=== PATIENT | male | born 1955 | race Caucasian/White ===

== ENCOUNTER 2024-12-11 00:42 | Day surgery (SDC) | payer MEDICARE, MEDICAID, SELFPAY ==
[2024-12-09 09:51] VITALS: BMI 29.1
[2024-12-11] VITALS (7 sets, daily range): BP systolic 118–139; BP diastolic 57–68; PULSE 54–63; RESP 16–20; TEMP 36.1–36.7; O2SAT 96–99
--- OUTSIDE RECORDS SUMMARY | 2024-12-11 00:44 | XMS_ITS | Encounter Summary ---
Author Organization [facility] Address [address] [place] [address] Phone Care Team Providers Care Rough Planer Tender Name Role Phone Marco Woods MD Primary Care Provider Kirsten Niño MD Unavailable Chin Burrows MD Unavailable Kelsea Root RN Unavailable Unavailable Michelle Mendes APRN, CIGAR MAKING MACHINE OPERATOR Unavailable [phone] Chantelle Nix APRN, CIGAR MAKING MACHINE OPERATOR Unavailable Reason for Visit * Reason Comments Medication Refill Encounter Details Date Type Department Care Team (Late st Contact Info) Description 07/21/2023 Refill [facility] - Family Medicine - [place] [address] [place] [id number] Marco Woods MD [id number] [address] Medication Refill Social History Tobacco Use Types Packs/Day Years Used Date Smoking Tobacco: Never Smokeless Tobacco: Never Alcohol Use Standard Drinks/Week Comments Not Currently 0 (1 standard drink = 0.6 oz pur e alcohol) Education Answer Date Recorded What is the highest level of school you have completed or the highest degree you have received? 12th grade 04/03/2023 Sexually Active Control Partners Comments Not Currently Comments No Sex and Gender Information Value Date Recorded Sex Assigned at Female 11/22/2023 11:58 AM SWEET POTATO DISINTEGRATOR Legal Sex Female 11:34 PM CDT Gender Identity Female 11/22/2023 11:58 AM SWEET POTATO DISINTEGRATOR Sexual Orientation Not on file Occupation Industry Job Start Date Job End Date disabled Not on file Not on file Not on file COVID-19 Exposure Response Date Recorded In the last 10 days, have yo u been in contact with someone who was confirmed or suspected to have Coronavirus/COVID-19? No / Unsure 06/28/2023 7:54 AM CDT documented as of this encounter Miscellaneous Notes * Telephone Encounter - Amada Orozco RN - 07/23/2023 9:53 AM CDT Name from pharmacy: CYCLOBENZAPRINE 5MG TABLETS Will file in chart as: cyclobenzaprine (FLEXERIL) 5 MG Tablet The original prescription was discontinued on 06/03/2023 by Nash Page MD for the following reason: Therapy completed. documented in this encounter Plan of Treatment Upcoming Encounters Date Type Department Care Team (Late st Contact Info) Description 12/15/2024 3:30 PM SWEET POTATO DISINTEGRATOR Office Visit [facility] - Pulmonology & Sleep Medicine [facility] [address] [place] [address] Michelle Mendes APRN, DREW [address] [facility] [address] [place] [address] 01/30/2025 9:00 AM CDT Office Visit [facility] Medical [facility] - Endocrinology - [place] [address] [place] [id number] Kirsten Niño MD [address] [facility] [address] [place] [address] documented as of this encounter Visit Diagnoses Not on filedocumented in this encounter Additional Health Concerns Infection Onset Date Last Indicated Resolved Time COVID - 19 11/01/2023 11/01/2023 11/11/2023 12:1 6 AM SWEET POTATO DISINTEGRATOR COVID - 19 06/25/2024 06/25/2024 06/25/2024 6:36 PM CDT Assessment Noted Time PHQ-9 Depression Total Score: 0 11/22/19 10:00 AM SWEET POTATO DISINTEGRATOR documented as of this encounter Care Teams Rough Planer Tender Relationship Specialty Start Date End Date Marco Woods MD [address] [facility] [address] [place] [address] PCP - General Family Medicine 11/22/17 Kirsten Niño MD [address] [facility] [address] [place] [address] Consulting Physician Endocrinology 07/17/22 Chin Burrows MD [address] [facility] [address] [place] [address] Consulting Physician General Surgery 11/22/22 Kelsea Root, JUWAN [place] [employer] Reactor Operator 06/15/23 08/26/23 Michelle Mendes APRN, CIGAR MAKING MACHINE OPERATOR [address] [facility] [address] [place] [address] Nurse Practitioner Advanced Practice Nurse 08/14/22 Chantelle Nix APRN, CIGAR MAKING MACHINE OPERATOR [address] [place] [address] Nurse Practitioner Advanced Practice Nurse 02/19/24 documented as of this encounter
--- OUTSIDE RECORDS SUMMARY | 2024-12-11 00:44 | XMS_ITS | Clinical Summary ---
Author Organization [facility] Address [address] [facility] [place] [address] Phone Care Team Providers Care Detective Homicide Squad Name Role Phone Marco Woods MD Primary Care Provider [phone] Kirsten Niño MD Unavailable Chin Burrows MD Unavailable [phone] Michelle Mendes CIGARETTE PAPER TESTER, PLAYGROUND ATTENDANT Unavailable SchChantelle ugalde APRN, PLAYGROUND ATTENDANT Unavailable Allergies Active Allergy Reactions Criticality Noted Date Comments Codeine Sulfate Diarrhea,Nausea,Vomi ti ng Alendronate Other (see Comments) 12/31/2015 Fever, chills, achy Metoclopramide Hcl Other (see Comments) High 022 Tremor/falls Metronidazole Swelling 07/30/2018 Nsaids Other (see Comments) No reaction but not suppose to have because of ulcers Quetiapine Other (see Comments) 12/27/2023 Leg spasms Ropinirole Other (see Comments) 11/02/2023 sneezing Tolmetin Other (see Comments) Low No reaction but not suppose to have because of ulcers Medications Acetaminophen (TYLENOL PO) Take 500 mg by mouth every 8 hours as needed. Active rOPINIRole (REQUIP) 2 MG Tablet TAKE 1 TABLET BY MOUTH EVERY NIGHT 90 Tablet 2 05/13/20 24 Active Linzess 145 MCG CapsuleIndicati ons:Chronic constipation TAKE 1 CAPSULE BY MOUTH EVERY MORNING BEFORE BREAKFAST 30 Capsule 2 10/06/20 24 Active atorvastatin (LIPITOR) 20 MG Tablet Take 1 Tablet by mouth daily. 90 Tablet 3 11/04/19 25 Active ramelteon (ROZEREM) 8 MG Tablet Take 1 Tablet by mouth nightly. 90 Tablet 1 11/04/19 25 Active Phenylephrine-D M-GG-APAP (SUDAFED PE COLD/COUGH PO) Take by mouth. Active levothyroxine (SYNTHROID) 112 MCG Tablet Take 1 Tablet by mouth daily. 90 Tablet 1 11/17/19 25 Active hydrOXYzine (ATARAX) 25 MG Tablet TAKE 2 TABLETS BY MOUTH TWICE A DAY 90 Tablet 11/25/19 25 Active OLANZapine (ZYPREXA) 10 MG Tablet TAKE 1 TABLET BY MOUTH EVERY NIGHT AT BEDTIME 28 Tablet 2 11/25/19 25 Active sertraline (ZOLOFT) 50 MG Tablet TAKE 1 TABLET BY MOUTH TWICE A DAY 56 Tablet 2 11/25/19 25 Active traMADol (ULTRAM) 50 MG TabletIndicatio ns:Pain of upper abdomen Take 1 Tablet by mouth every 8 hours as needed for Moderate or more severe pain. 60 Tablet 12/02/19 25 Active Fluticasone-Ume clidin-Vilant (Trelegy Ellipta) 100-62.5-25 MCG/ACT AEROSOL POWDER, BREATH ACTIVATED take 1 Puff by inhalation daily. 1 Each 3 12/04/19 25 Active OXYGEN CONCENTRATOR 2 L/min by Does not apply route as needed for Other (shortness of breath). Discontinued(E rror) atorvastatin (LIPITOR) 20 MG Tablet TAKE 1 TABLET BY MOUTH DAILY 28 Tablet 5 07/08/20 24 2024 Discontinued(M ed List Clean Up) levothyroxine (SYNTHROID) 112 MCG Tablet Take 1 Tablet by mouth daily. 90 Tablet 1 07/25/20 24 2024 Discontinued(R eorder) DM-APAP-CPM (CORICIDIN HBP PO) Take by mouth. 2024 Discontinued(M ed List Clean Up) sertraline (ZOLOFT) 50 MG Tablet TAKE 1 TABLET BY MOUTH TWICE A DAY 56 Tablet 11/02/19 25 2024 Discontinued OLANZapine (ZYPREXA) 10 MG Tablet TAKE 1 TABLET BY MOUTH EVERY NIGHT AT BEDTIME 28 Tablet 11/02/19 25 2024 Discontinued hydrOXYzine (ATARAX) 25 MG Tablet TAKE 2 TABLETS BY MOUTH TWICE A DAY 90 Tablet 11/02/19 25 2024 Discontinued atorvastatin (LIPITOR) 40 MG Tablet TAKE 1 TABLET BY MOUTH DAILY 28 Tablet 11/02/19 25 2024 Discontinued(M ed List Clean Up) Benzonatate 200 MG Capsule Take 1 Capsule by mouth 3 times daily as needed for Cough for up to 14 days. 42 Capsule 11/14/19 25 2024 Additional Information Patient not taking.Reported on 11/24/2024 Amoxicillin 500 MG Tablet Take 1 Tablet by mouth 3 times daily for 7 days. 21 Tablet 11/14/19 25 2024 Active Problems Problem Noted Date Diagnosed Date Suicidal ideation 06/26/2024 Pruritus 02/21/2024 Acute metabolic encephalopathy 06/08/2023 COPD (chronic obstructive pulmonary disease) Bilateral lower extremity edema 06/08/2023 Prolonged Q-T interval on ECG 06/08/2023 Hypokalemia 06/08/2023 Thrombocytosis 06/08/2023 Bilateral pneumonia 06/02/2023 Acute respiratory failure with hypoxia Acute encephalopathy 06/01/2023 Sepsis 06/01/2023 COPD exacerbation 06/01/2023 Generalized weakness 06/01/2023 Frequent falls 06/01/2023 Polypharmacy 06/01/2023 Dyspnea 11/24/2022 Depression 11/24/2022 Long-term use of high-risk medication 11/09/2021 Gastroparesis 11/09/2021 SOB (shortness of breath) 08/08/2021 Hypertension 10/24/2019 Acquired hypothyroidism 05/05/2019 Class 3 severe obesity due t o excess calories with serious comorbidity and body mass index (BMI) of 40.0 to 44.9 in adult 05/05/2019 Thyroid nodule 05/05/2019 Goiter, nontoxic, multinodular 01/28/2019 Overview (01/28/2019): - s/p CNBx Left nodule 03/31/13: Dx B9 follicular nodule d/w goiter. new ill-defined nodule likely has been there but not vis well since size of lobe not changed on serial US: 02/11/13, 03/31/13, 09/01/14, 02/05/15 Nasal obstruction without choanal atresia 2018 DNS (deviated nasal septum) 12/04/2018 Hypertrophy of inferior nasal turbinate 12/04/19 19 PNAR (perennial non-allergic rhinitis) 9 Facet arthropathy, lumbar 10/02/2018 UARS (upper airway resistance syndrome) 09/27/20 18 Sleep stage dysfunction 09/27/2018 Sacroiliac joint dysfunction of both sides 04/11 Pain of both hip joints 03/12/2018 Breast mass, right 02/06/2018 Anxiety 11/22/2017 Bipolar 1 disorder 11/22/2017 Vitamin D deficiency 11/22/2017 Skin lesion 11/22/2017 Physical exam, annual (Adult) 11/22/2017 Dementia without behavioral disturbance 08/15/20 17 Iron deficiency 02/10/2016 Asthma Hypothyroidism, secondary Organic periodic limb movement sleep disorder Non-alcoholic fatty liver disease Constipation GERD (gastroesophageal reflux disease) Gastroptosis Osteoporosis Hyperparathyroidism Hypercalcemia Leucocytosis Resolved Problems Problem Noted Date Diagnosed Date Resolved Date Postoperative complication 11/24/2022 0 11/26/2022 Interstitial lung disease 10/11/2022 Encounters Date Type Department Care Team Description 12/04/2024 Refill [facility] - Pulmonology & Sleep Medicine [facility] [address] [place] [phone] Michelle Mendes APRN, PLAYGROUND ATTENDANT 12/04/2024 Telephone [facility] Call Center [address] [place] [phone] Marco oWods MD Advice Only 12/02/2024 3:15 PM TELEVISION HOST Office Visit [facility] - Family Medicine - [place] [address] [place] [phone] Marco Woods MD Mixed hyperlipidemia (Primary Dx); Essential hypertension; Pain of upper abdomen Discharge Disposition: Discharged to home or Selfcare 12/02/2024 Travel 12/02/2024 Telephone [facility] - Endocrinology - [place] [address] [place] [phone] Kirsten Niño MD Results 12/01/2024 [facility] [address] [place] [phone] Marco Woods MD Erroneous Encounter - Disregard 12/01/2024 Nurse Triage [facility] [address] [place] [phone] Marco Woods MD Abdominal Pain; Fever; Follow-up 12/01/2024 Telephone [facility] [address] [place] [phone] Marco Woods MD Advice Only 11/28/2024 2:25 PM TELEVISION HOST - 11/28/2024 11:59 PM TELEVISION HOST [facility] [address] [place] [phone] Dianna Cancino APRN, CNP Discharge Disposition: Discharged to home or Selfcare 11/28/2024 2:01 PM TELEVISION HOST - 11/28/2024 2:24 PM TELEVISION HOST [facility] Mamm[facility] [address] [place] [phone] Kirsten Niño MD Discharge Disposition: Discharged to home or Selfcare 11/28/2024 Travel 11/28/2024 Transcribe Orders [facility] Cardiology Services [address] [place] [phone] Dianna Cancino APRN, CNP Abdominal distention (Primary Dx); Nausea and vomiting, unspecified vomiting type 11/25/2024 Refill [facility] Medical [facility] - Family [facility] [address] [place] [phone] Marco Woods MD Medication Refill 11/24/2024 Nurse [facility]riage [facility] [address] [place] [phone] Marco Woods MD Vomiting 11/24/2024 Results Follow-Up [facility] Endocrinology - [place] [address] [place] [phone] Kirsten Niño MD 11/21/2024 [facility] [address] [place] [phone] Marco Woods MD Advice Only; Medication Problem 11/17/2024 [facility] [place] [address] [place] [phone] Kirsten Niño MD Medication Refill 11/17/2024 [facility] [address] [place] [phone] Marco Woods MD Appointment; Abdominal Pain; Abdominal Pressure 11/14/2024 Telephone [facility] [address] [place] [phone] Marco Woods MD Medication Refill; Medication Management 11/14/2024 Telephone [facility] [address] [place] [phone] Marco Woods MD Erroneous Encounter - Disregard 11/12/2024 Nurse [facility]riage [facility] [address] [place] [phone] Marco Woods MD Follow-up; Dizziness; Cough 11/06/2024 [facility] [place] [address] [place] [phone] Kirsten Niño MD Results 11/06/2024 Telephone [facility] [address] [place] [phone] Marco Woods MD Results 11/05/2024 [facility]phone [facility] - [place] [address] [place] [address] Marco Woods MD Medication Management 11/05/2024 Telephone [facility] [place] [address] [place] [address] Kirsten Niño MD 11/04/2024 Telephone [facility] Call Center [address] [place] [phone] Marco Woods MD Medication Management 11/04/2024 Refill [facility] [address] [place] [address] Marco Woods MD Medication Refill 11/04/2024 Travel 11/04/2024 [facility]phone [facility] [place] [address] Kirsten Niño MD Care Management 11/04/2024 Telephone [facility] Call Center [address] [place] [phone] Marco Woods MD Medication Management; Follow-up 11/03/2024 Nurse Triage [facility] Call [facility] [address] [place] [phone] Marco Woods MD Follow-up; Advice Only 10/31/2024 3:15 PM TELEVISION HOST Office Visit [facility] [address] [place] [address] Marco Woods MD Essential hypertension (Primary Dx); Mixed hyperlipidemia; Elevated LFTs; Dry mouth and eyes; Weight loss Discharge Disposition: Discharged to home or Selfcare 10/31/2024 2:15 PM TELEVISION HOST [facility] [address] [place] [address] Kirsten Niño MD Acquired hypothyroidism (Primary Dx); Osteoporosis, unspecified osteoporosis type, unspecified pathological fracture presence; Hypercalcemia; Elevated liver enzymes Discharge Disposition: Discharged to home or Selfcare 10/31/2024 Refill [facility] [address] [place] [address] Marco Woods MD Medication Refill 10/31/2024 Nurse Triage [facility] [address] [place] [phone] Marco Woods MD Gas 10/30/2024 3:57 PM TELEVISION HOST - 10/30/2024 9:33 PM TELEVISION HOST [facility] [address] [place] [phone] Jesse Aguirre, Tyrone Parker MD LLQ pain Discharge Disposition: Discharged to home or Selfcare 10/30/2024 Travel 10/30/2024 [facility] [address] [phone] Marco Woods MD Sinus Problem; Cough 10/30/2024 [facility]phone [facility] Call [address] [phone] Marco Woods MD Medication Management 10/03/2024 Refill [facility] [address] [place] [phone] Chantelle Nix APRN, PLAYGROUND ATTENDANT Medication Refill from Last 3 Months Immunizations Immunization Administration Dates Next Due Covid-19, Mrna, Lnp-s, Pf, 3 0 Mcg/0.3 Ml Dose (Compring) 04/23/2021,03/26/2021 Hepatitis A And Hepatitis B Vaccine 03/04/2015 Influenza Vaccine 07/10/2019, 8,06/24/2017,2015,06/01/2015 Influenza Vaccine greater than 3 yrs 06/29/2016 Influenza Vaccine, Quadrivalent, PF 07/10/2019,0 06/19/2018 Influenza, High-dose, Quadrivalent 08/05,09/10/2022,06/09/2021,2019 Influenza, Injectable, Quadrivalent 06/22/2019 Influenza, Seasonal, Injecta ble, Undefined 2017,06/29/2016,06/14/2014 Influenza, high-dose, trivalent, PF 06/28/2020 Pneumococcal Vaccine - 13 Valent 06/19/2021 Pneumococcal Vaccine Adult - 23 Valent 09/10/2022,08/30/2017 Pneumococcal Vaccine, Unspec ified Formulation 09/14/2009 TDAP Vaccine 07/16/2021 Tetanus Toxoid, Unspecified Formulation 10/22/2003 Zoster Vaccine Recombinant 04/09/2023 Family History Medical History Relation Name Comments Hypertension Brother 1 Hypertension Brother 2 Hypertension Brother 3 No Known Problems Daughter Congestive Heart Failure Father Hypertension Father Cancer Maternal Aunt Cancer Maternal Grandmother breast Hypertension Mother Congestive Heart Failure Paternal Grandfather Relation Name Status Comments Brother 1 Alive Brother 2 Alive Brother 3 Alive Daughter Alive Father Maternal Aunt Maternal Grandfather Maternal Grandmother Mother Paternal Grandfather Paternal Grandmother Social History Tobacco Use Types Packs/Day Years Used Date Smoking Tobacco: Never Smokeless Tobacco: Never Tobacco Cessation:Counseling Given: No Alcohol Use Standard Drinks/Week Comments Not Currently 0 (1 standard drink = 0.6 oz pur e alcohol) [facility] [employer] Answer Date Recorded In the past 12 months has [employer], gas, oil, or water [employer] threatened to shut off services in your home? Patient unable to answer 06/25/2024 Social Connection and Isolation Panel [NHANES] A nswer Date Recorded In a typical week, how many times do you talk on the phone with family, friends, or neighbors? Patient declined 06/25/2024 How often do you get togethe r with friends or relatives? Patient declined 06/25/2024 How often do you attend orthodoxy or yazidi serv ices? Patient declined 06/25/2024 Do you belong to any clubs o r organizations such as orthodoxy groups, unions, fraternal or athletic groups, or school groups? Patient declined 06/25/2024 How often do you attend meet ings of the clubs or organizations you belong to? Patient declined 06/25/2024 Are you , , di vorced, , never , or living with a partner? Patient declined 06/25/2024 AUDIT-C Answer Date Recorded Q1: How often do you have a drink containing alc ohol? Patient declined 06/25/2024 Q2: How many drinks containi ng alcohol do you have on a typical day when you are drinking? Patient declined 06/25/2024 Q3: How often do you have si x or more drinks on one occasion? Patient declined 06/25/2024 Overall Financial Resource Strain (CARDIA) Answe r Date Recorded How hard is it for you to pa y for the very basics like food, housing, medical care, and heating? Patient declined 06/25/2024 PHQ-2 Answer Date Recorded Total Score - Questions 1-9 18 10/24 [facility] - Occupational Stress Questionnaire Answer Date Recorded Do you feel stress - tense, restless, nervous, or anxious, or unable to sleep at night because your mind is troubled all the time - these days? Patient declined 06/25/2024 Exercise Vital Sign Answer Date Recorde d On average, how many days pe r week do you engage in moderate to strenuous exercise (like a brisk walk)? Patient declined On average, how many minutes do you engage in exercise at this level? Patient declined 06/25/2024 Hunger Vital Sign Answer Date Recorded Within the past 12 months, y ou worried that your food would run out before you got the money to buy more. Patient unable to answer 06/25/2024 Within the past 12 months, t he food you bought just didn't last and you didn't have money to get more. Patient unable to answer 06/25/2024 PRAPARE - Transportation Answer Date Re corded In the past 12 months, has l ack of transportation kept you from medical appointments or from getting medications? Patient unable to answer 06/25/2024 In the past 12 months, has l ack of transportation kept you from meetings, work, or from getting things needed for daily living? Patient unable to answer 06/25/2024 Housing Stability Vital Sign Answer Ricardo e Recorded In the last 12 months, was t here a time when you were not able to pay the mortgage or rent on time? Patient declined 11/28/19 24 Number of Places Lived in the Last Year Not on f ile 11/28/2023 In the last 12 months, was t here a time when you did not have a steady place to sleep or slept in a longterm (including now)? Patient declined 11/28/2023 Housing Stability Vital Sign Answer Ricardo e Recorded In the last 12 months, was t here a time when you were not able to pay the mortgage or rent on time? Patient unable to answer 06/25/2024 In the past 12 months, how m any times have you moved where you were living? 0 06/25/2024 At any time in the past 12 m [facility], were you homeless or living in a longterm (including now)? Patient unable to answer 06/25/2024 Education Answer Date Recorded What is the highest level of school you have completed or the highest degree you have received? 12th grade 04/03/2023 Sexually Active Control Partners Comments Not Currently Comments No Sex and Gender Information Value Date Recorded Sex Assigned at Female 11/22/2023 11:58 AM TELEVISION HOST Legal Sex Female 11:34 PM CDT Gender Identity Female 11/22/2023 11:58 AM TELEVISION HOST Sexual Orientation Not on file Occupation Industry Job Start Date Job End Date disabled Not on file Not on file Not on file Last Filed Vital Signs Vital Sign Reading Time Taken Comments Blood Pressure 132/72 12/02/2024 2:39 PM TELEVISION HOST Pulse 77 12/02/2024 2:39 PM TELEVISION HOST Temperature 36.7 C (98.1 F) 12/02/2024 2:39 PM TELEVISION HOST Respiratory Rate 20 12/02/2024 2:39 PM TELEVISION HOST Oxygen Saturation 97% 12/02/2024 2:39 PM TELEVISION HOST Inhaled Oxygen Concentration - - Weight 63.5 kg (140 lb) 12/02/2024 2:39 PM TELEVISION HOST Height 162.6 cm (5' 4 ) 12/02/2024 2:39 PM TELEVISION HOST Body Mass Index 24.03 12/02/2024 2:39 PM TELEVISION HOST Plan of Treatment Upcoming Encounters Date Type Department Care Team (Late st Contact Info) Description 12/15/2024 3:30 PM TELEVISION HOST Office Visit [facility] - Pul[facility]ology & [facility] Medicine - [place] [address] [place] [phone] Michelle Mendes APRN, PLAYGROUND ATTENDANT [id number] [address] 01/30/2025 9:00 AM CDT Office Visit [facility] - Endocrinology - [place] [address] [place] [address] Kirsten Niño MD [address] [facility] [address] [place] [address] Health Maintenance Due Date Last Done Comments Cologuard 2005 Immunochemical Fecal Occult Blood 2005 Hepatitis B Immunization (2 of 3 - Hep B Twinrix 3-dose series) 04/01/2015 03/04/2015 Respiratory Syncytial Virus (RSV) Immunization (Adult) (1 - Risk 60-74 years 1-dose series) 2015 Colonoscopy 06/20/2022 06/20/2019, 08/12/2018 Colorectal Cancer Screening 06/20/2022 Zoster Immunization (2 of 2) 06/04/2023 04/09/2023 Mammogram 05/08/2024 05/08/2023, 01/21, 01/03/2021, Additional history exists Influenza Immunization (#1) 06/22/202407/22, 09/10/2022, 06/09/2021, Additional history exists SARS-COV-2 Immunization ( season) 2024 08/05/2023, 04/23/2021, 03/26/2021 DEXA Bone Density 11/28/2026 11/28/2024, , 12/04/2017, Additional history exists Td Immunization Every 10 Years (Adults With 1 Tdap) 07/16/2031 07/16/2021 06/20/2019, 08/12/2018 Pneumococcal Immunization (50+ years) Completed 09/10/2022, 06/19/2021, 08/30/2017, Additional history exists Pneumococcal Immunization Combined Discontinued 09/10/2022, 06/19/2021, 08/30/2017, Additional history exists Hepatitis C Virus (HCV) Screening Completed 02/23/2023, 02/23/2023, 01/18/2017 Meningococcal Immunization (ACWY) Aged Out No longer eligible based on patient's age to complete this topic Rotavirus Immunization Aged Out No lo nger eligible based on patient's age to complete this topic Medical Devices Implanted Type Area Administrative Office Specialist Device Identifier Shelf Expiration Date Model / Serial / Lot Clip 360 Resolution 235cm - [id number] Implanted:Qty: 2 on 07/12/2020 by Dani Garrett DO at [facility] IMPLANT [employer] 05/03/2023 [id number] / [id number] / [id number] Procedures Procedure Name Priority Date/Time Associated Diagnosis Comments XR ABDOMINAL SERIES WITH CHEST VIEW Routine 11/28/2024 2:31 PM TELEVISION HOST Abdominal distention Nausea and vomiting, unspecified vomiting type YU BONE DENSITOMETRY AXIAL SKELETON Routine 11/28/2024 2:24 PM TELEVISION HOST Hyperparathyroidis m (HCC) Osteoporosis, unspecified osteoporosis type, unspecified pathological fracture presence LIPID PANEL Today 11/04/2024 11:13 AM TELEVISION HOST Mixed hyperlipidemia SJOGRENS PANEL, SSA & SSB Routine 11/04/2024 11:13 AM TELEVISION HOST Elevated LFTs Dry mouth and eyes C-REACTIVE PROTEIN (CRP) QUANT Today 11/04/2024 11:13 AM TELEVISION HOST Elevated LFTs Dry mouth and eyes ERYTHROCYTE SEDIMENTATION RATE (ESR) Today 11/04/2024 11:13 AM TELEVISION HOST Elevated LFTs Dry mouth and eyes ELECTROPHORESIS W/ TOTAL PROTEIN SERUM Routine 11/04/2024 11:13 AM TELEVISION HOST Elevated LFTs Dry mouth and eyes Weight loss THYROXINE (T4) FREE Routine 11/04/2024 11:13 AM TELEVISION HOST Acquired hypothyroidism THYROID STIMULATING HORMONE (TSH) Routine 11/04/2024 11:13 AM TELEVISION HOST Acquired hypothyroidism CT ABDOMEN PELVIS W/O CONTRAST Stat with Interpretation 10/30/2024 7:51 PM TELEVISION HOST URINALYSIS REFLEX IF INDICATED BY ABNORMAL RESULTS STAT 10/30/2024 6:16 PM TELEVISION HOST CBC WITH AUTO DIFFERENTIAL STAT 10/30/2024 4:12 PM TELEVISION HOST LIPASE STAT 10/30/2024 4:12 PM TELEVISION HOST COMPLETE BLOOD COUNT (CBC) WITH DIFF STAT 10/30/2024 4:12 PM TELEVISION HOST CMP (COMPREHENSIVE METABOLIC PANEL) STAT 10/30/2024 4:12 PM TELEVISION HOST YU SCREENING BILATERAL DIGITAL W CAD W NATALIIA Routine 05/08/2023 12:09 PM CDT Encounter for screening mammogram for malignant neoplasm of breast HEPATITIS PANEL ACUTE (AHP) 02/23/2023 12:00 AM CDT from Last 3 Months or Most Recently Relevant to Health Maintenance Results * XR ABDOMINAL SERIES WITH CHEST VIEW (11/28/2024 2:31 PM TELEVISION HOST) Anatomical Region Laterality Modality Abdomen N/A Digital Radiogra phy 12/02/2024 9:19 AM TELEVISION HOST Impressions 12/02/2024 9:22 AM TELEVISION HOST IMPRESSION: Mild patchy bibasilar airspace opacities, which is likely related to subsegmental atelectasis/scarring and less likely developing airspace disease. No definite evidence of bowel obstruction. Moderate amount of retained fecal debris in the colon, which is concerning for constipation. Narrative 12/02/2024 9:22 AM TELEVISION HOST EXAM DESCRIPTION: XR ABDOMINAL SERIES WITH CHEST VIEW REASON FOR STUDY: mid chest pain, epigastric pain abdominal distention x 1 year. Hx. abdominal cancer TECHNIQUE: Single radiographic view of the chest with upright and supine of the abdomen. COMPARISON: 10/30/2024 FINDINGS: LUNGS: There is no definite evidence of a pneumothorax. There is no definite evidence of a pleural effusion. There is focal scarring and atelectasis in the upper mid right lung. There are mild patchy bibasilar airspace opacities. HEART/MEDIASTINUM: The heart, mediastinum, and pulmonary vasculature are grossly stable. FREE AIR: There is no definite evidence of free air under the diaphragm. BOWEL: There is no definite evidence of a bowel obstruction. There is a moderate amount of retained fecal debris in the colon, which is most significant proximally. SOFT TISSUES: There are scattered faint vascular calcifications noted. LINES/TUBES: None. BONES: There is mild osteopenia with degenerative changes of the bilateral shoulders, spine, bilateral sacroiliac joints, and bilateral hips. THIS IS AN ELECTRONICALLY VERIFIED FINAL REPORT 12/02/2024 9:19 AM - Electronically signed by Lokesh Antoine D.O. PS: PS Report ID: [id number] Reading Location: [id number] Procedure Note Lokesh Antoine DO - 12/02/2024 EXAM DESCRIPTION: XR ABDOMINAL SERIES WITH CHEST VIEW REASON FOR STUDY: mid chest pain, epigastric pain abdominal distention x 1 year. Hx. abdominal cancer TECHNIQUE: Single radiographic view of the chest with upright and supine of the abdomen. COMPARISON: 10/30/2024 FINDINGS: LUNGS: There is no definite evidence of a pneumothorax. There is no definite evidence of a pleural effusion. There is focal scarring and atelectasis in the upper mid right lung. There are mild patchy bibasilar airspace opacities. HEART/MEDIASTINUM: The heart, mediastinum, and pulmonary vasculature are grossly stable. FREE AIR: There is no definite evidence of free air under the diaphragm. BOWEL: There is no definite evidence of a bowel obstruction. There is a moderate amount of retained fecal debris in the colon, which is most significant proximally. SOFT TISSUES: There are scattered faint vascular calcifications noted. LINES/TUBES: None. BONES: There is mild osteopenia with degenerative changes of the bilateral shoulders, spine, bilateral sacroiliac joints, and bilateral hips. THIS IS AN ELECTRONICALLY VERIFIED FINAL REPORT 12/02/2024 9:19 AM - Electronically signed by Lokesh Antoine D.O. PS: PS Report ID: [id number] Reading Location: [id number] IMPRESSION: Mild patchy bibasilar airspace opacities, which is likely related to subsegmental atelectasis/scarring and less likely developing airspace disease. No definite evidence of bowel obstruction. Moderate amount of retained fecal debris in the colon, which is concerning for constipation. us Dianna Cancino CIGARETTE PAPER TESTER, PLAYGROUND ATTENDANT IMG DIAGNOSTIC ORDERABLE S Final Result * [facility] BONE DENSITOMETRY AXIAL SKELETON (11/28/2024 2:24 PM TELEVISION HOST) Anatomical Region Laterality Modality BODY N/A Computed Radiogr aphy 12/01/2024 9:02 AM TELEVISION HOST Impressions 12/01/2024 9:05 AM TELEVISION HOST IMPRESSION: Low bone mass REFERENCE: Bone mineral density: T-Score: Normal (T-score above or = -1.0) Low bone mass (T-score between -1.0 and -2.5) replaces the previously used term osteopenia Osteoporosis (T-score = or below -2.5) Z-Score: Within the expected range for age (Z-score above -2.0) Below the expected range for age (Z-score is -2.0 or below) Please see below follow up recommendations. Medical evaluation for secondary causes of low bone mineral density may be appropriate. FRAX is a World Health Organization validated fracture risk assessment tool that calculates a person's 10 year probability of a major osteoporosis related fracture and hip fracture. According to the National Osteoporosis Foundation guidelines, postmenopausal women and men age 50 or older with low bone mass and a 10 year probability of a major osteoporosis related fracture = or greater than 20% or a 10 year probability of a hip fracture = or greater than 3% should be considered for pharmacological treatment for the prevention of osteoporosis. For further information, including treatment recommendations, please refer to the 2019 ISCD Official Positions (http://www.iscd.org) and the NOF's Clinician's Guide to Prevention and Treatment of Osteoporosis (http://www.nof.org/professionals/clinical-guidelines) Narrative 12/01/2024 9:05 AM TELEVISION HOST EXAM DESCRIPTION: [facility] BONE DENSITOMETRY AXIAL SKELETON REASON FOR STUDY: 69 y/o year old F with given history of: Hyperparathyroidism. Postmenopausal status. History of prior fracture and secondary osteoporosis. Patient previously took vitamin-D. Patient takes Prolia. 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 CLINICAL INFORMATION: Current height: 59 inches Maximum height: 62 inches Weight: 125 pounds Risk factors: Prior fracture and secondary osteoporosis. COMPARISON: 01/12/2021 FINDINGS: AP LUMBAR SPINE L1-L4: Total BMD is 1.162 g/cm2 T-score is -0.3 This is a 5.8% increase in comparison to prior exam which is statistically significant. LEFT HIP: Total BMD is 0.798 g/cm2 T-score is -1.7 This is an 8.7% decrease in comparison to prior exam which is statistically significant. Femoral neck BMD is 0.699 g/cm2 T-score is -2.4 Left forearm BMD in the radius 33% is 0.829 g/cm2 T-score is -0.7 This is a 3.3% decrease in comparison to prior exam which is not statistically significant FRAX: 10 year risk for a major osteoporotic fracture is 22.7 %, 10 year risk for a hip fracture is 5.5 % THIS IS AN ELECTRONICALLY VERIFIED FINAL REPORT 12/01/2024 9:02 AM - Electronically signed by Kaitlin Weems M.D. TW: TW Report ID: [id number] Reading Location: [place] [id number] Procedure Note Kaitlin Weems MD - 12/01/2024 EXAM DESCRIPTION: [facility] BONE DENSITOMETRY AXIAL SKELETON REASON FOR STUDY: 69 y/o year old F with given history of: Hyperparathyroidism. Postmenopausal status. History of prior fracture and secondary osteoporosis. Patient previously took vitamin-D. Patient takes Prolia. 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 CLINICAL INFORMATION: Current height: 59 inches Maximum height: 62 inches Weight: 125 pounds Risk factors: Prior fracture and secondary osteoporosis. COMPARISON: 01/12/2021 FINDINGS: AP LUMBAR SPINE L1-L4: Total BMD is 1.162 g/cm2 T-score is -0.3 This is a 5.8% increase in comparison to prior exam which is statistically significant. LEFT HIP: Total BMD is 0.798 g/cm2 T-score is -1.7 This is an 8.7% decrease in comparison to prior exam which is statistically significant. Femoral neck BMD is 0.699 g/cm2 T-score is -2.4 Left forearm BMD in the radius 33% is 0.829 g/cm2 T-score is -0.7 This is a 3.3% decrease in comparison to prior exam which is not statistically significant FRAX: 10 year risk for a major osteoporotic fracture is 22.7 %, 10 year risk for a hip fracture is 5.5 % THIS IS AN ELECTRONICALLY VERIFIED FINAL REPORT 12/01/2024 9:02 AM - Electronically signed by Kaitlin Weems M.D. TW: FRANC Report ID: [id number] Reading Location: [id number] IMPRESSION: Low bone mass REFERENCE: Bone mineral density: T-Score: Normal (T-score above or = -1.0) Low bone mass (T-score between -1.0 and -2.5) replaces the previously used term osteopenia Osteoporosis (T-score = or below -2.5) Z-Score: Within the expected range for age (Z-score above -2.0) Below the expected range for age (Z-score is -2.0 or below) Please see below follow up recommendations. Medical evaluation for secondary causes of low bone mineral density may be appropriate. FRAX is a World Health Organization validated fracture risk assessment tool that calculates a person's 10 year probability of a major osteoporosis related fracture and hip fracture. According to the National Osteoporosis Foundation guidelines, postmenopausal women and men age 50 or older with low bone mass and a 10 year probability of a major osteoporosis related fracture = or greater than 20% or a 10 year probability of a hip fracture = or greater than 3% should be considered for pharmacological treatment for the prevention of osteoporosis. For further information, including treatment recommendations, please refer to the 2019 ISCD Official Positions (http://www.iscd.org) and the NOF's Clinician's Guide to Prevention and Treatment of Osteoporosis (http://www.nof.org/professionals/clinical-guidelines) Kirsten Niño MD IMG DEXA ORDERABLES Final Result * THYROXINE (T4) FREE (11/04/2024 11:13 AM TELEVISION HOST) T4 FREE 1.0 0.7 - 1.9 ng/dL 11/04/2024 12:19 PM TELEVISION HOST [facility] Blood Venipuncture / Unknown 11/04/2024 11:13 AM TELEVISION HOST 11/04/2024 11:36 AM TELEVISION HOST us Kirsten Niño MD CHEMISTRY ORDERABLES Final Resul t Performing Organization Address City/[facility]/ZIP Co de Phone Number [facility] [place] [address] * THYROID STIMULATING HORMONE (TSH) (11/04/2024 11:13 AM TELEVISION HOST) TSH 2.212 0.300 - 5.000 mIU/L 11/04/2024 12:19 PM TELEVISION HOST [facility] Blood Venipuncture / Unknown 11/04/2024 11:13 AM TELEVISION HOST 11/04/2024 11:36 AM TELEVISION HOST us Kirsten Niño MD CHEMISTRY ORDERABLES Final Resul t Performing Organization Address City/[facility] Co de Phone Number [facility] [place] [address] * SJOGRENS PANEL, SSA & SSB (11/04/2024 11:13 AM TELEVISION HOST) SS-A 0.2 <1.0 AI 11/04/2024 11:08 PM TELEVISION HOST [facility] SS-B <0.2 <1.0 AI 11/04/2024 11:08 PM TELEVISION HOST [facility] Blood Venipuncture / Unknown 11/04/2024 11:13 AM TELEVISION HOST 11/04/2024 11:36 AM TELEVISION HOST Narrative [facility] - 11/04/2024 11:08 PM TELEVISION HOST Antibody testing was performed by multiplex flow immunoassay on the [employer] platform. us Marco Woods MD IMMUNOLOGY ORDERABLES Final R esult [facility] [address] [place] [address], * ERYTHROCYTE SEDIMENTATION RATE (ESR) (11/04/2024 11:13 AM TELEVISION HOST) ESR (SED RATE, ERYTHROCYTE SEDIMENTATION RATE) 22 <30 mm/h 11/04/2024 12:07 PM TELEVISION HOST [facility] Comment: Patients presenting with increased level of fibrinogen, gamma globulins, or abnormally shaped RBCs could affect the results for the erythrocyte sedimentation rate (ESR). Results should be clinically correlated. Blood Venipuncture / Unknown 11/04/2024 11:13 AM TELEVISION HOST 11/04/2024 11:36 AM TELEVISION HOST Marco Woods MD HEMATOLOGY ORDERABLES Final R esult Performing Organization Address City/[facility]/ZIP Co de Phone Number [facility] [place] [address] * LIPID PANEL (11/04/2024 11:13 AM TELEVISION HOST) CHOLESTEROL 170 <200 mg/dL 11/04/2024 12:02 PM TELEVISION HOST [facility] TRIGLYCERIDES 78 <150 mg/dL 11/04/2024 12:02 PM TELEVISION HOST [facility] HDL CHOLESTEROL 72 >40 mg/dL 12:02 PM [facility] LDL 82 <130 mg/dL 11/04/2024 12:02 PM TELEVISION HOST [facility] VLDL 16 10 - 50 mg/dL 11/04/2024 12:02 PM [facility] CHOL/HDL RATIO 2.4 0.0 - 4.4 11/04/2024 12:02 PM [facility] NON-HDL CHOLESTEROL 98 <130 mg/dL 11/04/2024 12:02 PM [facility] IS THE PATIENT REQUIRED TO BE FASTING? No 11/04/2024 12:02 PM [facility] Blood Venipuncture / Unknown 11/04/2024 11:13 AM TELEVISION HOST 11/04/2024 11:36 AM TELEVISION HOST Marco Woods MD CHEMISTRY ORDERABLES Final Re sult [facility] [address] [place] [address] * (ABNORMAL) ELECTROPHORESIS W/ TOTAL PROTEIN SERUM (11/04/2024 11:13 AM TELEVISION HOST) TOTAL PROTEIN 6.8 6.0 - 8.0 g/dL 11/06/2024 9:44 AM [facility] % ALBUMIN 52.8(L) 55.8 - 66.7 % 11/06/2024 9:44 AM [facility] ALBUMIN SERUM 3.6 2.5 - 5.4 g/dL 11/06/2024 9:44 AM [facility] % ALPHA 1 GLOBULIN 4.7 2.9 - 4.9 % 11/06/2024 9:44 AM [facility] ALPHA 1 0.3 0.2 - 0.4 g/dL 11/06/2024 9:44 AM [facility] % ALPHA 2 GLOBULIN 10.2 7.1 - 11.8 % 11/06/2024 9:44 AM [facility] ALPHA 2 0.7 0.5 - 1.0 g/dL 11/06/2024 9:44 AM [facility] % BETA 17.7(H) 8.4 - 13.1 % 11/06/2024 9:44 AM [facility] BETA-GLOBULIN 1.2(H) 0.5 - 1.1 g/dL 11/06/2024 9:44 AM [facility] % GAMMA GLOBULIN 14.6 11.1 - 18.8 % 11/06/2024 9:44 AM [facility] GAMMA 1.0 0.7 - 1.5 g/dL 11/06/2024 9:44 AM [facility] SPE INTERPRETATION No abnormal protein band is detected by serum protein electrophore sis. Reviewed by Radha Buckner, Ph.D. [facility] LEACH TRACK 11/06/2024 9:44 AM TELEVISION HOST [facility] A/G RATIO, SERUM 1.1 11/06/19 9:44 AM TELEVISION HOST [facility] Blood Venipuncture / Unknown 11/04/2024 11:13 AM TELEVISION HOST 11/04/2024 11:36 AM TELEVISION HOST Narrative [facility] - 11/06/2024 9:44 AM TELEVISION HOST Reviewed by Rom Fajardo M.D. us Marco Woods MD CHEMISTRY ORDERABLES Final Re sult Performing Organization Address City/[facility]/ZIP Co de Phone Number [facility] [address] [place] [address], * C-REACTIVE PROTEIN (CRP) QUANT (11/04/2024 11:13 AM TELEVISION HOST) C-REACTIVE PROTEIN 0.22 <0.50 mg/dL 11/04/2024 12:02 PM TELEVISION HOST [facility] Blood Venipuncture / Unknown 11/04/2024 11:13 AM TELEVISION HOST 11/04/2024 11:36 AM TELEVISION HOST us Marco Woods MD CHEMISTRY ORDERABLES Final Re sult Performing Organization Address City/[facility]/ZIP Co de Phone Number [facility] [place] [address] * CT ABDOMEN PELVIS W/O CONTRAST (10/30/2024 7:51 PM TELEVISION HOST) Anatomical Region Laterality Modality Abdomen N/A Computed Tomogra phy 10/30/2024 8:19 PM TELEVISION HOST Impressions 10/30/2024 8:21 PM TELEVISION HOST IMPRESSION: No acute abnormality in the abdomen or pelvis. Changes from gastrojejunostomy. Moderate stool burden in the colon. Narrative 10/30/2024 8:21 PM TELEVISION HOST EXAM DESCRIPTION: CT ABDOMEN PELVIS W/O CONTRAST REASON FOR STUDY: LLQ abdominal pain and swelling that started last year, but has worsened in the last week. Constipation for several days . TECHNIQUE: CT scan of the abdomen and pelvis performed without intravenous and without oral contrast using helical scanning technique. Reconstructed coronal and sagittal MPR images reviewed. All images stored on PACS. Automated exposure control was used as a dose optimization technique for this examination. COMPARISON: 03/07/2024 FINDINGS: The sensitivity for detection of visceral lesions is diminished without the use of intravenous contrast. LOWER CHEST: No significant pulmonary abnormalities. No effusion. LIVER: Normal size. No identified cystic or solid masses. GALLBLADDER: Absent BILE DUCTS: Mild ectasia of the biliary system is likely secondary to post cholecystectomy state. SPLEEN: Absent PANCREAS: No identified cystic or solid masses. No significant calcifications. No adjacent inflammation or peripancreatic fluid collections. Pancreatic duct not dilated. ADRENALS: Normal. KIDNEYS/URINARY TRACT: No identified significant cystic or solid masses. No stones. No hydronephrosis or hydroureter. Urinary bladder is unremarkable. GI: There are changes from a gastrojejunostomy. There is mild colonic diverticulosis. No bowel obstruction. The appendix is not visualized but no secondary signs of appendicitis are seen. No evidence of obstruction. No bowel wall thickening. Moderate stool burden. PERITONEUM: No ascites or free air. RETROPERITONEUM: No mass or adenopathy. REPRODUCTIVE: No significant abnormality. VASCULATURE: No abdominal aortic aneurysm. MUSCULOSKELETAL: Multilevel degenerative changes are present without fracture. No concerning lesions are present. OTHER: No other abnormality. THIS IS AN ELECTRONICALLY VERIFIED FINAL REPORT 10/30/2024 8:19 PM - Electronically signed by Lavelle Jerome M.D. KN: KATHERINE Report ID: [id number] Reading Location: [id number] Procedure Note Lavelle Jerome MD - 10/30/2024 EXAM DESCRIPTION: CT ABDOMEN PELVIS W/O CONTRAST REASON FOR STUDY: LLQ abdominal pain and swelling that started last year, but has worsened in the last week. Constipation for several days . TECHNIQUE: CT scan of the abdomen and pelvis performed without intravenous and without oral contrast using helical scanning technique. Reconstructed coronal and sagittal MPR images reviewed. All images stored on PACS. Automated exposure control was used as a dose optimization technique for this examination. COMPARISON: 03/07/2024 FINDINGS: The sensitivity for detection of visceral lesions is diminished without the use of intravenous contrast. LOWER CHEST: No significant pulmonary abnormalities. No effusion. LIVER: Normal size. No identified cystic or solid masses. GALLBLADDER: Absent BILE DUCTS: Mild ectasia of the biliary system is likely secondary to post cholecystectomy state. SPLEEN: Absent PANCREAS: No identified cystic or solid masses. No significant calcifications. No adjacent inflammation or peripancreatic fluid collections. Pancreatic duct not dilated. ADRENALS: Normal. KIDNEYS/URINARY TRACT: No identified significant cystic or solid masses. No stones. No hydronephrosis or hydroureter. Urinary bladder is unremarkable. GI: There are changes from a gastrojejunostomy. There is mild colonic diverticulosis. No bowel obstruction. The appendix is not visualized but no secondary signs of appendicitis are seen. No evidence of obstruction. No bowel wall thickening. Moderate stool burden. PERITONEUM: No ascites or free air. RETROPERITONEUM: No mass or adenopathy. REPRODUCTIVE: No significant abnormality. VASCULATURE: No abdominal aortic aneurysm. MUSCULOSKELETAL: Multilevel degenerative changes are present without fracture. No concerning lesions are present. OTHER: No other abnormality. THIS IS AN ELECTRONICALLY VERIFIED FINAL REPORT 10/30/2024 8:19 PM - Electronically signed by Lavelle Jerome M.D. KN: KATHERINE Report ID: [id number] Reading Location: [place] [id number] IMPRESSION: No acute abnormality in the abdomen or pelvis. Changes from gastrojejunostomy. Moderate stool burden in the colon. Jesse Aguirre DO [facility] CT ORDERABLES Final Result * (ABNORMAL) URINALYSIS REFLEX IF INDICATED BY ABNORMAL RESULTS (10/30/2024 6:16 PM TELEVISION HOST) SPECIFIC GRAVITY 1.005 1.003 - 1.030 10/30/2024 6:32 PM TELEVISION HOST [facility] URINE PH 6.0 5.0 - 9.0 10/30/2024 6:32 PM TELEVISION HOST [facility] WBC ESTERASE Negative Negative 10/30/2024 6:32 PM TELEVISION HOST [facility] NITRITE Negative Negative 10/30/2024 6:32 PM TELEVISION HOST [facility] PROTEIN, RANDOM URINE 15 mg/dL(A) Negative 10/30/2024 6:32 PM TELEVISION HOST [facility] URINE GLUCOSE, QUAL Negative Negative 10/30/2024 6:32 PM TELEVISION HOST [facility] URINE KETONES Negative Negative 10/30/2024 6:32 PM TELEVISION HOST [facility] UROBILINOGEN Normal Normal mg/dL 10/30/2024 6:32 PM TELEVISION HOST [facility] URINE BLOOD Negative Negative nicolle/ul 10/30/2024 6:32 PM TELEVISION HOST [facility] URINALYSIS COLOR Colorless 10/30/19 6:32 PM TELEVISION HOST [facility] URINALYSIS CLARITY Clear 10/30/2024 6:32 PM [facility] Urine URINE SPECIMEN COLLECTION, CLEAN CATCH / Unknown Non-Phlebotomy Collection / Unknown 10/30/2024 6:16 PM TELEVISION HOST 10/30/2024 6:21 PM TELEVISION HOST Jesse Aguirre DO URINE ORDERABLES Final Result [facility] [place] [address] * (ABNORMAL) CBC with Auto Differential (10/30/2024 4:12 PM TELEVISION HOST) WBC 11.40 4.00 - 12.00 10(3)/mcL 10/30/2024 6:27 PM TELEVISION HOST [facility] RBC 4.03 3.80 - 5.30 10(6)/mcL 10/30/2024 6:27 PM TELEVISION HOST [facility] HEMOGLOBIN (HGB) 12.9 12.0 - 15.8 g/dL 10/30/2024 6:27 PM TELEVISION HOST [facility] HEMATOCRIT (HCT) 38.4 36.0 - 47.0 % 10/30/2024 6:27 PM TELEVISION HOST [facility] MCV 95.3 82.0 - 96.0 fL 10/30/2024 6:27 PM [facility] MCH 32.0 26.0 - 34.0 pg 10/30/2024 6:27 PM [facility] MCHC 33.6 31.0 - 36.0 g/dL 10/30/2024 6:27 PM [facility] PLATELET COUNT 624(H) 140 - 440 10(3)/mcL 10/30/2024 6:27 PM [facility] RDW 16.0(H) 11.8 - 15.5 % 10/30/2024 6:27 PM [facility] MPV 11.2 9.7 - 12.4 fL 10/30/2024 6:27 PM [facility] NEUTROPHILS 47.1 47.0 - 73.0 % 10/30/2024 6:27 PM [facility] LYMPHOCYTES 30.7 18.0 - 42.0 % 10/30/2024 6:27 PM [facility] MONOCYTES 14.3(H) 4.0 - 12.0 % 10/30/2024 6:27 PM [facility] EOSINOPHILS 6.1(H) 0.0 - 5.0 % 10/30/2024 6:27 PM [facility] BASOPHILS 1.8(H) 0.0 - 1.0 % 10/30/2024 6:27 PM [facility] ABSOLUTE NEUTROPHILS 5.36 1.60 - 7.70 10(3)/mcL 10/30/2024 6:27 PM [facility] ABSOLUTE LYMPHOCYTES 3.50(H) 1.30 - 3.20 10(3)/mcL 10/30/2024 6:27 PM [facility] ABSOLUTE MONOCYTES 1.63(H) 0.20 - 1.00 10(3)/mcL 10/30/2024 6:27 PM [facility] ABSOLUTE EOSINOPHIL 0.70(H) 0.00 - 0.40 10(3)/mcL 10/30/2024 6:27 PM TELEVISION HOST [facility] ABSOLUTE BASOPHILS 0.21(H) 0.00 - 0.10 10(3)/mcL 10/30/2024 6:27 PM TELEVISION HOST [facility] NRBC PER 100 WBC 0 10/30/19 6:27 PM TELEVISION HOST [facility] Blood Venipuncture / Unknown 10/30/2024 4:12 PM TELEVISION HOST 10/30/2024 6:21 PM TELEVISION HOST us Jesse Aguirre DO HEMATOLOGY ORDERABLES F inal Result [facility] [place] [address] * Lipase (10/30/2024 4:12 PM TELEVISION HOST) LIPASE 33 8 - 78 U/L 10/30/2024 6:51 PM TELEVISION HOST [facility] Blood Venipuncture / Unknown 10/30/2024 4:12 PM TELEVISION HOST 10/30/2024 6:21 PM TELEVISION HOST us Jesse Aguirre DO CHEMISTRY ORDERABLES Fi nal Result Performing Organization Address City/[facility]/ZIP Co de Phone Number [facility] [place] [address] * (ABNORMAL) CMP (Comprehensive Metabolic Panel) (10/30/2024 4:12 PM TELEVISION HOST) SODIUM 141 136 - 145 mmol/L 10/30/2024 6:51 PM TELEVISION HOST [facility] POTASSIUM 4.3 3.5 - 5.1 mmol/L 10/30/2024 6:51 PM TELEVISION HOST [facility] Comment: Specimen is hemolyzed. In vitro hemolysis could affect results. Clinical correlation advised. CHLORIDE 108(H) 98 - 107 mmol/L 10/30/2024 6:51 PM TELEVISION HOST [facility] CO2, VENOUS 22 22 - 30 mmol/L 10/30/2024 6:51 PM [facility] ANION GAP 15.3 <18.0 mmol/L 10/30/2024 6:51 PM [facility] GLUCOSE 77 70 - 99 mg/dL 10/30/2024 6:51 PM [facility] BUN 17 10 - 20 mg/dL 10/30/2024 6:51 PM [facility] CREATININE, BLOOD 0.71 0.60 - 1.00 mg/dL 10/30/2024 6:51 PM [facility] BUN/CREATININE RATIO 24(H) 12 - 20 ratio 10/30/2024 6:51 PM [facility] TOTAL PROTEIN 8.4(H) 6.3 - 8.2 g/dL 10/30/2024 6:51 PM [facility] Comment: Specimen is hemolyzed. In vitro hemolysis could affect results. Clinical correlation advised. ALBUMIN 4.3 3.5 - 5.0 g/dL 10/30/2024 6:51 PM [facility] A/G RATIO 1.0 1.0 - 2.2 10/30/2024 6:51 PM [facility] CALCIUM 9.9 8.7 - 10.5 mg/dL 10/30/2024 6:51 PM [facility] T BILI 0.4 0.2 - 1.2 mg/dL 10/30/2024 6:51 PM [facility] SGOT (AST) 134(H) 5 - 34 U/L 10/30/2024 6:51 PM [facility] Comment: Specimen is hemolyzed. In vitro hemolysis could affect results. Clinical correlation advised. SGPT (ALT) 116(H) 0 - 55 U/L 10/30/2024 6:51 PM [facility] ALKALINE PHOSPHATASE 228(H) 40 - 150 U/L 10/30/2024 6:51 PM [facility] GFR, ESTIMATED >60 >=60 10/30/2024 6:51 PM TELEVISION HOST [facility] Comment: Creatinine Clearance is the preferred criteria for selecting drug dose adjustments in renally impaired patients. The GFR is provided as additional pertinent clinical information. GFR is reported in mL/min/1.73 sq m. Calculation based on the Chronic Kidney Disease Epidemiology Collaboration (CKD- EPI) equation refit without adjustment for race. GFR, EST. >60 >=60 025 6:51 PM TELEVISION HOST [facility] GFR, EST. NONAFRICAN >60 >=60 10/30/2024 6:51 PM TELEVISION HOST [facility] Blood Venipuncture / Unknown 10/30/2024 4:12 PM TELEVISION HOST 10/30/2024 6:21 PM TELEVISION HOST us Jesse Aguirre DO CHEMISTRY ORDERABLES Fi nal Result [facility] [address] [place] [address] * YU SCREENING BILATERAL DIGITAL W CAD W NATALIIA (05/08/2023 12:09 PM CDT) Anatomical Region Laterality Modality breast Bilateral Mammography 05/08/2023 1:03 PM CDT Narrative 05/09/2023 11:33 AM CDT - YU SCREENING BILATERAL DIGITAL W CAD W NATALIIA BILATERAL DIGITAL SCREENING MAMMOGRAM 3D/2D WITH CAD WITH MEDIOLATERAL OBLIQUE CRANIOCAUDAL: 05/08/2023 The study was acquired using digital technology and interpreted from soft copy. Current study was also evaluated with ICAD version 7.2. 2D digital mammographic views, as well as 3D digital tomosynthesis were performed in the CC and MLO projections. CLINICAL: Routine screening. Patient has no complaints. Patient reports 15-20 pound weight loss since last mammogram. No personal history of cancer. Maternal grandmother had breast cancer. COMPARISONS: Comparison is made to exams dated: 01/03/2021, 02/13/2022, [facility] BREAST TISSUE:The tissue of both breasts is predominantly fatty. FINDINGS: There are benign calcifications in both breasts. No significant masses, calcifications, or other findings are seen in either breast. There has been no significant interval change. IMPRESSION: BI-RAD 2 BENIGN There is no mammographic evidence of malignancy. A 1 year screening mammogram is recommended. A letter will be sent to the patient with these results. The patient will be entered into a reminder system with a target due date of 1 year for her next screening exam. Electronically signed by: Claudia guevara/penrad:05/08/2023 19:31:07 Emissions Inspector(s): RT Tuan(R)(M), [facility] letter sent: Normal Exam Reading location: [facility] BI-RADS: 2 Benign Procedure Note Claudia Acosta MD - 05/09/2023 - YU SCREENING BILATERAL DIGITAL W CAD W NATALIIA BILATERAL DIGITAL SCREENING MAMMOGRAM 3D/2D WITH CAD WITH MEDIOLATERAL OBLIQUE CRANIOCAUDAL: 05/08/2023 The study was acquired using digital technology and interpreted from soft copy. Current study was also evaluated with ICAD version 7.2. 2D digital mammographic views, as well as 3D digital tomosynthesis were performed in the CC and MLO projections. CLINICAL: Routine screening. Patient has no complaints. Patient reports 15-20 pound weight loss since last mammogram. No personal history of cancer. Maternal grandmother had breast cancer. COMPARISONS: Comparison is made to exams dated: 01/03/2021, 02/13/2022, and 02/06/2018 [facility]. BREAST TISSUE:The tissue of both breasts is predominantly fatty. FINDINGS: There are benign calcifications in both breasts. No significant masses, calcifications, or other findings are seen in either breast. There has been no significant interval change. IMPRESSION: BI-RAD 2 BENIGN There is no mammographic evidence of malignancy. A 1 year screening mammogram is recommended. A letter will be sent to the patient with these results. The patient will be entered into a reminder system with a target due date of 1 year for her next screening exam. Electronically signed by: Claudia guevara/declan:05/08/2023 19:31:07 Emissions Inspector(s): Hailee Ryan, RT(R)(M), [facility] letter sent: Normal Exam Reading location: [place] BI-RADS: 2 Benign us Marco Woods MD IMG MAMMO ORDERABLES Final Re sult * HEPATITIS PANEL ACUTE (AHP) (02/23/2023 12:00 AM CDT) 02/23/2023 us Provider Scan HEMATOLOGY ORDERABLES Final Resu lt SCAN from Last 3 Months or Most Recently Relevant to Health Maintenance Insurance MEDICAID [place] MEDICARE C [employer] Advance Directives Documents on File Type Date Recorded Patient Volunteer Services Supervisor Expl anation Power of Independent Trader for Health Care 11/27/2022 5:01 PM POA-HC, 11/26/2022 POLST/POST/NE DNR 11/27/2022 5:01 PM POLST, 11/26/2022 Other Advance Directive 04/12/2022 3:59 PM results * Full Code (Latest Code Status on File) Date Activated Date Inactivated Comments 06/25/2024 9:31 PM 07/13/2024 10:00 PM CPR-Full Keith atment: FULL ARREST: Attempt Resuscitation/CPR wit intubation and mechanical ventilation. PRE-ARREST: Use entire range of life support measures to stabilize the patient. * No CPR-Selective Treatment Date Activated Date Inactivated Comments 06/08/2023 8:50 PM 06/11/2023 11:30 AM No CPR - Se lective Treatment: FULL ARREST: Do Not Attempt Resuscitation. PRE-ARREST: DO NOT USE INTUBATION OR MECHANICAL VENTILATION, but may use basic medical treatment like CPAP or BiPAP, antibiotics, IV fluids, oxygen, etc. Avoid care in ICU setting. Question Answer Comments Physician documentation made in notes? Yes * Full Code Date Activated Date Inactivated Comments 06/08/2023 5:37 PM 06/08/2023 8:49 PM CPR-Full Keith atment: FULL ARREST: Attempt Resuscitation/CPR wit intubation and mechanical ventilation. PRE-ARREST: Use entire range of life support measures to stabilize the patient. * Full Code Date Activated Date Inactivated Comments 06/01/2023 1:24 PM 06/03/2023 4:05 PM CPR-Full Keith atment: FULL ARREST: Attempt Resuscitation/CPR wit intubation and mechanical ventilation. PRE-ARREST: Use entire range of life support measures to stabilize the patient. * Full Code Date Activated Date Inactivated Comments 11/24/2022 2:16 AM 11/26/2022 5:49 PM CPR-Full Treat ment: FULL ARREST: Attempt Resuscitation/CPR wit intubation and mechanical ventilation. PRE-ARREST: Use entire range of life support measures to stabilize the patient. Care Teams Detective Homicide Squad Relationship Specialty Start Date End Date Marco Woods MD #[address] [address] PCP - General Family Medicine 11/22/17 Kirsten Niño MD #2 [facility] [address] [place] [address] Consulting Physician Endocrinology 07/17/22 Chin Burrows MD #2 [facility] [address] [place] [address] Consulting Physician General Surgery 11/22/22 Michelle Mendes APRN, PLAYGROUND ATTENDANT #2 [facility] [address] [place] [address] Nurse Practitioner Advanced Practice Nurse 08/14/22 Chantelle Nix APRN, PLAYGROUND ATTENDANT [address] [place] [address] Nurse Practitioner Advanced Practice Nurse 02/19/24
--- OUTSIDE RECORDS SUMMARY | 2024-12-11 00:44 | XMS_ITS | Encounter Summary ---
Author Organization [facility] Address [address] [place] [address] Phone Care Team Providers Care Sawmilling Operator Name Role Phone Marco Woods MD Primary Care Provider [phone] Kirsten Niño MD Unavailable Chin Burrows MD Unavailable Michelle Mendes APRN, LOGISTICS AND PLANNING MANAGER Unavailable [phone] Chantelle Nix INTRANET SUPPORT, LOGISTICS AND PLANNING MANAGER Unavailable Reason for Visit * Reason Comments Medication Refill Encounter Details Date Type Department Care Team (Late st Contact Info) Description 09/25/2023 [facility] [address] [place] [address] Kirsten Niño MD #[address] [address] Medication Refill Social History Tobacco Use Types [...] Sex Assigned at Female 11/22/2023 11:58 AM BOWLING OR SKATING FRONT DESK CLERK Legal Sex Female 11:34 PM CDT Gender Identity Female 11/22/2023 11:58 AM BOWLING OR SKATING FRONT DESK CLERK Sexual Orientation Not on file Occupation Industry Job Start Date Job End Date disabled Not on file Not on file Not on file documented as of this encounter Miscellaneous Notes * Telephone Encounter - Denise Doe, RN - 09/26/2023 8:46 AM BOWLING OR SKATING FRONT DESK CLERK Requested Prescriptions Pending Prescriptions Disp Refills ??? Prolia 60 MG/ML Solution Prefilled Syringe [Pharmacy Med Name: PROLIA 60MG/ML CHARLEEN FOR INJ, 1ML]1 mL 0 Sig: INJECT 1ML SUBCUTANEOUS EVERY 6 MONTHS Next appt: 09/27/2024 ING OR SKATING FRONT DESK CLERK documented in this encounter Plan of Treatment Upcoming Encounters Date Type Department Care Team (Late st Contact Info) Description 12/15/2024 3:30 PM BOWLING OR SKATING FRONT DESK CLERK Office Visit [facility] - Pulmonology & Sleep Medicine - [place] [address] [place] [address] Michelle Mendes APRN, LOGISTICS AND PLANNING MANAGER #2 [facility] [address] [place] [address] 01/30/2025 9:00 AM CDT Office Visit [facility] - Endocrinology - [place] [address] [place] [address] Kirsten Niño MD #2 [facility] [address] [place] [address] documented as of this encounter Visit Diagnoses Not on filedocumented in this encounter Additional Health Concerns Infection Onset Date Last Indicated Resolved Time COVID - 19 11/01/2023 11/01/2023 11/11/2023 12:1 6 AM BOWLING OR SKATING FRONT DESK CLERK COVID - 19 06/25/2024 06/25/2024 06/25/2024 6:36 PM CDT Assessment Noted Time PHQ-9 Depression Total Score: 0 11/22/19 18 10:00 AM BOWLING OR SKATING FRONT DESK CLERK documented as of this encounter Care Teams Sawmilling Operator Relationship Specialty Start Date End Date Marco Woods MD #2 [facility] [address] [place] [address] PCP - General Family Medicine 11/22/17 Kirsten Niño MD #2 [facility] [address] [place] [address] Consulting Physician Endocrinology 07/17/22 Chin Burrows MD #2 [facility] [address] [place] [address] Consulting Physician General Surgery 11/22/22 Michelle Mendes APRN, LOGISTICS AND PLANNING MANAGER #2 [facility] [address] [place] [address] Nurse Practitioner Advanced Practice Nurse 08/14/22 Chantelle Nix APRN, LOGISTICS AND PLANNING MANAGER [address] [place] [address] Nurse Practitioner Advanced Practice Nurse 02/19/24 documented as of this encounter
--- OUTSIDE RECORDS SUMMARY | 2024-12-11 00:45 | XMS_ITS | Encounter Summary ---
Author Organization [facility] Address [address] [place] [address] Phone Care Team Providers Care Legal Operations Manager Name Role Phone Marco Woods MD Primary Care Provider Kirsten Niño MD Unavailable Chin Burrows MD Unavailable Kelsea Root RN Unavailable Unavailable Michelle Mendes APRN, ELECTRIC METER INSTALLER HELPER Unavailable [phone] Chantelle Nix APRN, ELECTRIC METER INSTALLER HELPER Unavailable Reason for Visit * Reason Comments Medication Refill Encounter Details Date Type Department Care Team (Late st Contact Info) Description [facility] [address] [place] [address] Marco Woods MD #2 [place] [address] Medication Refill Social History Tobacco Use Types Packs/Day Years Used Date Smoking Tobacco: Never Smokeless Tobacco: Former Alcohol Use Standard Drinks/Week Comments Not Currently 0 (1 standard drink = 0.6 oz pur e alcohol) Sexually Active Control Partners Comments Not Currently Comments No Sex and Gender Information Value Date Recorded Sex Assigned at Female 11/22/2023 11:58 AM CORRECTIONAL FOOD SERVICE SUPERVISOR Legal Sex Female 11:34 PM CDT Gender Identity Female 11/22/2023 11:58 AM CORRECTIONAL FOOD SERVICE SUPERVISOR Sexual Orientation Not on file Occupation Industry Job Start Date Job End Date disabled Not on file Not on file Not on file documented as of this encounter Miscellaneous Notes * Telephone Encounter - Marco Woods MD - 06/15/2021 11:20 AM CDT Prescription approved. Please call in * Telephone Encounter - Amada Orozco RN - 06/15/2021 11:19 AM CDT Medication failed the protocol, provider to review and approve the medication order if appropriate. Requested Prescriptions Pending Prescriptions Disp Refills cyclobenzaprine (FLEXERIL) 5 MG Tablet [Pharmacy Med Name: CYCLOBENZAPRINE 5MG TABLETS] 90 Tablet 1 Sig: TAKE 1 TABLET BY MOUTH THREE TIMES DAILY NEEDED FOR MUSCLE SPASMS Not Delegated - Muscle Relaxants Protocol Failed - 06/15/2021 7:03 AM Failed - This refill cannot be delegated Passed - Visit with relevant provider in past 12 months or upcoming 90 days Recent Visits Date Type Provider Dept 03/25/21 Office Visit Marco Woods MD [facility] 02/22/21 Office Visit Marco Woods MD [facility] 02/07/21 Office Visit Marco Woods MD [facility] 12/21/20 Telemedicine Mirtha Steiner APN, [facility] 11/09/20 Office Visit Marco Woods MD [facility] 09/06/20 [facility] Showing recent visits within past 365 days and meeting all other requirements Future Appointments Date Type Provider Dept 06/28/21 Appointment [facility] MD [facility] Showing future appointments within next 90 days and meeting all other requirements documented in this encounter Plan of Treatment Upcoming Encounters Date Type Department Care Team (Late st Contact Info) Description 12/15/2024 3:30 PM CORRECTIONAL FOOD SERVICE SUPERVISOR Office Visit [facility] - Pulmonology & Sleep Medicine - [place] [address] [place] [address] Michelle Mendes APRN, ELECTRIC METER INSTALLER HELPER #2 [facility] [address] [place] [address] 01/30/2025 9:00 AM CDT Office [facility] - Endocrinology - [place] [address] [place] [address] Kirsten Niño MD #2 [facility] [address] [place] [address] documented as of this encounter Visit Diagnoses Not on filedocumented in this encounter Additional Health Concerns Infection Onset Date Last Indicated Resolved Time COVID - 19 06/29/2022 06/29/2022 07/09/2022 12:1 6 AM CDT COVID - 19 11/20/2022 11/20/2022 11/24/2022 8:51 AM CORRECTIONAL FOOD SERVICE SUPERVISOR COVID - 19 12/31/2022 12/31/2022 01/10/2023 12:1 8 AM CDT COVID - 19 Confirmed 12/31/2022 12/31/2022 023 12:17 AM CDT COVID - 19 06/01/2023 06/01/2023 06/01/2023 8:1 6 AM CDT COVID - 19 11/01/2023 11/01/2023 11/11/2023 12:1 6 AM CORRECTIONAL FOOD SERVICE SUPERVISOR COVID - 19 06/25/2024 06/25/2024 06/25/2024 6:36 PM CDT Assessment Noted Time PHQ-9 Depression Total Score: 0 11/22/19 18 10:00 AM CORRECTIONAL FOOD SERVICE SUPERVISOR documented as of this encounter Care Teams Legal Operations Manager Relationship Specialty Start Date End Date Marco Woods MD #2 [facility] [address] [place] [address] PCP - General Family Medicine 11/22/17 Kirsten Niño MD #[address] [address] Consulting Physician Endocrinology 07/17/22 Chin Burrows MD [facility] [address] Consulting Physician General Surgery 11/22/22 Kelsea Root RN [place] [employer] Computer Consultant 06/15/23 08/26/23 Michelle Mendes APRN, ELECTRIC METER INSTALLER HELPER #2 [facility] [address] [place] [address] Nurse Practitioner Advanced Practice Nurse 08/14/22 Chantelle Nix APRN, ELECTRIC METER INSTALLER HELPER #[address] [place] [address] Nurse Practitioner Advanced Practice Nurse 02/19/24 documented as of this encounter
--- OUTSIDE RECORDS SUMMARY | 2024-12-11 00:45 | XMS_ITS | Clinical Summary ---
Author Organization [facility] Address [address] [place] [address] Care Team Providers Care Scenic Artist Name Role Phone Nikhil Robles MD Primary Care Provider [phone] Allergies Active Allergy Reactions Criticality Noted Date Comments Alendronate Rash Medium 12/31/2015 Fever, chills, achy Alendronic Acid Nausea & Vomiting,Fatigue Medium 09/18/2023 Codeine Codeine Sulfate Diarrhea,Nausea Only,Vomiting Low Ropinirole Anxiety Medium 09/18/2023 Tolmetin Other (See comments) Low No reaction but not suppose to have because of ulcers Medications levothyroxine (SYNTHROID) 200 mcg tablet Take 1 tablet (200 mcg total) by mouth daily 7 Active montelukast (SINGULAIR) 10 mg tablet 8 Active linaclotide (LINZESS) 145 mcg capsule Take 1 capsule (145 mcg total) by mouth daily 7 Active escitalopram (LEXAPRO) 20 mg tablet 8 Active DEXILANT 60 mg capsule Take 1 capsule (60 mg total) by mouth daily Takes in the morning. 6 7 Active traMADol (ULTRAM) 50 mg tablet Take 1 tablet (50 mg total) by mouth every 6 (six) hours as needed for pain. 43 tablet 8 Active acetaminophen (TYLENOL) 500 mg tablet Take 2 tablets (1,000 mg total) by mouth every 4 (four) hours as needed Active amLODIPine (NORVASC) 5 mg tablet Take 1 tablet (5 mg total) by mouth daily 3 Active atorvastatin (LIPITOR) 20 mg tablet Take 1 tablet (20 mg total) by mouth daily Taken in the afternoon at 1400 3 Active Prolia 60 mg/mL syringe INJECT 1ML SUBCUTANEOUS EVERY 6 MONTHS 3 Active fluticasone propionate (FLONASE) 50 mcg/actuation nasal spray Administer 2 sprays into each nostril 2 (two) times a day 3 Active Trelegy Ellipta 100-62.5-25 mcg inhaler 1 puff daily 3 Active cycloSPORINE (RESTASIS) 0.05 % ophthalmic emulsion Administer 1 drop into both eyes 2 (two) times a day Active zolpidem (AMBIEN) 5 mg tabletIndicatio ns:Sleep-Onset Insomnia Take 1 tablet (5 mg total) by mouth nightly as needed for sleep Active aspirin 81 mg chewable tablet Take 1 tablet (81 mg total) by mouth daily 30 tablet 3 Active Active Problems Problem Noted Date Diagnosed Date Chest pain, unspecified type 09/18/2023 Vocal fold paresis, 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 Continue antibiotics Start Nystatin swish and spit after meals Three times daily Continue to work with Dentist regarding teeth Follow up 3 months to recheck left vocal fold paresis Voice rest when possible Oral candidiasis 03/14/2023 Assessment & Plan (03/14/2023 1:46 PM CDT): Prescription medications sent to Pharmacy today: Start Nystatin swish and spit after meals Three times daily Continue to work with Dentist regarding teeth Continue to rinse mouth after using inhaler Surgical History Surgery Date Site/Laterality Comments OTHER SURGICAL HISTORY nervous system disorder OTHER SURGICAL HISTORY stomach surgery 2006 OTHER SURGICAL HISTORY gallbladder surgery 1982 [facility] ARTHROPLASTY 2012 Left Knee replacement [facility] ARTHROPLASTY 2012 Right Knee replacement [facility] ARTHROPLAST[facility] Bilateral knee replacement OTHER SURGICAL HISTORY Stomach surgery for ulcers Medical History Medical History Date Comments Depression Depression Osteoarthritis Osteoarthritis Chronic obstructive pulmonary disease (HCC) COPD Anemia Anemia Hx Other Medical shoulder pain Adiposity Obesity Hx Other Medical thrombocytosis Hx Other Medical Bipolar Arthritis Arthritis Hx Other Medical Hpothyroidism Family History Medical History Relation Name Comments Coronary artery disease Other 1 Fami ly history of Coronary artery disease; Diabetes Other 2 Family history of Diabetes mellitus; Hypertension Other 3 Family history of Hypertension; Relation Name Status Comments Other 1 Other 2 Other 3 Social History Tobacco Use Types Packs/Day Years Used Date Smoking Tobacco: Never Smokeless Tobacco: Never Alcohol Use Standard Drinks/Week Comments No 0 (1 standard drink = 0.6 oz pur e alcohol) AUDIT-C Answer Date Recorded Q1: How often do you have a drink containing alcohol? Never 09/18/2023 Q2: How many drinks containi ng alcohol do you have on a typical day when you are drinking? Patient does not drink Q3: How often do you have si x or more drinks on one occasion? Never 09/18/2023 Personal Safety Answer Date Recorded Have you ever been in or are you currently in a harmful physical or emotional relationship or is someone making you feel afraid or unsafe? Denies 09/18/2023 Comments Unknown Sex and Gender Information Value Date Recorded Sex Assigned at Not on file Legal Sex Female 6:03 PM FINANCIAL PROFESSIONAL Gender Identity Not on file Sexual Orientation Not on file Obstetrics History Last Filed Vital Signs Vital Sign Reading Time Taken Comments Blood Pressure 170/75 09/19/2023 10:51 AM FINANCIAL PROFESSIONAL Pulse 114 09/19/2023 2:00 PM FINANCIAL PROFESSIONAL Temperature 36.6 C (97.8 F) 09/19/2023 10:51 AM FINANCIAL PROFESSIONAL Respiratory Rate 18 09/19/2023 10:51 AM FINANCIAL PROFESSIONAL Oxygen Saturation 98% 09/19/2023 10:51 AM FINANCIAL PROFESSIONAL Inhaled Oxygen Concentration - - Weight 80.3 kg (177 lb) 09/18/2023 3:16 PM FINANCIAL PROFESSIONAL Height 157.5 cm (5' 2 ) 09/18/2023 3:16 PM FINANCIAL PROFESSIONAL Body Mass Index 32.37 09/18/2023 3:16 PM FINANCIAL PROFESSIONAL Plan of Treatment Health Maintenance Due Date Last Done Comments Breast Cancer Screening-Mammogram 1955 Colon Cancer Screening-Colonoscopy 1955 Depression Screening 1955 Hepatitis C Screening 1955 Osteoporosis Screening-Bone Density Scan 1955 Well Visit 65+ 2020 Zoster Vaccine (2 of 2) 06/04/2023 04/09/2023 Covid-19 Vaccine (3 - 2023-2 5 season) 2024 04/23/2021, 03/26/2021 Influenza Vaccine (#1) 2024 , 06/09/2021, 06/28/2020, Additional history exists Fall Risk Assessment 09/19/2024 09/19/2023 DTaP/Tdap/Td Vaccine (2 - Td or Tdap) 07/16/2031 07/16/2021 Hepatitis B Screening Completed 03/04/2015 Pneumococcal vaccine 65+ Completed 022, 06/19/2021, 08/30/2017, Additional history exists Insurance MEDICARE SOLUTIONS [facility] Address: [address] [address] [facility] MDCR HMO REF [facility] MEDICARE Address: [address] [address] [place] [address] MEDICARE SOLUTIONS Advance Directives For more information, please contact: [phone] * Full Code (Latest Code Status on File) Date Activated Date Inactivated Comments 09/18/2023 2:35 PM 09/19/2023 6:39 PM * Full Code Date Activated Date Inactivated Comments 09/18/2023 12:47 PM 09/18/2023 2:35 PM Care Teams Scenic Artist Relationship Specialty Start Date End Date Nikhil Robles MD [address] [place] [address] PCP - General Emergency Medicine 03/12/24
--- OUTSIDE RECORDS SUMMARY | 2024-12-11 00:45 | XMS_ITS | Encounter Summary ---
Author Organization [facility] Address [address] [place] [address] Phone Care Team Providers Care Customer Training Specialist Name Role Phone Marco Woods MD Primary Care Provider Kirsten Niño MD Unavailable Chin Burrows MD Unavailable Kelsea Root RN Unavailable Unavailable Michelle Mendes APRN, ABORIGINAL EDUCATION TEACHER Unavailable Chantelle Nix APRN, ABORIGINAL EDUCATION TEACHER Unavailable Reason for Visit * Reason Comments Medication Refill Encounter Details Date Type Department Care Team (Late st Contact Info) Description 10/17/2022 Refill [facility] - Family Medicine [facility] [address] [place] [phone] Marco Woods MD [id number] [address] Medication Refill Social History Tobacco Use Types Packs/Day Years Used Date Smoking Tobacco: Never Smokeless Tobacco: Never Alcohol Use Standard Drinks/Week Comments Not Currently 0 (1 standard drink = 0.6 oz pur e alcohol) Sexually Active Control Partners Comments Not Currently Comments No Sex and Gender Information Value Date Recorded Sex Assigned at Female 11/22/2023 11:58 AM GEOMORPHOLOGY TEACHER Legal Sex Female 11:34 PM CDT Gender Identity Female 11/22/2023 11:58 AM GEOMORPHOLOGY TEACHER Sexual Orientation Not on file Occupation Industry Job Start Date Job End Date disabled Not on file Not on file Not on file COVID-19 Exposure Response Date Recorded In the last 10 days, have yo u been in contact with someone who was confirmed or suspected to have Coronavirus/COVID-19? No / Unsure 10/11/2022 9:23 AM GEOMORPHOLOGY TEACHER documented as of this encounter Miscellaneous Notes * Telephone Encounter - Maria Luz Sierra RN - 10/18/2022 8:37 AM CST duplicate ORPHOLOGY TEACHER documented in this encounter Plan of Treatment Upcoming Encounters Date Type Department Care Team (Late st Contact Info) Description 12/15/2024 3:30 PM GEOMORPHOLOGY TEACHER [facility] - Pulmonology & Sleep Medicine [facility] [address] [place] [address] Michelle Mendes APRN, DREW #2 [facility] [address] [place] [address] 01/30/2025 9:00 AM CDT Office Visit [facility] - Endocrinology - [place] [address] [place] [address] Kirsten Niño MD #2 [facility] [address] [place] [address] documented as of this encounter Visit Diagnoses Not on filedocumented in this encounter Additional Health Concerns Infection Onset Date Last Indicated Resolved Time COVID - 19 11/20/2022 11/20/2022 11/24/2022 8:51 AM GEOMORPHOLOGY TEACHER COVID - 19 12/31/2022 12/31/2022 01/10/2023 12:1 8 AM CDT COVID - 19 Confirmed 12/31/2022 12/31/2022 023 12:17 AM CDT COVID - 19 06/01/2023 06/01/2023 06/01/2023 8:16 AM CDT COVID - 11/01/2023 11/01/2023 11/11/2023 12:1 6 AM GEOMORPHOLOGY TEACHER COVID - 06/25/2024 06/25/2024 06/25/2024 6:36 PM CDT Assessment Noted Time PHQ-9 Depression Total Score: 0 11/22/19 10:00 AM GEOMORPHOLOGY TEACHER documented as of this encounter Care Teams Customer Training Specialist Relationship Specialty Start Date End Date Marco Woods MD #2 [facility] [address] [place] [address] PCP - General Family Medicine 11/22/17 Kirsten Niño MD #2 [facility] [address] [place] [address] Consulting Physician Endocrinology 07/17/22 Chin Burrows MD #2 [facility] [address] [place] [address] Consulting Physician General Surgery 11/22/22 Kelsea Root, JUWAN [place] Chemical Engraver 06/15/23 08/26/23 Michelle Mendes APRN, ABORIGINAL EDUCATION TEACHER #2 [facility] [address] [place] [address] Nurse Practitioner Advanced Practice Nurse 08/14/22 Chantelle Nix APRN, ABORIGINAL EDUCATION TEACHER #2 [place] [address] Nurse Practitioner Advanced Practice Nurse 02/19/24 documented as of this encounter
--- OUTSIDE RECORDS SUMMARY | 2024-12-11 00:45 | XMS_ITS | Referral Summary ---
Author Organization [facility] Office [address] Address [address] [place] [address] Care Team Providers Care Tubing Oiler Name Role Phone Nikhil Robles MD Primary Care Provider [phone] Allergies Active Allergy Reactions Criticality Noted Date [...] Nasal saline spray (Simply saline, Little Remedies, [place], [place]) 2 second sprays or 2 squeezes into [...] Continue to rinse mouth after using inhaler Social History Tobacco Use Types Packs/Day Years [...] on file Legal Sex Female 6:03 PM VAULT MECHANIC Gender Identity Not on file Sexual Orientation Not on file Last Filed Vital Signs Vital Sign Reading Time Taken Comments Blood Pressure 170/75 09/19/2023 10:51 AM VAULT MECHANIC Pulse 114 09/19/2023 2:00 PM VAULT MECHANIC Temperature 36.6 C (97.8 F) 09/19/2023 10:51 AM VAULT MECHANIC Respiratory Rate 18 09/19/2023 10:51 AM VAULT MECHANIC Oxygen Saturation 98% 09/19/2023 10:51 AM VAULT MECHANIC Inhaled Oxygen Concentration - - Weight 80.3 kg (177 lb) 09/18/2023 3:16 PM VAULT MECHANIC Height 157.5 cm (5' 2 ) 09/18/2023 3:16 PM VAULT MECHANIC Body Mass Index 32.37 09/18/2023 3:16 PM VAULT MECHANIC Plan of Treatment Not on file Insurance [facility] Address: [facility] [address] [place] [address] [facility] MDCR HMO [facility]IC[facility] Address: [address] [address] [place] [address] [facility] Address: [address] [address] [place] [address] Advance Directives For more information, please contact: [phone] * Full Code (Latest Code Status on File) Date Activated Date Inactivated Comments 09/18/2023 2:35 PM 09/19/2023 6:39 PM * Full Code Date Activated Date Inactivated Comments 09/18/2023 12:47 PM 09/18/2023 2:35 PM Care Teams Tubing Oiler Relationship Specialty Start Date End Date Nikhil Robles MD [address] [place] [address] PCP - General Emergency Medicine 03/12/24
--- OUTSIDE RECORDS SUMMARY | 2024-12-11 00:45 | XMS_ITS | Encounter Summary ---
Author Organization [facility] Address [address] [place] [address] Phone Care Team Providers Care Certified Orthotist Name Role Phone Marco Woods MD Primary Care Provider [phone] Kirsten Niño MD Unavailable Chin Burrows MD Unavailable Michelle Mendes APRN, SPARK TESTER Unavailable Chantelle Nix FEED MANAGEMENT ADVISOR, SPARK TESTER Unavailable Reason for Visit * Reason Comments Medication Refill Encounter Details Date Type Department Care Team (Late st Contact Info) Description 03/18/2024 Refill [facility] - Family Medicine - [place] [address] [place] [phone] Marco Woods MD [address] [address] Medication Refill Social History Tobacco Use Types Packs/Day Years Used Date Smoking Tobacco: Never Smokeless Tobacco: Never Alcohol Use Standard Drinks/Week Comments Not Currently 0 (1 standard drink = 0.6 oz pur e alcohol) [facility] Utilities Answer Date Recorded In the past 12 months has e electric, gas, oil, or water company threatened to shut off services in your home? Patient declined 11/28/2023 Social Connection and Isolation Panel [NHANES] A nswer Date Recorded In a typical week, how many times do you talk on the phone with family, friends, or neighbors? Patient declined 11/28/2023 How often do you get togethe r with friends or relatives? Patient declined 11/28/2023 How often do you attend zoroastrianism or quaker serv ices? Patient declined 11/28/2023 Do you belong to any clubs o r organizations such as zoroastrianism groups, unions, fraternal or athletic groups, or school groups? Patient declined 11/28/2023 How often do you attend meet ings of the clubs or organizations you belong to? Patient declined 11/28/2023 Are you , , di vorced, , never , or living with a partner? Patient declined 11/28/2023 AUDIT-C Answer Date Recorded Q1: How often do you have a drink containing alc ohol? Patient declined 11/28/2023 Q2: How many drinks containi ng alcohol do you have on a typical day when you are drinking? Patient declined 11/28/2023 Q3: How often do you have si x or more drinks on one occasion? Patient declined 11/28/2023 Overall Financial Resource Strain (CARDIA) Answe r Date Recorded How hard is it for you to pa y for the very basics like food, housing, medical care, and heating? Patient declined 11/28/2023 PHQ-2 Answer Date Recorded Total Score - Questions 1-9 18 10/24 [facility] - Occupational Stress Questionnaire Answer Date Recorded Do you feel stress - tense, restless, nervous, or anxious, or unable to sleep at night because your mind is troubled all the time - these days? Patient declined 11/28/2023 Exercise Vital Sign Answer Date Recorde d On average, how many days pe r week do you engage in moderate to strenuous exercise (like a brisk walk)? Patient declined On average, how many minutes do you engage in exercise at this level? Patient declined 11/28/2023 Hunger Vital Sign Answer Date Recorded Within the past 12 months, y ou worried that your food would run out before you got the money to buy more. Patient declined Within the past 12 months, t he food you bought just didn't last and you didn't have money to get more. Patient declined 04/2024 PRAPARE - Transportation Answer Date Re corded In the past 12 months, has l ack of transportation kept you from medical appointments or from getting medications? Patient declined 11/28/2023 In the past 12 months, has l ack of transportation kept you from meetings, work, or from getting things needed for daily living? Patient declined 11/28/2023 Housing Stability Vital Sign [...] place to sleep or slept in a penitentiary (including now)? Patient declined 11/28/2023 Education Answer Date Recorded What is the highest level of school you have completed or the highest degree you have received? 12th grade 04/03/2023 Sexually Active Control Partners Comments Not Currently Comments No Sex and Gender Information Value Date Recorded Sex Assigned at Female 11/22/2023 11:58 AM SKI TOW OPERATOR Legal Sex Female 11:34 PM CDT Gender Identity Female 11/22/2023 11:58 AM SKI TOW OPERATOR Sexual Orientation Not on file Occupation Industry Job Start Date Job End Date disabled Not on file Not on file Not on file documented as of this encounter Miscellaneous Notes * Telephone Encounter - Amada Orozco RN - 03/19/2024 9:41 AM CDT Last fill 02/21/24 - Maria Antonia Galeana MD Medication failed the protocol, provider to review and approve the medication order if appropriate. Requested Prescriptions Pending Prescriptions Disp Refills Dexlansoprazole 60 MG CAPSULE DELAYED RELEASE [Pharmacy Med Name: Dexlansoprazole 60MG CPDR] 28 Capsule 2 Sig: TAKE 1 CAPSULE BY MOUTH DAILY Proton Pump Inhibitors Protocol Failed - 03/18/2024 1:12 PM Failed - Active on medication list Passed - Visit with relevant provider in past 12 months or upcoming 90 days Recent Visits Date Type Provider Dept 03/12/24 Office Visit Marco Woods MD [facility] [place] 02/21/24 Office Visit Amor Pitt MD [facility] [place] 02/12/24 Office Visit Rebecca Liu APRN, DREW [facility] [place] 12/05/23 Office Visit Marco Woods MD [facility] [place] 11/20/23 Office Visit Ronald Shaffer APRN, DREW [facility] [place] 10/10/23 Office Visit Rebecca Liu APRN, DREW [facility] [place] 08/24/23 Office Visit Ranjit Linder MD [facility] [place] 08/02/23 Office Visit Marco Woods MD [facility] [place] 05/01/23 Office Visit Marco Woods MD [facility] [place] 04/18/23 Office Visit Marco [facility] MD [facility] Showing recent visits within past 365 days and meeting all other requirements Future Appointments Date Type Provider Dept 04/09/24 Appointment Marco Woods MD [facility] [place] Showing future appointments within next 90 days and meeting all other requirements * Telephone Encounter - Amada Orozco RN - 03/19/2024 9:39 AM CDT Images from the original note were not included. Dexlansoprazole Dispensed Days Supply Quantity Provider Pharmacy DEXLANSOPRAZOLE 60 MG CPDR 02/21/2024 28 28 Capsule Maria Antonia Galeana MD [facility] - [facility]... DEXLANSOPRAZOLE 60 MG CPDR 01/29/2024 28 28 Capsule Maria Antonia Galeana MD [facility] - [facility] documented in this encounter Plan of Treatment Upcoming Encounters Date Type Department Care Team (Late st Contact Info) Description 12/15/2024 3:30 PM SKI TOW OPERATOR [facility] - [place] [address] [place] [address] Michelle Mendes APRN, SPARK TESTER [address] [address] 01/30/2025 9:00 AM CDT [facility] - Endocrinology - [place] [address] [place] [address] Kirsten Niño MD #[address] [address] documented as of this encounter Visit Diagnoses Not on filedocumented in this encounter Additional Health Concerns Infection Onset Date Last Indicated Resolved Time COVID - 19 06/25/2024 06/25/2024 06/25/2024 6:36 PM CDT Assessment Noted Time PHQ-9 Depression Total Score: 18 024 10:00 AM SKI TOW OPERATOR documented as of this encounter Care Teams Certified Orthotist Relationship Specialty Start Date End Date Marco Woods MD #[address] [address] PCP - General Family Medicine 11/22/17 Kirsten Niño MD #[address] [address] Consulting Physician Endocrinology 07/17/22 Chin Burrows MD #[address] [address] Consulting Physician General Surgery 11/22/22 Michelle Mendes APRN, SPARK TESTER #2 [facility] [address] [place] [address] Nurse Practitioner Advanced Practice Nurse 08/14/22 Chantelle Nix APRN, SPARK TESTER #2 [place] [address] Nurse Practitioner Advanced Practice Nurse 02/19/24 documented as of this encounter
--- OUTSIDE RECORDS SUMMARY | 2024-12-11 00:45 | XMS_ITS | Encounter Summary ---
Author Organization [facility] Address [address] [place] [address] Phone Care Team Providers Care Washing Machine Loader And Puller Name Role Phone Marco Woods MD Primary Care Provider [phone] Kirsten Niño MD Unavailable Chin Burrows MD Unavailable Michelle Mendes APRN, COMMERCIAL CREDIT LEAD Unavailable [phone] Chantelle Nix ITALIAN LECTURER, COMMERCIAL CREDIT LEAD Unavailable Reason for Visit * Reason Comments Medication Refill Encounter Details Date Type Department Care Team (Late st Contact Info) Description 01/03/2024 Refill [facility] - Family Medicine - [place] [address] [place] [phone] Marco Woods MD [id number] [address] Medication Refill Social History Tobacco Use Types [...] declined 11/28/2023 How often do you attend buddhist or congregation serv ices? Patient declined 11/28/2023 Do you belong to any clubs o r organizations such as buddhist groups, unions, fraternal or athletic groups, or [...] Total Score - Questions 1-9 18 10/24 [facility] Occupat ional Health - Occupational Stress [...] place to sleep or slept in a fci (including now)? Patient declined 11/28/2023 Education Answer Date Recorded What is the highest level of school you have completed or the highest degree you have received? 12th grade 04/03/2023 Sexually Active Control Partners Comments Not Currently Comments No Sex and Gender Information Value Date Recorded Sex Assigned at Female 11/22/2023 11:58 AM CURED MEAT PACKING SUPERVISOR Legal Sex Female 11:34 PM CDT Gender Identity Female 11/22/2023 11:58 AM CURED MEAT PACKING SUPERVISOR Sexual Orientation Not on file Occupation Industry Job Start Date Job End Date disabled Not on file Not on file Not on file documented as of this encounter Miscellaneous Notes * Telephone Encounter - Lila Chaparro RN - 01/03/2024 11:13 AM CDT Medication(s) refilled and signed per [facility] Chronic Medication Refill Standing Order for Pediatricand Adult Patients. Requested Prescriptions Pending Prescriptions Disp Refills atorvastatin (LIPITOR) 20 MG Tablet [Pharmacy Med Name: ATORVASTATIN 20MG TABLETS] 90 Tablet 2 Sig: Take 1 Tablet by mouth daily. Hmg CoA Reductase Inhibitors Protocol Passed - 01/03/2024 10:24 AM Passed - Visit with relevant provider in past 12 months or upcoming 90 days Recent Visits Date Type Provider Dept 12/05/23 Office Visit Marco Woods MD [facility] [place] 11/20/23 Office Visit Ronald Shaffer APRN, COMMERCIAL CREDIT LEAD [facility] 10/10/23 Office Visit Rebecca Liu APRN, COMMERCIAL CREDIT LEAD [facility] [place] 08/24/23 Office Visit Ranjit Linder MD [facility] 08/02/23 Office Visit Marco Woods MD [facility] 05/01/23 Office Visit Marco Woods MD [facility] 04/18/23 Office Visit Marco Woods MD [facility] 04/03/23 Office Visit Marco Woods MD [facility] 03/12/23 Office Visit Marco Woods MD [facility] 03/05/23 Office Visit Mirtha Steiner APRN, COMMERCIAL CREDIT LEAD [facility] [place] Showing recent visits within past 365 days and meeting all other requirements Future Appointments Date Type Provider Dept 03/12/24 Appointment Marco Woods MD [facility] Showing future appointments within next 90 days and meeting all other requirements Passed - Lipid panel in past 12 months LDL Date Value Ref Range Status 07/26/2023 84 <130 mg/dL Final 02/23/2023 147 (A) 0 - 130 mg/dL Final 02/23/2023 147 (A) 0 - 130 mg/dL Final HDL CHOLESTEROL Date Value Ref Range Status 07/26/2023 85 >40 mg/dL Final CHOLESTEROL Date Value Ref Range Status 07/26/2023 202 (H) <200 mg/dL Final TRIGLYCERIDES Date Value Ref Range Status 07/26/2023 164 (H) <150 mg/dL Final VLDL Date Value Ref Range Status 07/26/2023 33 10 - 50 mg/dL Final CHOL/HDL RATIO Date Value Ref Range Status 07/26/2023 2.4 0.0 - 4.4 Final NON-HDL CHOLESTEROL Date Value Ref Range Status 07/26/2023 117 <130 mg/dL Final Passed - CMP in past 12 months SODIUM Date Value Ref Range Status 11/22/2023 140 136 - 145 mmol/L Final POTASSIUM Date Value Ref Range Status 11/22/2023 3.7 3.5 - 5.1 mmol/L Final CHLORIDE Date Value Ref Range Status 11/22/2023 105 98 - 107 mmol/L Final CO2, VENOUS Date Value Ref Range Status 11/22/2023 25 22 - 30 mmol/L Final ANION GAP Date Value Ref Range Status 11/22/2023 13.7 <18.0 mmol/L Final GLUCOSE Date Value Ref Range Status 11/22/2023 84 70 - 99 mg/dL Final BUN Date Value Ref Range Status 11/22/2023 15 10 - 20 mg/dL Final CREATININE, BLOOD Date Value Ref Range Status 11/22/2023 0.80 0.60 - 1.00 mg/dL Final BUN/CREATININE RATIO Date Value Ref Range Status 11/22/2023 19 12 - 20 ratio Final TOTAL PROTEIN Date Value Ref Range Status 11/22/2023 8.2 6.3 - 8.2 g/dL Final ALBUMIN Date Value Ref Range Status 11/22/2023 4.3 3.5 - 5.0 g/dL Final A/G RATIO Date Value Ref Range Status 11/22/2023 1.1 1.0 - 2.2 Final CALCIUM Date Value Ref Range Status 11/22/2023 10.2 8.7 - 10.5 mg/dL Final T BILI Date Value Ref Range Status 11/22/2023 0.4 0.2 - 1.2 mg/dL Final SGOT (AST) Date Value Ref Range Status 11/22/2023 44 (H) 5 - 34 U/L Final SGPT (ALT) Date Value Ref Range Status 11/22/2023 38 0 - 55 U/L Final ALKALINE PHOSPHATASE Date Value Ref Range Status 11/22/2023 183 (H) 40 - 150 U/L Final GFR, EST. NONAFRICAN Date Value Ref Range Status 11/22/2023 >60 >=60 Final GFR, EST. Date Value Ref Range Status 11/22/2023 >60 >=60 Final GFR, ESTIMATED Date Value Ref Range Status 11/22/2023 >60 >=60 Final Comment: Creatinine Clearance is the preferred criteria for selecting drug dose adjustments in renally impaired patients. The GFR is provided as additional pertinent clinical information. GFR is reported in mL/min/1.73 sq m. Calculation based on the Chronic Kidney Disease Epidemiology Collaboration (CKD- EPI) equation refitwithout adjustment for race. IS THE PATIENT REQUIRED TO BE FASTING? Date Value Ref Range Status 11/22/2023 No Final documented in this encounter Plan of Treatment Upcoming Encounters Date Type Department Care Team (Late st Contact Info) Description 12/15/2024 3:30 PM CURED MEAT PACKING SUPERVISOR Office Visit [facility] - Pulmonology & Sleep Medicine [facility] #2 [place] [address] Michelle Mendes APRN, COMMERCIAL CREDIT LEAD #2 [facility] [address] [place] [address] 01/30/2025 9:00 AM CDT Office Visit [facility] - Endocrinology - [place] [address] [place] [phone] Kirsten Niño MD #[address] [phone] documented as of this encounter Visit Diagnoses Not on filedocumented in this encounter Additional Health Concerns Infection Onset Date Last Indicated Resolved Time COVID - 19 06/25/2024 06/25/2024 06/25/2024 6:36 PM CDT Assessment Noted Time PHQ-9 Depression Total Score: 18 024 10:00 AM CURED MEAT PACKING SUPERVISOR documented as of this encounter Care Teams Washing Machine Loader And Puller Relationship Specialty Start Date End Date Marco Woods MD #2 [facility] [address] [place] [address] PCP - General Family Medicine 11/22/17 Kirsten Niño MD #[address] [address] Consulting Physician Endocrinology 07/17/22 Chin Burrows MD #[address] [address] Consulting Physician General Surgery 11/22/22 Michelle Mendes APRN, COMMERCIAL CREDIT LEAD #[address] [facility] [address] [address] Nurse Practitioner Advanced Practice Nurse 08/14/22 Chantelle Nix APRN, DREW [address] [place] [address] Nurse Practitioner Advanced Practice Nurse 02/19/24 documented as of this encounter
--- OUTSIDE RECORDS SUMMARY | 2024-12-11 00:45 | XMS_ITS | Encounter Summary ---
Author Organization [facility] Address [address] [place] [address] Phone Care Team Providers Care Vendor Manager Name Role Phone Marco Woods MD Primary Care Provider Kirsten Niño MD Unavailable Chin Burrows MD Unavailable Kelsea Root RN Unavailable Unavailable Michelle Mendes APRN, SPORTS PHYSIOTHERAPIST Unavailable [phone] Chantelle Nix APRN, SPORTS PHYSIOTHERAPIST Unavailable Reason for Visit * Reason Comments Medication Refill Encounter Details Date Type Department Care Team (Late st Contact Info) Description 12/12/2019 Refill [facility] [address] [place] [address] Priscilla Cid, ON CALL PHARMACY TECHNICIAN, SPORTS PHYSIOTHERAPIST #2 [place] [address] Medication Refill Social History Tobacco Use Types Packs/Day Years Used Date Smoking Tobacco: Never Smokeless Tobacco: Former Alcohol Use Standard Drinks/Week Comments Not Currently 0 (1 standard drink = 0.6 oz pur e alcohol) Sexually Active Control Partners Comments Not Currently Comments No Sex and Gender Information Value Date Recorded Sex Assigned at Female 11/22/2023 11:58 AM BEARING MACHINE OPERATOR Legal Sex Female 11:34 PM CDT Gender Identity Female 11/22/2023 11:58 AM BEARING MACHINE OPERATOR Sexual Orientation Not on file Occupation Industry Job Start Date Job End Date disabled Not on file Not on file Not on file documented as of this encounter Plan of Treatment Upcoming Encounters Date Type Department Care Team (Late st Contact Info) Description 12/15/2024 3:30 PM BEARING MACHINE OPERATOR [facility] - [facility]monology & [facility] Medicine - [place] [address] [place] [address] Michelle Mendes, MADDY, SPORTS PHYSIOTHERAPIST #2 [facility] [address] [place] [address] 01/30/2025 9:00 AM CDT Office Visit [facility] - Endocrinology - [place] #[address] [place] [address] Kirsten Niño MD #2 [facility] [address] [place] [address] documented as of this encounter Visit Diagnoses Not on filedocumented in this encounter Additional Health Concerns Infection Onset Date Last Indicated Resolved Time COVID - 19 06/29/2022 06/29/2022 07/09/2022 12:1 6 AM CDT COVID - 19 11/20/2022 11/20/2022 11/24/2022 8:51 AM BEARING MACHINE OPERATOR COVID - 19 12/31/2022 12/31/2022 01/10/2023 12:1 8 AM CDT COVID - 19 Confirmed 12/31/2022 12/31/2022 023 12:17 AM CDT COVID - 19 06/01/2023 06/01/2023 06/01/2023 8:16 AM CDT COVID - 19 11/01/2023 11/01/2023 11/11/2023 12:1 6 AM BEARING MACHINE OPERATOR COVID - 19 06/25/2024 06/25/2024 06/25/2024 6:36 PM CDT Assessment Noted Time PHQ-9 Depression Total Score: 0 11/22/19 10:00 AM BEARING MACHINE OPERATOR documented as of this encounter Care Teams Vendor Manager Relationship Specialty Start Date End Date Marco Woods MD #2 [facility] [address] [place] [address] PCP - General Family Medicine 11/22/17 Kirsten Niño MD #2 [facility] [address] [place] [address] Consulting Physician Endocrinology 07/17/22 Chin Burrows MD #2 [facility] [address] [place] [address] Consulting Physician General Surgery 11/22/22 Kelsea Root RN [place] Siding Applicator 06/15/23 08/26/23 Michelle Mendes APRN, SPORTS PHYSIOTHERAPIST #2 [facility] [address] [place] [address] Nurse Practitioner Advanced Practice Nurse 08/14/22 Chantelle Nix APRN, SPORTS PHYSIOTHERAPIST #2 [place] [address] Nurse Practitioner Advanced Practice Nurse 02/19/24 documented as of this encounter
--- OUTSIDE RECORDS SUMMARY | 2024-12-11 00:45 | XMS_ITS | Encounter Summary ---
Author Organization [facility] Address [address] [place] [address] Phone Care Team Providers Care Manufacturing Chief Engineer Name Role Phone Marco Woods MD Primary Care Provider Kirsten Niño MD Unavailable Chin Burrows MD Unavailable Michelle Mendes WATER AEROBICS INSTRUCTOR, STEAM CLOTHES PRESS OPERATOR Unavailable Chantelle Nix WATER AEROBICS INSTRUCTOR, STEAM CLOTHES PRESS OPERATOR Unavailable Reason for Visit * Reason Onset Date Comments Advice Only 12/01/2024 Encounter Details Date Type Department Care Team (Late st Contact Info) Description 12/01/2024 Telephone [facility] [address] [place] [address] Marco Woods MD #2 [facility] [place] [address] Advice Only Social History Tobacco Use Types Packs/Day Years Used Date Smoking Tobacco: Never Smokeless Tobacco: Never Alcohol Use Standard Drinks/Week Comments Not Currently 0 (1 standard drink = 0.6 oz pur e alcohol) [facility] Utilities Answer Date Recorded In the past [...] declined 06/25/2024 How often do you attend amish or jain serv ices? Patient declined 06/25/2024 Do you belong to any clubs o r organizations such as amish groups, unions, fraternal or athletic groups, or [...] Total Score - Questions 1-9 18 10/24 [facility] of Occupat ional Health - Occupational [...] place to sleep or slept in a senior living (including now)? Patient declined 11/28/2023 Housing Stability [...] any time in the past 12 m [facility], were you homeless or living in a senior living (including now)? Patient unable to answer 06/25/2024 Education Answer Date Recorded What is the highest level of school you have completed or the highest degree you have received? 12th grade 04/03/2023 Sexually Active Control Partners Comments Not Currently Comments No Sex and Gender Information Value Date Recorded Sex Assigned at Female 11/22/2023 11:58 AM TEMPLATE WORKER Legal Sex Female 11:34 PM CDT Gender Identity Female 11/22/2023 11:58 AM TEMPLATE WORKER Sexual Orientation Not on file Occupation Industry Job Start Date Job End Date disabled Not on file Not on file Not on file documented as of this encounter Miscellaneous Notes * Telephone Encounter - Shaunjensen Aly - 12/01/2024 11:05 AM TEMPLATE WORKER Symptoms: Abdominal Pain - Female - Not , Diarrhea, swollen in legs, difficulty walking Outcome: Warm transfer to an emergent RN NOW! Reason: Severe pain now The caller accepted this outcome. LATE WORKER documented in this encounter Plan of Treatment Upcoming Encounters Date Type Department Care Team (Late st Contact Info) Description 12/15/2024 3:30 PM TEMPLATE WORKER [facility] - [facility] #[address] [facility] [place] [address] Michelle Mendes APRN, STEAM CLOTHES PRESS OPERATOR #2 [facility] [address] [place] [address] 01/30/2025 9:00 AM CDT Office Visit [facility] Medical [facility] Endocrinology - [place] #[address] [facility] [place] [address] Kirsten Niño MD #2 [facility] [address] [place] [address] documented as of this encounter Visit Diagnoses Not on filedocumented in this encounter Additional Health Concerns Assessment Noted Time PHQ-9 Depression Total Score: 18 024 10:00 AM TEMPLATE WORKER documented as of this encounter Care Teams Manufacturing Chief Engineer Relationship Specialty Start Date End Date Marco Woods MD #2 [facility] [address] [place] [address] PCP - General Family Medicine 11/22/17 Kirsten Niño MD #2 [facility] [address] [place] [address] Consulting Physician Endocrinology 07/17/22 Chin Burrows MD #2 [facility] [address] [place] [address] Consulting Physician General Surgery 11/22/22 Michelle Mendes APRN, STEAM CLOTHES PRESS OPERATOR #[address] [facility] [address] [address] Nurse Practitioner Advanced Practice Nurse 08/14/22 Chantelle Nix APRN, STEAM CLOTHES PRESS OPERATOR #[address] [place] [address] Nurse Practitioner Advanced Practice Nurse 02/19/24 documented as of this encounter
--- OUTSIDE RECORDS SUMMARY | 2024-12-11 00:45 | XMS_ITS | Encounter Summary ---
Author Organization [facility] Address [address] [place] [address] Phone Care Team Providers Care Microstrategy Bi Developer Name Role Phone Marco Woods MD Primary Care Provider Kirsten Niño MD Unavailable Chin Burrows MD Unavailable Michelle Mendes APRN, RUG BACKING STENCILER Unavailable Chantelle Nix APRN, RUG BACKING STENCILER Unavailable Encounter Details Date Type Department Care Team (Late st Contact Info) Description 03/04/2024 Telephone [facility] [address] [place] [address] Marco Woods MD #2 [place] [address] Social History Tobacco Use Types Packs/Day Years Used Date Smoking Tobacco: Never Smokeless Tobacco: Never Alcohol Use Standard Drinks/Week Comments Not Currently 0 (1 standard drink = 0.6 oz pur e alcohol) [facility] Utilities Answer Date Recorded In the past [...] declined 11/28/2023 How often do you attend rastafari or episcopal serv ices? Patient declined 11/28/2023 Do you belong to any clubs o r organizations such as rastafari groups, unions, fraternal or athletic groups, or [...] Total Score - Questions 1-9 18 10/24 [facility] of Occupat ional Health - Occupational [...] place to sleep or slept in a custodial (including now)? Patient declined 11/28/2023 Education Answer Date Recorded What is the highest level of school you have completed or the highest degree you have received? 12th grade 04/03/2023 Sexually Active Control Partners Comments Not Currently Comments No Sex and Gender Information Value Date Recorded Sex Assigned at Female 11/22/2023 11:58 AM BLOCKER AND CUTTER CONTACT LENS Legal Sex Female 11:34 PM CDT Gender Identity Female 11/22/2023 11:58 AM BLOCKER AND CUTTER CONTACT LENS Sexual Orientation Not on file Occupation Industry Job Start Date Job End Date disabled Not on file Not on file Not on file documented as of this encounter Plan of Treatment Upcoming Encounters Date Type Department Care Team (Late st Contact Info) Description 12/15/2024 3:30 PM BLOCKER AND CUTTER CONTACT LENS [facility] - [place] #[address] [place] [address] Michelle Mendes, BAR ASSISTANT, RUG BACKING STENCILER #2 [facility] [address] [place] [address] 01/30/2025 9:00 AM CDT Office [facility] - Endocrinology - [place] #[address] [place] [address] Kirsten Niño MD #2 [facility] [address] [place] [address] documented as of this encounter Visit Diagnoses Not on filedocumented in this encounter Additional Health Concerns Infection Onset Date Last Indicated Resolved Time COVID - 19 06/25/2024 06/25/2024 06/25/2024 6:36 PM CDT Assessment Noted Time PHQ-9 Depression Total Score: 18 024 10:00 AM BLOCKER AND CUTTER CONTACT LENS documented as of this encounter Care Teams Microstrategy Bi Developer Relationship Specialty Start Date End Date Marco Woods MD #2 [facility] [address] [place] [address] PCP - General Family Medicine 11/22/17 Kirsten Niño MD #2 [facility] [address] [place] [address] Consulting Physician Endocrinology 07/17/22 Chin Burrows MD #2 [facility] [address] [place] [address] Consulting Physician General Surgery 11/22/22 Michelle Mendes APRN, RUG BACKING STENCILER #2 [facility] [address] [place] [address] Nurse Practitioner Advanced Practice Nurse 08/14/22 Chantelle Nix APRN, RUG BACKING STENCILER #2 [place] [address] Nurse Practitioner Advanced Practice Nurse 02/19/24 documented as of this encounter
--- OUTSIDE RECORDS SUMMARY | 2024-12-11 00:45 | XMS_ITS | Encounter Summary ---
Author Organization [facility] Address [address] [place] [address] Phone Care Team Providers Care Electric Refrigerator Servicer Name Role Phone Marco Woods MD Primary Care Provider [phone] Kirsten Niño MD Unavailable Chin Burrows MD Unavailable Michelle Mendes APRN, WAIST PLEATER Unavailable Chantelle Nix HYDRO EXCAVATION OPERATOR, WAIST PLEATER Unavailable Reason for Visit * Reason Comments Medication Refill Encounter Details Date Type Department Care Team (Late st Contact Info) Description 01/23/2024 Refill [facility] - Family Medicine - [place] [address] [place] [phone] Marco Woods MD [id number] [address] Medication Refill Social History Tobacco Use Types Packs/Day Years Used Date Smoking Tobacco: Never Smokeless Tobacco: Never Alcohol Use Standard Drinks/Week Comments Not Currently 0 (1 standard drink = 0.6 oz pur e alcohol) [facility] Utilities Answer Date Recorded In [...] declined 11/28/2023 How often do you attend confucianism or mosque serv ices? Patient declined 11/28/2023 Do you belong to any clubs o r organizations such as confucianism groups, unions, fraternal or athletic groups, or [...] Total Score - Questions 1-9 18 10/24 [facility] of Occupat ional Health - Occupational [...] place to sleep or slept in a chcf (including now)? Patient declined 11/28/2023 Education Answer Date Recorded What is the highest level of school you have completed or the highest degree you have received? 12th grade 04/03/2023 Sexually Active Control Partners Comments Not Currently Comments No Sex and Gender Information Value Date Recorded Sex Assigned at Female 11/22/2023 11:58 AM FLEXIBLE SHAFT WINDER Legal Sex Female 11:34 PM CDT Gender Identity Female 11/22/2023 11:58 AM FLEXIBLE SHAFT WINDER Sexual Orientation Not on file Occupation Industry Job Start Date Job End Date disabled Not on file Not on file Not on file documented as of this encounter Miscellaneous Notes * Telephone Encounter - Amada Orozco RN - 01/24/2024 8:57 AM CDT Images from the original note were not included. Atorvastatin Calcium Dispensed Days Supply Quantity Provider Pharmacy ATORVASTATIN CALCIUM 20 MG TABS 01/01/2024 28 28 Tablet Maria Antonia Galeana MD [facility] - Alt... ATORVASTATIN CALCIUM 20 MG TABS 12/13/2023 21 21 Tablet Maria Antonia Galeana MD [facility] - [place]... ATORVASTATIN 20MG TABLETS 10/06/2023 90 90 Each Marco Woods MD [facility] #... documented in this encounter Plan of Treatment Upcoming Encounters Date Type Department Care Team (Late st Contact Info) Description 12/15/2024 3:30 PM FLEXIBLE SHAFT WINDER [facility] - Pulmonology & Sleep Medicine [facility] #2 [facility] [place] [address] Michelle Mendes APRN, WAIST PLEATER #2 [facility] [address] [place] [address] 01/30/2025 9:00 AM CDT Office Visit [facility] - Endocrinology - [place] #2 [facility] [place] [address] Kirsten Niño MD #2 [facility] [address] [place] [address] documented as of this encounter Visit Diagnoses Not on filedocumented in this encounter Additional Health Concerns Infection Onset Date Last Indicated Resolved Time COVID - 19 06/25/2024 06/25/2024 06/25/2024 6:36 PM CDT Assessment Noted Time PHQ-9 Depression Total Score: 18 024 10:00 AM FLEXIBLE SHAFT WINDER documented as of this encounter Care Teams Electric Refrigerator Servicer Relationship Specialty Start Date End Date Marco Woods MD #2 [facility] [address] [place] [address] PCP - General Family Medicine 11/22/17 Kirsten Niño MD #2 [facility] [address] [place] [address] Consulting Physician Endocrinology 07/17/22 Chin Burrows MD #[address] [place] [address] Consulting Physician General Surgery 11/22/22 Michelle Mendes APRN, DREW [facility] [address] Nurse Practitioner Advanced Practice Nurse 08/14/22 Chantelle Nix APRN, DREW #2 [place] [address] Nurse Practitioner Advanced Practice Nurse 02/19/24 documented as of this encounter
--- OUTSIDE RECORDS SUMMARY | 2024-12-11 00:45 | XMS_ITS | Encounter Summary ---
Author Organization [facility] Address [address] [place] [address] Phone Care Team Providers Care Plumbing Instructor Name Role Phone Marco Woods MD Primary Care Provider [phone] Kirsten Niño MD Unavailable Chin Burrows MD Unavailable Michelle Mendes APRN, COUNTY TREASURER Unavailable Chantelle Nix SENIOR ASIC ENGINEER, COUNTY TREASURER Unavailable Reason for Visit * Reason Comments Medication Refill Encounter Details Date Type Department Care Team (Late st Contact Info) Description 01/22/2024 Refill [facility] - Family Medicine - [place] [address] [place] [phone] Marco Woods MD #[address] [address] Medication Refill Social History Tobacco Use Types Packs/Day Years Used Date Smoking Tobacco: Never Smokeless Tobacco: Never Alcohol Use Standard Drinks/Week Comments Not Currently 0 (1 standard drink = 0.6 oz pur e alcohol) [facility] Utilities Answer Date Recorded In the past [...] declined 11/28/2023 How often do you attend mormon or zoroastrian serv ices? Patient declined 11/28/2023 Do you belong to any clubs o r organizations such as mormon groups, unions, fraternal or athletic groups, or [...] Total Score - Questions 1-9 18 10/24 [facility] of Occupat ional Health - [...] place to sleep or slept in a m[facility] (including now)? Patient declined 11/28/2023 Education Answer Date Recorded What is the highest level of school you have completed or the highest degree you have received? 12th grade 04/03/2023 Sexually Active Control Partners Comments Not Currently Comments No Sex and Gender Information Value Date Recorded Sex Assigned at Female 11/22/2023 11:58 AM FRONT DESK SUPERVISOR Legal Sex Female 11:34 PM CDT Gender Identity Female 11/22/2023 11:58 AM FRONT DESK SUPERVISOR Sexual Orientation Not on file Occupation Industry Job Start Date Job End Date disabled Not on file Not on file Not on file documented as of this encounter Miscellaneous Notes * Telephone Encounter - Amada Orozco RN - 01/23/2024 9:12 AM CDT Medication failed the protocol, provider to review and approve the medication order if appropriate. Requested Prescriptions Pending Prescriptions Disp Refills lithium (LITHOBID) 300 MG Tablet Controlled Release [Pharmacy Med Name: Dasher Carbonate ER 300MG TBCR] 56 Tablet 5 Sig: TAKE 1 TABLET BY MOUTH TWICE A DAY Not Delegated - Antimanic Agents Protocol Failed - 01/22/2024 9:25 AM Failed - This refill cannot be delegated Passed - Visit with relevant provider in past 12 months or upcoming 90 days Recent Visits Date Type Provider Dept 12/05/23 Office Visit Marco Woods MD [facility] 11/20/23 Office Visit Ronald Shaffer APRN, COUNTY TREASURER [facility]/10/23 Office Visit Rebecca Liu APRN, DREW [facility] [place] 08/24/23 [facility] Office Visit Marco Woods MD [facility] 05/01/23 Office Visit Marco oWods MD [facility] 04/18/23 Office Visit Marco Woods MD [facility] 04/03/23 Office Visit Marco Woods MD [facility] 03/12/23 Office Visit Marco Woods MD [facility] 03/05/23 Office Visit Mirtha Steiner APRN, [facility] Showing recent visits within past 365 days and meeting all other requirements Future Appointments Date Type Provider Dept 03/12/24 Appointment [facility] MD [facility] Show[facility] future appointments within next 90 days and meeting all other requirements documented in this encounter Plan of Treatment Upcoming Encounters Date Type Department Care Team (Late st Contact Info) Description 12/15/2024 3:30 PM FRONT DESK SUPERVISOR Office Visit [facility] - Pulmonology & Sleep Medicine - [place] #2 [place] [address] Michelle Mendes APRN, COUNTY TREASURER #2 [facility] [address] [place] [address] 01/30/2025 9:00 AM CDT Office Visit [facility] - Endocrinology - [place] #2 [place] [address] Kirsten Niño MD #2 [facility] [address] [place] [address] documented as of this encounter Visit Diagnoses Not on filedocumented in this encounter Additional Health Concerns Infection Onset Date Last Indicated Resolved Time COVID - 19 06/25/2024 06/25/2024 06/25/2024 6:36 PM CDT Assessment Noted Time PHQ-9 Depression Total Score: 18 024 10:00 AM FRONT DESK SUPERVISOR documented as of this encounter Care Teams Plumbing Instructor Relationship Specialty Start Date End Date Marco Woods MD #2 [facility] [address] [place] [address] PCP - General Family Medicine 11/22/17 Kirsten Niño MD #2 [facility] [address] [place] [address] Consulting Physician Endocrinology 07/17/22 Chin Burrows MD #2 [facility] [address] [place] [address] Consulting Physician General Surgery 11/22/22 Michelle Mendes APRN, COUNTY TREASURER #2 [facility] [address] [place] [address] Nurse Practitioner Advanced Practice Nurse 08/14/22 Chantelle Nix APRN, COUNTY TREASURER #2 [place] [address] Nurse Practitioner Advanced Practice Nurse 02/19/24 documented as of this encounter
--- OUTSIDE RECORDS SUMMARY | 2024-12-11 00:45 | XMS_ITS | Encounter Summary ---
Author Organization [facility] Address [address] [place] [address] Phone Care Team Providers Care Treating And Pumping Supervisor Name Role Phone Marco Woods MD Primary Care Provider Kirsten Niño MD Unavailable Chin Burrows MD Unavailable Kelsea Root RN Unavailable Unavailable Michelle Mendes APRN, DIRECTOR AND PROFESSOR Unavailable Chantelle Nix APRN, DIRECTOR AND PROFESSOR Unavailable Encounter Details Date Type Department Care Team (Late st Contact Info) Description 11/07/2022 Transcribe Orders [facility] [address] [place] [address] Chin Burrows MD #[address] [address] Pre-op testing (Primary Dx) Social History Tobacco Use Types Packs/Day Years Used Date Smoking Tobacco: Never Smokeless Tobacco: Never Alcohol Use Standard Drinks/Week Comments Not Currently 0 (1 standard drink = 0.6 oz pur e alcohol) Sexually Active Control Partners Comments Not Currently Comments No Sex and Gender Information Value Date Recorded Sex Assigned at Female 11/22/2023 11:58 AM WARM IN WORKER Legal Sex Female 11:34 PM CDT Gender Identity Female 11/22/2023 11:58 AM WARM IN WORKER Sexual Orientation Not on file Occupation Industry Job Start Date Job End Date disabled Not on file Not on file Not on file COVID-19 Exposure Response Date Recorded In the last 10 days, have yo u been in contact with someone who was confirmed or suspected to have Coronavirus/COVID-19? No / Unsure 11/07/2022 1:33 PM WARM IN WORKER documented as of this encounter Plan of Treatment Upcoming Encounters Date Type Department Care Team (Late st Contact Info) Description 12/15/2024 3:30 PM WARM IN WORKER Office Visit [facility] - Pulmonology & Sleep Medicine [facility] #2 [place] [address] Michelle Mendes APRN, DREW #2 [facility] [address] [place] [address] 01/30/2025 9:00 AM CDT Office Visit [facility] - Endocrinology - [place] #2 [place] [address] Kirsten Niño MD #2 [facility] [address] [place] [address] documented as of this encounter Results * SARS-COV-2 BY MOLECULAR (11/13/2022 6:21 AM WARM IN WORKER) SARSCOV2 NOT DETECTED (Referenc e Range for this test is Not Detected) [facility] LEACH ID NOW 11/13/2022 7:17 AM WARM IN WORKER [facility] Comment:This test was perfor med by a MOLECULAR, NON-PCR method Other NASOPHARYNGEAL STRUCTURE / Unknown Non-Phlebotomy Collection / Unknown 11/13/2022 6:21 AM WARM IN WORKER 11/13/2022 7:02 AM WARM IN WORKER Narrative [facility] - 11/13/2022 7:17 AM WARM IN WORKER This test has been authorized by the FDA under an Emergency Use Authorization (EUA) only. Negative results should be treated as presumptive and, if inconsistent with clinical signs and symptoms or necessary for patient management, the patient should be tested with an alternative molecular assay. Negative results do not preclude SARS-CoV-2 infection or any other respiratory pathogen. Additional information for Clinicians can be found at: https://www.fda.gov/media/254706/download Additional information for Patients can be found at: https://www.fda.gov/media/855321/download Chin Burrows MD MICROBIOLOGY - GENERA L ORDERABLES Final Result [facility] #1 [place] [address] documented in this encounter Visit Diagnoses Diagnosis Pre-op testing- Primary Preoperative examination, unspecified documented in this encounter Additional Health Concerns Infection Onset Date Last Indicated Resolved Time COVID - 19 11/20/2022 11/20/2022 11/24/2022 8:51 AM WARM IN WORKER COVID - 19 12/31/2022 12/31/2022 01/10/2023 12:1 8 AM CDT COVID - 19 Confirmed 12/31/2022 12/31/2022 023 12:17 AM CDT COVID - 19 06/01/2023 06/01/2023 06/01/2023 8:16 AM CDT COVID - 19 11/01/2023 11/01/2023 11/11/2023 12:1 6 AM WARM IN WORKER COVID - 19 06/25/2024 06/25/2024 06/25/2024 6:36 PM CDT Assessment Noted Time PHQ-9 Depression Total Score: 0 11/22/19 18 10:00 AM WARM IN WORKER documented as of this encounter Care Teams Treating And Pumping Supervisor Relationship Specialty Start Date End Date Marco Woods MD #2 [facility] [address] [place] [address] PCP - General Family Medicine 11/22/17 Kirsten Niño MD #2 [facility] [address] [place] [address] Consulting Physician Endocrinology 07/17/22 Chin Burrows MD #2 [facility] [address] [place] [address] Consulting Physician General Surgery 11/22/22 Kelsea Root RN [place] Technical Support Manager 06/15/23 08/26/23 Michelle Mendes APRN, DIRECTOR AND PROFESSOR #2 [facility] [address] [place] [address] Nurse Practitioner Advanced Practice Nurse 08/14/22 Chantelle Nix APRN, DIRECTOR AND PROFESSOR #2 [place] [address] Nurse Practitioner Advanced Practice Nurse 02/19/24 documented as of this encounter
--- OUTSIDE RECORDS SUMMARY | 2024-12-11 00:45 | XMS_ITS | Encounter Summary ---
Author Organization [facility] Address [address] [place] [address] Phone Care Team Providers Care Towel Hemmer Name Role Phone Marco Woods MD Primary Care Provider [phone] Kirsten Niño MD Unavailable Chin Burrows MD Unavailable Kelsea Root RN Unavailable Unavailable Michelle Mendes APRN, HEALTHCARE RECEPTIONIST Unavailable Chantelle Nix APRN, HEALTHCARE RECEPTIONIST Unavailable Reason for Visit * Reason Comments Medication Refill Encounter Details Date Type Department Care Team (Late st Contact Info) Description 10/16/2022 Refill [facility] - Family Medicine [facility] #2 [place] [phone] Marco Woods MD #[id number] [address] Medication Refill Social History Tobacco Use Types Packs/Day Years Used Date Smoking Tobacco: Never Smokeless Tobacco: Never Alcohol Use Standard Drinks/Week Comments Not Currently 0 (1 standard drink = 0.6 oz pur e alcohol) Sexually Active Control Partners Comments Not Currently Comments No Sex and Gender Information Value Date Recorded Sex Assigned at Female 11/22/2023 11:58 AM UROGYNAECOLOGIST Legal Sex Female 11:34 PM CDT Gender Identity Female 11/22/2023 11:58 AM UROGYNAECOLOGIST Sexual Orientation Not on file Occupation Industry Job Start Date Job End Date disabled Not on file Not on file Not on file COVID-19 Exposure Response Date Recorded In the last 10 days, have yo u been in contact with someone who was confirmed or suspected to have Coronavirus/COVID-19? No / Unsure 10/11/2022 9:23 AM UROGYNAECOLOGIST documented as of this encounter Miscellaneous Notes * Telephone Encounter - Amada Orozco RN - 10/17/2022 1:36 PM CST Medication failed the protocol, provider to review and approve the medication order if appropriate. Requested Prescriptions Pending Prescriptions Disp Refills cyclobenzaprine (FLEXERIL) 5 MG Tablet [Pharmacy Med Name: CYCLOBENZAPRINE 5MG TABLETS] 90 Tablet 1 Sig: TAKE 1 TABLET BY MOUTH THREE TIMES DAILY NEEDED FOR MUSCLE SPASMS Not Delegated - Muscle Relaxants Protocol Failed - 10/16/2022 10:39 AM Failed - This refill cannot be delegated Failed - Not delegated, patient not between 1 and 65 years of age Passed - Visit with relevant provider in past 12 months or upcoming 90 days Recent Visits Date Type Provider Dept 08/29/22 Office Visit Ronald Shaffer APRN, HEALTHCARE RECEPTIONIST [facility] 07/12/22 Office Visit Jany Hernandez, SUSI [facility] 06/23/22 Office Visit [facility] 05/19/22 Office Visit Marco Woods MD [facility] 01/10/22 Office Visit Marco Woods MD [facility] Showing recent visits within past 365 days and meeting all other requirements Future Appointments Date Type Provider Dept 10/25/22 Appointment Marco Woods MD [facility] Showing future appointments within next 90 days and meeting all other requirements YNAECOLOGIST documented in this encounter Plan of Treatment Upcoming Encounters Date Type Department Care Team (Late st Contact Info) Description 12/15/2024 3:30 PM UROGYNAECOLOGIST Office Visit [facility] - Pulmonology & Sleep Medicine - [place] #[address] [place] [address] Michelle Mendes APRN, HEALTHCARE RECEPTIONIST #2 [facility] [address] [place] [address] 01/30/2025 9:00 AM CDT Office Visit [facility] - Endocrinology [facility] #2 [place] [phone] Kirsten Niño MD #2 [facility] [address] [place] [address] documented as of this encounter Visit Diagnoses Not on filedocumented in this encounter Additional Health Concerns Infection Onset Date Last Indicated Resolved Time COVID - 19 11/20/2022 11/20/2022 11/24/2022 8:51 AM UROGYNAECOLOGIST COVID - 19 12/31/2022 12/31/2022 01/10/2023 12:1 8 AM CDT COVID - 19 Confirmed 12/31/2022 12/31/2022 023 12:17 AM CDT COVID - 19 06/01/2023 06/01/2023 06/01/2023 8:16 AM CDT COVID - 19 11/01/2023 11/01/2023 11/11/2023 12:1 6 AM UROGYNAECOLOGIST COVID - 19 06/25/2024 06/25/2024 06/25/2024 6:36 PM CDT Assessment Noted Time PHQ-9 Depression Total Score: 0 11/22/19 10:00 AM UROGYNAECOLOGIST documented as of this encounter Care Teams Towel Hemmer Relationship Specialty Start Date End Date Marco Woods MD #2 [facility] [address] [place] [address] PCP - General Family Medicine 11/22/17 Kirsten Niño MD #2 [facility] [address] [place] [address] Consulting Physician Endocrinology 07/17/22 Chin Burrows MD #2 [facility] [address] [place] [address] Consulting Physician General Surgery 11/22/22 Kelsea Root RN [place] Marketing Engineer 06/15/23 08/26/23 Michelle Mendes APRN, HEALTHCARE RECEPTIONIST #2 [facility] [address] [place] [address] Nurse Practitioner Advanced Practice Nurse 08/14/22 Chantelle Nix APRN, HEALTHCARE RECEPTIONIST #2 [place] [address] Nurse Practitioner Advanced Practice Nurse 02/19/24 documented as of this encounter
--- OUTSIDE RECORDS SUMMARY | 2024-12-11 00:45 | XMS_ITS | Encounter Summary ---
Author Organization [facility] Address [address] [place] [address] Phone Care Team Providers Care Transaction Processor Name Role Phone Marco Woods MD Primary Care Provider Kirsten Niño MD Unavailable Chin Burrows MD Unavailable [phone] Kelsea Root RN Unavailable Unavailable Michelle Mendes APRN, WASTEWATER PLANT OPERATOR Unavailable Chantelle Nix APRN, WASTEWATER PLANT OPERATOR Unavailable Reason for Visit * Reason Comments Medication Refill Encounter Details Date Type Department Care Team (Late st Contact Info) Description 04/25/2021 Refill [facility] [address] [place] [address] Mirtha Steiner APRN, WASTEWATER PLANT OPERATOR #2 [facility] [place] [address] Medication Refill Social History Tobacco Use Types Packs/Day Years Used Date Smoking Tobacco: Never Smokeless Tobacco: Former Alcohol Use Standard Drinks/Week Comments Not Currently 0 (1 standard drink = 0.6 oz pur e alcohol) Sexually Active Control Partners Comments Not Currently Comments No Sex and Gender Information Value Date Recorded Sex Assigned at Female 11/22/2023 11:58 AM FIELD HUMAN RESOURCES MANAGER Legal Sex Female 11:34 PM CDT Gender Identity Female 11/22/2023 11:58 AM FIELD HUMAN RESOURCES MANAGER Sexual Orientation Not on file Occupation Industry Job Start Date Job End Date disabled Not on file Not on file Not on file COVID-19 Exposure Response Date Recorded In the last month, have you been in contact with someone who was confirmed or suspected to have Coronavirus / COVID-19? No / Unsure 04/20/2021 1:06 PM CDT documented as of this encounter Miscellaneous Notes * Telephone Encounter - Marco Woods MD - 04/27/2021 8:57 AM CDT Prescription approved. Please call in * Telephone Encounter - Amada Orozco RN - 04/27/2021 8:57 AM CDT Medication failed the protocol, provider to review and approve the medication order if appropriate. Requested Prescriptions Pending Prescriptions Disp Refills cyclobenzaprine (FLEXERIL) 5 MG Tablet [Pharmacy Med Name: CYCLOBENZAPRINE 5MG TABLETS] 90 Tablet 1 Sig: TAKE 1 TABLET BY MOUTH THREE TIMES DAILY NEEDED FOR MUSCLE SPASMS [facility] Not Delegated - Analgesics: Muscle Relaxants Failed - 04/27/2021 8:56 AM Failed - This refill cannot be delegated Passed - Valid encounter within last 6 months Past Office Visits Recent Outpatient Visits 1 month ago Asthma, unspecified asthma severity, unspecified whether complicated, unspecified whether persistent [facility] - Marco Menchaca MD 2 months ago Asthma, unspecified asthma severity, unspecified whether complicated, unspecified whether persistent [facility] - Marco Mench[place] MD 2 months ago Asthma, unspecified asthma severity, unspecified whether complicated, unspecified whether persistent [facility] - Marco Menchaca MD 4 months ago Sacroiliac joint dysfunction of both sides [facility] - Family Medicine - Mirtha Haq APN, WASTEWATER PLANT OPERATOR 5 months ago Asthma, unspecified asthma severity, unspecified whether complicated, unspecified whether persistent [facility] - Family Medicine - Marco Menchaca MD Upcoming Appointments Future Appointments In 2 months Marco Woods MD [facility] Family Medicine [facility], [facility] In 2 months Kirsten Niño MD [facility] Endocrinology [facility] In 3 months Michelle Mendes APN, DREW [facility] [place] [place] Pulmonology & Sleep Medicine [facility] FINISHING DEPARTMENT SUPERVISOR - Recent and Past Visits Recent Visits Date Type Provider Dept 03/25/21 Office Visit Marco Woods MD [facility] 02/22/21 Office Visit Marco Woods MD [facility] 02/07/21 Office Visit Marco Woods MD [facility] 12/21/20 Telemedicine Mirtha Steiner APN, CNP [facility] 11/09/20 Office Visit Marco Woods MD [facility] 09/06/20 Office Visit Marco Woods MD [facility] 06/09/20 Office Visit Marco Woods MD [facility] 04/27/20 Office Visit Marco Woods MD [facility] Showing recent visits within past 460 days with a meds authorizing provider and meeting all other requirements Future Appointments Date Type Provider Dept 06/28/21 Appointment [facility] MD [facility] Showing future appointments within next 90 days with a meds authorizing provider and meeting all other requirements documented in this encounter Plan of Treatment Upcoming Encounters Date Type Department Care Team (Late st Contact Info) Description 12/15/2024 3:30 PM FIELD HUMAN RESOURCES MANAGER Office Visit [facility] [place] Pulmonology & Sleep Medicine [facility] #[address] [place] [address] Michelle Mendes APRN, WASTEWATER PLANT OPERATOR [address] [address] 01/30/2025 9:00 AM CDT Office Visit [facility] Endocrinology [facility] #2 [facility] [place] [address] Kirsten Niño MD #2 [facility] [address] [place] [address] documented as of this encounter Visit Diagnoses Not on filedocumented in this encounter Additional Health Concerns Infection Onset Date Last Indicated Resolved Time COVID - 19 06/29/2022 06/29/2022 07/09/2022 12:1 6 AM CDT COVID - 19 11/20/2022 11/20/2022 11/24/2022 8:51 AM FIELD HUMAN RESOURCES MANAGER COVID - 19 12/31/2022 12/31/2022 01/10/2023 12:1 8 AM CDT COVID - 19 Confirmed 12/31/2022 12/31/2022 023 12:17 AM CDT COVID - 19 06/01/2023 06/01/2023 06/01/2023 8:16 AM CDT COVID - 19 11/01/2023 11/01/2023 11/11/2023 12:1 6 AM FIELD HUMAN RESOURCES MANAGER COVID - 19 06/25/2024 06/25/2024 06/25/2024 6:36 PM CDT Assessment Noted Time PHQ-9 Depression Total Score: 0 11/22/19 10:00 AM FIELD HUMAN RESOURCES MANAGER documented as of this encounter Care Teams Transaction Processor Relationship Specialty Start Date End Date Marco Woods MD #2 [facility] [address] [place] [address] PCP - General Family Medicine 11/22/17 Kirsten Niño MD #2 [facility] [address] [place] [address] Consulting Physician Endocrinology 07/17/22 Chin Burrows MD #2 [facility] [address] [place] [address] Consulting Physician General Surgery 11/22/22 Kelsea Root RN [place] Water Project Engineer 06/15/23 08/26/23 Michelle Mendes APRN, WASTEWATER PLANT OPERATOR #2 [facility] [address] [address] Nurse Practitioner Advanced Practice Nurse 08/14/22 Chantelle Nix APRN, WASTEWATER PLANT OPERATOR #2 [place] [address] Nurse Practitioner Advanced Practice Nurse 02/19/24 documented as of this encounter
--- OUTSIDE RECORDS SUMMARY | 2024-12-11 00:45 | XMS_ITS | Encounter Summary ---
Author Organization [facility] Address [address] [place] [address] Phone Care Team Providers Care Music Box Mechanic Name Role Phone Marco Woods MD Primary Care Provider [phone] Kirsten Niño MD Unavailable Chin Burrows MD Unavailable Kelsea Root RN Unavailable Unavailable Michelle Mendes APRN, CATHODE RAY TUBE SALVAGE PROCESSOR Unavailable Chantelle Nix APRN, CATHODE RAY TUBE SALVAGE PROCESSOR Unavailable Reason for Visit * Reason Comments Medication Refill Encounter Details Date Type Department Care Team (Late st Contact Info) Description 08/06/2021 [facility] [address] [place] [address] Marco Woods MD #2 [facility] [place] [address] Medication Refill Social History Tobacco Use Types Packs/Day Years Used Date Smoking Tobacco: Never Smokeless Tobacco: Former Alcohol Use Standard Drinks/Week Comments Not Currently 0 (1 standard drink = 0.6 oz pur e alcohol) Sexually Active Control Partners Comments Not Currently Comments No Sex and Gender Information Value Date Recorded Sex Assigned at Female 11/22/2023 11:58 AM GANTRY CRANE OPERATOR Legal Sex Female 11:34 PM CDT Gender Identity Female 11/22/2023 11:58 AM GANTRY CRANE OPERATOR Sexual Orientation Not on file Occupation Industry Job Start Date Job End Date disabled Not on file Not on file Not on file COVID-19 Exposure Response Date Recorded In the last month, have you been in contact with someone who was confirmed or suspected to have Coronavirus / COVID-19? No / Unsure 08/08/2021 8:42 AM CDT documented as of this encounter Miscellaneous Notes * Telephone Encounter - Marco Woods MD - 08/08/2021 11:13 AM CDT Prescription approved. Please call in * Telephone Encounter - Lesly Renteria RN - 08/08/2021 10:41 AM CDT Medication failed the protocol, provider to review and approve the medication order if appropriate. Requested Prescriptions Pending Prescriptions Disp Refills cyclobenzaprine (FLEXERIL) 5 MG Tablet [Pharmacy Med Name: CYCLOBENZAPRINE 5MG TABLETS] 90 Tablet 1 Sig: TAKE 1 TABLET BY MOUTH THREE TIMES DAILY NEEDED FOR MUSCLE SPASMS Not Delegated - Muscle Relaxants Protocol Failed - 08/06/2021 10:14 AM Failed - This refill cannot be delegated Failed - Not delegated, patient not between 1 and 65 years of age Passed - Visit with relevant provider in past 12 months or upcoming 90 days Recent Visits Date Type Provider Dept 06/29/21 Office Visit Marco Woods MD [facility] 03/25/21 Office Visit Marco Woods MD [facility] 02/22/21 Office Visit Marco Woods MD [facility] 02/07/21 Office Visit Marco Woods MD [facility] 12/21/20 Telemedicine Mirtha Steiner APN, DREW [facility] [place] 11/09/20 Office Visit Marco Woods MD [facility] 09/06/20 Office Visit Marco Woods MD [facility] Showing recent visits within past 365 days and meeting all other requirements Future Appointments Date Type Provider Dept 09/28/21 Appointment Marco Woods MD [facility] Showing future appointments within next 90 days and meeting all other requirements documented in this encounter Plan of Treatment Upcoming Encounters Date Type Department Care Team (Late st Contact Info) Description 12/15/2024 3:30 PM GANTRY CRANE OPERATOR [facility] - Pulmonology & Sleep Medicine - [place] #2 [place] [address] Michelle Mendes APRN, CATHODE RAY TUBE SALVAGE PROCESSOR #2 [facility] [address] [place] [address] 01/30/2025 9:00 AM CDT Office Visit [facility] Medical [facility] - Endocrinology - [place] #2 [facility] [address] Kirsten Niño MD #2 [facility] [address] [place] [address] documented as of this encounter Visit Diagnoses Not on filedocumented in this encounter Additional Health Concerns Infection Onset Date Last Indicated Resolved Time COVID - 19 06/29/2022 06/29/2022 07/09/2022 12:1 6 AM CDT COVID - 19 11/20/2022 11/20/2022 11/24/2022 8:51 AM GANTRY CRANE OPERATOR COVID - 19 12/31/2022 12/31/2022 01/10/2023 12:1 8 AM CDT COVID - 19 Confirmed 12/31/2022 12/31/2022 023 12:17 AM CDT COVID - 19 06/01/2023 06/01/2023 06/01/2023 8:16 AM CDT COVID - 19 11/01/2023 11/01/2023 11/11/2023 12:1 6 AM GANTRY CRANE OPERATOR COVID - 19 06/25/2024 06/25/2024 06/25/2024 6:36 PM CDT Assessment Noted Time PHQ-9 Depression Total Score: 0 02/01/20 18 10:00 AM GANTRY CRANE OPERATOR documented as of this encounter Care Teams Music Box Mechanic Relationship Specialty Start Date End Date Marco Woods MD [facility] [address] [place] [address] PCP - General Family Medicine 11/22/17 Kirsten Niño MD #2 [facility] [address] [place] [address] Consulting Physician Endocrinology 07/17/22 Chin Burrows MD #2 [facility] [address] [place] [address] Consulting Physician General Surgery 11/22/22 Kelsea Root RN [place] Sod Cutter 06/15/23 08/26/23 Michelle Mendes APRN, CATHODE RAY TUBE SALVAGE PROCESSOR #2 [facility] [address] [place] [address] Nurse Practitioner Advanced Practice Nurse 08/14/22 Chantelle Nix APRN, CATHODE RAY TUBE SALVAGE PROCESSOR #2 [place] [address] Nurse Practitioner Advanced Practice Nurse 02/19/24 documented as of this encounter
--- OUTSIDE RECORDS SUMMARY | 2024-12-11 00:45 | XMS_ITS | Encounter Summary ---
Author Organization [facility] Address [address] [place] [address] Phone Care Team Providers Care Oil Gauger Name Role Phone Marco Woods MD Primary Care Provider Kirsten Niño MD Unavailable Chin Burrows MD Unavailable Michelle Mendes APRN, FOLDER MACHINE OPERATOR Unavailable [phone] Chantelle Nix APRN, FOLDER MACHINE OPERATOR Unavailable Encounter Details Date Type Department Care Team (Late st Contact Info) Description 02/12/2024 Telephone [facility] [address] [place] [phone] Marco Woods MD #2 [facility] [place] [place] [address] Social History Tobacco Use Types Packs/Day Years Used Date Smoking Tobacco: Never Smokeless Tobacco: Never Alcohol Use Standard Drinks/Week Comments Not Currently 0 (1 standard drink = 0.6 oz pur e alcohol) [facility] Utilities Answer Date Recorded In the [...] declined 11/28/2023 How often do you attend sabianist or cheondoism serv ices? Patient declined 11/28/2023 Do you belong to any clubs o r organizations such as sabianist groups, unions, fraternal or athletic groups, or [...] Total Score - Questions 1-9 18 10/24 [facility] - [...] place to sleep or slept in a skilled nursing (including now)? Patient declined 11/28/2023 Education Answer Date Recorded What is the highest level of school you have completed or the highest degree you have received? 12th grade 04/03/2023 Sexually Active Control Partners Comments Not Currently Comments No Sex and Gender Information Value Date Recorded Sex Assigned at Female 11/22/2023 11:58 AM BARREL INSPECTOR Legal Sex Female 11:34 PM CDT Gender Identity Female 11/22/2023 11:58 AM BARREL INSPECTOR Sexual Orientation Not on file Occupation Industry Job Start Date Job End Date disabled Not on file Not on file Not on file documented as of this encounter Plan of Treatment Upcoming Encounters Date Type Department Care Team (Late st Contact Info) Description 12/15/2024 3:30 PM BARREL INSPECTOR [facility] - [place] [address] [place] [address] Michelle Mendes, BILLIARD TABLE MECHANIC, FOLDER MACHINE OPERATOR #[facility] [address] [place] [address] 01/30/2025 9:00 AM CDT [facility] - Endocrinology - [place] [address] [place] [phone] Kirsten Niño MD #[facility] [address] [place] [address] documented as of this encounter Visit Diagnoses Not on filedocumented in this encounter Additional Health Concerns Infection Onset Date Last Indicated Resolved Time COVID - 19 06/25/2024 06/25/2024 06/25/2024 6:36 PM CDT Assessment Noted Time PHQ-9 Depression Total Score: 18 024 10:00 AM BARREL INSPECTOR documented as of this encounter Care Teams Oil Gauger Relationship Specialty Start Date End Date Marco Woods MD #[facility] [address] [place] [address] PCP - General Family Medicine 11/22/17 Kirsten Niño MD #[facility] [address] [place] [address] Consulting Physician Endocrinology 07/17/22 Chin Burrows MD #[facility] [address] [place] [address] Consulting Physician General Surgery 11/22/22 Michelle Mendes APRN, FOLDER MACHINE OPERATOR #[facility] [address] [place] [address] Nurse Practitioner Advanced Practice Nurse 08/14/22 Chantelle Nix APRN, FOLDER MACHINE OPERATOR #2 [place] [address] Nurse Practitioner Advanced Practice Nurse 02/19/24 documented as of this encounter
--- OUTSIDE RECORDS SUMMARY | 2024-12-11 00:45 | XMS_ITS | Encounter Summary ---
Author Organization [facility] Address [address] [place] [address] Phone Care Team Providers Care Senior Lead Software Engineer Name Role Phone Marco Woods MD Primary Care Provider [phone] Kirsten Niño MD Unavailable Chin Burrows MD Unavailable [phone] Kelsea Root RN Unavailable Unavailable Michelle Mendes APRN, COUNSELOR MANAGER Unavailable Chantelle Nix APRN, COUNSELOR MANAGER Unavailable Reason for Visit * Reason Comments Medication Refill Encounter Details Date Type Department Care Team (Late st Contact Info) Description 04/23/2021 [facility]ill [facility] - Gastroenterology - [place] [address] [place] [phone] Dani Garrett, DO [address] [address] Medication Refill Social History Tobacco Use Types Packs/Day Years Used Date Smoking Tobacco: Never Smokeless Tobacco: Former Alcohol Use Standard Drinks/Week Comments Not Currently 0 (1 standard drink = 0.6 oz pur e alcohol) Sexually Active Control Partners Comments Not Currently Comments No Sex and Gender Information Value Date Recorded Sex Assigned at Female 11/22/2023 11:58 AM CHILD LIFE SPECIALIST Legal Sex Female 11:34 PM CDT Gender Identity Female 11/22/2023 11:58 AM CHILD LIFE SPECIALIST Sexual Orientation Not on file Occupation Industry [...] encounter Miscellaneous Notes * Telephone Encounter - Narciso De La Rosa CMA - 04/26/2021 9:45 AM CDT Duplicate request documented in this encounter Plan of Treatment Upcoming Encounters Date Type Department Care Team (Late st Contact Info) Description 12/15/2024 3:30 PM CHILD LIFE SPECIALIST [facility] - Pulmonology & Sleep Medicine - [place] [address] [place] [address] Michelle Mendes APRN, DREW #2 [facility] [address] [place] [address] 01/30/2025 9:00 AM CDT Office Visit [facility] Medical [facility] - Endocrinology - [place] [address] [place] [address] Kirsten Niño MD #[address] [address] documented as of this encounter Visit Diagnoses Not on filedocumented in this encounter Additional Health Concerns Infection Onset Date Last Indicated Resolved Time COVID - 19 06/29/2022 06/29/2022 07/09/2022 12:1 6 AM CDT COVID - 19 11/20/2022 11/20/2022 11/24/2022 8:51 AM CHILD LIFE SPECIALIST COVID - 19 12/31/2022 12/31/2022 01/10/2023 12:1 8 AM CDT COVID - 19 Confirmed 12/31/2022 12/31/2022 023 12:17 AM CDT COVID - 19 06/01/2023 06/01/2023 06/01/2023 8:16 AM CDT COVID - 19 11/01/2023 11/01/2023 11/11/2023 12:1 6 AM CHILD LIFE SPECIALIST COVID - 19 06/25/2024 06/25/2024 06/25/2024 6:36 PM CDT Assessment Noted Time PHQ-9 Depression Total Score: 0 11/22/19 10:00 AM CHILD LIFE SPECIALIST documented as of this encounter Care Teams Senior Lead Software Engineer Relationship Specialty Start Date End Date Marco Woods MD #2 [facility] [address] [place] [address] PCP - General Family Medicine 11/22/17 Kirsten Niño MD #2 [facility] [address] [place] [address] Consulting Physician Endocrinology 07/17/22 Chin Burrows MD #2 [facility] [address] [place] [address] Consulting Physician General Surgery 11/22/22 Kelsea Root, JUWAN [place] Rn Neonatal Icu 06/15/23 08/26/23 Michelle Mendes APRN, COUNSELOR MANAGER #2 [facility] [address] [place] [address] Nurse Practitioner Advanced Practice Nurse 08/14/22 Chantelle Nix APRN, COUNSELOR MANAGER #2 [place] [address] Nurse Practitioner Advanced Practice Nurse 02/19/24 documented as of this encounter
--- OUTSIDE RECORDS SUMMARY | 2024-12-11 00:45 | XMS_ITS | Encounter Summary ---
Author Organization [facility] Address [address] [place] [address] Phone Care Team Providers Care Sack Keeper Name Role Phone Marco Woods MD Primary Care Provider [phone] Kirsten Niño MD Unavailable Chin Burrows MD Unavailable Kelsea Root RN Unavailable Unavailable Michelle Mendes APRN, IRON POURER Unavailable [phone] Chantelle Nix APRN, IRON POURER Unavailable Reason for Visit * Reason Onset Date Comments Medication Management 11/26/2022 Would like pain medication Encounter Details Date Type Department Care Team (Late st Contact Info) Description 11/26[facility]20[facility] [address] [place] [address] Marco Woods MD #2 [facility] [place] [address] Medication Management (Would like pain medication) Social History Tobacco Use Types Packs/Day Years Used Date Smoking Tobacco: Never Smokeless Tobacco: Never Alcohol Use Standard Drinks/Week Comments Not Currently 0 (1 standard drink = 0.6 oz pur e alcohol) Sexually Active Control Partners Comments Not Currently Comments No Sex and Gender Information Value Date Recorded Sex Assigned at Female 11/22/2023 11:58 AM ASPHALT MIXING MACHINE OPERATOR Legal Sex Female 11:34 PM CDT Gender Identity Female 11/22/2023 11:58 AM ASPHALT MIXING MACHINE OPERATOR Sexual Orientation Not on file Occupation Industry Job Start Date Job End Date disabled Not on file Not on file Not on file COVID-19 Exposure Response Date Recorded In the last 10 days, have yo u been in contact with someone who was confirmed or suspected to have Coronavirus/COVID-19? No / Unsure 11/29/2022 3:20 PM ASPHALT MIXING MACHINE OPERATOR documented as of this encounter Miscellaneous Notes * Telephone Encounter - Izzy Ozuna RN - 11/26/2022 10:37 AM CST S: Medication request B: Patient called while still being admitted in the hospital. States she will be discharged today and would like for Dr Woods to order her pain medication. States the hospital will not give her pain medication for home usage. R: information Patient was advised pain medication could not be ordered today. Patient disconnected from the phonecall before nurse could obtain any further information. ALT MIXING MACHINE OPERATOR documented in this encounter Plan of Treatment Upcoming Encounters Date Type Department Care Team (Late st Contact Info) Description 12/15/2024 3:30 PM ASPHALT MIXING MACHINE OPERATOR Office Visit [facility] - Pulmonology & Sleep Medicine - [place] [address] [place] [address] Michelle Mendes APRN, DREW #2 [facility] [address] [place] [address] 01/30/2025 9:00 AM CDT Office Visit [facility] Medical Group - Endocrinology - [place] [address] [place] [address] Kirsten Niño MD #2 [facility] [address] [place] [address] documented as of this encounter Visit Diagnoses Not on filedocumented in this encounter Additional Health Concerns Infection Onset Date Last Indicated Resolved Time COVID - 19 12/31/2022 12/31/2022 01/10/2023 12:1 8 AM CDT COVID - 19 Confirmed 12/31/2022 12/31/2022 023 12:17 AM CDT COVID - 19 06/01/2023 06/01/2023 06/01/2023 8:16 AM CDT COVID - 19 11/01/2023 11/01/2023 11/11/2023 12:1 6 AM ASPHALT MIXING MACHINE OPERATOR COVID - 19 06/25/2024 06/25/2024 06/25/2024 6:36 PM CDT Assessment Noted Time PHQ-9 Depression Total Score: 0 11/22/19 10:00 AM ASPHALT MIXING MACHINE OPERATOR documented as of this encounter Care Teams Sack Keeper Relationship Specialty Start Date End Date Marco Woods MD #2 [facility] [address] [place] [address] PCP - General Family Medicine 11/22/17 Kirsten Niño MD #2 [facility] [address] [place] [address] Consulting Physician Endocrinology 07/17/22 Chin Burrows MD #2 [facility] [address] [place] [address] Consulting Physician General Surgery 11/22/22 Kelsea Root RN [place] Senior Accounting Analyst 06/15/23 08/26/23 Michelle Mendes APRN, IRON POURER #2 [facility] [address] [place] [address] Nurse Practitioner Advanced Practice Nurse 08/14/22 Chantelle Nix APRN, IRON POURER #2 [place] [address] Nurse Practitioner Advanced Practice Nurse 02/19/24 documented as of this encounter
--- OUTSIDE RECORDS SUMMARY | 2024-12-11 00:45 | XMS_ITS | Encounter Summary ---
Author Organization [facility] Address [address] [place] [address] Phone Care Team Providers Care Inpatient Care Manager Rn Name Role Phone Marco Woods MD Primary Care Provider [phone] Kirsten Niño MD Unavailable Chin Burrows MD Unavailable Michelle Mendes APRN, SINGLE END SEWER Unavailable [phone] Chantelle Nix SYSTEMS CONSULTANT, SINGLE END SEWER Unavailable Reason for Visit * Reason Comments Medication Refill Encounter Details Date Type Department Care Team (Late st Contact Info) Description 12/26/2023 Refill [facility] - Family Medicine - [place] [address] [place] [address] Marco Woods MD [id number] [address] Medication Refill Social History Tobacco Use Types Packs/Day Years Used Date Smoking Tobacco: Never Smokeless Tobacco: Never Alcohol Use Standard Drinks/Week Comments Not Currently 0 (1 standard drink = 0.6 oz pur e alcohol) [facility] Utilities Answer Date Recorded In the [...] declined 11/28/2023 How often do you attend jewish or baptist serv ices? Patient declined 11/28/2023 Do you belong to any clubs o r organizations such as jewish groups, unions, fraternal or athletic groups, or [...] Total Score - Questions 1-9 18 10/24 [facility] Occupat ional Health - [...] place to sleep or slept in a halfway (including now)? Patient declined 11/28/2023 Education Answer Date Recorded What is the highest level of school you have completed or the highest degree you have received? 12th grade 04/03/2023 Sexually Active Control Partners Comments Not Currently Comments No Sex and Gender Information Value Date Recorded Sex Assigned at Female 11/22/2023 11:58 AM FOUNDRY ENGINEER Legal Sex Female 11:34 PM CDT Gender Identity Female 11/22/2023 11:58 AM FOUNDRY ENGINEER Sexual Orientation Not on file Occupation Industry Job Start Date Job End Date disabled Not on file Not on file Not on file documented as of this encounter Miscellaneous Notes * Telephone Encounter - Amada Orozco RN - 12/27/2023 11:05 AM CST Pt should be getting this from psych. Dr Galeana is a psychiatrist. DRY ENGINEER * Telephone Encounter - Amada Orozco RN - 12/27/2023 11:02 AM CST Images from the original note were not included. [place] Carbonate Dispensed Days Supply Quantity Provider Pharmacy LITHIUM CARBONATE ER 300 MG TBCR 11/29/2023 28 56 Tablet Maria Antonia Galeana MD [facility] -Alt... LITHIUM CARBONATE ER 300 MG TBCR 11/06/2023 28 56 Tablet Maria Antonia Galeana MD [facility] -Alt... DRY ENGINEER documented in this encounter Plan of Treatment Upcoming Encounters Date Type Department Care Team (Late st Contact Info) Description 12/15/2024 3:30 PM FOUNDRY ENGINEER [facility] - Pulmonology & Sleep Medicine [facility] #2 [place] [address] Michelle Mendes APRN, SINGLE END SEWER #2 [facility] [address] [place] [address] 01/30/2025 9:00 AM CDT Office Visit [facility] - Endocrinology - [place] [address] [place] [address] Kirsten Niño MD #[address] [address] documented as of this encounter Visit Diagnoses Not on filedocumented in this encounter Additional Health Concerns Infection Onset Date Last Indicated Resolved Time COVID - 19 06/25/2024 06/25/2024 06/25/2024 6:36 PM CDT Assessment Noted Time PHQ-9 Depression Total Score: 18 024 10:00 AM FOUNDRY ENGINEER documented as of this encounter Care Teams Inpatient Care Manager Rn Relationship Specialty Start Date End Date Marco Woods MD #2 [facility] [address] [place] [address] PCP - General Family Medicine 11/22/17 Kirsten Niño MD #[address] [phone] Consulting Physician Endocrinology 07/17/22 Chin Burrows MD #[address] [place] [address] Consulting Physician General Surgery 11/22/22 Michelle Mendes APRN, SINGLE END SEWER #2 [facility] [address] [place] [address] Nurse Practitioner Advanced Practice Nurse 08/14/22 Chantelle Nix APRN, SINGLE END SEWER #2 [place] [address] Nurse Practitioner Advanced Practice Nurse 02/19/24 documented as of this encounter
--- OUTSIDE RECORDS SUMMARY | 2024-12-11 00:45 | XMS_ITS | Encounter Summary ---
Author Organization [facility] Address [address] [place] [address] Phone Care Team Providers Care Contracts Manager Name Role Phone Marco Woods MD Primary Care Provider Kirsten Niño MD Unavailable Chin Burrows MD Unavailable [phone] Kelsea Root RN Unavailable Unavailable Michelle Mendes APRN, HEAVY EQUIPMENT SERVICE MANAGER Unavailable Chantelle Nix APRN, HEAVY EQUIPMENT SERVICE MANAGER Unavailable Reason for Visit * Reason Comments Medication Refill Encounter Details Date Type Department Care Team (Late st Contact Info) Description 12/16/2022 Refill [facility] [address] [place] [address] Marco Woods MD #2 [facility] [address] [place] [address] Medication Refill Social History Tobacco Use Types Packs/Day Years Used Date Smoking Tobacco: Never Smokeless Tobacco: Never Alcohol Use Standard Drinks/Week Comments Not Currently 0 (1 standard drink = 0.6 oz pur e alcohol) Sexually Active Control Partners Comments Not Currently Comments No Sex and Gender Information Value Date Recorded Sex Assigned at Female 11/22/2023 11:58 AM LASTER HAND Legal Sex Female 11:34 PM CDT Gender Identity Female 11/22/2023 11:58 AM LASTER HAND Sexual Orientation Not on file Occupation Industry Job Start Date Job End Date disabled Not on file Not on file Not on file COVID-19 Exposure Response Date Recorded In the last 10 days, have yo u been in contact with someone who was confirmed or suspected to have Coronavirus/COVID-19? No / Unsure 12/18/2022 9:05 AM LASTER HAND documented as of this encounter Miscellaneous Notes * Telephone Encounter - [place] Preciado RN - 12/19/2022 9:23 AM CST Duplicate request. ER HAND * Telephone Encounter - Celia Valles RN - 12/18/2022 2:00 PM LASTER HAND duplicate ER HAND documented in this encounter Plan of Treatment Upcoming Encounters Date Type Department Care Team (Late st Contact Info) Description 12/15/2024 3:30 PM LASTER HAND Office Visit [facility] - Pulmonology & Sleep Medicine - [place] [address] [place] [address] Michelle Mendes APRN, DREW #2 [facility] [address] [place] [address] 01/30/2025 9:00 AM CDT Office Visit [facility] Group - Endocrinology - [place] [address] [place] [address] Kirsten Niño MD #2 [facility] [address] [place] [address] documented as of this encounter Visit Diagnoses Diagnosis Dyspnea, unspecified type documented in this encounter Additional Health Concerns Infection Onset Date Last Indicated Resolved Time COVID - 19 12/31/2022 12/31/2022 01/10/2023 12:1 8 AM CDT COVID - 19 Confirmed 12/31/2022 12/31/2022 023 12:17 AM CDT COVID - 19 06/01/2023 06/01/2023 06/01/2023 8:16 AM CDT COVID - 19 11/01/2023 11/01/2023 11/11/2023 12:1 6 AM LASTER HAND COVID - 19 06/25/2024 06/25/2024 06/25/2024 6:36 PM CDT Assessment Noted Time PHQ-9 Depression Total Score: 0 11/22/19 10:00 AM LASTER HAND documented as of this encounter Care Teams Contracts Manager Relationship Specialty Start Date End Date Marco Woods MD #2 [facility] [address] [place] [address] PCP - General Family Medicine 11/22/17 Kirsten Niño MD #2 [facility] [address] [place] [address] Consulting Physician Endocrinology 07/17/22 Chin Burrows MD #2 [facility] [address] [place] [address] Consulting Physician General Surgery 11/22/22 Kelsea Root RN [place] Service Desk Team Lead 06/15/23 08/26/23 Michelle Mendes APRN, HEAVY EQUIPMENT SERVICE MANAGER #2 [facility] [address] [place] [address] Nurse Practitioner Advanced Practice Nurse 08/14/22 Chantelle Nix APRN, HEAVY EQUIPMENT SERVICE MANAGER #2 [place] [address] Nurse Practitioner Advanced Practice Nurse 02/19/24 documented as of this encounter
--- OUTSIDE RECORDS SUMMARY | 2024-12-11 00:45 | XMS_ITS | Encounter Summary ---
Author Organization [facility] Address [address] [place] [address] Phone Care Team Providers Care Engineering Department Chair Name Role Phone Marco Woods MD Primary Care Provider [phone] Kirsten Niño MD Unavailable Chin Burrows MD Unavailable Michelle Mendes APRN, NANNY BABYSITTER Unavailable Chantelle Nix RESTORER LACE AND TEXTILES, NANNY BABYSITTER Unavailable Reason for Visit * Reason Comments Medication Refill Encounter Details Date Type Department Care Team (Late st Contact Info) Description 01/01/2024 Refill [facility] Group - Family Medicine - [place] [address] [place] [phone] Marco Woods MD [id number] [address] Medication Refill Social History Tobacco Use Types Packs/Day Years Used Date Smoking Tobacco: Never Smokeless Tobacco: Never Alcohol Use Standard Drinks/Week Comments Not Currently 0 (1 standard drink = 0.6 oz pur e alcohol) [facility] Utilities Answer Date Recorded In the [...] How often do you attend confucianism or jehovah's witness serv ices? Patient declined 11/28/2023 Do you [...] Total Score - Questions 1-9 18 10/24 [facility] Occupat ional Health - [...] place to sleep or slept in a intermediate (including now)? Patient declined 11/28/2023 Education Answer Date Recorded What is the highest level of school you have completed or the highest degree you have received? 12th grade 04/03/2023 Sexually Active Control Partners Comments Not Currently Comments No Sex and Gender Information Value Date Recorded Sex Assigned at Female 11/22/2023 11:58 AM EVENT DECORATOR Legal Sex Female 11:34 PM CDT Gender Identity Female 11/22/2023 11:58 AM EVENT DECORATOR Sexual Orientation Not on file Occupation Industry Job Start Date Job End Date disabled Not on file Not on file Not on file documented as of this encounter Miscellaneous Notes * Telephone Encounter - Amada Orozco RN - 01/01/2024 2:40 PM CDT gned Yesterday (12/31/2023): Bfeuejpstyb-Jdokzcqct-Klvibq (Trelegy Ellipta) 100-62.5-25 MCG/ACT AEROSOL POWDER, BREATH ACTIVATED Sig: take 1 Puff by inhalation daily. Disp: 60 Each Refills: 3 Signed by: Michelle Mendes APRN, CNP documented in this encounter Plan of Treatment Upcoming Encounters Date Type Department Care Team (Late st Contact Info) Description 12/15/2024 3:30 PM EVENT DECORATOR Office Visit [facility] - Pulmonology & Sleep Medicine [facility] #[address] [place] [address] Michelle Mendes APRN, NANNY BABYSITTER #2 [facility] [address] [place] [address] 01/30/2025 9:00 AM CDT [facility] - Endocr[facility]ology - [place] [address] [place] [address] Kirsten Niño MD #[address] [address] documented as of this encounter Visit Diagnoses Not on filedocumented in this encounter Additional Health Concerns Infection Onset Date Last Indicated Resolved Time COVID - 19 06/25/2024 06/25/2024 06/25/2024 6:36 PM CDT Assessment Noted Time PHQ-9 Depression Total Score: 18 024 10:00 AM EVENT DECORATOR documented as of this encounter Care Teams Engineering Department Chair Relationship Specialty Start Date End Date Marco Woods MD #[address] [address] PCP - General Family Medicine 11/22/17 Kirsten Niño MD #[address] [address] Consulting Physician Endocrinology 07/17/22 Chin Burrows MD #[address] [address] Consulting Physician General Surgery 11/22/22 Michelle Mendes APRN, NANNY BABYSITTER #2 [facility] [address] [place] [address] Nurse Practitioner Advanced Practice Nurse 08/14/22 Chantelle Nix APRN, NANNY BABYSITTER #2 [place] [address] Nurse Practitioner Advanced Practice Nurse 02/19/24 documented as of this encounter
--- OUTSIDE RECORDS SUMMARY | 2024-12-11 00:46 | XMS_ITS | Encounter Summary ---
Author Organization [facility] Address [address] [place] [address] Phone Care Team Providers Care Car Painter Name Role Phone Marco Woods MD Primary Care Provider Kirsten Niño MD Unavailable Chin Burrows MD Unavailable [phone] Kelsea Root RN Unavailable Unavailable Michelle Mendes APRN, EXPERIMENTAL WORKER Unavailable Chantelle Nix APRN, EXPERIMENTAL WORKER Unavailable Encounter Details Date Type Department Care Team (Late st Contact Info) Description 01/03/2021 [facility] [address] [place] [address] Denise Arenas, DIGITAL IMAGER, EXPERIMENTAL WORKER [address] [facility] [place] [address] FPC use of drug (Primary Dx); Moderate depressed bipolar I disorder (HCC); Generalized anxiety disorder; Vitamin D deficiency; Hypertension, unspecified type; Hypothyroidism, unspecified type; Asthmatic bronchitis without complication, unspecified asthma severity, unspecified whether persistent; Obesity, unspecified classification, unspecified obesity type, unspecified whether serious comorbidity present; Dementia with behavioral disturbance, unspecified dementia type (HCC) Social History Tobacco Use Types Packs/Day Years Used Date Smoking Tobacco: Never Smokeless Tobacco: Former Alcohol Use Standard Drinks/Week Comments Not Currently 0 (1 standard drink = 0.6 oz pur e alcohol) Sexually Active Control Partners Comments Not Currently Comments No Sex and Gender Information Value Date Recorded Sex Assigned at Female 11/22/2023 11:58 AM PALM AND BACK FORGER Legal Sex Female 11:34 PM CDT Gender Identity Female 11/22/2023 11:58 AM PALM AND BACK FORGER Sexual Orientation Not on file Occupation Industry Job Start Date Job End Date disabled Not on file Not on file Not on file COVID-19 Exposure Response Date Recorded In the last month, have you been in contact with someone who was confirmed or suspected to have Coronavirus / COVID-19? No / Unsure 01/05/2021 6:21 AM CDT documented as of this encounter Plan of Treatment Upcoming Encounters Date Type Department Care Team (Late st Contact Info) Description 12/15/2024 3:30 PM PALM AND BACK FORGER [facility] [place] [address] [place] [address] Michelle Mendes APRN, EXPERIMENTAL WORKER #2 [facility] [address] [place] [address] 01/30/2025 9:00 AM CDT [facility] - End[facility]ology - [place] #2 [place] [address] Kirsten Niño MD #2 [facility] [address] [place] [address] documented as of this encounter Results * LITHIUM (01/05/2021 6:36 AM CDT) LITHIUM 0.7 0.6 - 1.2 mmol/L 01/05/2021 10:29 AM CDT [facility] Comment:Resulted from [facility]. Blood Venipuncture / Unknown 01/05/2021 6:36 AM CDT 01/05/2021 7:09 AM CDT us Denise Arenas APRN, DREW CHEMISTRY ORDERABLES Final Result [facility] #1 [place] [address] * (ABNORMAL) FOLIC ACID (FOLATE) (01/05/2021 6:36 AM CDT) [facility] FOLATE 19.6(H) 3.1 - 17.5 ng/mL 01/05/2021 8:08 AM CDT [facility] IS THE PATIENT REQUIRED TO BE FASTING? No 01/05/2021 8:08 AM CDT [facility] Blood Venipuncture / Unknown 01/05/2021 6:36 AM CDT 01/05/2021 7:09 AM CDT us Denise Arenas APRN, EXPERIMENTAL WORKER CHEMISTRY ORDERABLES Final Result Performing Organization Address City/[facility]/ZIP Co de Phone Number [facility] [address] [place] [address] * THYROXINE (T4) FREE (01/05/2021 6:36 AM CDT) [facility] T4 FREE 1.0 0.9 - 1.7 ng/dL 01/05/2021 7:56 AM CDT [facility] Blood Venipuncture / Unknown 01/05/2021 6:36 AM CDT 01/05/2021 7:09 AM CDT Denise Arenas APRN, EXPERIMENTAL WORKER CHEMISTRY ORDERABLES Final Result [facility] [address] [place] [address] * (ABNORMAL) LIPID PANEL (01/05/2021 6:36 AM CDT) CHOLESTEROL 214(H) <=200 mg/dL 01/05/2021 7:56 AM CDT [facility] TRIGLYCERIDES 144 <150 mg/dL 01/05/2021 7:56 AM CDT [facility] HDL CHOLESTEROL 73.5 >40 mg/dL 7:56 AM CDT [facility] LDL 112 5 - 130 mg/dL 01/05/2021 7:56 AM CDT [facility] VLDL 29 5 - 55 mg/dL 01/05/2021 7:56 AM CDT [facility] CHOL/HDL RATIO 2.9 0.0 - 4.4 01/05/2021 7:56 AM CDT [facility] NON-HDL CHOLESTEROL 140.5(H) <130 mg/dL 01/05/2021 7:56 AM CDT [facility] IS THE PATIENT REQUIRED TO BE FASTING? No 01/05/2021 7:56 AM CDT [facility] Blood Venipuncture / Unknown 01/05/2021 6:36 AM CDT 01/05/2021 7:09 AM CDT Denise Arenas DIGITAL IMAGER, EXPERIMENTAL WORKER CHEMISTRY ORDERABLES Final Result [facility] [address] [place] [address] * HEMOGLOBIN A1C W/ ESTIMATED GLUCOSE (01/05/2021 6:36 AM CDT) HGB-A1C 5.1 4.0 - 6.0 % 01/05/2021 7:24 AM CDT [facility] Est Average Glucose 99.7 mg/dL 01/05/2021 7:24 AM CDT [facility] Blood Venipuncture / Unknown 01/05/2021 6:36 AM CDT 01/05/2021 7:09 AM CDT Narrative [facility] - 01/05/2021 7:24 AM CDT HEMOGLOBIN A1C: DIABETIC PATIENTS: WELL-CONTROLLED: 6.2 - 7.0 INTERMEDIATE WELL-CONTROLLED: 7.0 - 9.0 POORLY-CONTROLLED: >9.0 us Denise Gisell Arenas DIGITAL IMAGER, EXPERIMENTAL WORKER CHEMISTRY ORDERABLES Final Result [facility] [address] [place] [address] documented in this encounter Visit Diagnoses Diagnosis FPC use of drug- Primary Encounter for long-term (current) use of other medications Moderate depressed bipolar I disorder (HCC) Bipolar I disorder, most recent episode (or current) depressed, moderate Generalized anxiety disorder Vitamin D deficiency Unspecified vitamin D deficiency Hypertension, unspecified type Hypothyroidism, unspecified type Asthmatic bronchitis without complication, unspecified asthma severity, unspecified whether persistent Obesity, unspecified classification, unspecified obesity type, unspecified whether serious comorbidity present Dementia with behavioral disturbance, unspecified dementia type documented in this encounter Additional Health Concerns Infection Onset Date Last Indicated Resolved Time COVID - 19 06/29/2022 06/29/2022 07/09/2022 12:1 6 AM CDT COVID - 19 11/20/2022 11/20/2022 11/24/2022 8:51 AM PALM AND BACK FORGER COVID - 19 12/31/2022 12/31/2022 01/10/2023 12:1 8 AM CDT COVID - 19 Confirmed 12/31/2022 12/31/2022 023 12:17 AM CDT COVID - 19 06/01/2023 06/01/2023 06/01/2023 8:16 AM CDT COVID - 19 11/01/2023 11/01/2023 11/11/2023 12:1 6 AM PALM AND BACK FORGER COVID - 19 06/25/2024 06/25/2024 06/25/2024 6:36 PM CDT Assessment Noted Time PHQ-9 Depression Total Score: 0 11/22/19 18 10:00 AM PALM AND BACK FORGER documented as of this encounter Care Teams Car Painter Relationship Specialty Start Date End Date Marco Woods MD #2 [facility] [place] [address] PCP - General Family Medicine 11/22/17 iKrsten Niño MD #2 [facility] [address] [place] [address] Consulting Physician Endocrinology 07/17/22 Chin Burrows MD #[address] [address] Consulting Physician General Surgery 11/22/22 Kelsea Root RN [place] Furnace Roaster 06/15/23 08/26/23 Michelle Mendes APRN, EXPERIMENTAL WORKER #2 [facility] [address] [place] [address] Nurse Practitioner Advanced Practice Nurse 08/14/22 Chantelle Nix APRN, EXPERIMENTAL WORKER #2 [place] [address] Nurse Practitioner Advanced Practice Nurse 02/19/24 documented as of this encounter
--- OUTSIDE RECORDS SUMMARY | 2024-12-11 00:46 | XMS_ITS | Encounter Summary ---
Author Organization [facility] Address [address] [place] [address] Phone Care Team Providers Care Tick Eradicator Name Role Phone Marco Woods MD Primary Care Provider [phone] Kirsten Niño MD Unavailable Chin Burrows MD Unavailable Kelsea Root RN Unavailable Unavailable Michelle Mendes APRN, CATERPILLAR DRIVER Unavailable Chantelle Nix APRN, CATERPILLAR DRIVER Unavailable Reason for Visit * Reason Comments Medication Refill Encounter Details Date Type Department Care Team (Late st Contact Info) Description 02/11/2023 Refill [facility] - Family Medicine [facility] [address] [place] [phone] Marco Woods MD [id number] [address] Medication Refill Social History Tobacco Use Types Packs/Day Years Used Date Smoking Tobacco: Never Smokeless Tobacco: Never Alcohol Use Standard Drinks/Week Comments Not Currently 0 (1 standard drink = 0.6 oz pur e alcohol) Sexually Active Control Partners Comments Not Currently Comments No Sex and Gender Information Value Date Recorded Sex Assigned at Female 11/22/2023 11:58 AM COMMUNITY DEVELOPMENT MANAGER Legal Sex Female 11:34 PM CDT Gender Identity Female 11/22/2023 11:58 AM COMMUNITY DEVELOPMENT MANAGER Sexual Orientation Not on file Occupation Industry Job Start Date Job End Date disabled Not on file Not on file Not on file COVID-19 Exposure Response Date Recorded In the last 10 days, have yo u been in contact with someone who was confirmed or suspected to have Coronavirus/COVID-19? No / Unsure 02/07/2023 1:19 PM CDT documented as of this encounter Miscellaneous Notes * Telephone Encounter - Lila Chaparro RN - 02/12/2023 8:30 AM CDT Medication failed the protocol, provider to review and approve the medication order if appropriate. Requested Prescriptions Pending Prescriptions Disp Refills cyclobenzaprine (FLEXERIL) 5 MG Tablet [Pharmacy Med Name: CYCLOBENZAPRINE 5MG TABLETS] 90 Tablet 1 Sig: TAKE 1 TABLET BY MOUTH THREE TIMES DAILY NEEDED FOR MUSCLE SPASMS Not Delegated - Muscle Relaxants Protocol Failed - 02/11/2023 6:02 AM Failed - This refill cannot be delegated Failed - Not delegated, patient not between 1 and 65 years of age Passed - Visit with relevant provider in past 12 months or upcoming 90 days Recent Visits Date Type Provider Dept 02/07/23 Office Visit Marco Woods MD [facility] 01/23/23 Office Visit Rebecca Liu APRN, CATERPILLAR DRIVER [facility] 12/05/22 Office Visit Marco Woods MD [facility] 10/25/22 Office Visit Marco Woods MD [facility] 08/29/22 Office Visit Ronald Shaffer APRN, [facility] 07/12/22 Office Visit Jany Hernandez PAC [facility] 06/23/22 Office Visit Marco Woods MD [facility] 05/19/22 Office Visit Marco Woods MD [facility] Showing recent visits within past 365 days and meeting all other requirements Future Appointments Date Type Provider Dept 04/26/23 Appointment Marco Woods MD [facility] Showing future appointments within next 90 days and meeting all other requirements documented in this encounter Plan of Treatment Upcoming Encounters Date Type Department Care Team (Late st Contact Info) Description 12/15/2024 3:30 PM COMMUNITY DEVELOPMENT MANAGER [facility] - Pulmonology & Sleep Medicine [facility] #2 [place] [address] Michelle Mendes APRN, DREW #2 [facility] [address] [place] [address] 01/30/2025 9:00 AM CDT Office Visit [facility] - Endocrinology - [place] #[address] [place] [address] Kirsten Niño MD #2 [facility] [address] [place] [address] documented as of this encounter Visit Diagnoses Not on filedocumented in this encounter Additional Health Concerns Infection Onset Date Last Indicated Resolved Time COVID - 19 06/01/2023 06/01/2023 06/01/2023 8:16 AM CDT COVID - 19 11/01/2023 11/01/2023 11/11/2023 12:1 6 AM COMMUNITY DEVELOPMENT MANAGER COVID - 19 06/25/2024 06/25/2024 06/25/2024 6:36 PM CDT Assessment Noted Time PHQ-9 Depression Total Score: 0 11/22/19 18 10:00 AM COMMUNITY DEVELOPMENT MANAGER documented as of this encounter Care Teams Tick Eradicator Relationship Specialty Start Date End Date Marco Woods MD #2 [facility] [address] [place] [address] PCP - General Family Medicine 11/22/17 Kirsten Niño MD #2 [facility] [address] [place] [address] Consulting Physician Endocrinology 07/17/22 Chin Burrows MD #2 [facility] [address] [place] [address] Consulting Physician General Surgery 11/22/22 Kelsea Root RN [place] Parent Educator 06/15/23 08/26/23 Michelle Mendes APRN, CATERPILLAR DRIVER #2 [facility] [address] [place] [address] Nurse Practitioner Advanced Practice Nurse 08/14/22 Chantelle Nix APRN, CATERPILLAR DRIVER #[address] [place] [address] Nurse Practitioner Advanced Practice Nurse 02/19/24 documented as of this encounter
--- OUTSIDE RECORDS SUMMARY | 2024-12-11 00:46 | XMS_ITS | Encounter Summary ---
Author Organization [facility] Address [address] [place] [address] Phone Care Team Providers Care Cigar Head Pegger Name Role Phone Marco Woods MD Primary Care Provider Kirsten Niño MD Unavailable Chin Burrows MD Unavailable [phone] Kelsea Root RN Unavailable Unavailable Michelle Mendes APRN, LOAN SERVICING REPRESENTATIVE Unavailable Chantelle Nix APRN, LOAN SERVICING REPRESENTATIVE Unavailable Reason for Visit * Reason Comments Medication Refill Encounter Details Date Type Department Care Team (Late st Contact Info) Description 12/26/2020 [facility] [address] [place] [address] Mirtha Steiner APRN, LOAN SERVICING REPRESENTATIVE #2 [facility] [place] [address] Medication Refill Social History Tobacco Use Types Packs/Day Years Used Date Smoking Tobacco: Never Smokeless Tobacco: Former Alcohol Use Standard Drinks/Week Comments Not Currently 0 (1 standard drink = 0.6 oz pur e alcohol) Sexually Active Control Partners Comments Not Currently Comments No Sex and Gender Information Value Date Recorded Sex Assigned at Female 11/22/2023 11:58 AM UNDERWATER WELDER Legal Sex Female 11:34 PM CDT Gender Identity Female 11/22/2023 11:58 AM UNDERWATER WELDER Sexual Orientation Not on file Occupation Industry Job Start Date Job End Date disabled Not on file Not on file Not on file COVID-19 Exposure Response Date Recorded In the last month, have you been in contact with someone who was confirmed or suspected to have Coronavirus / COVID-19? No / Unsure 12/27/2020 8:52 AM UNDERWATER WELDER documented as of this encounter Miscellaneous Notes * Telephone Encounter - Amada Orozco RN - 12/27/2020 12:09 PM CST Disp Refills Start End amLODIPine (NORVASC) 5 MG Tablet 90 Tab 3 11/16/2020 Sig - Route: Take 1 Tab by mouth daily. - Oral Sent to pharmacy as: amLODIPine Besylate 5 MG Oral Tablet (NORVASC) Class: E Prescribe E-Prescribing Status: Receipt confirmed by pharmacy (11/16/2020 10:27 AM UNDERWATER WELDER) amLODIPine (NORVASC) 5 MG Tablet [[id number]] 1027 Status: Active Ordering user: Marco Woods MD 11/16/20 1027 Authorized by: Marco Woods MD Frequency: Daily 11/16/20 - Until Discontinued Released by: Marco Woods MD 11/16/20 1027 Pharmacy [facility] #[id number] [place] documented in this encounter Plan of Treatment Upcoming Encounters Date Type Department Care Team (Late st Contact Info) Description 12/15/2024 3:30 PM UNDERWATER WELDER [facility] - Pulmonology & Sleep Medicine - [place] #[address] [place] [address] Michelle Mendes APRN, LOAN SERVICING REPRESENTATIVE #[address] [address] 01/30/2025 9:00 AM CDT [facility] - [place] #2 [place] [address] Kirsten Niño MD #2 [facility] [address] [place] [address] documented as of this encounter Visit Diagnoses Not on filedocumented in this encounter Additional Health Concerns Infection Onset Date Last Indicated Resolved Time COVID - 19 06/29/2022 06/29/2022 07/09/2022 12:1 6 AM CDT COVID - 19 11/20/2022 11/20/2022 11/24/2022 8:51 AM UNDERWATER WELDER COVID - 19 12/31/2022 12/31/2022 01/10/2023 12:1 8 AM CDT COVID - 19 Confirmed 12/31/2022 12/31/2022 023 12:17 AM CDT COVID - 19 06/01/2023 06/01/2023 06/01/2023 8:16 AM CDT COVID - 19 11/01/2023 11/01/2023 11/11/2023 12:1 6 AM UNDERWATER WELDER COVID - 19 06/25/2024 06/25/2024 06/25/2024 6:36 PM CDT Assessment Noted Time PHQ-9 Depression Total Score: 0 11/22/19 10:00 AM UNDERWATER WELDER documented as of this encounter Care Teams Cigar Head Pegger Relationship Specialty Start Date End Date Marco Woods MD #2 [facility] [address] [place] [address] PCP - General Family Medicine 11/22/17 Kirsten Niño MD #[address] [address] Consulting Physician Endocrinology 07/17/22 Chin Burrows MD #[address] [address] Consulting Physician General Surgery 11/22/22 Klesea Root, RN [place] Spa Supervisor 06/15/23 08/26/23 Michelel Mendes APRN, LOAN SERVICING REPRESENTATIVE #[address] [address] Nurse Practitioner Advanced Practice Nurse 08/14/22 Chantelle Nix APRN, LOAN SERVICING REPRESENTATIVE #2 [place] [address] Nurse Practitioner Advanced Practice Nurse 02/19/24 documented as of this encounter
--- OUTSIDE RECORDS SUMMARY | 2024-12-11 00:46 | XMS_ITS | Encounter Summary ---
Author Organization [facility] Address [address] [place] [address] Phone Care Team Providers Care Strategic Consultant Name Role Phone Marco Woods MD Primary Care Provider Kirsten Niño MD Unavailable Chin Burrows MD Unavailable [phone] Kelsea Root RN Unavailable Unavailable Michelle Mendes APRN, POULTRY FARMWORKER Unavailable [phone] Chantelle Nix APRN, POULTRY FARMWORKER Unavailable Reason for Visit * Reason Comments Medication Refill Encounter Details Date Type Department Care Team (Late st Contact Info) Description 05/27/2023 Refill [facility] - [place] #[address] [place] [phone] Marco Woods MD #[address] [address] Medication Refill Social History Tobacco Use Types [...] Sex Assigned at Female 11/22/2023 11:58 AM FULL TIME PARAMEDIC Legal Sex Female 11:34 PM CDT Gender Identity Female 11/22/2023 11:58 AM FULL TIME PARAMEDIC Sexual Orientation Not on file Occupation Industry Job Start Date Job End Date disabled Not on file Not on file Not on file COVID-19 Exposure Response Date Recorded In the last 10 days, have yo u been in contact with someone who was confirmed or suspected to have Coronavirus/COVID-19? No / Unsure 05/08/2023 11:36 AM CDT documented as of this encounter Miscellaneous Notes * Telephone Encounter - Lesly Danielle RN - 05/28/2023 9:56 AM CDT PDMP 05/01/23 30 day supply. Medication failed the protocol, provider to review and approve the medication order if appropriate. Requested Prescriptions Pending Prescriptions Disp Refills zolpidem (AMBIEN) 5 MG Tablet [Pharmacy Med Name: ZOLPIDEM 5MG TABLETS] 30 Tablet Sig: TAKE 1 TABLET BY MOUTH EVERY DAY AT BEDTIME NEEDED FOR SLEEP Not Delegated - Off Protocol Failed - 05/27/2023 3:25 AM Failed - This refill cannot be delegated Passed - Visit with relevant provider in past 12 months or upcoming 90 days Recent Visits Date Type Provider Dept 05/01/23 Office Visit Marco Woods MD [facility] 04/18/23 Office Visit Marco Woods MD [facility] 04/03/23 Office Visit Marco Woods MD [facility] 03/12/23 Office Visit Marco Woods MD [facility] 03/05/23 Office Visit Mirtha Steiner APRN, DREW [facility] 02/07/23 Office Visit Marco Woods MD [facility] 01/23/23 Office Visit Rebecca Liu APRN, DREW [facility] 12/05/22 Office Visit Marco Woods MD [facility] 10/25/22 Office Visit Marco Woods MD [facility] 08/29/22 Office Visit Ronald Shaffer APRN, POULTRY FARMWORKER [facility] Showing recent visits within past 365 days and meeting all other requirements Future Appointments Date Type Provider Dept 08/02/23 Appointment Marco Woods MD [facility] 08/07/23 Appointment Marco Woods MD [facility] Showing future appointments within next 90 days and meeting all other requirements documented in this encounter Plan of Treatment Upcoming Encounters Date Type Department Care Team (Late st Contact Info) Description 12/15/2024 3:30 PM FULL TIME PARAMEDIC Office Visit [facility] - Pulmonology & Sleep Medicine - [place] #2 [place] [address] Michelle Mendes APRN, DREW #2 [facility] [address] [place] [address] 01/30/2025 9:00 AM CDT Office Visit [facility] Medical [facility] - Endocrinology - [place] #2 [place] [address] Kirsten Niño MD #2 [facility] [address] [place] [address] documented as of this encounter Visit Diagnoses Diagnosis Primary insomnia Persistent disorder of initiating or maintaining sleep documented in this encounter Additional Health Concerns Infection Onset Date Last Indicated Resolved Time COVID - 19 06/01/2023 06/01/2023 06/01/2023 8:16 AM CDT COVID - 19 11/01/2023 11/01/2023 11/11/2023 12:1 6 AM FULL TIME PARAMEDIC COVID - 19 06/25/2024 06/25/2024 06/25/2024 6:36 PM CDT Assessment Noted Time PHQ-9 Depression Total Score: 0 11/22/19 18 10:00 AM FULL TIME PARAMEDIC documented as of this encounter Care Teams Strategic Consultant Relationship Specialty Start Date End Date Marco Woods MD #2 [facility] [address] [place] [address] PCP - General Family Medicine 11/22/17 Kirsten Niño MD #2 [facility] [address] [place] [address] Consulting Physician Endocrinology 07/17/22 Chin Burrows MD #2 [facility] [address] [place] [address] Consulting Physician General Surgery 11/22/22 Kelsea Root RN [place] Director Reactor Projects 06/15/23 08/26/23 Michelle Mendes APRN, POULTRY FARMWORKER #2 [facility] [address] [place] [address] Nurse Practitioner Advanced Practice Nurse 08/14/22 Chantelle Nix APRN, POULTRY FARMWORKER #2 [place] [address] Nurse Practitioner Advanced Practice Nurse 02/19/24 documented as of this encounter
--- OUTSIDE RECORDS SUMMARY | 2024-12-11 00:46 | XMS_ITS | Encounter Summary ---
Author Organization [facility] Address [address] [place] [address] Phone Care Team Providers Care Educational Resource Center Teacher Name Role Phone Marco Woods MD Primary Care Provider [phone] Kirsten Niño MD Unavailable Chin Burrows MD Unavailable Kelsea Root RN Unavailable Unavailable Michelle Mendes APRN, AMMONIA BOX TENDER Unavailable Chantelle Nix APRN, AMMONIA BOX TENDER Unavailable Reason for Visit * Reason Comments Medication Refill Encounter Details Date Type Department Care Team (Late st Contact Info) Description 03/30/2023 Refill [facility] Medical Group - Family Medicine - [place] #2 [place] [address] Mirtha Steiner APRN, AMMONIA BOX TENDER #2 [facility] [place] [address] Medication Refill Social History Tobacco Use Types Packs/Day Years Used Date Smoking Tobacco: Never Smokeless Tobacco: Never Alcohol Use Standard Drinks/Week Comments Not Currently 0 (1 standard drink = 0.6 oz pur e alcohol) Sexually Active Control Partners Comments Not Currently Comments No Sex and Gender Information Value Date Recorded Sex Assigned at Female 11/22/2023 11:58 AM REFRIGERATOR REPAIRMAN Legal Sex Female 11:34 PM CDT Gender Identity Female 11/22/2023 11:58 AM REFRIGERATOR REPAIRMAN Sexual Orientation Not on file Occupation Industry Job Start Date Job End Date disabled Not on file Not on file Not on file COVID-19 Exposure Response Date Recorded In the last 10 days, have yo u been in contact with someone who was confirmed or suspected to have Coronavirus/COVID-19? No / Unsure 03/27/2023 7:39 AM CDT documented as of this encounter Miscellaneous Notes * Telephone Encounter - Amada Orozco RN - 03/30/2023 5:15 PM CDT Medication warning Per nursing clinical judgement, provider to review and approve the medication(s) order(s) if appropriate. Requested Prescriptions Pending Prescriptions Disp Refills traZODone (DESYREL) 150 MG Tablet [Pharmacy Med Name: TRAZODONE 150MG (HUNDRED- FIFTY) TAB] 30 Tablet 0 Sig: TAKE 1 TABLET BY MOUTH EVERY NIGHT FOR SLEEP Serotonin Modulators (6 Month Refill Only) Protocol Passed - 03/30/2023 5:06 PM Passed - Visit with relevant provider in past 6 months or upcoming 90 days Recent Visits Date Type Provider Dept 03/12/23 Office Visit Marco Woods MD [facility] 03/05/23 Office Visit Mirtha Steiner APRN, [facility] 02/07/23 Office Visit Marco Woods MD [facility] 01/23/23 Office Visit Rebecca Liu APRN, [facility] [place] 12/05/22 Office Visit Marco Woods MD [facility] 10/25/22 Office Visit Marco Woods MD [facility] [place] Showing recent visits within past 182 days and meeting all other requirements Future Appointments Date Type Provider Dept 04/03/23 Appointment Marco Woods MD [facility] 04/26/23 Appointment Marco Woods MD [facility] [place] Showing future appointments within next 90 days and meeting all other requirements Passed - Has an encounter in the past 6 months with a depression or anxiety visit diagnosis Passed - No PRN Use for Trazodone Passed - Patient has established therapy with Serotonin Modulators for at least 6 months documented in this encounter Plan of Treatment Upcoming Encounters Date Type Department Care Team (Late st Contact Info) Description 12/15/2024 3:30 PM REFRIGERATOR REPAIRMAN Office Visit [facility] - Pulmonology & Sleep Medicine [facility] #2 [place] [address] Michelle Mendes APRN, AMMONIA BOX TENDER #2 [facility] [address] [place] [address] 01/30/2025 9:00 AM CDT Office Visit [facility] - Endocrinology - [place] [address] [place] [phone] Kirsten Niño MD #2 [facility] [address] [place] [address] documented as of this encounter Visit Diagnoses Diagnosis Bipolar 1 disorder (HCC) Bipolar I disorder, most recent episode (or current) unspecified Anxiety Anxiety state, unspecified documented in this encounter Additional Health Concerns Infection Onset Date Last Indicated Resolved Time COVID - 19 06/01/2023 06/01/2023 06/01/2023 8:16 AM CDT COVID - 19 11/01/2023 11/01/2023 11/11/2023 12:1 6 AM REFRIGERATOR REPAIRMAN COVID - 19 06/25/2024 06/25/2024 06/25/2024 6:36 PM CDT Assessment Noted Time PHQ-9 Depression Total Score: 0 11/22/19 10:00 AM REFRIGERATOR REPAIRMAN documented as of this encounter Care Teams Educational Resource Center Teacher Relationship Specialty Start Date End Date Marco Woods MD #2 [facility] [address] [place] [address] PCP - General Family Medicine 11/22/17 Kirsten Niño MD #2 [facility] [address] [place] [address] Consulting Physician Endocrinology 07/17/22 Chin Burrows MD #2 [facility] [address] [place] [address] Consulting Physician General Surgery 11/22/22 Kelsea Root RN [place] Shipping Point Inspector 06/15/23 08/26/23 Michelle Mendes APRN, AMMONIA BOX TENDER #[address] [facility] [facility] [address] [place] [address] Nurse Practitioner Advanced Practice Nurse 08/14/22 Chantelle Nix APRN, AMMONIA BOX TENDER [address]2 [place] [address] Nurse Practitioner Advanced Practice Nurse 02/19/24 documented as of this encounter
--- OUTSIDE RECORDS SUMMARY | 2024-12-11 00:46 | XMS_ITS | Encounter Summary ---
Author Organization [facility] Address [address] [place] [address] Phone Care Team Providers Care Solution Spec Name Role Phone Marco Woods MD Primary Care Provider [phone] iKrsten Niño MD Unavailable Chin Burrows MD Unavailable Michelle Mendes APRN, REVIEW APPRAISER Unavailable Chantelle Nix DIRECTOR REPORT, REVIEW APPRAISER Unavailable Reason for Visit * Reason Comments Medication Refill Encounter Details Date Type Department Care Team (Late st Contact Info) Description 03/11/2024 Refill [facility] Medical Group - Family Medicine - [place] [address] [place] [phone] Marco Woods MD [id number] [address] Medication Refill Social History Tobacco Use Types Packs/Day Years Used Date Smoking Tobacco: Never Smokeless Tobacco: Never Alcohol Use Standard Drinks/Week Comments Not Currently 0 (1 standard drink = 0.6 oz pur e alcohol) [facility] Utilities Answer Date Recorded In the past [...] declined 11/28/2023 How often do you attend tenriism or jehovah's witness serv ices? Patient declined 11/28/2023 Do you belong to any clubs o r organizations such as tenriism groups, unions, fraternal or athletic groups, or [...] Total Score - Questions 1-9 18 10/24 [facility] - Occupational [...] Sex Assigned at Female 11/22/2023 11:58 AM OIL BURNER Legal Sex Female 11:34 PM CDT Gender Identity Female 11/22/2023 11:58 AM OIL BURNER Sexual Orientation Not on file Occupation Industry Job Start Date Job End Date disabled Not on file Not on file Not on file documented as of this encounter Miscellaneous Notes * Telephone Encounter - Amada Orozco RN - 03/11/2024 9:01 AM CDT Medication(s) refilled and signed per [facility] Chronic Medication Refill Standing Order for Pediatricand Adult Patients. Requested Prescriptions Pending Prescriptions Disp Refills amLODIPine (NORVASC) 5 MG Tablet [Pharmacy Med Name: AMLODIPINE BESYLATE 5MG TABLETS] 90 Tablet 2 Sig: TAKE 1 TABLET BY MOUTH DAILY Calcium-Channel Blockers Protocol Passed - 03/11/2024 5:42 AM Passed - BP on record in the past year Clinician-entered: BP Readings from Last 3 Encounters: 03/07/24 129/54 02/21/24 130/66 02/19/24 132/60 Patient-entered: No data recorded Passed - Visit with relevant provider in past 12 months or upcoming 90 days Recent Visits Date Type Provider Dept 02/21/24 Office Visit Amor Pitt MD [facility] [place] 02/12/24 Office Visit Rebecca Liu APRN, REVIEW APPRAISER [facility] [place] 12/05/23 Office Visit Marco Woods MD [facility] 11/20/23 Office Visit Ronald Shaffer APRN, REVIEW APPRAISER [facility] [place] 10/10/23 Office Visit Rebecca Liu APRN, REVIEW APPRAISER [facility] [place] 08/24/23 Office Visit Ranjit Linder MD [facility] 08/02/23 Office Visit Marco Woods MD [facility] [place] 05/01/23 Office Visit Marco Woods MD [facility] 04/18/23 Office Visit Marco Woods MD [facility] 04/03/23 [facility] Showing recent visits within past 365 days and meeting all other requirements Future Appointments Date Type Provider Dept 03/12/24 Appointment Marco Woods MD [facility] Showing future appointments within next 90 days and meeting all other requirements documented in this encounter Plan of Treatment Upcoming Encounters Date Type Department Care Team (Late st Contact Info) Description 12/15/2024 3:30 PM OIL BURNER Office Visit [facility] Medical [facility] - Pulmonology & Sleep Medicine - [place] [address] [place] [address] Michelle Mendes APRN, REVIEW APPRAISER #2 [facility] [address] [place] [address] 01/30/2025 9:00 AM CDT Office Visit [facility] Medical [facility] - Endocrinology - [place] #2 [place] [address] Kirsten Niño MD #[address] [address] documented as of this encounter Visit Diagnoses Not on filedocumented in this encounter Additional Health Concerns Infection Onset Date Last Indicated Resolved Time COVID - 19 06/25/2024 06/25/2024 06/25/2024 6:36 PM CDT Assessment Noted Time PHQ-9 Depression Total Score: 18 024 10:00 AM OIL BURNER documented as of this encounter Care Teams Solution Spec Relationship Specialty Start Date End Date Marco Woods MD #2 [facility] [address] [place] [address] PCP - General Family Medicine 11/22/17 Kirsten Niño MD #2 [facility] [address] [place] [address] Consulting Physician Endocrinology 07/17/22 Chin Burrows MD #[address] [address] Consulting Physician General Surgery 11/22/22 Michelle Mendes APRN, REVIEW APPRAISER #2 [facility] [address] [place] [address] Nurse Practitioner Advanced Practice Nurse 08/14/22 Chantelle Nix APRN, REVIEW APPRAISER [address]2 [place] [address] Nurse Practitioner Advanced Practice Nurse 02/19/24 documented as of this encounter
--- OUTSIDE RECORDS SUMMARY | 2024-12-11 00:46 | XMS_ITS | Encounter Summary ---
Author Organization [facility] Address [address] [place] [address] Phone Care Team Providers Care Submersible Pilot Name Role Phone Marco Woods MD Primary Care Provider iKrsten Niño MD Unavailable Chin Burrows MD Unavailable Michelle Mendes APRN, NONFARM ANIMAL CARETAKER Unavailable Chantelle Nix APRN, NONFARM ANIMAL CARETAKER Unavailable Reason for Visit * Reason Comments Medication Refill Encounter Details Date Type Department Care Team (Late st Contact Info) Description 07/07/2024 Refill [facility] Medical Group - Gastroenterology - [place] [address] [place] [address] Chantelle Nix APRN, NONFARM ANIMAL CARETAKER #2 [place] [address] Medication Refill Social History Tobacco Use Types Packs/Day Years Used Date Smoking Tobacco: Never Smokeless Tobacco: Never Alcohol Use Standard Drinks/Week Comments Not Currently 0 (1 standard drink = 0.6 oz pur e alcohol) [facility] Utilities Answer Date Recorded In [...] declined 06/25/2024 How often do you attend jewish or latter-day serv ices? Patient declined 06/25/2024 Do you [...] Score - Questions 1-9 18 10/24 [facility] Occupat ional [facility] - Occupational Stress Questionnaire Answer [...] place to sleep or slept in a fpc (including now)? Patient declined 11/28/2023 Housing Stability [...] any time in the past 12 m [facility], were you homeless or living in a fpc (including now)? Patient unable to answer 06/25/2024 Education Answer Date Recorded What is the highest level of school you have completed or the highest degree you have received? 12th grade 04/03/2023 Sexually Active Control Partners Comments Not Currently Comments No Sex and Gender Information Value Date Recorded Sex Assigned at Female 11/22/2023 11:58 AM ASPHALT PAVING SUPERVISOR Legal Sex Female 11:34 PM CDT Gender Identity Female 11/22/2023 11:58 AM ASPHALT PAVING SUPERVISOR Sexual Orientation Not on file Occupation Industry Job Start Date Job End Date disabled Not on file Not on file Not on file documented as of this encounter Miscellaneous Notes * Telephone Encounter - Denise Honeycutt RN - 07/08/2024 8:32 AM CDT Medication refilled and signed per [facility] chronic medication standing order for pediatric and adult patients. documented in this encounter Plan of Treatment Upcoming Encounters Date Type Department Care Team (Late st Contact Info) Description 12/15/2024 3:30 PM ASPHALT PAVING SUPERVISOR [facility] - Pulmonology & Sleep Medicine [facility] #2 [place] [address] Michelle Mendes APRN, NONFARM ANIMAL CARETAKER #2 [facility] [address] [place] [address] 01/30/2025 9:00 AM CDT Office Visit [facility] - Endocrinology - [place] #2 [place] [address] Kirsten Niño MD #[address] [address] documented as of this encounter Visit Diagnoses Diagnosis Chronic constipation Unspecified constipation documented in this encounter Additional Health Concerns Assessment Noted Time PHQ-9 Depression Total Score: 18 024 10:00 AM ASPHALT PAVING SUPERVISOR documented as of this encounter Care Teams Submersible Pilot Relationship Specialty Start Date End Date Marco Woods MD #2 [facility] [address] [place] [address] PCP - General Family Medicine 11/22/17 Kirsten Niño MD #[address] [address] Consulting Physician Endocrinology 07/17/22 Chin Burrows MD #[address] [address] Consulting Physician General Surgery 11/22/22 Michelle Mendes APRN, NONFARM ANIMAL CARETAKER [address] [facility] [address] [address] Nurse Practitioner Advanced Practice Nurse 08/14/22 Chantelle Nix APRN, CNP #2 [facility] [address] Nurse Practitioner Advanced Practice Nurse 02/19/24 documented as of this encounter
--- OUTSIDE RECORDS SUMMARY | 2024-12-11 00:46 | XMS_ITS | Encounter Summary ---
Author Organization [facility] Address [address] [place] [address] Phone Care Team Providers Care Concrete Conveyor Operator Name Role Phone Marco Woods MD Primary Care Provider Kirsten Niño MD Unavailable Chin Burrows MD Unavailable [phone] Kelsea Root RN Unavailable Unavailable Michelle Mendes APRN, STRAIGHT LINE PRESS SETTER Unavailable Chantelle Nix APRN, STRAIGHT LINE PRESS SETTER Unavailable Encounter Details Date Type Department Care Team (Late st Contact Info) Description 06/05/2023 Telephone [facility] Med Surg [address] [address] Sister Elisabeth Gonzalez, RN [place] Social History Tobacco Use Types Packs/Day Years [...] Sex Assigned at Female 11/22/2023 11:58 AM FLUTE TEACHER Legal Sex Female 11:34 PM CDT Gender Identity Female 11/22/2023 11:58 AM FLUTE TEACHER Sexual Orientation Not on file Occupation Industry Job Start Date Job End Date disabled Not on file Not on file Not on file COVID-19 Exposure Response Date Recorded In the last 10 days, have yo u been in contact with someone who was confirmed or suspected to have Coronavirus/COVID-19? No / Unsure 06/08/2023 8:20 PM CDT documented as of this encounter Functional Status * Question Answer Date of Assessment Author Little interest or pleasure in doing things Not at all 06/08/2023 10:00 PM CDT Zee Parker RN Feeling down, depressed, or hopeless Not at all 06/08/2023 10:00 PM CDT Zee Parker RN * Over the past 2 weeks, how often have you been bothered by any of the following problems? Question Answer Date of Assessment Author Patient Health Questionnaire -2 Score 0 06/08/2023 10:00 PM CDT Zee Parker RN documented as of this encounter Plan of Treatment Upcoming Encounters Date Type Department Care Team (Late st Contact Info) Description 12/15/2024 3:30 PM FLUTE TEACHER Office Visit [facility] Medical Group - Pulmonology & Sleep Medicine - [place] #[address] [place] [address] Michelle Mendes APRN, DREW #2 [facility] [address] [place] [address] 01/30/2025 9:00 AM CDT Office Visit [facility] Medical Group - Endocrinology - [place] #[address] [place] [address] Kirsten Niño MD #2 [facility] [address] [place] [address] documented as of this encounter Visit Diagnoses Not on filedocumented in this encounter Additional Health Concerns Infection Onset Date Last Indicated Resolved Time COVID - 19 11/01/2023 11/01/2023 11/11/2023 12:1 6 AM FLUTE TEACHER COVID - 19 06/25/2024 06/25/2024 06/25/2024 6:36 PM CDT Assessment Noted Time PHQ-9 Depression Total Score: 0 11/22/19 18 10:00 AM FLUTE TEACHER documented as of this encounter Care Teams Concrete Conveyor Operator Relationship Specialty Start Date End Date Marco Woods MD #2 [facility] [address] [place] [address] PCP - General Family Medicine 11/22/17 Kirsten Niño MD #2 [facility] [address] [place] [address] Consulting Physician Endocrinology 07/17/22 Chin Burrows MD #[address] [address] Consulting Physician General Surgery 11/22/22 Kelsea Root, RN [place] Supervisor Mails 06/15/23 08/26/23 Michelle Mendes APRN, STRAIGHT LINE PRESS SETTER #2 [facility] [address] [place] [address] Nurse Practitioner Advanced Practice Nurse 08/14/22 Chantelle Nix APRN, STRAIGHT LINE PRESS SETTER #2 [place] [address] Nurse Practitioner Advanced Practice Nurse 02/19/24 documented as of this encounter
--- OUTSIDE RECORDS SUMMARY | 2024-12-11 00:46 | XMS_ITS | Encounter Summary ---
Author Organization [facility] Address [address] [place] [address] Phone Care Team Providers Care Director Global Development Name Role Phone Marco Woods MD Primary Care Provider [phone] Kirsten Niño MD Unavailable Chin Burrows MD Unavailable Kelsea Root RN Unavailable Unavailable Michelle Mendes APRN, JACQUARD LOOM CARPET WEAVER Unavailable [phone] Chantelle Nix APRN, JACQUARD LOOM CARPET WEAVER Unavailable Reason for Visit * Reason Comments Medication Refill Encounter Details Date Type Department Care Team (Late st Contact Info) Description 02/11/2022 Refill [facility] Medical Group - Pulmonology & Sleep Medicine - [place] [address] [place] [phone] Michelle Mendes APRN, JACQUARD LOOM CARPET WEAVER [address] [address] Medication Refill Social History Tobacco Use Types Packs/Day Years Used Date Smoking Tobacco: Never Smokeless Tobacco: Former Alcohol Use Standard Drinks/Week Comments Not Currently 0 (1 standard drink = 0.6 oz pur e alcohol) Sexually Active Control Partners Comments Not Currently Comments No Sex and Gender Information Value Date Recorded Sex Assigned at Female 11/22/2023 11:58 AM CAMERA TUNING ENGINEER Legal Sex Female 11:34 PM CDT Gender Identity Female 11/22/2023 11:58 AM CAMERA TUNING ENGINEER Sexual Orientation Not on file Occupation Industry Job Start Date Job End Date disabled Not on file Not on file Not on file COVID-19 Exposure Response Date Recorded In the last 10 days, have yo u been in contact with someone who was confirmed or suspected to have Coronavirus/COVID-19? No / Unsure 02/13/2022 7:56 AM CDT documented as of this encounter Miscellaneous Notes * Telephone Encounter - Gladys Lord RN - 02/13/2022 8:46 AM CDT Medication failed the protocol, provider to review and approve the medication order if appropriate. Requested Prescriptions Pending Prescriptions Disp Refills cetirizine (ZyrTEC) 10 MG Tablet [Pharmacy Med Name: CETIRIZINE 10MG TABLETS] 90 Tablet 3 Sig: Take 1 Tablet by mouth daily. Non-sedating Antihistamines Protocol Failed - 02/11/2022 5:01 PM Failed - Patient less than 65 years of age for Cetirizine or Levocetirizine Passed - Visit with relevant provider in past 12 months or upcoming 90 days Recent Visits Date Type Provider Dept 02/10/22 Office Visit Michelle Mendes APRN, DREW [facility] [place] [address] 01/10/22 Office Visit Marco Woods MD [facility] 11/11/21 Office Visit Michelle Mendes APRN, DREW [facility] [place] [address] 10/04/21 Office Visit Marco Woods MD [facility] 08/08/21 Office Visit Michelle Mendes APRN, CNP [facility] [place] [address] 06/29/21 Office Visit Marco Woods MD [facility] 04/04/21 Office Visit Michelle Mendes APRN, DREW [facility] [place] [address] 03/25/21 Office Visit Marco Woods MD [facility] 02/22/21 Office Visit Mraco Woods MD [facility] Showing recent visits within past 365 days and meeting all other requirements Future Appointments Date Type Provider Dept 04/19/22 Appointment Marco Woods MD [facility] Showing future appointments within next 90 days and meeting all other requirements documented in this encounter Plan of Treatment Upcoming Encounters Date Type Department Care Team (Late st Contact Info) Description 12/15/2024 3:30 PM CAMERA TUNING ENGINEER Office Visit [facility] - Pulmonology & Sleep Medicine - [place] #2 [place] [address] Michelle Mendes APRN, JACQUARD LOOM CARPET WEAVER #2 [facility] [address] [place] [address] 01/30/2025 9:00 AM CDT Office Visit [facility] Medical [facility] - Endocrinology - [place] #2 [place] [address] Kirsten Niño MD #2 [facility] [address] [place] [address] documented as of this encounter Visit Diagnoses Diagnosis PNAR (perennial non-allergic rhinitis) Chronic rhinitis documented in this encounter Additional Health Concerns Infection Onset Date Last Indicated Resolved Time COVID - 19 06/29/2022 06/29/2022 07/09/2022 12:1 6 AM CDT COVID - 19 11/20/2022 11/20/2022 11/24/2022 8:51 AM CAMERA TUNING ENGINEER COVID - 19 12/31/2022 12/31/2022 01/10/2023 12:1 8 AM CDT COVID - 19 Confirmed 12/31/2022 12/31/2022 023 12:17 AM CDT COVID - 19 06/01/2023 06/01/2023 06/01/2023 8:16 AM CDT COVID - 19 11/01/2023 11/01/2023 11/11/2023 12:1 6 AM CAMERA TUNING ENGINEER COVID - 19 06/25/2024 06/25/2024 06/25/2024 6:36 PM CDT Assessment Noted Time PHQ-9 Depression Total Score: 0 11/22/19 10:00 AM CAMERA TUNING ENGINEER documented as of this encounter Care Teams Director Global Development Relationship Specialty Start Date End Date Marco Woods MD #2 [facility] [address] [place] [address] PCP - General Family Medicine 11/22/17 Kirsten Niño MD #2 [facility] [address] [place] [address] Consulting Physician Endocrinology 07/17/22 Chin Burrows MD #2 [facility] [address] [place] [address] Consulting Physician General Surgery 11/22/22 Kelsea Root, JUWAN [place] Regional Sales Associate 06/15/23 08/26/23 Michelle Mendes APRN, JACQUARD LOOM CARPET WEAVER #2 [facility] [address] [place] [address] Nurse Practitioner Advanced Practice Nurse 08/14/22 Chantelle Nix APRN, JACQUARD LOOM CARPET WEAVER #2 [place] [address] Nurse Practitioner Advanced Practice Nurse 02/19/24 documented as of this encounter
--- OUTSIDE RECORDS SUMMARY | 2024-12-11 00:46 | XMS_ITS | Encounter Summary ---
Author Organization [facility] Address [address] [place] [address] Phone Care Team Providers Care Certified Medical Transcriptionist Name Role Phone Marco Woods MD Primary Care Provider Kirsten Niño MD Unavailable Chin Burrows MD Unavailable Michelle Mendes APRN, MOTOR HOME ELECTRICAL FOREMAN Unavailable Chantelle Nix APRN, MOTOR HOME ELECTRICAL FOREMAN Unavailable Reason for Visit * Reason Comments Medication Refill Encounter Details Date Type Department Care Team (Late st Contact Info) Description 05/10/2024 Refill [facility] - Pulmonology & Sleep Medicine - [place] [address] [place] [phone] Michelle Mendes APRN, MOTOR HOME ELECTRICAL FOREMAN #[address] [address] Medication Refill Social History Tobacco Use Types Packs/Day Years Used Date Smoking Tobacco: Never Smokeless Tobacco: Never Alcohol Use Standard Drinks/Week Comments Not Currently 0 (1 standard drink = 0.6 oz pur e alcohol) [facility] Utilities Answer Date Recorded In the past 12 months has [employer] electric, gas, oil, or water company threatened [...] declined 11/28/2023 How often do you attend religious or bahai serv ices? Patient declined 11/28/2023 Do you belong to any clubs o r organizations such as religious groups, unions, fraternal or athletic groups, or [...] Total Score - Questions 1-9 18 10/24 [facility] - Occupational Stress Questionnaire Answer [...] Assigned at Female 11/22/2023 11:58 AM COMMUNITY AFFAIRS MANAGER Legal Sex Female 11:34 PM CDT Gender Identity Female 11/22/2023 11:58 AM COMMUNITY AFFAIRS MANAGER Sexual Orientation Not on file Occupation Industry Job Start Date Job End Date disabled Not on file Not on file Not on file documented as of this encounter Miscellaneous Notes * Telephone Encounter - Geeta Lackey RN - 05/12/2024 8:11 AM CDT Patient needs appointment. Last appointment was 03/27/23 documented in this encounter Plan of Treatment Upcoming Encounters Date Type Department Care Team (Late st Contact Info) Description 12/15/2024 3:30 PM COMMUNITY AFFAIRS MANAGER Office Visit [facility] - Pulmonology & Sleep Medicine - [place] [address] [place] [address] Michelle Mendes, RECORDS CUSTODIAN, MOTOR HOME ELECTRICAL FOREMAN #[address] [address] 01/30/2025 9:00 AM CDT Office Visit [facility] - Endocrinology - [place] [address] [place] [address] Kirsten Niño MD #2 [facility] [address] [place] [address] documented as of this encounter Visit Diagnoses Not on filedocumented in this encounter Additional Health Concerns Infection Onset Date Last Indicated Resolved Time COVID - 19 06/25/2024 06/25/2024 06/25/2024 6:36 PM CDT Assessment Noted Time PHQ-9 Depression Total Score: 18 024 10:00 AM COMMUNITY AFFAIRS MANAGER documented as of this encounter Care Teams Certified Medical Transcriptionist Relationship Specialty Start Date End Date Marco Woods MD #2 [facility] [address] [place] [address] PCP - General Family Medicine 11/22/17 Kirsten Niño MD #[address] [address] Consulting Physician Endocrinology 07/17/22 Chin Burrows MD #[address] [address] Consulting Physician General Surgery 11/22/22 Michelle Mendes APRN, MOTOR HOME ELECTRICAL FOREMAN #2 [facility] [address] [place] [address] Nurse Practitioner Advanced Practice Nurse 08/14/22 Chantelle Nix APRN, MOTOR HOME ELECTRICAL FOREMAN #2 [place] [address] Nurse Practitioner Advanced Practice Nurse 02/19/24 documented as of this encounter
--- OUTSIDE RECORDS SUMMARY | 2024-12-11 00:46 | XMS_ITS | Encounter Summary ---
Author Organization [facility] Address [address] [place] [address] Phone Care Team Providers Care Reading Aide Name Role Phone Marco Woods MD Primary Care Provider Kirsten Niño MD Unavailable Chin Burrows MD Unavailable Kelsea Root RN Unavailable Unavailable Michelle Mendes APRN, ASSISTANT CENTER MANAGER Unavailable Chantelle Nix APRN, ASSISTANT CENTER MANAGER Unavailable Reason for Visit * Reason Comments Medication Refill Encounter Details Date Type Department Care Team (Late st Contact Info) Description 09/03/2022 [facility]ill [facility] [address] [place] [address] Kirsten Niño MD #[address] [address] Medication Refill Social History Tobacco Use Types Packs/Day Years Used Date Smoking Tobacco: Never Smokeless Tobacco: Former Alcohol Use Standard Drinks/Week Comments Not Currently 0 (1 standard drink = 0.6 oz pur e alcohol) Sexually Active Control Partners Comments Not Currently Comments No Sex and Gender Information Value Date Recorded Sex Assigned at Female 11/22/2023 11:58 AM EVENT COORDINATOR MARKETING AND SALES Legal Sex Female 11:34 PM CDT Gender Identity Female 11/22/2023 11:58 AM EVENT COORDINATOR MARKETING AND SALES Sexual Orientation Not on file Occupation Industry Job Start Date Job End Date disabled Not on file Not on file Not on file COVID-19 Exposure Response Date Recorded In the last 10 days, have yo u been in contact with someone who was confirmed or suspected to have Coronavirus/COVID-19? No / Unsure 08/31/2022 8:58 AM EVENT COORDINATOR MARKETING AND SALES documented as of this encounter Plan of Treatment Upcoming Encounters Date Type Department Care Team (Late st Contact Info) Description 12/15/2024 3:30 PM EVENT COORDINATOR MARKETING AND SALES Office Visit [facility] - Pulmonology & Sleep Medicine - [place] [address] [place] [address] Michelle Mendes APRN, DREW #2 [facility] [address] [place] [address] 01/30/2025 9:00 AM CDT Office Visit [facility] Medical [facility] - Endocrinology - [place] [address] [place] [address] Kirsten Niño MD #2 [facility] [address] [place] [address] documented as of this encounter Visit Diagnoses Not on filedocumented in this encounter Additional Health Concerns Infection Onset Date Last Indicated Resolved Time COVID - 19 11/20/2022 11/20/2022 11/24/2022 8:51 AM EVENT COORDINATOR MARKETING AND SALES COVID - 19 12/31/2022 12/31/2022 01/10/2023 12:1 8 AM CDT COVID - 19 Confirmed 12/31/2022 12/31/2022 023 12:17 AM CDT COVID - 19 06/01/2023 06/01/2023 06/01/2023 8:16 AM CDT COVID - 19 11/01/2023 11/01/2023 11/11/2023 12:1 6 AM EVENT COORDINATOR MARKETING AND SALES COVID - 19 06/25/2024 06/25/2024 06/25/2024 6:36 PM CDT Assessment Noted Time PHQ-9 Depression Total Score: 0 11/22/19 10:00 AM EVENT COORDINATOR MARKETING AND SALES documented as of this encounter Care Teams Reading Aide Relationship Specialty Start Date End Date Marco Woods MD #2 [facility] [address] [place] [address] PCP - General Family Medicine 11/22/17 Kirsten Niño MD #2 [facility] [address] [place] [address] Consulting Physician Endocrinology 07/17/22 Chin Burrows MD #2 [facility] [address] [place] [address] Consulting Physician General Surgery 11/22/22 Kelsea Root, JUWAN [place] Cane Furniture Maker 06/15/23 08/26/23 Michelle Mendes APRN, ASSISTANT CENTER MANAGER #2 [facility] [address] [place] [address] Nurse Practitioner Advanced Practice Nurse 08/14/22 Chantelle Nix APRN, ASSISTANT CENTER MANAGER #[address] [place] [address] Nurse Practitioner Advanced Practice Nurse 02/19/24 documented as of this encounter
--- OUTSIDE RECORDS SUMMARY | 2024-12-11 00:46 | XMS_ITS | Encounter Summary ---
Author Organization [facility] Address [address] [place] [address] Phone Care Team Providers Care Pump Assembler Name Role Phone Marco Woods MD Primary Care Provider [phone] Kirsten Niño MD Unavailable Chin Burrows MD Unavailable [phone] Michelle Mendes APRN, SOAP GRINDER Unavailable Chantelle Nix FOOTBALL PAD REPAIRER, SOAP GRINDER Unavailable Reason for Visit * Reason Comments Medication Refill Encounter Details Date Type Department Care Team (Late st Contact Info) Description 04/04/2024 Refill [facility] Group - Family Medicine - [place] [address] [place] [phone] Marco Woods MD [address] [address] Medication Refill Social History Tobacco Use Types Packs/Day Years Used Date Smoking Tobacco: Never Smokeless Tobacco: Never Alcohol Use Standard Drinks/Week Comments Not Currently 0 (1 standard drink = 0.6 oz pur e alcohol) [facility] Utilities Answer Date Recorded In [...] How often do you attend tenriism or baptist serv ices? Patient declined 11/28/2023 [...] Total Score - Questions 1-9 18 10/24 [facility] - Occupational [...] Sex Assigned at Female 11/22/2023 11:58 AM SAFETY RELIEF VALVE TECHNICIAN Legal Sex Female 11:34 PM CDT Gender Identity Female 11/22/2023 11:58 AM SAFETY RELIEF VALVE TECHNICIAN Sexual Orientation Not on file Occupation Industry Job Start Date Job End Date disabled Not on file Not on file Not on file documented as of this encounter Miscellaneous Notes * Telephone Encounter - Amada Orozco RN - 04/04/2024 10:31 AM CDT Medication failed the protocol, provider to review and approve the medication order if appropriate. Requested Prescriptions Pending Prescriptions Disp Refills hydrOXYzine (ATARAX) 25 MG Tablet [Pharmacy Med Name: HYDROXYZINE HCL 25MG TABS (WHITE)] 90 Tablet 0 Sig: Take 1 Tablet by mouth every 6 hours as needed for Itching. Not Delegated - Off Protocol Failed - 04/04/2024 1:23 AM Failed - This refill cannot be delegated Passed - Visit with relevant provider in past 12 months or upcoming 90 days Recent Visits Date Type Provider Dept 03/27/24 Office Visit Mirtha Steiner APRN, SOAP GRINDER [facility] [place] 03/12/24 Office Visit Marco Woods MD [facility] [place] 02/21/24 Office Visit Amor Pitt MD [facility] 02/12/24 Office Visit Rebecca Liu APRN, [facility] 12/05/23 Office Visit Marco Woods MD [facility] [place] 11/20/23 Office Visit Ronald Shaffer APRN, [facility] 10/10/23 Office Visit Rebecca Liu APRN, [facility] 08/24/23 Office Visit Ranjit Linder MD [facility] 08/02/23 Office Visit Marco Woods MD [facility] [place] 05/01/23 Office Visit Marco Woods MD [facility] Showing recent visits within past 365 days and meeting all other requirements Future Appointments Date Type Provider Dept 04/09/24 Appointment Marco Woods MD [facility] Showing future appointments within next 90 days and meeting all other requirements documented in this encounter Plan of Treatment Upcoming Encounters Date Type Department Care Team (Late st Contact Info) Description 12/15/2024 3:30 PM SAFETY RELIEF VALVE TECHNICIAN Office Visit [facility] - Pulmonology & Sleep Medicine - [place] [address] [place] [address] Mihcelle Mendes APRN, SOAP GRINDER #2 [facility] [address] [place] [address] 01/30/2025 9:00 AM CDT Office Visit [facility] Medical [facility] - Endocrinology - [place] [address] [place] [phone] Kirsten Niño MD #2 [facility] [address] [place] [address] documented as of this encounter Visit Diagnoses Not on filedocumented in this encounter Additional Health Concerns Infection Onset Date Last Indicated Resolved Time COVID - 19 06/25/2024 06/25/2024 06/25/2024 6:36 PM CDT Assessment Noted Time PHQ-9 Depression Total Score: 18 024 10:00 AM SAFETY RELIEF VALVE TECHNICIAN documented as of this encounter Care Teams Pump Assembler Relationship Specialty Start Date End Date Marco Woods MD #2 [facility] [address] [place] [address] PCP - General Family Medicine 11/22/17 Kirsten Niño MD #2 [facility] [address] [place] [address] Consulting Physician Endocrinology 07/17/22 Chin Burrows MD #2 [facility] [address] [place] [address] Consulting Physician General Surgery 11/22/22 Michelle Mendes APRN, SOAP GRINDER #2 [facility] [address] [place] [address] Nurse Practitioner Advanced Practice Nurse 08/14/22 Chantelle Nix APRN, SOAP GRINDER #[address] [place] [address] Nurse Practitioner Advanced Practice Nurse 02/19/24 documented as of this encounter
--- OUTSIDE RECORDS SUMMARY | 2024-12-11 00:46 | XMS_ITS | Encounter Summary ---
Author Organization [facility] Address [address] [place] [address] Phone Care Team Providers Care Physical Anthropologist Name Role Phone Marco Woods MD Primary Care Provider Kirsten Niño MD Unavailable Chin Burrows MD Unavailable [phone] Kelsea Root RN Unavailable Unavailable Michelle Mendes APRN, GENERATION MANAGER Unavailable [phone] Chantelle Nix APRN, GENERATION MANAGER Unavailable Reason for Visit * Reason Onset Date Comments Medication Management 07/24/2022 Encounter Details Date Type Department Care Team (Late st Contact Info) Description 07/24/2022 Nurse Triage [facility] [address] [place] [address] Marco Woods MD #2 [facility] [place] [address] Medication Management Social History Tobacco Use Types Packs/Day Years Used Date Smoking Tobacco: Never Smokeless Tobacco: Former Alcohol Use Standard Drinks/Week Comments Not Currently 0 (1 standard drink = 0.6 oz pur e alcohol) Sexually Active Control Partners Comments Not Currently Comments No Sex and Gender Information Value Date Recorded Sex Assigned at Female 11/22/2023 11:58 AM UPHOLSTERED GOODS CRAFTER Legal Sex Female 11:34 PM CDT Gender Identity Female 11/22/2023 11:58 AM UPHOLSTERED GOODS CRAFTER Sexual Orientation Not on file Occupation Industry Job Start Date Job End Date disabled Not on file Not on file Not on file COVID-19 Exposure Response Date Recorded In the last 10 days, have yo u been in contact with someone who was confirmed or suspected to have Coronavirus/COVID-19? No / Unsure 07/26/2022 6:04 AM CDT documented as of this encounter Plan of Treatment Upcoming Encounters Date Type Department Care Team (Late st Contact Info) Description 12/15/2024 3:30 PM UPHOLSTERED GOODS CRAFTER Office Visit [facility] - Pulmonology & Sleep Medicine [facility] #[address] [place] [address] Michelle Mendes APRN, DREW #2 [facility] [address] [place] [address] 01/30/2025 9:00 AM CDT Office Visit [facility] Medical [facility] - Endocrinology - [place] #[address] [place] [address] Kirsten Niño MD #2 [facility] [address] [place] [address] documented as of this encounter Visit Diagnoses Not on filedocumented in this encounter Additional Health Concerns Infection Onset Date Last Indicated Resolved Time COVID - 19 11/20/2022 11/20/2022 11/24/2022 8:51 AM UPHOLSTERED GOODS CRAFTER COVID - 19 12/31/2022 12/31/2022 01/10/2023 12:1 8 AM CDT COVID - 19 Confirmed 12/31/2022 12/31/2022 023 12:17 AM CDT COVID - 19 06/01/2023 06/01/2023 06/01/2023 8:16 AM CDT COVID - 19 11/01/2023 11/01/2023 11/11/2023 12:1 6 AM UPHOLSTERED GOODS CRAFTER COVID - 19 06/25/2024 06/25/2024 06/25/2024 6:36 PM CDT Assessment Noted Time PHQ-9 Depression Total Score: 0 11/22/19 10:00 AM UPHOLSTERED GOODS CRAFTER documented as of this encounter Care Teams Physical Anthropologist Relationship Specialty Start Date End Date Marco Woods MD #2 [facility] [address] [place] [address] PCP - General Family Medicine 11/22/17 Kirsten Niño MD #2 [facility] [address] [place] [address] Consulting Physician Endocrinology 07/17/22 Chin Burrows MD #2 [facility] [address] [place] [address] Consulting Physician General Surgery 11/22/22 Kelsea Root, RN [place] Outside Deliverer 06/15/23 08/26/23 Michelle Mendes APRN, GENERATION MANAGER #2 [facility] [address] [place] [address] Nurse Practitioner Advanced Practice Nurse 08/14/22 Chantelle Nix APRN, GENERATION MANAGER #[address] [place] [address] Nurse Practitioner Advanced Practice Nurse 02/19/24 documented as of this encounter
--- OUTSIDE RECORDS SUMMARY | 2024-12-11 00:46 | XMS_ITS | Encounter Summary ---
Author Organization [facility] Address [address] [place] [address] Phone Care Team Providers Care Veneer Layer Name Role Phone Marco Woods MD Primary Care Provider [phone] Kirsten Niño MD Unavailable Chin Burrows MD Unavailable [phone] Kelsea Root RN Unavailable Unavailable Michelle Mendes APRN, POLICE JUDGE Unavailable [phone] Chantelle Nix APRN, POLICE JUDGE Unavailable Reason for Visit * Reason Comments Medication Refill Encounter Details Date Type Department Care Team (Late st Contact Info) Description 05/08/2023 [facility]ill [facility] Medicine - [place] [address] [place] [phone] Marco Woods MD [address] [address] Medication Refill Social History Tobacco Use Types [...] Sex Assigned at Female 11/22/2023 11:58 AM REGIONAL EDUCATION COORDINATOR Legal Sex Female 11:34 PM CDT Gender Identity Female 11/22/2023 11:58 AM REGIONAL EDUCATION COORDINATOR Sexual Orientation Not on file Occupation Industry [...] encounter Miscellaneous Notes * Telephone Encounter - Mirtha Steiner APRN, CNP - 05/10/2023 10:28 PM CDT [place]ICY DIRECT[place] reviewed, UDS reviewed. Approved * Telephone Encounter - Lesly Danielle RN - 05/09/2023 3:10 PM CDT PDMP 04/19/23 20 day supply Medication failed the protocol, provider to review and approve the medication order if appropriate. Requested Prescriptions Pending Prescriptions Disp Refills ALPRAZolam (XANAX) 1 MG Tablet [Pharmacy Med Name: ALPRAZOLAM 1MG TABLETS] 60 Tablet 0 Sig: TAKE 1 TABLET BY MOUTH THREE TIMES DAILY NEEDED FOR ANXIETY Not Delegated - Benzodiazepines Protocol Failed - 05/08/2023 3:23 PM Failed - This refill cannot be delegated [...] [place] 03/05/23 Office Visit Mirtha Steiner APRN, CNP [facility] 02/07/23 Office Visit Marco Woods MD [facility] [place] 01/23/23 Office Visit Rebecca Liu APRN, POLICE JUDGE [facility] 12/05/22 Office Visit [facility] MD [facility] 10/25/22 Office Visit Marco Woods MD [facility] 08/29/22 Office Visit Ronald Shaffer, MADDY, [facility] Showing recent visits within past 365 days and meeting all other requirements Future Appointments Date Type Provider Dept 08/02/23 Appointment Marco Woods MD [facility] 08/07/23 Appointment Marco Woods MD [facility] Showing future appointments within next 90 days and meeting all other requirements documented in this encounter Plan of Treatment Upcoming Encounters Date Type Department Care Team (Late st Contact Info) Description 12/15/2024 3:30 PM REGIONAL EDUCATION COORDINATOR Office Visit [facility] - Pulmonology & Sleep Medicine - [place] [address] [place] [address] Michelle Mednes APRN, POLICE JUDGE #2 [facility] [address] [place] [address] 01/30/2025 9:00 AM CDT Office Visit [facility] - Endocrinology - [place] #2 [facility] [place] [address] Kirsten Niño MD #2 [facility] [address] [place] [address] documented as of this encounter Visit Diagnoses Diagnosis Anxiety Anxiety state, unspecified documented in this encounter Additional Health Concerns Infection Onset Date Last Indicated Resolved Time COVID - 19 06/01/2023 06/01/2023 06/01/2023 8:16 AM CDT COVID - 19 11/01/2023 11/01/2023 11/11/2023 12:1 6 AM REGIONAL EDUCATION COORDINATOR COVID - 19 06/25/2024 06/25/2024 06/25/2024 6:36 PM CDT Assessment Noted Time PHQ-9 Depression Total Score: 0 11/22/19 10:00 AM REGIONAL EDUCATION COORDINATOR documented as of this encounter Care Teams Veneer Layer Relationship Specialty Start Date End Date Marco Woods MD #2 [facility] [address] [place] [address] PCP - General Family Medicine 11/22/17 Kirsten Niño MD #2 [facility] [address] [place] [address] Consulting Physician Endocrinology 07/17/22 Chin Burrows MD #2 [facility] [address] [place] [address] Consulting Physician General Surgery 11/22/22 Kelsea Root RN [place] Education Administrator 06/15/23 08/26/23 Michelle Mendes APRN, POLICE JUDGE #2 [facility] [address] [place] [address] Nurse Practitioner Advanced Practice Nurse 08/14/22 Chantelle Nix APRN, POLICE JUDGE #[address] [place] [address] Nurse Practitioner Advanced Practice Nurse 02/19/24 documented as of this encounter
--- OUTSIDE RECORDS SUMMARY | 2024-12-11 00:46 | XMS_ITS | Encounter Summary ---
Author Organization [facility] Address [address] [place] [address] Phone Care Team Providers Care Airconditioning Engineer Name Role Phone Marco Woods MD Primary Care Provider [phone] Kirsten Niño MD Unavailable Chin Burrows MD Unavailable [phone] Kelsea Root RN Unavailable Unavailable Michelle Mendes APRN, SUPERVISOR FACEPIECE LINE Unavailable [phone] Chantelle Nix APRN, SUPERVISOR FACEPIECE LINE Unavailable Reason for Visit * Reason Comments Medication Refill Encounter Details Date Type Department Care Team (Late st Contact Info) Description 02/01/2023 [facility]ill [facility] - [place] #2 [place] [phone] Deanna Leavitt, [facility] #2 [place] [address] Medication Refill Social History Tobacco Use Types Packs/Day Years Used Date Smoking Tobacco: Never Smokeless Tobacco: Never Alcohol Use Standard Drinks/Week Comments Not Currently 0 (1 standard drink = 0.6 oz pur e alcohol) Sexually Active Control Partners Comments Not Currently Comments No Sex and Gender Information Value Date Recorded Sex Assigned at Female 11/22/2023 11:58 AM SUPERINTENDENT TRACK Legal Sex Female 11:34 PM CDT Gender Identity Female 11/22/2023 11:58 AM SUPERINTENDENT TRACK Sexual Orientation Not on file Occupation Industry Job Start Date Job End Date disabled Not on file Not on file Not on file COVID-19 Exposure Response Date Recorded In the last 10 days, have yo u been in contact with someone who was confirmed or suspected to have Coronavirus/COVID-19? No / Unsure 01/23/2023 8:23 AM CDT documented as of this encounter Miscellaneous Notes * Telephone Encounter - Denise Honeycutt RN - 02/01/2023 2:05 PM CDT Patient calling and checking on dexilant refill below. Please see med refill below. * Telephone Encounter - Denise Honeycutt RN - 02/01/2023 9:40 AM CDT Pharmacy requesting refill of: Requested Prescriptions Pending Prescriptions Disp Refills ??? Dexlansoprazole 60 MG CAPSULE DELAYED RELEASE [Pharmacy Med Name: DEXLANSOPRAZOLE 60MG DR CAPSULES] 90 Capsule 3 Sig: TAKE 1 CAPSULE BY MOUTH EVERY MORNING 30 MINUTES BEFORE A MEAL WITH PROTEIN Last fill: 11/09/2021 Patients last OV with GI: 08/28/2022 Next Office Visit with GI: 03/01/2023. Medication passed protocol. Routing to provider for review due to previous provider no longer with office. documented in this encounter Plan of Treatment Upcoming Encounters Date Type Department Care Team (Late st Contact Info) Description 12/15/2024 3:30 PM SUPERINTENDENT TRACK [facility] - [place] [address] [place] [address] Michelle Mendes APRN, SUPERVISOR FACEPIECE LINE #[address] [address] 01/30/2025 9:00 AM CDT Office Visit [facility] End[facility] - [place] [address]2 [place] [address] Kirsten Niño MD #[address] [address] documented as of this encounter Visit Diagnoses Diagnosis Gastroesophageal reflux disease without esophagitis Esophageal reflux documented in this encounter Additional Health Concerns Infection Onset Date Last Indicated Resolved Time COVID - 19 06/01/2023 06/01/2023 06/01/2023 8:16 AM CDT COVID - 11/01/2023 11/01/2023 11/11/2023 12:1 6 AM SUPERINTENDENT TRACK COVID - 06/25/2024 06/25/2024 06/25/2024 6:36 PM CDT Assessment Noted Time PHQ-9 Depression Total Score: 0 11/22/19 10:00 AM SUPERINTENDENT TRACK documented as of this encounter Care Teams Airconditioning Engineer Relationship Specialty Start Date End Date Marco Woods MD #[address] [address] PCP - General Family Medicine 11/22/17 Kirsten Niño MD #[address] [address] Consulting Physician Endocrinology 07/17/22 Chin Burrows MD #[address] [address] Consulting Physician General Surgery 11/22/22 Kelsea Root RN [place] Sports Equipment Supervisor 06/15/23 08/26/23 Michelle Mendes APRN, SUPERVISOR FACEPIECE LINE #2 [facility] [address] [place] [address] Nurse Practitioner Advanced Practice Nurse 08/14/22 Chantelle Nix APRN, SUPERVISOR FACEPIECE LINE #2 [place] [address] Nurse Practitioner Advanced Practice Nurse 02/19/24 documented as of this encounter
--- OUTSIDE RECORDS SUMMARY | 2024-12-11 00:46 | XMS_ITS | Encounter Summary ---
Author Organization [facility] Address [address] [place] [address] Phone Care Team Providers Care Customer Experience Leader Name Role Phone Marco Woods MD Primary Care Provider [phone] Kirsten Niño MD Unavailable Chin Burrows MD Unavailable Kelsea Root RN Unavailable Unavailable Michelle Mendes APRN, SIDE PANEL HANGER Unavailable [phone] Chantelle Nix APRN, SIDE PANEL HANGER Unavailable Reason for Visit * Reason Comments Medication Refill Encounter Details Date Type Department Care Team (Late st Contact Info) Description 05/09/2023 Refill [facility] - Family Medicine - [place] #2 [place] [phone] Marco Woods MD [id number] [address] Medication Refill Social History Tobacco Use Types [...] Sex Assigned at Female 11/22/2023 11:58 AM DONOR SERVICES MANAGER Legal Sex Female 11:34 PM CDT Gender Identity Female 11/22/2023 11:58 AM DONOR SERVICES MANAGER Sexual Orientation Not on file Occupation [...] Telephone Encounter - Amada Orozco RN - 05/11/2023 7:12 AM CDT Name from pharmacy: ALPRAZOLAM 1MG TABLETS Will file in chart as: ALPRAZolam (XANAX) 1 MG Tablet The original prescription was reordered on 05/10/2023 by Mirtha Steiner APRN, SIDE PANEL HANGER. * Telephone Encounter - Amada Orozco RN - 05/10/2023 1:50 PM CDT duplicate * Telephone Encounter - Lesly Danielle RN - 05/09/2023 3:08 PM CDT Duplicate request documented in this encounter Plan of Treatment Upcoming Encounters Date Type Department Care Team (Late st Contact Info) Description 12/15/2024 3:30 PM DONOR SERVICES MANAGER Office Visit [facility] - Pulmonology & Sleep Medicine - [place] [address] [place] [address] Michelle Mendes APRN, SIDE PANEL HANGER [facility] [address] 01/30/2025 9:00 AM CDT Office Visit [facility] - Endocr[facility]ology [facility] #2 [place] [address] Kirsten Niño MD #[address] [address] documented as of this encounter Visit Diagnoses Diagnosis Anxiety Anxiety state, unspecified documented in this encounter Additional Health Concerns Infection Onset Date Last Indicated Resolved Time COVID - 19 06/01/2023 06/01/2023 06/01/2023 8:16 AM CDT COVID - 11/01/2023 11/01/2023 11/11/2023 12:1 6 AM DONOR SERVICES MANAGER COVID - 06/25/2024 06/25/2024 06/25/2024 6:36 PM CDT Assessment Noted Time PHQ-9 Depression Total Score: 0 11/22/19 10:00 AM DONOR SERVICES MANAGER documented as of this encounter Care Teams Customer Experience Leader Relationship Specialty Start Date End Date Marco Woods MD #[address] [address] PCP - General Family Medicine 11/22/17 Kirsten Niño MD #[address] [address] Consulting Physician Endocrinology 07/17/22 Chin Burrows MD #[address] [address] Consulting Physician General Surgery 11/22/22 Kelsea Root, RN [place] Estimator Binding 06/15/23 08/26/23 Michelle Mendes APRN, SIDE PANEL HANGER #2 [facility] [address] [place] [address] Nurse Practitioner Advanced Practice Nurse 08/14/22 Chantelle Nix APRN, SIDE PANEL HANGER #2 [place] [address] Nurse Practitioner Advanced Practice Nurse 02/19/24 documented as of this encounter
--- OUTSIDE RECORDS SUMMARY | 2024-12-11 00:46 | XMS_ITS | Encounter Summary ---
Author Organization [facility] Address [address] [place] [address] Phone Care Team Providers Care Organizational Psychologist Name Role Phone Marco Woods MD Primary Care Provider [phone] Kirsten Niño MD Unavailable Cihn Burrows MD Unavailable Kelsea Root RN Unavailable Unavailable Michelle Mendes APRN, RESOURCING CONSULTANT Unavailable Chantelle Nix APRN, RESOURCING CONSULTANT Unavailable Reason for Visit * Reason Comments Medication Refill Encounter Details Date Type Department Care Team (Late st Contact Info) Description 11/27/2020 Refill [facility] - Family Medicine [facility] #[address] [place] [phone] Marco Woods MD [id number] [address] Medication Refill Social History Tobacco Use Types Packs/Day Years Used Date Smoking Tobacco: Never Smokeless Tobacco: Former Alcohol Use Standard Drinks/Week Comments Not Currently 0 (1 standard drink = 0.6 oz pur e alcohol) Sexually Active Control Partners Comments Not Currently Comments No Sex and Gender Information Value Date Recorded Sex Assigned at Female 11/22/2023 11:58 AM MORNING SHOW NEWSCAST PRODUCER Legal Sex Female 11:34 PM CDT Gender Identity Female 11/22/2023 11:58 AM MORNING SHOW NEWSCAST PRODUCER Sexual Orientation Not on file Occupation Industry Job Start Date Job End Date disabled Not on file Not on file Not on file COVID-19 Exposure Response Date Recorded In the last month, have you been in contact with someone who was confirmed or suspected to have Coronavirus / COVID-19? No / Unsure 11/09/2020 1:41 PM MORNING SHOW NEWSCAST PRODUCER documented as of this encounter Miscellaneous Notes * Telephone Encounter - Marco Woods MD - 11/29/2020 6:52 AM CST Prescription approved. Please call in ING SHOW NEWSCAST PRODUCER * Telephone Encounter - Reina Paulson RN - 11/28/2020 1:56 PM CST Medication failed the protocol, provider to review and approve the medication order if appropriate. Requested Prescriptions Pending Prescriptions Disp Refills Trelegy Ellipta 100-62.5-25 MCG/INH AEROSOL POWDER, BREATH ACTIVATED [Pharmacy Med Name: TRELEGY ELLIPTA 100-62.5MCG INH 30P] 60 Each Sig: INHALE 1 PUFF BY MOUTH DAILY Off-Protocol Failed - 11/27/2020 10:14 AM Failed - Medication not assigned to a protocol, review manually. Passed - Valid encounter within last 12 months Past Office Visits Recent Outpatient Visits 2 weeks ago Asthma, unspecified asthma severity, unspecified whether complicated, unspecified whether persistent [facility] Medical [facility] Family Medicine - Marco Menchaca MD 2 months ago Asthma, unspecified asthma severity, unspecified whether complicated, unspecified whether persistent [facility] Medical [facility] Family Medicine Marco Santacruz MD 5 months ago Preop examination [facility] Medical [facility] Family Medicine Marco Santacruz MD 7 months ago Essential hypertension [facility] Marco Santacruz MD 11 months ago Essential hypertension [facility] Family Medicine Marco Santacruz MD Upcoming Appointments Future Appointments In [address] Mammography, [facility] In 3 weeks Kirsten Niño MD [facility] Group - Endocrinology [facility] In 1 month Adrien [facility]oya MD [facility] PULMON[facility], [facility] In 2 months Marco Woods MD [facility] Medical [facility] - Family Medicine [facility] HOLIDAY DETECTOR OPERATOR - Recent and Past Visits Recent Visits Date Type Provider Dept 11/09/20 Office Visit [facility] [place] [facility]20 Office Visit Marco Woods MD [facility] [place] 04/27/20 Office Visit [facility] [place] 12/24/19 Office Visit [facility] [place] 11/12/19 Office Visit Mirtha Steiner APN, RESOURCING CONSULTANT [facility] 10/24/19 Office Visit Ronald Shaffer APN, RESOURCING CONSULTANT [facility] Showing recent visits within past 460 days with a meds authorizing provider and meeting all other requirements Future Appointments Date Type Provider Dept 02/07/21 Appointment Marco Woods MD [facility] Showing future appointments within next 90 days with a meds authorizing provider and meeting all other requirements ING SHOW NEWSCAST PRODUCER documented in this encounter Plan of Treatment Upcoming Encounters Date Type Department Care Team (Late st Contact Info) Description 12/15/2024 3:30 PM MORNING SHOW NEWSCAST PRODUCER Office Visit [facility] Medical [facility] - Pulmonology & Sleep Medicine - [place] [address]2 [place] [address] Michelle Mendes APRN, RESOURCING CONSULTANT #2 [facility] [address] [place] [address] 01/30/2025 9:00 AM CDT Office Visit [facility] Medical [facility] - Endocrinology - [place] #2 [place] [phone] Kirsten Niño MD #2 [facility] [address] [place] [address] documented as of this encounter Visit Diagnoses Not on filedocumented in this encounter Additional Health Concerns Infection Onset Date Last Indicated Resolved Time COVID - 19 06/29/2022 06/29/2022 07/09/2022 12:1 6 AM CDT COVID - 19 11/20/2022 11/20/2022 11/24/2022 8:51 AM MORNING SHOW NEWSCAST PRODUCER COVID - 19 12/31/2022 12/31/2022 01/10/2023 12:1 8 AM CDT COVID - 19 Confirmed 12/31/2022 12/31/2022 023 12:17 AM CDT COVID - 19 06/01/2023 06/01/2023 06/01/2023 8:16 AM CDT COVID - 19 11/01/2023 11/01/2023 11/11/2023 12:1 6 AM MORNING SHOW NEWSCAST PRODUCER COVID - 19 06/25/2024 06/25/2024 06/25/2024 6:36 PM CDT Assessment Noted Time PHQ-9 Depression Total Score: 0 11/22/19 10:00 AM MORNING SHOW NEWSCAST PRODUCER documented as of this encounter Care Teams Organizational Psychologist Relationship Specialty Start Date End Date Marco Woods MD #2 [facility] [address] [place] [address] PCP - General Family Medicine 11/22/17 Kirsten Niño MD #2 [facility] [address] [place] [address] Consulting Physician Endocrinology 07/17/22 Chin Burrows MD #2 [facility] [address] [place] [address] Consulting Physician General Surgery 11/22/22 Kelsea Root RN [place] Record Keeper 06/15/23 08/26/23 Michelle Mendes APRN, RESOURCING CONSULTANT #2 [facility] [address] [place] [address] Nurse Practitioner Advanced Practice Nurse 08/14/22 Chantelle Nix APRN, RESOURCING CONSULTANT #[address] [place] [address] Nurse Practitioner Advanced Practice Nurse 02/19/24 documented as of this encounter
--- OUTSIDE RECORDS SUMMARY | 2024-12-11 00:46 | XMS_ITS | Encounter Summary ---
Author Organization [facility] Address [address] [place] [address] Phone Care Team Providers Care Environmental Project Manager Name Role Phone Marco Woods MD Primary Care Provider [phone] Kirsten Niño MD Unavailable Chin Burrows MD Unavailable [phone] Kelsea Root RN Unavailable Unavailable Michelle Mendes APRN, FOOD SAFETY DIRECTOR Unavailable Chantelle Nix APRN, FOOD SAFETY DIRECTOR Unavailable Reason for Visit * Reason Comments Medication Refill Encounter Details Date Type Department Care Team (Late st Contact Info) Description 09/22/2022 Refill [facility] - Family Medicine [facility] #2 [place] [address] Marco Woods MD [id number] [address] Medication Refill Social History Tobacco Use Types Packs/Day Years Used Date Smoking Tobacco: Never Smokeless Tobacco: Former Alcohol Use Standard Drinks/Week Comments Not Currently 0 (1 standard drink = 0.6 oz pur e alcohol) Sexually Active Control Partners Comments Not Currently Comments No Sex and Gender Information Value Date Recorded Sex Assigned at Female 11/22/2023 11:58 AM SUPERCALENDER OPERATOR Legal Sex Female 11:34 PM CDT Gender Identity Female 11/22/2023 11:58 AM SUPERCALENDER OPERATOR Sexual Orientation Not on file Occupation Industry Job Start Date Job End Date disabled Not on file Not on file Not on file COVID-19 Exposure Response Date Recorded In the last 10 days, have ambar u been in contact with someone who was confirmed or suspected to have Coronavirus/COVID-19? No / Unsure 09/16/2022 6:11 AM SUPERCALENDER OPERATOR documented as of this encounter Miscellaneous Notes * Telephone Encounter - Amada Orozco RN - 09/22/2022 9:54 AM CST Medication warning Per nursing clinical judgement, provider to review and approve the medication(s) order(s) if appropriate. Requested Prescriptions Pending Prescriptions Disp Refills montelukast (SINGULAIR) 10 MG Tablet [Pharmacy Med Name: MONTELUKAST 10MG TABLETS] 90 Tablet 3 Sig: TAKE 1 TABLET BY MOUTH EVERY EVENING Leukotriene Inhibitors Protocol Passed - 09/22/2022 4:26 AM Passed - Visit with relevant provider in past 12 months or upcoming 90 days Recent Visits Date Type Provider Dept 08/29/22 Office Visit oRnald Shaffer APRN, FOOD SAFETY DIRECTOR [facility] [place] 07/12/22 Office Visit Jany Hernandez, [facility] Office Visit Marco Woods MD [facility] [place] 05/19/22 Office Visit Marco Woods MD [facility] [place] 01/10/22 Office Visit Marco Woods MD [facility] [place] 10/04/21 Office Visit [facility] MD [facility] [place] Showing recent visits within past 365 days and meeting all other requirements Future Appointments Date Type Provider Dept 10/25/22 Appointment Marco Woods MD [facility] [place] Showing future appointments within next 90 days and meeting all other requirements ROPINIROLE HYDROCHLORIDE 4 MG Tablet [Pharmacy Med Name: ROPINIROLE 4MG TABLETS] 90 Tablet 1 Sig: TAKE 1 TABLET BY MOUTH EVERY NIGHT Antiparkinson Dopaminergics and COMT Protocol Passed - 09/22/2022 4:26 AM Passed - Visit with relevant provider in the past 9 months or upcoming 90 days Recent Visits Date Type Provider Dept 08/29/22 Office Visit Ronald Shaffer APRN, FOOD SAFETY DIRECTOR [facility] 07/12/22 Office Visit [facility] 06/23/22 [facility] [place] 01/10/22 Office Visit [facility] Show[facility] recent visits within past 270 days and meeting all other requirements Future Appointments Date Type Provider Dept 10/25/22 Appointment Marco Woods MD [facility] [place] Showing future appointments within next 90 days and meeting all other requirements Passed - Blood pressure on record in past 12 months Clinician-entered: BP Readings from Last 3 Encounters: 09/12/22 140/84 08/29/22 134/70 08/28/22 118/78 Patient-entered: No data recorded RCALENDER OPERATOR documented in this encounter Plan of Treatment Upcoming Encounters Date Type Department Care Team (Late st Contact Info) Description 12/15/2024 3:30 PM SUPERCALENDER OPERATOR Office Visit [facility] - Pulmonology & Sleep Medicine - [place] #2 [place] [address] Michelle Mendes APRN, FOOD SAFETY DIRECTOR #2 [facility] [address] [place] [address] 01/30/2025 9:00 AM CDT Office Visit [facility] Medical [facility] - Endocrinology - [place] #2 [place] [address] Kirsten Niño MD #2 [facility] [address] [place] [address] documented as of this encounter Visit Diagnoses Diagnosis Organic periodic limb movement sleep disorder documented in this encounter Additional Health Concerns Infection Onset Date Last Indicated Resolved Time COVID - 19 11/20/2022 11/20/2022 11/24/2022 8:51 AM SUPERCALENDER OPERATOR COVID - 19 12/31/2022 12/31/2022 01/10/2023 12:1 8 AM CDT COVID - 19 Confirmed 12/31/2022 12/31/2022 023 12:17 AM CDT COVID - 19 06/01/2023 06/01/2023 06/01/2023 8:16 AM CDT COVID - 19 11/01/2023 11/01/2023 11/11/2023 12:1 6 AM SUPERCALENDER OPERATOR COVID - 19 06/25/2024 06/25/2024 06/25/2024 6:36 PM CDT Assessment Noted Time PHQ-9 Depression Total Score: 0 11/22/19 10:00 AM SUPERCALENDER OPERATOR documented as of this encounter Care Teams Environmental Project Manager Relationship Specialty Start Date End Date Marco Woods MD #2 [facility] [address] [place] [address] PCP - General Family Medicine 11/22/17 Kirsten Niño MD #2 [facility] [address] [place] [address] Consulting Physician Endocrinology 07/17/22 Chin Burrows MD #2 [facility] [address] [place] [address] Consulting Physician General Surgery 11/22/22 Kelsea Root RN [place] Sandwich Peddler 06/15/23 08/26/23 Michelle Mendes APRN, FOOD SAFETY DIRECTOR #2 [facility] [address] [place] [address] Nurse Practitioner Advanced Practice Nurse 08/14/22 Chantelle Nix APRN, FOOD SAFETY DIRECTOR #2 [place] [address] Nurse Practitioner Advanced Practice Nurse 02/19/24 documented as of this encounter
--- OUTSIDE RECORDS SUMMARY | 2024-12-11 00:46 | XMS_ITS | Encounter Summary ---
Author Organization [facility] Address [address] [place] [address] Phone Care Team Providers Care Photographic Equipment Mechanic Name Role Phone Marco Woods MD Primary Care Provider Kirsten Niño MD Unavailable Chin Burrows MD Unavailable [phone] Kelsea Root RN Unavailable Unavailable Michelle Mendes APRN, LIVESTOCK DEALER Unavailable Chantelle Nix APRN, LIVESTOCK DEALER Unavailable Reason for Visit * Reason Comments Medication Refill Encounter Details Date Type Department Care Team (Late st Contact Info) Description 01/22/2023 Refill [facility] - Endocrinology - [place] [address] [place] [address] Kirsten Niño MD [address] [address] Medication Refill Social History Tobacco Use Types Packs/Day Years Used Date Smoking Tobacco: Never Smokeless Tobacco: Never Alcohol Use Standard Drinks/Week Comments Not Currently 0 (1 standard drink = 0.6 oz pur e alcohol) Sexually Active Control Partners Comments Not Currently Comments No Sex and Gender Information Value Date Recorded Sex Assigned at Female 11/22/2023 11:58 AM WELDING EQUIPMENT REPAIRER SUPERVISOR Legal Sex Female 11:34 PM CDT Gender Identity Female 11/22/2023 11:58 AM WELDING EQUIPMENT REPAIRER SUPERVISOR Sexual Orientation Not on file Occupation [...] st Contact Info) Description 12/15/2024 3:30 PM WELDING EQUIPMENT REPAIRER SUPERVISOR Office Visit [facility] - Pulmonology & Sleep Medicine [facility] [address] [place] [address] Michelle Mendes APRN, DREW [address] [facility] [address] [place] [address] 01/30/2025 9:00 AM CDT Office Visit [facility] Medical [facility] - Endocrinology - [place] [address] [place] [address] Kirsten Niño MD [address]2 [facility] [address] [place] [address] documented as of this encounter Visit Diagnoses Not on filedocumented in this encounter Additional Health Concerns Infection Onset Date Last Indicated Resolved Time COVID - 19 06/01/2023 06/01/2023 06/01/2023 8:16 AM CDT COVID - 19 11/01/2023 11/01/2023 11/11/2023 12:1 6 AM WELDING EQUIPMENT REPAIRER SUPERVISOR COVID - 19 06/25/2024 06/25/2024 06/25/2024 6:36 PM CDT Assessment Noted Time PHQ-9 Depression Total Score: 0 11/22/19 18 10:00 AM WELDING EQUIPMENT REPAIRER SUPERVISOR documented as of this encounter Care Teams Photographic Equipment Mechanic Relationship Specialty Start Date End Date Marco Woods MD [address]2 [facility] [address] [place] [address] PCP - General Family Medicine 11/22/17 Kirsten Niño MD #2 [facility] [address] [place] [address] Consulting Physician Endocrinology 07/17/22 Chin Burrows MD #2 [facility] [address] [place] [id number] Consulting Physician General Surgery 11/22/22 Kelsea Root RN [place] Rn Anesthesiology 06/15/23 08/26/23 Michelle Mendes APRN, LIVESTOCK DEALER #2 [facility] [address] [place] [address] Nurse Practitioner Advanced Practice Nurse 08/14/22 Chantelle Nix LICENSED PESTICIDE APPLICATOR, LIVESTOCK DEALER [address] [place] [address] Nurse Practitioner Advanced Practice Nurse 02/19/24 documented as of this encounter
--- OUTSIDE RECORDS SUMMARY | 2024-12-11 00:46 | XMS_ITS | Data Portability ---
Author Organization [facility] Address [address] [place] [address] Assessment Encounter Date Assessment Date Assessment LastModified by Organization Details LastModified Time 04/01/2015 04/01/2015 URI sxs appear to be viral--pt is to let us know if sxs worsen. [email or web address] Not available 04/01/2015 12:45:52 02/26/2017 02/26/2017 Stop symbicort. Pt sees an ENT and a women's studies professor. [email or web address] Not available 02/26/2017 12:21:36 Plan of Treatment Reminders Order Date Submit Date Provider Last Modified By Organization Details Last Modified Time Details Appointments None recorded. Lab None recorded. Referral None recorded. Procedures None recorded. Surgeries None recorded. Imaging None recorded. Medication Orders ProAir HFA 90 mcg/actuat ion aerosol inhaler 2016 017 INTERFACE [facility] #50951, [address], [place], [id number], 7 12:20:23 cyclobenza ilia 10 mg tablet 2015 016 [email or web address] m7 [facility] [address], [place], [id number], 7 12:01:57 Voltaren 1 % topical gel 2015 016 [facility]FACE [facility], [address], [place], [id number], 6 15:58:06 Qvar 40 mcg/actuat ion Metered Aerosol oral inhaler 2014 015 [email or web address] m7 [facility], [address], [place], [id number], 7 12:02:24 montelukas t 10 mg tablet 2014 015 [email or web address] [facility], [address], [place], [id number], 5 17:54:35 Flovent HFA 220 mcg/actuat ion aerosol inhaler 2014 015 [email or web address] [facility], [address], [place], [id number], 7 10:05:57 Patient TargetsNo targets recorded. Patient Instructions Encounter Date Encounter Id Patient Instructions Last Modified By Organization Details Last Modified Time 04/01/2015 [id number] When You Want to Lose Weight: Care Instructions [email or web address] Not available 04/07/2015 16:40:13 hypothyroidism: care instructions [email or web address] Not available 04/07/2015 16:40:13 10/01/2015 [id number] controlling your asthma: care instructions [email or web address] Not available 10/04/2015 09:15:49 learning about asthma [email or web address] Not available 10/04/2015 09:15:49 allergies: care instructions [email or web address] Not available 10/01/2015 17:54:35 managing your allergies: care instructions [email or web address] Not available 10/01/2015 17:54:35 When You Want to Lose Weight: Care Instructions [email or web address] Not available 10/01/2015 17:54:35 hypothyroidism: care instructions Not available 10/01/2015 17:54:35 shortness of breath: care instructions Not available 10/01/2015 17:54:35 03/31/2016 [id number] When You Want to Lose Weight: Care Instructions Not available 03/31/2016 16:03:45 hypothyroidism: care instructions Not available 03/31/2016 16:03:45 02/26/2017 [id number] controlling your asthma: care instructions Not available 02/26/2017 12:25:06 learning about asthma Not available 02/26/2017 12:25:06 When You Want to Lose Weight: Care Instructions Not available 02/26/2017 12:25:06 hypothyroidism: care instructions Not available 02/26/2017 12:25:06 Reason for Referral None Reported. Results Created Date Observation Date Name Description Value Unit Range Abnormal Flag Note LastModifiedBy Organization Detail LastModifiedTime 02/06/20 15 02/05/2015 imagi ng/di agnos tic resul t No observ ation record ed. [facility] ([facility] [address] [place], [address], 02/05/2015 13:56:27 03/12/20 15 imagi ng/di agnos tic resul t No observ ation record ed. [email or web address] Not Available 2014 15:37:15 01/10/20 16 01/10/2016 imagi ng/di agnos tic resul t No observ ation record ed. [email or web address] [facility] [address] [place], [address], 01/11/2016 00:46:44 02/01/20 17 01/31/2017 CT, abdom en + pelvi s, w/ contr ast No observ ation record ed. Not Available 2016 09:39:13 02/14/20 17 02/13/2017 MAMMO , diagn ostic , bilat eral, w/ CAD No observ ation record ed. [facility] [address] [place], [address], 02/14/2017 15:32:05 Result Notes None recorded. Problems Name Problem SNOMED Code Status Onset Date Resolution Date Notes Provider Name and Address Organization Details Recorded Time Arthritis 2495931 Active Anmol Staffrod MD Attn: Accountin g,[address] [facility], [place], [address], [facility] 5 16:29:02 Anemia 240168212 Active Anmol Stafford MD Attn: Accountin g,[address] [facility], [place], [address], [place] [facility] 5 23:14:44 Morbid obesity 835434299 Active Anmol Stafford MD Attn: Accountin g,[address] [facility], [place], [address], [place] [facility] 6 15:57:59 Hypothyroidism 74427396 Active Anmol Stafford MD Attn: Accountin g,[address] [facility], [place], [address], [place] [facility] 6 15:57:59 Allergic rhinitis 74831932 Active Anmol Stafford MD Attn: Accountin g,[address] [facility], [place], [address], [place] [facility] 5 17:54:34 Asthma 764514856 Active Anmol Stafford MD Attn: Accountin g,[address] [facility], [place], [address], [place] - [facility] 5 17:54:34 Dyspnea 917996313 Active Anmol Stafford MD Attn: Accountin g,[address] [facility], [place], [address], [place] - [facility] 5 13:11:38 Problem Notes None recorded. Procedures Surgical History None recorded. Imaging Results Imaging Date Name Status LastModified by [facility] Details LastModified Time 02/05/2015 imaging/diagn ostic result completed [email or web address] [facility] ([facility]) Scheduling [address] [place], [address], 02/05/2015 13:56:27 03/12/2015 imaging/diagn ostic result completed [email or web address] Information not available 03/12/2015 15:37:15 01/10/2016 imaging/diagn ostic result completed [email or web address] [facility] [address] [place], [address], 01/11/2016 00:46:44 01/31/2017 CT, abdomen + pelvis, w/ contrast completed Information not available 02/01/2017 09:39:13 02/13/2017 MAMMO, diagnostic, bilateral, w/ CAD completed [facility] [address] [place], [address], 02/14/2017 15:32:05 Procedure Notes None recorded. Medical Equipment None Reported. Allergies Allergen ID Allergen Name Allergen Category Reaction Reaction Severity Criticality Documentation Date Start Date Code Code System Note Provider Name and Address Organization Details Recorded Time 9364 codeine medicatio n Not available Not available Not available 10/06/2014 2670 RxNorm Not Available Not Available Not Available 9365 Non-stero idal anti-infl ammatory agent (product) medicatio n Not available Not available Not available 10/06/2014 59292 005 SNOMED Not Available Not Available Not Available Medications Name Sig Start Date Stop Date Status Note LastModified by Organization Details LastModified Time cyclobenza ilia 10 mg tablet TAKE 1 TABLET BY MOUTH TWICE DAILY 02/26 completed Not Available Not Available Not Available amoxicilli n 500 mg capsule active Not Available Not Available Not Available fluconazol e 100 mg tablet active Not Available Not Available Not Available nystatin 100,000 unit/mL oral suspension SHAKE LIQUID AND TAKE 5 ML BY MOUTH THREE TIMES DAILY FOR 14 DAYS active Not Available Not Available No t Available atorvastat in 20 mg tablet TAKE 1 TABLET BY MOUTH DAILY active Not Available Not Available No t Available donepezil 5 mg tablet TAKE 1 TABLET BY MOUTH NIGHTLY active Not Available Not Available No t Available Carafate 100 mg/mL oral suspension active Not Available Not Available N ot Available azithromyc in 250 mg tablet TAKE 2 TABLETS BY MOUTH FOR 1 DAY THEN TAKE 1 TABLET BY MOUTH DAILY FOR 4 DAYS active Not Available Not Available No t Available alprazolam 1 mg tablet TAKE 1 TABLET BY MOUTH THREE TIMES DAILY NEEDED FOR ANXIETY active Not Available Not Available No t Available tizanidine 4 mg tablet active Not Available Not Available Not Available Synthroid 200 mcg tablet TAKE ONE TABLET BY MOUTH DAILY ALONG WITH 25MCG FOR A TOTAL DAILY DOSE OF 225MCG active Not Available Not Available No t Available hydrocodon e 5 mg-acetami nophen 325 mg tablet TAKE 1 TABLET BY MOUTH EVERY 6 HOURS NEEDED FOR MODERATE TO SEVERE PAIN active Not Available Not Available No t Available donepezil 10 mg tablet active Not Available Not Available Not Available ondansetro n HCl 4 mg tablet active Not Available Not Available Not Available prednisone 20 mg tablet active Not Available Not Available Not Available alendronat e 70 mg tablet 02/26 completed Not Available Not Available Not Available clonazepam 0.5 mg tablet 02/26 completed Not Available Not Available Not Available Nexium 40 mg capsule,de layed release active Not Available Not Available Not Available acetaminop hen 300 mg-codeine 30 mg tablet TAKE 1 TABLET BY MOUTH EVERY 4 TO 6 HOURS NEEDED active Not Available Not Available No t Available amlodipine 5 mg tablet TAKE 1 TABLET BY MOUTH DAILY active Not Available Not Available No t Available ciprofloxa luis 500 mg tablet TAKE 1 TABLET BY MOUTH TWICE DAILY FOR 7 DAYS active Not Available Not Available No t Available tramadol 50 mg tablet TAKE 1-2 TABLETS BY MOUTH EVERY 4-6 HOURS NEEDED FOR PAIN - MAX 8 TABLETS PER DAY active Not Available Not Available No t Available triamcinol one acetonide 0.1 % topical cream APPLY TOPICALLY TO ARMS DAILY active Not Available Not Available No t Available amoxicilli n 500 mg tablet Take 1 tablet 3 times a day by oral route. active Not Available Not Available No t Available Synthroid 175 mcg tablet active Not Available Not Available Not Available ofloxacin 0.3 % ear drops active Not Available Not Available Not Available alprazolam 0.25 mg tablet TAKE 1 TABLET BY MOUTH ONCE FOR 1 DOSE active Not Available Not Available No t Available metoclopra mide 5 mg tablet active Not Available Not Available Not Available trazodone 100 mg tablet active Not Available Not Available Not Available Synthroid 25 mcg tablet active Not Available Not Available Not Available lithium carbonate 300 mg capsule TAKE 1 CAPSULE BY MOUTH TWICE DAILY DIRECTED active Not Available Not Available No t Available ropinirole 2 mg tablet active Not Available Not Available Not Available cephalexin 500 mg capsule TAKE ONE CAPSULE BY MOUTH TWICE DAILY active Not Available Not Available No t Available trazodone 150 mg tablet TAKE 1 TABLET BY MOUTH EVERY NIGHT FOR SLEEP active Not Available Not Available No t Available ropinirole 0.5 mg tablet active Not Available Not Available Not Available Qvar 40 mcg/actuat ion Metered Aerosol oral inhaler Inhale 2 puffs twice daily 02/26 completed Not Available Not Available Not Available Synthroid 75 mcg tablet active Not Available Not Available Not Available Synthroid 50 mcg tablet active Not Available Not Available Not Available buspirone 7.5 mg tablet active Not Available Not Available Not Available montelukas t 10 mg tablet TAKE 1 TABLET BY MOUTH EVERY EVENING active Not Available Not Available No t Available zolpidem 5 mg tablet TAKE 1 TABLET BY MOUTH EVERY DAY AT BEDTIME NEEDED FOR SLEEP active Not Available Not Available No t Available methylpred nisolone 4 mg tablets in a dose pack FOLLOW PACKAGE DIRECTION S active Not Available Not Available No t Available albuterol sulfate HFA 90 mcg/actuat ion aerosol inhaler INHALE 2 PUFFS BY INHALATIO N EVERY 6 HOURS NEEDED FOR WHEEZING OR COUGH active Not Available Not Available No t Available fluticason e propionate 50 mcg/actuat ion nasal spray,susp ension SHAKE LIQUID AND USE 2 SPRAYS IN EACH NOSTRIL DAILY DIRECTED active Not Available Not Available No t Available metoclopra mide 10 mg tablet active Not Available Not Available Not Available amoxicilli n 875 mg-potassi um clavulanat e 125 mg tablet TAKE 1 TABLET BY MOUTH TWICE DAILY FOR 6 DAYS active Not Available Not Available No t Available ropinirole 4 mg tablet TAKE 1 TABLET BY MOUTH EVERY NIGHT active Not Available Not Available No t Available buspirone 15 mg tablet TAKE 1 TABLET BY MOUTH THREE TIMES DAILY WITH MEALS active Not Available Not Available No t Available escitalopr am 20 mg tablet TAKE 1 TABLET BY MOUTH EVERY DAY IN THE MORNING active Not Available Not Available No t Available cyclobenza ilia 5 mg tablet TAKE 1 TABLET BY MOUTH THREE TIMES DAILY NEEDED FOR MUSCLE SPASMS active Not Available Not Available No t Available Restasis 0.05 % eye drops in a dropperett e INSTILL 1 DROP INTO BOTH EYES TWICE DAILY active Not Available Not Available No t Available memantine 5 mg tablet TAKE 1 TABLET BY MOUTH TWICE DAILY DIRECTED active Not Available Not Available No t Available Spiriva with HandiHaler 18 mcg and inhalation capsules INHALE THE CONTENTS OF 1 CAPSULE VIA INHALATIO N DEVICE DAILY active Not Available Not Available No t Available Flovent HFA 220 mcg/actuat ion aerosol inhaler Inhale 1 puff twice a day by inhalatio n route. 04/16 completed Not Available Not Available Not Available Asmanex Twisthaler 220 mcg/actuat ion(14 doses) breath activated inhalr Inhale 1 puff every day by inhalatio n route. 2016 active Not Available Not Available Not Avai lable Aricept 1 mg po p.m. active Not Available Not Available No t Available Amitiza 24 mcg capsule 02/26 completed Not Available Not Available Not Available quetiapine 400 mg tablet TAKE 1 TABLET BY MOUTH EVERY DAY AT BEDTIME active Not Available Not Available No t Available Symbicort 160 mcg-4.5 mcg/actuat ion HFA aerosol inhaler INHALE 2 PUFFS BY MOUTH TWICE DAILY active Not Available Not Available No t Available Seroquel XR 400 mg tablet,ext ended release active Not Available Not Available Not Available diclofenac 1 % topical gel active [facility] Not Available Not Available Not Available dexlansopr azole 60 mg capsule,bi phase delayed release TAKE 1 CAPSULE BY MOUTH EVERY MORNING 30 MINUTES BEFORE A MEAL WITH PROTEIN. active Not Available Not Available No t Available Prolia 60 mg/mL subcutaneo us syringe INJECT 1ML SUBCUTANE OUS EVERY 6 MONTHS active Not Available Not Available No t Available Linzess 145 mcg capsule active Not Available Not Available Not Available Belsomra 10 mg tablet active Not Available Not Available Not Available Asmanex HFA 200 mcg/actuat ion aerosol inhaler INHALE 1 PUFF BY MOUTH EVERY DAY active Not Available Not Available No t Available Arnuity Ellipta 200 mcg/actuat ion powder for inhalation Inhale 1 puff every day by inhalatio n route. 2016 active Not Available Not Available Not Avai lable Fluvirin 45 mcg (15 mcg x 3)/0.5 mL intramuscu lar suspension active Not Available Not Available N ot Available Linzess 72 mcg capsule TAKE ONE CAPSULE BY MOUTH EVERY OTHER DAY active Not Available Not Available No t Available Fluvirin 45 mcg (15 mcg x 3)/0.5 mL intramuscu lar suspension active Not Available Not Available N ot Available Trelegy Ellipta 100 mcg-62.5 mcg-25 mcg powder for inhalation INHALE 1 PUFF BY MOUTH DAILY active Not Available Not Available No t Available Trelegy Ellipta 200 mcg-62.5 mcg-25 mcg powder for inhalation INHALE 1 PUFF BY MOUTH DAILY active Not Available Not Available No t Available Vitals Date Recorded Respiratory rate Oxygen saturation Oxygen saturation in Arterial blood by Pulse oximetry Body weight Body temperature Heart rate Body mass index (BMI) Body height Systolic blood pressure Diastolic blood pressure Provider Name and Address Organization Details Last Updated DateTime 5 24 /min 97 % 97 % 953232. 272353 g 98.9 [degF] 84 /min 42.7 kg/m2 154.94 cm 102 mm[Hg] 60 mm[Hg] Lesa Rojo RN [facility] 5 10:21:25 Date Recorded Respiratory rate Body weight Oxygen saturation Oxygen saturation in Arterial blood by Pulse oximetry Body height Heart rate Body mass index (BMI) Systolic blood pressure Diastolic blood pressure Provider Name and Address Organization Details Last Updated DateTime 5 24 /min 191776. 342128 g 95 % 95 % 154.94 cm 103 /min 43.7 kg/m2 144 mm[Hg] 82 mm[Hg] Azalea Mcconnell MA [facility] 5 10:46:58 Date Recorded Respiratory rate Body weight Oxygen saturation Oxygen saturation in Arterial blood by Pulse oximetry Body height Heart rate Body mass index (BMI) Systolic blood pressure Diastolic blood pressure Provider Name and Address Organization Details Last Updated DateTime 5 24 /min 627437. 936024 g 95 % 95 % 154.94 cm 87 /min 43.6 kg/m2 114 mm[Hg] 76 mm[Hg] Azalea Mcconnell MA [facility] 5 15:29:26 Date Recorded Respiratory rate Body height Body mass index (BMI) Heart rate Body weight Systolic blood pressure Diastolic blood pressure Provider Name and Address Organization Details Last Updated DateTime 6 16 /min 154.94 cm 43.6 kg/m2 82 /min 969750. 648801 g 152 mm[Hg] 82 mm[Hg] Ana M gayle [facility] 6 15:30:51 Date Recorded Body height Body weight Body mass index (BMI) Oxygen saturation Oxygen saturation in Arterial blood by Pulse oximetry Heart rate Respiratory rate Body temperature Systolic blood pressure Diastolic blood pressure Provider Name and Address Organization Details Last Updated DateTime 05/08/201 7 154.94 cm 116860. 61 g 44.2 kg/m2 95 % 95 % 72 /min 18 /min 98.2 [degF] 128 mm[Hg] 84 mm[Hg] Ana M gayle [facility] 7 12:00:46 Social History None recorded. Functional Status None recorded. Mental Status None recorded. Family History Nothing Reported. Medical History Condition Response Asthma Y Thyroid Problems Y Gynecological HistoryNo gynecological history recorded. Obstetrics History GPAL:G 0 P 0 0 0 0 Immunizations Vaccine Type Date Status Note Provider Nam e and Address Organization Details Recorded Time Hep A-Hep B 5 completed Not [facility] 02:32:57 tetanus toxoid, unspecified formulation 4 completed BEKAH Nicole, [facility] 10/16/2017 17:59:15 pneumococcal, unspecified formulation 9 completed BEKAH Nicole, [facility] 10/16/2017 17:59:31 Past Encounters Encounter ID Performer Location Encounter Start Date Encounter Closed Date Diagnosis/Indication Diagnosis SNOMED-CT Code Diagnosis ICD10 Code Diagnosis Note [id number] Anmol Stafford MD [place] [address] [place] [address] 10/06/2014 11:37:33 10/06/2014 13:05:59 Dyspnea [id number] MD Julian Choudhury [place] [address] [place] [address] 11/04/2014 10:00:37 11/04/2014 13:09:05 Dyspnea 368947580 [id number] Lissy Litzy [facility] [address] [place] [address] 03/04/2015 09:42:41 03/04/2015 15:14:58 Active or passive immunization 024238954 [id number] Azalea Mcconnell MA [facility] [address] [place] [address] 04/01/2015 10:26:56 04/01/2015 13:40:36 Arthritis 3447525 Hypothyroidism 45994297 Morbid obesity 650071485 [id number] MD Julian Choudhury [place] [address] [place] [address] 10/01/2015 15:07:02 10/01/2015 17:58:34 Dyspnea 793419912 R06.00 Allergic rhinitis 354963 04 J30.9 Hypothyroidism 30926551 E03.9 Morbid obesity 604124561 E66.01 Asthma 278446820 J45.90 [id number] MD Julian Choudhury [facility] [address] [place] [address] 03/31/2016 15:18:57 03/31/2016 16:41:34 Hypothyroidism 46323415 E03.9 Morbid obesity 626777206 E66.01 History of fall 56765002 9 Z91.81 [id number] MD Julian Choudhury [facility] [address] [place] [address] 02/26/2017 11:53:16 02/28/2017 09:40:12 Asthma 767404641 J45.909 Morbid obesity 583387782 E66.01 Hypothyroidism 67012915 E03.9 Health Concerns Section Related Observation LastModified by Organization Detai ls LastModified Time None Recorded Concern Status LastModified by Organization Details LastModified Time None Recorded Advance Directives Directive None Recorded Payers Encounter Date Sequence Insurance Name Policy Number Policy Elizabeth Covered Member ID Elizabeth Member ID Guarantor Name 03/04/2015 1 [place] Yudi [place] [id number] Yudi [place] 04/01/2015 [place] [id number] Yudi [place] 10/01/2015 [place] [id number] Yudi [place] 03/31/2016 1 [facility] (MEDICARE REPLACEMENT/AD VANTAGE - HMO) [id number] Yudi [place] [id number] Yudi [place] 03/31/2016 2 [place] WHEN [place]IC[place] REPLACEMENT [place]IMARY) Yudi [place] [id number] Yudi [place] 02/26/2017 1 [facility] (MEDICARE REPLACEMENT/AD VANTAGE - HMO) [id number] Yudi [place] [id number] Yudi [place] 02/26/2017 2 [place]) Yudi [place] [id number] Yudi [place] Notes Date Note Type Note Provider Name and Address Organization Details Recorded Time 04/01/2015 text/html Patient presents for a regular checkup--she describes sxs of an URI since this morning but no production of sputum. Anmol Stafford MD Attn: Accounting,[address] [facility], [place], [address], [facility] 04/07/2015 16:29:25 10/01/2015 text/html Pt is dyspneic--no longer seen by a sales contracts analyst. She states that she does much better on Qvar than the Flonase. Anmol Stafford MD Attn: Accounting,[address] [facility], [place], [address], [facility] 10/01/2015 17:55:03 03/31/2016 text/html Pt fell on March 27, 2016 at home. She is somewhat better now four days later. Anmol Stafford MD Attn: Accounting,[address] [facility], [place], [address], [facility] 03/31/2016 16:44:28 02/26/2017 text/html Pt is now better but states that she suffered from an asthma attack for one week. Anmol Stafford MD Attn: Accounting,[address] [facility], [place], [address], [facility] 02/28/2017 00:32:09 OBGyn Episode No OBEpisode recorded.
--- OUTSIDE RECORDS SUMMARY | 2024-12-11 00:46 | XMS_ITS | Encounter Summary ---
Author Organization [facility] Address [address] [place] [address] Phone Care Team Providers Care Motors Assembler Name Role Phone Marco Woods MD Primary Care Provider Kirsten Niño MD Unavailable Chin Burrows MD Unavailable Michelle Mendes APRN, WARPING MILL OPERATOR Unavailable Chantelle Nix APRN, WARPING MILL OPERATOR Unavailable Reason for Visit * Reason Comments Medication Refill Encounter Details Date Type Department Care Team (Late st Contact Info) Description 10/03/2024 Refill [facility] - Gastroenterology - [place] [address] [place] [address] Chantelle Nix APRN, WARPING MILL OPERATOR [address] [place] [address] Medication Refill Social History Tobacco Use Types Packs/Day Years Used Date Smoking Tobacco: Never Smokeless Tobacco: Never Alcohol Use Standard Drinks/Week Comments Not Currently 0 (1 standard drink = 0.6 oz pur e alcohol) [facility] Utilities Answer Date Recorded In [...] declined 06/25/2024 How often do you attend orthodox or mormonism serv ices? Patient declined 06/25/2024 Do you belong to any clubs o r organizations such as orthodox groups, unions, fraternal or athletic groups, or [...] Total Score - Questions 1-9 18 10/24 [facility] Occupat ional [facility] [place] - Occupational Stress Questionnaire Answer Date Recorded [...] a custodial (including now)? Patient declined 11/28/2023 Housing Stability [...] any time in the past 12 m [facility], were you homeless or living in a custodial (including now)? Patient unable to answer 06/25/2024 Education Answer Date Recorded What is the highest level of school you have completed or the highest degree you have received? 12th grade 04/03/2023 Sexually Active Control Partners Comments Not Currently Comments No Sex and Gender Information Value Date Recorded Sex Assigned at Female 11/22/2023 11:58 AM SURFACE SHIP USW SUPERVISOR Legal Sex Female 11:34 PM CDT Gender Identity Female 11/22/2023 11:58 AM SURFACE SHIP USW SUPERVISOR Sexual Orientation Not on file Occupation Industry Job Start Date Job End Date disabled Not on file Not on file Not on file documented as of this encounter Miscellaneous Notes * Telephone Encounter - Cass Frias RN - 10/31/2024 4:13 AM CST Situation: Patient-med refill Background: Patient contacting PCP office. Assessment: Patient calling to see if her scripts have been refilled. This nurse struggles to understand what scripts patient needs.Patient is very stressed on the phone. She is looking for her atorvastatin, linzess and sertraline. Patient also wants an ED follow up visit. She reports her symptoms from the ED are worsening. Abdomen is rigid and hard across her stomach. See new Triage note 10/31/24. She is also worried because she can't keep her appointment with Dr Niño today. Recommendation: Informed patient that those scripts were sent and explained to her how to switch pharmacies. She verbalizes understanding. This nurse offers to send Dr Niño's office a message for patient as she is very stressed on the phone today. Patient states that would help her a lot. Routing note to Dr Niño's office. Patient is unable to keep this appointment and needs to cancel andreschedule. Phone call to patient requested. . All Patient Appointments Date & Time Provider Department Dept Phone 10/31/2024 11:15 AM Kirsten Niño [facility] Endocrinology - [place] [phone] ACE SHIP USW SUPERVISOR * Telephone Encounter - Denise Honeycutt RN - 10/06/2024 9:16 AM SURFACE SHIP USW SUPERVISOR Medication refilled and signed per [facility] chronic medication standing order for pediatric and adult patients. ACE SHIP USW SUPERVISOR documented in this encounter Plan of Treatment Upcoming Encounters Date Type Department Care Team (Late st Contact Info) Description 12/15/2024 3:30 PM SURFACE SHIP USW SUPERVISOR Office Visit [facility] - Pulmonology & Sleep Medicine - [place] [address] [place] [address] Michelle Mendes APRN, WARPING MILL OPERATOR [address] [address] 01/30/2025 9:00 AM CDT Office Visit [facility] - Endocrinology - [place] [address] [place] [address] Kirsten Niño MD #2 [facility] [address] [place] [address] documented as of this encounter Visit Diagnoses Diagnosis Chronic constipation Unspecified constipation documented in this encounter Additional Health Concerns Assessment Noted Time PHQ-9 Depression Total Score: 18 024 10:00 AM SURFACE SHIP USW SUPERVISOR documented as of this encounter Care Teams Motors Assembler Relationship Specialty Start Date End Date Marco Woods MD #2 [facility] [address] [place] [address] PCP - General Family Medicine 11/22/17 Kirsten Niño MD #[address] [address] Consulting Physician Endocrinology 07/17/22 Chin Burrows MD #[address] [address] Consulting Physician General Surgery 11/22/22 Michelle Mendes APRN, WARPING MILL OPERATOR #2 [facility] [address] [place] [address] Nurse Practitioner Advanced Practice Nurse 08/14/22 Chantelle Nix APRN, WARPING MILL OPERATOR [address] [place] [address] Nurse Practitioner Advanced Practice Nurse 02/19/24 documented as of this encounter
--- OUTSIDE RECORDS SUMMARY | 2024-12-11 00:46 | XMS_ITS | Encounter Summary ---
Author Organization [facility] Address [address] [place] [address] Phone Care Team Providers Care Drop Count Associate Name Role Phone Marco Woods MD Primary Care Provider Kirsten Niño MD Unavailable Chin Burrows MD Unavailable Kelsea Root RN Unavailable Unavailable Michelle Mendes APRN, EMERGENCY COMMUNICATIONS OFFICER Unavailable [phone] Chantelle Nix APRN, EMERGENCY COMMUNICATIONS OFFICER Unavailable Reason for Visit * Reason Comments Medication Refill Encounter Details Date Type Department Care Team (Late st Contact Info) Description 05/27/2023 Refill [facility] Medical Group - Family Medicine - [place] [address] [place] [address] Mirtha Steiner APRN, EMERGENCY COMMUNICATIONS OFFICER #2 [facility] [place] [address] Medication Refill Social History Tobacco [...] Sex Assigned at Female 11/22/2023 11:58 AM PEDIATRIC CARDIOLOGIST Legal Sex Female 11:34 PM CDT Gender Identity Female 11/22/2023 11:58 AM PEDIATRIC CARDIOLOGIST Sexual Orientation Not on file Occupation Industry [...] Encounter - Lesly Danielle RN - 05/28/2023 9:59 AM CDT PDMP 05/10/23 20 day supply Medication failed the protocol, provider to review and approve the medication order if appropriate. Requested Prescriptions Pending Prescriptions Disp Refills ALPRAZolam (XANAX) 1 MG Tablet [Pharmacy Med Name: ALPRAZOLAM 1MG TABLETS] 60 Tablet 0 Sig: TAKE 1 TABLET BY MOUTH THREE TIMES DAILY NEEDED FOR ANXIETY Not Delegated - Benzodiazepines Protocol Failed - 05/27/2023 3:26 AM Failed - This refill cannot be delegated Passed - Visit with relevant provider in past 12 months or upcoming 90 days Recent Visits Date Type Provider Dept 05/01/23 Office Visit Marco Woods MD [facility] 04/18/23 Office Visit Marco Woods MD [facility] 04/03/23 Office Visit Marco Woods MD [facility] 03/12/23 Office Visit Marco Woods MD [facility] 03/05/23 Office Visit Mir[facility] Steiner [facility], [facility] [place] 02/07/23 Office Visit Marco Woods MD [facility] 01/23/23 Office Visit Rebecca Liu APRN, [facility] 12/05/22 Office Visit Marco Woods MD [facility] 10/25/22 Office Visit Marco Woods MD [facility] 08/29/22 Office Visit [facility] Showing recent visits within past 365 days and meeting all other requirements Future Appointments Date Type Provider Dept 08/02/23 Appointment [facility] 08/07/23 Appointment [facility] MD [facility] Showing future appointments within next 90 days and meeting all other requirements documented in this encounter Plan of Treatment Upcoming Encounters Date Type Department Care Team (Late st Contact Info) Description 12/15/2024 3:30 PM PEDIATRIC CARDIOLOGIST Office Visit [facility] Medical [facility] - Pulmonology & Sleep Medicine - [place] #[address] [place] [address] Michelle Mendes APRN, CNP #2 [facility] [address] [place] [address] 01/30/2025 9:00 AM CDT Office Visit [facility] Medical [facility] - Endocrinology - [place] #[address] [place] [address] Kirsten Niño MD #2 [facility] [address] [place] [address] documented as of this encounter Visit Diagnoses Diagnosis Anxiety Anxiety state, unspecified documented in this encounter Additional Health Concerns Infection Onset Date Last Indicated Resolved Time COVID - 19 06/01/2023 06/01/2023 06/01/2023 8:16 AM CDT COVID - 19 11/01/2023 11/01/2023 11/11/2023 12:1 6 AM PEDIATRIC CARDIOLOGIST COVID - 19 06/25/2024 06/25/2024 06/25/2024 6:36 PM CDT Assessment Noted Time PHQ-9 Depression Total Score: 0 11/22/19 18 10:00 AM PEDIATRIC CARDIOLOGIST documented as of this encounter Care Teams Drop Count Associate Relationship Specialty Start Date End Date Marco Woods MD #2 [facility] [address] [place] [address] PCP - General Family Medicine 11/22/17 Kirsten Niño MD #2 [facility] [address] [place] [address] Consulting Physician Endocrinology 07/17/22 Chin Burrows MD #2 [facility] [address] [place] [address] Consulting Physician General Surgery 11/22/22 Kelsea Root RN [place] Can Stacker 06/15/23 08/26/23 Michelle Mendes APRN, EMERGENCY COMMUNICATIONS OFFICER #2 [facility] [address] [place] [address] Nurse Practitioner Advanced Practice Nurse 08/14/22 Chantelle Nix APRN, EMERGENCY COMMUNICATIONS OFFICER #[address] [place] [address] Nurse Practitioner Advanced Practice Nurse 02/19/24 documented as of this encounter
--- OUTSIDE RECORDS SUMMARY | 2024-12-11 00:46 | XMS_ITS | Encounter Summary ---
Author Organization [facility] Address [address] [place] [address] Phone Care Team Providers Care Noodle Press Operator Name Role Phone Marco Woods MD Primary Care Provider Kirsten Niño MD Unavailable Chin Burrows MD Unavailable Kelsea Root RN Unavailable Unavailable Michelle Mendes APRN, INTERFACE CONTROL OFFICER Unavailable [phone] Chantelle Nix APRN, INTERFACE CONTROL OFFICER Unavailable Reason for Visit * Reason Comments Medication Refill Encounter Details Date Type Department Care Team (Late st Contact Info) Description 07/16/2023 Refill [facility] Medical Group - Family Medicine - [place] #[address] [place] [id number] Marco Woods MD [id number] [address] Medication Refill Social History Tobacco Use Types [...] Sex Assigned at Female 11/22/2023 11:58 AM UNIVERSITY DEMONSTRATOR Legal Sex Female 11:34 PM CDT Gender Identity Female 11/22/2023 11:58 AM UNIVERSITY DEMONSTRATOR Sexual Orientation Not on file Occupation Industry [...] Telephone Encounter - Amada Orozco RN - 07/16/2023 5:22 PM CDT Name from pharmacy: AMLODIPINE BESYLATE 5MG TABLETS Will file in chart as: amLODIPine (NORVASC) 5 MG Tablet The original prescription was reordered on 07/16/2023 documented in this encounter Plan of Treatment Upcoming Encounters Date Type Department Care Team (Late st Contact Info) Description 12/15/2024 3:30 PM UNIVERSITY DEMONSTRATOR Office Visit [facility] - Pulmonology & Sleep Medicine - [place] #2 [place] [address] Michelle Mendes APRN, CNP #2 [facility] [address] [place] [address] 01/30/2025 9:00 AM CDT [facility] - Endocrinology - [place] #[address] [place] [address] Kirsten Niño MD #2 [facility] [address] [place] [address] documented as of this encounter Visit Diagnoses Not on filedocumented in this encounter Additional Health Concerns Infection Onset Date Last Indicated Resolved Time COVID - 19 11/01/2023 11/01/2023 11/11/2023 12:1 6 AM UNIVERSITY DEMONSTRATOR COVID - 19 06/25/2024 06/25/2024 06/25/2024 6:36 PM CDT Assessment Noted Time PHQ-9 Depression Total Score: 0 11/22/19 10:00 AM UNIVERSITY DEMONSTRATOR documented as of this encounter Care Teams Noodle Press Operator Relationship Specialty Start Date End Date Marco Woods MD #2 [facility] [address] [place] [address] PCP - General Family Medicine 11/22/17 Kirsten Niño MD #2 [facility] [address] [place] [address] Consulting Physician Endocrinology 07/17/22 Chin Burrows MD #2 [facility] [address] [place] [address] Consulting Physician General Surgery 11/22/22 Kelsea Root RN [place] Director Of Investigations 06/15/23 08/26/23 Michelle Mendes APRN, INTERFACE CONTROL OFFICER #2 [facility] [address] [place] [address] Nurse Practitioner Advanced Practice Nurse 08/14/22 Chantelle Nix APRN, INTERFACE CONTROL OFFICER #2 [place] [address] Nurse Practitioner Advanced Practice Nurse 02/19/24 documented as of this encounter
[2024-12-11] MEDS: LACTATED RINGERS 1,000 ML 150 ML IV CONT (13:40)
--- NOTE | 2024-12-11 13:51 | WPDANESEPPF ---
Anes - Initial Pre Proc Eval Procedure: Operation Date: 12/11/24 13:30 Proposed Procedures p Esophagogastroduodenoscopy & Colonoscopy - Fer Jewell MD Date/Time: 12/11/24 13:51 Surgeon: Fer Jewell MD Pre Op Diagnosis: Abdominal distension, Hx of colon polyps Patient Data Age: 69 Gender: M Height: 1.5 m Weight: 64 kg Last Vital Signs Temp 96.9 F L 12/11/24 13:01 Pulse 54 L 12/11/24 13:01 Resp 16 12/11/24 13:01 BP 118/60 12/11/24 13:01 Pulse Ox 97 12/11/24 13:01 O2 Del Method Room Air 12/11/24 13:01 Allergies Allergy/AdvReac Type Severity Reaction Status Date / Time alendronate sodium (From AdvReac Mild Unknown Verified 12/11/24 12:58 Fosamax) codeine AdvReac Mild Nausea and Verified 12/11/24 12:58 Vomiting metronidazole AdvReac Mild Unknown Verified 12/11/24 12:58 NSAIDS (Non-Steroidal AdvReac Unknown Unknown Verified 12/11/24 12:58 Anti-Inflamma quetiapine AdvReac Unknown Unknown Verified 12/11/24 12:58 tolmetin AdvReac Unknown Unknown Verified 12/11/24 12:58 Home Medications ?Medication ?Instructions ?Recorded ?Confirmed ?Type atorvastatin 20 mg tablet (Lipitor) 20 mg PO DAILY 11/27/24 12/11/24 History erythromycin 250 mg tablet,delayed 250 mg PO TID 4 weeks #84 tabs 11/27/24 12/11/24 Rx release hydroxyzine HCl 25 mg tablet 25 mg PO BID 11/27/24 12/11/24 History levothyroxine 112 mcg tablet 112 mcg PO DAILY 11/27/24 12/11/24 History (Synthroid) linaclotide 145 mcg capsule 145 mcg PO DAILY 11/27/24 12/11/24 History (Linzess) omeprazole magnesium 20 mg 20 mg PO DAILY 11/27/24 12/11/24 History tablet,delayed release (Prilosec OTC) pseudoephedrine HCl 30 mg tablet 30 mg PO Q4-6H PRN nasal congestion 11/27/24 12/09/24 History (Sudafed) ramelteon 8 mg tablet 8 mg PO QHS 11/27/24 12/11/24 History ropinirole 2 mg tablet 2 mg PO DAILY 11/27/24 12/11/24 History amlodipine 5 mg tablet 5 mg PO DAILY 12/09/24 12/11/24 History azithromycin 250 mg tablet 250 mg PO TID 12/09/24 12/09/24 History olanzapine 10 mg tablet 10 mg PO HS 12/09/24 12/09/24 History sertraline 50 mg tablet 50 mg PO BID 12/09/24 12/11/24 History tramadol 50 mg tablet 50 mg PO TID PRN pain 12/09/24 12/11/24 History Patient hx anesthesia problems: other (Pt reports w prev GI anesthesic at [facility], pt aspirated and spent 10 days in ICU. ) Family hx anesthesia problems: none Results Review: All pre-operative results and documents have been reviewed as part of the pre-operative evaluation. [facility] Past Medical History Medical History Early satiety Colon polyps Fatty liver History of stomach ulcers Gastric polyp Constipation Gastroparesis Abdominal distension Nausea and vomiting Abdominal bloating Social History Social History Smoking status: Never smoker Second hand tobacco smoke exposure: No Alcohol intake: never Substance use type: does not use Living arrangements: alone Spiritual care concerns: No Anes - Eval Final PreProcedure Day of Procedure 12/11/24 13:51 Patient weight: normal Lungs: normal air movement Airway: Mallampati scale class II Neurological: alert and oriented Last oral intake: >/= 8 hours ASA classification: III Emergent: no Anesthetic plan: proceed Anesthesia type and monitoring: general ETT and standard monitoring Results Review: All pre-operative results and documents have been reviewed as part of the pre-operative evaluation. HTN, hyperliidemia. hypothyroidism, hx of jejunostomy in the past and reported gastroparesis. Informed Consent: The patient's anesthetic plan and its attendant risks and benefits were discussed with the patient/family/POA. Questions were solicited and answers provided to the satisfaction of the patient/family/POA.
--- NOTE | 2024-12-11 13:58 | PM.IMHP ---
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 She has been experiencing heartburn and diffuse epigastric discomfort associated with distention. In addition, she has a history of colon polyps. She is here referred for EGD and colonoscopy. Review of Systems Review of Systems: All systems reviewed & are unremarkable except as noted in HPI and below PMFSH Past Medical History Medical History Early satiety Colon polyps Fatty liver History of stomach ulcers Gastric polyp Constipation Gastroparesis Abdominal distension Nausea and vomiting Abdominal bloating Social History Social History Smoking status: Never smoker Second hand tobacco smoke exposure: No Alcohol intake: never Substance use type: does not use Living arrangements: alone Spiritual care concerns: No Meds Home Medications and Allergies Home Medications ?Medication ?Instructions ?Recorded ?Confirmed ?Type atorvastatin 20 mg tablet (Lipitor) 20 mg PO DAILY 11/27/24 12/11/24 History erythromycin 250 mg tablet,delayed 250 mg PO TID 4 weeks #84 tabs 11/27/24 12/11/24 Rx release hydroxyzine HCl 25 mg tablet 25 mg PO BID 11/27/24 12/11/24 History levothyroxine 112 mcg tablet 112 mcg PO DAILY 11/27/24 12/11/24 History (Synthroid) linaclotide 145 mcg capsule 145 mcg PO DAILY 11/27/24 12/11/24 History (Linzess) omeprazole magnesium 20 mg 20 mg PO DAILY 11/27/24 12/11/24 History tablet,delayed release (Prilosec OTC) pseudoephedrine HCl 30 mg tablet 30 mg PO Q4-6H PRN nasal congestion 11/27/24 12/09/24 History (Sudafed) ramelteon 8 mg tablet 8 mg PO QHS 11/27/24 12/11/24 History ropinirole 2 mg tablet 2 mg PO DAILY 11/27/24 12/11/24 History amlodipine 5 mg tablet 5 mg PO DAILY 12/09/24 12/11/24 History azithromycin 250 mg tablet 250 mg PO TID 12/09/24 12/09/24 History olanzapine 10 mg tablet 10 mg PO HS 12/09/24 12/09/24 History sertraline 50 mg tablet 50 mg PO BID 12/09/24 12/11/24 History tramadol 50 mg tablet 50 mg PO TID PRN pain 12/09/24 12/11/24 History Allergies Allergy/AdvReac Type Severity Reaction Status Date / Time alendronate sodium (From AdvReac Mild Unknown Verified 12/11/24 12:58 Fosamax) codeine AdvReac Mild Nausea and Verified 12/11/24 12:58 Vomiting metronidazole AdvReac Mild Unknown Verified 12/11/24 12:58 NSAIDS (Non-Steroidal AdvReac Unknown Unknown Verified 12/11/24 12:58 Anti-Inflamma quetiapine AdvReac Unknown Unknown Verified 12/11/24 12:58 tolmetin AdvReac Unknown Unknown Verified 12/11/24 12:58 Vital Signs Vital Signs - 24 hr 12/11/24 13:01 Temperature 96.9 F L Pulse Rate 54 L Respiratory Rate 16 Blood Pressure 118/60 Pulse Oximetry 97 Oxygen Delivery Room Air Exam Const: General: cooperative and healthy appearing Resp: Effort & Inspection: normal respiratory effort and able to speak in complete sentences Auscultation: clear to auscultation bilaterally Cardio: Rate: regular rate Rhythm: regular rhythm GI: Inspection: normal to inspection GI Palp: No No hepatosplenomegaly present Auscultation: normal bowel sounds Rectal Exam: deferred Skin: General skin exam: normal color Psych: Appearance: grossly normal Mental Status: mental status grossly normal Assessment and Plan Assessment and plan (1) GERD (gastroesophageal reflux disease): Code(s): K21.9 - Gastro-esophageal reflux disease without esophagitis Status: Acute Assessment and Plan: The patient is deemed a good candidate for the procedures. Consent signed. Will proceed. (2) Colon polyps: Code(s): K63.5 - Polyp of colon Status: Acute
--- NOTE | 2024-12-11 14:44 | SUR.OPER ---
egd ended at 1434 and colonoscopy started at 1443
== END 2024-12-11 16:07 | disposition home or self-care (01) ==
PROVIDERS: PCP Internal Medicine; Referring Provider Nurse Practitioner Family; Visit Provider Internal Medicine Gastroenterology
PROC: 0DJ08ZZ Inspection of Upper Intestinal Tract, Via Natural or Artificial Opening Endoscopic (ICD-10-PCS; CPT 45378; principal; 2024-12-11 13:30)
DX: K29.50 Unspecified chronic gastritis without bleeding (principal); B96.81 Helicobacter pylori [H. pylori] as the cause of diseases classified elsewhere; K31.7 Polyp of stomach and duodenum; K57.30 Diverticulosis of large intestine without perforation or abscess without bleeding; K21.9 Gastro-esophageal reflux disease without esophagitis; K31.89 Other diseases of stomach and duodenum; K31.84 Gastroparesis; Z79.891 Long term (current) use of opiate analgesic; Z98.890 Other specified postprocedural states; Z98.0 Intestinal bypass and anastomosis status; Z90.49 Acquired absence of other specified parts of digestive tract; Z87.11 Personal history of peptic ulcer disease; Z86.0100 Personal history of colon polyps, unspecified
CPT/HCPCS: 43239; 43251; 45378; 88305; 88342; J2003; J2704; J7120

== ENCOUNTER 2024-12-22 08:26 | Outpatient (CLI) | payer MEDICARE, MEDICAID, SELFPAY ==
[2024-12-22 10:52] LABS: Toxigenic C. Diff NEGATIVE (NEGATIVE)
[2024-12-24 16:39] LABS: Norovirus RNA PCR, Stool NOT DETECTED
== END 2024-12-22 08:27 | disposition home or self-care (01) ==
LOC: ANHLAB 08:30
PROVIDERS: PCP Internal Medicine; Visit Provider Nurse Practitioner Family
DX: R19.7 Diarrhea, unspecified (principal)
CPT/HCPCS: 83993; 87045; 87425; 87427; 87449; 87493; 87798

== ENCOUNTER 2025-02-06 09:58 | Outpatient (CLI) | payer MEDICARE, MEDICAID, SELFPAY ==
--- NOTE | ~2025-02-06 | XR_ITS ---
XR abdomen/kub 1V 02/06/2025 10:33 INDICATION: Abdominal distention. Bilateral swelling. TECHNIQUE: KUB COMPARISON: None FINDINGS: Bowel gas pattern is normal. Moderate colonic fecal loading. There are surgical changes of the abdomen. There is no evidence of free air, mass, organomegaly, ascites or obstruction. No abnorm al calculi are seen. The bones appear intact. IMPRESSION: 1: No acute abdominal abnormality identified. Reviewed, dictated and finalized at location B.
--- OUTSIDE RECORDS SUMMARY | 2025-02-06 10:07 | XMS_ITS | Encounter Summary ---
Author Organization [facility] Address [address] [place] [address] Phone Care Team Providers Care Automobile Locator Name Role Phone Marco Woods MD Primary Care Provider [phone] Kirsten Niño MD Unavailable Chin Burrows MD Unavailable Michelle Mendes APRN, GOLF MANAGER Unavailable [phone] Chantelle Nix DUNGEON MASTER, GOLF MANAGER Unavailable Reason for Visit * Reason Comments Medication Refill Encounter Details Date Type Department Care Team (Late st Contact Info) Description 09/25/2023 [facility] [address] [place] [address] Kirsten Niño MD #[address] [address] Medication Refill Social History Tobacco [...] Sex Assigned at Female 11/22/2023 11:58 AM GRAIN MIXER Legal Sex Female 11:34 PM CDT Gender Identity Female 11/22/2023 11:58 AM GRAIN MIXER Sexual Orientation Not on file Occupation Industry Job Start Date Job End Date disabled Not on file Not on file Not on file documented as of this encounter Miscellaneous Notes * Telephone Encounter - Denise Doe, RN - 09/26/2023 8:46 AM GRAIN MIXER Requested Prescriptions Pending Prescriptions Disp Refills ??? Prolia 60 MG/ML Solution Prefilled Syringe [Pharmacy Med Name: PROLIA 60MG/ML CHARLEEN FOR INJ, 1ML]1 mL 0 Sig: INJECT 1ML SUBCUTANEOUS EVERY 6 MONTHS Next appt: 09/27/2024 N MIXER documented in this encounter Plan of Treatment Upcoming Encounters Date Type Department Care Team (Late st Contact Info) Description 03/12/2025 8:00 AM CDT [facility] - [place] #[address] [place] [address] Marco Woods MD #2 [facility] [address] [place] [address] 05/11/2025 9:45 AM CDT Office Visit [facility] - Endocrinology - [place] #2 [place] [address] Kirsten Niño MD #2 [facility] [address] [place] [address] 06/19/2025 10:00 AM CDT Office Visit [facility] - Pulmonology & Sleep Medicine - [place] #[address] [place] [address] Michelle Mendes APRN, GOLF MANAGER #2 [facility] [address] [place] [address] documented as of this encounter Visit Diagnoses Not on filedocumented in this encounter Additional Health Concerns Infection Onset Date Last Indicated Resolved Time COVID - 19 11/01/2023 11/01/2023 11/11/2023 12:1 6 AM GRAIN MIXER COVID - 19 06/25/2024 06/25/2024 06/25/2024 6:36 PM CDT Assessment Noted Time PHQ-9 Depression Total Score: 0 11/22/19 10:00 AM GRAIN MIXER documented as of this encounter Care Teams Automobile Locator Relationship Specialty Start Date End Date Marco Woods MD #2 [facility] [address] [place] [address] PCP - General Family Medicine 11/22/17 Kirsten Niño MD #2 [facility] [address] [place] [address] Consulting Physician Endocrinology 07/17/22 Chin Burrows MD #2 [facility] [address] [place] [address] Consulting Physician General Surgery 11/22/22 Michelle Mendes APRN, GOLF MANAGER #2 [facility] [address] [place] [address] Nurse Practitioner Advanced Practice Nurse 08/14/22 Chantelle Nix APRN, GOLF MANAGER #[address] [place] [address] Nurse Practitioner Advanced Practice Nurse 02/19/24 documented as of this encounter
--- OUTSIDE RECORDS SUMMARY | 2025-02-06 10:07 | XMS_ITS | Clinical Summary ---
Author Organization [facility] Address [address] [facility] [place] [address] Phone Care Team Providers Care Customer Care Team Coach Name Role Phone Marco Woods MD Primary Care Provider [phone] Kirsten Niño MD Unavailable Chin Burrows MD Unavailable Michelle Mendes SLURRY CONTROL OPERATOR HELPER, FILAMENT MAKER Unavailable SchChantelle ugalde APRN, FILAMENT MAKER Unavailable Allergies Active Allergy Reactions Criticality Noted [...] mouth every 8 hours as needed. Active atorvastatin (LIPITOR) 20 MG Tablet Take 1 Tablet by mouth daily. 90 Tablet 3 11/04/19 25 Active ramelteon (ROZEREM) 8 MG Tablet Take 1 Tablet by mouth nightly. 90 Tablet 1 11/04/19 25 Active OLANZapine (ZYPREXA) 10 MG Tablet TAKE 1 TABLET BY MOUTH EVERY NIGHT AT BEDTIME 28 Tablet 2 11/25/19 25 Active sertraline (ZOLOFT) 50 MG Tablet TAKE 1 TABLET BY MOUTH TWICE A DAY 56 Tablet 2 11/25/19 25 Active Fluticasone-Ume clidin-Vilant (Trelegy Ellipta) 100-62.5-25 MCG/ACT AEROSOL POWDER, BREATH ACTIVATED take 1 Puff by inhalation daily. 1 Each 3 12/04/19 25 Active azelastine (ASTELIN) 0.1 % SolutionIndicat ions:PND (post-nasal drip) 2 Sprays by Nasal route 2 times daily. Use in each nostril as directed 30 mL 3 12/15/19 25 Active Linzess 145 MCG CapsuleIndicati ons:Chronic constipation TAKE 1 CAPSULE BY MOUTH EVERY MORNING BEFORE BREAKFAST 30 Capsule 2 12/25/19 25 Active amLODIPine (NORVASC) 5 MG Tablet Take 1 Tablet by mouth daily. 90 Tablet 01/09/20 25 Active hydrOXYzine (ATARAX) 25 MG Tablet TAKE 2 TABLETS BY MOUTH TWICE A DAY 90 Tablet 01/27/20 25 Active traMADol (ULTRAM) 50 MG TabletIndicatio ns:Pain of upper abdomen Take 1 Tablet by mouth every 8 hours as needed for Moderate or more severe pain. 60 Tablet 01/28/20 25 Active pramipexole (MIRAPEX) 0.5 MG TabletIndicatio ns:Restless legs syndrome (RLS) Take 2 Tablets by mouth 2 times daily. 360 Tablet 01/28/20 25 Active levothyroxine (SYNTHROID) 137 MCG Tablet Take 1 Tablet by mouth daily. 90 Tablet 1 02/03/20 25 Active OXYGEN CONCENTRATOR 2 L/min by Does not apply route as needed for Other (shortness of breath). Discontinued(E rror) Phenylephrine-D M-GG-APAP (SUDAFED PE COLD/COUGH PO) Take by mouth. 025 Discontinued(E rror) levothyroxine (SYNTHROID) 112 MCG Tablet Take 1 Tablet by mouth daily. 90 Tablet 1 11/17/19 25 025 Discontinued(R eorder) hydrOXYzine (ATARAX) 25 MG Tablet TAKE 2 TABLETS BY MOUTH TWICE A DAY 90 Tablet 12/24/19 25 025 Discontinued traMADol (ULTRAM) 50 MG TabletIndicatio ns:Pain of upper abdomen Take 1 Tablet by mouth every 8 hours as needed for Moderate or more severe pain. 60 Tablet 12/27/19 25 025 Discontinued(R eorder) pramipexole (MIRAPEX) 0.5 MG TabletIndicatio ns:Restless legs syndrome (RLS) Take 1 Tablet by mouth 2 times daily. 60 Tablet 1 01/01/20 25 025 Discontinued(A lternate therapy) Active Problems Problem Noted Date Diagnosed Date Nocturnal hypoxia 12/15/2024 PND (post-nasal drip) 12/15/2024 Restless legs syndrome (RLS) 12/15/2024 Suicidal ideation 06/26/2024 Pruritus 02/21/2024 Acute metabolic [...] Encounters Date Type Department Care Team Description 02/06/2025 [facility] [place] [facility] [address] [place] [phone] Marco Woods MD Itching 02/03/2025 Results [facility] [address] [place] [phone] Kirsten Niño MD 02/02/2025 Telephone [facility] Endocrinology [facility] [address] [place] [phone] Kirsten Niño MD Results; Medication Management 02/02/2025 Telephone [facility] Endocr[facility]ology - [facility] [address] [place] [phone] Kirsten Niño MD Care Management 01/30/2025 9:00 AM CDT [facility] [address] [place] [phone] Kirsten Niño MD Acquired hypothyroidism (Primary Dx); Osteoporosis, unspecified osteoporosis type, unspecified pathological fracture presence; Hypercalcemia; Hyperparathyroidism (HCC) Discharge Disposition: Discharged to home or Selfcare 01/30/2025 Travel 01/27/2025 [facility]phone [facility] [address] [place] [address] Michelle Mendes APRN, DREW 01/26/2025 [facility] [place] [address] Marco Woods MD Medication Refill 01/26/2025 [facility]ill [facility] [place] [address] Marco Woods MD Medication Refill 01/23/2025 1:58 PM CDT - 01/23/2025 11:59 PM CDT [facility] [address] [place] [address] Michelle Mendes APRN, FILAMENT MAKER Discharge Disposition: Discharged to home or Selfcare 01/23/2025 Travel 01/14/2025 Telephone [facility] [address] [place] [address] Michelle Mendes APRN, DREW 01/08/2025 [facility]phone [facility] [address] [place] [phone] Marco Woods MD Medication Management 01/06/2025 Telephone [facility] [address] [place] [phone] Chantelle Nix APRN, FILAMENT MAKER Constipation; Diarrhea 01/06/2025 [facility]phone [facility] [address] [place] [phone] Marco Woods MD Advice Only 01/05/2025 Refill [facility] [place] [phone] Marco Woods MD Medication Refill 12/30/2024 Telephone [facility] [address] [place] [phone] Michelle Mendes APRN, DREW 12/26/2024 [facility]ill [facility] [address] [place] [phone] Marco Woods MD Medication Refill 12/25/2024 Telephone [facility] Endocrinology [facility] [address] [place] [phone] Kirsten Niño MD Symptom Management 12/25/2024 Nurse Triage [facility] [address] [place] [phone] Marco Woods MD Yeast Infection 12/23/2024 Refill [facility] [place] [phone] Marco Woods MD Medication Refill 12/23/2024 Refill [facility] [address] [place] [phone] Chantelle Nix APRN, DREW Medication Refill 12/15/2024 3:30 PM MANAGER CATH LAB Office [facility] Pulmonology & Sleep Medicine [facility] [address] [place] [phone] Michelle Mendes APRN, DREW Mixed simple and mucopurulent chronic bronchitis (HCC) (Primary Dx); Nocturnal hypoxia; Class 3 severe obesity due to excess calories with serious comorbidity and body mass index (BMI) of 40.0 to 44.9 in adult (HCC); PND (post-nasal drip); Restless legs syndrome (RLS) Discharge Disposition: Discharged to home or Selfcare 12/15/2024 Travel 12/15/2024 [facility]ill [facility] [address] [place] [phone] Marco Woods MD Medication Management 12/04/2024 [facility] [address] [place] [phone] Michelle Mendes APRN, DREW 12/04/2024 Telephone [facility] [address] [place] [phone] Marco Woods MD Advice Only 12/02/2024 3:15 PM MANAGER CATH LAB Office Visit [facility] Family Medicine - [facility] [address] [place] [phone] Marco Woods MD Mixed hyperlipidemia (Primary Dx); Essential hypertension; Pain of upper abdomen Discharge Disposition: Discharged to home or Selfcare 12/02/2024 Travel 12/02/2024 Telephone [facility] Endocrinology [facility] [address] [place] [phone] Kirsten Niño MD Results 12/01/2024 Telephone [facility] [address] [place] [phone] Marco Woods MD Erroneous Encounter - Disregard 12/01/2024 Nurse Triage [facility] [address] [place] [address] [phone] Marco Woods MD Abdominal Pain; Fever; Follow-up 12/01/2024 Telephone [facility] [address] [place] [address] [phone] Marco Woods MD Advice Only 11/28/2024 2:25 PM MANAGER CATH LAB - 11/28/2024 11:59 PM MANAGER CATH LAB [facility] [address] [place] [phone] Dianna Cancino APRN, CNP Discharge Disposition: Discharged to home or Selfcare 11/28/2024 2:01 PM MANAGER CATH LAB - 11/28/2024 2:24 PM MANAGER CATH LAB Hospital [facility] M[facility] [address] [place] [phone] Kirsten Niño MD Discharge Disposition: Discharged to home or Selfcare 11/28/2024 Travel 11/28/[address] [facility] Cardiology Services [address] [place] [phone] Dianna Cancino APRN, CNP Abdominal distention (Primary Dx); Nausea and vomiting, unspecified vomiting type 11/25/2024 Refill [facility] Family Medicine [facility] [address] [place] [phone] Marco Woods MD Medication Refill 11/24/2024 Nurse Triage [facility] [address] [place] [address] [phone] Marco Woods MD Vomiting 11/24/2024 Results Follow-Up [facility] Endocrinology [facility] [address] [place] [phone] Kirsten Niño MD 11/21/2024 Telephone [facility] [address] [place] [phone] Marco Woods MD Advice Only; Medication Problem 11/17/2024 Refill [facility] Endocrinology [facility] [address] [place] [phone] Kirsten Niño MD Medication Refill 11/17/2024 Nurse Triage [facility] [address] [place] [phone] Marco Woods MD Appointment; Abdominal Pain; Abdominal Pressure 11/14/2024 [facility]phone [facility] [address] [place] [phone] Marco Woods MD Medication Refill; Medication Management 11/14/2024 [facility]phone [facility] [address] [place] [phone] Marco Woods MD Erroneous Encounter - Disregard 11/12/2024 Nurse [facility]riage [facility] [address] [place] [phone] Marco Woods MD Follow-up; Dizziness; Cough from Last 3 Months Immunizations Immunization Administration Dates Next Due Covid-19, Mrna, Lnp-s, Pf, 3 0 Mcg/0.3 Ml Dose (AngioSlide) 04/23/2021,03/26/2021 Hepatitis A And Hepatitis B Vaccine [...] e alcohol) [facility] Utilities Answer Date Recorded In the past [...] declined 06/25/2024 How often do you attend presybeterian or cheondoism serv ices? Patient declined 06/25/2024 Do you belong to any clubs o r organizations such as presybeterian groups, unions, fraternal or athletic groups, or [...] Total Score - Questions 1-9 18 10/24 [facility] of Occupat ional Health - Occupational Stress [...] a penitentiary (including now)? Patient declined 11/28/2023 Housing Stability [...] any time in the past 12 m [facility], were you homeless or living in a penitentiary (including now)? Patient unable to answer 06/25/2024 Education Answer Date Recorded What is the highest level of school you have completed or the highest degree you have received? 12th grade 04/03/2023 Sexually Active Control Partners Comments Not Currently Comments No Sex and Gender Information Value Date Recorded Sex Assigned at Female 11/22/2023 11:58 AM MANAGER CATH LAB Legal Sex Female 11:34 PM CDT Gender Identity Female 11/22/2023 11:58 AM MANAGER CATH LAB Sexual Orientation Not on file Occupation Industry Job Start Date Job End Date disabled Not on file Not on file Not on file Last Filed Vital Signs Vital Sign Reading Time Taken Comments Blood Pressure 132/78 01/30/2025 8:50 AM CDT Pulse 78 01/30/2025 8:50 AM CDT Temperature 36.3 C (97.4 F) 01/30/2025 8:50 AM CDT Respiratory Rate 18 01/30/2025 8:50 AM CDT Oxygen Saturation 96% 01/30/2025 8:50 AM CDT Inhaled Oxygen Concentration - - Weight 71.7 kg (158 lb) 01/30/2025 8:50 AM CDT Height 149.9 cm (4' 11 ) 12/15/2024 3:16 PM MANAGER CATH LAB Body Mass Index 31.91 12/15/2024 3:16 PM MANAGER CATH LAB Plan of Treatment Upcoming Encounters Date Type Department Care Team (Late st Contact Info) Description 03/12/2025 8:00 AM CDT [facility] - [facility] [address] [place] [address] Marco Woods MD #2 [facility] [address] [place] [address] 05/11/2025 9:45 AM CDT [facility] Visit [facility] - [facility] [address] [place] [phone] Kirsten Niño MD #2 [facility] [address] [place] [address] 06/19/2025 10:00 AM CDT Office Visit [facility] - Pulmonology & Sleep Medicine - [address] [place] [phone] Michelle Mendes, SLURRY CONTROL OPERATOR HELPER, FILAMENT MAKER [address]2 [facility] [address] [place] [address] Health Maintenance Due Date Last Done Comments Cologuard 2005 Immunochemical Fecal Occult Blood 2005 Hepatitis B Immunization (2 of 3 - Hep B Twinrix 3-dose series) 04/01/2015 03/04/2015 Respiratory Syncytial Virus (RSV) Immunization (Adult) (1 - Risk 60-74 years 1-dose series) 2015 Zoster Immunization (2 of 2) 06/04/2023 04/09/2023 Mammogram 05/08/2024 05/08/2023, 04/2 02/2022, 01/03/2021, Additional history exists SARS-COV-2 Immunization ( season) 2024 08/05/2023, 04/23/2021, 03/26/2021 Influenza Immunization (Season Ended) 2025 08/05/2023, 09/10/2022, 06/09/2021, Additional history exists DEXA Bone Density 11/28/2026 11/28/2024, , 12/04/2017, Additional history exists Colonoscopy 12/11/2027 12/11/2024, 05/24, 08/12/2018 Colorectal Cancer Screening 12/11/2027 Td Immunization Every 10 Years (Adults With 1 Tdap) 07/16/2031 07/16/2021 12/11/2024, 05/24, 08/12/2018 Pneumococcal Immunization (50+ years) Completed 09/10/2022, [...] this topic Medical Devices Implanted Type Area Analog Ic Design Engineer Device Identifier Shelf Expiration Date Model / Serial / Lot Clip 360 Resolution 235cm - [id number] Implanted:Qty: 2 on 07/12/2020 by Dani Garrett DO at [facility] IMPLANT [employer] 05/03/2023 [id number] / [id number] / [id number] Procedures Procedure Name Priority Date/Time Associated Diagnosis Comments THYROXINE (T4) FREE Routine 02/02/2025 6 :09 AM CDT Acquired hypothyroidism THYROID STIMULATING HORMONE (TSH) Routine 02/02/2025 6:09 AM CDT Acquired hypothyroidism COMPLETE PFT W + W/O BRONCHODILATOR Routine 01/23/2025 Mixed simple and mucopurulent chronic bronchitis (HCC) EGD 12/11/2024 12:00 AM MANAGER CATH LAB HM COLONOSCOPY 12/11/2024 12:00 AM MANAGER CATH LAB GASTROENTEROLOGY CONSULT 12/11/2024 12:00 AM MANAGER CATH LAB XR ABDOMINAL SERIES WITH CHEST VIEW Routine 11/28/2024 2:31 PM MANAGER CATH LAB Abdominal distention Nausea and vomiting, unspecified vomiting type [facility] BONE DENSITOMETRY AXIAL SKELETON Routine 11/28/2024 2:24 PM MANAGER CATH LAB Hyperparathyroidism (HCC) Osteoporosis, unspecified osteoporosis type, unspecified pathological fracture presence [facility] SCREENING BILATERAL DIGITAL W CAD W NATALIIA Routine 05/08/2023 12:09 PM CDT Encounter for screening mammogram for malignant neoplasm of breast HEPATITIS PANEL ACUTE (AHP) 02/23/2023 12:00 AM CDT from Last 3 Months or Most Recently Relevant to Health Maintenance Results * THYROXINE (T4) FREE (02/02/2025 6:09 AM CDT) T4 FREE 0.9 0.7 - 1.9 ng/dL 02/02/2025 9:49 AM CDT [facility] Blood Venipuncture / Unknown 02/02/2025 6:09 AM CDT 02/02/2025 7:55 AM CDT us Kirsten Niño MD CHEMISTRY ORDERABLES Final Resul t [facility] [place] [address] * (ABNORMAL) THYROID STIMULATING HORMONE (TSH) (02/02/2025 6:09 AM CDT) TSH 26.413(H) 0.300 - 5.000 mIU/L 02/02/2025 9:49 AM CDT [facility] Blood Venipuncture / Unknown 02/02/2025 6:09 AM CDT 02/02/2025 7:55 AM CDT us Kirsten Niño MD CHEMISTRY ORDERABLES Final Resul t Performing Organization Address [facility] de Phone Number [facility] [address] [place] [address] * GASTROENTEROLOGY CONSULT (12/11/2024 12:00 AM MANAGER CATH LAB) 12/11/2024 us Provider Scan GENERIC SCAN ORDERS CONSULT Lakeisha l Result Performing Organization Address [facility] de Phone Number SCAN * HM COLONOSCOPY (12/11/2024 12:00 AM MANAGER CATH LAB) 12/11/2024 us Provider Scan PROCEDURE/MINOR SURGICAL ORDERAB LES Final Result Performing Organization Address [facility] de Phone Number SCAN * EGD (12/11/2024 12:00 AM MANAGER CATH LAB) Anatomical Region Laterality Modality Endoscopy 12/11/2024 us Provider Scan GI PROCEDURE ORDERABLES Final Re sult * XR ABDOMINAL SERIES WITH CHEST VIEW (11/28/2024 2:31 PM MANAGER CATH LAB) Anatomical Region Laterality Modality Abdomen N/A Digital Radiogra phy 12/02/2024 9:19 AM MANAGER CATH LAB Impressions 12/02/2024 9:22 AM MANAGER CATH LAB IMPRESSION: Mild patchy bibasilar airspace opacities, which is likely related to subsegmental atelectasis/scarring and less likely developing airspace disease. No definite evidence of bowel obstruction. Moderate amount of retained fecal debris in the colon, which is concerning for constipation. Narrative 12/02/2024 9:22 AM MANAGER CATH LAB EXAM DESCRIPTION: XR ABDOMINAL SERIES WITH CHEST [...] Lokesh Antoine D.O. PS: PS Report ID: [id number] Reading Location: [id number] Procedure Note Lokesh Antoine DO - 12/02/2024 [...] Lokesh Antoine D.O. PS: PS Report ID: [id number] Reading Location: [id number] IMPRESSION: Mild patchy bibasilar airspace opacities, which is likely related to subsegmental atelectasis/scarring and less likely developing airspace disease. No definite evidence of bowel obstruction. Moderate amount of retained fecal debris in the colon, which is concerning for constipation. us Dianna Cancino APRN, CNP IMG DIAGNOSTIC ORDERABLE S Final Result * YU BONE DENSITOMETRY AXIAL SKELETON (11/28/2024 2:24 PM MANAGER CATH LAB) Anatomical Region Laterality Modality BODY N/A Computed Radiogr aphy 12/01/2024 9:02 AM MANAGER CATH LAB Impressions 12/01/2024 9:05 AM MANAGER CATH LAB IMPRESSION: Low bone mass REFERENCE: Bone mineral [...] of Osteoporosis (http://www.nof.org/professionals/clinical-guidelines) Narrative 12/01/2024 9:05 AM MANAGER CATH LAB EXAM DESCRIPTION: YU BONE DENSITOMETRY AXIAL SKELETON REASON FOR STUDY: 69 y/o year old F with given history of: Hyperparathyroidism. Postmenopausal status. History of prior fracture and secondary osteoporosis. Patient previously took vitamin-D. Patient takes Prolia. Analog Ic Design Engineer/Model: [id number] (S/N [id number]) Facility LSC value of 0.028 for the [...] Kaitlin Weems M.D. TW: FRANC Report ID: [id number] Reading Location: [id number] Procedure Note Kaitlin Weems MD - 12/01/2024 EXAM DESCRIPTION: YU BONE DENSITOMETRY AXIAL SKELETON REASON FOR STUDY: 69 y/o year old F with given history of: Hyperparathyroidism. Postmenopausal status. History of prior fracture and secondary osteoporosis. Patient previously took vitamin-D. Patient takes Prolia. Analog Ic Design Engineer/Model: FIMBex (S/N [id number]) Facility LSC value of 0.028 for the [...] Kaitlin Weems M.D. TW: TW Report ID: [id number] Reading Location: [id number] IMPRESSION: Low bone mass REFERENCE: Bone mineral [...] MD IMG DEXA ORDERABLES Final Result * [facility] SCREENING BILATERAL DIGITAL W CAD W NATALIIA [...] to exams dated: 01/03/2021, 02/13/2022, and 02/06/2018 [facility]. BREAST TISSUE:The tissue of both breasts is [...] exam. Electronically signed by: Claudia guevara/penrad:05/08/2023 19:31:07 Electromechanisms Design Drafter(s): RT Tuan(R)(M), [facility] letter sent: Normal Exam Reading location: [facility] BI-RADS: 2 Benign Procedure Note [...] to exams dated: 01/03/2021, 02/13/2022, and 02/06/2018 [facility]. BREAST TISSUE:The tissue of both breasts is [...] next screening exam. Electronically signed by: Claudia guevara/pencecilia:05/08/2023 19:31:07 Electromechanisms Design Drafter(s): Hailee Davis, RT(R)(M), [facility] letter sent: Normal Exam Reading location: [...] Documents on File Type Date Recorded Patient Derrick Car Operator Expl anation Power of Marketing Communications Specialist for Health Care 11/27/2022 5:01 PM POA-HC, 11/26/2022 POLST/POST/CO DNR 11/27/2022 5:01 PM POLST, 11/26/2022 Other [...] measures to stabilize the patient. Care Teams Customer Care Team Coach Relationship Specialty Start Date End Date Marco Woods MD #[address] [address] PCP - General Family Medicine 11/22/17 Kirsten Niño MD #2 [facility] [address] [place] [phone] Consulting Physician Endocrinology 07/17/22 Chin Burrows MD #2 [facility] [address] [place] [phone] Consulting Physician General Surgery 11/22/22 Michelle Mendes APRN, FILAMENT MAKER #2 [facility] [address] [place] [address] Nurse Practitioner Advanced Practice Nurse 08/14/22 Chantelle Nix APRN, FILAMENT MAKER [address] [place] [address] Nurse Practitioner Advanced Practice Nurse 02/19/24
--- OUTSIDE RECORDS SUMMARY | 2025-02-06 10:07 | XMS_ITS | Encounter Summary ---
Author Organization [facility] Address [address] [place] [address] Phone Care Team Providers Care Disciplinary Hearing Officer Name Role Phone Marco Woods MD Primary Care Provider [phone] Kirsten Niño MD Unavailable Chin Burrows MD Unavailable Michelle Mendes APRN, SENIOR PROCESS ENGINEER Unavailable [phone] Chantelle Nix ALTERATION WORKER, SENIOR PROCESS ENGINEER Unavailable Reason for Visit * Reason Comments Medication Refill Encounter Details Date Type Department Care Team (Late st Contact Info) Description 12/26/2023 Refill [facility] - Family Medicine - [place] [address] [place] [phone] Marco Woods MD [id number] [address] Medication Refill Social History Tobacco Use Types Packs/Day Years Used Date Smoking Tobacco: Never Smokeless Tobacco: Never Alcohol Use Standard Drinks/Week Comments Not Currently 0 (1 standard drink = 0.6 oz pur e alcohol) [facility] Utilities Answer Date Recorded [...] declined 11/28/2023 How often do you attend orthodox or buddhist serv ices? Patient declined 11/28/2023 Do you [...] Total Score - Questions 1-9 18 10/24 [facility] - [...] place to sleep or slept in a assisted (including now)? Patient declined 11/28/2023 Education Answer Date Recorded What is the highest level of school you have completed or the highest degree you have received? 12th grade 04/03/2023 Sexually Active Control Partners Comments Not Currently Comments No Sex and Gender Information Value Date Recorded Sex Assigned at Female 11/22/2023 11:58 AM HEALTH NURSE Legal Sex Female 11:34 PM CDT Gender Identity Female 11/22/2023 11:58 AM HEALTH NURSE Sexual Orientation Not on file Occupation Industry Job Start Date Job End Date disabled Not on file Not on file Not on file documented as of this encounter Miscellaneous Notes * Telephone Encounter - Amada Orozco RN - 12/27/2023 11:05 AM CST Pt should be getting this from psych. Dr Galeana is a psychiatrist. TH NURSE * Telephone Encounter - Amada Orozco RN - 12/27/2023 11:02 AM CST Images from the original note were not included. [place] [facility] Dispensed Days Supply Quantity Provider Pharmacy LITHIUM CARBONATE ER 300 MG TBCR 11/29/2023 28 56 Tablet Maria Antonia Galeana MD [facility] [place] -Alt... LITHIUM CARBONATE ER 300 MG TBCR 11/06/2023 28 56 Tablet Maria Antonia Galeana MD [facility] [place] -Alt... TH NURSE documented in this encounter Plan of Treatment Upcoming Encounters Date Type Department Care Team (Late st Contact Info) Description 03/12/2025 8:00 AM CDT Office Visit [facility] - Family Medicine - [place] #2 [place] [address] Marco Woods MD #2 [facility] [address] [place] [address] 05/11/2025 9:45 AM CDT Office Visit [facility] Endocrinology - [place] #2 [facility] [address] Kirsten Niño MD #2 [facility] [address] [place] [address] 06/19/2025 10:00 AM CDT Office Visit [facility] - Pulmonology & Sleep Medicine - [place] #2 [place] [address] Michelle Mendes APRN, SENIOR PROCESS ENGINEER #2 [facility] [address] [place] [address] documented as of this encounter Visit Diagnoses Not on filedocumented in this encounter Additional Health Concerns Infection Onset Date Last Indicated Resolved Time COVID - 19 06/25/2024 06/25/2024 06/25/2024 6:36 PM CDT Assessment Noted Time PHQ-9 Depression Total Score: 18 024 10:00 AM HEALTH NURSE documented as of this encounter Care Teams Disciplinary Hearing Officer Relationship Specialty Start Date End Date Marco Woods MD #2 [facility] [address] [place] [address] PCP - General Family Medicine 11/22/17 Kirsten Niño MD #2 [facility] [address] [place] [address] Consulting Physician Endocrinology 07/17/22 Chin Burrows MD #2 [facility] [address] [place] [address] Consulting Physician General Surgery 11/22/22 Michelle Mendes APRN, SENIOR PROCESS ENGINEER #2 [facility] [address] [place] [address] Nurse Practitioner Advanced Practice Nurse 08/14/22 Chantelle Nix APRN, SENIOR PROCESS ENGINEER #2 [place] [address] Nurse Practitioner Advanced Practice Nurse 02/19/24 documented as of this encounter
--- OUTSIDE RECORDS SUMMARY | 2025-02-06 10:07 | XMS_ITS | Encounter Summary ---
Author Organization [facility] Address [address] [place] [address] Phone Care Team Providers Care Medical Cash Poster Name Role Phone Marco Woods MD Primary Care Provider Kirsten Niño MD Unavailable Chin Burrows MD Unavailable Kelsea Root RN Unavailable Unavailable Michelle Mendes APRN, CHILD CARE ATTENDANT Unavailable [phone] Chantelle Nix APRN, CHILD CARE ATTENDANT Unavailable Reason for Visit * Reason Comments Medication Refill Encounter Details Date Type Department Care Team (Late st Contact Info) Description 07/21/2023 [facility]ill [facility] - Family Medicine - [place] #2 [place] [phone] Marco Woods MD [address] [address] Medication Refill Social History Tobacco Use Types [...] Sex Assigned at Female 11/22/2023 11:58 AM TANK MAKER WOOD Legal Sex Female 11:34 PM CDT Gender Identity Female 11/22/2023 11:58 AM TANK MAKER WOOD Sexual Orientation Not on file Occupation Industry [...] Description 03/12/2025 8:00 AM CDT Office Visit [facility] - Family Medicine - [place] #2 [place] [address] Marco Woods MD #2 [facility] [address] [place] [address] 05/11/2025 9:45 AM CDT Office Visit [facility] Group - Endocrinology - [place] #2 [place] [address] Kirsten Niño MD #2 [facility] [address] [place] [address] 06/19/2025 10:00 AM CDT [facility] - Pulmonology & Sleep Medicine - [place] #2 [place] [address] Michelle Mendes APRN, CHILD CARE ATTENDANT #2 [facility] [address] [place] [address] documented as of this encounter Visit Diagnoses Not on filedocumented in this encounter Additional Health Concerns Infection Onset Date Last Indicated Resolved Time COVID - 19 11/01/2023 11/01/2023 11/11/2023 12:1 6 AM TANK MAKER WOOD COVID - 19 06/25/2024 06/25/2024 06/25/2024 6:36 PM CDT Assessment Noted Time PHQ-9 Depression Total Score: 0 11/22/19 10:00 AM TANK MAKER WOOD documented as of this encounter Care Teams Medical Cash Poster Relationship Specialty Start Date End Date Marco Woods MD #[address] [facility] [facility] [address] [place] [address] PCP - General Family Medicine 11/22/17 Kirsten Niño MD #2 [facility] [address] [place] [address] Consulting Physician Endocrinology 07/17/22 Chin Burrows MD #[address] [address] Consulting Physician General Surgery 11/22/22 Kelsea Root RN [place] Supervisor Rework 06/15/23 08/26/23 Michelle Mendes APRN, CHILD CARE ATTENDANT #2 [facility] [address] [place] [address] Nurse Practitioner Advanced Practice Nurse 08/14/22 Chantelle Nix APRN, CHILD CARE ATTENDANT #2 [place] [address] Nurse Practitioner Advanced Practice Nurse 02/19/24 documented as of this encounter
--- OUTSIDE RECORDS SUMMARY | 2025-02-06 10:08 | XMS_ITS | Encounter Summary ---
Author Organization [facility] Address [address] [place] [address] Phone Care Team Providers Care Auto Glass Technician Name Role Phone Marco Woods MD Primary Care Provider [phone] Kirsten Niño MD Unavailable Chin Burrows MD Unavailable Kelsea Root RN Unavailable Unavailable Michelle Mendes APRN, MASCARA MOLDER Unavailable Chantelle Nix APRN, MASCARA MOLDER Unavailable Encounter Details Date Type Department Care Team (Late st Contact Info) Description 11/07/2022 [facility] 1 [place] [address] Chin Burrows MD #[address] [address] Pre-op testing (Primary Dx) Social History Tobacco Use Types Packs/Day Years Used Date Smoking Tobacco: Never Smokeless Tobacco: Never Alcohol Use Standard Drinks/Week Comments Not Currently 0 (1 standard drink = 0.6 oz pur e alcohol) Sexually Active Control Partners Comments Not Currently Comments No Sex and Gender Information Value Date Recorded Sex Assigned at Female 11/22/2023 11:58 AM HEAVY EQUIPMENT OPERATING ENGINEER Legal Sex Female 11:34 PM CDT Gender Identity Female 11/22/2023 11:58 AM HEAVY EQUIPMENT OPERATING ENGINEER Sexual Orientation Not on file Occupation Industry Job Start Date Job End Date disabled Not on file Not on file Not on file COVID-19 Exposure Response Date Recorded In the last 10 days, have yo u been in contact with someone who was confirmed or suspected to have Coronavirus/COVID-19? No / Unsure 11/07/2022 1:33 PM HEAVY EQUIPMENT OPERATING ENGINEER documented as of this encounter Plan of Treatment Upcoming Encounters Date Type Department Care Team (Late st Contact Info) Description 03/12/2025 8:00 AM CDT Office Visit [facility] - Family Medicine - [place] #2 [place] [address] Marco Woods MD #2 [facility] [address] [place] [address] 05/11/2025 9:45 AM CDT Office Visit [facility] - Endocrinology - [place] #2 [place] [address] Kirsten Niño MD #2 [facility] [address] [place] [address] 06/19/2025 10:00 AM CDT [facility] - Pulmonology & Sleep Medicine - [place] #2 [place] [address] Michelle Mendes APRN, MASCARA MOLDER #2 [facility] [address] [place] [address] documented as of this encounter Results * SARS-COV-2 BY MOLECULAR (11/13/2022 6:21 AM HEAVY EQUIPMENT OPERATING ENGINEER) SARSCOV2 NOT DETECTED (Referenc e Range for this test is Not Detected) [facility] LEACH ID NOW 11/13/2022 7:17 AM HEAVY EQUIPMENT OPERATING ENGINEER [email or web address] LAB Comment:This test was perfor med by a MOLECULAR, NON-PCR method Other NASOPHARYNGEAL STRUCTURE / Unknown Non-Phlebotomy Collection / Unknown 11/13/2022 6:21 AM HEAVY EQUIPMENT OPERATING ENGINEER 11/13/2022 7:02 AM HEAVY EQUIPMENT OPERATING ENGINEER Narrative [facility] [[email or web address] - 11/13/2022 7:17 AM HEAVY EQUIPMENT OPERATING ENGINEER This test has been authorized by the [...] information for Clinicians can be found at: https://www.fda.gov/media/338863/download Additional information for Patients can be found at: https://www.fda.gov/media/663133/download Chin Burrows MD MICROBIOLOGY - GENERA L ORDERABLES Final Result [facility] #1 [place] [address] documented in this encounter Visit Diagnoses Diagnosis Pre-op testing- Primary Preoperative examination, unspecified documented in this encounter Additional Health Concerns Infection Onset Date Last Indicated Resolved Time COVID - 19 11/20/2022 11/20/2022 11/24/2022 8:51 AM HEAVY EQUIPMENT OPERATING ENGINEER COVID - 19 12/31/2022 12/31/2022 01/10/2023 12:1 8 AM CDT COVID - 19 Confirmed 12/31/2022 12/31/2022 023 12:17 AM CDT COVID - 19 06/01/2023 06/01/2023 06/01/2023 8:16 AM CDT COVID - 19 11/01/2023 11/01/2023 11/11/2023 12:1 6 AM HEAVY EQUIPMENT OPERATING ENGINEER COVID - 19 06/25/2024 06/25/2024 06/25/2024 6:36 PM CDT Assessment Noted Time PHQ-9 Depression Total Score: 0 11/22/19 18 10:00 AM HEAVY EQUIPMENT OPERATING ENGINEER documented as of this encounter Care Teams Auto Glass Technician Relationship Specialty Start Date End Date Marco Woods MD #2 [facility] [address] [place] [address] PCP - General Family Medicine 11/22/17 Kirsten Nñio MD #2 [facility] [address] [place] [address] Consulting Physician Endocrinology 07/17/22 Chin Burrows MD #2 [facility] [address] [place] [address] Consulting Physician General Surgery 11/22/22 Kelsea Root RN [place] Brazing Machine Operator Automatic 06/15/23 08/26/23 Michelle Mendes APRN, MASCARA MOLDER #2 [facility] [address] [place] [address] Nurse Practitioner Advanced Practice Nurse 08/14/22 Chantelle Nix APRN, MASCARA MOLDER #2 [place] [address] Nurse Practitioner Advanced Practice Nurse 02/19/24 documented as of this encounter
--- OUTSIDE RECORDS SUMMARY | 2025-02-06 10:08 | XMS_ITS | Encounter Summary ---
Author Organization [facility] Address [address] [place] [address] Phone Care Team Providers Care Microwave Engineer Name Role Phone Marco Woods MD Primary Care Provider [phone] Kirsten Niño MD Unavailable Chin Burrows MD Unavailable Kelsea Root RN Unavailable Unavailable Michelle Mendes APRN, FINANCIAL REP Unavailable [phone] Chantelle Nix APRN, FINANCIAL REP Unavailable Reason for Visit * Reason Comments Medication Refill Encounter Details Date Type Department Care Team (Late st Contact Info) Description 05/09/2023 Refill [facility] - Family Medicine - [place] #2 [place] [phone] Marco Woods MD #[address] [address] Medication Refill Social History Tobacco Use Types [...] Sex Assigned at Female 11/22/2023 11:58 AM SHOE CASER Legal Sex Female 11:34 PM CDT Gender Identity Female 11/22/2023 11:58 AM SHOE CASER Sexual Orientation Not on file Occupation Industry [...] reordered on 05/10/2023 by Mirtha Steiner APRN, FINANCIAL REP. * Telephone Encounter - Amada Orozco RN - 05/10/2023 1:50 PM CDT duplicate * Telephone Encounter - Lesly Danielle RN - 05/09/2023 3:08 PM CDT Duplicate request documented in this encounter Plan of Treatment Upcoming Encounters Date Type Department Care Team (Late st Contact Info) Description 03/12/2025 8:00 AM CDT [facility] - Family Medicine [facility] #[address] [place] [address] Marco Woods MD #[address] [address] 05/11/2025 9:45 AM CDT Office Visit [facility] - Endocrinology - [place] #2 [place] [address] Kirsten Niño MD #2 [facility] [address] [place] [address] 06/19/2025 10:00 AM CDT Office Visit [facility] - Pulmonology & Sleep Medicine - [place] #2 [facility] [place] [address] Michelle Mendes APRN, FINANCIAL REP #2 [facility] [address] [place] [address] documented as of this encounter Visit Diagnoses Diagnosis Anxiety Anxiety state, unspecified documented in this encounter Additional Health Concerns Infection Onset Date Last Indicated Resolved Time COVID - 19 06/01/2023 06/01/2023 06/01/2023 8:16 AM CDT COVID - 19 11/01/2023 11/01/2023 11/11/2023 12:1 6 AM SHOE CASER COVID - 19 06/25/2024 06/25/2024 06/25/2024 6:36 PM CDT Assessment Noted Time PHQ-9 Depression Total Score: 0 11/22/19 10:00 AM SHOE CASER documented as of this encounter Care Teams Microwave Engineer Relationship Specialty Start Date End Date Marco Woods MD #2 [facility] [address] [place] [address] PCP - General Family Medicine 11/22/17 Kirsten Niño MD #2 [facility] [address] [place] [address] Consulting Physician Endocrinology 07/17/22 Chin Burrows MD #2 [facility] [address] [place] [address] Consulting Physician General Surgery 11/22/22 Kelsea Root, RN [place] Finisher Merchant Products 06/15/23 08/26/23 Michelle Mendes APRN, FINANCIAL REP #[address] [address] Nurse Practitioner Advanced Practice Nurse 08/14/22 Chantelle Nix APRN, FINANCIAL REP #[address] [place] [address] Nurse Practitioner Advanced Practice Nurse 02/19/24 documented as of this encounter
--- OUTSIDE RECORDS SUMMARY | 2025-02-06 10:08 | XMS_ITS | Encounter Summary ---
Author Organization [facility] Address [address] [place] [address] Phone Care Team Providers Care Director Clinical Data Name Role Phone Marco Woods MD Primary Care Provider [phone] Kirsten Niño MD Unavailable Chin Burrows MD Unavailable [phone] Michelle Mendes APRN, MOTOR VEHICLES INSPECTOR Unavailable Chantelle Nix NANOTECHNOLOGY ENGINEERING TECHNOLOGIST, MOTOR VEHICLES INSPECTOR Unavailable Reason for Visit * Reason Comments Medication Refill Encounter Details Date Type Department Care Team (Late st Contact Info) Description 01/01/2024 Refill [facility] - Family Medicine - [place] #[address] [place] [address] Marco Woods MD #[address] [address] Medication Refill Social History Tobacco Use Types Packs/Day Years Used Date Smoking Tobacco: Never Smokeless Tobacco: Never Alcohol Use Standard Drinks/Week Comments Not Currently 0 (1 standard drink = 0.6 oz pur e alcohol) [facility] Utilities Answer Date Recorded In the [...] declined 11/28/2023 How often do you attend denominational or tenriism serv ices? Patient declined 11/28/2023 Do you belong to any clubs o r organizations such as denominational groups, unions, fraternal or athletic groups, or [...] Total Score - Questions 1-9 18 10/24 [facility] of Occupat ional Health - Occupational [...] place to sleep or slept in a correction (including now)? Patient declined 11/28/2023 Education Answer Date Recorded What is the highest level of school you have completed or the highest degree you have received? 12th grade 04/03/2023 Sexually Active Control Partners Comments Not Currently Comments No Sex and Gender Information Value Date Recorded Sex Assigned at Female 11/22/2023 11:58 AM MORTUARY OPERATIONS MANAGER Legal Sex Female 11:34 PM CDT Gender Identity Female 11/22/2023 11:58 AM MORTUARY OPERATIONS MANAGER Sexual Orientation Not on file Occupation Industry Job Start Date Job End Date disabled Not on file Not on file Not on file documented as of this encounter Miscellaneous Notes * Telephone Encounter - Amada Orozco RN - 01/01/2024 2:40 PM CDT gned Yesterday (12/31/2023): Kmovbkfvhdw-Adcgotvgc-Lndrbr (Trelegy Ellipta) 100-62.5-25 MCG/ACT AEROSOL POWDER, BREATH ACTIVATED Sig: take 1 Puff by inhalation daily. Disp: 60 Each Refills: 3 Signed by: Mcihelle Mendes APRN, CNP documented in this encounter Plan of Treatment Upcoming Encounters Date Type Department Care Team (Late st Contact Info) Description 03/12/2025 8:00 AM CDT Office Visit [facility] - Family Medicine [place] #2 [place] [address] Marco Woods MD #2 [facility] [address] [place] [address] 05/11/2025 9:45 AM CDT Office Visit [facility] - Endocrinology - [place] #2 [place] [address] Kirsten Niño MD #[address] [place] [address] 06/19/2025 10:00 AM CDT Office Visit [facility] - Pulmonology & Sleep Medicine [facility] #2 [place] [address] Michelle Mendes APRN, MOTOR VEHICLES INSPECTOR #2 [facility] [address] [place] [address] documented as of this encounter Visit Diagnoses Not on filedocumented in this encounter Additional Health Concerns Infection Onset Date Last Indicated Resolved Time COVID - 19 06/25/2024 06/25/2024 06/25/2024 6:36 PM CDT Assessment Noted Time PHQ-9 Depression Total Score: 18 024 10:00 AM MORTUARY OPERATIONS MANAGER documented as of this encounter Care Teams Director Clinical Data Relationship Specialty Start Date End Date Marco Woods MD #[address] [address] PCP - General Family Medicine 11/22/17 Kirsten Niño MD #[address] [address] Consulting Physician Endocrinology 07/17/22 Chin Burrows MD #2 [facility] [address] [place] [address] Consulting Physician General Surgery 11/22/22 Michelle Mendes APRN, MOTOR VEHICLES INSPECTOR #2 [facility] [address] [place] [address] Nurse Practitioner Advanced Practice Nurse 08/14/22 Chantelle Nix APRN, MOTOR VEHICLES INSPECTOR #2 [place] [address] Nurse Practitioner Advanced Practice Nurse 02/19/24 documented as of this encounter
--- OUTSIDE RECORDS SUMMARY | 2025-02-06 10:08 | XMS_ITS | Encounter Summary ---
Author Organization [facility] Address [address] [place] [address] Phone Care Team Providers Care Integration Software Engineer Name Role Phone Marco Woods MD Primary Care Provider [phone] Kirsten Niño MD Unavailable Chin Burrows MD Unavailable [phone] Kelsea Root RN Unavailable Unavailable Michelle Mendes APRN, CAMPUS REP Unavailable Chantelle Nix APRN, CAMPUS REP Unavailable Encounter Details Date Type Department Care Team (Late st Contact Info) Description 06/05/2023 Telephone [facility] Med Surg [address] [address] Sister Elisabeth Gonzalez, RN [place] [...] Sex Assigned at Female 11/22/2023 11:58 AM ESTIMATOR AND DRAFTER SUPERVISOR Legal Sex Female 11:34 PM CDT Gender Identity Female 11/22/2023 11:58 AM ESTIMATOR AND DRAFTER SUPERVISOR Sexual Orientation Not on file Occupation [...] Description 03/12/2025 8:00 AM CDT [facility] - Family Medicine - [place] #2 [place] [address] Marco Woods MD #2 [facility] [address] [place] [address] 05/11/2025 9:45 AM CDT [facility] - Endocrinology - [place] #2 [place] [address] Kirsten Niño MD #2 [facility] [address] [place] [address] 06/19/2025 10:00 AM CDT Office Visit [facility] - Pulmonology & Sleep Medicine [facility] #2 [place] [address] Michelle Mendes APRN, CAMPUS REP #2 [facility] [address] [place] [address] documented as of this encounter Visit Diagnoses Not on filedocumented in this encounter Additional Health Concerns Infection Onset Date Last Indicated Resolved Time COVID - 19 11/01/2023 11/01/2023 11/11/2023 12:1 6 AM ESTIMATOR AND DRAFTER SUPERVISOR COVID - 19 06/25/2024 06/25/2024 06/25/2024 6:36 PM CDT Assessment Noted Time PHQ-9 Depression Total Score: 0 11/22/19 10:00 AM ESTIMATOR AND DRAFTER SUPERVISOR documented as of this encounter Care Teams Integration Software Engineer Relationship Specialty Start Date End Date Marco Woods MD #2 [facility] [address] [place] [address] PCP - General Family Medicine 11/22/17 Kirsten Niño MD #2 [facility] [address] [place] [address] Consulting Physician Endocrinology 07/17/22 Chin Burrows MD #2 [facility] [address] [place] [address] Consulting Physician General Surgery 11/22/22 Kelsea Root RN [place] Floor Helper 06/15/23 08/26/23 Michelle Mendes APRN, CAMPUS REP #2 [facility] [address] [place] [address] Nurse Practitioner Advanced Practice Nurse 08/14/22 Chantelle Nix APRN, CAMPUS REP #2 [place] [address] Nurse Practitioner Advanced Practice Nurse 02/19/24 documented as of this encounter
--- OUTSIDE RECORDS SUMMARY | 2025-02-06 10:08 | XMS_ITS | Encounter Summary ---
Author Organization [facility] Address [address] [place] [address] Phone Care Team Providers Care Media Production Manager Name Role Phone Marco Woods MD Primary Care Provider Kirsten Nioñ MD Unavailable Chin Burrows MD Unavailable Kelsea Root RN Unavailable Unavailable Michelle Mendes APRN, PRIVACY OFFICER Unavailable [phone] Chantelle Nix APRN, PRIVACY OFFICER Unavailable Reason for Visit * Reason Comments Medication Refill Encounter Details Date Type Department Care Team (Late st Contact Info) Description 05/27/2023 [facility]ill [facility] - [facility] Medicine - [place] #[address] [place] [id number] Marco Woods MD [address] [address] Medication Refill Social History Tobacco Use Types [...] Sex Assigned at Female 11/22/2023 11:58 AM AUTOMATION CONSULTANT Legal Sex Female 11:34 PM CDT Gender Identity Female 11/22/2023 11:58 AM AUTOMATION CONSULTANT Sexual Orientation Not on file Occupation Industry [...] [place] 08/29/22 Office Visit Ronald Shaffer APRN, PRIVACY OFFICER [facility] Showing recent visits within past 365 days and meeting all other requirements Future Appointments Date Type Provider Dept 08/02/23 Appointment Marco Woods MD [facility] 08/07/23 Appointment Marco Woods MD [facility] Showing future appointments within next 90 days and meeting all other requirements documented in this encounter Plan of Treatment Upcoming Encounters Date Type Department Care Team (Late st Contact Info) Description 03/12/2025 8:00 AM CDT Office Visit [facility] Medical [facility] - Family Medicine - [place] #[address] [place] [address] Marco Woods MD #2 [facility] [address] [place] [address] 05/11/2025 9:45 AM CDT Office Visit [facility] - Endocrinology - [place] #[address] [place] [address] Kirsten Niño MD #2 [facility] [address] [place] [address] 06/19/2025 10:00 AM CDT Office Visit [facility] Medical [facility] - Pulmonology & Sleep Medicine [facility] [place] [address] Michelle Mendes APRN, DREW #2 [facility] [address] [place] [address] documented as of this encounter Visit Diagnoses Diagnosis Primary insomnia Persistent disorder of initiating or maintaining sleep documented in this encounter Additional Health Concerns Infection Onset Date Last Indicated Resolved Time COVID - 19 06/01/2023 06/01/2023 06/01/2023 8:16 AM CDT COVID - 19 11/01/2023 11/01/2023 11/11/2023 12:1 6 AM AUTOMATION CONSULTANT COVID - 19 06/25/2024 06/25/2024 06/25/2024 6:36 PM CDT Assessment Noted Time PHQ-9 Depression Total Score: 0 11/22/19 10:00 AM AUTOMATION CONSULTANT documented as of this encounter Care Teams Media Production Manager Relationship Specialty Start Date End Date Marco Woods MD #2 [facility] [address] [place] [address] PCP - General Family Medicine 11/22/17 Kirsten Niño MD #2 [facility] [address] [place] [address] Consulting Physician Endocrinology 07/17/22 Chin Burrows MD #2 [facility] [address] [place] [address] Consulting Physician General Surgery 11/22/22 Kelsea Root, RN [place] Powerhouse Helper 06/15/23 08/26/23 Michelle Mendes APRN, PRIVACY OFFICER #2 [facility] [address] [place] [address] Nurse Practitioner Advanced Practice Nurse 08/14/22 Chantelle Nix APRN, PRIVACY OFFICER #2 [place] [address] Nurse Practitioner Advanced Practice Nurse 02/19/24 documented as of this encounter
--- OUTSIDE RECORDS SUMMARY | 2025-02-06 10:08 | XMS_ITS | Encounter Summary ---
Author Organization [facility] Address [address] [place] [address] Phone Care Team Providers Care Dental Hygiene Administrative Assistant Name Role Phone Marco Woods MD Primary Care Provider Kirsten Niño MD Unavailable Chin Burrows MD Unavailable [phone] Kelsea Root RN Unavailable Unavailable Michelle Mendes APRN, MANAGER OF ORGANIZATIONAL DEVELOPMENT Unavailable [phone] Chantelle Nix APRN, MANAGER OF ORGANIZATIONAL DEVELOPMENT Unavailable Reason for Visit * Reason Comments Medication Refill Encounter Details Date Type Department Care Team (Late st Contact Info) Description 08/06/2021 [facility] [address] [place] [address] Marco Woods MD #2 [facility] [place] [address] Medication Refill Social History Tobacco Use Types Packs/Day Years Used Date Smoking Tobacco: Never Smokeless Tobacco: Former Alcohol Use Standard Drinks/Week Comments Not Currently 0 (1 standard drink = 0.6 oz pur e alcohol) Sexually Active Control Partners Comments Not Currently Comments No Sex and Gender Information Value Date Recorded Sex Assigned at Female 11/22/2023 11:58 AM ERGONOMIC SPECIALIST Legal Sex Female 11:34 PM CDT Gender Identity Female 11/22/2023 11:58 AM ERGONOMIC SPECIALIST Sexual Orientation Not on file Occupation [...] [place] 12/21/20 Telemedicine Mirtha Steiner APN, DREW [facility] [place] 11/09/20 Office Visit Marco Woods MD [...] 8:00 AM CDT Office Visit [facility] - Family Medicine - [place] #2 [place] [address] Marco Woods MD #2 [facility] [address] [place] [address] 05/11/2025 9:45 AM CDT Office Visit [facility] - Endocrinology - [place] #2 [facility] [place] [address] Kirsten Nñio MD #2 [facility] [address] [place] [address] 06/19/2025 10:00 AM CDT Office Visit [facility] Medical [facility] - Pulmonology & Sleep Medicine - [place] #2 [facility] [place] [address] Michelle Mendes APRN, MANAGER OF ORGANIZATIONAL DEVELOPMENT #2 [facility] [address] [place] [address] documented as of this encounter Visit Diagnoses Not on filedocumented in this encounter Additional Health Concerns Infection Onset Date Last Indicated Resolved Time COVID - 19 06/29/2022 06/29/2022 07/09/2022 12:1 6 AM CDT COVID - 19 11/20/2022 11/20/2022 11/24/2022 8:51 AM ERGONOMIC SPECIALIST COVID - 19 12/31/2022 12/31/2022 01/10/2023 12:1 8 AM CDT COVID - 19 Confirmed 12/31/2022 12/31/2022 023 12:17 AM CDT COVID - 19 06/01/2023 06/01/2023 06/01/2023 8:16 AM CDT COVID - 11/01/2023 11/01/2023 11/11/2023 12:1 6 AM ERGONOMIC SPECIALIST COVID - 06/25/2024 06/25/2024 06/25/2024 6:36 PM CDT Assessment Noted Time PHQ-9 Depression Total Score: 0 11/22/19 10:00 AM ERGONOMIC SPECIALIST documented as of this encounter Care Teams Dental Hygiene Administrative Assistant Relationship Specialty Start Date End Date Marco Woods MD #2 [facility] [address] [place] [address] PCP - General Family Medicine 11/22/17 Kirsten Niño MD #2 [facility] [address] [place] [address] Consulting Physician Endocrinology 07/17/22 Chin Burrows MD #2 [facility] [address] [place] [address] Consulting Physician General Surgery 11/22/22 Kelsea Root, RN [place] Dubbing Machine Operator 06/15/23 08/26/23 Michelle Mendes APRN, MANAGER OF ORGANIZATIONAL DEVELOPMENT #2 [facility] [address] [place] [address] Nurse Practitioner Advanced Practice Nurse 08/14/22 Chantelle Nix APRN, MANAGER OF ORGANIZATIONAL DEVELOPMENT #2 [place] [address] Nurse Practitioner Advanced Practice Nurse 02/19/24 documented as of this encounter
--- OUTSIDE RECORDS SUMMARY | 2025-02-06 10:08 | XMS_ITS | Clinical Summary ---
[facility] Address [address] [place] [address] Care Team Providers Care Minibus Driver Name Role Phone Nikhil Robles MD Primary Care Provider [phone] Allergies Active Allergy Reactions Criticality Noted Date [...] Nasal saline spray (Simply saline, Little Remedies, [place], [place]) 2 second sprays or 2 squeezes into [...] on file Legal Sex Female 6:03 PM RESEARCH WORKER ENCYCLOPEDIA Gender Identity Not on file Sexual Orientation Not on file Obstetrics History Last Filed Vital Signs Vital Sign Reading Time Taken Comments Blood Pressure 170/75 09/19/2023 10:51 AM RESEARCH WORKER ENCYCLOPEDIA Pulse 114 09/19/2023 2:00 PM RESEARCH WORKER ENCYCLOPEDIA Temperature 36.6 C (97.8 F) 09/19/2023 10:51 AM RESEARCH WORKER ENCYCLOPEDIA Respiratory Rate 18 09/19/2023 10:51 AM RESEARCH WORKER ENCYCLOPEDIA Oxygen Saturation 98% 09/19/2023 10:51 AM RESEARCH WORKER ENCYCLOPEDIA Inhaled Oxygen Concentration - - Weight 80.3 kg (177 lb) 09/18/2023 3:16 PM RESEARCH WORKER ENCYCLOPEDIA Height 157.5 cm (5' 2 ) 09/18/2023 3:16 PM RESEARCH WORKER ENCYCLOPEDIA Body Mass Index 32.37 09/18/2023 3:16 PM RESEARCH WORKER ENCYCLOPEDIA Plan of Treatment Health Maintenance Due Date Last Done Comments Breast Cancer Screening-Mammogram 1955 Colon Cancer Screening-Colonoscopy 1955 Depression Screening 1955 Hepatitis C Screening 1955 Osteoporosis Screening-Bone Density Scan 1955 Well Visit 65+ 2020 Zoster Vaccine (2 of 2) 06/04/2023 04/09/2023 Covid-19 Vaccine (3 - 2023-2 5 season) 2024 04/23/2021, 03/26/2021 Fall Risk Assessment 09/19/2024 09/19/2023 Influenza Vaccine (Season Ended) 2025 09/10/2022, 06/09/2021, 06/28/2020, Additional history exists DTaP/Tdap/Td Vaccine (2 - Td or Tdap) 07/16/2031 07/16/2021 Hepatitis B Screening Completed 03/04/2015 Pneumococcal vaccine 65+ Completed 022, 06/19/2021, 08/30/2017, Additional history exists Insurance [facility] MEDICARE ADVANTAGE [facility] Address: [address] [address] [facility] MDCR HMO REF [facility] MEDIC[facility] Address: [address] [address] [place] [address] [employer]HC MEDICARE ADVANTAGE Advance Directives For more information, please contact: [phone] * Full Code (Latest Code Status on File) Date Activated Date Inactivated Comments 09/18/2023 2:35 PM 09/19/2023 6:39 PM * Full Code Date Activated Date Inactivated Comments 09/18/2023 12:47 PM 09/18/2023 2:35 PM Care Teams Minibus Driver Relationship Specialty Start Date End Date Nikhil Robles MD [address] [place] [address] PCP - General Emergency Medicine 03/12/24
--- OUTSIDE RECORDS SUMMARY | 2025-02-06 10:08 | XMS_ITS | Encounter Summary ---
Author Organization [facility] Address [address] [place] [address] Phone Care Team Providers Care Presser And Shaper Knitted Goods Name Role Phone Marco Woods MD Primary Care Provider Kirsten Niño MD Unavailable Chin Burrows MD Unavailable [phone] Kelsea Root RN Unavailable Unavailable Michelle Mendes APRN, VP CUSTOMER DEVELOPMENT Unavailable [phone] Chantelle Nix APRN, VP CUSTOMER DEVELOPMENT Unavailable Reason for Visit * Reason Comments Medication Refill Encounter Details Date Type Department Care Team (Late st Contact Info) Description 05/08/2023 Refill [facility] - [facility] Medicine - [place] #2 [place] [id number] Marco Woods MD [address] [address] Medication Refill Social History Tobacco Use Types [...] Sex Assigned at Female 11/22/2023 11:58 AM PRODUCTION RECORDER Legal Sex Female 11:34 PM CDT Gender Identity Female 11/22/2023 11:58 AM PRODUCTION RECORDER Sexual Orientation Not on file Occupation Industry [...] CNP - 05/10/2023 10:28 PM CDT [place] MAGAZINE FEEDER reviewed, UDS reviewed. Approved * Telephone Encounter [...] 01/23/23 Office Visit Rebecca Liu APRN, DREW [facility] 12/05/22 Office Visit [facility] 10/25/22 Office Visit Marco Woods MD [facility] [place] 08/29/22 Office Visit Ronald Shaffer APRN, DREW [facility] Showing recent visits within past 365 days and meeting all other requirements Future Appointments Date Type Provider Dept 08/02/23 Appointment Marco Woods MD [facility] [place] 08/07/23 Appointment Marco Woods MD [facility] Showing future appointments within next 90 days and meeting all other requirements documented in this encounter Plan of Treatment Upcoming Encounters Date Type Department Care Team (Late st Contact Info) Description 03/12/2025 8:00 AM CDT Office Visit [facility] Medical [facility] - Family Medicine - [place] #2 [place] [address] Marco Woods MD #2 [facility] [address] [place] [address] 05/11/2025 9:45 AM CDT Office Visit [facility] Medical [facility] - Endocrinology - [place] #2 [place] [address] Kirsten Niño MD #2 [facility] [address] [place] [address] 06/19/2025 10:00 AM CDT Office Visit [facility] Medical [facility] - Pulmonology & Sleep Medicine - [place] #2 [place] [address] Michelle Mendes APRN, RDEW #2 [facility] [address] [place] [address] documented as of this encounter Visit Diagnoses Diagnosis Anxiety Anxiety state, unspecified documented in this encounter Additional Health Concerns Infection Onset Date Last Indicated Resolved Time COVID - 06/01/2023 06/01/2023 06/01/2023 8:16 AM CDT COVID - 11/01/2023 11/01/2023 11/11/2023 12:1 6 AM PRODUCTION RECORDER COVID - 06/25/2024 06/25/2024 06/25/2024 6:36 PM CDT Assessment Noted Time PHQ-9 Depression Total Score: 0 11/22/19 10:00 AM PRODUCTION RECORDER documented as of this encounter Care Teams Presser And Shaper Knitted Goods Relationship Specialty Start Date End Date Marco Woods MD #2 [facility] [address] [place] [address] PCP - General Family Medicine 11/22/17 Kirsten Niño MD #2 [facility] [address] [place] [address] Consulting Physician Endocrinology 07/17/22 Chin Burrows MD #2 [facility] [address] [place] [address] Consulting Physician General Surgery 11/22/22 Kelsea Root RN [place] Pivot End Polisher 06/15/23 08/26/23 Michelle Mendes APRN, VP CUSTOMER DEVELOPMENT #2 [facility] [address] [place] [address] Nurse Practitioner Advanced Practice Nurse 08/14/22 Chantelle Nix APRN, VP CUSTOMER DEVELOPMENT #2 [place] [address] Nurse Practitioner Advanced Practice Nurse 02/19/24 documented as of this encounter
--- OUTSIDE RECORDS SUMMARY | 2025-02-06 10:08 | XMS_ITS | Encounter Summary ---
Author Organization [facility] Address [address] [place] [address] Phone Care Team Providers Care Mail Caller Name Role Phone Marco Woods MD Primary Care Provider [phone] Kirsten Niño MD Unavailable Chin Burrows MD Unavailable Michelle Mendes RENEWALS REPRESENTATIVE, LEAD WEB APPLICATION DEVELOPER Unavailable Chantelle Nix RENEWALS REPRESENTATIVE, LEAD WEB APPLICATION DEVELOPER Unavailable Reason for Visit * Reason Onset Date Comments Itching 02/06/2025 Encounter Details Date Type Department Care Team (Late st Contact Info) Description 02/06/2025 Nurse Triage [facility] Call [facility] [address] [place] [address] Marco Woods MD #2 [facility] [place] [address] Itching Social History Tobacco Use Types Packs/Day Years Used Date Smoking Tobacco: Never Smokeless Tobacco: Never Alcohol Use Standard Drinks/Week Comments Not Currently 0 (1 standard drink = 0.6 oz pur e alcohol) [facility] Utilities Answer Date Recorded In the [...] declined 06/25/2024 How often do you attend hindu or mosque serv ices? Patient declined 06/25/2024 Do you belong to any clubs o r organizations such as hindu groups, unions, fraternal or athletic groups, or [...] Total Score - Questions 1-9 18 10/24 [facility] - Occupational [...] place to sleep or slept in a long-term (including now)? Patient declined 11/28/2023 Housing Stability [...] any time in the past [address] [facility], were you homeless or living in a long-term (including now)? Patient unable to answer 06/25/2024 Education Answer Date Recorded What is the highest level of school you have completed or the highest degree you have received? 12th grade 04/03/2023 Sexually Active Control Partners Comments Not Currently Comments No Sex and Gender Information Value Date Recorded Sex Assigned at Female 11/22/2023 11:58 AM GREENSKEEPER HEAD Legal Sex Female 11:34 PM CDT Gender Identity Female 11/22/2023 11:58 AM GREENSKEEPER HEAD Sexual Orientation Not on file Occupation Industry Job Start Date Job End Date disabled Not on file Not on file Not on file documented as of this encounter Miscellaneous Notes * Telephone Encounter - Magui Preciado RN - 02/06/2025 8:54 AM CDT Called and spoke with patient and she stated that she understood, she will wait and see if it starts to work If not she will make an appointment * Telephone Encounter - Marco Woods MD - 02/06/2025 6:55 AM CDT Please call. You already take the highest dose I can give. Make ov * Telephone Encounter - Sherrie Roblero RN - 02/06/2025 5:04 AM CDT SITUATION: Itching BACKGROUND: Yudi Henderson contacting PCP office. Per chart review, Yudi has 1 recent medication change, which was an increase in levothyroxine. She has no other new medications but reports history of itching that started about [address] Woodstreated with hydroxyzine and it was well-controlled. ASSESSMENT: Symptom Description / Location: There is no redness to the skin, but there is an increase in itching head to toe Was well controlled with hydroxyzine 25 mg 2 tabs twice daily until about 7-10 days ago when it stopped being as effective It is still unknown what is causing the itching No open areas to the skin No medication changes or changes to detergents Also has intermittent runny nose. Does not have itchy eyes. Took Claritin for 2 weeks about 1 monthago and it did not help. Pulmonology recommended Claritin. Pain: Caller denies pain. Fever: Denies fever. Treatment / Response: bath oil, lotion, hydroxyzine with some relief. RECOMMENDATION: Caller understands recommendation, but refuses disposition and is requesting provider increase the hydroxyzine and see if this works. If it does not, Yudi will come for a visit. Please advise and call back. . Care advice provided per triage guideline. Caller verbalized understanding. - See care advice and disposition for Guideline. First positive answer recorded, all responses to prior questions were negative. If symptoms increase, change or if new symptoms develop, call your health care provider or call back. Recommendations were based on caller information and is not a diagnosis. Verified and reviewed all triage information with caller. Reason for Disposition [1] Widespread itching AND [2] cause unknown AND [3] present > 48 hours (Exception: Caller knowsthe cause and can eliminate it.) Protocols used: Itching - [id number] documented in this encounter Plan of Treatment Upcoming Encounters Date Type Department Care Team (Late st Contact Info) Description 03/12/2025 8:00 AM CDT Office Visit [facility] Medical [facility] - Family Medicine - [place] #2 [place] [address] Marco Woods MD #2 [facility] [address] [place] [address] 05/11/2025 9:45 AM CDT Office Visit [facility] - Endocrinology - [place] #2 [place] [address] Kirsten Niño MD #2 [facility] [address] [place] [address] 06/19/2025 10:00 AM CDT Office Visit [facility] Medical [facility] - Pulmonology & Sleep Medicine - [place] #[address] [place] [address] Michelle Mendes APRN, DREW #2 [facility] [address] [place] [address] documented as of this encounter Visit Diagnoses Not on filedocumented in this encounter Additional Health Concerns Assessment Noted Time PHQ-9 Depression Total Score: 18 024 10:00 AM GREENSKEEPER HEAD documented as of this encounter Care Teams Mail Caller Relationship Specialty Start Date End Date Marco Woods MD #2 [facility] [address] [place] [address] PCP - General Family Medicine 11/22/17 Kirsten Niño MD #2 [facility] [address] [place] [address] Consulting Physician Endocrinology 07/17/22 Chin Burrows MD #2 [facility] [address] [place] [address] Consulting Physician General Surgery 11/22/22 Michelle Mendes APRN, LEAD WEB APPLICATION DEVELOPER #2 [facility] [address] [place] [address] Nurse Practitioner Advanced Practice Nurse 08/14/22 Chantelle Nix APRN, LEAD WEB APPLICATION DEVELOPER #2 [place] [address] Nurse Practitioner Advanced Practice Nurse 02/19/24 documented as of this encounter
--- OUTSIDE RECORDS SUMMARY | 2025-02-06 10:08 | XMS_ITS | Encounter Summary ---
Author Organization [facility] Address [address] [place] [address] Phone Care Team Providers Care Higher Education Administrator Name Role Phone Marco Woods MD Primary Care Provider Kirsten Niño MD Unavailable Chin Burrows MD Unavailable Kelsea Root RN Unavailable Unavailable Michelle Mendes APRN, HVAC/R SERVICE TECHNICIAN Unavailable Chantelle Nix APRN, HVAC/R SERVICE TECHNICIAN Unavailable Reason for Visit * Reason Onset Date Comments Medication Management 11/26/2022 Would like pain medication Encounter Details Date Type Department Care Team (Late st Contact Info) Description 11/26/2022 [facility] [address] [place] [address] Marco Woods MD #2 [facility] [place] [address] Medication Management (Would like pain medication) Social History Tobacco Use Types Packs/Day Years Used Date Smoking Tobacco: Never Smokeless Tobacco: Never Alcohol Use Standard Drinks/Week Comments Not Currently 0 (1 standard drink = 0.6 oz pur e alcohol) Sexually Active Control Partners Comments Not Currently Comments No Sex and Gender Information Value Date Recorded Sex Assigned at Female 11/22/2023 11:58 AM LIVESTOCK AUCTIONEER Legal Sex Female 11:34 PM CDT Gender Identity Female 11/22/2023 11:58 AM LIVESTOCK AUCTIONEER Sexual Orientation Not on file Occupation Industry Job Start Date Job End Date disabled Not on file Not on file Not on file COVID-19 Exposure Response Date Recorded In the last 10 days, have ambar u been in contact with someone who was confirmed or suspected to have Coronavirus/COVID-19? No / Unsure 11/29/2022 3:20 PM LIVESTOCK AUCTIONEER documented as of this encounter Miscellaneous Notes [...] before nurse could obtain any further information. STOCK AUCTIONEER documented in this encounter Plan of Treatment Upcoming Encounters Date Type Department Care Team (Late st Contact Info) Description 03/12/2025 8:00 AM CDT Office Visit [facility] - Family Medicine [facility] #2 [place] [address] Marco Woods MD #2 [facility] [address] [place] [address] 05/11/2025 9:45 AM CDT Office Visit [facility] Medical [facility] - Endocrinology - [place] #2 [place] [address] Kirsten Niño MD #2 [facility] [address] [place] [address] 06/19/2025 10:00 AM CDT Office Visit [facility] Medical [facility] - Pulmonology & Sleep Medicine - [place] #2 [place] [address] Michelle Mendes APRN, HVAC/R SERVICE TECHNICIAN #2 [facility] [address] [place] [address] documented as of this encounter Visit Diagnoses Not on filedocumented in this encounter Additional Health Concerns Infection Onset Date Last Indicated Resolved Time COVID - 19 12/31/2022 12/31/2022 01/10/2023 12:1 8 AM CDT COVID - 19 Confirmed 12/31/2022 12/31/2022 023 12:17 AM CDT COVID - 19 06/01/2023 06/01/2023 06/01/2023 8:16 AM CDT COVID - 19 11/01/2023 11/01/2023 11/11/2023 12:1 6 AM LIVESTOCK AUCTIONEER COVID - 19 06/25/2024 06/25/2024 06/25/2024 6:36 PM CDT Assessment Noted Time PHQ-9 Depression Total Score: 0 11/22/19 18 10:00 AM LIVESTOCK AUCTIONEER documented as of this encounter Care Teams Higher Education Administrator Relationship Specialty Start Date End Date Marco Woods MD #2 [facility] [address] [place] [address] PCP - General Family Medicine 11/22/17 Kirsten Niño MD #[address] [phone] Consulting Physician Endocrinology 07/17/22 Chin Burrows MD #[address] [phone] Consulting Physician General Surgery 11/22/22 Kelsea Root RN [place] Master Merchandiser 06/15/23 08/26/23 Michelle Mendes APRN, HVAC/R SERVICE TECHNICIAN #[address] [facility] [address] [address] Nurse Practitioner Advanced Practice Nurse 08/14/22 Chantelle Nix APRN, HVAC/R SERVICE TECHNICIAN [address] [place] [address] Nurse Practitioner Advanced Practice Nurse 02/19/24 documented as of this encounter
--- OUTSIDE RECORDS SUMMARY | 2025-02-06 10:08 | XMS_ITS | Encounter Summary ---
Author Organization [facility] Address [address] [place] [address] Phone Care Team Providers Care Senior Portfolio Manager Name Role Phone Marco Woods MD Primary Care Provider [phone] Kirsten Niño MD Unavailable Chin Burrows MD Unavailable Kelsea Root RN Unavailable Unavailable Michelle Mendes APRN, TICKET DISPATCHER Unavailable Chantelle Nix APRN, TICKET DISPATCHER Unavailable Reason for Visit * Reason Comments Medication Refill Encounter Details Date Type Department Care Team (Late st Contact Info) Description 04/25/2021 Refill [facility] Call [facility] [address] [place] [address] Mirtha Steiner APRN, TICKET DISPATCHER #2 [facility] [place] [address] Medication Refill Social History Tobacco Use Types Packs/Day Years Used Date Smoking Tobacco: Never Smokeless Tobacco: Former Alcohol Use Standard Drinks/Week Comments Not Currently 0 (1 standard drink = 0.6 oz pur e alcohol) Sexually Active Control Partners Comments Not Currently Comments No Sex and Gender Information Value Date Recorded Sex Assigned at Female 11/22/2023 11:58 AM DIESEL MOTOR MECHANIC Legal Sex Female 11:34 PM CDT Gender Identity Female 11/22/2023 11:58 AM DIESEL MOTOR MECHANIC Sexual Orientation Not on file Occupation Industry [...] - Family Medicine - Mirtha Haq APN, TICKET DISPATCHER 5 months ago Asthma, unspecified asthma severity, unspecified whether complicated, unspecified whether persistent [facility] - Family Medicine - Marco Menchaca MD Upcoming Appointments Future Appointments In 2 months Marco Woods MD [facility] Family Medicine [facility], [facility] In 2 months Kirsten Niño MD [facility] Endocrinology [facility] In 3 months Michelle Mendes APN, TICKET DISPATCHER [facility] - Pulmonology & Sleep Medicine [facility] FACULTY MEMBER - Recent and Past Visits Recent Visits Date Type Provider Dept 03/25/21 [facility] 02/22[facility]21 Office Visit [facility] 02/07/21 Office Visit Marco Woods MD [facility] 12/21/20 Telemedicine Mirtha Steiner APN, TICKET DISPATCHER [facility] 11/09/20 Office Visit Marco Woods MD [facility] 09/06/20 Office Visit Marco Woods MD [facility] 06/09/20 Office Visit Marco Woods MD [facility] 04/27/20 Office Visit Marco Woods MD [facility] Showing recent visits within past 460 days with a meds authorizing provider and meeting all other requirements Future Appointments Date Type Provider Dept 06/28/21 Appointment Marco [facility] MD [facility] Showing future appointments within next 90 days with a meds authorizing provider and meeting all other requirements documented in this encounter Plan of Treatment Upcoming Encounters Date Type Department Care Team (Late st Contact Info) Description 03/12/2025 8:00 AM CDT Office Visit [facility] Family Medicine [facility] #2 [place] [address] Marco Woods MD #[address] [address] 05/11/2025 9:45 AM CDT Office Visit [facility] Endocrinology - [place] #2 [place] [address] Kirsten Niño MD [address] [place] [address] 06/19/2025 10:00 AM CDT Office Visit [facility] - Pulmonology & Sleep Medicine [facility] #2 [place] [address] Michelle Mendes APRN, TICKET DISPATCHER #2 [facility] [address] [place] [address] documented as of this encounter Visit Diagnoses Not on filedocumented in this encounter Additional Health Concerns Infection Onset Date Last Indicated Resolved Time COVID - 19 06/29/2022 06/29/2022 07/09/2022 12:1 6 AM CDT COVID - 19 11/20/2022 11/20/2022 11/24/2022 8:51 AM DIESEL MOTOR MECHANIC COVID - 19 12/31/2022 12/31/2022 01/10/2023 12:1 8 AM CDT COVID - 19 Confirmed 12/31/2022 12/31/2022 023 12:17 AM CDT COVID - 19 06/01/2023 06/01/2023 06/01/2023 8:16 AM CDT COVID - 19 11/01/2023 11/01/2023 11/11/2023 12:1 6 AM DIESEL MOTOR MECHANIC COVID - 19 06/25/2024 06/25/2024 06/25/2024 6:36 PM CDT Assessment Noted Time PHQ-9 Depression Total Score: 0 11/22/19 10:00 AM DIESEL MOTOR MECHANIC documented as of this encounter Care Teams Senior Portfolio Manager Relationship Specialty Start Date End Date Marco Woods MD #2 [facility] [address] [place] [address] PCP - General Family Medicine 11/22/17 Kirsten Niño MD #2 [facility] [address] [place] [address] Consulting Physician Endocrinology 07/17/22 Chin Burrows MD #2 [facility] [address] [place] [address] Consulting Physician General Surgery 11/22/22 Kelsea Root RN [place] Fingerprint Classifier 06/15/23 08/26/23 Michelle Mendes APRN, TICKET DISPATCHER #[address] [address] Nurse Practitioner Advanced Practice Nurse 08/14/22 Chantelle Nix APRN, TICKET DISPATCHER #2 [place] [address] Nurse Practitioner Advanced Practice Nurse 02/19/24 documented as of this encounter
--- OUTSIDE RECORDS SUMMARY | 2025-02-06 10:08 | XMS_ITS | Encounter Summary ---
Author Organization [facility] Address [address] [place] [address] Phone Care Team Providers Care Cigarette Inspector Name Role Phone Marco Woods MD Primary Care Provider [phone] Kirsten Niño MD Unavailable Chin Burrows MD Unavailable Kelsea Root RN Unavailable Unavailable Michelle Mendes APRN, RODDING MACHINE TENDER Unavailable Chantelle Nix APRN, RODDING MACHINE TENDER Unavailable Reason for Visit * Reason Comments Medication Refill Encounter Details Date Type Department Care Team (Late st Contact Info) Description 09/22/2022 Refill [facility] - Family Medicine [facility] #[address] [place] [phone] Marco Woods MD [address] [address] Medication Refill Social History Tobacco Use Types Packs/Day Years Used Date Smoking Tobacco: Never Smokeless Tobacco: Former Alcohol Use Standard Drinks/Week Comments Not Currently 0 (1 standard drink = 0.6 oz pur e alcohol) Sexually Active Control Partners Comments Not Currently Comments No Sex and Gender Information Value Date Recorded Sex Assigned at Female 11/22/2023 11:58 AM CUPOLA TAPPER HELPER Legal Sex Female 11:34 PM CDT Gender Identity Female 11/22/2023 11:58 AM CUPOLA TAPPER HELPER Sexual Orientation Not on file Occupation Industry Job Start Date Job End Date disabled Not on file Not on file Not on file COVID-19 Exposure Response Date Recorded In the last 10 days, have ambar u been in contact with someone who was confirmed or suspected to have Coronavirus/COVID-19? No / Unsure 09/16/2022 6:11 AM CUPOLA TAPPER HELPER documented as of this encounter Miscellaneous Notes [...] Dept 08/29/22 Office Visit Ronald Shaffer APRN, RODDING MACHINE TENDER [facility] 07/12/22 Office Visit Jany Hernandez, [facility] 06/23/22 Office Visit Marco Woods MD [facility] 05/19/22 Office Visit Marco Woods MD [facility] 01/10/22 Office Visit Marco Woods MD [facility] 10/04/21 Office Visit Marco [facility] MD [facility] Showing recent visits within past 365 [...] Dept 08/29/22 Office Visit Ronald Shaffer APRN, RODDING MACHINE TENDER [facility] 07/12/22 Office Visit Jany Hernandez PAC [facility] 06/23/22 Office Visit Marco [facility] MD [facility] 05/19/22 Office Visit Marco Woods MD [facility] 01/10/22 Office Visit Marco Woods MD [facility] Showing recent visits within past 270 days and meeting all other requirements Future Appointments Date Type Provider Dept 10/25/22 Appointment Marco [facility] MD [facility] Showing future appointments within next 90 days and meeting all other requirements Passed - Blood pressure on record in past 12 months Clinician-entered: BP Readings from Last 3 Encounters: 09/12/22 140/84 08/29/22 134/70 08/28/22 118/78 Patient-entered: No data recorded [place] TAPPER HELPER documented in this encounter Plan of Treatment Upcoming Encounters Date Type Department Care Team (Late st Contact Info) Description 03/12/2025 8:00 AM CDT Office Visit [facility] Medical [facility] - Family Medicine - [place] #2 [place] [address] Marco Woods MD #2 [facility] [address] [place] [address] 05/11/2025 9:45 AM CDT Office Visit [facility] Medical [facility] - Endocrinology - [place] #2 [facility] [place] [address] Kirsten Niño MD #2 [facility] [address] [place] [address] 06/19/2025 10:00 AM CDT Office Visit [facility] Medical [facility] - Pulmonology & Sleep Medicine - [place] #2 [facility] [place] [address] Michelle Mendes APRN, DREW #2 [facility] [address] [place] [address] documented as of this encounter Visit Diagnoses Diagnosis Organic periodic limb movement sleep disorder documented in this encounter Additional Health Concerns Infection Onset Date Last Indicated Resolved Time COVID - 19 11/20/2022 11/20/2022 11/24/2022 8:51 AM CUPOLA TAPPER HELPER COVID - 19 12/31/2022 12/31/2022 01/10/2023 12:1 8 AM CDT COVID - 19 Confirmed 12/31/2022 12/31/2022 023 12:17 AM CDT COVID - 19 06/01/2023 06/01/2023 06/01/2023 8:16 AM CDT COVID - 19 11/01/2023 11/01/2023 11/11/2023 12:1 6 AM CUPOLA TAPPER HELPER COVID - 19 06/25/2024 06/25/2024 06/25/2024 6:36 PM CDT Assessment Noted Time PHQ-9 Depression Total Score: 0 11/22/19 10:00 AM CUPOLA TAPPER HELPER documented as of this encounter Care Teams Cigarette Inspector Relationship Specialty Start Date End Date Marco Woods MD #2 [facility] [address] [place] [address] PCP - General Family Medicine 11/22/17 Kirsten Niño MD #2 [facility] [address] [place] [address] Consulting Physician Endocrinology 07/17/22 Chin Burrows MD #2 [facility] [address] [place] [address] Consulting Physician General Surgery 11/22/22 Kelsea Root RN [place] Alarm Installation Technician 06/15/23 08/26/23 Michelle Mendes APRN, RODDING MACHINE TENDER #2 [facility] [address] [place] [address] Nurse Practitioner Advanced Practice Nurse 08/14/22 Chantelle Nix APRN, RODDING MACHINE TENDER #2 [place] [address] Nurse Practitioner Advanced Practice Nurse 02/19/24 documented as of this encounter
--- OUTSIDE RECORDS SUMMARY | 2025-02-06 10:08 | XMS_ITS | Encounter Summary ---
Author Organization [facility] Address [address] [place] [address] Phone Care Team Providers Care Creative Lead Name Role Phone Marco Woods MD Primary Care Provider Kirsten Niño MD Unavailable Chin Burrows MD Unavailable Kelsea Root RN Unavailable Unavailable Michelle Mendes APRN, WIRE STRAIGHTENER Unavailable Chantelle Nix APRN, WIRE STRAIGHTENER Unavailable Reason for Visit * Reason Comments Medication Refill Encounter Details Date Type Department Care Team (Late st Contact Info) Description 12/16/2022 Refill [facility] [address] [place] [address] Marco Woods MD #2 [facility] [address] [place] [address] Medication Refill Social History Tobacco Use Types Packs/Day Years Used Date Smoking Tobacco: Never Smokeless Tobacco: Never Alcohol Use Standard Drinks/Week Comments Not Currently 0 (1 standard drink = 0.6 oz pur e alcohol) Sexually Active Control Partners Comments Not Currently Comments No Sex and Gender Information Value Date Recorded Sex Assigned at Female 11/22/2023 11:58 AM ELECTRICAL TECH Legal Sex Female 11:34 PM CDT Gender Identity Female 11/22/2023 11:58 AM ELECTRICAL TECH Sexual Orientation Not on file Occupation Industry Job Start Date Job End Date disabled Not on file Not on file Not on file COVID-19 Exposure Response Date Recorded In the last 10 days, have yo u been in contact with someone who was confirmed or suspected to have Coronavirus/COVID-19? No / Unsure 12/18/2022 9:05 AM ELECTRICAL TECH documented as of this encounter Miscellaneous Notes * Telephone Encounter - Brooklyn Preciado, RN - 12/19/2022 9:23 AM CST Duplicate request. TRICAL TECH * Telephone Encounter - Celia Valles RN - 12/18/2022 2:00 PM ELECTRICAL TECH duplicate TRICAL TECH documented in this encounter Plan of Treatment Upcoming Encounters Date Type Department Care Team (Late st Contact Info) Description 03/12/2025 8:00 AM CDT [facility] - Family Medicine - [place] #2 [place] [address] Marco Woods MD #2 [facility] [address] [place] [address] 05/11/2025 9:45 AM CDT [facility] Visit [facility] - Endocrinology - [place] #2 [place] [address] Kirsten Niño MD #2 [facility] [address] [place] [address] 06/19/2025 10:00 AM CDT Office Visit [facility] - Pulmonology & Sleep Medicine - [place] #2 [place] [address] Michelle Mendes APRN, WIRE STRAIGHTENER #2 [facility] [address] [place] [address] documented as of this encounter Visit Diagnoses Diagnosis Dyspnea, unspecified type documented in this encounter Additional Health Concerns Infection Onset Date Last Indicated Resolved Time COVID - 19 12/31/2022 12/31/2022 01/10/2023 12:1 8 AM CDT COVID - 19 Confirmed 12/31/2022 12/31/2022 023 12:17 AM CDT COVID - 19 06/01/2023 06/01/2023 06/01/2023 8:16 AM CDT COVID - 19 11/01/2023 11/01/2023 11/11/2023 12:1 6 AM ELECTRICAL TECH COVID - 19 06/25/2024 06/25/2024 06/25/2024 6:36 PM CDT Assessment Noted Time PHQ-9 Depression Total Score: 0 11/22/19 10:00 AM ELECTRICAL TECH documented as of this encounter Care Teams Creative Lead Relationship Specialty Start Date End Date Marco Woods MD #2 [facility] [address] [place] [address] PCP - General Family Medicine 11/22/17 Kirsten Niño MD #2 [facility] [address] [place] [address] Consulting Physician Endocrinology 07/17/22 Chin Burrows MD #2 [facility] [address] [place] [address] Consulting Physician General Surgery 11/22/22 Kelsea Root, JUWAN [place] Form Builder 06/15/23 08/26/23 Michelle Mendes APRN, WIRE STRAIGHTENER #2 [facility] [address] [place] [address] Nurse Practitioner Advanced Practice Nurse 08/14/22 Chantelle Nix APRN, WIRE STRAIGHTENER #2 [place] [address] Nurse Practitioner Advanced Practice Nurse 02/19/24 documented as of this encounter
--- OUTSIDE RECORDS SUMMARY | 2025-02-06 10:08 | XMS_ITS | Encounter Summary ---
Author Organization [facility] Address [address] [place] [address] Phone Care Team Providers Care Grazing Aide Name Role Phone Marco Woods MD Primary Care Provider Kirsten Niño MD Unavailable Chin Burrows MD Unavailable Kelsea Root RN Unavailable Unavailable Michelle Mendes APRN, CHILD AND ADOLESCENT PSYCHOLOGIST Unavailable [phone] Chantelle Nix APRN, CHILD AND ADOLESCENT PSYCHOLOGIST Unavailable Reason for Visit * Reason Comments Medication Refill Encounter Details Date Type Department Care Team (Late st Contact Info) Description 03/30/2023 Refill [facility] Medical Group - Family Medicine - [place] #2 [place] [address] Mirtha Steiner APRN, CHILD AND ADOLESCENT PSYCHOLOGIST #[address] [address] Medication Refill Social History Tobacco Use Types Packs/Day Years Used Date Smoking Tobacco: Never Smokeless Tobacco: Never Alcohol Use Standard Drinks/Week Comments Not Currently 0 (1 standard drink = 0.6 oz pur e alcohol) Sexually Active Control Partners Comments Not Currently Comments No Sex and Gender Information Value Date Recorded Sex Assigned at Female 11/22/2023 11:58 AM PHP ARCHITECT Legal Sex Female 11:34 PM CDT Gender Identity Female 11/22/2023 11:58 AM PHP ARCHITECT Sexual Orientation Not on file Occupation Industry [...] MD [facility] 03/05/23 Office [facility]/07/23 Office Visit Marco Woods MD [facility] 01/23/23 Office Visit Rebecca Liu APRN, [facility] 12/05/22 Office Visit Marco Woods MD [facility] 10/25/22 Office Visit Marco Woods MD [facility] Showing recent visits within past 182 days and meeting all other requirements Future Appointments Date Type Provider Dept 04/03/23 Appointment Marco Woods MD [facility] 04/26/23 Appointment Marco Woods MD [facility] Showing future appointments within next 90 [...] 8:00 AM CDT Office Visit [facility] - Family Medicine - [place] #2 [place] [address] Marco Woods MD #2 [facility] [address] [place] [address] 05/11/2025 9:45 AM CDT Office Visit [facility] Endocrinology - [place] #2 [place] [address] Kirsten Niño MD #2 [facility] [address] [place] [address] 06/19/2025 10:00 AM CDT Office Visit [facility] Medical [facility] - Pulmonology & Sleep Medicine - [place] #2 [place] [address] Michelle Mendes APRN, CHILD AND ADOLESCENT PSYCHOLOGIST #2 [facility] [address] [place] [address] documented as of this encounter Visit Diagnoses Diagnosis Bipolar 1 disorder (HCC) Bipolar I disorder, most recent episode (or current) unspecified Anxiety Anxiety state, unspecified documented in this encounter Additional Health Concerns Infection Onset Date Last Indicated Resolved Time COVID - 19 06/01/2023 06/01/2023 06/01/2023 8:16 AM CDT COVID - 19 11/01/2023 11/01/2023 11/11/2023 12:1 6 AM PHP ARCHITECT COVID - 19 06/25/2024 06/25/2024 06/25/2024 6:36 PM CDT Assessment Noted Time PHQ-9 Depression Total Score: 0 11/22/19 10:00 AM PHP ARCHITECT documented as of this encounter Care Teams Grazing Aide Relationship Specialty Start Date End Date Marco Woods MD #2 [facility] [address] [place] [address] PCP - General Family Medicine 11/22/17 Kirsten Niño MD #2 [facility] [address] [place] [phone] Consulting Physician Endocrinology 07/17/22 Chin Burrows MD #2 [facility] [address] [place] [phone] Consulting Physician General Surgery 11/22/22 Kelsea Root RN [place] Turn Laster 06/15/23 08/26/23 Michelle Mendes APRN, CHILD AND ADOLESCENT PSYCHOLOGIST #2 [facility] [address] [place] [address] Nurse Practitioner Advanced Practice Nurse 08/14/22 Chantelle Nix APRN, CHILD AND ADOLESCENT PSYCHOLOGIST #2 [place] [address] Nurse Practitioner Advanced Practice Nurse 02/19/24 documented as of this encounter
--- OUTSIDE RECORDS SUMMARY | 2025-02-06 10:08 | XMS_ITS | Encounter Summary ---
Author Organization [facility] Address [address] [place] [address] Phone Care Team Providers Care Orthopedic Mechanic Name Role Phone Marco Woods MD Primary Care Provider [phone] Kirsten Niño MD Unavailable Chin Burrows MD Unavailable Michelle Mendes APRN, PROGRESSIVE ASSEMBLER AND FITTER Unavailable Chantelle Nix INSTRUMENT MAN, PROGRESSIVE ASSEMBLER AND FITTER Unavailable Reason for Visit * Reason Comments Medication Refill Encounter Details Date Type Department Care Team (Late st Contact Info) Description 01/03/2024 Refill [facility] Medical Group - Family Medicine - [place] [address] [place] [phone] Marco Woods MD [id number] [address] Medication Refill Social History Tobacco Use Types Packs/Day Years Used Date Smoking Tobacco: Never Smokeless Tobacco: Never Alcohol Use Standard Drinks/Week Comments Not Currently 0 (1 standard drink = 0.6 oz pur e alcohol) [facility] Utilities Answer Date Recorded In the past [...] declined 11/28/2023 How often do you attend caodaism or congregational serv ices? Patient declined 11/28/2023 Do you belong to any clubs o r organizations such as caodaism groups, unions, fraternal or athletic groups, or [...] Total Score - Questions 1-9 18 10/24 [facility] - [...] Sex Assigned at Female 11/22/2023 11:58 AM LUMBER SORTER MACHINE Legal Sex Female 11:34 PM CDT Gender Identity Female 11/22/2023 11:58 AM LUMBER SORTER MACHINE Sexual Orientation Not on file Occupation Industry [...] Dept 12/05/23 Office Visit Marco Woods MD [facility] [place] 11/20/23 Office Visit Ronald Shaffer APRN, PROGRESSIVE ASSEMBLER AND FITTER [facility] 10/10/23 Office Visit Rebecca Liu APRN, PROGRESSIVE ASSEMBLER AND FITTER [facility] [place] 08/24/23 Office Visit Ranjit Linder MD [facility] 08/02/23 Office Visit Marco Woods MD [facility] 05/01/23 Office Visit Marco Woods MD [facility] 04/18/23 Office Visit Marco Woods MD [facility] 04/03/23 Office Visit Marco Woods MD [facility] 03/12/23 Office Visit Marco Woods MD [facility] 03/05/23 Office Visit Mirtha Steiner APRN, PROGRESSIVE ASSEMBLER AND FITTER [facility] [place] Showing recent visits within past 365 [...] Description 03/12/2025 8:00 AM CDT Office Visit [facility] - Family Medicine - [place] [address] [facility] [place] [address] Marco Woods MD #2 [facility] [address] [place] [address] 05/11/2025 9:45 AM CDT Office Visit [facility] - Endocrinology - [place] #2 [place] [address] Kirsten Niño MD #2 [facility] [address] [place] [address] 06/19/2025 10:00 AM CDT Office Visit [facility] - Pulmonology & Sleep Medicine [facility] #2 [place] [address] Michelle Mendes APRN, PROGRESSIVE ASSEMBLER AND FITTER #2 [facility] [address] [place] [address] documented as of this encounter Visit Diagnoses Not on filedocumented in this encounter Additional Health Concerns Infection Onset Date Last Indicated Resolved Time COVID - 19 06/25/2024 06/25/2024 06/25/2024 6:36 PM CDT Assessment Noted Time PHQ-9 Depression Total Score: 18 024 10:00 AM LUMBER SORTER MACHINE documented as of this encounter Care Teams Orthopedic Mechanic Relationship Specialty Start Date End Date Marco Woods MD #2 [facility] [address] [place] [address] PCP - General Family Medicine 11/22/17 Kirsten Niño MD #2 [facility] [address] [place] [address] Consulting Physician Endocrinology 07/17/22 Chin Burrows MD #2 [facility] [address] [place] [phone] Consulting Physician General Surgery 11/22/22 Michelle Mendes APRN, PROGRESSIVE ASSEMBLER AND FITTER [facility] [facility] [address] Nurse Practitioner Advanced Practice Nurse 08/14/22 Chantelle Nix APRN, PROGRESSIVE ASSEMBLER AND FITTER #2 [place] [address] Nurse Practitioner Advanced Practice Nurse 02/19/24 documented as of this encounter
--- OUTSIDE RECORDS SUMMARY | 2025-02-06 10:08 | XMS_ITS | Encounter Summary ---
Author Organization [facility] Address [address] [place] [address] Phone Care Team Providers Care Surgeon Assistant Name Role Phone Marco Woods MD Primary Care Provider [phone] Kirsten Niño MD Unavailable Chin Burrwos MD Unavailable Michelle Mendes APRN, FINANCIAL ACCOUNTING MANAGER Unavailable Chantelle Nix LEGAL OFFICER, FINANCIAL ACCOUNTING MANAGER Unavailable Reason for Visit * Reason Comments Medication Refill Encounter Details Date Type Department Care Team (Late st Contact Info) Description 01/22/2024 Refill [facility] - Family Medicine - [place] [address] [place] [phone] Marco Woods MD [id number] [address] Medication Refill Social History Tobacco Use Types Packs/Day Years Used Date Smoking Tobacco: Never Smokeless Tobacco: Never Alcohol Use Standard Drinks/Week Comments Not Currently 0 (1 standard drink = 0.6 oz pur e alcohol) [facility] Utilities Answer Date Recorded In [...] declined 11/28/2023 How often do you attend muslim or restorationist serv ices? Patient declined 11/28/2023 Do you belong to any clubs o r organizations such as muslim groups, unions, fraternal or athletic groups, or [...] Total Score - Questions 1-9 18 10/24 [facility] - Occupational Stress [...] place to sleep or slept in a fdc (including now)? Patient declined 11/28/2023 Education Answer Date Recorded What is the highest level of school you have completed or the highest degree you have received? 12th grade 04/03/2023 Sexually Active Control Partners Comments Not Currently Comments No Sex and Gender Information Value Date Recorded Sex Assigned at Female 11/22/2023 11:58 AM HOST/HOSTESS HEAD Legal Sex Female 11:34 PM CDT Gender Identity Female 11/22/2023 11:58 AM HOST/HOSTESS HEAD Sexual Orientation Not on file Occupation [...] MG Tablet Controlled Release [Pharmacy Med Name: [facility] 300MG TBCR] 56 Tablet 5 Sig: TAKE 1 TABLET BY MOUTH TWICE A DAY Not Delegated - Antimanic Agents Protocol Failed - 01/22/2024 9:25 AM Failed - This refill cannot be delegated Passed - Visit with relevant provider in past 12 months or upcoming 90 days Recent Visits Date Type Provider Dept 12/05/23 Office Visit Marco Woods MD [facility] [place] 11/20/23 Office Visit Ronald Shaffer APRN, FINANCIAL ACCOUNTING MANAGER [facility] 10/10/23 Office Visit Rebecca Liu APRN, FINANCIAL ACCOUNTING MANAGER [facility] [place] 08/24/23 [facility]/23 Office Visit Marco Woods MD [facility] 05/01/23 Office [facility] 04/18/23 Office Visit Marco Woods MD [facility] 04/03/23 Office Visit Marco Woods MD [facility] 03/12/23 Office Visit Marco Woods MD [facility] 03/05/23 Office Visit Mirtha Steiner APRN, [facility] Showing recent visits within past 365 days and meeting all other requirements Future Appointments Date Type Provider Dept 03/12/24 Appointment [facility] MD [facility] Showing future appointments within next 90 days and meeting all other requirements documented in this encounter Plan of Treatment Upcoming Encounters Date Type Department Care Team (Late st Contact Info) Description 03/12/2025 8:00 AM CDT Office Visit [facility] - Family Medicine - [place] #2 [place] [address] Marco Woods MD #[address] [address] 05/11/2025 9:45 AM CDT Office Visit [facility] - Endocrinology - [place] #2 [place] [address] Kirsten Niño MD #[address] [address] 06/19/2025 10:00 AM CDT Office Visit [facility] - Pulmonology & Sleep Medicine - [place] #2 [place] [address] Michelle Mendes APRN, FINANCIAL ACCOUNTING MANAGER [facility] [address] [place] [address] documented as of this encounter Visit Diagnoses Not on filedocumented in this encounter Additional Health Concerns Infection Onset Date Last Indicated Resolved Time COVID - 19 06/25/2024 06/25/2024 06/25/2024 6:36 PM CDT Assessment Noted Time PHQ-9 Depression Total Score: 18 024 10:00 AM HOST/HOSTESS HEAD documented as of this encounter Care Teams Surgeon Assistant Relationship Specialty Start Date End Date Marco Woods MD #[address] [facility] [address] [place] [address] PCP - General Family Medicine 11/22/17 Kirsten Niño MD #[address] [facility] [address] [place] [address] Consulting Physician Endocrinology 07/17/22 Chin Burrows MD #[address] [facility] [address] [place] [address] Consulting Physician General Surgery 11/22/22 Michelle Mendes APRN, FINANCIAL ACCOUNTING MANAGER #[address] [facility] [address] [place] [address] Nurse Practitioner Advanced Practice Nurse 08/14/22 Chantelle Nix APRN, FINANCIAL ACCOUNTING MANAGER #2 [place] [address] Nurse Practitioner Advanced Practice Nurse 02/19/24 documented as of this encounter
--- OUTSIDE RECORDS SUMMARY | 2025-02-06 10:08 | XMS_ITS | Encounter Summary ---
Author Organization [facility] Address [address] [place] [address] Phone Care Team Providers Care Regional Marketing Manager Name Role Phone Marco Woods MD Primary Care Provider [phone] Kirsten Niño MD Unavailable Chin Burrows MD Unavailable [phone] Michelle Mendes APRN, SKIVER MACHINE Unavailable [phone] Chantelle Nix OPERATIONS PROCESSOR, SKIVER MACHINE Unavailable Reason for Visit * Reason Comments Medication Refill Encounter Details Date Type Department Care Team (Late st Contact Info) Description 03/11/[address] [facility] Medical Group - Family Medicine - [place] [address] [place] [phone] Marco Woods MD [id number] [address] Medication Refill Social History Tobacco Use Types Packs/Day Years Used Date Smoking Tobacco: Never Smokeless Tobacco: Never Alcohol Use Standard Drinks/Week Comments Not Currently 0 (1 standard drink = 0.6 oz pur e alcohol) [facility] Utilities Answer Date Recorded In the [...] declined 11/28/2023 How often do you attend jew or anabaptism serv ices? Patient declined 11/28/2023 Do you belong to any clubs o r organizations such as jew groups, unions, fraternal or athletic groups, or [...] Score - Questions 1-9 18 10/24 [facility] of Occupat ional Health - Occupational [...] to sleep or slept in a senior care (including now)? Patient declined 11/28/2023 Education Answer Date Recorded What is the highest level of school you have completed or the highest degree you have received? 12th grade 04/03/2023 Sexually Active Control Partners Comments Not Currently Comments No Sex and Gender Information Value Date Recorded Sex Assigned at Female 11/22/2023 11:58 AM DENTAL SCHEDULER Legal Sex Female 11:34 PM CDT Gender Identity Female 11/22/2023 11:58 AM DENTAL SCHEDULER Sexual Orientation Not on file Occupation Industry [...] Dept 02/21/24 Office Visit Amor Pitt MD [facility] [place] 02/12/24 Office Visit Rebecca Liu, OPERATIONS PROCESSOR, SKIVER MACHINE [facility] [place] 12/05/23 Office Visit Marco Woods MD [facility] 11/20/23 Office Visit Ronald Shaffer, OPERATIONS PROCESSOR, SKIVER MACHINE [facility] 10/10/23 Office Visit Rebecca Liu, OPERATIONS PROCESSOR, SKIVER MACHINE [facility] [place] 08/24/23 Office Visit Ranjit Linder MD [facility] [place] 08/02/23 Office Visit Marco Woods MD [facility] [place] 05/01/23 Office Visit Marco Woods MD [facility] 04/18/23 Office Visit Marco Woods MD [facility] 04/03/23 Office [facility] Show[facility] recent visits within past 365 days and meeting all other requirements Future Appointments Date Type Provider Dept 03/12/24 Appointment [facility] MD [facility] Showing future appointments within next 90 days and meeting all other requirements documented in this encounter Plan of Treatment Upcoming Encounters Date Type Department Care Team (Late st Contact Info) Description 03/12/2025 8:00 AM CDT Office Visit [facility] - Family Medicine - [place] #2 [place] [address] Marco Woods MD #[address] [address] 05/11/2025 9:45 AM CDT Office Visit [facility] - Endocrinology - [place] #2 [place] [address] Kirsten Niño MD #[address] [address] 06/19/2025 10:00 AM CDT Office Visit [facility] - Pulmonology & Sleep Medicine [facility] #2 [place] [address] Michelle Mendes APRN, DREW #2 [facility] [address] [place] [address] documented as of this encounter Visit Diagnoses Not on filedocumented in this encounter Additional Health Concerns Infection Onset Date Last Indicated Resolved Time COVID - 19 06/25/2024 06/25/2024 06/25/2024 6:36 PM CDT Assessment Noted Time PHQ-9 Depression Total Score: 18 024 10:00 AM DENTAL SCHEDULER documented as of this encounter Care Teams Regional Marketing Manager Relationship Specialty Start Date End Date Marco Woods MD #2 [facility] [address] [place] [address] PCP - General Family Medicine 11/22/17 Kirsten Niño MD #[address] [address] Consulting Physician Endocrinology 07/17/22 Chin Burrows MD #[address] [address] Consulting Physician General Surgery 11/22/22 Michelle Mendes APRN, DREW #2 [facility] [address] [place] [address] Nurse Practitioner Advanced Practice Nurse 08/14/22 Chantelle Nix APRN, DREW #2 [place] [address] Nurse Practitioner Advanced Practice Nurse 02/19/24 documented as of this encounter
--- OUTSIDE RECORDS SUMMARY | 2025-02-06 10:08 | XMS_ITS | Encounter Summary ---
Author Organization [facility] Address [address] [place] [address] Phone Care Team Providers Care Medical Advisor Name Role Phone Marco Woods MD Primary Care Provider [phone] Kirsten Niño MD Unavailable Chin Burrows MD Unavailable Kelsea Root RN Unavailable Unavailable Michelle Mendes APRN, HEATING WORKER Unavailable Chantelle Nix APRN, HEATING WORKER Unavailable Reason for Visit * Reason Comments Medication Refill Encounter Details Date Type Department Care Team (Late st Contact Info) Description 01/22/2023 Refill [facility] - [facility]ology - [place] [address] [place] [address] Kirsten Niño MD #[address] [address] Medication Refill Social History Tobacco Use Types Packs/Day Years Used Date Smoking Tobacco: Never Smokeless Tobacco: Never Alcohol Use Standard Drinks/Week Comments Not Currently 0 (1 standard drink = 0.6 oz pur e alcohol) Sexually Active Control Partners Comments Not Currently Comments No Sex and Gender Information Value Date Recorded Sex Assigned at Female 11/22/2023 11:58 AM DIRECTOR IT Legal Sex Female 11:34 PM CDT Gender Identity Female 11/22/2023 11:58 AM DIRECTOR IT Sexual Orientation Not on file Occupation Industry [...] Description 03/12/2025 8:00 AM CDT Office Visit [facility] - Family Medicine - [place] #2 [place] [address] Marco Woods MD #2 [facility] [address] [place] [address] 05/11/2025 9:45 AM CDT Office Visit [facility] Medical [facility] - Endocrinology - [place] #2 [place] [address] Kirsten Niño MD #2 [facility] [address] [place] [address] 06/19/2025 10:00 AM CDT Office Visit [facility] - Pulmonology & Sleep Medicine [facility] #2 [place] [address] Michelle Mendes APRN, HEATING WORKER #2 [facility] [address] [place] [address] documented as of this encounter Visit Diagnoses Not on filedocumented in this encounter Additional Health Concerns Infection Onset Date Last Indicated Resolved Time COVID - 19 06/01/2023 06/01/2023 06/01/2023 8:16 AM CDT COVID - 19 11/01/2023 11/01/2023 11/11/2023 12:1 6 AM DIRECTOR IT COVID - 19 06/25/2024 06/25/2024 06/25/2024 6:36 PM CDT Assessment Noted Time PHQ-9 Depression Total Score: 0 11/22/19 10:00 AM DIRECTOR IT documented as of this encounter Care Teams Medical Advisor Relationship Specialty Start Date End Date Marco Woods MD #[facility] [address] [place] [address] PCP - General Family Medicine 11/22/17 Kirsten Niño MD #2 [facility] [address] [place] [address] Consulting Physician Endocrinology 07/17/22 Chin Burrows MD #2 [facility] [address] [place] [address] Consulting Physician General Surgery 11/22/22 Kelsea Root RN [place] Floor Clerk 06/15/23 08/26/23 Michelle Mendes APRN, HEATING WORKER #2 [facility] [address] [place] [address] Nurse Practitioner Advanced Practice Nurse 08/14/22 Chantelle Nix APRN, HEATING WORKER #2 [place] [address] Nurse Practitioner Advanced Practice Nurse 02/19/24 documented as of this encounter
--- OUTSIDE RECORDS SUMMARY | 2025-02-06 10:08 | XMS_ITS | Encounter Summary ---
Author Organization [facility] Address [address] [place] [address] Phone Care Team Providers Care Carrier Associate Name Role Phone Marco Woods MD Primary Care Provider [phone] Kirsten Niño MD Unavailable Chin Burrows MD Unavailable [phone] Michelle Mendes APRN, FOURDRINIER WIRE WEAVER Unavailable Chantelle Nix STRONG NITRIC OPERATOR, FOURDRINIER WIRE WEAVER Unavailable Reason for Visit * Reason Comments Medication Refill Encounter Details Date Type Department Care Team (Late st Contact Info) Description 04/04/2024 Refill [facility] Medical Group - Family Medicine - [place] [address] [place] [phone] Marco Woods MD [id number] [address] Medication Refill Social History Tobacco Use Types Packs/Day Years Used Date Smoking Tobacco: Never Smokeless Tobacco: Never Alcohol Use Standard Drinks/Week Comments Not Currently 0 (1 standard drink = 0.6 oz pur e alcohol) [facility] Utilities Answer Date Recorded In the [...] declined 11/28/2023 How often do you attend alevism or samaritan serv ices? Patient declined 11/28/2023 Do you belong to any clubs o r organizations such as alevism groups, unions, fraternal or athletic groups, or [...] 18 10/24 [facility] of Occupat ional Health - Occupational Stress [...] place to sleep or slept in a mcfp (including now)? Patient declined 11/28/2023 Education Answer Date Recorded What is the highest level of school you have completed or the highest degree you have received? 12th grade 04/03/2023 Sexually Active Control Partners Comments Not Currently Comments No Sex and Gender Information Value Date Recorded Sex Assigned at Female 11/22/2023 11:58 AM RAT EXTERMINATOR Legal Sex Female 11:34 PM CDT Gender Identity Female 11/22/2023 11:58 AM RAT EXTERMINATOR Sexual Orientation Not on file Occupation Industry [...] Dept 03/27/24 Office Visit Mirtha Steiner APRN, FOURDRINIER WIRE WEAVER [facility] [place] 03/12/24 Office Visit Marco Woods MD [facility] [place] 02/21/24 Office Visit [facility] 02/12/24 Office Visit Rebecca Liu STRONG NITRIC OPERATOR, [facility] 12/05/23 Office Visit Marco Woods MD [facility] [place] 11/20/23 Office Visit Ronald Shaffer APRN, [facility] 10/10/23 Office Visit Rebecca Liu APRN, [facility] 08/24/23 Office Visit Ranjit Linder MD [facility] 08/02/23 Office Visit Marco Woosd MD [facility] [place] 05/01/23 Office Visit Marco Woods MD [facility] Showing recent visits within past 365 days and meeting all other requirements Future Appointments Date Type Provider Dept 04/09/24 Appointment [facility] MD [facility] Showing future appointments within next 90 days and meeting all other requirements documented in this encounter Plan of Treatment Upcoming Encounters Date Type Department Care Team (Late st Contact Info) Description 03/12/2025 8:00 AM CDT Office Visit [facility] Medical [facility] - Family Medicine - [place] #2 [place] [address] Marco Woods MD #[address] [address] 05/11/2025 9:45 AM CDT Office Visit [facility] Medical [facility] - Endocrinology - [place] #2 [place] [address] Kirsten Niño MD #[address] [address] 06/19/2025 10:00 AM CDT Office Visit [facility] - Pulmonology & Sleep Medicine - [place] #2 [place] [address] Michelle Mendes APRN, FOURDRINIER WIRE WEAVER #2 [facility] [address] [place] [address] documented as of this encounter Visit Diagnoses Not on filedocumented in this encounter Additional Health Concerns Infection Onset Date Last Indicated Resolved Time COVID - 19 06/25/2024 06/25/2024 06/25/2024 6:36 PM CDT Assessment Noted Time PHQ-9 Depression Total Score: 18 024 10:00 AM RAT EXTERMINATOR documented as of this encounter Care Teams Carrier Associate Relationship Specialty Start Date End Date Marco Woods MD #[address] [address] PCP - General Family Medicine 11/22/17 Kirsten Niño MD #[address] [address] Consulting Physician Endocrinology 07/17/22 Chin Burrows MD #[address] [address] Consulting Physician General Surgery 11/22/22 Michelle Mendes APRN, FOURDRINIER WIRE WEAVER #2 [facility] [address] [place] [address] Nurse Practitioner Advanced Practice Nurse 08/14/22 Chantelle Nix APRN, FOURDRINIER WIRE WEAVER #2 [place] [address] Nurse Practitioner Advanced Practice Nurse 02/19/24 documented as of this encounter
--- OUTSIDE RECORDS SUMMARY | 2025-02-06 10:08 | XMS_ITS | Encounter Summary ---
Author Organization [facility] Address [address] [place] [address] Phone Care Team Providers Care Layup Worker Name Role Phone Marco Woods MD Primary Care Provider Kirsten Niño MD Unavailable Chin Burrows MD Unavailable [phone] Kelsea Root RN Unavailable Unavailable Michelle Mendes APRN, CLEANER HOUSEKEEPING Unavailable Chantelle Nix APRN, CLEANER HOUSEKEEPING Unavailable Reason for Visit * Reason Comments Medication Refill Encounter Details Date Type Department Care Team (Late st Contact Info) Description 10/17/2022 Refill [facility] - Family Medicine [facility] #[address] [place] [id number] Marco Woods MD [address] [address] Medication Refill Social History Tobacco Use Types Packs/Day Years Used Date Smoking Tobacco: Never Smokeless Tobacco: Never Alcohol Use Standard Drinks/Week Comments Not Currently 0 (1 standard drink = 0.6 oz pur e alcohol) Sexually Active Control Partners Comments Not Currently Comments No Sex and Gender Information Value Date Recorded Sex Assigned at Female 11/22/2023 11:58 AM WAREHOUSE ADMINISTRATOR Legal Sex Female 11:34 PM CDT Gender Identity Female 11/22/2023 11:58 AM WAREHOUSE ADMINISTRATOR Sexual Orientation Not on file Occupation Industry Job Start Date Job End Date disabled Not on file Not on file Not on file COVID-19 Exposure Response Date Recorded In the last 10 days, have yo u been in contact with someone who was confirmed or suspected to have Coronavirus/COVID-19? No / Unsure 10/11/2022 9:23 AM WAREHOUSE ADMINISTRATOR documented as of this encounter Miscellaneous Notes * Telephone Encounter - Maria Luz Sierra RN - 10/18/2022 8:37 AM CST duplicate HOUSE ADMINISTRATOR documented in this encounter Plan of Treatment Upcoming Encounters Date Type Department Care Team (Late st Contact Info) Description 03/12/2025 8:00 AM CDT [facility] Medicine - [place] #2 [place] [address] Marco Woods MD #2 [facility] [address] [place] [address] 05/11/2025 9:45 AM CDT [facility] - Endocrinology - [place] #2 [place] [address] Kirsten Niño MD #2 [facility] [address] [place] [address] 06/19/2025 10:00 AM CDT [facility] - [place] #2 [place] [phone] Michelle Mendes APRN, CLEANER HOUSEKEEPING #2 [facility] [address] [place] [address] documented as of this encounter Visit Diagnoses Not on filedocumented in this encounter Additional Health Concerns Infection Onset Date Last Indicated Resolved Time COVID - 19 11/20/2022 11/20/2022 11/24/2022 8:51 AM WAREHOUSE ADMINISTRATOR COVID - 19 12/31/2022 12/31/2022 01/10/2023 12:1 8 AM CDT COVID - 19 Confirmed 12/31/2022 12/31/2022 023 12:17 AM CDT COVID - 19 06/01/2023 06/01/2023 06/01/2023 8:16 AM CDT COVID - 19 11/01/2023 11/01/2023 11/11/2023 12:1 6 AM WAREHOUSE ADMINISTRATOR COVID - 19 06/25/2024 06/25/2024 06/25/2024 6:36 PM CDT Assessment Noted Time PHQ-9 Depression Total Score: 0 11/22/19 10:00 AM WAREHOUSE ADMINISTRATOR documented as of this encounter Care Teams Layup Worker Relationship Specialty Start Date End Date Marco Woods MD #2 [facility] [address] [place] [address] PCP - General Family Medicine 11/22/17 Kirsten Niño MD #2 [facility] [address] [place] [address] Consulting Physician Endocrinology 07/17/22 Chin Burrows MD #2 [facility] [address] [place] [address] Consulting Physician General Surgery 11/22/22 Kelsea Root RN [place] Plush Cutter 06/15/23 08/26/23 Michelle Mendes APRN, CLEANER HOUSEKEEPING #2 [facility] [address] [place] [address] Nurse Practitioner Advanced Practice Nurse 08/14/22 Chantelle Nix APRN, CLEANER HOUSEKEEPING #2 [place] [address] Nurse Practitioner Advanced Practice Nurse 02/19/24 documented as of this encounter
--- OUTSIDE RECORDS SUMMARY | 2025-02-06 10:08 | XMS_ITS | Encounter Summary ---
Author Organization [facility] Address [address] [place] [address] Phone Care Team Providers Care Model Maker Scale Name Role Phone Marco Woods MD Primary Care Provider Kirsten Niño MD Unavailable Chin Burrows MD Unavailable Michelle Mendes APRN, JAVA INTEGRATION DEVELOPER Unavailable [phone] Chantelle Nix APRN, JAVA INTEGRATION DEVELOPER Unavailable Reason for Visit * Reason Comments Medication Refill Encounter Details Date Type Department Care Team (Late st Contact Info) Description 10/03/2024 Refill [facility] - Gastroenterology - [place] #2 [place] [address] Chantelle Nix APRN, JAVA INTEGRATION DEVELOPER #2 [place] [address] Medication Refill Social History Tobacco Use Types Packs/Day Years Used Date Smoking Tobacco: Never Smokeless Tobacco: Never Alcohol Use Standard Drinks/Week Comments Not Currently 0 (1 standard drink = 0.6 oz pur e alcohol) [facility] Utilities Answer Date Recorded In the [...] declined 06/25/2024 How often do you attend methodist or yazdanism serv ices? Patient declined 06/25/2024 Do you belong to any clubs o r organizations such as methodist groups, unions, fraternal or athletic groups, or [...] Score - Questions 1-9 18 10/24 [facility] of Occupat ional [facility] - Occupational Stress Questionnaire Answer Date Recorded [...] a mcc (including now)? Patient declined 11/28/2023 Housing Stability [...] time in the past 12 m [facility], were you homeless or living in a mcc (including now)? Patient unable to answer 06/25/2024 Education Answer Date Recorded What is the highest level of school you have completed or the highest degree you have received? 12th grade 04/03/2023 Sexually Active Control Partners Comments Not Currently Comments No Sex and Gender Information Value Date Recorded Sex Assigned at Female 11/22/2023 11:58 AM OFFICE COORDINATOR Legal Sex Female 11:34 PM CDT Gender Identity Female 11/22/2023 11:58 AM OFFICE COORDINATOR Sexual Orientation Not on file Occupation [...] Dept Phone 10/31/2024 11:15 AM Kirsten Niño [facility] Endocrinology [facility] [phone] CE COORDINATOR * Telephone Encounter - Denise Honeycutt RN - 10/06/2024 9:16 AM OFFICE COORDINATOR Medication refilled and signed per [facility] chronic medication standing order for pediatric and adult patients. CE COORDINATOR documented in this encounter Plan of Treatment Upcoming Encounters Date Type Department Care Team (Late st Contact Info) Description 03/12/2025 8:00 AM CDT Office Visit [facility] Family Medicine [facility] #[address] [place] [address] Marco Woods MD #[address] [address] 05/11/2025 9:45 AM CDT Office Visit [facility] Endocrinology [facility] #[address] [place] [address] Kirsten Niño MD #2 [facility] [address] [place] [address] 06/19/2025 10:00 AM CDT Office Visit [facility] - Pulmonology & Sleep Medicine [facility] #2 [place] [address] Michelle Mendes APRN, JAVA INTEGRATION DEVELOPER #[address] [address] documented as of this encounter Visit Diagnoses Diagnosis Chronic constipation Unspecified constipation documented in this encounter Additional Health Concerns Assessment Noted Time PHQ-9 Depression Total Score: 18 024 10:00 AM OFFICE COORDINATOR documented as of this encounter Care Teams Model Maker Scale Relationship Specialty Start Date End Date Marco Woods MD #[address] [address] PCP - General Family Medicine 11/22/17 Kirsten Niño MD #[address] [address] Consulting Physician Endocrinology 07/17/22 Chin Burrows MD #[address] [address] Consulting Physician General Surgery 11/22/22 Michelle Mendes APRN, JAVA INTEGRATION DEVELOPER #[address] [address] Nurse Practitioner Advanced Practice Nurse 08/14/22 Chantelle Nix APRN, JAVA INTEGRATION DEVELOPER #2 [place] [address] Nurse Practitioner Advanced Practice Nurse 02/19/24 documented as of this encounter
--- OUTSIDE RECORDS SUMMARY | 2025-02-06 10:08 | XMS_ITS | Encounter Summary ---
Author Organization [facility] Address [address] [place] [address] Phone Care Team Providers Care Brokerage Branch Manager Name Role Phone Marco Woods MD Primary Care Provider Kirsten Niño MD Unavailable Chin Burrows MD Unavailable Kelsea Root RN Unavailable Unavailable Michelle Mendes APRN, UNIVERSITY INTERNSHIP Unavailable Chantelle Nix APRN, UNIVERSITY INTERNSHIP Unavailable Reason for Visit * Reason Comments Medication Refill Encounter Details Date Type Department Care Team (Late st Contact Info) Description [facility] [address] [place] [address] Kirsten Niño MD #[address] [address] Medication Refill Social History Tobacco Use Types Packs/Day Years Used Date Smoking Tobacco: Never Smokeless Tobacco: Former Alcohol Use Standard Drinks/Week Comments Not Currently 0 (1 standard drink = 0.6 oz pur e alcohol) Sexually Active Control Partners Comments Not Currently Comments No Sex and Gender Information Value Date Recorded Sex Assigned at Female 11/22/2023 11:58 AM SILK SCREEN PRINTER Legal Sex Female 11:34 PM CDT Gender Identity Female 11/22/2023 11:58 AM SILK SCREEN PRINTER Sexual Orientation Not on file Occupation Industry Job Start Date Job End Date disabled Not on file Not on file Not on file COVID-19 Exposure Response Date Recorded In the last 10 days, have ambar u been in contact with someone who was confirmed or suspected to have Coronavirus/COVID-19? No / Unsure 08/31/2022 8:58 AM SILK SCREEN PRINTER documented as of this encounter Plan of Treatment Upcoming Encounters Date Type Department Care Team (Late st Contact Info) Description 03/12/2025 8:00 AM CDT Office Visit [facility] Medical [facility] - Family Medicine - [place] #2 [place] [address] Marco Woods MD #2 [facility] [address] [place] [address] 05/11/2025 9:45 AM CDT Office Visit [facility] Medical [facility] - Endocrinology - [place] #2 [place] [address] Kirsten Niño MD #2 [facility] [address] [place] [address] 06/19/2025 10:00 AM CDT Office Visit [facility] - Pulmonology & Sleep Medicine [facility] #2 [place] [address] Michelle Mendes APRN, UNIVERSITY INTERNSHIP #2 [facility] [address] [place] [address] documented as of this encounter Visit Diagnoses Not on filedocumented in this encounter Additional Health Concerns Infection Onset Date Last Indicated Resolved Time COVID - 19 11/20/2022 11/20/2022 11/24/2022 8:51 AM SILK SCREEN PRINTER COVID - 19 12/31/2022 12/31/2022 01/10/2023 12:1 8 AM CDT COVID - 19 Confirmed 12/31/2022 12/31/2022 023 12:17 AM CDT COVID - 19 06/01/2023 06/01/2023 06/01/2023 8:16 AM CDT COVID - 19 11/01/2023 11/01/2023 11/11/2023 12:1 6 AM SILK SCREEN PRINTER COVID - 19 06/25/2024 06/25/2024 06/25/2024 6:36 PM CDT Assessment Noted Time PHQ-9 Depression Total Score: 0 11/22/19 10:00 AM SILK SCREEN PRINTER documented as of this encounter Care Teams Brokerage Branch Manager Relationship Specialty Start Date End Date Marco Woods MD #2 [facility] [address] [place] [address] PCP - General Family Medicine 11/22/17 Kirsten Niño MD #2 [facility] [address] [place] [address] Consulting Physician Endocrinology 07/17/22 Chin Burrows MD #2 [facility] [address] [place] [address] Consulting Physician General Surgery 11/22/22 Kelsea Root RN [place] Sample Hand 06/15/23 08/26/23 Michelle Mendes APRN, UNIVERSITY INTERNSHIP #2 [facility] [address] [place] [address] Nurse Practitioner Advanced Practice Nurse 08/14/22 Chantelle Nix APRN, UNIVERSITY INTERNSHIP #2 [place] [address] Nurse Practitioner Advanced Practice Nurse 02/19/24 documented as of this encounter
--- OUTSIDE RECORDS SUMMARY | 2025-02-06 10:08 | XMS_ITS | Encounter Summary ---
Author Organization [facility] Address [address] [place] [address] Phone Care Team Providers Care Roustabout Crew Leader Name Role Phone Marco Woods MD Primary Care Provider Kirsten Niño MD Unavailable Chin Burrows MD Unavailable Michelle Mendes APRN, CRUSHER SETTER Unavailable Chantelle Nix APRN, CRUSHER SETTER Unavailable Encounter Details Date Type Department Care Team (Late st Contact Info) Description 02/03/2025 Results Follow-Up [facility] - Endocrinology - [place] #2 [place] [address] Kirsten Niño MD #[address] [address] Social History Tobacco Use Types Packs/Day Years Used Date Smoking Tobacco: Never Smokeless Tobacco: Never Alcohol Use Standard Drinks/Week Comments Not Currently 0 (1 standard drink = 0.6 oz pur e alcohol) [facility] Utilities Answer Date Recorded In the [...] declined 06/25/2024 How often do you attend islam or mormon serv ices? Patient declined 06/25/2024 Do you belong to any clubs o r organizations such as islam groups, unions, fraternal or athletic groups, or [...] Total Score - Questions 1-9 18 10/24 [facility] - Occupational Stress Questionnaire Answer Date [...] place to sleep or slept in a snf (including now)? Patient declined 11/28/2023 Housing Stability [...] time in the past 12 m [facility], were you homeless or living in a snf (including now)? Patient unable to answer 06/25/2024 Education Answer Date Recorded What is the highest level of school you have completed or the highest degree you have received? 12th grade 04/03/2023 Sexually Active Control Partners Comments Not Currently Comments No Sex and Gender Information Value Date Recorded Sex Assigned at Female 11/22/2023 11:58 AM SMALL KICK PRESS OPERATOR Legal Sex Female 11:34 PM CDT Gender Identity Female 11/22/2023 11:58 AM SMALL KICK PRESS OPERATOR Sexual Orientation Not on file Occupation Industry Job Start Date Job End Date disabled Not on file Not on file Not on file documented as of this encounter Plan of Treatment Upcoming Encounters Date Type Department Care Team (Late st Contact Info) Description 03/12/2025 8:00 AM CDT Office Visit [facility] - Family Medicine [facility] #[address] [place] [address] Marco Woods MD #[address] [address] 05/11/2025 9:45 AM CDT Office Visit [facility] Medical [facility] - Endocrinology - [place] #2 [facility] [place] [address] Kirsten Niño MD #[address] [address] 06/19/2025 10:00 AM CDT [facility] - [place] #2 [place] [address] Michelle Mendes APRN, CRUSHER SETTER #[address] [address] documented as of this encounter Visit Diagnoses Not on filedocumented in this encounter Additional Health Concerns Assessment Noted Time PHQ-9 Depression Total Score: 18 024 10:00 AM SMALL KICK PRESS OPERATOR documented as of this encounter Care Teams Roustabout Crew Leader Relationship Specialty Start Date End Date Marco Woods MD #[address] [address] PCP - General Family Medicine 11/22/17 Kirsten Niño MD #[address] [place] [address] Consulting Physician Endocrinology 07/17/22 Chin Burrows MD #[address] [place] [address] Consulting Physician General Surgery 11/22/22 Michelle Mendes APRN, CRUSHER SETTER #[address] [address] Nurse Practitioner Advanced Practice Nurse 08/14/22 Chantelle Nix APRN, CRUSHER SETTER #[address] [place] [address] Nurse Practitioner Advanced Practice Nurse 02/19/24 documented as of this encounter
--- OUTSIDE RECORDS SUMMARY | 2025-02-06 10:08 | XMS_ITS | Encounter Summary ---
Author Organization [facility] Address [address] [place] [address] Phone Care Team Providers Care Rooming House Operator Name Role Phone Marco Woods MD Primary Care Provider [phone] Kirsten Niño MD Unavailable Chin Burrows MD Unavailable [phone] Kelsea Root RN Unavailable Unavailable Michelle Mendes APRN, STAFF DEVELOPMENT COORDINATOR RN Unavailable [phone] Chantelle Nix APRN, STAFF DEVELOPMENT COORDINATOR RN Unavailable Reason for Visit * Reason Comments Medication Refill Encounter Details Date Type Department Care Team (Late st Contact Info) Description 07/16/2023 Refill [facility] - [place] #2 [place] [address] Marco Woods MD [address] [address] Medication Refill Social History Tobacco Use Types [...] Sex Assigned at Female 11/22/2023 11:58 AM PHARMACEUTICAL DEVELOPMENT TECHNICIAN Legal Sex Female 11:34 PM CDT Gender Identity Female 11/22/2023 11:58 AM PHARMACEUTICAL DEVELOPMENT TECHNICIAN Sexual Orientation Not on file Occupation [...] [facility] - [place] #2 [place] [address] Marco Woods MD #2 [facility] [address] [place] [address] 05/11/2025 9:45 AM CDT Office [facility] - Endocr[facility] - [place] #2 [place] [address] Kirsten Niño MD #2 [facility] [address] [place] [address] 06/19/2025 10:00 AM CDT [facility] - [place] #2 [place] [address] Michelle Mendes APRN, STAFF DEVELOPMENT COORDINATOR RN #2 [facility] [address] [place] [address] documented as of this encounter Visit Diagnoses Not on filedocumented in this encounter Additional Health Concerns Infection Onset Date Last Indicated Resolved Time COVID - 19 11/01/2023 11/01/2023 11/11/2023 12:1 6 AM PHARMACEUTICAL DEVELOPMENT TECHNICIAN COVID - 06/25/2024 06/25/2024 06/25/2024 6:36 PM CDT Assessment Noted Time PHQ-9 Depression Total Score: 0 11/22/19 10:00 AM PHARMACEUTICAL DEVELOPMENT TECHNICIAN documented as of this encounter Care Teams Rooming House Operator Relationship Specialty Start Date End Date Marco Woods MD #2 [facility] [address] [place] [address] PCP - General Family Medicine 11/22/17 Kirsten Niño MD #2 [facility] [address] [place] [address] Consulting Physician Endocrinology 07/17/22 Chin Burrows MD #2 [facility] [address] [place] [address] Consulting Physician General Surgery 11/22/22 Kelsea Root RN [place] Hearing Aid Repairer 06/15/23 08/26/23 Michelle Mendes APRN, STAFF DEVELOPMENT COORDINATOR RN #2 [facility] [address] [place] [address] Nurse Practitioner Advanced Practice Nurse 08/14/22 Chantelle Nix APRN, STAFF DEVELOPMENT COORDINATOR RN #2 [place] [address] Nurse Practitioner Advanced Practice Nurse 02/19/24 documented as of this encounter
--- OUTSIDE RECORDS SUMMARY | 2025-02-06 10:08 | XMS_ITS | Encounter Summary ---
Author Organization [facility] Address [address] [place] [address] Phone Care Team Providers Care Junior Media Buyer Name Role Phone Marco Woods MD Primary Care Provider Kirsten Niño MD Unavailable Chin Burrosw MD Unavailable [phone] Michelle Mendes APRN, ENROLLMENT SERVICES DEAN Unavailable [phone] Chantelle Nix APRN, ENROLLMENT SERVICES DEAN Unavailable Reason for Visit * Reason Comments Medication Refill Encounter Details Date Type Department Care Team (Late st Contact Info) Description 12/23/2024 Refill [facility] Group - Gastroenterology - [place] #2 [place] [address] Chantelle Nix APRN, ENROLLMENT SERVICES [place] #2 [place] [address] Medication Refill Social History Tobacco Use Types Packs/Day Years Used Date Smoking Tobacco: Never Smokeless Tobacco: Never Alcohol Use Standard Drinks/Week Comments Not Currently 0 (1 standard drink = 0.6 oz pur e alcohol) [facility] Utilities Answer Date Recorded In [...] How often do you attend hindu or jewish serv ices? Patient declined 06/25/2024 Do you [...] Total Score - Questions 1-9 18 10/24 [facility] of Occupat ional [facility] - Occupational Stress Questionnaire Answer Date Recorded [...] place to sleep or slept in a half-way (including now)? Patient declined 11/28/2023 Housing Stability [...] any time in the past 12 m [facility], were you homeless or living in a half-way (including now)? Patient unable to answer 06/25/2024 Education Answer Date Recorded What is the highest level of school you have completed or the highest degree you have received? 12th grade 04/03/2023 Sexually Active Control Partners Comments Not Currently Comments No Sex and Gender Information Value Date Recorded Sex Assigned at Female 11/22/2023 11:58 AM ELECTRONIC PUBLISHING SPECIALIST Legal Sex Female 11:34 PM CDT Gender Identity Female 11/22/2023 11:58 AM ELECTRONIC PUBLISHING SPECIALIST Sexual Orientation Not on file Occupation Industry Job Start Date Job End Date disabled Not on file Not on file Not on file documented as of this encounter Miscellaneous Notes * Telephone Encounter - Denise Honeycutt RN - 12/24/2024 8:23 AM ELECTRONIC PUBLISHING SPECIALIST Medication refilled and signed per [facility] chronic medication standing order for pediatric and adult patients. TRONIC PUBLISHING SPECIALIST documented in this encounter Plan of Treatment Upcoming Encounters Date Type Department Care Team (Late st Contact Info) Description 03/12/2025 8:00 AM CDT Office Visit [facility] - Family Medicine - [place] [address] [place] [address] Marco Woods MD #2 [facility] [address] [place] [address] 05/11/2025 9:45 AM CDT Office Visit [facility] Endocrinology - [place] #2 [place] [address] Kirsten Niño MD #2 [facility] [address] [place] [address] 06/19/2025 10:00 AM CDT Office Visit [facility] - Pulmonology & Sleep Medicine [facility] #[address] [place] [address] Michelle Mendes APRN, ENROLLMENT SERVICES DEAN #2 [facility] [address] [place] [address] documented as of this encounter Visit Diagnoses Diagnosis Chronic constipation Unspecified constipation documented in this encounter Additional Health Concerns Assessment Noted Time PHQ-9 Depression Total Score: 18 024 10:00 AM ELECTRONIC PUBLISHING SPECIALIST documented as of this encounter Care Teams Junior Media Buyer Relationship Specialty Start Date End Date Marco Woods MD #2 [facility] [address] [place] [address] PCP - General Family Medicine 11/22/17 Kirsten Niño MD #2 [facility] [address] [place] [address] Consulting Physician Endocrinology 07/17/22 Chin Burrows MD #[address] [address] Consulting Physician General Surgery 11/22/22 Michelle Mendes APRN, ENROLLMENT SERVICES [place] #[address] [address] Nurse Practitioner Advanced Practice Nurse 08/14/22 Chantelle Nix APRN, ENROLLMENT SERVICES [place] #2 [place] [address] Nurse Practitioner Advanced Practice Nurse 02/19/24 documented as of this encounter
--- OUTSIDE RECORDS SUMMARY | 2025-02-06 10:08 | XMS_ITS | Encounter Summary ---
Author Organization [facility] Address [address] [place] [address] Phone Care Team Providers Care Wick Tender Name Role Phone Marco Woods MD Primary Care Provider [phone] Kirsten Niño MD Unavailable Chin Burrows MD Unavailable Michelle Mendes APRN, SPRINKLING SYSTEM INSTALLER Unavailable [phone] Chantelle Nix LANCE CREWMEMBER/MLRS SERGEANT, SPRINKLING SYSTEM INSTALLER Unavailable Reason for Visit * Reason Comments Medication Refill Encounter Details Date Type Department Care Team (Late st Contact Info) Description 01/23/2024 Refill [facility] Medical Group - Family Medicine - [place] [address] [place] [phone] Marco Woods MD [id number] [address] Medication Refill Social History Tobacco Use Types Packs/Day Years Used Date Smoking Tobacco: Never Smokeless Tobacco: Never Alcohol Use Standard Drinks/Week Comments Not Currently 0 (1 standard drink = 0.6 oz pur e alcohol) [facility] Utilities Answer Date Recorded In the [...] How often do you attend confucianism or confucianist serv ices? Patient declined 11/28/2023 Do you [...] Total Score - Questions 1-9 18 10/24 [facility] ional [facility] - [...] a snf (including now)? Patient declined 11/28/2023 Education Answer Date Recorded What is the highest level of school you have completed or the highest degree you have received? 12th grade 04/03/2023 Sexually Active Control Partners Comments Not Currently Comments No Sex and Gender Information Value Date Recorded Sex Assigned at Female 11/22/2023 11:58 AM TURRET PUNCH OPERATOR Legal Sex Female 11:34 PM CDT Gender Identity Female 11/22/2023 11:58 AM TURRET PUNCH OPERATOR Sexual Orientation Not on file Occupation [...] 28 28 Tablet Maria Antonia Galeana MD [facility] - Alt... ATORVASTATIN CALCIUM 20 MG TABS 12/13/2023 21 21 Tablet Maria Antonia Galeana MD [facility] - Alt... ATORVASTATIN 20MG TABLETS 10/06/2023 90 90 Each Marco Woods MD [facility] #... documented in this encounter Plan of Treatment Upcoming Encounters Date Type Department Care Team (Late st Contact Info) Description 03/12/2025 8:00 AM CDT [facility] [place] [facility] [place] [place] [address] Marco Woods MD #2 [facility] [address] [place] [address] 05/11/2025 9:45 AM CDT [facility] [place] #2 [place] [address] Kirsten Niño MD #2 [facility] [address] [place] [address] 06/19/2025 10:00 AM CDT [facility] - Pulmonology & Sleep Medicine - [place] #2 [place] [address] Michelle Mendes, LANCE CREWMEMBER/MLRS SERGEANT, SPRINKLING SYSTEM INSTALLER #2 [facility] [address] [place] [address] documented as of this encounter Visit Diagnoses Not on filedocumented in this encounter Additional Health Concerns Infection Onset Date Last Indicated Resolved Time COVID - 19 06/25/2024 06/25/2024 06/25/2024 6:36 PM CDT Assessment Noted Time PHQ-9 Depression Total Score: 18 024 10:00 AM TURRET PUNCH OPERATOR documented as of this encounter Care Teams Wick Tender Relationship Specialty Start Date End Date Marco Woods MD #2 [facility] [address] [place] [address] PCP - General Family Medicine 11/22/17 Kirsten Niño MD #2 [facility] [address] [place] [address] Consulting Physician Endocrinology 07/17/22 Chin Burrows MD #[address] [address] Consulting Physician General Surgery 11/22/22 Michelle Mendes APRN, SPRINKLING SYSTEM INSTALLER #[address] [address] Nurse Practitioner Advanced Practice Nurse 08/14/22 Chantelle Nix APRN, SPRINKLING SYSTEM INSTALLER #2 [place] [address] Nurse Practitioner Advanced Practice Nurse 02/19/24 documented as of this encounter
--- OUTSIDE RECORDS SUMMARY | 2025-02-06 10:08 | XMS_ITS | Encounter Summary ---
Author Organization [facility] Address [address] [place] [address] Phone Care Team Providers Care Advertising Assistant Name Role Phone Marco Woods MD Primary Care Provider Kirsten Niño MD Unavailable Chin Burrows MD Unavailable Kelsea Root RN Unavailable Unavailable Michelle Mendes APRN, REVENUE INVESTIGATOR Unavailable Chantelle Nix APRN, REVENUE INVESTIGATOR Unavailable Reason for Visit * Reason Comments Medication Refill Encounter Details Date Type Department Care Team (Late st Contact Info) Description 02/11/2022 Refill [facility] - Pulmonology & Sleep Medicine - [place] [address] [place] [phone] Michelle Mendes APRN, REVENUE INVESTIGATOR #[id number] [address] Medication Refill Social History Tobacco Use Types Packs/Day Years Used Date Smoking Tobacco: Never Smokeless Tobacco: Former Alcohol Use Standard Drinks/Week Comments Not Currently 0 (1 standard drink = 0.6 oz pur e alcohol) Sexually Active Control Partners Comments Not Currently Comments No Sex and Gender Information Value Date Recorded Sex Assigned at Female 11/22/2023 11:58 AM POUCH MAKER Legal Sex Female 11:34 PM CDT Gender Identity Female 11/22/2023 11:58 AM POUCH MAKER Sexual Orientation Not on file Occupation Industry [...] Mendes APRN, DREW [facility] [address] 01/10/22 Office Visit Marco Woods MD [facility] 11/11/21 Office Visit Michelle Mendes APRN, DREW [facility] [place] [address] 10/04/21 Office Visit Marco Woods MD [facility] 08/08/21 Office Visit Michelle Mendes APRN, CNP [facility] [place] [address] 06/29/21 Office Visit Marco [...] Provider Dept 04/19/22 Appointment Marco Woods MD [facility] Showing future appointments within next 90 days and meeting all other requirements documented in this encounter Plan of Treatment Upcoming Encounters Date Type Department Care Team (Late st Contact Info) Description 03/12/2025 8:00 AM CDT Office Visit [facility] Medical [facility] - Family Medicine - [place] #2 [place] [address] Marco Woods MD #2 [facility] [address] [place] [address] 05/11/2025 9:45 AM CDT Office Visit [facility] Medical [facility] - Endocrinology - [place] #2 [facility] [address] Kirsten Niño MD #2 [facility] [address] [place] [address] 06/19/2025 10:00 AM CDT Office Visit [facility] Medical [facility] - Pulmonology & Sleep Medicine - [place] #2 [facility] [address] Michelle Mendes APRN, REVENUE INVESTIGATOR #2 [facility] [address] [place] [address] documented as of this encounter Visit Diagnoses Diagnosis PNAR (perennial non-allergic rhinitis) Chronic rhinitis documented in this encounter Additional Health Concerns Infection Onset Date Last Indicated Resolved Time COVID - 19 06/29/2022 06/29/2022 07/09/2022 12:1 6 AM CDT COVID - 19 11/20/2022 11/20/2022 11/24/2022 8:51 AM POUCH MAKER COVID - 19 12/31/2022 12/31/2022 01/10/2023 12:1 8 AM CDT COVID - 19 Confirmed 12/31/2022 12/31/2022 023 12:17 AM CDT COVID - 19 06/01/2023 06/01/2023 06/01/2023 8:16 AM CDT COVID - 19 11/01/2023 11/01/2023 11/11/2023 12:1 6 AM POUCH MAKER COVID - 19 06/25/2024 06/25/2024 06/25/2024 6:36 PM CDT Assessment Noted Time PHQ-9 Depression Total Score: 0 11/22/19 10:00 AM POUCH MAKER documented as of this encounter Care Teams Advertising Assistant Relationship Specialty Start Date End Date Marco Woods MD #2 [facility] [address] [place] [address] PCP - General Family Medicine 11/22/17 Kirsten Niño MD #2 [facility] [address] [place] [address] Consulting Physician Endocrinology 07/17/22 Chin Burrows MD #2 [facility] [address] [place] [address] Consulting Physician General Surgery 11/22/22 Kelsea Root RN [place] Area Forester 06/15/23 08/26/23 Michelle Mendes APRN, REVENUE INVESTIGATOR #2 [facility] [address] [place] [address] Nurse Practitioner Advanced Practice Nurse 08/14/22 Chantelle Nix APRN, REVENUE INVESTIGATOR #2 [place] [address] Nurse Practitioner Advanced Practice Nurse 02/19/24 documented as of this encounter
--- OUTSIDE RECORDS SUMMARY | 2025-02-06 10:08 | XMS_ITS | Encounter Summary ---
Author Organization [facility] Address [address] [place] [address] Phone Care Team Providers Care Wood Heel Back Liner Name Role Phone Marco Woods MD Primary Care Provider Kirsten Niño MD Unavailable Chin Burrows MD Unavailable [phone] Kelsea Root RN Unavailable Unavailable Michelle Mendes APRN, ENTERPRISE CLOUD ARCHITECT Unavailable Chantelle Nix APRN, ENTERPRISE CLOUD ARCHITECT Unavailable Reason for Visit * Reason Comments Medication Refill Encounter Details Date Type Department Care Team (Late st Contact Info) Description 02/01/2023 Refill [facility] - Gastroenterology - [place] #[address] [place] [phone] Deanna Leavitt Humera, PAC [address] [place] [address] Medication Refill Social History Tobacco Use Types Packs/Day Years Used Date Smoking Tobacco: Never Smokeless Tobacco: Never Alcohol Use Standard Drinks/Week Comments Not Currently 0 (1 standard drink = 0.6 oz pur e alcohol) Sexually Active Control Partners Comments Not Currently Comments No Sex and Gender Information Value Date Recorded Sex Assigned at Female 11/22/2023 11:58 AM BANQUET LEAD Legal Sex Female 11:34 PM CDT Gender Identity Female 11/22/2023 11:58 AM BANQUET LEAD Sexual Orientation Not on file Occupation Industry [...] 03/12/2025 8:00 AM CDT Office Visit [facility] Medical Group - Family Medicine - [place] #[address] [place] [address] Marco Woods MD [address] [address] 05/11/2025 9:45 AM CDT Office Visit [facility] Medical Group - Endocrinology - [place] #2 [place] [address] Kirsten Niño MD #2 [facility] [address] [place] [address] 06/19/2025 10:00 AM CDT Office Visit [facility] - Pulmonology & Sleep Medicine [facility] #2 [place] [address] Michelle Mendes APRN, ENTERPRISE CLOUD ARCHITECT #2 [facility] [address] [place] [address] documented as of this encounter Visit Diagnoses Diagnosis Gastroesophageal reflux disease without esophagitis Esophageal reflux documented in this encounter Additional Health Concerns Infection Onset Date Last Indicated Resolved Time COVID - 19 06/01/2023 06/01/2023 06/01/2023 8:16 AM CDT COVID - 19 11/01/2023 11/01/2023 11/11/2023 12:1 6 AM BANQUET LEAD COVID - 19 06/25/2024 06/25/2024 06/25/2024 6:36 PM CDT Assessment Noted Time PHQ-9 Depression Total Score: 0 11/22/19 10:00 AM BANQUET LEAD documented as of this encounter Care Teams Wood Heel Back Liner Relationship Specialty Start Date End Date Marco Woods MD #2 [facility] [address] [place] [address] PCP - General Family Medicine 11/22/17 Kirsten Niño MD #2 [facility] [address] [place] [address] Consulting Physician Endocrinology 07/17/22 Chin Burrows MD #2 [facility] [address] [place] [address] Consulting Physician General Surgery 11/22/22 Kelsea Root RN [place] Pmo Lead 06/15/23 08/26/23 Michelle Mendes APRN, ENTERPRISE CLOUD ARCHITECT #[address] [address] Nurse Practitioner Advanced Practice Nurse 08/14/22 Chantelle Nix APRN, ENTERPRISE CLOUD ARCHITECT #2 [place] [address] Nurse Practitioner Advanced Practice Nurse 02/19/24 documented as of this encounter
--- OUTSIDE RECORDS SUMMARY | 2025-02-06 10:08 | XMS_ITS | Encounter Summary ---
Author Organization [facility] Address [address] [place] [address] Phone Care Team Providers Care Freelance Recruiter Name Role Phone Marco Woods MD Primary Care Provider [phone] Kirsten Niño MD Unavailable Chin Burrows MD Unavailable [phone] Michelle Mendes APRN, BASE CLOTH INSPECTOR Unavailable Chantelle Nix APRN, BASE CLOTH INSPECTOR Unavailable Reason for Visit * Reason Comments Medication Refill Encounter Details Date Type Department Care Team (Late st Contact Info) Description 05/10/[address] [facility] - Pulmonology & Sleep Medicine - [place] #2 [place] [phone] Michelle Mendes APRN, BASE CLOTH INSPECTOR #[address] [address] Medication Refill Social History Tobacco Use Types Packs/Day Years Used Date Smoking Tobacco: Never Smokeless Tobacco: Never Alcohol Use Standard Drinks/Week Comments Not Currently 0 (1 standard drink = 0.6 oz pur e alcohol) [facility] Utilities Answer Date Recorded In the past 12 months has [employer] electric, gas, oil, or water company threatened [...] declined 11/28/2023 How often do you attend restoration or temple serv ices? Patient declined 11/28/2023 Do you belong to any clubs o r organizations such as restoration groups, unions, fraternal or athletic groups, or [...] Total Score - Questions 1-9 18 10/24 [facility] - Occupational Stress Questionnaire Answer [...] Sex Assigned at Female 11/22/2023 11:58 AM ACCESS LEAD Legal Sex Female 11:34 PM CDT Gender Identity Female 11/22/2023 11:58 AM ACCESS LEAD Sexual Orientation Not on file Occupation [...] Visit [facility] - Family Medicine - [place] [address] [place] [address] Marco Woods MD [address] [address] 05/11/2025 9:45 AM CDT Office Visit [facility] - Endocrinology - [place] #2 [place] [address] Kristen Niño MD #2 [facility] [address] [place] [address] 06/19/2025 10:00 AM CDT [facility] - Pulmonology & Sleep Medicine - [place] #2 [place] [address] Michelle Mendes APRN, BASE CLOTH INSPECTOR #2 [facility] [address] [place] [address] documented as of this encounter Visit Diagnoses Not on filedocumented in this encounter Additional Health Concerns Infection Onset Date Last Indicated Resolved Time COVID - 19 06/25/2024 06/25/2024 06/25/2024 6:36 PM CDT Assessment Noted Time PHQ-9 Depression Total Score: 18 024 10:00 AM ACCESS LEAD documented as of this encounter Care Teams Freelance Recruiter Relationship Specialty Start Date End Date Marco Woods MD #2 [facility] [address] [place] [address] PCP - General Family Medicine 11/22/17 Kirsten Niño MD #2 [facility] [address] [place] [address] Consulting Physician Endocrinology 07/17/22 Chin Burrows MD #[address] [address] Consulting Physician General Surgery 11/22/22 Michelle Mendes APRN, DREW #[address] [address] Nurse Practitioner Advanced Practice Nurse 08/14/22 Chantelle Nix APRN, DREW #2 [place] [address] Nurse Practitioner Advanced Practice Nurse 02/19/24 documented as of this encounter
--- OUTSIDE RECORDS SUMMARY | 2025-02-06 10:08 | XMS_ITS | Encounter Summary ---
Author Organization [facility] Address [address] [place] [address] Phone Care Team Providers Care Wrinkle Chaser Name Role Phone Marco Woods MD Primary Care Provider [phone] Kirsten Niño MD Unavailable Chin Burrows MD Unavailable Michelle Mendes APRN, ICU TECH Unavailable Chantelle Nix SPANISH INSTRUCTOR, ICU TECH Unavailable Reason for Visit * Reason Comments Medication Refill Encounter Details Date Type Department Care Team (Late st Contact Info) Description 03/18/2024 Refill [facility] Group - Family Medicine - [place] #[address] [place] [address] Marco Woods MD [address] [address] Medication Refill Social History Tobacco Use Types Packs/Day Years Used Date Smoking Tobacco: Never Smokeless Tobacco: Never Alcohol Use Standard Drinks/Week Comments Not Currently 0 (1 standard drink = 0.6 oz pur e alcohol) [facility] Utilities Answer Date Recorded In the [...] declined 11/28/2023 How often do you attend pentecostalism or restoration serv ices? Patient declined 11/28/2023 Do you belong to any clubs o r organizations such as pentecostalism groups, unions, fraternal or athletic groups, or [...] Sex Assigned at Female 11/22/2023 11:58 AM REGISTERED PUBLIC SURVEYOR Legal Sex Female 11:34 PM CDT Gender Identity Female 11/22/2023 11:58 AM REGISTERED PUBLIC SURVEYOR Sexual Orientation Not on file Occupation Industry [...] Dept 03/12/24 Office Visit Marco Woods MD [facility] [place] 02/21/24 Office Visit Am[facility] 02/12/24 Office Visit Rebecca Liu, SPANISH INSTRUCTOR, ICU TECH [facility] [place] 12/05/23 [facility] 11/20/23 Office Visit Ronald Shaffer, SPANISH INSTRUCTOR, ICU TECH [facility] [place] 10/10/23 Office Visit Rebecca Liu APRN, ICU TECH [facility] [place] 08/24/23 [facility] Office Visit Marco Woods MD [facility] [place] 05/01/23 Office Visit Marco Woods MD [facility] [place] 04/18/23 Office Visit Marco Woods MD [facility] Showing recent visits within past 365 days and meeting all other requirements Future Appointments Date Type Provider Dept 04/09/24 Appointment Marco Woods MD [facility] [place] Showing future appointments within next 90 days and meeting all other requirements * Telephone Encounter - Amada Orozco RN - 03/19/2024 9:39 AM CDT Images from the original note were not included. Dexlansoprazole Dispensed Days Supply Quantity Provider Pharmacy DEXLANSOPRAZOLE 60 MG CPDR 02/21/2024 28 28 Capsule Maria Antonia Galeana MD [facility] - Alt... DEXLANSOPRAZOLE 60 MG CPDR 01/29/2024 28 28 Capsule Maria Antonia Galeana MD [facility] - Alt. documented in this encounter Plan of Treatment Upcoming Encounters Date Type Department Care Team (Late st Contact Info) Description 03/12/2025 8:00 AM CDT Office Visit [facility] - Family Medicine - [place] #[address] [place] [address] Marco Woods MD #[address] [address] 05/11/2025 9:45 AM CDT [facility] - Endocrinology - [place] #2 [place] [address] Kirsten Niño MD #2 [facility] [address] [place] [address] 06/19/2025 10:00 AM CDT [facility] - Pulmonology & Sleep Medicine - [place] #2 [place] [address] Michelle Mendes APRN, ICU TECH #2 [facility] [address] [place] [address] documented as of this encounter Visit Diagnoses Not on filedocumented in this encounter Additional Health Concerns Infection Onset Date Last Indicated Resolved Time COVID - 19 06/25/2024 06/25/2024 06/25/2024 6:36 PM CDT Assessment Noted Time PHQ-9 Depression Total Score: 18 024 10:00 AM REGISTERED PUBLIC SURVEYOR documented as of this encounter Care Teams Wrinkle Chaser Relationship Specialty Start Date End Date Marco Woods MD #2 [facility] [address] [place] [address] PCP - General Family Medicine 11/22/17 Kirsten Niño MD #2 [facility] [address] [place] [address] Consulting Physician Endocrinology 07/17/22 Chin Burrows MD #[address] [address] Consulting Physician General Surgery 11/22/22 Michelle Mendes APRN, DREW [address] [address] Nurse Practitioner Advanced Practice Nurse 08/14/22 Chantelle Nix APRN, DREW #2 [place] [address] Nurse Practitioner Advanced Practice Nurse 02/19/24 documented as of this encounter
--- OUTSIDE RECORDS SUMMARY | 2025-02-06 10:08 | XMS_ITS | Encounter Summary ---
Author Organization [facility] Address [address] [place] [address] Phone Care Team Providers Care Pier Hand Helper Name Role Phone Marco Woods MD Primary Care Provider Kirsten Niño MD Unavailable Chin Burrows MD Unavailable Michelle Mendes APRN, FLYER MAKER Unavailable [phone] Chantelle Nix APRN, FLYER MAKER Unavailable Encounter Details Date Type Department Care Team (Late st Contact Info) Description 03/04/2024 Telephone [facility] [address] [place] [address] Marco Woods MD #2 [facility] [place] [address] Social History Tobacco Use Types Packs/Day Years Used Date Smoking Tobacco: Never Smokeless Tobacco: Never Alcohol Use Standard Drinks/Week Comments Not Currently 0 (1 standard drink = 0.6 oz pur e alcohol) [facility] Utilities Answer Date Recorded In [...] How often do you attend orthodox or taoist serv ices? Patient declined 11/28/2023 Do you [...] Total Score - Questions 1-9 18 10/24 [facility] of Occupat ional Health - [...] declined 11/28/2023 Housing Stability Vital Sign Answer Ricadro e Recorded In the last 12 months, [...] place to sleep or slept in a prison (including now)? Patient declined 11/28/2023 Education Answer Date Recorded What is the highest level of school you have completed or the highest degree you have received? 12th grade 04/03/2023 Sexually Active Control Partners Comments Not Currently Comments No Sex and Gender Information Value Date Recorded Sex Assigned at Female 11/22/2023 11:58 AM STONE GLUER Legal Sex Female 11:34 PM CDT Gender Identity Female 11/22/2023 11:58 AM STONE GLUER Sexual Orientation Not on file Occupation Industry Job Start Date Job End Date disabled Not on file Not on file Not on file documented as of this encounter Plan of Treatment Upcoming Encounters Date Type Department Care Team (Late st Contact Info) Description 03/12/2025 8:00 AM CDT Office Visit [facility] Medical [facility] - Family Medicine [facility] #2 [place] [address] Marco Woods MD #2 [facility] [address] [place] [address] 05/11/2025 9:45 AM CDT Office Visit [facility] - Endocrinology [facility] #[address] [place] [address] Kirsten Niño MD #2 [facility] [address] [place] [address] 06/19/2025 10:00 AM CDT Office Visit [facility] - Pulmonology & Sleep Medicine [facility] #2 [place] [address] Michelle Mendes APRN, FLYER MAKER #2 [facility] [address] [place] [address] documented as of this encounter Visit Diagnoses Not on filedocumented in this encounter Additional Health Concerns Infection Onset Date Last Indicated Resolved Time COVID - 19 06/25/2024 06/25/2024 06/25/2024 6:36 PM CDT Assessment Noted Time PHQ-9 Depression Total Score: 18 024 10:00 AM STONE GLUER documented as of this encounter Care Teams Pier Hand Helper Relationship Specialty Start Date End Date Marco Woods MD #2 [facility] [address] [place] [address] PCP - General Family Medicine 11/22/17 Kirsten Niño MD #2 [facility] [address] [place] [address] Consulting Physician Endocrinology 07/17/22 Chin Burrows MD #2 [facility] [address] [place] [address] Consulting Physician General Surgery 11/22/22 Michelle Mendes APRN, DREW #2 [facility] [address] [place] [address] Nurse Practitioner Advanced Practice Nurse 08/14/22 Chantelle Nix APRN, FLYER MAKER #2 [place] [address] Nurse Practitioner Advanced Practice Nurse 02/19/24 documented as of this encounter
--- OUTSIDE RECORDS SUMMARY | 2025-02-06 10:08 | XMS_ITS | Encounter Summary ---
Author Organization [facility] Address [address] [place] [address] Phone Care Team Providers Care Local Delivery Truck Driver Name Role Phone Marco Woods MD Primary Care Provider Kirsten Niño MD Unavailable Chin Burrows MD Unavailable [phone] Kelsea Root RN Unavailable Unavailable Michelle Mendes APRN, TESTING LEAD Unavailable Chantelle Nix APRN, TESTING LEAD Unavailable Reason for Visit * Reason Onset Date Comments Medication Management 07/24/2022 Encounter Details Date Type Department Care Team (Late st Contact Info) Description 07/24/2022 Nurse Triage [facility] [address] [place] [address] Marco Woods MD #2 [facility] [place] [address] Medication Management Social History Tobacco Use Types Packs/Day Years Used Date Smoking Tobacco: Never Smokeless Tobacco: Former Alcohol Use Standard Drinks/Week Comments Not Currently 0 (1 standard drink = 0.6 oz pur e alcohol) Sexually Active Control Partners Comments Not Currently Comments No Sex and Gender Information Value Date Recorded Sex Assigned at Female 11/22/2023 11:[address] TEAM MEMBER Legal Sex Female 11:34 PM CDT Gender Identity Female 11/22/2023 11:[address] TEAM MEMBER Sexual Orientation Not on file Occupation Industry [...] Description 03/12/2025 8:00 AM CDT Office Visit [facility] - Family Medicine - [place] #[address] [place] [address] Marco Woods MD #2 [facility] [address] [place] [address] 05/11/2025 9:45 AM CDT Office Visit [facility] Medical [facility] - Endocrinology - [place] #[address] [place] [address] Kirsten Niño MD #2 [facility] [address] [place] [address] 06/19/2025 10:00 AM CDT Office Visit [facility] - Pulmonology & Sleep Medicine - [place] #[address] [place] [address] Michelle Mendes APRN, TESTING LEAD #2 [facility] [address] [place] [address] documented as of this encounter Visit Diagnoses Not on filedocumented in this encounter Additional Health Concerns Infection Onset Date Last Indicated Resolved Time COVID - 19 11/20/2022 11/20/2022 11/24/2022 8:[address] TEAM MEMBER COVID - 19 12/31/2022 12/31/2022 01/10/2023 12:1 8 AM CDT COVID - 19 Confirmed 12/31/2022 12/31/202201/2 023 12:17 AM CDT COVID - 19 06/01/2023 06/01/2023 06/01/2023 8:16 AM CDT COVID - 19 11/01/2023 11/01/2023 11/11/2023 12:[address] TEAM MEMBER COVID - 19 06/25/2024 06/25/2024 06/25/2024 6:36 PM CDT Assessment Noted Time PHQ-9 Depression Total Score: 0 11/22/19 10:[address] TEAM MEMBER documented as of this encounter Care Teams Local Delivery Truck Driver Relationship Specialty Start Date End Date Marco Woods MD #2 [facility] [address] [place] [address] PCP - General Family Medicine 11/22/17 Kirsten Niño MD #2 [facility] [address] [place] [address] Consulting Physician Endocrinology 07/17/22 Chin Burrows MD #2 [facility] [address] [place] [address] Consulting Physician General Surgery 11/22/22 Kelsea Root RN [place] Assembler Rubber Footwear 06/15/23 08/26/23 Michelle Mendes APRN, TESTING LEAD #2 [facility] [address] [place] [address] Nurse Practitioner Advanced Practice Nurse 08/14/22 Chantelle Nix APRN, TESTING LEAD #2 [place] [address] Nurse Practitioner Advanced Practice Nurse 02/19/24 documented as of this encounter
--- OUTSIDE RECORDS SUMMARY | 2025-02-06 10:08 | XMS_ITS | Referral Summary ---
[facility] Address [address] [place] [address] Care Team Providers Care Paper Inserter Name Role Phone Nikhil Robles MD Primary Care Provider [phone] Allergies Active Allergy Reactions Criticality Noted Date [...] Nasal saline spray (Simply saline, Little Remedies, [place], [place]) 2 second sprays or 2 squeezes into [...] on file Legal Sex Female 6:03 PM YARDING ENGINEER Gender Identity Not on file Sexual Orientation Not on file Last Filed Vital Signs Vital Sign Reading Time Taken Comments Blood Pressure 170/75 09/19/2023 10:51 AM YARDING ENGINEER Pulse 114 09/19/2023 2:00 PM YARDING ENGINEER Temperature 36.6 C (97.8 F) 09/19/2023 10:51 AM YARDING ENGINEER Respiratory Rate 18 09/19/2023 10:51 AM YARDING ENGINEER Oxygen Saturation 98% 09/19/2023 10:51 AM YARDING ENGINEER Inhaled Oxygen Concentration - - Weight 80.3 kg (177 lb) 09/18/2023 3:16 PM YARDING ENGINEER Height 157.5 cm (5' 2 ) 09/18/2023 3:16 PM YARDING ENGINEER Body Mass Index 32.37 09/18/2023 3:16 PM YARDING ENGINEER Plan of Treatment Not on file Insurance [facility] MEDICARE ADVANTAGE [facility] MDCR HMO REF Member Subscriber Plan / Payer (Ef fective 2021-Present) Name:BeatrizKim goldendavid Pandya Relation to Subscriber:Self Name:BeatrizKim goldendavid Pandya Payer ID:[id number] (NAIC) Type:[facility] MEDICARE Address: [place] [id number] [facility] MEDICARE ADVANTAGE Advance Directives For more information, please contact: [phone] * Full Code (Latest Code Status on File) Date Activated Date Inactivated Comments 09/18/2023 2:35 PM 09/19/2023 6:39 PM * Full Code Date Activated Date Inactivated Comments 09/18/2023 12:47 PM 09/18/2023 2:35 PM Care Teams Paper Inserter Relationship Specialty Start Date End Date Nikhil Robles MD [address] [place] [address] PCP - General Emergency Medicine 03/12/24
--- OUTSIDE RECORDS SUMMARY | 2025-02-06 10:08 | XMS_ITS | Encounter Summary ---
Author Organization [facility] Address [address] [place] [address] Phone Care Team Providers Care Conference Service Coordinator Name Role Phone Marco Woods MD Primary Care Provider [phone] Kirsten Niño MD Unavailable Chin Burrows MD Unavailable Michelle Mendes PALEOLOGY PROFESSOR, INCLUSION INTERNSHIP Unavailable [phone] Chantelle Nix PALEOLOGY PROFESSOR, INCLUSION INTERNSHIP Unavailable Reason for Visit * Reason Onset Date Comments Advice Only 12/01/2024 Encounter Details Date Type Department Care Team (Late st Contact Info) Description 12/01/2024 Telephone [facility] [address] [place] [address] Marco Woods MD #2 [place] [address] Advice Only Social History Tobacco Use Types Packs/Day Years Used Date Smoking Tobacco: Never Smokeless Tobacco: Never Alcohol Use Standard Drinks/Week Comments Not Currently 0 (1 standard drink = 0.6 oz pur e alcohol) [facility] Utilities Answer Date Recorded In the [...] declined 06/25/2024 How often do you attend religion or mosque serv ices? Patient declined 06/25/2024 Do you belong to any clubs o r organizations such as religion groups, unions, fraternal or athletic groups, or [...] Total Score - Questions 1-9 18 10/24 [employer] of Occupat ional Health - Occupational Stress [...] place to sleep or slept in a care home (including now)? Patient declined 11/28/2023 Housing Stability [...] any time in the past 12 m [facility], were you homeless or living in a care home (including now)? Patient unable to answer 06/25/2024 Education Answer Date Recorded What is the highest level of school you have completed or the highest degree you have received? 12th grade 04/03/2023 Sexually Active Control Partners Comments Not Currently Comments No Sex and Gender Information Value Date Recorded Sex Assigned at Female 11/22/2023 11:58 AM PRESCHOOL AIDE Legal Sex Female 11:34 PM CDT Gender Identity Female 11/22/2023 11:58 AM PRESCHOOL AIDE Sexual Orientation Not on file Occupation Industry Job Start Date Job End Date disabled Not on file Not on file Not on file documented as of this encounter Miscellaneous Notes * Telephone Encounter - Shaunjensen Aly - 12/01/2024 11:05 AM PRESCHOOL AIDE Symptoms: Abdominal Pain - Female - Not , Diarrhea, swollen in legs, difficulty walking Outcome: Warm transfer to an emergent RN NOW! Reason: Severe pain now The caller accepted this outcome. CHOOL AIDE documented in this encounter Plan of Treatment Upcoming Encounters Date Type Department Care Team (Late st Contact Info) Description 03/12/2025 8:00 AM CDT Office Visit [facility] - [place] #[facility] [place] [address] Marco Woods MD #2 [facility] [address] [place] [address] 05/11/2025 9:45 AM CDT [facility] [place] #2 [place] [address] Kirsten Niño MD #[address] [place] [address] 06/19/2025 10:00 AM CDT Office Visit [facility] - Pulmonology & Sleep Medicine - [place] #2 [place] [address] Michelle Mendes APRN, INCLUSION INTERNSHIP #2 [facility] [address] [place] [address] documented as of this encounter Visit Diagnoses Not on filedocumented in this encounter Additional Health Concerns Assessment Noted Time PHQ-9 Depression Total Score: 18 024 10:00 AM PRESCHOOL AIDE documented as of this encounter Care Teams Conference Service Coordinator Relationship Specialty Start Date End Date Marco Woods MD #2 [facility] [address] [place] [address] PCP - General Family Medicine 11/22/17 Kirsten Niño MD #2 [facility] [address] [place] [address] Consulting Physician Endocrinology 07/17/22 Chin Burrows MD #[address] [address] Consulting Physician General Surgery 11/22/22 Michelle Mendes APRN, INCLUSION INTERNSHIP #[address] [address] Nurse Practitioner Advanced Practice Nurse 08/14/22 Chantelle Nix APRN, INCLUSION INTERNSHIP #2 [place] [address] Nurse Practitioner Advanced Practice Nurse 02/19/24 documented as of this encounter
--- OUTSIDE RECORDS SUMMARY | 2025-02-06 10:08 | XMS_ITS | Encounter Summary ---
Author Organization [facility] Address [address] [place] [address] Phone Care Team Providers Care Choir Leader Name Role Phone Marco Woods MD Primary Care Provider [phone] Kirsten Niño MD Unavailable Chin Burrows MD Unavailable [phone] Kelsea Root RN Unavailable Unavailable Michelle Mendes APRN, ENVIRONMENTAL RESTORATION PLANNER Unavailable [phone] Chantelle Nix APRN, ENVIRONMENTAL RESTORATION PLANNER Unavailable Reason for Visit * Reason Comments Medication Refill Encounter Details Date Type Department Care Team (Late st Contact Info) Description 05/27/2023 Refill [facility] - Family Medicine - [place] [address] [place] [address] Mirtha Steiner APRN, ENVIRONMENTAL RESTORATION PLANNER #2 [facility] [place] [address] Medication Refill Social History Tobacco [...] Sex Assigned at Female 11/22/2023 11:58 AM CERTIFIED INDUSTRIAL HYGIENIST Legal Sex Female 11:34 PM CDT Gender Identity Female 11/22/2023 11:58 AM CERTIFIED INDUSTRIAL HYGIENIST Sexual Orientation Not on file Occupation Industry [...] 03/05/23 Office Visit Mir[facility] Steiner [facility] 02/07/23 Office Visit Marco Woods MD [facility] 01/23/23 Office Visit Rebecca Liu APRN, [facility] [place] 12/05/22 Office Visit Marco Woods MD [facility] 10/25/22 Office Visit Marco Woods MD [facility] 08/29/22 [facility] recent visits within past 365 days and meeting all other requirements Future Appointments Date Type Provider Dept 08/02/23 Appointment Marco Woods MD [facility] [place] 08/07/23 Appointment [facility] Show[facility] future appointments within next 90 days and meeting all other requirements documented in this encounter Plan of Treatment Upcoming Encounters Date Type Department Care Team (Late st Contact Info) Description 03/12/2025 8:00 AM CDT Office Visit [facility] Medical [facility] - Family Medicine - [place] #[address] [place] [address] Marco Woods MD #2 [facility] [address] [place] [address] 05/11/2025 9:45 AM CDT Office Visit [facility] - Endocrinology - [place] #2 [place] [address] Kirsten Niño MD #2 [facility] [address] [place] [address] 06/19/2025 10:00 AM CDT Office Visit [facility] - Pulmonology & Sleep Medicine - [place] #[address] [place] [address] Michelle Mendes APRN, ENVIRONMENTAL RESTORATION PLANNER #2 [facility] [address] [place] [address] documented as of this encounter Visit Diagnoses Diagnosis Anxiety Anxiety state, unspecified documented in this encounter Additional Health Concerns Infection Onset Date Last Indicated Resolved Time COVID - 19 06/01/2023 06/01/2023 06/01/2023 8:16 AM CDT COVID - 19 11/01/2023 11/01/2023 11/11/2023 12:1 6 AM CERTIFIED INDUSTRIAL HYGIENIST COVID - 19 06/25/2024 06/25/202406/2506/25/2024 6:36 PM CDT Assessment Noted Time PHQ-9 Depression Total Score: 0 11/22/19 10:00 AM CERTIFIED INDUSTRIAL HYGIENIST documented as of this encounter Care Teams Choir Leader Relationship Specialty Start Date End Date Marco Woods MD #2 [facility] [address] [place] [address] PCP - General Family Medicine 11/22/17 Kirsten Niño MD #2 [facility] [address] [place] [address] Consulting Physician Endocrinology 07/17/22 Chin Burrows MD #2 [facility] [address] [place] [address] Consulting Physician General Surgery 11/22/22 Kelsea Root, JUWAN [place] Instructional Developer 06/15/23 08/26/23 Michelle Mendes APRN, ENVIRONMENTAL RESTORATION PLANNER #2 [facility] [address] [place] [address] Nurse Practitioner Advanced Practice Nurse 08/14/22 Chantelle Nix APRN, ENVIRONMENTAL RESTORATION PLANNER #[address] [place] [address] Nurse Practitioner Advanced Practice Nurse 02/19/24 documented as of this encounter
--- OUTSIDE RECORDS SUMMARY | 2025-02-06 10:08 | XMS_ITS | Encounter Summary ---
Author Organization [facility] Address [address] [place] [address] Phone Care Team Providers Care Help Desk Associate Name Role Phone Marco Woods MD Primary Care Provider Kirsetn Niño MD Unavailable Chin Burrows MD Unavailable Kelsea Root RN Unavailable Unavailable Michelle Mendes APRN, ELEMENTARY INSTRUCTIONAL COACH Unavailable Chantelle Nix APRN, ELEMENTARY INSTRUCTIONAL COACH Unavailable Reason for Visit * Reason Comments Medication Refill Encounter Details Date Type Department Care Team (Late st Contact Info) Description [facility] [address] [place] [address] Mirtha Steiner APRN, ELEMENTARY INSTRUCTIONAL COACH #2 [facility] [place] [place] [address] Medication Refill Social History Tobacco Use Types Packs/Day Years Used Date Smoking Tobacco: Never Smokeless Tobacco: Former Alcohol Use Standard Drinks/Week Comments Not Currently 0 (1 standard drink = 0.6 oz pur e alcohol) Sexually Active Control Partners Comments Not Currently Comments No Sex and Gender Information Value Date Recorded Sex Assigned at Female 11/22/2023 11:58 AM CABLE TOWER OPERATOR Legal Sex Female 11:34 PM CDT Gender Identity Female 11/22/2023 11:58 AM CABLE TOWER OPERATOR Sexual Orientation Not on file Occupation Industry Job Start Date Job End Date disabled Not on file Not on file Not on file COVID-19 Exposure Response Date Recorded In the last month, have you been in contact with someone who was confirmed or suspected to have Coronavirus / COVID-19? No / Unsure 12/27/2020 8:52 AM CABLE TOWER OPERATOR documented as of this encounter Miscellaneous [...] Receipt confirmed by pharmacy (11/16/2020 10:27 AM CABLE TOWER OPERATOR) amLODIPine (NORVASC) 5 MG Tablet [[id number]] 1027 Status: Active Ordering user: Marco Woods MD 11/16/20 1027 Authorized by: Marco Woods MD Frequency: Daily 11/16/20 - Until Discontinued Released by: Marco Woods MD 11/16/20 1027 Pharmacy [facility] #[id number] E TOWER OPERATOR documented in this encounter Plan of Treatment Upcoming Encounters Date Type Department Care Team (Late st Contact Info) Description 03/12/2025 8:00 AM CDT Office Visit [facility] - Family Medicine - [place] #[address] [place] [address] Marco Woods MD #[address] [facility] [address] [address] 05/11/2025 9:45 AM CDT [facility] - [facility] - [place] #[address] [place] [address] Kirsten Niño MD #2 [facility] [address] [place] [address] 06/19/2025 10:00 AM CDT [facility] #2 [place] [address] Michelle Mendes APRN, ELEMENTARY INSTRUCTIONAL COACH #2 [facility] [address] [place] [address] documented as of this encounter Visit Diagnoses Not on filedocumented in this encounter Additional Health Concerns Infection Onset Date Last Indicated Resolved Time COVID - 19 06/29/2022 06/29/2022 07/09/2022 12:1 6 AM CDT COVID - 19 11/20/2022 11/20/2022 11/24/2022 8:51 AM CABLE TOWER OPERATOR COVID - 19 12/31/2022 12/31/2022 01/10/2023 12:1 8 AM CDT COVID - 19 Confirmed 12/31/2022 12/31/2022 023 12:17 AM CDT COVID - 19 06/01/2023 06/01/2023 06/01/2023 8:16 AM CDT COVID - 19 11/01/2023 11/01/2023 11/11/2023 12:1 6 AM CABLE TOWER OPERATOR COVID - 19 06/25/2024 06/25/2024 06/25/2024 6:36 PM CDT Assessment Noted Time PHQ-9 Depression Total Score: 0 11/22/19 10:00 AM CABLE TOWER OPERATOR documented as of this encounter Care Teams Help Desk Associate Relationship Specialty Start Date End Date Marco Woods MD #2 [facility] [address] [place] [address] PCP - General Family Medicine 11/22/17 Kirsten Niño MD #2 [facility] [address] [place] [address] Consulting Physician Endocrinology 07/17/22 Chin Burrows MD #2 [facility] [address] [place] [address] Consulting Physician General Surgery 11/22/22 Kelsea Root, JUWAN [place] Manager Sap 06/15/23 08/26/23 Michelle Mendes APRN, ELEMENTARY INSTRUCTIONAL COACH #[facility] [address] [place] [address] Nurse Practitioner Advanced Practice Nurse 08/14/22 Chantelle Nix APRN, ELEMENTARY INSTRUCTIONAL COACH #2 [place] [address] Nurse Practitioner Advanced Practice Nurse 02/19/24 documented as of this encounter
--- OUTSIDE RECORDS SUMMARY | 2025-02-06 10:08 | XMS_ITS | Data Portability ---
Author Organization [facility] Address [address] [place] [address] Assessment Encounter Date Assessment Date Assessment LastModified by Organization Details LastModified Time 04/01/2015 04/01/2015 URI sxs appear to be viral--pt is to let us know if sxs worsen. [email or web address] Not available 04/01/2015 12:45:52 02/26/2017 02/26/2017 Stop symbicort. Pt sees an ENT and a quality improvement coordinator. [email or web address] Not available 02/26/2017 12:21:36 Plan of Treatment Reminders Order Date Submit Date Provider Last Modified By Organization Details Last Modified Time Details Appointments None recorded. Lab None recorded. Referral None recorded. Procedures None recorded. Surgeries None recorded. Imaging None recorded. Medication Orders ProAir HFA 90 mcg/actuat ion aerosol inhaler 2016 017 INTERFACE [facility] #[id number], [address] [place], [place], [id number], 7 12:20:23 cyclobenza ilia 10 mg tablet 2015 016 [email or web address] [email or web address] [id number], [address] [place], [place], [id number], 7 12:01:57 Voltaren 1 % topical gel 2015 016 INTERFACE [facility], [address] [place], [place], [id number], 6 15:58:06 Qvar 40 mcg/actuat ion Metered Aerosol oral inhaler 2014 015 pcunningha m7 [facility], [address] [place], [place], [id number], 7 12:02:24 montelukas t 10 mg tablet 2014 015 [email or web address] [facility], [address] [place], [place], [id number], 5 17:54:35 Flovent HFA 220 mcg/actuat ion aerosol inhaler 2014 015 [email or web address] [facility], [address] [place], [place], [id number], 7 10:05:57 Patient TargetsNo targets recorded. Patient Instructions Encounter Date Encounter Id Patient Instructions Last Modified By Organization Details Last Modified Time 04/01/2015 [id number] When You Want to Lose Weight: Care Instructions [email or web address] Not available 04/07/2015 16:40:13 hypothyroidism: care instructions [email or web address] Not available 04/07/2015 16:40:13 10/01/2015 [id number] controlling your asthma: care instructions [email or web address] Not available 10/04/2015 09:15:49 learning about asthma [email or web address] Not available 10/04/2015 09:15:49 allergies: care instructions [email or web address] Not available 10/01/2015 17:54:35 managing your allergies: care instructions [email or web address] Not available 10/01/2015 17:54:35 When You Want to Lose Weight: Care Instructions Not available 10/01/2015 17:54:35 hypothyroidism: care instructions [email or web address] Not available 10/01/2015 17:54:35 shortness of breath: care instructions [email or web address] Not available 10/01/2015 17:54:35 03/31/2016 [id number] When You Want to Lose Weight: Care Instructions Not available 03/31/2016 16:03:45 hypothyroidism: care instructions Not available 03/31/2016 16:03:45 02/26/2017 [id number] controlling your asthma: care instructions Not available [...] t No observ ation record ed. [facility] ([facility] [address] [place], [address], 02/05/2015 13:56:27 03/12/20 15 imagi ng/di agnos tic resul t No observ ation record ed. [email or web address] Not Available 2014 15:37:15 01/10/20 16 01/10/2016 imagi ng/di agnos tic resul t No observ ation record ed. [email or web address] [facility] [address] [place], [address], 01/11/2016 00:46:44 02/01/20 17 01/31/2017 CT, abdom en + pelvi s, w/ contr ast No observ ation record ed. Not Available 2016 09:39:13 02/14/20 17 02/13/2017 MAMMO , diagn ostic , bilat eral, w/ CAD No observ ation record ed. [facility] [address] [place], [address], 02/14/2017 15:32:05 Result Notes None recorded. Problems Name Problem SNOMED Code Status Onset Date Resolution Date Notes Provider Name and Address Organization Details Recorded Time Arthritis 5119029 Active Anmol Stafford MD Attn: Accountin g,[address] [facility], [place], [address], [facility] 5 16:29:02 Anemia 856001519 Active Anmol Stafford MD Attn: Accountin g,[address] [facility], [place], [address], [place] [facility] 5 23:14:44 Morbid obesity 365942981 Active Anmol Stafford MD Attn: Accountin g,[address] [facility], [place], [address], [place] [facility] 6 15:57:59 Hypothyroidism 01128644 Active Anmol Stafford MD Attn: Accountin g,[address] [facility], [place], [address], [place] [facility] 6 15:57:59 Allergic rhinitis 97886485 Active Anmol Stafford MD Attn: Accountin g,[address] [facility], [place], [address], [place] [facility] 5 17:54:34 Asthma 666326590 Active Anmol Stafford MD Attn: Accountin g,[address] [facility], [place], [address], [place] [facility] 5 17:54:34 Dyspnea 879722550 Active Anmol Stafford MD Attn: Accountin g,[address] [facility], [place], [address], [place] [facility] 5 13:11:38 Problem Notes None recorded. Procedures Surgical History None recorded. Imaging Results Imaging Date Name Status LastModified by [facility] Details LastModified Time 02/05/2015 imaging/diagn ostic result completed [email or web address] [facility] ([facility]) Scheduling [address] [place], [address], 02/05/2015 13:56:27 03/12/2015 imaging/diagn ostic result completed [email or web address] Information not available 03/12/2015 15:37:15 01/10/2016 imaging/diagn ostic result completed [email or web address] [facility] [address] [place], [address], 01/11/2016 00:46:44 01/31/2017 CT, abdomen + pelvis, w/ contrast completed Information not available 02/01/2017 09:39:13 02/13/2017 MAMMO, diagnostic, bilateral, w/ CAD completed [facility] [address] [place], [address], 02/14/2017 15:32:05 Procedure Notes None recorded. Medical [...] Not available Not available Not available 10/06/2014 [id number] SNOMED Not Available Not Available Not [...] 5 24 /min 97 % 97 % 015135. 032046 g 98.9 [degF] 84 /min 42.7 kg/m2 154.94 cm 102 mm[Hg] 60 mm[Hg] Lesa Rojo RN [facility] 5 10:21:25 Date Recorded Respiratory rate Body weight Oxygen saturation Oxygen saturation in Arterial blood by Pulse oximetry Body height Heart rate Body mass index (BMI) Systolic blood pressure Diastolic blood pressure Provider Name and Address Organization Details Last Updated DateTime 5 24 /min 396226. 711043 g 95 % 95 % 154.94 cm 103 /min 43.7 kg/m2 144 mm[Hg] 82 mm[Hg] Azalea Mcconnell MA [facility] 5 10:46:58 Date Recorded Respiratory rate Body weight Oxygen saturation Oxygen saturation in Arterial blood by Pulse oximetry Body height Heart rate Body mass index (BMI) Systolic blood pressure Diastolic blood pressure Provider Name and Address Organization Details Last Updated DateTime 5 24 /min 671088. 080829 g 95 % 95 % 154.94 cm 87 /min 43.6 kg/m2 114 mm[Hg] 76 mm[Hg] Azalea Mcconnell MA [facility] 5 15:29:26 Date Recorded Respiratory rate Body height Body mass index (BMI) Heart rate Body weight Systolic blood pressure Diastolic blood pressure Provider Name and Address Organization Details Last Updated DateTime 6 16 /min 154.94 cm 43.6 kg/m2 82 /min 344231. 869425 g 152 mm[Hg] 82 mm[Hg] Ana M gayle [facility] 6 15:30:51 Date Recorded Body height Body weight Body mass index (BMI) Oxygen saturation Oxygen saturation in Arterial blood by Pulse oximetry Heart rate Respiratory rate Body temperature Systolic blood pressure Diastolic blood pressure Provider Name and Address Organization Details Last Updated DateTime 05/08/201 7 154.94 cm 563937. 61 g 44.2 kg/m2 95 % 95 % 72 /min 18 /min 98.2 [degF] 128 mm[Hg] 84 mm[Hg] Ana M agyle [facility] 7 12:00:46 Social History None recorded. Functional Status None recorded. Mental Status None recorded. Family History Nothing Reported. Medical History Condition Response Thyroid Problems Y Asthma Y Gynecological HistoryNo gynecological history recorded. Obstetrics History GPAL:G 0 P 0 0 0 0 Immunizations Vaccine Type Date Status Note Provider Nam e and Address Organization Details Recorded Time Hep A-Hep B 5 completed Not Available [facility] 11/08/2019 02:32:57 tetanus toxoid, unspecified formulation 4 completed BEKAH Nicole, [facility] 10/16/2017 17:59:15 pneumococcal, unspecified formulation 9 completed BEKAH Nicole, [facility] 10/16/2017 17:59:31 Past Encounters Encounter ID Performer Location Encounter Start Date Encounter Closed Date Diagnosis/Indication Diagnosis SNOMED-CT Code Diagnosis ICD10 Code Diagnosis Note [id number] Anmol Stafford MD [place] [address] [place] [address] 10/06/2014 11:37:33 10/06/2014 13:05:59 Dyspnea 315780090 [id number] MD Julian Choudhury [place] [address] [place] [address] 11/04/2014 10:00:37 11/04/2014 13:09:05 Dyspnea 122036730 [id number] Lissy Litzy [facility] [address] [place] [address] 03/04/2015 09:42:41 03/04/2015 15:14:58 Active or passive immunization 898116941 [id number] Azalea Mcconnell MA [facility] [address] [place] [address] 04/01/2015 10:26:56 04/01/2015 13:40:36 Arthritis 0640496 Hypothyroidism 91135862 Morbid obesity 105018577 [id number] MD Julian Choudhury [place] [address] [place] [address] 10/01/2015 15:07:02 10/01/2015 17:58:34 Dyspnea 140615991 R06.00 Allergic rhinitis 752086 04 J30.9 Hypothyroidism 68926390 E03.9 Morbid obesity 448170552 E66.01 Asthma 767237965 J45.90 [id number] MD Julian Choudhury [facility] [address] [place] [address] 03/31/2016 15:18:57 03/31/2016 16:41:34 Hypothyroidism 57914188 E03.9 Morbid obesity 978771559 E66.01 History of fall 59855345 9 Z91.81 [id number] MD Julian Choudhury [facility] [address] [place] [address] 02/26/2017 11:53:16 02/28/2017 09:40:12 Asthma 763877152 J45.909 Morbid obesity 779818716 E66.01 Hypothyroidism 72505374 E03.9 Health Concerns Section Related Observation LastModified by Organization Detai ls LastModified Time None Recorded Concern Status LastModified by Organization Details LastModified Time None Recorded Advance Directives Directive None Recorded Payers Encounter Date Sequence Insurance Name Policy Number Policy Elizabeth Covered Member ID Elizabeth Member ID Guarantor Name 03/04/2015 1 [place] Yudi Henderson [id number] Yudi Henderson 04/01/2015 1 [place] [id number] Yudi Henderson 10/01/2015 1 [place] [id number] Yudi Henderson 03/31/[address] [facility] (MEDICARE REPLACEMENT/AD VANTAGE - HMO) [id number] Yudi Henderson [id number] Yudi Henderson 03/31/2016 2 [place] WHEN [place]ARE OR [place]ICARE REPLACEMENT PRIMARY) Yudi Henderson [id number] Yudi Henderson 02/26/[address] [facility] (MEDICARE REPLACEMENT/AD VANTAGE - HMO) [id number] Yudi Henderson [id number] Yudi Henderson 02/26/2017 2 [place] OR [place]PLACEMENT [place]IMARY) Yudi Henderson [id number] Yudi Henderson Notes Date Note Type Note Provider Name and Address Organization Details Recorded Time 04/01/2015 text/html Patient presents for a regular checkup--she describes sxs of an URI since this morning but no production of sputum. Anmol Stafford MD Attn: Accounting,[address] [facility], [place], [address], [facility] 04/07/2015 16:29:25 10/01/2015 text/html Pt is dyspneic--no longer seen by a it software engineer. She states that she does much better on Qvar than the Flonase. Anmol Stafford MD Attn: Accounting,[address] [facility], [place], [address], [facility] 10/01/2015 17:55:03 03/31/2016 text/html Pt fell on March 27, 2016 at home. She is somewhat better now four days later. Anmol Stafford MD Attn: Accounting,[address] [facility], [place], [address], [facility] 03/31/2016 16:44:28 02/26/2017 text/html Pt is now better but states that she suffered from an asthma attack for one week. Anmol Stafford MD Attn: Accounting,[address] [facility], [place], [address], [facility] 02/28/2017 00:32:09 OBGyn Episode No OBEpisode recorded.
--- OUTSIDE RECORDS SUMMARY | 2025-02-06 10:08 | XMS_ITS | Encounter Summary ---
Author Organization [facility] Address [address] [place] [address] Phone Care Team Providers Care Real Estate Professional Name Role Phone Marco Woods MD Primary Care Provider Kirsten Niño MD Unavailable Chin Burrows MD Unavailable [phone] Kelsea Root RN Unavailable Unavailable Michelle Mendes APRN, CLOTHING SALES ASSISTANT Unavailable Chantelle Nix APRN, CLOTHING SALES ASSISTANT Unavailable Reason for Visit * Reason Comments Medication Refill Encounter Details Date Type Department Care Team (Late st Contact Info) Description 10/16/[address] [facility] Medical Group - Family Medicine [facility] [address] [place] [id number] Marco Woods MD [address] [address] Medication Refill Social History Tobacco Use Types Packs/Day Years Used Date Smoking Tobacco: Never Smokeless Tobacco: Never Alcohol Use Standard Drinks/Week Comments Not Currently 0 (1 standard drink = 0.6 oz pur e alcohol) Sexually Active Control Partners Comments Not Currently Comments No Sex and Gender Information Value Date Recorded Sex Assigned at Female 11/22/2023 11:58 AM TANYARD WORKER Legal Sex Female 11:34 PM CDT Gender Identity Female 11/22/2023 11:58 AM TANYARD WORKER Sexual Orientation Not on file Occupation Industry Job Start Date Job End Date disabled Not on file Not on file Not on file COVID-19 Exposure Response Date Recorded In the last 10 days, have yo u been in contact with someone who was confirmed or suspected to have Coronavirus/COVID-19? No / Unsure 10/11/2022 9:23 AM TANYARD WORKER documented as of this encounter Miscellaneous Notes [...] Dept 08/29/22 Office Visit Ronald Shaffer APRN, CLOTHING SALES ASSISTANT [facility] 07/12/22 Office Visit Jany Hernandez PAC [facility] 06/23/22 Office Visit Marco Woods MD [facility] 05/19/22 Office Visit Marco Woods MD [facility] 01/10/22 Office Visit Marco Woods MD [facility] Showing recent visits within past 365 days and meeting all other requirements Future Appointments Date Type Provider Dept 10/25/22 Appointment Marco Woods MD [facility] Showing future appointments within next 90 days and meeting all other requirements ARD WORKER documented in this encounter Plan of Treatment Upcoming Encounters Date Type Department Care Team (Late st Contact Info) Description 03/12/2025 8:00 AM CDT Office Visit [facility] Medical Group - Family Medicine - [place] [address] [place] [address] Marco Woods MD [address]2 [facility] [address] [place] [address] 05/11/2025 9:45 AM CDT Office Visit [facility] Medical [facility] - Endocrinology - [place] [address] [place] [address] Kirsten Niño MD #2 [facility] [address] [place] [address] 06/19/2025 10:00 AM CDT Office Visit [facility] - Pulmonology & Sleep Medicine - [place] [address] [place] [address] Michelle Mendes APRN, [facility] #[address] [facility] [address] [place] [address] documented as of this encounter Visit Diagnoses Not on filedocumented in this encounter Additional Health Concerns Infection Onset Date Last Indicated Resolved Time COVID - 19 11/20/2022 11/20/2022 11/24/2022 8:51 AM TANYARD WORKER COVID - 19 12/31/2022 12/31/2022 01/10/2023 12:1 8 AM CDT COVID - 19 Confirmed 12/31/2022 12/31/2022 023 12:17 AM CDT COVID - 19 06/01/2023 06/01/2023 06/01/2023 8:16 AM CDT COVID - 19 11/01/2023 11/01/2023 11/11/2023 12:1 6 AM TANYARD WORKER COVID - 19 06/25/2024 06/25/2024 06/25/2024 6:36 PM CDT Assessment Noted Time PHQ-9 Depression Total Score: 0 11/22/19 18 10:00 AM TANYARD WORKER documented as of this encounter Care Teams Real Estate Professional Relationship Specialty Start Date End Date Marco Woods MD [address] [facility] [address] [place] [address] PCP - General Family Medicine 11/22/17 Kirsten Niño MD [address] [facility] [address] [place] [address] Consulting Physician Endocrinology 07/17/22 Chin Burrows MD #[address] [facility] [address] [place] [address] Consulting Physician General Surgery 11/22/22 Kelsea Root RN [place] [employer] 06/15/23 08/26/23 Michelle Mendes APRN, CLOTHING SALES ASSISTANT #[address] [facility] [address] [place] [address] Nurse Practitioner Advanced Practice Nurse 08/14/22 Chantelle Nix APRN, CLOTHING SALES ASSISTANT [address] [place] [address] Nurse Practitioner Advanced Practice Nurse 02/19/24 documented as of this encounter
--- OUTSIDE RECORDS SUMMARY | 2025-02-06 10:08 | XMS_ITS | Encounter Summary ---
Author Organization [facility] Address [address] [place] [address] Phone Care Team Providers Care Traffic Assistant Name Role Phone Marco Woods MD Primary Care Provider Kirsten Niño MD Unavailable Chin Burrows MD Unavailable Michelle Mendes APRN, ACID REMOVER Unavailable [phone] Chantelle Nix APRN, ACID REMOVER Unavailable Reason for Visit * Reason Comments Medication Refill Encounter Details Date Type Department Care Team (Late st Contact Info) Description 07/07/2024 Refill [facility] Medical Group - Gastroenterology - [place] [address] [place] [address] Chantelle Nix APRN, ACID REMOVER [address] [place] [address] Medication Refill Social History Tobacco Use Types Packs/Day Years Used Date Smoking Tobacco: Never Smokeless Tobacco: Never Alcohol Use Standard Drinks/Week Comments Not Currently 0 (1 standard drink = 0.6 oz pur e alcohol) [facility] Utilities Answer Date Recorded In the [...] How often do you attend jewish or zoroastrian serv ices? Patient declined 06/25/2024 Do you [...] Total Score - Questions 1-9 18 10/24 [facility] Occupat [facility] - Occupational Stress Questionnaire Answer Date Recorded [...] any time in the past 12 m [facility], were you homeless or living [...] Sex Assigned at Female 11/22/2023 11:58 AM ELECTRICIAN MASTER Legal Sex Female 11:34 PM CDT Gender Identity Female 11/22/2023 11:58 AM ELECTRICIAN MASTER Sexual Orientation Not on file Occupation Industry [...] 8:00 AM CDT Office Visit [facility] - Family Medicine - [place] #[address] [place] [address] Marco Woods MD #2 [facility] [address] [place] [address] 05/11/2025 9:45 AM CDT [facility] [place] [facility]2 [facility] [place] [address] Kirsten Niño MD #[address] [place] [address] 06/19/2025 10:00 AM CDT Office Visit [facility] - Pulmonology & Sleep Medicine [facility] #[address] [facility] [place] [address] Michelle Mendes APRN, ACID REMOVER [address]2 [facility] [address] [place] [address] documented as of this encounter Visit Diagnoses Diagnosis Chronic constipation Unspecified constipation documented in this encounter Additional Health Concerns Assessment Noted Time PHQ-9 Depression Total Score: 18 024 10:00 AM ELECTRICIAN MASTER documented as of this encounter Care Teams Traffic Assistant Relationship Specialty Start Date End Date Marco Woods MD [address]2 [facility] [address] [place] [address] PCP - General Family Medicine 11/22/17 Kirsten Niño MD #2 [facility] [address] [place] [address] Consulting Physician Endocrinology 07/17/22 Chin Burrows MD [address] [place] [address] [address] Consulting Physician General Surgery 11/22/22 Michelle Mendes APRN, ACID REMOVER #[address] [address] Nurse Practitioner Advanced Practice Nurse 08/14/22 Chantelle Nix APRN, ACID REMOVER [address] [place] [address] Nurse Practitioner Advanced Practice Nurse 02/19/24 documented as of this encounter
--- OUTSIDE RECORDS SUMMARY | 2025-02-06 10:08 | XMS_ITS | Encounter Summary ---
Author Organization [facility] Address [address] [place] [address] Phone Care Team Providers Care Lead Bi Developer Name Role Phone Marco Woods MD Primary Care Provider Kirsten Niño MD Unavailable Chin Burrows MD Unavailable Kelsea Root RN Unavailable Unavailable Michelle Mendes APRN, PLANER OPERATOR / GRADER Unavailable Chantelle Nix APRN, PLANER OPERATOR / GRADER Unavailable Reason for Visit * Reason Comments Medication Refill Encounter Details Date Type Department Care Team (Late st Contact Info) Description 02/11/2023 Refill [facility] Medical Group - Family Medicine [facility] #2 [place] [phone] Marco Woods MD [address] [address] Medication Refill Social History Tobacco Use Types Packs/Day Years Used Date Smoking Tobacco: Never Smokeless Tobacco: Never Alcohol Use Standard Drinks/Week Comments Not Currently 0 (1 standard drink = 0.6 oz pur e alcohol) Sexually Active Control Partners Comments Not Currently Comments No Sex and Gender Information Value Date Recorded Sex Assigned at Female 11/22/2023 11:58 AM BALLAST REGULATOR OPERATOR Legal Sex Female 11:34 PM CDT Gender Identity Female 11/22/2023 11:58 AM BALLAST REGULATOR OPERATOR Sexual Orientation Not on file Occupation [...] [place] 01/23/23 Office Visit Rebecca Liu APRN, PLANER OPERATOR / GRADER [facility] [place] 12/05/22 Office Visit Marco Woods MD [facility] [place] 10/25/22 Office Visit Marco Woods MD [facility] [place] 08/29/22 Office Visit Ronald Shaffer APRN, [facility] [place] 07/12/22 Office Visit Jany Hernandez PAC [facility] [place] 06/23/22 Office Visit Marco Woods MD [facility] [place] 05/19/22 Office Visit Marco Woods MD [facility] [place] Showing recent visits within past [...] Description 03/12/2025 8:00 AM CDT Office Visit [facility] Family Medicine - [place] #2 [facility] [address] Marco Woods MD #2 [facility] [address] [place] [address] 05/11/2025 9:45 AM CDT Office Visit [facility] Endocrinology - [place] #2 [facility] [place] [phone] Kirsten Niño MD #2 [facility] [address] [place] [address] 06/19/2025 10:00 AM CDT Office Visit [facility] - Pulmonology & Sleep Medicine - [place] #2 [facility] [place] [address] Michelle Mendes APRN, PLANER OPERATOR / GRADER #2 [facility] [address] [place] [address] documented as of this encounter Visit Diagnoses Not on filedocumented in this encounter Additional Health Concerns Infection Onset Date Last Indicated Resolved Time COVID - 19 06/01/2023 06/01/2023 06/01/2023 8:16 AM CDT COVID - 19 11/01/2023 11/01/2023 11/11/2023 12:1 6 AM BALLAST REGULATOR OPERATOR COVID - 19 06/25/2024 06/25/2024 06/25/2024 6:36 PM CDT Assessment Noted Time PHQ-9 Depression Total Score: 0 11/22/19 18 10:00 AM BALLAST REGULATOR OPERATOR documented as of this encounter Care Teams Lead Bi Developer Relationship Specialty Start Date End Date Marco Woods MD #2 [facility] [address] [place] [address] PCP - General Family Medicine 11/22/17 Kirsten Niño MD #2 [facility] [address] [place] [phone] Consulting Physician Endocrinology 07/17/22 Chin Burrows MD #[address] [phone] Consulting Physician General Surgery 11/22/22 Kelsea Root RN [place] Bone Char Operator 06/15/23 08/26/23 Michelle Mendes APRN, PLANER OPERATOR / GRADER #[facility] [address] [place] [address] Nurse Practitioner Advanced Practice Nurse 08/14/22 Chantelle Nix APRN, PLANER OPERATOR / GRADER #2 [place] [address] Nurse Practitioner Advanced Practice Nurse 02/19/24 documented as of this encounter
--- OUTSIDE RECORDS SUMMARY | 2025-02-06 10:08 | XMS_ITS | Encounter Summary ---
Author Organization [facility] Address [address] [place] [address] Phone Care Team Providers Care Trombone Slide Assembler Name Role Phone Marco Woods MD Primary Care Provider [phone] Kirsten Niño MD Unavailable Chin Burrows MD Unavailable [phone] Michelle Mendes APRN, RN ANESTHETIST Unavailable Chantelle Nix APRN, RN ANESTHETIST Unavailable Encounter Details Date Type Department Care Team (Late st Contact Info) Description 02/12/2024 Telephone [facility] [address] [place] [phone] Marco Woods MD #2 [facility] [place] [address] Social History Tobacco Use Types Packs/Day Years Used Date Smoking Tobacco: Never Smokeless Tobacco: Never Alcohol Use Standard Drinks/Week Comments Not Currently 0 (1 standard drink = 0.6 oz pur e alcohol) [facility] Utilities Answer Date Recorded In the [...] declined 11/28/2023 How often do you attend episcopalian or sabianism serv ices? Patient declined 11/28/2023 Do you belong to any clubs o r organizations such as episcopalian groups, unions, fraternal or athletic groups, or [...] Total Score - Questions 1-9 18 10/24 [facility] - Occupational [...] care home (including now)? Patient declined 11/28/2023 Education Answer Date Recorded What is the highest level of school you have completed or the highest degree you have received? 12th grade 04/03/2023 Sexually Active Control Partners Comments Not Currently Comments No Sex and Gender Information Value Date Recorded Sex Assigned at Female 11/22/2023 11:58 AM ASSISTANT CORPORATE CONTROLLER Legal Sex Female 11:34 PM CDT Gender Identity Female 11/22/2023 11:58 AM ASSISTANT CORPORATE CONTROLLER Sexual Orientation Not on file Occupation Industry Job Start Date Job End Date disabled Not on file Not on file Not on file documented as of this encounter Plan of Treatment Upcoming Encounters Date Type Department Care Team (Late st Contact Info) Description 03/12/2025 8:00 AM CDT Office Visit [facility] Medical [facility] - Family Medicine [facility] #2 [place] [address] Marco Woods MD #2 [facility] [address] [place] [address] 05/11/2025 9:45 AM CDT Office Visit [facility] - Endocrinology [facility] #2 [place] [address] Kirsten Niño MD #2 [facility] [address] [place] [address] 06/19/2025 10:00 AM CDT Office Visit [facility] - Pulmonology & Sleep Medicine [facility] #2 [place] [address] Michelle Mendes APRN, RN ANESTHETIST #2 [facility] [address] [place] [address] documented as of this encounter Visit Diagnoses Not on filedocumented in this encounter Additional Health Concerns Infection Onset Date Last Indicated Resolved Time COVID - 19 06/25/2024 06/25/2024 06/25/2024 6:36 PM CDT Assessment Noted Time PHQ-9 Depression Total Score: 18 024 10:00 AM ASSISTANT CORPORATE CONTROLLER documented as of this encounter Care Teams Trombone Slide Assembler Relationship Specialty Start Date End Date Marco Woods MD #2 [facility] [address] [place] [address] PCP - General Family Medicine 11/22/17 Kirsten Niño MD #2 [facility] [address] [place] [phone] Consulting Physician Endocrinology 07/17/22 Chin Burrows MD #2 [facility] [address] [place] [address] Consulting Physician General Surgery 11/22/22 Michelle Mendes APRN, DREW #2 [facility] [address] [place] [address] Nurse Practitioner Advanced Practice Nurse 08/14/22 Chantelle Nix APRN, RN ANESTHETIST #2 [place] [address] Nurse Practitioner Advanced Practice Nurse 02/19/24 documented as of this encounter
--- OUTSIDE RECORDS SUMMARY | 2025-02-06 10:08 | XMS_ITS | Encounter Summary ---
Author Organization [facility] Address [address] [place] [address] Phone Care Team Providers Care Transformer Mechanic Name Role Phone Marco Woods MD Primary Care Provider Kirsten Niño MD Unavailable Chin Burrows MD Unavailable Kelsea Root RN Unavailable Unavailable Michelle Mendes APRN, POWER SWITCHBOARD OPERATOR Unavailable Chantelle Nix APRN, POWER SWITCHBOARD OPERATOR Unavailable Reason for Visit * Reason Comments Medication Refill Encounter Details Date Type Department Care Team (Late st Contact Info) Description [facility] [address] [place] [address] Marco Woods MD #2 [facility] [place] [address] Medication Refill Social History Tobacco Use Types Packs/Day Years Used Date Smoking Tobacco: Never Smokeless Tobacco: Former Alcohol Use Standard Drinks/Week Comments Not Currently 0 (1 standard drink = 0.6 oz pur e alcohol) Sexually Active Control Partners Comments Not Currently Comments No Sex and Gender Information Value Date Recorded Sex Assigned at Female 11/22/2023 11:58 AM ARTIST MODEL Legal Sex Female 11:34 PM CDT Gender Identity Female 11/22/2023 11:58 AM ARTIST MODEL Sexual Orientation Not on file Occupation Industry [...] [place] 12/21/20 Telemedicine Mirtha Steiner APN, DREW [facility] [place] 11/09/20 Office Visit Marco Woods MD [facility] [place] 09/06/20 Office Visit [facility] [place] Showing recent visits within past 365 days and meeting all other requirements Future Appointments Date Type Provider Dept 06/28/21 Appointment Marco Woods MD [facility] [place] Showing future appointments within next 90 days and meeting all other requirements documented in this encounter Plan of Treatment Upcoming Encounters Date Type Department Care Team (Late st Contact Info) Description 03/12/2025 8:00 AM CDT Office Visit [facility] Medical Group - Family Medicine - [place] #2 [place] [address] Marco Woods MD #2 [facility] [address] [place] [address] 05/11/2025 9:45 AM CDT Office Visit [facility] Medical [facility] - Endocrinology - [place] #2 [place] [address] Kirsten Niño MD #2 [facility] [address] [place] [address] 06/19/2025 10:00 AM CDT Office Visit [facility] - Pulmonology & Sleep Medicine - [place] #2 [place] [address] Michelle Mendes APRN, POWER SWITCHBOARD OPERATOR #2 [facility] [address] [place] [address] documented as of this encounter Visit Diagnoses Not on filedocumented in this encounter Additional Health Concerns Infection Onset Date Last Indicated Resolved Time COVID - 19 06/29/2022 06/29/2022 07/09/2022 12:1 6 AM CDT COVID - 19 11/20/2022 11/20/2022 11/24/2022 8:51 AM ARTIST MODEL COVID - 19 12/31/2022 12/31/2022 01/10/2023 12:1 8 AM CDT COVID - 19 Confirmed 12/31/2022 12/31/2022 023 12:17 AM CDT COVID - 19 06/01/2023 06/01/2023 06/01/2023 8:16 AM CDT COVID - 19 11/01/2023 11/01/2023 11/11/2023 12:1 6 AM ARTIST MODEL COVID - 19 06/25/2024 06/25/2024 06/25/2024 6:36 PM CDT Assessment Noted Time PHQ-9 Depression Total Score: 0 11/22/19 10:00 AM ARTIST MODEL documented as of this encounter Care Teams Transformer Mechanic Relationship Specialty Start Date End Date Marco Woods MD #2 [facility] [address] [place] [address] PCP - General Family Medicine 11/22/17 Kirsten Niño MD #2 [facility] [address] [place] [address] Consulting Physician Endocrinology 07/17/22 Chin Burrows MD #2 [facility] [address] [place] [address] Consulting Physician General Surgery 11/22/22 Kelsea Root RN [place] Watch Parts Grinder 06/15/23 08/26/23 Michelle Mendes APRN, POWER SWITCHBOARD OPERATOR #2 [facility] [address] [place] [address] Nurse Practitioner Advanced Practice Nurse 08/14/22 Chantelle Nix APRN, POWER SWITCHBOARD OPERATOR #2 [place] [address] Nurse Practitioner Advanced Practice Nurse 02/19/24 documented as of this encounter
--- OUTSIDE RECORDS SUMMARY | 2025-02-06 10:08 | XMS_ITS | Encounter Summary ---
Author Organization [facility] Address [address] [place] [address] Phone Care Team Providers Care Traveling Secretary Name Role Phone Marco Woods MD Primary Care Provider [phone] Kirsten Niño MD Unavailable Chin Burrows MD Unavailable [phone] Kelsea Root RN Unavailable Unavailable Michelle Mendes APRN, RECEIVER Unavailable Chantelle Nix APRN, RECEIVER Unavailable Reason for Visit * Reason Comments Medication Refill Encounter Details Date Type Department Care Team (Late st Contact Info) Description 04/23/2021 Refill [facility] - Gastroenterology - [place] #[address] [place] [phone] Dani Garrett, DO [address] [address] Medication Refill Social History Tobacco Use Types Packs/Day Years Used Date Smoking Tobacco: Never Smokeless Tobacco: Former Alcohol Use Standard Drinks/Week Comments Not Currently 0 (1 standard drink = 0.6 oz pur e alcohol) Sexually Active Control Partners Comments Not Currently Comments No Sex and Gender Information Value Date Recorded Sex Assigned at Female 11/22/2023 11:58 AM AWS SOFTWARE DEVELOPMENT ENGINEER Legal Sex Female 11:34 PM CDT Gender Identity Female 11/22/2023 11:58 AM AWS SOFTWARE DEVELOPMENT ENGINEER Sexual Orientation Not on file Occupation [...] [facility] - Family Medicine - [place] #2 [place] [address] Marco Woods MD #2 [facility] [address] [place] [address] 05/11/2025 9:45 AM CDT Office Visit [facility] Medical [facility] - Endocrinology - [place] #2 [place] [address] Kirsten Niño MD #2 [facility] [address] [place] [address] 06/19/2025 10:00 AM CDT Office Visit [facility] Medical Group - Pulmonology & Sleep Medicine - [place] #2 [place] [address] Michelle Mendes APRN, DREW #2 [facility] [address] [place] [address] documented as of this encounter Visit Diagnoses Not on filedocumented in this encounter Additional Health Concerns Infection Onset Date Last Indicated Resolved Time COVID - 19 06/29/2022 06/29/2022 07/09/2022 12:1 6 AM CDT COVID - 19 11/20/2022 11/20/2022 11/24/2022 8:51 AM AWS SOFTWARE DEVELOPMENT ENGINEER COVID - 19 12/31/2022 12/31/2022 01/10/2023 12:1 8 AM CDT COVID - 19 Confirmed 12/31/2022 12/31/2022 023 12:17 AM CDT COVID - 19 06/01/2023 06/01/2023 06/01/2023 8:16 AM CDT COVID - 19 11/01/2023 11/01/2023 11/11/2023 12:1 6 AM AWS SOFTWARE DEVELOPMENT ENGINEER COVID - 19 06/25/2024 06/25/2024 06/25/2024 6:36 PM CDT Assessment Noted Time PHQ-9 Depression Total Score: 0 11/22/19 10:00 AM AWS SOFTWARE DEVELOPMENT ENGINEER documented as of this encounter Care Teams Traveling Secretary Relationship Specialty Start Date End Date Marco Woods MD #2 [facility] [address] [place] [address] PCP - General Family Medicine 11/22/17 Kirsten Niño MD #2 [facility] [address] [place] [address] Consulting Physician Endocrinology 07/17/22 Chin Burrows MD #2 [facility] [address] [place] [address] Consulting Physician General Surgery 11/22/22 Kelsea Root, RN [place] Buyer Broker 06/15/23 08/26/23 Michelle Mendes APRN, RECEIVER #2 [facility] [address] [place] [address] Nurse Practitioner Advanced Practice Nurse 08/14/22 Chantelle Nix APRN, RECEIVER #2 [place] [address] Nurse Practitioner Advanced Practice Nurse 02/19/24 documented as of this encounter
--- OUTSIDE RECORDS SUMMARY | 2025-02-06 10:09 | XMS_ITS | Encounter Summary ---
Author Organization [facility] Address [address] [place] [address] Phone Care Team Providers Care [employer] Executive Director Name Role Phone Marco Woods MD Primary Care Provider Kirsten Niño MD Unavailable Chin Burrows MD Unavailable Kelsea Root RN Unavailable Unavailable Michelle Mendes APRN, EXPLOSIVE TECHNICIAN Unavailable Chantelle Nix APRN, EXPLOSIVE TECHNICIAN Unavailable Reason for Visit * Reason Comments Medication Refill Encounter Details Date Type Department Care Team (Late st Contact Info) Description 11/27/2020 Refill [facility] Medical Group - Family Medicine [facility] #2 [place] [phone] Marco Woods MD [id number] [address] Medication Refill Social History Tobacco Use Types Packs/Day Years Used Date Smoking Tobacco: Never Smokeless Tobacco: Former Alcohol Use Standard Drinks/Week Comments Not Currently 0 (1 standard drink = 0.6 oz pur e alcohol) Sexually Active Control Partners Comments Not Currently Comments No Sex and Gender Information Value Date Recorded Sex Assigned at Female 11/22/2023 11:58 AM DOORMAKER Legal Sex Female 11:34 PM CDT Gender Identity Female 11/22/2023 11:58 AM DOORMAKER Sexual Orientation Not on file Occupation Industry Job Start Date Job End Date disabled Not on file Not on file Not on file COVID-19 Exposure Response Date Recorded In the last month, have you been in contact with someone who was confirmed or suspected to have Coronavirus / COVID-19? No / Unsure 11/09/2020 1:41 PM DOORMAKER documented as of this encounter Miscellaneous Notes * Telephone Encounter - Marco Woods MD - 11/29/2020 6:52 AM CST Prescription approved. Please call in MAKER * Telephone Encounter - Reina Paulson RN [...] severity, unspecified whether complicated, unspecified whether persistent [facility] Medical [facility] Family Medicine - Marco Menchaca MD 2 months ago Asthma, unspecified asthma severity, unspecified whether complicated, unspecified whether persistent [facility] Medical [facility] Family Medicine Marco Santacruz MD 5 months ago Preop examination [facility] Medical [facility] Family Medicine Marco Santacruz MD 7 months ago Essential hypertension [facility] Family [facility] Marco Santacruz MD 11 months ago Essential hypertension [facility] Family Medicine Marco Santacruz MD Upcoming Appointments Future Appointments In [address] Mammography, [facility] In 3 weeks Kirsten Niño MD [facility] Medical Group - Endocrinology [facility] In 1 month Adrien [facility]oya MD [facility] PULMONOLOGY, [facility] In 2 months Marco Woods MD [facility] [place] [facility]K REPRESENTATIVE - Recent and Past Visits Recent Visits Date Type Provider Dept 11/09/20 Office Visit Marco Woods MD [facility] [place] 09/06/20 Office Visit Marco Woods MD [facility] [place] 06/09/20 Office Visit Marco Woods MD [facility] [place] 04/27/20 Office Visit Marco Woods MD [facility] [place] 12/24/19 Office Visit Marco Woods MD [facility] [place] 11/12/19 Office Visit Mirtha Steiner APN, EXPLOSIVE TECHNICIAN [facility] Office Visit Ronald Shaffer APN, EXPLOSIVE TECHNICIAN [facility] Showing recent visits within past 460 days with a meds authorizing provider and meeting all other requirements Future Appointments Date Type Provider Dept 02/07/21 Appointment Marco Woods MD [facility] Showing future appointments within next 90 days with a meds authorizing provider and meeting all other requirements MAKER documented in this encounter Plan of Treatment Upcoming Encounters Date Type Department Care Team (Late st Contact Info) Description 03/12/2025 8:00 AM CDT Office Visit [facility] Family [facility] #2 [place] [address] Marco Woods MD #2 [facility] [address] [place] [address] 05/11/2025 9:45 AM CDT Office Visit [facility] Endocrinology [facility] #2 [facility] [place] [address] Kirsten Niño MD #[address] [place] [address] 06/19/2025 10:00 AM CDT Office Visit [facility] Medical Group - Pulmonology & Sleep Medicine [facility] #2 [facility] [place] [address] Michelle Mendes APRN, EXPLOSIVE TECHNICIAN [facility] [address] [place] [address] documented as of this encounter Visit Diagnoses Not on filedocumented in this encounter Additional Health Concerns Infection Onset Date Last Indicated Resolved Time COVID - 19 06/29/2022 06/29/2022 07/09/2022 12:1 6 AM CDT COVID - 19 11/20/2022 11/20/2022 11/24/2022 8:51 AM DOORMAKER COVID - 19 12/31/2022 12/31/2022 01/10/2023 12:1 8 AM CDT COVID - 19 Confirmed 12/31/2022 12/31/2022 023 12:17 AM CDT COVID - 19 06/01/2023 06/01/2023 06/01/2023 8:16 AM CDT COVID - 19 11/01/2023 11/01/2023 11/11/2023 12:1 6 AM DOORMAKER COVID - 19 06/25/2024 06/25/2024 06/25/2024 6:36 PM CDT Assessment Noted Time PHQ-9 Depression Total Score: 0 11/22/19 18 10:00 AM DOORMAKER documented as of this encounter Care Teams [employer] Executive Director Relationship Specialty Start Date End Date Marco Woods MD #2 [facility] [address] [place] [address] PCP - General Family Medicine 11/22/17 Kirsten Niño MD #2 [facility] [address] [place] [address] Consulting Physician Endocrinology 07/17/22 Chin Burrows MD #2 [facility] [address] [place] [address] Consulting Physician General Surgery 11/22/22 Kelsea Root, RN [place] Heel Pricker 06/15/23 08/26/23 Michelle Mendes APRN, EXPLOSIVE TECHNICIAN #2 [facility] [address] [place] [address] Nurse Practitioner Advanced Practice Nurse 08/14/22 Chantelle Nix APRN, EXPLOSIVE TECHNICIAN #2 [place] [address] Nurse Practitioner Advanced Practice Nurse 02/19/24 documented as of this encounter
--- OUTSIDE RECORDS SUMMARY | 2025-02-06 10:09 | XMS_ITS | Encounter Summary ---
Author Organization [facility] Address [address] [place] [address] Phone Care Team Providers Care Consulting Software Engineer Name Role Phone Marco Woods MD Primary Care Provider Kirsten Niño MD Unavailable Chin Burrows MD Unavailable Kelsea Root RN Unavailable Unavailable Michelle Mendes APRN, MUNICIPAL SERVICES MANAGER Unavailable Chantelle Nix APRN, MUNICIPAL SERVICES MANAGER Unavailable Encounter Details Date Type Department Care Team (Late st Contact Info) Description 01/03/2021 Transcribe Orders [facility] Admitting [address] [place] [address] Denise Arenas, ROLLOFF DRIVER, MUNICIPAL SERVICES MANAGER [address] [facility] [address] [place] [address] exterminator helper use of drug (Primary Dx); Moderate depressed [...] Sex Assigned at Female 11/22/2023 11:58 AM FURNACE ERECTOR Legal Sex Female 11:34 PM CDT Gender Identity Female 11/22/2023 11:58 AM FURNACE ERECTOR Sexual Orientation Not on file Occupation Industry [...] Description 03/12/2025 8:00 AM CDT Office Visit [facility] Medical [facility] - Family Medicine [facility] [address] [place] [address] Marco Woods MD #2 [facility] [address] [place] [address] 05/11/2025 9:45 AM CDT Office Visit [facility] Medical [facility] - Endocrinology - [place] #[address] [place] [address] Kirsten Niño MD #2 [facility] [address] [place] [address] 06/19/2025 10:00 AM CDT Office Visit [facility] Medical [facility] - Pulmonology & Sleep Medicine [facility] [address] [place] [address] Michelle Mendes APRN, MUNICIPAL SERVICES MANAGER #2 [facility] [address] [place] [address] documented as of this encounter Results * LITHIUM (01/05/2021 6:36 AM CDT) LITHIUM 0.7 0.6 - 1.2 mmol/L 01/05/2021 10:29 AM CDT [facility] Comment:Resulted from [facility]. Blood Venipuncture / Unknown 01/05/2021 6:36 AM CDT 01/05/2021 7:09 AM CDT Denise Arenas APRN, MUNICIPAL SERVICES MANAGER CHEMISTRY ORDERABLES Final Result Performing Organization Address City/[facility]/ZIP Co de Phone Number [facility] [address] [place] [address] * (ABNORMAL) FOLIC ACID (FOLATE) (01/05/2021 6:36 AM CDT) Pathologist [facility] FOLATE 19.6(H) 3.1 - 17.5 ng/mL 01/05/2021 8:08 AM CDT [facility] IS THE PATIENT REQUIRED TO BE FASTING? No 01/05/2021 8:08 AM CDT [facility] Blood Venipuncture / Unknown 01/05/2021 6:36 AM CDT 01/05/2021 7:09 AM CDT Denise Arenas APRN, MUNICIPAL SERVICES MANAGER CHEMISTRY ORDERABLES Final Result [facility] [address] [place] [address] * THYROXINE (T4) FREE (01/05/2021 6:36 AM CDT) Pathologist [facility] T4 FREE 1.0 0.9 - 1.7 ng/dL 01/05/2021 7:56 AM CDT [facility] Blood Venipuncture / Unknown 01/05/2021 6:36 AM CDT 01/05/2021 7:09 AM CDT us Denise S Deepa ROLLOFF DRIVER, MUNICIPAL SERVICES MANAGER CHEMISTRY ORDERABLES Final Result [facility] [address] [place] [address] * (ABNORMAL) LIPID PANEL (01/05/2021 6:36 AM CDT) CHOLESTEROL 214(H) <=200 mg/dL 01/05/2021 7:56 AM CDT [facility] TRIGLYCERIDES 144 <150 mg/dL 01/05/2021 7:56 AM CDT [facility] HDL CHOLESTEROL 73.5 >40 mg/dL 7:56 AM CDT [facility] LDL 112 5 - 130 mg/dL 01/05/2021 7:56 AM CDT [facility] VLDL 29 5 - 55 mg/dL 01/05/2021 7:56 AM CDT [facility] CHOL/HDL RATIO 2.9 0.0 - 4.4 01/05/2021 7:56 AM CDT [facility] NON-HDL CHOLESTEROL 140.5(H) <130 mg/dL 01/05/2021 7:56 AM CDT [facility] IS THE PATIENT REQUIRED TO BE FASTING? No 01/05/2021 7:56 AM CDT [facility] Blood Venipuncture / Unknown 01/05/2021 6:36 AM CDT 01/05/2021 7:09 AM CDT Denise S Marilynny ROLLOFF DRIVER, MUNICIPAL SERVICES MANAGER CHEMISTRY ORDERABLES Final Result [facility] [address] [place] [address] * HEMOGLOBIN A1C W/ ESTIMATED GLUCOSE (01/05/2021 6:36 AM CDT) HGB-A1C 5.1 4.0 - 6.0 % 01/05/2021 7:24 AM CDT [facility] Est Average Glucose 99.7 mg/dL 01/05/2021 7:24 AM CDT [facility] Blood Venipuncture / Unknown 01/05/2021 6:36 AM CDT 01/05/2021 7:09 AM CDT Narrative [facility] - 01/05/2021 7:24 AM CDT HEMOGLOBIN A1C: DIABETIC PATIENTS: WELL-CONTROLLED: 6.2 - 7.0 INTERMEDIATE WELL-CONTROLLED: 7.0 - 9.0 POORLY-CONTROLLED: >9.0 Denise Arenas ROLLOFF DRIVER, DREW CHEMISTRY ORDERABLES Final Result [facility] [address] [place] [address] documented in this encounter Visit Diagnoses Diagnosis nursing home use of drug- Primary Encounter for long-term [...] - 19 11/20/2022 11/20/2022 11/24/2022 8:51 AM FURNACE ERECTOR COVID - 19 12/31/2022 12/31/2022 01/10/2023 12:1 8 AM CDT COVID - 19 Confirmed 12/31/2022 12/31/2022 023 12:17 AM CDT COVID - 19 06/01/2023 06/01/2023 06/01/2023 8:16 AM CDT COVID - 19 11/01/2023 11/01/2023 11/11/2023 12:1 6 AM FURNACE ERECTOR COVID - 19 06/25/2024 06/25/2024 06/25/2024 6:36 PM CDT Assessment Noted Time PHQ-9 Depression Total Score: 0 11/22/19 10:00 AM FURNACE ERECTOR documented as of this encounter Care Teams Consulting Software Engineer Relationship Specialty Start Date End Date Marco Woods MD #2 [facility] [address] [place] [address] PCP - General Family Medicine 11/22/17 Kirsten Niño MD #2 [facility] [address] [place] [address] Consulting Physician Endocrinology 07/17/22 Chin Burrows MD #2 [facility] [address] [place] [address] Consulting Physician General Surgery 11/22/22 Kelsea Root, JUWAN [place] Camera Maker 06/15/23 08/26/23 Michelle Mendes APRN, MUNICIPAL SERVICES MANAGER #2 [facility] [address] [place] [address] Nurse Practitioner Advanced Practice Nurse 08/14/22 Chantelle Nix APRN, MUNICIPAL SERVICES MANAGER #[address] [place] [address] Nurse Practitioner Advanced Practice Nurse 02/19/24 documented as of this encounter
== END 2025-02-06 09:59 | disposition home or self-care (01) ==
PROVIDERS: Visit Provider Nurse Practitioner Family
DX: R14.0 Abdominal distension (gaseous) (principal); K59.00 Constipation, unspecified
CPT/HCPCS: 74018

== ENCOUNTER 2025-03-02 09:38 | Outpatient (CLI) | payer MEDICARE, MEDICAID, SELFPAY ==
--- OUTSIDE RECORDS SUMMARY | 2025-03-02 09:42 | XMS_ITS | Referral Summary ---
Author Organization [facility] Address [address] [place] [address] Care Team Providers Care Green Tire Inspector Name Role Phone Nikhil Robles MD Primary Care Provider [phone] Allergies Active Allergy Reactions Criticality Noted Date [...] Nasal saline spray (Simply saline, Little Remedies, [place], [place]) 2 second sprays or 2 squeezes into [...] on file Legal Sex Female 6:03 PM QUANTITATIVE MANAGER Gender Identity Not on file Sexual Orientation Not on file Last Filed Vital Signs Vital Sign Reading Time Taken Comments Blood Pressure 170/75 09/19/2023 10:51 AM QUANTITATIVE MANAGER Pulse 114 09/19/2023 2:00 PM QUANTITATIVE MANAGER Temperature 36.6 C (97.8 F) 09/19/2023 10:51 AM QUANTITATIVE MANAGER Respiratory Rate 18 09/19/2023 10:51 AM QUANTITATIVE MANAGER Oxygen Saturation 98% 09/19/2023 10:51 AM QUANTITATIVE MANAGER Inhaled Oxygen Concentration - - Weight 80.3 kg (177 lb) 09/18/2023 3:16 PM QUANTITATIVE MANAGER Height 157.5 cm (5' 2 ) 09/18/2023 3:16 PM QUANTITATIVE MANAGER Body Mass Index 32.37 09/18/2023 3:16 PM QUANTITATIVE MANAGER Plan of Treatment Not on file Insurance [facility] MEDICARE ADVANTAGE [facility] MDCR HMO REF Member Subscriber Plan / Payer (Ef fective 2021-Present) Name:BeatrizKim goldendavid Pandya Relation to Subscriber:Self Name:BeatrizKim goldendavid Pandya Payer ID:[id number] (NAIC) Type:[facility] MEDICARE Address: [place] [id number] [facility] MEDICARE ADVANTAGE Advance Directives For more information, please contact: [phone] * Full Code (Latest Code Status on File) Date Activated Date Inactivated Comments 09/18/2023 2:35 PM 09/19/2023 6:39 PM * Full Code Date Activated Date Inactivated Comments 09/18/2023 12:47 PM 09/18/2023 2:35 PM Care Teams Green Tire Inspector Relationship Specialty Start Date End Date Nikhil Robles MD [address] [place] [address] PCP - General Emergency Medicine 03/12/24
--- OUTSIDE RECORDS SUMMARY | 2025-03-02 09:42 | XMS_ITS | Clinical Summary ---
Author Organization [facility] Address [address] [place] [address] Care Team Providers Care Laborer Demolition Name Role Phone Nikhil Robles MD Primary Care Provider [phone] Allergies Active Allergy Reactions Criticality Noted Date [...] Nasal saline spray (Simply saline, Little Remedies, [place], [place]) 2 second sprays or 2 squeezes into [...] on file Legal Sex Female 6:03 PM BONE WORKER Gender Identity Not on file Sexual Orientation Not on file Obstetrics History Last Filed Vital Signs Vital Sign Reading Time Taken Comments Blood Pressure 170/75 09/19/2023 10:51 AM BONE WORKER Pulse 114 09/19/2023 2:00 PM BONE WORKER Temperature 36.6 C (97.8 F) 09/19/2023 10:51 AM BONE WORKER Respiratory Rate 18 09/19/2023 10:51 AM BONE WORKER Oxygen Saturation 98% 09/19/2023 10:51 AM BONE WORKER Inhaled Oxygen Concentration - - Weight 80.3 kg (177 lb) 09/18/2023 3:16 PM BONE WORKER Height 157.5 cm (5' 2 ) 09/18/2023 3:16 PM BONE WORKER Body Mass Index 32.37 09/18/2023 3:16 PM BONE WORKER Plan of Treatment Health Maintenance Due Date [...] 022, 06/19/2021, 08/30/2017, Additional history exists Insurance [facility] MEDICARE ADVANTAGE [facility] MDCR HMO REF [employer] MEDICARE ADVANTAGE Advance Directives For more information, please contact: [phone] * Full Code (Latest Code Status on File) Date Activated Date Inactivated Comments 09/18/2023 2:35 PM 09/19/2023 6:39 PM * Full Code Date Activated Date Inactivated Comments 09/18/2023 12:47 PM 09/18/2023 2:35 PM Care Teams Laborer Demolition Relationship Specialty Start Date End Date Nikhil Robles MD [address] [place] [address] PCP - General Emergency Medicine 03/12/24
--- OUTSIDE RECORDS SUMMARY | 2025-03-02 09:42 | XMS_ITS | Data Portability ---
Author Organization [facility] Address [address] [place] [address] Assessment Encounter Date Assessment Date Assessment LastModified by Organization Details LastModified Time 04/01/2015 04/01/2015 URI sxs appear to be viral--pt is to let us know if sxs worsen. [email or web address] Not available 04/01/2015 12:45:52 02/26/2017 02/26/2017 Stop symbicort. Pt sees an ENT and a heel seat flap stapler. Not available 02/26/2017 12:21:36 Plan of Treatment Reminders Order Date Submit Date Provider Last Modified By Organization Details Last Modified Time Details Appointments None recorded. Lab None recorded. Referral None recorded. Procedures None recorded. Surgeries None recorded. Imaging None recorded. Medication Orders ProAir HFA 90 mcg/actuat ion aerosol inhaler 2016 017 INTERFACE [employer] #36155, [address] [place], [place], [id number], 7 12:20:23 cyclobenza ilia 10 mg tablet 2015 016 [email or web address] [email or web address] [facility] [address] [place], [place], [id number], 7 12:01:57 Voltaren 1 % topical gel 2015 016 INTERFACE [facility], [address] [place], [place], [id number], 6 15:58:06 Qvar 40 mcg/actuat ion Metered Aerosol oral inhaler 2014 015 pcunningha m7 [facility], [address] [place], [place], [id number], 7 12:02:24 montelukas t 10 mg tablet 2014 015 [email or web address] [facility], [address] [place], [id number], 5 17:54:35 Flovent HFA 220 mcg/actuat ion aerosol inhaler 2014 015 [email or web address] [facility], [address] [place], [place], [id number], 7 10:05:57 Patient TargetsNo targets recorded. Patient Instructions Encounter Date Encounter Id Patient Instructions Last Modified By Organization Details Last Modified Time 04/01/2015 [id number] When You Want to Lose Weight: Care Instructions [email or web address] Not available 04/07/2015 16:40:13 hypothyroidism: care instructions [email or web address] Not available 04/07/2015 16:40:13 10/01/2015 [id number] controlling your asthma: care instructions [email or web address] Not available 10/04/2015 09:15:49 learning about asthma [email or web address] Not available 10/04/2015 09:15:49 allergies: care instructions [email or web address] Not available 10/01/2015 17:54:35 managing your allergies: care instructions Not available 10/01/2015 17:54:35 When You Want to Lose Weight: Care Instructions [email or web address] Not available 10/01/2015 17:54:35 hypothyroidism: care instructions Not available 10/01/2015 17:54:35 shortness of breath: care instructions Not available 10/01/2015 17:54:35 03/31/2016 [id number] When You Want to Lose Weight: Care Instructions Not available 03/31/2016 16:03:45 hypothyroidism: care instructions Not available 03/31/2016 16:03:45 02/26/2017 [id number] controlling your asthma: care instructions Not available [...] t No observ ation record ed. [facility] ([facility] [address] [place], [address], 02/05/2015 13:56:27 03/12/20 15 imagi ng/di agnos tic resul t No observ ation record ed. [email or web address] Not Available 2014 15:37:15 01/10/20 16 01/10/2016 imagi ng/di agnos tic resul t No observ ation record ed. [email or web address] [facility] [address] [place], [address], 01/11/2016 00:46:44 02/01/20 17 01/31/2017 CT, abdom en + pelvi s, w/ contr ast No observ ation record ed. Not Available 2016 09:39:13 02/14/20 17 02/13/2017 MAMMO , diagn ostic , bilat eral, w/ CAD No observ ation record ed. [facility] [address] [place], [address], 02/14/2017 15:32:05 Result Notes None recorded. Problems Name Problem SNOMED Code Status Onset Date Resolution Date Notes Provider Name and Address Organization Details Recorded Time Arthritis 1482489 Active Anmol Stafford MD Attn: Accountin g,[address] [facility], [place], [address], [facility] 5 16:29:02 Anemia 377001793 Active Anmol Stafford MD Attn: Accountin g,[address] [facility], [place], [address], [place] [facility] 5 23:14:44 Morbid obesity 038678707 Active Anmol Stafford MD Attn: Accountin g,[address] [facility], [place], [address], [place] [facility] 6 15:57:59 Hypothyroidism 92642435 Active Anmol Stafford MD Attn: Accountin g,[address] [facility], [place], [address], [place] [facility] 6 15:57:59 Allergic rhinitis 15279554 Active Anmol Stafford MD Attn: Accountin g,[address] [facility], [place], [address], [place] [facility] 5 17:54:34 Asthma 485265678 Active Anmol Stafford MD Attn: Accountin g,[address] [facility], [place], [address], [place] [facility] 5 17:54:34 Dyspnea 724090148 Active Anmol Stafford MD Attn: Accountin g,[address] [facility], [place], [address], [place] [facility] 5 13:11:38 Problem Notes None recorded. Procedures Surgical History None recorded. Imaging Results Imaging Date Name Status LastModified by Organ atformerly [facility] Details LastModified Time 02/05/2015 imaging/diagn ostic result completed [email or web address] [facility]) Scheduling [address] [place], [address], 02/05/2015 13:56:27 03/12/2015 imaging/diagn ostic result completed [email or web address] Information not available 03/12/2015 15:37:15 01/10/2016 imaging/diagn ostic result completed [email or web address] [facility] [address] [place], [address], 01/11/2016 00:46:44 01/31/2017 CT, abdomen + pelvis, w/ contrast completed Information not available 02/01/2017 09:39:13 02/13/2017 MAMMO, diagnostic, bilateral, w/ CAD completed [facility] [address] [place], [address], 02/14/2017 15:32:05 Procedure Notes None recorded. Medical Equipment None Reported. Allergies Allergen ID Allergen Name Allergen Category Reaction Reaction Severity Criticality Documentation Date Start Date Code Code System Note Provider Name and Address Organization Details Recorded Time 9364 codeine medicatio n Not available Not available Not available 10/06/2014 2670 RxNorm BEKAH Kendrick [facility] 4 12:03:29 9365 Non-stero idal anti-infl ammatory agent (product) medicatio n Not available Not available Not available 10/06/2014 22755 005 SNOMED BEKAH Kendrick [facility] 4 12:03:29 Medications Name Sig Start Date Stop Date [...] Available Not Available No t Available Fluvirin 1061-1213 45 mcg (15 mcg x 3)/0.5 mL intramuscu lar suspension active Not Available Not Available N ot Available Trelegy Ellipta 100 mcg-62.5 mcg-25 mcg powder for inhalation INHALE 1 PUFF BY MOUTH DAILY active Not Available Not Available No t Available Bora Ellipta 200 mcg-62.5 mcg-25 mcg powder for [...] 5 24 /min 97 % 97 % 298161. 016253 g 98.9 [degF] 84 /min 42.7 kg/m2 154.94 cm 102 mm[Hg] 60 mm[Hg] Lesa Rojo RN [facility] 5 10:21:25 Date Recorded Respiratory rate Body weight Oxygen saturation Oxygen saturation in Arterial blood by Pulse oximetry Body height Heart rate Body mass index (BMI) Systolic blood pressure Diastolic blood pressure Provider Name and Address Organization Details Last Updated DateTime 5 24 /min 782027. 090177 g 95 % 95 % 154.94 cm 103 /min 43.7 kg/m2 144 mm[Hg] 82 mm[Hg] Azalea Mcconnell MA [facility] 5 10:46:58 Date Recorded Respiratory rate Body weight Oxygen saturation Oxygen saturation in Arterial blood by Pulse oximetry Body height Heart rate Body mass index (BMI) Systolic blood pressure Diastolic blood pressure Provider Name and Address Organization Details Last Updated DateTime 5 24 /min 568514. 280831 g 95 % 95 % 154.94 cm 87 /min 43.6 kg/m2 114 mm[Hg] 76 mm[Hg] Azalea Mcconnell MA [facility] 5 15:29:26 Date Recorded Respiratory rate Body height Body mass index (BMI) Heart rate Body weight Systolic blood pressure Diastolic blood pressure Provider Name and Address Organization Details Last Updated DateTime 6 16 /min 154.94 cm 43.6 kg/m2 82 /min 621185. 203373 g 152 mm[Hg] 82 mm[Hg] Ana M gayle [facility] 6 15:30:51 Date Recorded Body height Body weight Body mass index (BMI) Oxygen saturation Oxygen saturation in Arterial blood by Pulse oximetry Heart rate Respiratory rate Body temperature Systolic blood pressure Diastolic blood pressure Provider Name and Address Organization Details Last Updated DateTime 7 154.94 cm 489043. 61 g 44.2 kg/m2 95 % 95 % 72 /min 18 /min 98.2 [degF] 128 mm[Hg] 84 mm[Hg] Ana M gayle [facility] 7 12:00:46 Social History None recorded. Functional [...] B 5 completed Not Available [facility] 11/08/2019 02:32:57 tetanus toxoid, unspecified formulation 4 completed BEKAH Nicole, [facility] 10/16/2017 17:59:15 pneumococcal, unspecified formulation 9 completed BEKAH Nicole, [facility] 10/16/2017 17:59:31 Past Encounters Encounter ID Performer Location Encounter Start Date Encounter Closed Date Diagnosis/Indication Diagnosis SNOMED-CT Code Diagnosis ICD10 Code Diagnosis Note [id number] Anmol Stafford MD [place] [address] [place] [address] 10/06/2014 11:37:33 10/06/2014 13:05:59 Dyspnea 697514645 [id number] Anmol Stafford MD [place] [address] [place] [address] 11/04/2014 10:00:37 11/04/2014 13:09:05 Dyspnea 618213507 [id number] MD Julian Choudhury [place] [address] [place] [address] 03/04/2015 09:42:41 03/04/2015 15:14:58 Active or passive immunization 738539304 [id number] MD Julian Choudhury [place] [address] [place] [address] 04/01/2015 10:26:56 04/01/2015 13:40:36 Arthritis 6867582 Hypothyroidism 68335000 Morbid obesity 773662145 [id number] Anmol Stafford MD [facility] [address] [place] [address] 10/01/2015 15:07:02 10/01/2015 17:58:34 Dyspnea 732945203 R06.00 Allergic rhinitis 257788 04 J30.9 Hypothyroidism 50192065 E03.9 Morbid obesity 132314022 E66.01 Asthma 334344107 J45.90 9 [id number] Anmol Stafford MD [facility] [address] [place] [address] 03/31/2016 15:18:57 03/31/2016 16:41:34 Hypothyroidism 28353684 E03.9 Morbid obesity 601838632 E66.01 History of fall 32114765 9 Z91.81 [id number] Anmol Stafford MD [facility] [address] [place] [address] 02/26/2017 11:53:16 02/28/2017 09:40:12 Asthma 812602290 J45.909 Morbid obesity 433555951 E66.01 Hypothyroidism 65707081 E03.9 Health Concerns Section Related Observation LastModified by Organization Detai ls LastModified Time None Recorded Concern Status LastModified by Organization Details LastModified Time None Recorded Advance Directives Directive None Recorded Payers Encounter Date Sequence Insurance Name Policy Number Policy Elizabeth Covered Member ID Elizabeth Member ID Guarantor Name 03/04/2015 1 [place] Yudi Henderson [id number] Yudi Henderson 04/01/2015 1 [place] Yudi [place] [id number] Yudi Henderson 10/01/2015 1 [place] Yudi [place] [id number] Yudi Henderson 03/31/2016 1 [facility] (MEDICARE REPLACEMENT/AD VANTAGE - HMO) [id number] Yudi Henderson [id number] Yudi Henderson 03/31/2016 2 [place] WHEN [place] OR [place]IC[place] REPLACEMENT PRIMARY) Yudi Henderson [id number] Yudi Beatriz 02/26/2017 1 [facility] (MEDICARE REPLACEMENT/AD VANTAGE - HMO) [id number] Yudi Henderson [id number] Yudi Henderson 02/26/2017 2 [place] OR [place]IC[place] REPLACEMENT PRIMARY) Yudi Henderson [id number] Yudi Henderson Notes Date Note Type Note Provider Name and Address Organization Details Recorded Time 04/01/2015 text/html Patient presents for a regular checkup--she describes sxs of an URI since this morning but no production of sputum. Anmol Stafford MD Attn: Accounting,[address] [facility], [place], [address], [facility] 04/07/2015 16:29:25 10/01/2015 text/html Pt is dyspneic--no longer seen by a deputy chief magistrate. She states that she does much better on Qvar than the Flonase. Anmol Stafford MD Attn: Accounting,[address] [place], [address], [facility] 10/01/2015 17:55:03 03/31/2016 text/html Pt fell on March 27, 2016 at home. She is somewhat better now four days later. Anmol Stafford MD Attn: Accounting,[address] [facility], [place], [address], [facility] 03/31/2016 16:44:28 02/26/2017 text/html Pt is now better but states that she suffered from an asthma attack for one week. Anmol Stafford MD Attn: Accounting,[address] [place], [address], [facility] 02/28/2017 00:32:09 OBGyn Episode No OBEpisode recorded.
== END 2025-03-02 09:39 | disposition home or self-care (01) ==
LOC: ANHLAB 09:39
PROVIDERS: PCP Internal Medicine; Visit Provider Nurse Practitioner Family
DX: R19.5 Other fecal abnormalities (principal); K29.50 Unspecified chronic gastritis without bleeding; B96.81 Helicobacter pylori [H. pylori] as the cause of diseases classified elsewhere
CPT/HCPCS: 83993

== ENCOUNTER 2025-03-30 08:12 | Outpatient (CLI) | payer MEDICARE, MEDICAID, SELFPAY ==
--- NOTE | ~2025-03-30 | NM_ITS ---
EXAM: NM gastric emptying study DATE: 03/30/2025 13:55 INDICATION: Abdominal distention TECHNIQUE: A gastric emptying study was performed using the methodology of Melissa LARSEN, et al. J Nucl Med 2007; 48:568-572. The patient was given a meal consisting of 2 scrambled eggs labeled with 0.953 mCi Tc-99m sulfur colloid, 2 slices of toast, two packages of jam, and approximately 120 mL of water . Simultaneous anterior and posterior 1-min images of the abdomen were obtained with the patient supi ne at multiple time points over a total period of 4 hours. The geometric mean of anterior and posteri or views was determined, and the percentage retention was calculated for each time point. COMPARISON: None. FINDINGS: Gastric retention of the radiotracer-labeled meal was 52%, 42%, and 15% at the 1-hour, 2-hour, and 4- hour time points, respectively. With this technique, apparent rapid gastric emptying is suggested by <30% gastric retention at 1 hour. Delayed gastric emptying is defined by gastric retention of >90% at 1 hour, >60% retention at 2 hours, or >10% retention at 4 hours. IMPRESSION: 1. Delayed gastric emptying. Reviewed, dictated and finalized at location A.
--- OUTSIDE RECORDS SUMMARY | 2025-03-30 08:24 | XMS_ITS | Encounter Summary ---
Author Organization [facility] Address [address] [place] [address] Phone Care Team Providers Care Appeals Manager Name Role Phone Marco Woods MD Primary Care Provider Kirsten Niño MD Unavailable Chin Burrows MD Unavailable [phone] Michelle Mendes APRN, AMERICANIZATION TEACHER Unavailable Chantelle Nix RESEARCH DEVELOPMENT DIRECTOR, AMERICANIZATION TEACHER Unavailable Reason for Visit * Reason Comments Medication Refill Encounter Details Date Type Department Care Team (Late st Contact Info) Description 09/25/2023 [facility] [address] [place] [address] Kirsten Niño MD #[address] [address] Medication Refill Social History Tobacco [...] Sex Assigned at Female 11/22/2023 11:58 AM WASTE WATER PLANT OPERATOR Legal Sex Female 11:34 PM CDT Gender Identity Female 11/22/2023 11:58 AM WASTE WATER PLANT OPERATOR Sexual Orientation Not on file Occupation Industry Job Start Date Job End Date disabled Not on file Not on file Not on file documented as of this encounter Miscellaneous Notes * Telephone Encounter - Denise Doe, RN - 09/26/2023 8:46 AM WASTE WATER PLANT OPERATOR Requested Prescriptions Pending Prescriptions Disp Refills ??? Prolia 60 MG/ML Solution Prefilled Syringe [Pharmacy Med Name: PROLIA 60MG/ML CHARLEEN FOR INJ, 1ML]1 mL 0 Sig: INJECT 1ML SUBCUTANEOUS EVERY 6 MONTHS Next appt: 09/27/2024 E WATER PLANT OPERATOR documented in this encounter Plan of Treatment Upcoming Encounters Date Type Department Care Team (Late st Contact Info) Description 04/02/2025 2:30 PM CDT [facility] [address] [place] [address] Marco Woods MD #[address] [address] Discharge Disposition: Discharged to home or Selfcare 04/14/2025 6:30 PM CDT Office Visit [facility] - Family Medicine [facility] [address] [place] [address] Marco Woods MD #[address] [address] 05/11/2025 9:45 AM CDT Office Visit [facility] - Endocrinology - [place] #[address] [place] [address] Kirsten Niño MD #2 [facility] [address] [place] [address] 06/19/2025 10:00 AM CDT Office Visit [facility] - Pulmonology & Sleep Medicine - [place] [address] [place] [address] Michelle Mendes APRN, DREW #2 [facility] [address] [place] [address] documented as of this encounter Visit Diagnoses Not on filedocumented in this encounter Additional Health Concerns Infection Onset Date Last Indicated Resolved Time COVID - 19 11/01/2023 11/01/2023 11/11/2023 12:1 6 AM WASTE WATER PLANT OPERATOR COVID - 06/25/2024 06/25/2024 06/25/2024 6:36 PM CDT Assessment Noted Time PHQ-9 Depression Total Score: 0 11/22/19 10:00 AM WASTE WATER PLANT OPERATOR documented as of this encounter Care Teams Appeals Manager Relationship Specialty Start Date End Date Marco Woods MD #[address] [address] PCP - General Family Medicine 11/22/17 Kirsten Niño MD #2 [facility] [address] [place] [address] Consulting Physician Endocrinology 07/17/22 Chin Burrows MD #[address] [address] Consulting Physician General Surgery 11/22/22 Michelle Mendes APRN, DREW #2 [facility] [address] [place] [address] Nurse Practitioner Advanced Practice Nurse 08/14/22 Chantelle Nix APRN, AMERICANIZATION TEACHER #[address] [place] [address] Nurse Practitioner Advanced Practice Nurse 02/19/24 documented as of this encounter
--- OUTSIDE RECORDS SUMMARY | 2025-03-30 08:24 | XMS_ITS | Encounter Summary ---
Author Organization [facility] Address [address] [place] [address] Phone Care Team Providers Care Bond Writer Name Role Phone Marco Woods MD Primary Care Provider Kirsten Niño MD Unavailable Chin Burrows MD Unavailable [phone] Michelle Mendes BELL STAFF, CHILD AND FAMILY SERVICES SPECIALIST Unavailable Chantelle Nix BELL STAFF, CHILD AND FAMILY SERVICES SPECIALIST Unavailable Reason for Visit * Reason Onset Date Comments Results 03/09/2025 Encounter Details Date Type Department Care Team (Late st Contact Info) Description 03/09/2025 Telephone [facility] [address] [place] [address] Marco Woods MD #2 [facility] [address] Results Social History Tobacco Use Types Packs/Day Years Used Date Smoking Tobacco: Never Smokeless Tobacco: Never Alcohol Use Standard Drinks/Week Comments Not Currently 0 (1 standard drink = 0.6 oz pur e alcohol) [facility] Utilities Answer Date Recorded In the past 12 months has e electric, gas, oil, or water company threatened to shut off services in your home? Patient unable to answer 06/25/2024 Social Connection and Isolation Panel Answer Date Recorded In a typical week, how many times do you talk on the phone with family, friends, or neighbors? Patient declined 06/25/2024 How often do you get togethe r with friends or relatives? Patient declined 06/25/2024 How often do you attend catholic or faith serv ices? Patient declined 06/25/2024 Do you belong to any clubs o r organizations such as catholic groups, unions, fraternal or athletic groups, or [...] Total Score - Questions 1-9 18 10/24 [facility] - Occupational Stress Questionnaire Answer [...] a assisted (including now)? Patient declined 11/28/2023 Housing Stability [...] any time in the past 12 m [facility], were you homeless or living in a assisted (including now)? Patient unable to answer 06/25/2024 Education Answer Date Recorded What is the highest level of school you have completed or the highest degree you have received? 12th grade 04/03/2023 Sexually Active Control Partners Comments Not Currently Comments No Sex and Gender Information Value Date Recorded Sex Assigned at Female 11/22/2023 11:58 AM SENIOR GRANTS OFFICER Legal Sex Female 11:34 PM CDT Gender Identity Female 11/22/2023 11:58 AM SENIOR GRANTS OFFICER Sexual Orientation Not on file Occupation Industry Job Start Date Job End Date disabled Not on file Not on file Not on file documented as of this encounter Miscellaneous Notes * Telephone Encounter - Vanessa Randolph RN - 03/09/2025 2:11 PM CDT Situation: Results Background: Patient is contacting PCP Office to receive laboratory and chest x- ray results that were ordered by PCP. Testing completed on 03/06/2025. Assessment: Upon review, provider interpretation of lab results needed. Chest x- ray is still in process at this time. Patient advised and verbalized understanding. While on the phone, patient reportsthe Lasix was started this morning at 11:00am. She reports leg swelling with shortness of breath. See Nurse Triage Encounter, 03/09/2025. Patient reports symptoms are the same, not new or worse. She states she is only getting up to use the restroom and get food. Recommendation: Encouraged patient to call back with questions, concerns, or new/worsening symptoms. Patient verbalized understanding. Encounter routed to provider to notify. Provider to review results and contact patient with treatment plan recommendations. documented in this encounter Plan of Treatment Upcoming Encounters Date Type Department Care Team (Late st Contact Info) Description 04/02/2025 2:30 PM CDT EM[facility] Neurosciences Clinic [address] [place] [address] Marco Woods MD #[address] [address] Discharge Disposition: Discharged to home or Selfcare 04/14/2025 6:30 PM CDT Office Visit [facility] Medical [facility] - Family Medicine - [place] #[address] [place] [address] Marco Woods MD #[address] [address] 05/11/2025 9:45 AM CDT Office Visit [facility] - Endocrinology - [place] [address] [place] [address] Kirsten Niño MD #[address] [address] 06/19/2025 10:00 AM CDT Office Visit [facility] - Pulmonology & Sleep Medicine - [place] [address] [place] [address] Michelle Mendes APRN, CHILD AND FAMILY SERVICES SPECIALIST #2 [facility] [address] [place] [address] documented as of this encounter Visit Diagnoses Not on filedocumented in this encounter Additional Health Concerns Assessment Noted Time PHQ-9 Depression Total Score: 18 024 10:00 AM SENIOR GRANTS OFFICER documented as of this encounter Care Teams Bond Writer Relationship Specialty Start Date End Date Marco Woods MD #2 [facility] [address] [place] [address] PCP - General Family Medicine 11/22/17 Kirsten Niño MD #2 [facility] [address] [place] [address] Consulting Physician Endocrinology 07/17/22 Chin Burrows MD #2 [facility] [address] [place] [address] Consulting Physician General Surgery 11/22/22 Michelle Mendes APRN, DREW #2 [facility] [address] [place] [address] Nurse Practitioner Advanced Practice Nurse 08/14/22 Chantelle Nix APRN, CHILD AND FAMILY SERVICES SPECIALIST #[address] [place] [address] Nurse Practitioner Advanced Practice Nurse 02/19/24 documented as of this encounter
--- OUTSIDE RECORDS SUMMARY | 2025-03-30 08:24 | XMS_ITS | Encounter Summary ---
Author Organization [facility] Address [address] [place] [address] Phone Care Team Providers Care Tree Tapping Laborer Name Role Phone Marco Woods MD Primary Care Provider Kirsten Niño MD Unavailable Chin Burrows MD Unavailable Kelsea Root RN Unavailable Unavailable Michelle Mendes APRN, DAIRY STORE MANAGER Unavailable Chantelle Nix APRN, DAIRY STORE MANAGER Unavailable Reason for Visit * Reason Comments Medication Refill Encounter Details Date Type Department Care Team (Late st Contact Info) Description 07/21/2023 Refill [facility] - Family Medicine - [place] #[address] [place] [address] Marco Woods MD [address] [address] Medication Refill Social History Tobacco Use Types [...] Sex Assigned at Female 11/22/2023 11:58 AM COURIER Legal Sex Female 11:34 PM CDT Gender Identity Female 11/22/2023 11:58 AM COURIER Sexual Orientation Not on file Occupation Industry [...] Info) Description 04/02/2025 2:30 PM CDT EMG [facility] Neurosciences Clinic [address] [place] [address] Marco Woods MD #[address] [address] Discharge Disposition: Discharged to home or Selfcare 04/14/2025 6:30 PM CDT Office Visit [facility] - Family Medicine - [place] [address] [place] [address] Marco Woods MD #[address] [address] 05/11/2025 9:45 AM CDT Office Visit [facility] - Endocrinology - [place] #[address] [place] [address] Kirsten Niño MD #2 [facility] [address] [place] [address] 06/19/2025 10:00 AM CDT Office Visit [facility] - Pulmonology & Sleep Medicine [facility] #[address] [place] [address] Michelle Mendes, DROP CREW LABORER, DAIRY STORE MANAGER #2 [facility] [address] [place] [address] documented as of this encounter Visit Diagnoses Not on filedocumented in this encounter Additional Health Concerns Infection Onset Date Last Indicated Resolved Time COVID - 19 11/01/2023 11/01/2023 11/11/2023 12:1 6 AM COURIER COVID - 06/25/2024 06/25/2024 06/25/2024 6:36 PM CDT Assessment Noted Time PHQ-9 Depression Total Score: 0 11/22/19 10:00 AM COURIER documented as of this encounter Care Teams Tree Tapping Laborer Relationship Specialty Start Date End Date Marco Woods MD #[address] [address] PCP - General Family Medicine 11/22/17 Kirsten Niño MD #[address] [address] Consulting Physician Endocrinology 07/17/22 Chin Burrows MD #[address] [address] Consulting Physician General Surgery 11/22/22 Kelsea Root RN [place] Fur Trimming Machine Operator 06/15/23 08/26/23 Michelle Mendes APRN, DREW #[address] [address] Nurse Practitioner Advanced Practice Nurse 08/14/22 Chantelle Nix APRN, DREW #[address] [place] [address] Nurse Practitioner Advanced Practice Nurse 02/19/24 documented as of this encounter
--- OUTSIDE RECORDS SUMMARY | 2025-03-30 08:24 | XMS_ITS | Clinical Summary ---
Author Organization [facility] Address [address] [facility] [place] [address] Phone Care Team Providers Care Dude Wrangler Name Role Phone Marco Woods MD Primary Care Provider [phone] Kirsten Niño MD Unavailable Chin Burrows MD Unavailable [phone] Michelle Mendes BOATS RENTER, PLATING ENGINEER Unavailable SchChantelle ugalde APRN, PLATING ENGINEER Unavailable Allergies Active Allergy Reactions Criticality Noted [...] Tablet by mouth daily. 90 Tablet 3 025 Active ramelteon (ROZEREM) 8 MG Tablet Take 1 Tablet by mouth nightly. 90 Tablet 1 025 Active Fluticasone-Ume clidin-Vilant (Trelegy Ellipta) 100-62.5-25 MCG/ACT AEROSOL POWDER, BREATH ACTIVATED take 1 Puff by inhalation daily. 1 Each 3 025 Active azelastine (ASTELIN) 0.1 % SolutionIndicat ions:PND (post-nasal drip) 2 Sprays by Nasal route 2 times daily. Use in each nostril as directed 30 mL 3 025 Active Linzess 145 MCG CapsuleIndicati ons:Chronic constipation TAKE 1 CAPSULE BY MOUTH EVERY MORNING BEFORE BREAKFAST 30 Capsule 2 Active amLODIPine (NORVASC) 5 MG Tablet Take 1 Tablet by mouth daily. 90 Tablet 025 Active Denosumab (Prolia) 60 MG/ML Solution Prefilled SyringeIndicati ons:Osteoporosi s, unspecified osteoporosis type, unspecified pathological fracture presence 1 mL by Subcutaneous route once for 1 dose. 1 mL 025 2024 Active furosemide (LASIX) 20 MG Tablet Take 1 Tablet by mouth every morning. 7 Tablet Active furosemide (LASIX) 20 MG Tablet Take 1 Tablet by mouth Every Morning and Afternoon. 180 Tablet Active potassium chloride SA (KLORCON M) 20 MEQ Tablet Controlled Release Take 1 Tablet by mouth daily. 90 Tablet 025 Active rOPINIRole (REQUIP) 2 MG Tablet Take 1 Tablet by mouth 3 times daily for 120 days. 90 Tablet 3 025 2024 Active hydrOXYzine (ATARAX) 25 MG Tablet TAKE 2 TABLETS BY MOUTH TWICE A DAY 90 Tablet 025 Active levothyroxine (SYNTHROID) 137 MCG Tablet Take 1 Tablet by mouth daily. 90 Tablet 1 025 Active traMADol (ULTRAM) 50 MG TabletIndicatio ns:Pain of upper abdomen Take 1 Tablet by mouth every 8 hours as needed for Moderate or more severe pain. 60 Tablet 025 Active OXYGEN CONCENTRATOR 2 L/min by Does not apply route as needed for Other (shortness of breath). Discontinued(E rror) OLANZapine (ZYPREXA) 10 MG Tablet TAKE 1 TABLET BY MOUTH EVERY NIGHT AT BEDTIME 28 Tablet 2 025 2024 Discontinued(E rror) sertraline (ZOLOFT) 50 MG Tablet TAKE 1 TABLET BY MOUTH TWICE A DAY 56 Tablet 2 025 2024 Discontinued(E rror) traMADol (ULTRAM) 50 MG TabletIndicatio ns:Pain of upper abdomen Take 1 Tablet by mouth every 8 hours as needed for Moderate or more severe pain. 60 Tablet 025 2024 Discontinued(R eorder) levothyroxine (SYNTHROID) 137 MCG Tablet Take 1 Tablet by mouth daily. 90 Tablet 1 025 2024 Discontinued(D ose adjustment) hydrOXYzine (ATARAX) 25 MG Tablet TAKE 2 TABLETS BY MOUTH TWICE A DAY 90 Tablet 025 2024 Discontinued rOPINIRole (REQUIP) 2 MG Tablet Take 1 Tablet by mouth 2 times daily for 30 days. 60 Tablet 3 025 2024 Discontinued(R eorder) traMADol (ULTRAM) 50 MG TabletIndicatio ns:Pain of upper abdomen Take 1 Tablet by mouth every 8 hours as needed for Moderate or more severe pain. 60 Tablet 025 2024 Discontinued(R eorder) levothyroxine (SYNTHROID) 150 MCG Tablet Take 1 Tablet by mouth daily. 90 Tablet 1 025 2024 Discontinued(R eorder) levothyroxine (SYNTHROID) 150 MCG Tablet Take 1 Tablet by mouth daily. 90 Tablet 1 025 2024 Discontinued levothyroxine (SYNTHROID) 150 MCG Tablet Take 1 Tablet by mouth daily. 90 Tablet 1 025 2024 Discontinued(R eorder) fluconazole (DIFLUCAN) 150 MG Tablet Take 1 Tablet by mouth once for 1 dose. 1 Tablet 025 2024 fluconazole (DIFLUCAN) 150 MG Tablet Take 1 Tablet by mouth once for 1 dose. 1 Tablet 025 2024 Active Problems Problem Noted Date Diagnosed [...] 12/04/2018 Hypertrophy of inferior nasal turbinate 12/04/19 PNAR (perennial non-allergic rhinitis) 9 Facet arthropathy, [...] Encounters Date Type Department Care Team Description 03/30[facility] [place] [address] Marco Woods MD Medication Refill 03/29/2025 Telephone [facility] [place] [place] [address] [place] [address] Marco Woods MD 03/25/2025 [facility] [address] [place] [address] Marco Woods MD Medication Management 03/24/2025 Telephone [facility] [place] [place] [address] [place] [address] Marco Woods MD 03/24/2025 [facility]phone [facility] [address] [place] [address] Marco Woods MD Message to PCP from patient 03/17/2025 [facility]phone [facility] [address] [place] [address] Marco Woods MD Advice Only 03/13/2025 [facility] [place] [address] Marco Woods MD Medication Refill 03/12/2025 8:00 AM CDT [facility] [place] [address] Marco Woods MD Peripheral edema (Primary Dx); Acquired hypothyroidism Discharge Disposition: Discharged to home or Selfcare 03/12/2025 [facility]phone [facility] [address] [place] [phone] Marco Woods MD Need Order 03/12/2025 [facility] [address] [place] [address] Michelle Mendes BOATS RENTER, PLATING ENGINEER Medication Management 03/10/2025 [facility]phone [facility] [address] [place] [phone] Marco Woods MD Follow up/Information 03/09/2025 6:09 PM CDT - 03/09/2025 8:45 PM CDT [facility] [address] [place] [phone] Nikhil Robles PAC DOE (dyspnea on exertion) Discharge Disposition: Discharged to home or Selfcare 03/09/2025 Travel 03/09/2025 [facility]phone [facility] [address] [place] [phone] Marco Woods MD Results 03/09/2025 Telephone [facility] [address] [place] [phone] Marco Woods MD Medication Management; Shortness of Breath 03/09/2025 Telephone [facility] [address] [place] [phone] Marco Woods MD Medication Management 03/09/2025 Nurse Triage [facility] [address] [place] [phone] Marco Woods MD Shortness of Breath 03/08/2025 Results Follow-Up [facility] Medical [facility] - Endocrinology - [place] [address] [place] [address] Kirsten Niño MD THYROID STIMULATING HORMONE (TSH), THYROXINE (T4) FREE 03/06/2025 9:46 AM CDT - 03/06/2025 11:59 PM CDT Hospital [facility] [address] [place] [address] Marco Woods MD Discharge Disposition: Discharged to home or Selfcare 03/06/2025 Nurse Triage [facility] [address] [place] [phone] Marco Woods MD Advice Only; Leg Swelling 03/06/2025 Telephone [facility] [address] [place] [phone] Marco Woods MD Follow-up 03/05/2025 1:15 PM CDT Office Visit [facility] [address] [place] [phone] Marco Woods MD Peripheral edema (Primary Dx); SANDOVAL (dyspnea on exertion); Bilateral hand numbness Discharge Disposition: Discharged to home or Selfcare 03/05/2025 Travel 03/05/2025 Nurse Triage [facility] [address] [place] [phone] Marco Woods MD Edema 03/04/2025 Telephone [facility] Endocrinology [facility] [address] [place] [address] Kirsten Niño MD Advice Only 03/02/2025 Refill [facility] [address] [place] [phone] Marco Woods MD Medication Management 02/23/2025 Telephone [facility] - Pulmonology & Sleep Medicine [facility] [address] [place] [address] Michelle Mendes APRN, PLATING ENGINEER 02/16/2025 Telephone [facility] Pulmonology & Sleep Medicine [facility] [address] [place] [address] Michelle Mendes APRN, PLATING ENGINEER 02/11/2025 Refill [facility] [place] [place] [address] [place] [address] Marco Woods MD Medication Refill 02/06/2025 Nurse Triage [facility] [address] [place] [phone] Marco Woods MD Itching 02/03/2025 Results Follow-Up [facility] Endocrinology [facility] [address] [place] [address] Kirsten Niño MD THYROID STIMULATING HORMONE (TSH), THYROXINE (T4) FREE 02/02/2025 Telephone [facility] Endocrinology [facility] [address] [place] [address] Kirsten Niño MD Results; Medication Management 02/02/2025 Telephone [facility] [address] [place] [address] Kirsten Niño MD Care Management 01/30/2025 9:00 AM CDT Office Visit [facility] [address] [place] [address] Kirsten Niño MD Acquired hypothyroidism (Primary Dx); Osteoporosis, unspecified osteoporosis type, unspecified pathological fracture presence; Hypercalcemia; Hyperparathyroidism (HCC) Discharge Disposition: Discharged to home or Selfcare 01/30/2025 Travel 01/27/2025 Telephone [facility] Pulmonology & Sleep Medicine [facility] [address] [place] [address] Michelle Mendes APRN, PLATING ENGINEER 01/26/2025 Refill [facility] [place] [place] [address] [place] [address] Marco Woods MD Medication Refill 01/26/2025 [facility] [place] [address] Marco Woods MD Medication Refill 01/23/2025 1:58 PM CDT - 01/23/2025 11:59 PM CDT [facility] [address] [place] [address] Michelle Mendes APRN, PLATING ENGINEER Discharge Disposition: Discharged to home or Selfcare 01/23/2025 Travel 01/14/2025 [facility] [address] [place] [phone] Michelle Mendes APRN, DREW 01/08/2025 [facility]phone [facility] [address] [place] [phone] Marco Woods MD Medication Management 01/06/2025 Telephone [facility] Gastroenterology [facility] [address] [place] [phone] Chantelle Nix APRN, PLATING ENGINEER Constipation; Diarrhea 01/06/2025 Telephone [facility] [address] [place] [phone] Marco Woods MD Advice Only 01/05/2025 [facility] [place] [address] Marco Woods MD Medication Refill 12/30/2024 Telephone [facility] Pulmonology & Sleep Medicine [facility] [address] [place] [phone] Michelle Mendes APRN, PLATING ENGINEER from Last 3 Months Immunizations Immunization Administration Dates Next Due Covid-19, Mrna, Lnp-s, Pf, 3 0 Mcg/0.3 Ml Dose (Pfizer) 04/23/2021,03/26/2021 Hepatitis A And Hepatitis B Vaccine [...] Never Smokeless Tobacco: Never Tobacco Cessation:Counseling Given: Not Answered Alcohol Use Standard Drinks/Week Comments Not Currently 0 (1 standard drink = 0.6 oz pur e alcohol) [facility] Utilities Answer Date Recorded In the past 12 months has [employer], gas, oil, or water [employer] threatened to shut off services in your home? Patient unable to answer 06/25/2024 Social Connection and Isolation Panel Answer Date Recorded In a typical week, how many times do you talk on the phone with family, friends, or neighbors? Patient declined 06/25/2024 How often do you get togethe r with friends or relatives? Patient declined 06/25/2024 How often do you attend mosque or latter day serv ices? Patient declined 06/25/2024 Do you belong to any clubs o r organizations such as mosque groups, unions, fraternal or athletic groups, or [...] 10/24 [facility] of Occupat ional [facility] - Occupational Stress Questionnaire Answer Date [...] senior care (including now)? Patient declined 11/28/2023 Housing Stability [...] any time in the past [address] [facility], were you homeless or living in a senior care (including now)? Patient unable to answer 06/25/2024 Education Answer Date Recorded What is the highest level of school you have completed or the highest degree you have received? 12th grade 04/03/2023 Sexually Active [employer] Comments Not Currently Comments No Sex and Gender Information Value Date Recorded Sex Assigned at Female 11/22/2023 11:58 AM SECURITY DELIVERY SPECIALIST Legal Sex Female 11:34 PM CDT Gender Identity Female 11/22/2023 11:58 AM SECURITY DELIVERY SPECIALIST Sexual Orientation Not on file Occupation Industry Job Start Date Job End Date disabled Not on file Not on file Not on file Last Filed Vital Signs Vital Sign Reading Time Taken Comments Blood Pressure 128/72 03/12/2025 7:28 AM CDT Pulse 66 03/12/2025 7:28 AM CDT Temperature 36.7 C (98 F) 03/12/2025 7:28 AM CDT Respiratory Rate 18 03/12/2025 7:28 AM CDT Oxygen Saturation 99% 03/12/2025 7:28 AM CDT Inhaled Oxygen Concentration - - Weight 76.7 kg (169 lb 1.6 oz) 03/12/2025 7:28 A M CDT Height 149.9 cm (4' 11) 03/12/2025 7:28 AM CDT Body Mass Index 34.15 03/12/2025 7:28 AM CDT Plan of Treatment Upcoming Encounters Date Type Department Care Team (Late st Contact Info) Description 04/02/2025 2:30 PM CDT [facility] [address] [place] [address] Marco Woods MD #2 [facility] [address] [place] [address] Discharge Disposition: Discharged to home or Selfcare 04/14/2025 6:30 PM CDT Office Visit [facility] - Family Medicine - [place] [address] [place] [address] Marco Woods MD #2 [facility] [address] [place] [address] 05/11/2025 9:45 AM CDT Office Visit [facility] Medical [facility] - Endocrinology - [place] [address] [place] [address] Kirsten Niño MD #2 [facility] [address] [place] [address] 06/19/2025 10:00 AM CDT Office Visit [facility] Medical [facility] - Pulmonology & Sleep Medicine - [place] [address] [place] [address] Michelle Mendes APRN, PLATING ENGINEER #2 [facility] [address] [place] [address] Health Maintenance Due Date Last Done Comments Cologuard 2000 Immunochemical Fecal Occult Blood 2000 Hepatitis B Immunization (2 of 3 - [...] Years (Adults With 1 Tdap) 07/16/2031 07/16/2021 Pneumococcal Immunization (50+ years) Completed 09/10/2022, 06/19/2021, 08/30/2017, Additional history exists Pneumococcal Immunization Combined Discontinued 09/10/2022, 06/19/2021, 08/30/2017, Additional history exists Hepatitis C Virus (HCV) Screening Completed 02/23/2023, 02/23/2023, 01/18/2017 Human Papillomavirus (HPV) Immunization Aged Out No longer eligible based on patient's age to complete this topic Meningococcal Immunization (ACWY) Aged Out No longer eligible based on patient's age to complete this topic Rotavirus Immunization Aged Out No lo nger eligible based on patient's age to complete this topic Medical Devices Implanted Type Area Ticketer Device Identifier Shelf Expiration Date Model / Serial / Lot Clip 360 Resolution 235cm - [id number] Implanted:Qty: 2 on 07/12/2020 by Dani Garrett DO at [facility] IMPLANT [employer] 05/03/2023 [id number] / [id number] / [id number] Procedures Procedure Name Priority Date/Time Associated Diagnosis Comments XR CHEST SINGLE VIEW PORTABLE STAT 03/09/2025 6:45 PM CDT CBC WITH AUTO DIFFERENTIAL STAT 03/09/2025 6:37 PM CDT B-TYPE NATRIURETIC PEPTIDE (BNP) STAT 03/09/2025 6:37 PM CDT TROPONIN I, HIGH SENSITIVITY (HSTRP) STAT 03/09/2025 6:37 PM CDT MAGNESIUM (MG) STAT 03/09/2025 6:37 PM CDT CMP (COMPREHENSIVE METABOLIC PANEL) STAT 03/09/2025 6:37 PM CDT COMPLETE BLOOD COUNT (CBC) WITH DIFF STAT 03/09/2025 6:37 PM CDT EKG 12 LEAD STAT 03/09/2025 6:16 PM CDT EKG SCAN 03/09/2025 12:00 AM CDT XR CHEST 2 VIEWS Routine 03/06/2025 10:2 0 AM CDT Peripheral edema SANDOVAL (dyspnea on exertion) CBC WITH AUTO DIFFERENTIAL Today 03/06/2025 9:36 AM CDT Peripheral edema SANDOVAL (dyspnea on exertion) COMPLETE BLOOD COUNT (CBC) WITH DIFF Today 03/06/2025 9:36 AM CDT Peripheral edema SANDOVAL (dyspnea on exertion) CMP (COMPREHENSIVE METABOLIC PANEL) Today 03/06/2025 9:36 AM CDT Peripheral edema SANDOVAL (dyspnea on exertion) THYROXINE (T4) FREE Routine 03/06/2025 9 :36 AM CDT Acquired hypothyroidism Osteoporosis, unspecified osteoporosis type, unspecified pathological fracture presence Hypercalcemia Hyperparathyroidism (HCC) THYROID STIMULATING HORMONE (TSH) Routine 03/06/2025 9:36 AM CDT Acquired hypothyroidism Osteoporosis, unspecified osteoporosis type, unspecified pathological fracture presence Hypercalcemia Hyperparathyroidism (HCC) B-TYPE NATRIURETIC PEPTIDE (BNP) Routine 03/06/2025 9:36 AM CDT Peripheral edema SANDOVAL (dyspnea on exertion) THYROXINE (T4) FREE Routine 02/02/2025 6 :09 AM CDT Acquired hypothyroidism THYROID STIMULATING HORMONE (TSH) Routine 02/02/2025 6:09 AM CDT Acquired hypothyroidism COMPLETE PFT W + W/O BRONCHODILATOR Routine 01/23/2025 Mixed simple and mucopurulent chronic bronchitis (HCC) HM COLONOSCOPY 12/11/2024 12:00 AM SECURITY DELIVERY SPECIALIST YU BONE DENSITOMETRY AXIAL SKELETON Routine 11/28/2024 2:24 PM SECURITY DELIVERY SPECIALIST Hyperparathyroidism (HCC) Osteoporosis, unspecified osteoporosis type, unspecified pathological fracture presence YU SCREENING BILATERAL DIGITAL W CAD W NATALIIA Routine 05/08/2023 12:09 PM CDT Encounter for screening mammogram for malignant neoplasm of breast HEPATITIS PANEL ACUTE (AHP) 02/23/2023 12:00 AM CDT from Last 3 Months or Most Recently Relevant to Health Maintenance Results * XR CHEST SINGLE VIEW PORTABLE (03/09/2025 6:45 PM CDT) Anatomical Region Laterality Modality Chest N/A Computed Radiogr aphy 03/09/2025 6:49 PM CDT Impressions 03/09/2025 6:51 PM CDT IMPRESSION: No acute cardiopulmonary abnormality. Narrative 03/09/2025 6:51 PM CDT EXAM DESCRIPTION: XR CHEST SINGLE VIEW PORTABLE REASON FOR STUDY: pt c/o worsening SOB with exertion and bilateral leg swelling since 03/05/25. hx of CHF, asthma, COPD, and HTN TECHNIQUE: Single radiographic view(s) of the chest. COMPARISON: 03/06/2020 FINDINGS: LUNGS: Chronic lung changes are noted. No consolidation, effusion or other acute process is seen. HEART/MEDIASTINUM: Cardiac silhouette normal in size. Mediastinal and hilar contours appear normal. LINES/TUBES: None. BONES: Bones are somewhat osteopenic. Mild degenerative changes are noted. THIS IS AN ELECTRONICALLY VERIFIED FINAL REPORT 03/09/2025 6:49 PM - Electronically signed by Lavelle PITT: SWEETIE Report ID: [id number] Reading Location: [id number] Procedure Note Lavelle Gu MD - 03/09/2025 EXAM DESCRIPTION: XR CHEST SINGLE VIEW PORTABLE REASON FOR STUDY: pt c/o worsening SOB with exertion and bilateral leg swelling since 03/05/25. hx of CHF, asthma, COPD, and HTN TECHNIQUE: Single radiographic view(s) of the chest. COMPARISON: 03/06/2020 FINDINGS: LUNGS: Chronic lung changes are noted. No consolidation, effusion or other acute process is seen. HEART/MEDIASTINUM: Cardiac silhouette normal in size. Mediastinal and hilar contours appear normal. LINES/TUBES: None. BONES: Bones are somewhat osteopenic. Mild degenerative changes are noted. THIS IS AN ELECTRONICALLY VERIFIED FINAL REPORT 03/09/2025 6:49 PM - Electronically signed by Lavelle Gu M.D. KH: SWEETIE Report ID: [id number] Reading Location: [id number] IMPRESSION: No acute cardiopulmonary abnormality. Nikhil Robles [facility] IMG DIAGNOSTIC ORDER KRYS Final Result * TROPONIN I, HIGH SENSITIVITY (HSTRP) (03/09/2025 6:37 PM CDT) TROPONIN I, HIGH SENSITIVITY- LEACH 3 <=14 ng/L 03/09/2025 7:41 PM CDT [facility] Comment: High-sensitivity troponin I results are reported in ng/L making the result appear to be 1,000 times higher than the contemporary troponin I value which is reported in ng/ml. Results from [place]. Blood Venipuncture / Unknown 03/09/2025 6:37 PM CDT 03/09/2025 7:14 PM CDT us Nikhilabelardo Lara Travis PAC CHEMISTRY ORDERABLES Final Result [facility] [address] [place] [address] * (ABNORMAL) CBC with Auto Differential (03/09/2025 6:37 PM CDT) Only the most recent of2 resultswithin the time period is included. WBC 13.50(H) 4.00 - 12.00 10(3)/mcL 03/09/2025 7:53 PM CDT [facility] RBC 4.10 3.80 - 5.30 10(6)/[facility] 03/09/2025 7:53 PM CDT [facility] HEMOGLOBIN (HGB) 11.7(L) 12.0 - 15.8 g/dL 03/09/2025 7:53 PM CDT [facility] HEMATOCRIT (HCT) 36.7 36.0 - 47.0 % 03/09/2025 7:53 PM CDT [facility] MCV 89.5 82.0 - 96.0 fL 03/09/2025 7:53 PM CDT [facility] MCH 28.5 26.0 - 34.0 pg 03/09/2025 7:53 PM CDT [facility] MCHC 31.9 31.0 - 36.0 g/dL 03/09/2025 7:53 PM CDT [facility] PLATELET COUNT 698(H) 140 - 440 10(3)/[facility] 03/09/2025 7:53 PM CDT [facility] RDW 16.2(H) 11.8 - 15.5 % 03/09/2025 7:53 PM CDT [facility] MPV 10.1 9.7 - 12.4 fL 03/09/2025 7:53 PM CDT [facility] NRBC PER 100 WBC 0 03/09/2025 7:53 PM CDT [facility] Blood Venipuncture / Unknown 03/09/2025 6:37 PM CDT 03/09/2025 7:14 PM CDT Nikhil Robles PAC HEMATOLOGY ORDERABLE S Final Result Performing Organization Address City/[facility] [address]/ZIP Co de Phone Number [facility] [address] [place] [address] * Magnesium (03/09/2025 6:37 PM CDT) MAGNESIUM 1.6 1.6 - 2.6 mg/dL 03/09/2025 7:37 PM CDT [facility] Blood Venipuncture / Unknown 03/09/2025 6:37 PM CDT 03/09/2025 7:14 PM CDT Nikhil Robles PAC CHEMISTRY ORDERABLES Final Result Performing Organization Address [facility] Co de Phone Number [facility] [address] [place] [address] * (ABNORMAL) CMP (03/09/2025 6:37 PM CDT) Only the most recent of2 resultswithin the time period is included. SODIUM 138 136 - 145 mmol/L 03/09/2025 7:37 PM CDT [facility] POTASSIUM 3.7 3.5 - 5.1 mmol/L 03/09/2025 7:37 PM CDT [facility] CHLORIDE 113(H) 98 - 107 mmol/L 03/09/2025 7:37 PM CDT [facility] CO2, VENOUS 15(L) 22 - 30 mmol/L 03/09/2025 7:37 PM CDT [facility] ANION GAP 13.7 <18.0 mmol/L 03/09/2025 7:37 PM CDT [facility] GLUCOSE 110(H) 70 - 99 mg/dL 03/09/2025 7:37 PM CDT [facility] BUN 14 10 - 20 mg/dL 03/09/2025 7:37 PM CDT [facility] CREATININE, BLOOD 0.64 0.60 - 1.00 mg/dL 03/09/2025 7:37 PM CDT [facility] BUN/CREATININE RATIO 22(H) 12 - 20 ratio 03/09/2025 7:37 PM CDT [facility] TOTAL PROTEIN 7.5 6.0 - 8.0 g/dL 03/09/2025 7:37 PM CDT [facility] ALBUMIN 3.7 3.5 - 5.0 g/dL 03/09/2025 7:37 PM CDT [facility] A/G RATIO 1.0 1.0 - 2.2 03/09/2025 7:37 PM CDT [facility] CALCIUM 9.0 8.7 - 10.5 mg/dL 03/09/2025 7:37 PM CDT [facility] T BILI 0.2 0.2 - 1.2 mg/dL 03/09/2025 7:37 PM CDT [facility] SGOT (AST) 57(H) <43 U/L 03/09/2025 7:37 PM T [facility] SGPT (ALT) 58(H) <56 U/L 03/09/2025 7:37 PM CDT [facility] ALKALINE PHOSPHATASE 212(H) 40 - 150 U/L 03/09/2025 7:37 PM CDT [facility] GFR, ESTIMATED >60 >=60 03/09/2025 7:37 PM CDT [facility] Comment: Creatinine Clearance is the preferred criteria for selecting drug dose adjustments in renally impaired patients. The GFR is provided as additional pertinent clinical information. GFR is reported in mL/min/1.73 sq m. Calculation based on the Chronic Kidney Disease Epidemiology Collaboration (CKD- EPI) equation refit without adjustment for race. GFR, EST. >60 >=60 025 7:37 PM CDT [facility] GFR, EST. NONAFRICAN >60 >=60 03/09/2025 7:37 PM CDT [facility] Blood Venipuncture / Unknown 03/09/2025 6:37 PM CDT 03/09/2025 7:14 PM CDT Nikhil Robles PAC CHEMISTRY ORDERABLES Final Result Performing Organization Address City/[facility] Co de Phone Number [facility] [address] [place] [address] * B-Type Natriuretic Peptide (BNP) (03/09/2025 6:37 PM CDT) Only the most recent of2 resultswithin the time period is included. B TYPE NATRIURETIC PEPTIDE <15 <100 pg/mL 03/09/2025 7:54 PM CDT [facility] Blood Venipuncture / Unknown 03/09/2025 6:37 PM CDT 03/09/2025 7:14 PM CDT Nikhil Robles PAC CHEMISTRY ORDERABLES Final Result Performing Organization Address [facility] [address] [facility] Co de Phone Number [facility] [address] [place] [address] * EKG 12 LEAD (03/09/2025 6:16 PM CDT) Ventricular Rate 62 BPM EXTERNAL EKG Atrial Rate 62 BPM EXTERNAL EKG P-R Interval 160 ms EXTERNAL EKG QRS Duration 114 ms EXTERNAL EKG Q-T Duration 470 ms EXTERNAL EKG QTC CALCULATION 477 ms EXTERNAL EKG P [facility] 36 degrees EXTERNAL EKG R [facility] -42 degrees EXTERNAL EKG T [facility] 24 degrees EXTERNAL EKG 03/09/2025 6:16 PM CDT Impressions EXTERNAL EKG - 03/10/2025 10:14 AM CDT Normal sinus rhythm Left axis deviation Right bundle branch block Abnormal ECG When compared with ECG of 25-JUN-2024 23:32, Sinus rhythm has replaced Atrial fibrillation Vent. rate has decreased BY 77 BPM Confirmed by Karin Strong ([id number]) on 03/10/2025 10:14:45 AM Narrative Procedure Note Karin Strong, - 03/10/2025 IMPRESSION: Normal sinus rhythm Left axis deviation Right bundle branch block Abnormal ECG When compared with ECG of 25-JUN-2024 23:32, Sinus rhythm has replaced Atrial fibrillation Vent. rate has decreased BY 77 BPM Confirmed by Karin Strong ([id number]) on 03/10/2025 10:14:45 AM Tyrone Maurice MD IMG ECG ORDERABLES Final Result Performing Organization Address City/[facility] [address]/[facility] Co de Phone Number EXTERNAL EKG * EKG SCAN (03/09/2025 12:00 AM CDT) 03/09/2025 Provider Scan IMG ECG ORDERABLES Final Result Performing Organization Address City/State/[facility] Co de Phone Number RESULTING AGENCY * XR CHEST 2 VIEWS (03/06/2025 10:20 AM CDT) Anatomical Region Laterality Modality Chest N/A Digital Radiogra phy 03/09/2025 6:45 PM CDT Impressions 03/09/2025 6:47 PM CDT IMPRESSION: No acute cardiopulmonary abnormality. Narrative 03/09/2025 6:47 PM CDT EXAM DESCRIPTION: XR CHEST 2 VIEWS REASON FOR STUDY: leg swelling and sob on exertion onset 03/05/25 TECHNIQUE: Frontal radiographic view(s) of the chest. COMPARISON: Chest radiograph, dated 11/28/2024. FINDINGS: LUNGS: No focal opacity, pleural effusion, or pneumothorax. HEART/MEDIASTINUM: Cardiac silhouette normal in size. Mediastinal and hilar contours appear normal. LINES/TUBES: None. BONES: No acute osseous abnormality. THIS IS AN ELECTRONICALLY VERIFIED FINAL REPORT 03/09/2025 6:45 PM - Electronically signed by Marco Carrillo M.D. MF: FRANNY Report ID: [id number] Reading Location: [id number] Procedure Note Marco Carrillo, DO - 03/09/2025 EXAM DESCRIPTION: XR CHEST 2 VIEWS REASON FOR STUDY: leg swelling and sob on exertion onset 03/05/25 TECHNIQUE: Frontal radiographic view(s) of the chest. COMPARISON: Chest radiograph, dated 11/28/2024. FINDINGS: LUNGS: No focal opacity, pleural effusion, or pneumothorax. HEART/MEDIASTINUM: Cardiac silhouette normal in size. Mediastinal and hilar contours appear normal. LINES/TUBES: None. BONES: No acute osseous abnormality. THIS IS AN ELECTRONICALLY VERIFIED FINAL REPORT 03/09/2025 6:45 PM - Electronically signed by Marco Carrillo M.D. MF: FRANNY Report ID: [id number] Reading Location: [id number] IMPRESSION: No acute cardiopulmonary abnormality. us Marco Woods MD IMG DIAGNOSTIC ORDERABLES Fin al Result * THYROXINE (T4) FREE (03/06/2025 9:36 AM CDT) Only the most recent of2 resultswithin the time period is included. T4 FREE 0.9 0.7 - 1.9 ng/dL 03/06/2025 11:15 AM CDT [facility] Blood Venipuncture / Unknown 03/06/2025 9:36 AM CDT 03/06/2025 10:20 AM CDT us Kirsten Niño MD CHEMISTRY ORDERABLES Final Resul t [facility] [address] [place] [address] * (ABNORMAL) THYROID STIMULATING HORMONE (TSH) (03/06/2025 9:36 AM CDT) Only the most recent of2 resultswithin the time period is included. TSH 12.186(H) 0.300 - 5.000 mIU/L 03/06/2025 11:15 AM CDT [facility] Blood Venipuncture / Unknown 03/06/2025 9:36 AM CDT 03/06/2025 10:20 AM CDT us Kirsten Niño MD CHEMISTRY ORDERABLES Final Resul t Performing Organization Address City/[facility] [address]/[facility] Co de Phone Number [facility] [address] [place] [address] * HM COLONOSCOPY (12/11/2024 12:00 AM SECURITY DELIVERY SPECIALIST) 12/11/2024 us Provider Scan PROCEDURE/MINOR SURGICAL ORDERAB LES Final Result Performing Organization Address City/[facility] Co de Phone Number SCAN * YU BONE DENSITOMETRY AXIAL SKELETON (11/28/2024 2:24 PM SECURITY DELIVERY SPECIALIST) Anatomical Region Laterality Modality BODY N/A Computed Radiogr aphy 12/01/2024 9:02 AM SECURITY DELIVERY SPECIALIST Impressions 12/01/2024 9:05 AM SECURITY DELIVERY SPECIALIST IMPRESSION: Low bone mass REFERENCE: Bone mineral [...] of Osteoporosis (http://www.nof.org/professionals/clinical-guidelines) Narrative 12/01/2024 9:05 AM SECURITY DELIVERY SPECIALIST EXAM DESCRIPTION: YU BONE DENSITOMETRY AXIAL SKELETON REASON FOR STUDY: 69 y/o year old F with given history of: Hyperparathyroidism. Postmenopausal status. History of prior fracture and secondary osteoporosis. Patient previously took vitamin-D. Patient takes Prolia. Ticketer/Model: Avista (S/N [id number]) Facility LSC value of 0.028 for the [...] Kaitlin Weems M.D. TW: FRANC Report ID: [id number] Reading Location: [id number] Procedure Note Kaitlin Weems MD - 12/01/2024 EXAM DESCRIPTION: [facility] BONE DENSITOMETRY AXIAL SKELETON REASON FOR STUDY: 69 y/o year old F with given history of: Hyperparathyroidism. Postmenopausal status. History of prior fracture and secondary osteoporosis. Patient previously took vitamin-D. Patient takes Prolia. Ticketer/Model: Avista (S/N [id number]) Facility LSC value of 0.028 for the [...] Kaitlin Weems M.D. TW: FRANC Report ID: [id number] Reading Location: [id number] IMPRESSION: Low bone mass REFERENCE: Bone mineral [...] to Prevention and Treatment of Osteoporosis (http://www.nof.org/professionals/clinical-guidelines) us Kirsten Niño MD IMG DEXA ORDERABLES Final Result * YU SCREENING BILATERAL DIGITAL W CAD [...] to exams dated: 01/03/2021, 02/13/2022, and 02/06/2018 [facility]. BREAST TISSUE:The tissue of both breasts is [...] exam. Electronically signed by: Claudia guevara/penrad:05/08/2023 19:31:07 Welder Fitter Gas(s): RT Tuan(R)(M), [facility] letter sent: Normal Exam Reading location: [place] BI-RADS: 2 Benign Procedure Note Claudia Acosta MD - 05/09/2023 - YU SCREENING BILATERAL DIGITAL W CAD W NATALIIA BILATERAL DIGITAL SCREENING MAMMOGRAM 3D/2D WITH CAD WITH MEDIOLATERAL OBLIQUE CRANIOCAUDAL: 05/08/2023 The study was acquired using digital technology and interpreted from soft copy. Current study was also evaluated with Visible Path version 7.2. 2D digital mammographic views, as well as 3D digital tomosynthesis were performed in the CC and MLO projections. CLINICAL: Routine screening. Patient has no complaints. Patient reports 15-20 pound weight loss since last mammogram. No personal history of cancer. Maternal grandmother had breast cancer. COMPARISONS: Comparison is made to exams dated: 01/03/2021, 02/13/2022, and 02/06/2018 [facility]. BREAST TISSUE:The tissue of both breasts is [...] exam. Electronically signed by: Claudia guevara/penrad:05/08/2023 19:31:07 Welder Fitter Gas(s): RT Tuan(R)(M), [facility] letter sent: Normal Exam Reading location: [place] [...] Documents on File Type Date Recorded Patient Firearms Model Maker Expl anation Power of Do All Operator for Health Care 11/27/2022 5:01 PM POA-HC, [...] measures to stabilize the patient. Care Teams Dude Wrangler Relationship Specialty Start Date End Date Marco Woods MD #2 [facility] [address] [place] [address] PCP - General Family Medicine 11/22/17 Kirsten Niño MD #2 [facility] [address] [place] [address] Consulting Physician Endocrinology 07/17/22 Chin Burrows MD #[address] [address] Consulting Physician General Surgery 11/22/22 Michelle Mendes APRN, PLATING ENGINEER #[address] [address] Nurse Practitioner Advanced Practice Nurse 08/14/22 Chantelle Nix APRN, PLATING ENGINEER #2 [place] [address] Nurse Practitioner Advanced Practice Nurse 02/19/24
--- OUTSIDE RECORDS SUMMARY | 2025-03-30 08:25 | XMS_ITS | Encounter Summary ---
Author Organization [facility] Address [address] [place] [address] Phone Care Team Providers Care Cattle Dehorner Name Role Phone Marco Woods MD Primary Care Provider [phone] Kirsten Niño MD Unavailable Chin Burrows MD Unavailable Michelle Mendes STRIP MINE SUPERVISOR, TAG MACHINE OPERATOR Unavailable [phone] Chantelle Nix STRIP MINE SUPERVISOR, TAG MACHINE OPERATOR Unavailable Reason for Visit * Reason Onset Date Comments Message to PCP from patient 03/24/2025 Encounter Details Date Type Department Care Team (Late st Contact Info) Description 03/24/2025 Telephone [facility] [address] [place] [address] Marco Woods MD #2 [facility] [place], [place] [id number] Message to PCP from patient Social History Tobacco Use Types Packs/Day Years [...] declined 06/25/2024 How often do you attend jainism or anabaptist serv ices? Patient declined 06/25/2024 Do you belong to any clubs o r organizations such as jainism groups, unions, fraternal or athletic groups, or [...] Total Score - Questions 1-9 18 10/24 [facility] - Occupational [...] place to sleep or slept in a nursing home (including now)? Patient declined 11/28/2023 Housing [...] any time in the past 12 [facility], were you homeless or living in a nursing home (including now)? Patient unable to answer 06/25/2024 Education Answer Date Recorded What is the highest level of school you have completed or the highest degree you have received? 12th grade 04/03/2023 Sexually Active Control Partners Comments Not Currently Comments No Sex and Gender Information Value Date Recorded Sex Assigned at Female 11/22/2023 11:58 AM STAGE HAND Legal Sex Female 11:34 PM CDT Gender Identity Female 11/22/2023 11:58 AM STAGE HAND Sexual Orientation Not on file Occupation Industry Job Start Date Job End Date disabled Not on file Not on file Not on file documented as of this encounter Miscellaneous Notes * Telephone Encounter - Sherrie Roblero RN - 03/29/2025 3:35 AM CDT Situation: Medication refill Background: Yudi Pandya Beatriz contacting PCP office. Assessment: Yudi had diflucan last Porsha. Symptoms resolved until today when they began again. Only 1 tablet ordered in last fill and would like refill. She states in the past she has required a second dose. Medication: Diflucan Dose: 150 mg Frequency: once Route: by mouth Directions: Take 1 tab by mouth once for one dose Pharmacy: [facility] Provider: Dr. Woods Recommendation: Please advise and call back. Advised Yudi to call back with any new or worsening symptoms and she agrees. * Telephone Encounter - Beryl Orellana RN - 03/24/2025 2:33 AM CDT Patient calling after hours to request a prescription for a yeast infection. She reports she has been ignoring the signs for 2 weeks and tonight she can no longer ignore it. She had been on antibiotics for a month back in December 2024 and per chart review, she was prescribedsomething for a yeast infection on 12/25/24. States symptoms are the same as a yeast infection. Patient uses [facility] in [place], [place]. Patient can be reached by phone later today, after 1100. Please advise. documented in this encounter Plan of Treatment Upcoming Encounters Date Type Department Care Team (Late st Contact Info) Description 04/02/2025 2:30 PM CDT [facility] [address] [place] [address] Marco Woods MD #[address] [address] Discharge Disposition: Discharged to home or Selfcare 04/14/2025 6:30 PM CDT Office Visit [facility] Medical [facility] - Family Medicine [facility] #2 [place] [address] Marco Woods MD #2 [facility] [address] [place] [address] 05/11/2025 9:45 AM CDT Office Visit [facility] Endocrinology [facility] #2 [place] [address] Kirsten Niño MD #[address] [address] 06/19/2025 10:00 AM CDT Office Visit [facility] - Pulmonology & Sleep Medicine [facility] #2 [place] [address] Michelle Mendes APRN, TAG MACHINE OPERATOR #2 [facility] [address] [place] [address] documented as of this encounter Visit Diagnoses Not on filedocumented in this encounter Additional Health Concerns Assessment Noted Time PHQ-9 Depression Total Score: 18 024 10:00 AM STAGE HAND documented as of this encounter Care Teams Cattle Dehorner Relationship Specialty Start Date End Date Marco Woods MD #[address] [address] PCP - General Family Medicine 11/22/17 Kirsten Niño MD #[address] [address] Consulting Physician Endocrinology 07/17/22 Chin Burrows MD #[address] [place] [address] Consulting Physician General Surgery 11/22/22 Michelle Mendes APRN, TAG MACHINE OPERATOR #2 [facility] [address] [place] [address] Nurse Practitioner Advanced Practice Nurse 08/14/22 Chantelle Nix APRN, TAG MACHINE OPERATOR #2 [place] [address] Nurse Practitioner Advanced Practice Nurse 02/19/24 documented as of this encounter
--- OUTSIDE RECORDS SUMMARY | 2025-03-30 08:25 | XMS_ITS | Encounter Summary ---
Author Organization [facility] Address [address] [place] [address] Phone Care Team Providers Care Employee Benefits Attorney Name Role Phone Marco Woods MD Primary Care Provider Kirsten Niño MD Unavailable Chin Burrows MD Unavailable Michelle Mednes APRN, BUILDING MAINTENANCE WORKER Unavailable Chantelle Nix RESTAURANT MANAGEMENT INTERNSHIP, BUILDING MAINTENANCE WORKER Unavailable Reason for Visit * Reason Comments Medication Refill Encounter Details Date Type Department Care Team (Late st Contact Info) Description 01/01/2024 Refill [facility] - Family Medicine - [place] [address] [place] [phone] Marco Woods MD [id number] [address] Medication Refill Social History Tobacco Use Types Packs/Day Years Used Date Smoking Tobacco: Never Smokeless Tobacco: Never Alcohol Use Standard Drinks/Week Comments Not Currently 0 (1 standard drink = 0.6 oz pur e alcohol) [facility] Utilities Answer Date Recorded In the past 12 months has e electric, gas, oil, or water company threatened to shut off services in your home? Patient declined 11/28/2023 Social Connection and Isolation Panel Answer Date Recorded In a typical week, how many times do you talk on the phone with family, friends, or neighbors? Patient declined 11/28/2023 How often do you get togethe r with friends or relatives? Patient declined 11/28/2023 How often do you attend caodaism or baptism serv ices? Patient declined 11/28/2023 Do you [...] 18 10/24 [facility] - Occupational Stress Questionnaire Answer Date [...] Sex Assigned at Female 11/22/2023 11:58 AM WARDROBE ASSISTANT Legal Sex Female 11:34 PM CDT Gender Identity Female 11/22/2023 11:58 AM WARDROBE ASSISTANT Sexual Orientation Not on file Occupation Industry Job Start Date Job End Date disabled Not on file Not on file Not on file documented as of this encounter Miscellaneous Notes * Telephone Encounter - Amada Orozco RN - 01/01/2024 2:40 PM CDT gned Yesterday (12/31/2023): Zyvacyukdyy-Tdebgdqig-Uwugwj (Trelegy Ellipta) 100-62.5-25 MCG/ACT AEROSOL POWDER, BREATH ACTIVATED Sig: take 1 Puff by inhalation daily. Disp: 60 Each Refills: 3 Signed by: Michelle Mendes APRN, CNP documented in this encounter Plan of Treatment Upcoming Encounters Date Type Department Care Team (Late st Contact Info) Description 04/02/2025 2:30 PM CD[address] [facility] [place] [address] Marco Woods MD #[address] [facility] [address] [place] [address] Discharge Disposition: Discharged to home or Selfcare 04/14/2025 6:30 PM CDT [facility] - [place] #2 [place] [address] Marco Woods MD #[address] [place] [address] 05/11/2025 9:45 AM CDT Office Visit [facility] Medical [facility] - Endocrinology - [place] #2 [place] [address] Kirsten Niño MD #[address] [place] [address] 06/19/2025 10:00 AM CDT Office Visit [facility] Medical [facility] - Pulmonology & Sleep Medicine [facility] #2 [place] [address] Michelle Mendes APRN, BUILDING MAINTENANCE WORKER #[address] [facility] [address] [place] [address] documented as of this encounter Visit Diagnoses Not on filedocumented in this encounter Additional Health Concerns Infection Onset Date Last Indicated Resolved Time COVID - 19 06/25/2024 06/25/2024 06/25/2024 6:36 PM CDT Assessment Noted Time PHQ-9 Depression Total Score: 18 024 10:00 AM WARDROBE ASSISTANT documented as of this encounter Care Teams Employee Benefits Attorney Relationship Specialty Start Date End Date Marco Woods MD #[address] [address] PCP - General Family Medicine 11/22/17 Kirsten Niño MD #[address] [address] Consulting Physician Endocrinology 07/17/22 Chin Burrows MD #[address] [address] Consulting Physician General Surgery 11/22/22 Michelle Mendes APRN, BUILDING MAINTENANCE WORKER #[address] [facility] [address] [place] [address] Nurse Practitioner Advanced Practice Nurse 08/14/22 Chantelle Nix APRN, BUILDING MAINTENANCE WORKER #2 [place] [address] Nurse Practitioner Advanced Practice Nurse 02/19/24 documented as of this encounter
--- OUTSIDE RECORDS SUMMARY | 2025-03-30 08:25 | XMS_ITS | Encounter Summary ---
Author Organization [facility] Address [address] [place] [address] Phone Care Team Providers Care Church Musician Name Role Phone Marco Woods MD Primary Care Provider [phone] Kirsten Niño MD Unavailable Chin Burrows MD Unavailable Michelle Mendse APRN, DIGITAL MANAGER Unavailable Chantelle Nix LOADER UNLOADER, DIGITAL MANAGER Unavailable Reason for Visit * Reason Comments Medication Refill Encounter Details Date Type Department Care Team (Late st Contact Info) Description 03/30/2025 Refill [facility] Medical Group - Family Medicine - [place] [address] [place] [phone] Marco Woods MD #[address] [address] Medication Refill Social History Tobacco Use Types Packs/Day Years Used Date Smoking Tobacco: Never Smokeless Tobacco: Never Alcohol Use Standard Drinks/Week Comments Not Currently 0 (1 standard drink = 0.6 oz pur e alcohol) [facility] Utilities Answer Date Recorded In the past [...] How often do you attend jewish or samaritan serv ices? Patient declined 06/25/2024 Do you [...] Total Score - Questions 1-9 18 10/24 [facility] - Occupational Stress Questionnaire Answer Date [...] skilled nursing (including now)? Patient declined 11/28/2023 Housing Stability [...] any time in the past 12 m [facility], were you homeless or living in a skilled nursing (including now)? Patient unable to answer 06/25/2024 Education Answer Date Recorded What is the highest level of school you have completed or the highest degree you have received? 12th grade 04/03/2023 Sexually Active Control Partners Comments Not Currently Comments No Sex and Gender Information Value Date Recorded Sex Assigned at Female 11/22/2023 11:58 AM MOBILE SOLUTIONS ARCHITECT Legal Sex Female 11:34 PM CDT Gender Identity Female 11/22/2023 11:58 AM MOBILE SOLUTIONS ARCHITECT Sexual Orientation Not on file Occupation Industry Job Start Date Job End Date disabled Not on file Not on file Not on file documented as of this encounter Plan of Treatment Upcoming Encounters Date Type Department Care Team (Late st Contact Info) Description 04/02/2025 2:30 PM CDT [facility] 2 [place] [address] Marco Woods MD #[address] [place] [address] Discharge Disposition: Discharged to home or Selfcare 04/14/2025 6:30 PM CDT Office Visit [facility] Medical [facility] Family Medicine - [place] #2 [facility] [place] [address] Marco Woods MD #2 [facility] [address] [place] [address] 05/11/2025 9:45 AM CDT Office Visit [facility] Endocrinology [facility] #2 [place] [address] Kirsten Niño MD #[address] [place] [address] 06/19/2025 10:00 AM CDT Office Visit [facility] - Pulmonology & Sleep Medicine [facility] #2 [place] [address] Michelle Mendes APRN, DIGITAL MANAGER #2 [facility] [address] [place] [address] documented as of this encounter Visit Diagnoses Not on filedocumented in this encounter Additional Health Concerns Assessment Noted Time PHQ-9 Depression Total Score: 18 024 10:00 AM MOBILE SOLUTIONS ARCHITECT documented as of this encounter Care Teams Church Musician Relationship Specialty Start Date End Date Marco Woods MD #2 [facility] [address] [place] [address] PCP - General Family Medicine 11/22/17 Kirsten Niño MD #[address] [address] Consulting Physician Endocrinology 07/17/22 Chin Burrows MD #[address] [address] [phone] Consulting Physician General Surgery 11/22/22 Michelle Mendes APRN, DIGITAL MANAGER #[address] [address] [address] Nurse Practitioner Advanced Practice Nurse 08/14/22 Chantelle Nix APRN, DIGITAL MANAGER #2 [place] [address] Nurse Practitioner Advanced Practice Nurse 02/19/24 documented as of this encounter
--- OUTSIDE RECORDS SUMMARY | 2025-03-30 08:25 | XMS_ITS | Encounter Summary ---
Author Organization [facility] Address [address] [place] [address] Phone Care Team Providers Care Grinder Operator Name Role Phone Marco Woods MD Primary Care Provider [phone] Kirsten Niño MD Unavailable Chin Burrows MD Unavailable Michelle Mendes APRN, INSTRUMENT REPAIR SPECIALIST Unavailable Chantelle Nix APRN, INSTRUMENT REPAIR SPECIALIST Unavailable Reason for Visit * Reason Comments Medication Refill Encounter Details Date Type Department Care Team (Late st Contact Info) Description 10/03/2024 Refill [facility] - Gastroenterology - [place] #2 [place] [address] Chantelle Nix APRN, INSTRUMENT REPAIR SPECIALIST #2 [place] [address] Medication Refill Social History Tobacco Use Types Packs/Day Years Used Date Smoking Tobacco: Never Smokeless Tobacco: Never Alcohol Use Standard Drinks/Week Comments Not Currently 0 (1 standard drink = 0.6 oz pur e alcohol) [facility] Utilities Answer Date Recorded In the past [...] declined 06/25/2024 How often do you attend caodaism or jainism serv ices? Patient declined 06/25/2024 Do you [...] Total Score - Questions 1-9 18 10/24 [facility] of Occupat ional Health - Occupational Stress [...] time in the past 12 m [facility], were you homeless or living in a penitentiary (including now)? Patient unable to answer 06/25/2024 Education Answer Date Recorded What is the highest level of school you have completed or the highest degree you have received? 12th grade 04/03/2023 Sexually Active Control Partners Comments Not Currently Comments No Sex and Gender Information Value Date Recorded Sex Assigned at Female 11/22/2023 11:58 AM FOLDING MACHINE FEEDER Legal Sex Female 11:34 PM CDT Gender Identity Female 11/22/2023 11:58 AM FOLDING MACHINE FEEDER Sexual Orientation Not on file Occupation Industry [...] Dept Phone 10/31/2024 11:15 AM Kirsten Niño [facility] Endocrinology [facility] [phone] ING MACHINE FEEDER * Telephone Encounter - Denise Honeycutt RN - 10/06/2024 9:16 AM FOLDING MACHINE FEEDER Medication refilled and signed per [facility] chronic medication standing order for pediatric and adult patients. ING MACHINE FEEDER documented in this encounter Plan of Treatment Upcoming Encounters Date Type Department Care Team (Late st Contact Info) Description 04/02/2025 2:30 PM CDT EMG [facility] Neurosciences Clinic 2 [place] [address] Marco Woods MD #[address] [address] Discharge Disposition: Discharged to home or Selfcare 04/14/2025 6:30 PM CDT Office Visit [facility] Family Medicine - [place] #2 [place] [address] Marco Woods MD #2 [facility] [address] [place] [address] 05/11/2025 9:45 AM CDT Office Visit [facility] - Endocrinology - [place] #2 [place] [address] Kirsten Niño MD #2 [facility] [address] [place] [address] 06/19/2025 10:00 AM CDT Office Visit [facility] - Pulmonology & Sleep Medicine - [place] #2 [place] [address] Michelle Mendes APRN, INSTRUMENT REPAIR SPECIALIST #2 [facility] [address] [place] [address] documented as of this encounter Visit Diagnoses Diagnosis Chronic constipation Unspecified constipation documented in this encounter Additional Health Concerns Assessment Noted Time PHQ-9 Depression Total Score: 18 024 10:00 AM FOLDING MACHINE FEEDER documented as of this encounter Care Teams Grinder Operator Relationship Specialty Start Date End Date Marco Woods MD #[address] [address] PCP - General Family Medicine 11/22/17 Kirsten Niño MD #[address] [place] [address] Consulting Physician Endocrinology 07/17/22 Chin Burrwos MD #[address] [place] [address] Consulting Physician General Surgery 11/22/22 Michelle Mendes APRN, INSTRUMENT REPAIR SPECIALIST #[address] [place] [address] [address] Nurse Practitioner Advanced Practice Nurse 08/14/22 Chantelle Nix APRN, INSTRUMENT REPAIR SPECIALIST #[address] [place] [address] Nurse Practitioner Advanced Practice Nurse 02/19/24 documented as of this encounter
--- OUTSIDE RECORDS SUMMARY | 2025-03-30 08:25 | XMS_ITS | Encounter Summary ---
Author Organization [facility] Address [address] [place] [address] Phone Care Team Providers Care Satellite Instruction Facilitator Name Role Phone Marco Woods MD Primary Care Provider [phone] Kirsten Niño MD Unavailable Chin Burrows MD Unavailable [phone] Kelsea Root RN Unavailable Unavailable Michelle Mendes APRN, DRAG SAWYER Unavailable Chantelle Nix APRN, DRAG SAWYER Unavailable Reason for Visit * Reason Comments Medication Refill Encounter Details Date Type Department Care Team (Late st Contact Info) Description 10/16/2022 Refill [facility] - Family Medicine [facility] #2 [place] [address] Marco Woods MD #[id number] [address] Medication Refill Social History Tobacco Use Types Packs/Day Years Used Date Smoking Tobacco: Never Smokeless Tobacco: Never Alcohol Use Standard Drinks/Week Comments Not Currently 0 (1 standard drink = 0.6 oz pur e alcohol) Sexually Active Control Partners Comments Not Currently Comments No Sex and Gender Information Value Date Recorded Sex Assigned at Female 11/22/2023 11:58 AM BAND TOP MAKER Legal Sex Female 11:34 PM CDT Gender Identity Female 11/22/2023 11:58 AM BAND TOP MAKER Sexual Orientation Not on file Occupation Industry Job Start Date Job End Date disabled Not on file Not on file Not on file COVID-19 Exposure Response Date Recorded In the last 10 days, have yo u been in contact with someone who was confirmed or suspected to have Coronavirus/COVID-19? No / Unsure 10/11/2022 9:23 AM BAND TOP MAKER documented as of this encounter Miscellaneous Notes [...] Dept 08/29/22 Office Visit Ronald Shaffer APRN, DRAG SAWYER [facility] 07/12/22 Office Visit Jany Hernandez, SUSI [facility] 06/23/22 Office Visit Marco Woods MD [facility] 05/19/22 Office Visit Marco Woods MD [facility] 01/10/22 Office Visit Marco Woods MD [facility] Showing recent visits within past 365 days and meeting all other requirements Future Appointments Date Type Provider Dept 10/25/22 Appointment Marco Woods MD [facility] Showing future appointments within next 90 days and meeting all other requirements TOP MAKER documented in this encounter Plan of Treatment Upcoming Encounters Date Type Department Care Team (Late st Contact Info) Description 04/02/2025 2:30 PM CDT [facility] [address] [place], [place] [address] Marco Woods MD #[address] [facility] [address] [place] [address] Discharge Disposition: Discharged to home or Selfcare 04/14/2025 6:30 PM CDT Office Visit [facility] - Family Medicine - [place] #2 [place] [address] Marco Woods MD #[address] [address] 05/11/2025 9:45 AM CDT [facility] [place] #2 [place] [address] Kirsten Niño MD #[address] [address] 06/19/2025 10:00 AM CDT Office [facility] - Pulmonology & Sleep Medicine [facility] #2 [place] [address] Michelle Mendes APRN, DRAG SAWYER #[address] [facility] [address] [place] [address] documented as of this encounter Visit Diagnoses Not on filedocumented in this encounter Additional Health Concerns Infection Onset Date Last Indicated Resolved Time COVID - 19 11/20/2022 11/20/2022 11/24/2022 8:51 AM BAND TOP MAKER COVID - 19 12/31/2022 12/31/2022 01/10/2023 12:1 8 AM CDT COVID - 19 Confirmed 12/31/2022 12/31/2022 023 12:17 AM CDT COVID - 19 06/01/2023 06/01/2023 06/01/2023 8:16 AM CDT COVID - 19 11/01/2023 11/01/2023 11/11/2023 12:1 6 AM BAND TOP MAKER COVID - 19 06/25/2024 06/25/2024 06/25/2024 6:36 PM CDT Assessment Noted Time PHQ-9 Depression Total Score: 0 11/22/19 10:00 AM BAND TOP MAKER documented as of this encounter Care Teams Satellite Instruction Facilitator Relationship Specialty Start Date End Date Marco Woods MD #[address] [facility] [address] [place] [address] PCP - General Family Medicine 11/22/17 Kirsten Niño MD #[address] [facility] [address] [place] [address] Consulting Physician Endocrinology 07/17/22 Chin Burrows MD #[address] [facility] [address] [place] [address] Consulting Physician General Surgery 11/22/22 Kelsae Root RN [place] Tool Machine Set Up Operator 06/15/23 08/26/23 Michelle Mendes APRN, DRAG SAWYER #[address] [facility] [address] [place] [address] Nurse Practitioner Advanced Practice Nurse 08/14/22 Chantelle Nix APRN, DRAG SAWYER #2 [place] [address] Nurse Practitioner Advanced Practice Nurse 02/19/24 documented as of this encounter
--- OUTSIDE RECORDS SUMMARY | 2025-03-30 08:25 | XMS_ITS | Encounter Summary ---
Author Organization [facility] Address [address] [place] [address] Phone Care Team Providers Care Manager Manufacturing Name Role Phone Marco Woods MD Primary Care Provider Kirsten Niño MD Unavailable Chin Burrows MD Unavailable Michelle Mendes APRN, SALES ASSISTANT INSTITUTIONAL SALES Unavailable [phone] Chantelle Nix PHOTOGRAPHY MANAGER, SALES ASSISTANT INSTITUTIONAL SALES Unavailable Reason for Visit * Reason Comments Medication Refill Encounter Details Date Type Department Care Team (Late st Contact Info) Description 12/26/2023 Refill [facility] - Family Medicine - [place] #[address] [place] [address] Marco Woods MD #[address] [address] Medication Refill Social History Tobacco Use Types Packs/Day Years Used Date Smoking Tobacco: Never Smokeless Tobacco: Never Alcohol Use Standard Drinks/Week Comments Not Currently 0 (1 standard drink = 0.6 oz pur e alcohol) [facility] Utilities Answer Date Recorded In [...] declined 11/28/2023 How often do you attend holiness or denominational serv ices? Patient declined 11/28/2023 Do you belong to any clubs o r organizations such as holiness groups, unions, fraternal or athletic groups, or [...] Questions 1-9 18 10/24 [facility] - Occupational Stress Questionnaire Answer [...] place to sleep or slept in a residential (including now)? Patient declined 11/28/2023 Education Answer Date Recorded What is the highest level of school you have completed or the highest degree you have received? 12th grade 04/03/2023 Sexually Active Control Partners Comments Not Currently Comments No Sex and Gender Information Value Date Recorded Sex Assigned at Female 11/22/2023 11:58 AM SOUND EFFECTS TECHNICIAN Legal Sex Female 11:34 PM CDT Gender Identity Female 11/22/2023 11:58 AM SOUND EFFECTS TECHNICIAN Sexual Orientation Not on file Occupation Industry Job Start Date Job End Date disabled Not on file Not on file Not on file documented as of this encounter Miscellaneous Notes * Telephone Encounter - Amada Orozco RN - 12/27/2023 11:05 AM CST Pt should be getting this from psych. Dr Galeana is a psychiatrist. D EFFECTS TECHNICIAN * Telephone Encounter - Amada Orozco RN - 12/27/2023 11:02 AM CST Images from the original note were not included. [employer] Dispensed Days Supply Quantity Provider Pharmacy LITHIUM CARBONATE ER 300 MG TBCR 11/29/2023 28 56 Tablet Maria Antonia Galeana MD [facility] -Alt... LITHIUM CARBONATE ER 300 MG TBCR 11/06/2023 28 56 Tablet Maria Antonia Galeana MD [facility] -Alt... D EFFECTS TECHNICIAN documented in this encounter Plan of Treatment Upcoming Encounters Date Type Department Care Team (Late st Contact Info) Description 04/02/2025 2:30 PM CDT EMG [facility] Neurosciences Clinic 2 [place] [address] Marco Woods MD #2 [facility] [address] [place] [address] Discharge Disposition: Discharged to home or Selfcare 04/14/2025 6:30 PM CDT Office Visit [facility] - Family Medicine - [place] #2 [place] [address] Marco Woods MD #2 [facility] [address] [place] [address] 05/11/2025 9:45 AM CDT Office Visit [facility] - Endocrinology - [place] #2 [place] [address] Kirsten Niño MD #2 [facility] [address] [place] [address] 06/19/2025 10:00 AM CDT Office Visit [facility] - Pulmonology & Sleep Medicine - [place] #2 [place] [address] Michelle Mendes APRN, SALES ASSISTANT INSTITUTIONAL SALES #2 [facility] [address] [place] [address] documented as of this encounter Visit Diagnoses Not on filedocumented in this encounter Additional Health Concerns Infection Onset Date Last Indicated Resolved Time COVID - 19 06/25/2024 06/25/2024 06/25/2024 6:36 PM CDT Assessment Noted Time PHQ-9 Depression Total Score: 18 024 10:00 AM SOUND EFFECTS TECHNICIAN documented as of this encounter Care Teams Manager Manufacturing Relationship Specialty Start Date End Date Marco Woods MD #2 [facility] [address] [place] [address] PCP - General Family Medicine 11/22/17 Kirsten Nñio MD #2 [facility] [address] [place] [address] Consulting Physician Endocrinology 07/17/22 Chin Burrows MD #2 [facility] [address] [place] [address] Consulting Physician General Surgery 11/22/22 Michelle Mendes APRN, SALES ASSISTANT INSTITUTIONAL SALES #2 [facility] [address] [place] [address] Nurse Practitioner Advanced Practice Nurse 08/14/22 Chantelle Nix APRN, SALES ASSISTANT INSTITUTIONAL SALES #2 [place] [address] Nurse Practitioner Advanced Practice Nurse 02/19/24 documented as of this encounter
--- OUTSIDE RECORDS SUMMARY | 2025-03-30 08:25 | XMS_ITS | Encounter Summary ---
Author Organization [facility] Address [address] [place] [address] Phone Care Team Providers Care And Taxi Instructor Bus Trolley Name Role Phone Marco Woods MD Primary Care Provider Kirsten Niño MD Unavailable Chin Burrows MD Unavailable Kelsea Root RN Unavailable Unavailable Michelle Mendes APRN, DEHAIRING MACHINE TENDER Unavailable Chantelle Nix APRN, DEHAIRING MACHINE TENDER Unavailable Reason for Visit * Reason Onset Date Comments Medication Management 11/26/2022 Would like pain medication Encounter Details Date Type Department Care Team (Late st Contact Info) Description 11/26/2022 [facility]phone [facility] [address] [place] [address] Marco Woods MD #2 [facility] [place] [address] Medication Management (Would like pain medication) Social History Tobacco Use Types Packs/Day Years Used Date Smoking Tobacco: Never Smokeless Tobacco: Never Alcohol Use Standard Drinks/Week Comments Not Currently 0 (1 standard drink = 0.6 oz pur e alcohol) Sexually Active Control Partners Comments Not Currently Comments No Sex and Gender Information Value Date Recorded Sex Assigned at Female 11/22/2023 11:58 AM JOURNEYMAN PRESSMAN Legal Sex Female 11:34 PM CDT Gender Identity Female 11/22/2023 11:58 AM JOURNEYMAN PRESSMAN Sexual Orientation Not on file Occupation Industry Job Start Date Job End Date disabled Not on file Not on file Not on file COVID-19 Exposure Response Date Recorded In the last 10 days, have ambar u been in contact with someone who was confirmed or suspected to have Coronavirus/COVID-19? No / Unsure 11/29/2022 3:20 PM JOURNEYMAN PRESSMAN documented as of this encounter Miscellaneous Notes [...] before nurse could obtain any further information. NEYMAN PRESSMAN documented in this encounter Plan of Treatment Upcoming Encounters Date Type Department Care Team (Late st Contact Info) Description 04/02/2025 2:30 PM CDT EMG [facility] MOB Neurosciences Clinic 2 [place] [address] Marco Woods MD #[address] [address] Discharge Disposition: Discharged to home or Selfcare 04/14/2025 6:30 PM CDT Office Visit [facility] - Family [facility] #2 [place] [address] Marco Woods MD #[address] [address] 05/11/2025 9:45 AM CDT [facility] - [facility]ocr[facility]ology - [place] #2 [place] [address] Kirsten Niño MD #2 [facility] [address] [place] [address] 06/19/2025 10:00 AM CDT Office Visit [facility] - Pulmonology & Sleep [facility] #2 [place] [address] Michelle Mendes APRN, DEHAIRING MACHINE TENDER #2 [facility] [address] [place] [address] documented as of this encounter Visit Diagnoses Not on filedocumented in this encounter Additional Health Concerns Infection Onset Date Last Indicated Resolved Time COVID - 19 12/31/2022 12/31/2022 01/10/2023 12:1 8 AM CDT COVID - 19 Confirmed 12/31/2022 12/31/2022 023 12:17 AM CDT COVID - 19 06/01/2023 06/01/2023 06/01/2023 8:16 AM CDT COVID - 19 11/01/2023 11/01/2023 11/11/2023 12:1 6 AM JOURNEYMAN PRESSMAN COVID - 19 06/25/2024 06/25/2024 06/25/2024 6:36 PM CDT Assessment Noted Time PHQ-9 Depression Total Score: 0 11/22/19 18 10:00 AM JOURNEYMAN PRESSMAN documented as of this encounter Care Teams And Taxi Instructor Bus Trolley Relationship Specialty Start Date End Date Marco Woods MD #2 [facility] [address] [place] [address] PCP - General Family Medicine 11/22/17 Kirsten Niño MD #2 [facility] [address] [place] [address] Consulting Physician Endocrinology 07/17/22 Chin Burrows MD #2 [facility] [address] [place] [address] Consulting Physician General Surgery 11/22/22 Kelsea Root, RN [place] Engineering Illustrator 06/15/23 08/26/23 Michelle Mendes APRN, DEHAIRING MACHINE TENDER #2 [facility] [address] [place] [address] Nurse Practitioner Advanced Practice Nurse 08/14/22 Chantelle Nix APRN, DEHAIRING MACHINE TENDER #2 [place] [address] Nurse Practitioner Advanced Practice Nurse 02/19/24 documented as of this encounter
--- OUTSIDE RECORDS SUMMARY | 2025-03-30 08:25 | XMS_ITS | Encounter Summary ---
Author Organization [facility] Address [address] [place] [address] Phone Care Team Providers Care Cognos Bi Developer Name Role Phone Marco Woods MD Primary Care Provider Kirsten Niño MD Unavailable Chin Burrows MD Unavailable Michelle Mendes APRN, JEWEL SORTER Unavailable Chantelle Nix APRN, JEWEL SORTER Unavailable Reason for Visit * Reason Comments Medication Refill Encounter Details Date Type Department Care Team (Late st Contact Info) Description 07/07/2024 Refill [facility] Medical Group - Gastroenterology - [place] #2 [place] [address] Chantelle Nix APRN, JEWEL SORTER #2 [place] [address] Medication Refill Social History Tobacco Use Types Packs/Day Years Used Date Smoking Tobacco: Never Smokeless Tobacco: Never Alcohol Use Standard Drinks/Week Comments Not Currently 0 (1 standard drink = 0.6 oz pur e alcohol) [facility] Utilities Answer Date Recorded In [...] declined 06/25/2024 How often do you attend yarsani or tenriism serv ices? Patient declined 06/25/2024 Do you belong to any clubs o r organizations such as yarsani groups, unions, fraternal or athletic groups, or [...] Total Score - Questions 1-9 18 10/24 [facility] of Occupat ional Health - Occupational Stress [...] a halfway (including now)? Patient declined 11/28/2023 Housing Stability [...] any time in the past 12 m [facility], were you homeless or living in a halfway (including now)? Patient unable to answer 06/25/2024 Education Answer Date Recorded What is the highest level of school you have completed or the highest degree you have received? 12th grade 04/03/2023 Sexually Active Control Partners Comments Not Currently Comments No Sex and Gender Information Value Date Recorded Sex Assigned at Female 11/22/2023 11:58 AM YARN DUMPER Legal Sex Female 11:34 PM CDT Gender Identity Female 11/22/2023 11:58 AM YARN DUMPER Sexual Orientation Not on file Occupation Industry [...] Info) Description 04/02/2025 2:30 PM CDT EMG [facility] Neurosciences Clinic 2 [place] [address] Marco Woods MD #2 [facility] [address] [place] [address] Discharge Disposition: Discharged to home or Selfcare 04/14/2025 6:30 PM CDT Office Visit [facility] - Family Medicine - [place] #2 [place] [address] Marco Woods MD #2 [facility] [address] [place] [address] 05/11/2025 9:45 AM CDT Office Visit [facility] - Endocrinology - [place] #2 [place] [address] Kirsten Niño MD #2 [facility] [address] [place] [address] 06/19/2025 10:00 AM CDT Office Visit [facility] - Pulmonology & Sleep Medicine - [place] #2 [place] [address] Michelle Mendes APRN, DREW #2 [facility] [address] [place] [address] documented as of this encounter Visit Diagnoses Diagnosis Chronic constipation Unspecified constipation documented in this encounter Additional Health Concerns Assessment Noted Time PHQ-9 Depression Total Score: 18 024 10:00 AM YARN DUMPER documented as of this encounter Care Teams Cognos Bi Developer Relationship Specialty Start Date End Date Marco Woods MD #2 [facility] [address] [place] [address] PCP - General Family Medicine 11/22/17 Kirsten Niño MD #2 [facility] [address] [place] [address] Consulting Physician Endocrinology 07/17/22 Chin Burrows MD #2 [facility] [address] [place] [address] Consulting Physician General Surgery 11/22/22 Michelle Mendes APRN, JEWEL SORTER #2 [facility] [address] [place] [address] Nurse Practitioner Advanced Practice Nurse 08/14/22 Chantelle Nix APRN, JEWEL SORTER #2 [place] [address] Nurse Practitioner Advanced Practice Nurse 02/19/24 documented as of this encounter
--- OUTSIDE RECORDS SUMMARY | 2025-03-30 08:25 | XMS_ITS | Encounter Summary ---
Author Organization [facility] Address [address] [place] [address] Phone Care Team Providers Care Hollow Handle Knife Assembler Name Role Phone Marco Woods MD Primary Care Provider Kirsten Niño MD Unavailable Chin Burrows MD Unavailable [phone] Kelsea Root RN Unavailable Unavailable Michelle Mendes APRN, APPELLATE LAW CLERK Unavailable [phone] Chantelle Nix APRN, APPELLATE LAW CLERK Unavailable Reason for Visit * Reason Comments Medication Refill Encounter Details Date Type Department Care Team (Late st Contact Info) Description 10/17/2022 [facility]ill [facility] #2 [place] [id number] Marco Woods MD [address] [address] Medication Refill Social History Tobacco Use Types Packs/Day Years Used Date Smoking Tobacco: Never Smokeless Tobacco: Never Alcohol Use Standard Drinks/Week Comments Not Currently 0 (1 standard drink = 0.6 oz pur e alcohol) Sexually Active Control Partners Comments Not Currently Comments No Sex and Gender Information Value Date Recorded Sex Assigned at Female 11/22/2023 11:58 AM SPEECH THERAPY ASSISTANT Legal Sex Female 11:34 PM CDT Gender Identity Female 11/22/2023 11:58 AM SPEECH THERAPY ASSISTANT Sexual Orientation Not on file Occupation Industry Job Start Date Job End Date disabled Not on file Not on file Not on file COVID-19 Exposure Response Date Recorded In the last 10 days, have yo u been in contact with someone who was confirmed or suspected to have Coronavirus/COVID-19? No / Unsure 10/11/2022 9:23 AM SPEECH THERAPY ASSISTANT documented as of this encounter Miscellaneous Notes * Telephone Encounter - Maria Luz Sierra RN - 10/18/2022 8:37 AM CST duplicate [place] THERAPY ASSISTANT documented in this encounter Plan of Treatment Upcoming Encounters Date Type Department Care Team (Late st Contact Info) Description 04/02/2025 2:30 PM CDT [facility] 2 [place] [address] Marco Woods MD #[address] [address] Discharge Disposition: Discharged to home or Selfcare 04/14/2025 6:30 PM CDT [facility] - Family Medicine [facility] #2 [place] [address] Marco Woods MD #[address] [address] 05/11/2025 9:45 AM CDT Office Visit [facility] - Endocrinology - [place] #2 [place] [address] Kirsten Niño MD #[address] [address] 06/19/2025 10:00 AM CDT Office Visit [facility] - Pulmonology & Sleep Medicine - [place] #2 [place] [address] Michelle Mendes APRN, APPELLATE LAW CLERK #2 [facility] [address] [place] [address] documented as of this encounter Visit Diagnoses Not on filedocumented in this encounter Additional Health Concerns Infection Onset Date Last Indicated Resolved Time COVID - 19 11/20/2022 11/20/2022 11/24/2022 8:51 AM SPEECH THERAPY ASSISTANT COVID - 19 12/31/2022 12/31/2022 01/10/2023 12:1 8 AM CDT COVID - 19 Confirmed 12/31/2022 12/31/2022 023 12:17 AM CDT COVID - 19 06/01/2023 06/01/2023 06/01/2023 8:16 AM CDT COVID - 19 11/01/2023 11/01/2023 11/11/2023 12:1 6 AM SPEECH THERAPY ASSISTANT COVID - 19 06/25/2024 06/25/2024 06/25/2024 6:36 PM CDT Assessment Noted Time PHQ-9 Depression Total Score: 0 11/22/19 10:00 AM SPEECH THERAPY ASSISTANT documented as of this encounter Care Teams Hollow Handle Knife Assembler Relationship Specialty Start Date End Date Marco Woods MD #2 [facility] [address] [place] [address] PCP - General Family Medicine 11/22/17 Kirsten Niño MD #2 [facility] [address] [place] [address] Consulting Physician Endocrinology 07/17/22 Chin Burrows MD #2 [facility] [address] [place] [address] Consulting Physician General Surgery 11/22/22 Kelsea Root RN [place] Drill Setup Operator 06/15/23 08/26/23 Michelle Mendes APRN, APPELLATE LAW CLERK #[address] [address] [address] Nurse Practitioner Advanced Practice Nurse 08/14/22 Chantelle Nix APRN, APPELLATE LAW CLERK #[address] [place] [address] Nurse Practitioner Advanced Practice Nurse 02/19/24 documented as of this encounter
--- OUTSIDE RECORDS SUMMARY | 2025-03-30 08:25 | XMS_ITS | Encounter Summary ---
Author Organization [facility] Address [address] [place] [address] Phone Care Team Providers Care Dairy Inspector Name Role Phone Marco Woods MD Primary Care Provider Kirsten Niño MD Unavailable Chin Burrows MD Unavailable Kelsea Root RN Unavailable Unavailable Michelle Mendes APRN, EDITORIAL DIRECTOR Unavailable Chantelle Nix APRN, EDITORIAL DIRECTOR Unavailable Reason for Visit * Reason Comments Medication Refill Encounter Details Date Type Department Care Team (Late st Contact Info) Description 12/16/2022 Refill [facility] [address] [place] [address] Marco Woods MD #2 [facility] [address] [place] [address] Medication Refill Social History Tobacco Use Types Packs/Day Years Used Date Smoking Tobacco: Never Smokeless Tobacco: Never Alcohol Use Standard Drinks/Week Comments Not Currently 0 (1 standard drink = 0.6 oz pur e alcohol) Sexually Active Control Partners Comments Not Currently Comments No Sex and Gender Information Value Date Recorded Sex Assigned at Female 11/22/2023 11:58 AM EMBRYOLOGY PROFESSOR Legal Sex Female 11:34 PM CDT Gender Identity Female 11/22/2023 11:58 AM EMBRYOLOGY PROFESSOR Sexual Orientation Not on file Occupation Industry Job Start Date Job End Date disabled Not on file Not on file Not on file COVID-19 Exposure Response Date Recorded In the last 10 days, have yo u been in contact with someone who was confirmed or suspected to have Coronavirus/COVID-19? No / Unsure 12/18/2022 9:05 AM EMBRYOLOGY PROFESSOR documented as of this encounter Miscellaneous Notes * Telephone Encounter - Brooklyn Preciado, RN - 12/19/2022 9:23 AM CST Duplicate request. YOLOGY PROFESSOR * Telephone Encounter - Celia Valles RN - 12/18/2022 2:00 PM EMBRYOLOGY PROFESSOR duplicate YOLOGY PROFESSOR documented in this encounter Plan of Treatment Upcoming Encounters Date Type Department Care Team (Late st Contact Info) Description 04/02/2025 2:30 PM CDT EM[facility] 2 [place] [address] Marco Woods MD #[address] [address] Discharge Disposition: Discharged to home or Selfcare 04/14/2025 6:30 PM CDT Office Visit [facility] Medical Group - Family Medicine - [place] #2 [place] [address] Marco Woods MD #2 [facility] [address] [place] [address] 05/11/2025 9:45 AM CDT Office Visit [facility] Medical Group - Endocrinology - [place] #2 [place] [address] Kirsten Niño MD #[address] [place] [address] 06/19/2025 10:00 AM CDT Office Visit [facility] - Pulmonology & Sleep Medicine [facility] #2 [place] [address] Michelle Mendes APRN, EDITORIAL DIRECTOR #2 [facility] [address] [place] [address] documented as of this encounter Visit Diagnoses Diagnosis Dyspnea, unspecified type documented in this encounter Additional Health Concerns Infection Onset Date Last Indicated Resolved Time COVID - 19 12/31/2022 12/31/2022 01/10/2023 12:1 8 AM CDT COVID - 19 Confirmed 12/31/2022 12/31/2022 023 12:17 AM CDT COVID - 19 06/01/2023 06/01/2023 06/01/2023 8:16 AM CDT COVID - 19 11/01/2023 11/01/2023 11/11/2023 12:1 6 AM EMBRYOLOGY PROFESSOR COVID - 19 06/25/2024 06/25/2024 06/25/2024 6:36 PM CDT Assessment Noted Time PHQ-9 Depression Total Score: 0 11/22/19 18 10:00 AM EMBRYOLOGY PROFESSOR documented as of this encounter Care Teams Dairy Inspector Relationship Specialty Start Date End Date Marco Woods MD #2 [facility] [address] [place] [address] PCP - General Family Medicine 11/22/17 Kirsten Niño MD #2 [facility] [address] [place] [address] Consulting Physician Endocrinology 07/17/22 Chin Burrows MD #2 [facility] [address] [place] [address] Consulting Physician General Surgery 11/22/22 Kelsea Root, RN [place] Raw Hide Trimmer 06/15/23 08/26/23 Michelle Mendes APRN, EDITORIAL DIRECTOR #[address] [address] Nurse Practitioner Advanced Practice Nurse 08/14/22 Chantelle Nix APRN, EDITORIAL DIRECTOR #2 [place] [address] Nurse Practitioner Advanced Practice Nurse 02/19/24 documented as of this encounter
--- OUTSIDE RECORDS SUMMARY | 2025-03-30 08:25 | XMS_ITS | Encounter Summary ---
Author Organization [facility] Address [address] [place] [address] Phone Care Team Providers Care Forming Department Supervisor Name Role Phone Marco Woods MD Primary Care Provider [phone] Kirsten Niño MD Unavailable Chin Burrows MD Unavailable Kelsea Root RN Unavailable Unavailable Michelle Mendes APRN, SCAFFOLD SETTER Unavailable Chantelle Nix APRN, SCAFFOLD SETTER Unavailable Encounter Details Date Type Department Care Team (Late st Contact Info) Description 11/07/2022 [facility] 1 [place] [address] Chin Burrows MD #[address] [address] Pre-op testing (Primary Dx) Social History Tobacco Use Types Packs/Day Years Used Date Smoking Tobacco: Never Smokeless Tobacco: Never Alcohol Use Standard Drinks/Week Comments Not Currently 0 (1 standard drink = 0.6 oz pur e alcohol) Sexually Active Control Partners Comments Not Currently Comments No Sex and Gender Information Value Date Recorded Sex Assigned at Female 11/22/2023 11:58 AM KNURLING MACHINE TENDER Legal Sex Female 11:34 PM CDT Gender Identity Female 11/22/2023 11:58 AM KNURLING MACHINE TENDER Sexual Orientation Not on file Occupation Industry Job Start Date Job End Date disabled Not on file Not on file Not on file COVID-19 Exposure Response Date Recorded In the last 10 days, have ambar u been in contact with someone who was confirmed or suspected to have Coronavirus/COVID-19? No / Unsure 11/07/2022 1:33 PM KNURLING MACHINE TENDER documented as of this encounter Plan of Treatment Upcoming Encounters Date Type Department Care Team (Late st Contact Info) Description 04/02/2025 2:30 PM CDT EMG [facility] Neurosciences Clinic 2 [place] [address] Marco Woods MD #2 [facility] [address] [place] [address] Discharge Disposition: Discharged to home or Selfcare 04/14/2025 6:30 PM CDT [facility] - [place] #2 [place] [address] Marco Woods MD #[address] [address] 05/11/2025 9:45 AM CDT Office Visit [facility] - Endocrinology - [place] #2 [place] [address] Kirsten Niño MD #2 [facility] [address] [place] [address] 06/19/2025 10:00 AM CDT Office Visit [facility] Medical [facility] - Pulmonology & Sleep Medicine - [place] #2 [place] [address] Michelle Mendes APRN, SCAFFOLD SETTER #2 [facility] [address] [place] [address] documented as of this encounter Results * SARS-COV-2 BY MOLECULAR (11/13/2022 6:21 AM KNURLING MACHINE TENDER) SARSCOV2 NOT DETECTED (Referenc e Range for this test is Not Detected) [facility] LEACH ID NOW 11/13/2022 7:17 AM KNURLING MACHINE TENDER [facility] Comment:This test was perfor med by a MOLECULAR, NON-PCR method Other NASOPHARYNGEAL STRUCTURE / Unknown Non-Phlebotomy Collection / Unknown 11/13/2022 6:21 AM KNURLING MACHINE TENDER 11/13/2022 7:02 AM KNURLING MACHINE TENDER Narrative [facility] - 11/13/2022 7:17 AM KNURLING MACHINE TENDER This test has been authorized by the [...] information for Clinicians can be found at: https://www.fda.gov/media/244801/download Additional information for Patients can be found at: https://www.fda.gov/media/212047/download Chin Burrows MD MICROBIOLOGY - GENERA L ORDERABLES Final Result [facility] #1 [place] [address] documented in this encounter Visit Diagnoses Diagnosis Pre-op testing- Primary Preoperative examination, unspecified documented in this encounter Additional Health Concerns Infection Onset Date Last Indicated Resolved Time COVID - 19 11/20/2022 11/20/2022 11/24/2022 8:51 AM KNURLING MACHINE TENDER COVID - 19 12/31/2022 12/31/2022 01/10/2023 12:1 8 AM CDT COVID - 19 Confirmed 12/31/2022 12/31/20222 023 12:17 AM CDT COVID - 19 06/01/2023 06/01/2023 06/01/2023 8:16 AM CDT COVID - 19 11/01/2023 11/01/2023 11/11/2023 12:1 6 AM KNURLING MACHINE TENDER COVID - 06/25/2024 06/25/2024 06/25/2024 6:36 PM CDT Assessment Noted Time PHQ-9 Depression Total Score: 0 11/22/19 10:00 AM KNURLING MACHINE TENDER documented as of this encounter Care Teams Forming Department Supervisor Relationship Specialty Start Date End Date Marco Woods MD #2 [facility] [address] [place] [address] PCP - General Family Medicine 11/22/17 Kirsten Niño MD #2 [facility] [address] [place] [address] Consulting Physician Endocrinology 07/17/22 Chin Burrows MD #2 [facility] [address] [place] [address] Consulting Physician General Surgery 11/22/22 Kelsea Root, RN [place] Medical Office Receptionist Assistant 06/15/23 08/26/23 Michelle Mendes APRN, SCAFFOLD SETTER #2 [facility] [address] [place] [address] Nurse Practitioner Advanced Practice Nurse 08/14/22 Chantelle Nix APRN, SCAFFOLD SETTER #2 [place] [address] Nurse Practitioner Advanced Practice Nurse 02/19/24 documented as of this encounter
--- OUTSIDE RECORDS SUMMARY | 2025-03-30 08:25 | XMS_ITS | Encounter Summary ---
Author Organization [facility] Address [address] [place] [address] Phone Care Team Providers Care Tie Bucker Name Role Phone Marco Woods MD Primary Care Provider Kirsten Niño MD Unavailable Chin Burrows MD Unavailable Kelsea Root RN Unavailable Unavailable Michelle Mendes APRN, TUBE MACHINE OPERATOR Unavailable [phone] Chantelle Nix APRN, TUBE MACHINE OPERATOR Unavailable Reason for Visit * Reason Comments Medication Refill Encounter Details Date Type Department Care Team (Late st Contact Info) Description 05/08/2023 Refill [facility] Medical Group - Family Medicine - [place] #[address] [place] [address] Marco Woods MD [address] [address] Medication Refill Social History Tobacco Use Types [...] Sex Assigned at Female 11/22/2023 11:58 AM BULLET SLUG CASTING MACHINE OPERATOR Legal Sex Female 11:34 PM CDT Gender Identity Female 11/22/2023 11:58 AM BULLET SLUG CASTING MACHINE OPERATOR Sexual Orientation Not on file [...] CNP - 05/10/2023 10:28 PM CDT [place] COMPLIANCE MGR reviewed, UDS reviewed. Approved * Telephone Encounter [...] [place] 01/23/23 Office Visit Rebecca Liu APRN, TUBE MACHINE OPERATOR [facility] 12/05/22 Office Visit Marco Woods MD [facility] [place] 10/25/22 Office Visit Marco Woods MD [facility] [place] 08/29/22 Office Visit Ronald Shaffer APRN, TUBE MACHINE OPERATOR [facility] Showing recent visits within past 365 days and meeting all other requirements Future Appointments Date Type Provider Dept 08/02/23 Appointment Marco Woods MD [facility] 08/07/23 Appointment Marco Woods MD [facility] Showing future appointments within next 90 days and meeting all other requirements documented in this encounter Plan of Treatment Upcoming Encounters Date Type Department Care Team (Late st Contact Info) Description 04/02/2025 2:30 PM CDT EMG [facility] Neurosciences Clinic 2 [place] [address] Marco Woods MD #[address] [address] Discharge Disposition: Discharged to home or Selfcare 04/14/2025 6:30 PM CDT Office Visit [facility] - Family Medicine [facility] #2 [place] [address] Marco Woods MD #[address] [address] 05/11/2025 9:45 AM CDT Office Visit [facility] - Endocrinology - [place] #2 [place] [address] Kirsten Niño MD #[address] [address] 06/19/2025 10:00 AM CDT Office Visit [facility] - Pulmonology & Sleep Medicine [facility] #2 [place] [address] Michelle Mendes APRN, TUBE MACHINE OPERATOR #2 [facility] [address] [place] [address] documented as of this encounter Visit Diagnoses Diagnosis Anxiety Anxiety state, unspecified documented in this encounter Additional Health Concerns Infection Onset Date Last Indicated Resolved Time COVID - 19 06/01/2023 06/01/2023 06/01/2023 8:16 AM CDT COVID - 11/01/2023 11/01/2023 11/11/2023 12:1 6 AM BULLET SLUG CASTING MACHINE OPERATOR COVID - 06/25/2024 06/25/2024 06/25/2024 6:36 PM CDT Assessment Noted Time PHQ-9 Depression Total Score: 0 11/22/19 10:00 AM BULLET SLUG CASTING MACHINE OPERATOR documented as of this encounter Care Teams Tie Bucker Relationship Specialty Start Date End Date Marco Woods MD #[address] [address] PCP - General Family Medicine 11/22/17 Kirsten Niño MD #[address] [address] Consulting Physician Endocrinology 07/17/22 Chin Burrows MD #[address] [address] Consulting Physician General Surgery 11/22/22 Kelsea Root RN [place] Recharger 06/15/23 08/26/23 Michelle Mendes APRN, TUBE MACHINE OPERATOR #2 [facility] [address] [place] [address] Nurse Practitioner Advanced Practice Nurse 08/14/22 Chantelle Nix APRN, TUBE MACHINE OPERATOR #2 [place] [address] Nurse Practitioner Advanced Practice Nurse 02/19/24 documented as of this encounter
--- OUTSIDE RECORDS SUMMARY | 2025-03-30 08:25 | XMS_ITS | Clinical Summary ---
Author Organization [facility] Medical Office Building [address] Address [address] [place] [address] Care Team Providers Care Research Rn Spec Name Role Phone Nikhil Robles MD Primary Care Provider [phone] Allergies Active Allergy Reactions Criticality Noted Date [...] Nasal saline spray (Simply saline, Little Remedies, [place], [place]) 2 second sprays or 2 squeezes into [...] on file Legal Sex Female 6:03 PM WET CLEANER MACHINE Gender Identity Not on file Sexual Orientation Not on file Obstetrics History Last Filed Vital Signs Vital Sign Reading Time Taken Comments Blood Pressure 170/75 09/19/2023 10:51 AM WET CLEANER MACHINE Pulse 114 09/19/2023 2:00 PM WET CLEANER MACHINE Temperature 36.6 C (97.8 F) 09/19/2023 10:51 AM WET CLEANER MACHINE Respiratory Rate 18 09/19/2023 10:51 AM WET CLEANER MACHINE Oxygen Saturation 98% 09/19/2023 10:51 AM WET CLEANER MACHINE Inhaled Oxygen Concentration - - Weight 80.3 kg (177 lb) 09/18/2023 3:16 PM WET CLEANER MACHINE Height 157.5 cm (5' 2) 09/18/2023 3:16 PM WET CLEANER MACHINE Body Mass Index 32.37 09/18/2023 3:16 PM WET CLEANER MACHINE Plan of Treatment Health Maintenance Due Date [...] 022, 06/19/2021, 08/30/2017, Additional history exists Insurance [facility] MEDIC[facility] ADVANTAGE [facility] MEDIC[facility] Address: [address] [address] [facility] MDCR HMO REF [facility]IC[facility] Address: [address] [address] [place] [address] [employer] MEDICARE ADVANTAGE Advance Directives For more information, please contact: [phone] * Full Code (Latest Code Status on File) Date Activated Date Inactivated Comments 09/18/2023 2:35 PM 09/19/2023 6:39 PM * Full Code Date Activated Date Inactivated Comments 09/18/2023 12:47 PM 09/18/2023 2:35 PM Care Teams Research Rn Spec Relationship Specialty Start Date End Date Nikhil Robles MD [address] [place] [address] PCP - General Emergency Medicine 03/12/24
--- OUTSIDE RECORDS SUMMARY | 2025-03-30 08:25 | XMS_ITS | Encounter Summary ---
Author Organization [facility] Address [address] [place] [address] Phone Care Team Providers Care Primer Waterproofing Machine Adjuster Name Role Phone Marco Woods MD Primary Care Provider [phone] Kirsten Niño MD Unavailable Chin Burrows MD Unavailable [phone] Michelle Mendes APRN, HOME CARE RN Unavailable Chantelle Nix ROLLOFF DRIVER, HOME CARE RN Unavailable Encounter Details Date Type Department Care Team (Late st Contact Info) Description 03/29/2025 Telephone [facility] #[address] [place] [address] Marco Woods MD #[address] [address] Social History Tobacco Use Types Packs/Day Years Used Date Smoking Tobacco: Never Smokeless Tobacco: Never Alcohol Use Standard Drinks/Week Comments Not Currently 0 (1 standard drink = 0.6 oz pur e alcohol) [facility] Utilities Answer Date Recorded In the [...] declined 06/25/2024 How often do you attend sikhism or religion serv ices? Patient declined 06/25/2024 Do you belong to any clubs o r organizations such as sikhism groups, unions, fraternal or athletic groups, or [...] Total Score - Questions 1-9 18 10/24 [facility] - Occupational [...] a residential (including now)? Patient declined 11/28/2023 Housing Stability [...] were you homeless or living in a residential (including now)? Patient unable to answer 06/25/2024 Education Answer Date Recorded What is the highest level of school you have completed or the highest degree you have received? 12th grade 04/03/2023 Sexually Active Control Partners Comments Not Currently Comments No Sex and Gender Information Value Date Recorded Sex Assigned at Female 11/22/2023 11:58 AM MANAGER PROFESSIONAL DEVELOPMENT Legal Sex Female 11:34 PM CDT Gender Identity Female 11/22/2023 11:58 AM MANAGER PROFESSIONAL DEVELOPMENT Sexual Orientation Not on file Occupation Industry Job Start Date Job End Date disabled Not on file Not on file Not on file documented as of this encounter Miscellaneous Notes * Telephone Encounter - Marco Woods MD - 03/29/2025 1:23 PM CDT Please call. Will call in another dose documented in this encounter Plan of Treatment Upcoming Encounters Date Type Department Care Team (Late st Contact Info) Description 04/02/2025 2:30 PM CDT EMG [facility] Neuro[facility]iences [facility] 2 [place] [address] Marco Woods MD #2 [facility] [address] [place] [address] Discharge Disposition: Discharged to home or Selfcare 04/14/2025 6:30 PM CDT [facility] - [place] #2 [place] [address] Marco Woods MD #2 [facility] [address] [place] [address] 05/11/2025 9:45 AM CDT Office Visit [facility] Medical [facility] - Endocrinology - [place] #2 [place] [address] Kirsten Niño MD #2 [facility] [address] [place] [address] 06/19/2025 10:00 AM CDT Office Visit [facility] - Pulmonology & Sleep Medicine [facility] #2 [place] [address] Michelle Mendes APRN, HOME CARE RN #2 [facility] [address] [place] [address] documented as of this encounter Visit Diagnoses Not on filedocumented in this encounter Additional Health Concerns Assessment Noted Time PHQ-9 Depression Total Score: 18 024 10:00 AM MANAGER PROFESSIONAL DEVELOPMENT documented as of this encounter Care Teams Primer Waterproofing Machine Adjuster Relationship Specialty Start Date End Date Marco Woods MD #2 [facility] [address] [place] [address] PCP - General Family Medicine 11/22/17 Kirsten Niño MD #2 [facility] [address] [place] [address] Consulting Physician Endocrinology 07/17/22 Chin Burrows MD #[address] [address] Consulting Physician General Surgery 11/22/22 Michelle Mendes APRN, HOME CARE RN #2 [facility] [address] [place] [address] Nurse Practitioner Advanced Practice Nurse 08/14/22 Chantelle Nix APRN, HOME CARE RN #2 [place] [address] Nurse Practitioner Advanced Practice Nurse 02/19/24 documented as of this encounter
--- OUTSIDE RECORDS SUMMARY | 2025-03-30 08:25 | XMS_ITS | Encounter Summary ---
Author Organization [facility] Address [address] [place] [address] Phone Care Team Providers Care Postage Machine Operator Name Role Phone Marco Woods MD Primary Care Provider Kirsten Niño MD Unavailable Chin Burrows MD Unavailable Michelle Mendes APRN, ENVIRONMENTAL SERVICES WORKER Unavailable Chantelle Nix RADIOLOGY THERAPIST, ENVIRONMENTAL SERVICES WORKER Unavailable Reason for Visit * Reason Comments Medication Refill Encounter Details Date Type Department Care Team (Late st Contact Info) Description 01/22/2024 Refill [facility] - Family Medicine - [place] [address] [place] [phone] Marco Woods MD [id number] [address] Medication Refill Social History Tobacco Use Types Packs/Day Years Used Date Smoking Tobacco: Never Smokeless Tobacco: Never Alcohol Use Standard Drinks/Week Comments Not Currently 0 (1 standard drink = 0.6 oz pur e alcohol) [facility] Utilities Answer Date Recorded In [...] declined 11/28/2023 How often do you attend taoist or pentecostal serv ices? Patient declined 11/28/2023 Do you belong to any clubs o r organizations such as taoist groups, unions, fraternal or athletic groups, or [...] 1-9 18 10/24 [facility] - Occupational Stress Questionnaire Answer [...] place to sleep or slept in a usp (including now)? Patient declined 11/28/2023 Education Answer Date Recorded What is the highest level of school you have completed or the highest degree you have received? 12th grade 04/03/2023 Sexually Active Control Partners Comments Not Currently Comments No Sex and Gender Information Value Date Recorded Sex Assigned at Female 11/22/2023 11:58 AM PRECAST CONCRETE PRODUCTS INSTALLER Legal Sex Female 11:34 PM CDT Gender Identity Female 11/22/2023 11:58 AM PRECAST CONCRETE PRODUCTS INSTALLER Sexual Orientation Not on file Occupation Industry [...] MG Tablet Controlled Release [Pharmacy Med Name: [facility] ER 300MG TBCR] 56 Tablet 5 Sig: TAKE 1 TABLET BY MOUTH TWICE A DAY Not Delegated - Antimanic Agents Protocol Failed - 01/22/2024 9:25 AM Failed - This refill cannot be delegated Passed - Visit with relevant provider in past 12 months or upcoming 90 days Recent Visits Date Type Provider Dept 12/05/23 Office Visit Marco Woods MD [facility] 11/20/23 Office Visit Ronald Shaffer APRN, ENVIRONMENTAL SERVICES WORKER [facility] [place] 10/10/23 Office Visit Rebecca Liu APRN, DREW [facility] [place] 08/24/23 [facility] Office Visit Marco Woods MD [facility] 05/01/23 Office Visit [facility] MD [facility] 04/18/23 Office Visit Marco Wodos MD [facility] 04/03/23 Office Visit Marco Woods MD [facility] 03/12/23 Office Visit Marco Woods MD [facility] 03/05/23 Office Visit Mirtha Steiner APRN, [facility] Showing recent visits within past 365 days and meeting all other requirements Future Appointments Date Type Provider Dept 03/12/24 Appointment Marco Woods MD [facility] [place] Showing future appointments within next 90 days and meeting all other requirements documented in this encounter Plan of Treatment Upcoming Encounters Date Type Department Care Team (Late st Contact Info) Description 04/02/2025 2:30 PM CDT [facility] [address] [place] [address] Marco Woods MD #[address] [address] Discharge Disposition: Discharged to home or Selfcare 04/14/2025 6:30 PM CDT Office Visit [facility] Medical [facility] - Family Medicine - [place] #[address] [place] [address] Marco Woods MD #[address] [address] 05/11/2025 9:45 AM CDT Office Visit [facility] - Endocrinology - [place] #[address] [place] [address] Kirsten Niño MD #2 [facility] [address] [place] [address] 06/19/2025 10:00 AM CDT Office Visit [facility] - Pulmonology & Sleep Medicine [facility] #2 [place] [address] Michelle Mendes APRN, ENVIRONMENTAL SERVICES WORKER #2 [facility] [address] [place] [address] documented as of this encounter Visit Diagnoses Not on filedocumented in this encounter Additional Health Concerns Infection Onset Date Last Indicated Resolved Time COVID - 19 06/25/2024 06/25/2024 06/25/2024 6:36 PM CDT Assessment Noted Time PHQ-9 Depression Total Score: 18 024 10:00 AM PRECAST CONCRETE PRODUCTS INSTALLER documented as of this encounter Care Teams Postage Machine Operator Relationship Specialty Start Date End Date Marco Woods MD #[address] [address] PCP - General Family Medicine 11/22/17 Kirsten Niño MD #[address] [address] Consulting Physician Endocrinology 07/17/22 Chin Burrows MD #[address] [address] Consulting Physician General Surgery 11/22/22 Michelle Mendes APRN, DREW #2 [facility] [address] [place] [address] Nurse Practitioner Advanced Practice Nurse 08/14/22 Chantelle Nix APRN, ENVIRONMENTAL SERVICES WORKER #2 [place] [address] Nurse Practitioner Advanced Practice Nurse 02/19/24 documented as of this encounter
--- OUTSIDE RECORDS SUMMARY | 2025-03-30 08:25 | XMS_ITS | Encounter Summary ---
Author Organization [facility] Address [address] [place] [address] Phone Care Team Providers Care Plastic Cutter Name Role Phone Marco Woods MD Primary Care Provider [phone] Kirsten Niño MD Unavailable Chin Burrows MD Unavailable Michelle Mendes APRN, AIRCRAFT PILOT Unavailable [phone] Chantelle Nix HAND SHOES SEWER, AIRCRAFT PILOT Unavailable Reason for Visit * Reason Comments Medication Refill Encounter Details Date Type Department Care Team (Late st Contact Info) Description 01/23/2024 Refill [facility] Medical Group - Family Medicine - [place] [address] [place] [phone] Marco Woods MD [id number] [address] Medication Refill Social History Tobacco Use Types Packs/Day Years Used Date Smoking Tobacco: Never Smokeless Tobacco: Never Alcohol Use Standard Drinks/Week Comments Not Currently 0 (1 standard drink = 0.6 oz pur e alcohol) [facility] Utilities Answer Date Recorded In the [...] How often do you attend alevism or denominational serv ices? Patient declined 11/28/2023 [...] Score - Questions 1-9 18 10/24 [facility] - Occupational Stress Questionnaire Answer Date Recorded [...] Sex Assigned at Female 11/22/2023 11:58 AM OPTICAL ENGINEER Legal Sex Female 11:34 PM CDT Gender Identity Female 11/22/2023 11:58 AM OPTICAL ENGINEER Sexual Orientation Not on file Occupation [...] 28 28 Tablet Maria Antonia Galeana MD [facility] - Alt... ATORVASTATIN CALCIUM 20 MG TABS 12/13/2023 21 21 Tablet Maria Antonia Galeana MD [facility] - Alt... ATORVASTATIN 20MG TABLETS 10/06/2023 90 90 Each Marco Woods MD [facility] #... documented in this encounter Plan of Treatment Upcoming Encounters Date Type Department Care Team (Late st Contact Info) Description 04/02/2025 2:30 PM CDT [facility] 2 [place] [phone] Marco Woods MD #2 [facility] [address] [place] [address] Discharge Disposition: Discharged to home or Selfcare 04/14/2025 6:30 PM CDT Office Visit [facility] - Family Medicine [facility] #2 [place] [address] Marco Woods MD #2 [facility] [address] [place] [address] 05/11/2025 9:45 AM CDT Office Visit [facility] - Endocrinology - [place] #[address] [place] [address] Kirsten Niño MD #2 [facility] [address] [place] [address] 06/19/2025 10:00 AM CDT Office Visit [facility] Pulmonology & Sleep Medicine [facility] #[address] [place] [address] Michelle Mendes APRN, AIRCRAFT PILOT #2 [facility] [address] [place] [address] documented as of this encounter Visit Diagnoses Not on filedocumented in this encounter Additional Health Concerns Infection Onset Date Last Indicated Resolved Time COVID - 19 06/25/2024 06/25/2024 06/25/2024 6:36 PM CDT Assessment Noted Time PHQ-9 Depression Total Score: 18 11/20/ 024 10:00 AM OPTICAL ENGINEER documented as of this encounter Care Teams Plastic Cutter Relationship Specialty Start Date End Date Marco Woods MD #2 [facility] [address] [place] [address] PCP - General Family Medicine 11/22/17 Kirsten Niño MD #2 [facility] [address] [place] [phone] Consulting Physician Endocrinology 07/17/22 Chin Burrows MD #2 [facility] [address] [place] [address] Consulting Physician General Surgery 11/22/22 Michelle Mendes APRN, AIRCRAFT PILOT #2 [facility] [address] [place] [address] Nurse Practitioner Advanced Practice Nurse 08/14/22 Chantelle Nix APRN, AIRCRAFT PILOT #2 [place] [address] Nurse Practitioner Advanced Practice Nurse 02/19/24 documented as of this encounter
--- OUTSIDE RECORDS SUMMARY | 2025-03-30 08:25 | XMS_ITS | Encounter Summary ---
Author Organization [facility] Address [address] [place] [address] Phone Care Team Providers Care Utility Specialist Name Role Phone Marco Woods MD Primary Care Provider Kirsten Niño MD Unavailable Chin Burrows MD Unavailable Michelle Mendes APRN, CLAIM TECHNICIAN Unavailable [phone] Chantelle Nxi GENETICS NURSE, CLAIM TECHNICIAN Unavailable Reason for Visit * Reason Comments Medication Refill Encounter Details Date Type Department Care Team (Late st Contact Info) Description 04/04/2024 Refill [facility] - Family Medicine - [place] [address] [place] [phone] Marco Woods MD [id number] [address] Medication Refill Social History Tobacco Use Types Packs/Day Years Used Date Smoking Tobacco: Never Smokeless Tobacco: Never Alcohol Use Standard Drinks/Week Comments Not Currently 0 (1 standard drink = 0.6 oz pur e alcohol) [facility] Utilities Answer Date Recorded In [...] declined 11/28/2023 How often do you attend gnosticist or tenriism serv ices? Patient declined 11/28/2023 Do you belong to any clubs o r organizations such as gnosticist groups, unions, fraternal or athletic groups, or [...] Total Score - Questions 1-9 18 10/24 [facility] [place] - Occupational Stress Questionnaire Answer Date Recorded [...] a longterm (including now)? Patient declined 11/28/2023 Education Answer Date Recorded What is the highest level of school you have completed or the highest degree you have received? 12th grade 04/03/2023 Sexually Active Control Partners Comments Not Currently Comments No Sex and Gender Information Value Date Recorded Sex Assigned at Female 11/22/2023 11:58 AM WIRE GALVANIZER Legal Sex Female 11:34 PM CDT Gender Identity Female 11/22/2023 11:58 AM WIRE GALVANIZER Sexual Orientation Not on file Occupation Industry [...] Dept 03/27/24 Office Visit Mirtha Steiner APRN, CLAIM TECHNICIAN [facility] [place] 03/12/24 Office Visit Marco Woods MD [facility] [place] 02/21/24 Office Visit Amor Pitt MD [facility] [place] 02/12/24 Office Visit Rebecca Liu APRN, CLAIM TECHNICIAN [facility] [place] 12/05/23 Office Visit Marco Woods MD [facility] [place] 11/20/23 Office Visit Ronald Shaffer APRN, CLAIM TECHNICIAN [facility] [place] 10/10/23 Office Visit Rebecca Liu APRN, CLAIM TECHNICIAN [facility] [place] 08/24/23 Office Visit Ranjit Linder MD [facility] [place] 08/02/23 Office Visit Marco Woods MD [facility] [place] 05/01/23 Office Visit Marco Woods MD [facility] Showing recent visits within past 365 days and meeting all other requirements Future Appointments Date Type Provider Dept 04/09/24 Appointment Marco Woods MD [facility] Showing future appointments within next 90 days and meeting all other requirements documented in this encounter Plan of Treatment Upcoming Encounters Date Type Department Care Team (Late st Contact Info) Description 04/02/2025 2:30 PM CDT [facility] 2 [place] [address] Marco Woods MD #[address] [address] Discharge Disposition: Discharged to home or Selfcare 04/14/2025 6:30 PM CDT Office Visit [facility] Medical [facility] - Family Medicine - [place] #2 [place] [address] Marco Woods MD #[address] [address] 05/11/2025 9:45 AM CDT Office Visit [facility] Medical [facility] - Endocrinology - [place] #2 [place] [address] Kirsten Niño MD #2 [facility] [address] [place] [address] 06/19/2025 10:00 AM CDT Office Visit [facility] - Pulmonology & Sleep Medicine - [place] #[address] [place] [address] Michelle Mendes APRN, CLAIM TECHNICIAN #2 [facility] [address] [place] [address] documented as of this encounter Visit Diagnoses Not on filedocumented in this encounter Additional Health Concerns Infection Onset Date Last Indicated Resolved Time COVID - 19 06/25/2024 06/25/2024 06/25/2024 6:36 PM CDT Assessment Noted Time PHQ-9 Depression Total Score: 18 024 10:00 AM WIRE GALVANIZER documented as of this encounter Care Teams Utility Specialist Relationship Specialty Start Date End Date Marco Woods MD #2 [facility] [address] [place] [address] PCP - General Family Medicine 11/22/17 Kirsten Niño MD #2 [facility] [address] [place] [address] Consulting Physician Endocrinology 07/17/22 Chin Burrows MD #2 [facility] [address] [place] [address] Consulting Physician General Surgery 11/22/22 Michelle Mendes APRN, DREW #2 [facility] [address] [place] [address] Nurse Practitioner Advanced Practice Nurse 08/14/22 Chantelle Nix APRN, CLAIM TECHNICIAN #2 [place] [address] Nurse Practitioner Advanced Practice Nurse 02/19/24 documented as of this encounter
--- OUTSIDE RECORDS SUMMARY | 2025-03-30 08:25 | XMS_ITS | Encounter Summary ---
Author Organization [facility] Address [address] [place] [address] Phone Care Team Providers Care Special Procedures Nurse Name Role Phone Marco Woods MD Primary Care Provider Kirsten Niño MD Unavailable Chin Burrows MD Unavailable Michelle Mendes COMPUTERIZED MILL MILL RECORDER, JOINT CLEANING MACHINE OPERATOR Unavailable Chantelle Nix COMPUTERIZED MILL MILL RECORDER, JOINT CLEANING MACHINE OPERATOR Unavailable Reason for Visit * Reason Onset Date Comments Advice Only 12/01/2024 Encounter Details Date Type Department Care Team (Late st Contact Info) Description 12/01/2024 Telephone [facility] [address] [place] [address] Marco Woods MD #2 [facility] [place] [address] Advice Only Social History Tobacco Use Types Packs/Day Years Used Date Smoking Tobacco: Never Smokeless Tobacco: Never Alcohol Use Standard Drinks/Week Comments Not Currently 0 (1 standard drink = 0.6 oz pur e alcohol) [facility] Utilities Answer Date Recorded In the past [...] declined 06/25/2024 How often do you attend religious or faith serv ices? Patient declined 06/25/2024 [...] Total Score - Questions 1-9 18 10/24 [facility] - Occupational Stress Questionnaire Answer Date Recorded [...] a prison (including now)? Patient declined 11/28/2023 Housing Stability [...] any time in the past 12 [address] [facility] [place], were you homeless or living in a prison (including now)? Patient unable to answer 06/25/2024 Education Answer Date Recorded What is the highest level of school you have completed or the highest degree you have received? 12th grade 04/03/2023 Sexually Active Control Partners Comments Not Currently Comments No Sex and Gender Information Value Date Recorded Sex Assigned at Female 11/22/2023 11:58 AM COMMERCIAL LITIGATION ATTORNEY Legal Sex Female 11:34 PM CDT Gender Identity Female 11/22/2023 11:58 AM COMMERCIAL LITIGATION ATTORNEY Sexual Orientation Not on file Occupation Industry Job Start Date Job End Date disabled Not on file Not on file Not on file documented as of this encounter Miscellaneous Notes * Telephone Encounter - Shaun Hall - 12/01/2024 11:05 AM COMMERCIAL LITIGATION ATTORNEY Symptoms: Abdominal Pain - Female - Not , Diarrhea, swollen in legs, difficulty walking Outcome: Warm transfer to an emergent RN NOW! Reason: Severe pain now The caller accepted this outcome. ERCIAL LITIGATION ATTORNEY documented in this encounter Plan of Treatment Upcoming Encounters Date Type Department Care Team (Late st Contact Info) Description 04/02/2025 2:30 PM CDT EMG [facility] 2 [place] [address] Marco Woods MD #2 [facility] [address] [place] [address] Discharge Disposition: Discharged to home or Selfcare 04/14/2025 6:30 PM CDT Office Visit [facility] Family Medicine - [place] #2 [place] [address] Marco Woods MD #2 [facility] [address] [place] [address] 05/11/2025 9:45 AM CDT Office Visit [facility] - Endocrinology - [place] #2 [place] [address] Kirsten Niño MD #2 [facility] [address] [place] [address] 06/19/2025 10:00 AM CDT Office Visit [facility] - Pulmonology & Sleep Medicine - [place] #2 [place] [address] Michelle Mendes APRN, JOINT CLEANING MACHINE OPERATOR #2 [facility] [address] [place] [address] documented as of this encounter Visit Diagnoses Not on filedocumented in this encounter Additional Health Concerns Assessment Noted Time PHQ-9 Depression Total Score: 18 024 10:00 AM COMMERCIAL LITIGATION ATTORNEY documented as of this encounter Care Teams Special Procedures Nurse Relationship Specialty Start Date End Date Marco Woods MD #2 [facility] [address] [place] [address] PCP - General Family Medicine 11/22/17 Kirsten Niño MD #2 [facility] [address] [place] [address] Consulting Physician Endocrinology 07/17/22 Chin Burrows MD #2 [facility] [address] [place] [address] Consulting Physician General Surgery 11/22/22 Michelle Mendes APRN, JOINT CLEANING MACHINE OPERATOR #2 [facility] [address] [place] [address] Nurse Practitioner Advanced Practice Nurse 08/14/22 Chantelle Nix APRN, JOINT CLEANING MACHINE OPERATOR #2 [place] [address] Nurse Practitioner Advanced Practice Nurse 02/19/24 documented as of this encounter
--- OUTSIDE RECORDS SUMMARY | 2025-03-30 08:25 | XMS_ITS | Encounter Summary ---
Author Organization [facility] Address [address] [place] [address] Phone Care Team Providers Care Director Airport Operations Name Role Phone Marco Woods MD Primary Care Provider [phone] Kirsten Niño MD Unavailable Chin Burrows MD Unavailable [phone] Michelle Mendes APRN, POLE PEELING MACHINE OPERATOR Unavailable Chantelle Nix FINAL FINISHER FORGING DIES, POLE PEELING MACHINE OPERATOR Unavailable Reason for Visit * Reason Comments Medication Refill Encounter Details Date Type Department Care Team (Late st Contact Info) Description 01/03/2024 Refill [facility] - Family Medicine - [place] [address] [place] [phone] Marco Woods MD [id number] [address] Medication Refill Social History Tobacco Use Types Packs/Day Years Used Date Smoking Tobacco: Never Smokeless Tobacco: Never Alcohol Use Standard Drinks/Week Comments Not Currently 0 (1 standard drink = 0.6 oz pur e alcohol) [facility] Utilities Answer Date Recorded In the [...] declined 11/28/2023 How often do you attend worship or druze serv ices? Patient declined 11/28/2023 Do you belong to any clubs o r organizations such as worship groups, unions, fraternal or athletic groups, or [...] 10/24 [facility] - Occupational Stress Questionnaire Answer [...] Sex Assigned at Female 11/22/2023 11:58 AM ORCHARD PRUNER Legal Sex Female 11:34 PM CDT Gender Identity Female 11/22/2023 11:58 AM ORCHARD PRUNER Sexual Orientation Not on file Occupation Industry Job Start Date Job End Date disabled Not on file Not on file Not on file documented as of this encounter Miscellaneous Notes * Telephone Encounter - Lila Chaparro RN - 01/03/2024 11:13 AM CDT Medication(s) [facility] Chronic Medication Refill Standing Order for Pediatricand [...] Dept 12/05/23 Office Visit Marco Woods MD [facility] [place] 11/20/23 Office Visit Ronald Shaffer APRN, POLE PEELING MACHINE OPERATOR [facility] 10/10/23 Office Visit Rebecca Liu APRN, POLE PEELING MACHINE OPERATOR [facility] [place] 08/24/23 Office Visit Ranjit Linder MD [facility] 08/02/23 Office Visit Marco Woods MD [facility] 05/01/23 Office Visit Marco Woods MD [facility] 04/18/23 Office Visit Marco Woods MD [facility] 04/03/23 Office Visit Marco Woods MD [facility] 03/12/23 Office Visit Marco Woods MD [facility] 03/05/23 Office Visit AbigailMirtha veloz APRN, POLE PEELING MACHINE OPERATOR [facility] [place] Showing recent visits within past 365 days and meeting all other requirements Future Appointments Date Type Provider Dept 03/12/24 Appointment Marco Woods MD [facility] [place] Showing future appointments within next [...] Description 04/02/2025 2:30 PM CDT EMG [facility] [address] [place] [address] Marco Woods MD #2 [facility] [address] [place] [address] Discharge Disposition: Discharged to home or Selfcare 04/14/2025 6:30 PM CDT Office Visit [facility] - Family Medicine [facility] #2 [facility] [place] [address] Marco Woods MD #2 [facility] [address] [place] [address] 05/11/2025 9:45 AM CDT Office Visit [facility] - Endocrinology [facility] #2 [place] [address] Kirsten Niño MD #2 [facility] [address] [place] [address] 06/19/2025 10:00 AM CDT Office Visit [facility] Pulmonology & Sleep Medicine [facility] #2 [place] [address] Michelle Mendes APRN, DREW #2 [facility] [address] [place] [address] documented as of this encounter Visit Diagnoses Not on filedocumented in this encounter Additional Health Concerns Infection Onset Date Last Indicated Resolved Time COVID - 19 06/25/2024 06/25/2024 06/25/2024 6:36 PM CDT Assessment Noted Time PHQ-9 Depression Total Score: 18 024 10:00 AM ORCHARD PRUNER documented as of this encounter Care Teams Director Airport Operations Relationship Specialty Start Date End Date Marco Woods MD #2 [facility] [address] [place] [address] PCP - General Family Medicine 11/22/17 Kirsten Niño MD #2 [facility] [address] [place] [address] Consulting Physician Endocrinology 07/17/22 Chin Burrows MD #2 [facility] [address] [place] [address] Consulting Physician General Surgery 11/22/22 Michelle Mendes APRN, POLE PEELING MACHINE OPERATOR #2 [facility] [address] [place] [address] Nurse Practitioner Advanced Practice Nurse 08/14/22 Chantelle Nix APRN, POLE PEELING MACHINE OPERATOR #2 [place] [address] Nurse Practitioner Advanced Practice Nurse 02/19/24 documented as of this encounter
--- OUTSIDE RECORDS SUMMARY | 2025-03-30 08:25 | XMS_ITS | Encounter Summary ---
Author Organization [facility] Address [address] [place] [address] Phone Care Team Providers Care Centrex Radio Operator Name Role Phone Marco Woods MD Primary Care Provider [phone] Kirsten Niño MD Unavailable Chin Burrows MD Unavailable [phone] Kelsea Root RN Unavailable Unavailable Michelle Mendes APRN, VOLUNTEER RECRUITMENT COORDINATOR Unavailable Chantelle Nix APRN, VOLUNTEER RECRUITMENT COORDINATOR Unavailable Reason for Visit * Reason Comments Medication Refill Encounter Details Date Type Department Care Team (Late st Contact Info) Description 01/22/2023 Refill [facility] - [place] [address] [place] [address] Kirsten Niño MD #[address] [address] Medication Refill Social History Tobacco Use Types Packs/Day Years Used Date Smoking Tobacco: Never Smokeless Tobacco: Never Alcohol Use Standard Drinks/Week Comments Not Currently 0 (1 standard drink = 0.6 oz pur e alcohol) Sexually Active Control Partners Comments Not Currently Comments No Sex and Gender Information Value Date Recorded Sex Assigned at Female 11/22/2023 11:58 AM CIGAR MAKING MACHINE SUPERVISOR Legal Sex Female 11:34 PM CDT Gender Identity Female 11/22/2023 11:58 AM CIGAR MAKING MACHINE SUPERVISOR Sexual Orientation Not on file Occupation Industry Job Start Date Job End Date disabled Not on file Not on file Not on file COVID-19 Exposure Response Date Recorded In the last 10 days, have ambar duffy been in contact with someone who was confirmed or suspected to have Coronavirus/COVID-19? No / Unsure 01/23/2023 8:23 AM CDT documented as of this encounter Plan of Treatment Upcoming Encounters Date Type Department Care Team (Late st Contact Info) Description 04/02/2025 2:30 PM CDT EMG [facility] Neurosciences Clinic [address] [place] [address] Marco Woods MD #2 [facility] [address] [place] [address] Discharge Disposition: Discharged to home or Selfcare 04/14/2025 6:30 PM CDT Office Visit [facility] Medical [facility] - Family Medicine - [place] #2 [place] [address] Marco Woods MD #2 [facility] [address] [place] [address] 05/11/2025 9:45 AM CDT Office Visit [facility] - Endocrinology - [place] #2 [place] [address] Kirsten Niño MD #2 [facility] [address] [place] [address] 06/19/2025 10:00 AM CDT Office Visit [facility] - Pulmonology & Sleep Medicine - [place] #2 [place] [address] Michelle Mendes APRN, VOLUNTEER RECRUITMENT COORDINATOR #2 [facility] [address] [place] [address] documented as of this encounter Visit Diagnoses Not on filedocumented in this encounter Additional Health Concerns Infection Onset Date Last Indicated Resolved Time COVID - 06/01/2023 06/01/2023 06/01/2023 8:16 AM CDT COVID - 19 11/01/2023 11/01/2023 11/11/2023 12:1 6 AM CIGAR MAKING MACHINE SUPERVISOR COVID - 06/25/2024 06/25/2024 06/25/2024 6:36 PM CDT Assessment Noted Time PHQ-9 Depression Total Score: 0 11/22/19 10:00 AM CIGAR MAKING MACHINE SUPERVISOR documented as of this encounter Care Teams Centrex Radio Operator Relationship Specialty Start Date End Date Marco Woods MD #2 [facility] [address] [place] [address] PCP - General Family Medicine 11/22/17 Kirsten Niño MD #2 [facility] [address] [place] [address] Consulting Physician Endocrinology 07/17/22 Chin Burrows MD #2 [facility] [address] [place] [address] Consulting Physician General Surgery 11/22/22 Kelsea Root RN [place] Programming Development Project Manager 06/15/23 08/26/23 Michelle Mendes APRN, VOLUNTEER RECRUITMENT COORDINATOR #2 [facility] [address] [place] [address] Nurse Practitioner Advanced Practice Nurse 08/14/22 Chantelle Nix APRN, VOLUNTEER RECRUITMENT COORDINATOR #2 [place] [address] Nurse Practitioner Advanced Practice Nurse 02/19/24 documented as of this encounter
--- OUTSIDE RECORDS SUMMARY | 2025-03-30 08:25 | XMS_ITS | Encounter Summary ---
Author Organization [facility] Address [address] [place] [address] Phone Care Team Providers Care Chili Powder Mixer Name Role Phone aMrco Woods MD Primary Care Provider [phone] Kirsten Niño MD Unavailable Chin Burrows MD Unavailable Michelle Mendes APRN, PUBLIC HEALTH PROGRAM MANAGER Unavailable Chantelle Nix IDENTIFICATION PRINTING MACHINE SETTER, PUBLIC HEALTH PROGRAM MANAGER Unavailable Reason for Visit * Reason Comments Medication Refill Encounter Details Date Type Department Care Team (Late st Contact Info) Description 03/11/2024 Refill [facility] - Family Medicine - [place] [address] [place] [phone] Marco Woods MD [id number] [address] Medication Refill Social History Tobacco Use Types Packs/Day Years Used Date Smoking Tobacco: Never Smokeless Tobacco: Never Alcohol Use Standard Drinks/Week Comments Not Currently 0 (1 standard drink = 0.6 oz pur e alcohol) [facility] Utilities Answer Date Recorded In the [...] declined 11/28/2023 How often do you attend spiritism or christian serv ices? Patient declined 11/28/2023 Do you belong to any clubs o r organizations such as spiritism groups, unions, fraternal or athletic groups, or [...] Total Score - Questions 1-9 18 10/24 [facility] - Occupational Stress Questionnaire Answer Date [...] place to sleep or slept in a long term (including now)? Patient declined 11/28/2023 Education Answer Date Recorded What is the highest level of school you have completed or the highest degree you have received? 12th grade 04/03/2023 Sexually Active Control Partners Comments Not Currently Comments No Sex and Gender Information Value Date Recorded Sex Assigned at Female 11/22/2023 11:58 AM CASHIER CHECKER Legal Sex Female 11:34 PM CDT Gender Identity Female 11/22/2023 11:58 AM CASHIER CHECKER Sexual Orientation Not on file Occupation Industry [...] Dept 02/21/24 Office Visit Amor Pitt MD [facility] 02/12/24 Office Visit Rebecca Liu APRN, PUBLIC HEALTH PROGRAM MANAGER [facility] 12/05/23 Office Visit [facility] MD [facility] 11/20/23 Office Visit Ronald Shaffer, IDENTIFICATION PRINTING MACHINE SETTER, PUBLIC HEALTH PROGRAM MANAGER [facility] 10/10/23 Office Visit Rebecca Liu IDENTIFICATION PRINTING MACHINE SETTER, PUBLIC HEALTH PROGRAM MANAGER [facility] 08/24/23 Office Visit Ranjit Linder MD [facility] [place] 08/02/23 Office Visit Marco Woods MD [facility] 05/01/23 Office Visit Marco Woods MD [facility] 04/18/23 Office Visit Marco Woods MD [facility] [place] 04/03/23 Office [facility] Showing recent visits within past 365 days and meeting all other requirements Future Appointments Date Type Provider Dept 03/12/24 Appointment [facility] MD [facility] Showing future appointments within next 90 days and meeting all other requirements documented in this encounter Plan of Treatment Upcoming Encounters Date Type Department Care Team (Late st Contact Info) Description 04/02/2025 2:30 PM CDT EMG [facility] Neuro[facility]iences [facility] 2 [place] [address] Marco Woods MD #[address] [address] Discharge Disposition: Discharged to home or Selfcare 04/14/2025 6:30 PM CDT Office Visit [facility] - Family Medicine [facility] #2 [place] [address] Mraco Woods MD #[address] [address] 05/11/2025 9:45 AM CDT [facility] - [facility] - [place] #2 [place] [address] Kirsten Niño MD #2 [facility] [address] [place] [address] 06/19/2025 10:00 AM CDT [facility] #2 [place] [address] Michelle Mendes APRN, PUBLIC HEALTH PROGRAM MANAGER #2 [facility] [address] [place] [address] documented as of this encounter Visit Diagnoses Not on filedocumented in this encounter Additional Health Concerns Infection Onset Date Last Indicated Resolved Time COVID - 19 06/25/2024 06/25/2024 06/25/2024 6:36 PM CDT Assessment Noted Time PHQ-9 Depression Total Score: 18 024 10:00 AM CASHIER CHECKER documented as of this encounter Care Teams Chili Powder Mixer Relationship Specialty Start Date End Date Marco Woods MD #2 [facility] [address] [place] [address] PCP - General Family Medicine 11/22/17 Kirsten Niño MD #[address] [address] Consulting Physician Endocrinology 07/17/22 Chin Burrows MD #[address] [address] Consulting Physician General Surgery 11/22/22 Michelle Mendes APRN, PUBLIC HEALTH PROGRAM MANAGER #[address] [facility] [address] [address] [address] Nurse Practitioner Advanced Practice Nurse 08/14/22 Chantelle Nix APRN, PUBLIC HEALTH PROGRAM MANAGER #2 [place] [address] Nurse Practitioner Advanced Practice Nurse 02/19/24 documented as of this encounter
--- OUTSIDE RECORDS SUMMARY | 2025-03-30 08:25 | XMS_ITS | Encounter Summary ---
Author Organization [facility] Address [address] [place] [address] Phone Care Team Providers Care Mathematics Department Chair Name Role Phone Marco Woods MD Primary Care Provider Kirsten Niño MD Unavailable Chin Burrows MD Unavailable Kelsea Root RN Unavailable Unavailable Michelle Mendes APRN, PRINTER'S DEVIL Unavailable Chantelle Nix APRN, PRINTER'S DEVIL Unavailable Reason for Visit * Reason Comments Medication Refill Encounter Details Date Type Department Care Team (Late st Contact Info) Description 06/15/2021 [facility] [address] [place] [address] Marco Woods MD #2 [facility] [place] [address] Medication Refill Social History Tobacco Use Types Packs/Day Years Used Date Smoking Tobacco: Never Smokeless Tobacco: Former Alcohol Use Standard Drinks/Week Comments Not Currently 0 (1 standard drink = 0.6 oz pur e alcohol) Sexually Active Control Partners Comments Not Currently Comments No Sex and Gender Information Value Date Recorded Sex Assigned at Female 11/22/2023 11:58 AM METAL WELDER Legal Sex Female 11:34 PM CDT Gender Identity Female 11/22/2023 11:58 AM METAL WELDER Sexual Orientation Not on file Occupation [...] [place] 02/22/21 Office Visit Marco Woods MD [facility] 02/07/21 Office Visit Marco Woods MD [facility] 12/21/20 Telemedicine Mirtha Steiner APN, DREW [facility] [place] 11/09/20 Office Visit Marco Woods MD [facility] 09/06/20 Office Visit Marco Woods MD [facility] Showing recent visits within past 365 days and meeting all other requirements Future Appointments Date Type Provider Dept 06/28/21 Appointment Marco Woods MD [facility] Showing future appointments within next 90 days and meeting all other requirements documented in this encounter Plan of Treatment Upcoming Encounters Date Type Department Care Team (Late st Contact Info) Description 04/02/2025 2:30 PM CDT [facility] 2 [place] [address] Marco Woods MD #2 [facility] [address] [place] [address] Discharge Disposition: Discharged to home or Selfcare 04/14/2025 6:30 PM CDT [facility] - [place] #2 [place] [address] Marco Woods MD #2 [facility] [address] [place] [address] 05/11/2025 9:45 AM CDT [facility] Visit [facility] - Endocrinology - [place] #2 [place] [address] Kirsten Niño MD #2 [facility] [address] [place] [address] 06/19/2025 10:00 AM CDT Office Visit [facility] - Pulmonology & Sleep Medicine [facility] #2 [place] [address] Michelle Mendes APRN, PRINTER'S DEVIL #2 [facility] [address] [place] [address] documented as of this encounter Visit Diagnoses Not on filedocumented in this encounter Additional Health Concerns Infection Onset Date Last Indicated Resolved Time COVID - 19 06/29/2022 06/29/2022 07/09/2022 12:1 6 AM CDT COVID - 19 11/20/2022 11/20/2022 11/24/2022 8:51 AM METAL WELDER COVID - 19 12/31/2022 12/31/2022 01/10/2023 12:1 8 AM CDT COVID - 19 Confirmed 12/31/2022 12/31/2022 023 12:17 AM CDT COVID - 19 06/01/2023 06/01/2023 06/01/2023 8:16 AM CDT COVID - 19 11/01/2023 11/01/2023 11/11/2023 12:1 6 AM METAL WELDER COVID - 19 06/25/2024 06/25/2024 06/25/2024 6:36 PM CDT Assessment Noted Time PHQ-9 Depression Total Score: 0 11/22/19 10:00 AM METAL WELDER documented as of this encounter Care Teams Mathematics Department Chair Relationship Specialty Start Date End Date Marco Woods MD #[address] [facility] [address] [place] [address] PCP - General Family Medicine 11/22/17 Kirsten Niño MD #2 [facility] [address] [place] [address] Consulting Physician Endocrinology 07/17/22 Chin Burrows MD #2 [facility] [address] [place] [address] Consulting Physician General Surgery 11/22/22 Kelsea Root RN [place] Guest Relation Officer 06/15/23 08/26/23 Michelle Mendes APRN, PRINTER'S DEVIL [facility] [address] [place] [address] Nurse Practitioner Advanced Practice Nurse 08/14/22 Chantelle Nix APRN, PRINTER'S DEVIL #2 [place] [address] Nurse Practitioner Advanced Practice Nurse 02/19/24 documented as of this encounter
--- OUTSIDE RECORDS SUMMARY | 2025-03-30 08:25 | XMS_ITS | Referral Summary ---
Author Organization [facility] Building [address] Address [address] [place] [address] Care Team Providers Care Forensic Structural Engineer Name Role Phone Nikhil Robles MD Primary Care Provider Allergies Active Allergy Reactions Criticality Noted Date [...] Nasal saline spray (Simply saline, Little Remedies, [place], [place]) 2 second sprays or 2 squeezes into [...] on file Legal Sex Female 6:03 PM DISTRIBUTION SYSTEMS SERVICEPERSON Gender Identity Not on file Sexual Orientation Not on file Last Filed Vital Signs Vital Sign Reading Time Taken Comments Blood Pressure 170/75 09/19/2023 10:51 AM DISTRIBUTION SYSTEMS SERVICEPERSON Pulse 114 09/19/2023 2:00 PM DISTRIBUTION SYSTEMS SERVICEPERSON Temperature 36.6 C (97.8 F) 09/19/2023 10:51 AM DISTRIBUTION SYSTEMS SERVICEPERSON Respiratory Rate 18 09/19/2023 10:51 AM DISTRIBUTION SYSTEMS SERVICEPERSON Oxygen Saturation 98% 09/19/2023 10:51 AM DISTRIBUTION SYSTEMS SERVICEPERSON Inhaled Oxygen Concentration - - Weight 80.3 kg (177 lb) 09/18/2023 3:16 PM DISTRIBUTION SYSTEMS SERVICEPERSON Height 157.5 cm (5' 2) 09/18/2023 3:16 PM DISTRIBUTION SYSTEMS SERVICEPERSON Body Mass Index 32.37 09/18/2023 3:16 PM DISTRIBUTION SYSTEMS SERVICEPERSON Plan of Treatment Not on file Insurance [facility] MEDICARE ADVANTAGE [facility] Address: [facility] [address] [place] [address] [facility] MDCR HMO REF [facility] MEDICARE Address: [place] [phone] [facility] MEDICARE ADVANTAGE [facility] MEDIC[facility] Address: [place] [address] Advance Directives For more information, please contact: [phone] * Full Code (Latest Code Status on File) Date Activated Date Inactivated Comments 09/18/2023 2:35 PM 09/19/2023 6:39 PM * Full Code Date Activated Date Inactivated Comments 09/18/2023 12:47 PM 09/18/2023 2:35 PM Care Teams Forensic Structural Engineer Relationship Specialty Start Date End Date Nikhil Robles MD [address] [place] [address] PCP - General Emergency Medicine 03/12/24
--- OUTSIDE RECORDS SUMMARY | 2025-03-30 08:25 | XMS_ITS | Encounter Summary ---
Author Organization [facility] Address [address] [place] [address] Phone Care Team Providers Care Director Of Collections Name Role Phone Marco Woods MD Primary Care Provider Kirsten Niño MD Unavailable Chin Burrows MD Unavailable [phone] Kelsea Root RN Unavailable Unavailable Michelle Mendes APRN, CLOSING MACHINE OPERATOR Unavailable Chantelle Nix APRN, CLOSING MACHINE OPERATOR Unavailable Reason for Visit * Reason Comments Medication Refill Encounter Details Date Type Department Care Team (Late st Contact Info) Description 02/01/2023 Refill [facility] [place] #2 [place] [phone] Deanna Leavitt Humera, PAC [address] [place] [address] Medication Refill Social History Tobacco Use Types Packs/Day Years Used Date Smoking Tobacco: Never Smokeless Tobacco: Never Alcohol Use Standard Drinks/Week Comments Not Currently 0 (1 standard drink = 0.6 oz pur e alcohol) Sexually Active Control Partners Comments Not Currently Comments No Sex and Gender Information Value Date Recorded Sex Assigned at Female 11/22/2023 11:58 AM LONGWALL SHEARER OPERATOR Legal Sex Female 11:34 PM CDT Gender Identity Female 11/22/2023 11:58 AM LONGWALL SHEARER OPERATOR Sexual Orientation Not on file Occupation [...] 04/02/2025 2:30 PM CDT [facility] [address] [place] [address] Marco Woods MD #[address] [address] Discharge Disposition: Discharged to home or Selfcare 04/14/2025 6:30 PM CDT Office Visit [facility] - [place] #2 [place] [address] Marco Woods MD #2 [facility] [address] [place] [address] 05/11/2025 9:45 AM CDT Office Visit [facility] - [place] #2 [place] [address] Kirsten Niño MD #[address] [address] 06/19/2025 10:00 AM CDT [facility] - Pulmonology & [facility] Medicine [facility] #2 [place] [address] Michelle Mendes APRN, CLOSING MACHINE OPERATOR #2 [facility] [address] [place] [address] documented as of this encounter Visit Diagnoses Diagnosis Gastroesophageal reflux disease without esophagitis Esophageal reflux documented in this encounter Additional Health Concerns Infection Onset Date Last Indicated Resolved Time COVID - 19 06/01/2023 06/01/2023 06/01/2023 8:16 AM CDT COVID - 19 11/01/2023 11/01/2023 11/11/2023 12:1 6 AM LONGWALL SHEARER OPERATOR COVID - 19 06/25/2024 06/25/2024 06/25/2024 6:36 PM CDT Assessment Noted Time PHQ-9 Depression Total Score: 0 11/22/19 10:00 AM LONGWALL SHEARER OPERATOR documented as of this encounter Care Teams Director Of Collections Relationship Specialty Start Date End Date Marco Woods MD #[address] [address] PCP - General Family Medicine 11/22/17 Kirsten Niño MD #2 [facility] [address] [place] [address] Consulting Physician Endocrinology 07/17/22 Chin Burrows MD #2 [facility] [address] [place] [address] Consulting Physician General Surgery 11/22/22 Kelsea Root, JUWAN [place] Electrician Station Assistant 06/15/23 08/26/23 Michelle Mendes APRN, CLOSING MACHINE OPERATOR #2 [facility] [address] [place] [address] Nurse Practitioner Advanced Practice Nurse 08/14/22 Chantelle Nix APRN, CLOSING MACHINE OPERATOR #2 [place] [address] Nurse Practitioner Advanced Practice Nurse 02/19/24 documented as of this encounter
--- OUTSIDE RECORDS SUMMARY | 2025-03-30 08:25 | XMS_ITS | Encounter Summary ---
Author Organization [facility] Address [address] [place] [address] Phone Care Team Providers Care Inventory Specialist Name Role Phone Marco Woods MD Primary Care Provider Kirsten Niño MD Unavailable Chin Burrows MD Unavailable [phone] Michelle Mendes APRN, WAISTLINE JOINER LOCKSTITCH Unavailable Chantelle Nix MOLDER, WAISTLINE JOINER LOCKSTITCH Unavailable Encounter Details Date Type Department Care Team (Late st Contact Info) Description 03/04/2024 Telephone [facility] [address] [place] [phone] Marco Woods MD #2 [facility] [place] [address] Social History Tobacco Use Types Packs/Day Years Used Date Smoking Tobacco: Never Smokeless Tobacco: Never Alcohol Use Standard Drinks/Week Comments Not Currently 0 (1 standard drink = 0.6 oz pur e alcohol) [facility] Utilities Answer Date Recorded In the [...] declined 11/28/2023 How often do you attend mormonism or scientologist serv ices? Patient declined 11/28/2023 Do you belong to any clubs o r organizations such as mormonism groups, unions, fraternal or athletic groups, or [...] Total Score - Questions 1-9 18 10/24 [facility] - [...] Sex Assigned at Female 11/22/2023 11:58 AM APPLIED ANTHROPOLOGIST Legal Sex Female 11:34 PM CDT Gender Identity Female 11/22/2023 11:58 AM APPLIED ANTHROPOLOGIST Sexual Orientation Not on file Occupation Industry Job Start Date Job End Date disabled Not on file Not on file Not on file documented as of this encounter Plan of Treatment Upcoming Encounters Date Type Department Care Team (Late st Contact Info) Description 04/02/2025 2:30 PM CDT EMG [facility] 2 [place] [address] Marco Woods MD #[address] [address] Discharge Disposition: Discharged to home or Selfcare 04/14/2025 6:30 PM CDT [facility] Visit [facility] #2 [place] [address] Marco Woods MD #[address] [address] 05/11/2025 9:45 AM CDT Office Visit [facility] - Endocr[facility]ology - [place] #2 [place] [phone] Kirsten Niño MD #[address] [address] 06/19/2025 10:00 AM CDT Office Visit [facility] Medical [facility] - Pulmonology & Sleep Medicine - [place] #2 [place] [address] Michelle Mendes APRN, WAISTLINE JOINER LOCKSTITCH #2 [facility] [address] [place] [address] documented as of this encounter Visit Diagnoses Not on filedocumented in this encounter Additional Health Concerns Infection Onset Date Last Indicated Resolved Time COVID - 19 06/25/2024 06/25/2024 06/25/2024 6:36 PM CDT Assessment Noted Time PHQ-9 Depression Total Score: 18 024 10:00 AM APPLIED ANTHROPOLOGIST documented as of this encounter Care Teams Inventory Specialist Relationship Specialty Start Date End Date Marco Woods MD #[address] [address] PCP - General Family Medicine 11/22/17 Kirsten Niño MD #[address] [address] Consulting Physician Endocrinology 07/17/22 Chin Burrows MD #[address] [address] Consulting Physician General Surgery 11/22/22 Michelle Mendes APRN, WAISTLINE JOINER LOCKSTITCH #2 [facility] [address] Nurse Practitioner Advanced Practice Nurse 08/14/22 Chantelle Nix APRN, WAISTLINE JOINER LOCKSTITCH #2 [place] [address] Nurse Practitioner Advanced Practice Nurse 02/19/24 documented as of this encounter
--- OUTSIDE RECORDS SUMMARY | 2025-03-30 08:25 | XMS_ITS | Encounter Summary ---
Author Organization [facility] Address [address] [place] [address] Phone Care Team Providers Care Box Finisher Name Role Phone Marco Woods MD Primary Care Provider [phone] Kirsten Niño MD Unavailable Chin Burrows MD Unavailable Kelsea Root RN Unavailable Unavailable Michelle Mendes APRN, SKIRT PANEL ASSEMBLER Unavailable Chantelle Nix APRN, SKIRT PANEL ASSEMBLER Unavailable Reason for Visit * Reason Comments Medication Refill Encounter Details Date Type Department Care Team (Late st Contact Info) Description 04/23/2021 Refill [facility] - [place] #2 [place] [phone] Dani Garrett, DO [address] [facility] [place] [address] Medication Refill Social History Tobacco Use Types Packs/Day Years Used Date Smoking Tobacco: Never Smokeless Tobacco: Former Alcohol Use Standard Drinks/Week Comments Not Currently 0 (1 standard drink = 0.6 oz pur e alcohol) Sexually Active Control Partners Comments Not Currently Comments No Sex and Gender Information Value Date Recorded Sex Assigned at Female 11/22/2023 11:58 AM MSW Legal Sex Female 11:34 PM CDT Gender Identity Female 11/22/2023 11:58 AM MSW Sexual Orientation Not on file Occupation Industry [...] 04/02/2025 2:30 PM CDT EMG [facility] 2 [place] [address] Marco Woods MD #[address] [address] Discharge Disposition: Discharged to home or Selfcare 04/14/2025 6:30 PM CDT Office [facility] Medical [facility] - Family Medicine [facility] #2 [place] [address] Marco Woods MD #[address] [address] 05/11/2025 9:45 AM CDT Office Visit [facility] - Endocrinology [facility] #2 [place] [address] Kirsten Niño MD #[address] [address] 06/19/2025 10:00 AM CDT Office Visit [facility] - Pulmonology & Sleep Medicine - [place] #[address] [place] [address] Michelle Mendes APRN, SKIRT PANEL ASSEMBLER #2 [facility] [address] [place] [address] documented as of this encounter Visit Diagnoses Not on filedocumented in this encounter Additional Health Concerns Infection Onset Date Last Indicated Resolved Time COVID - 19 06/29/2022 06/29/2022 07/09/2022 12:1 6 AM CDT COVID - 19 11/20/2022 11/20/2022 11/24/2022 8:51 AM MSW COVID - 19 12/31/2022 12/31/2022 01/10/2023 12:1 8 AM CDT COVID - 19 Confirmed 12/31/2022 12/31/2022 023 12:17 AM CDT COVID - 19 06/01/2023 06/01/2023 06/01/2023 8:16 AM CDT COVID - 19 11/01/2023 11/01/2023 11/11/2023 12:1 6 AM MSW COVID - 19 06/25/2024 06/25/2024 06/25/2024 6:36 PM CDT Assessment Noted Time PHQ-9 Depression Total Score: 0 11/22/19 10:00 AM MSW documented as of this encounter Care Teams Box Finisher Relationship Specialty Start Date End Date Marco Woods MD #2 [facility] [address] [place] [address] PCP - General Family Medicine 11/22/17 Kirsten Niño MD #2 [facility] [address] [place] [address] Consulting Physician Endocrinology 07/17/22 Chin Burrows MD #2 [facility] [address] [place] [address] Consulting Physician General Surgery 11/22/22 Kelsea Root, RN [place] Driver Guide 06/15/23 08/26/23 Michelle Mendes APRN, SKIRT PANEL ASSEMBLER #2 [facility] [address] [place] [address] Nurse Practitioner Advanced Practice Nurse 08/14/22 Chantelle Nix APRN, SKIRT PANEL ASSEMBLER #[address] [place] [address] Nurse Practitioner Advanced Practice Nurse 02/19/24 documented as of this encounter
--- OUTSIDE RECORDS SUMMARY | 2025-03-30 08:25 | XMS_ITS | Data Portability ---
Author Organization [facility] Address [address] [place] [address] Assessment Encounter Date Assessment Date Assessment LastModified by Organization Details LastModified Time 04/01/2015 04/01/2015 URI sxs appear to be viral--pt is to let us know if sxs worsen. [email or web address] Not available 04/01/2015 12:45:52 02/26/2017 02/26/2017 Stop symbicort. Pt sees an ENT and a blocker metal base. [email or web address] Not available 02/26/2017 12:21:36 Plan of Treatment Reminders Order Date Submit Date Provider Last Modified By Organization Details Last Modified Time Details Appointments None recorded. Lab None recorded. Referral None recorded. Procedures None recorded. Surgeries None recorded. Imaging None recorded. Medication Orders ProAir HFA 90 mcg/actuat ion aerosol inhaler 2016 017 INTERFACE [employer] #[id number], [address] [place], [place], [id number], 7 12:20:23 cyclobenza ilia 10 mg tablet 2015 016 pcunningha m7 [id number], [address] [place], [place], [id number], 7 12:01:57 Voltaren 1 % topical gel 2015 016 INTERFACE [facility], [address] [place], [place], [id number], 6 15:58:06 Qvar 40 mcg/actuat ion Metered Aerosol oral inhaler 2014 015 pcunningha m7 [facility], [address] [place], [place], [id number], 7 12:02:24 montelukas t 10 mg tablet 2014 015 [facility], [address] [place], [place], [id number], 5 17:54:35 Flovent HFA 220 mcg/actuat ion aerosol inhaler 2014 015 [email or web address] [facility], [address] [place], [place], [id number], 7 10:05:57 Patient TargetsNo targets recorded. Patient Instructions Encounter Date Encounter Id Patient Instructions Last Modified By Organization Details Last Modified Time 04/01/2015 [id number] When You Want to Lose Weight: Care Instructions [email or web address] Not available 04/07/2015 16:40:13 hypothyroidism: care instructions [email or web address] Not available 04/07/2015 16:40:13 10/01/2015 [id number] controlling your asthma: care instructions [email or web address] Not available 10/04/2015 09:15:49 learning about asthma [email or web address] Not available 10/04/2015 09:15:49 allergies: care instructions [email or web address] Not available 10/01/2015 17:54:35 managing your allergies: care instructions [email or web address] Not available 10/01/2015 17:54:35 When You Want to Lose Weight: Care Instructions [email or web address] Not available 10/01/2015 17:54:35 hypothyroidism: care instructions [email or web address] Not available 10/01/2015 17:54:35 shortness of breath: care instructions [email or web address] Not available 10/01/2015 17:54:35 03/31/2016 [id number] When You Want to Lose Weight: Care Instructions Not available 03/31/2016 16:03:45 hypothyroidism: care instructions Not available 03/31/2016 16:03:45 02/26/2017 [id number] controlling your asthma: care instructions Not available [...] t No observ ation record ed. [facility] [address] [place], [address], 02/05/2015 13:56:27 03/12/20 15 imagi ng/di agnos tic resul t No observ ation record ed. [email or web address] Not Available 2014 15:37:15 01/10/20 16 01/10/2016 imagi ng/di agnos tic resul t No observ ation record ed. [email or web address] [facility] [address] [place], [address], 01/11/2016 00:46:44 02/01/20 17 01/31/2017 CT, abdom en + pelvi s, w/ contr ast No observ ation record ed. Not Available 2016 09:39:13 02/14/20 17 02/13/2017 MAMMO , diagn ostic , bilat eral, w/ CAD No observ ation record ed. [facility] [address] [place], [address], 02/14/2017 15:32:05 Result Notes None recorded. Problems Name Problem SNOMED Code Status Onset Date Resolution Date Notes Provider Name and Address Organization Details Recorded Time Arthritis 0917156 Active Anmol Stafford MD Attn: Accountin g,[address] [facility], [place], [address], [facility] 5 16:29:02 Anemia 418759279 Active Anmol Stafford MD Attn: Accountin g,[address] [facility], [place], [address], [place] - [facility] 5 23:14:44 Morbid obesity 705882990 Active Anmol Stafford MD Attn: Accountin g,[address] [facility], [place], [address], [place] [facility] 6 15:57:59 Hypothyroidism 94210926 Active Anmol Stafford MD Attn: Accountin g,[address] [facility], [place], [address], [place] - [facility] 6 15:57:59 Allergic rhinitis 00119817 Active Anmol Stafford MD Attn: Accountin g,[address] [facility], [place], [address], [place] - [facility] 5 17:54:34 Asthma 678653398 Active Anmol Stafford MD Attn: Accountin g,[address] [facility], [place], [address], [place] - [facility] 5 17:54:34 Dyspnea 885465719 Active Anmol Stafford MD Attn: Accountin g,[address] [facility], [place], [address], [place] - [facility] 5 13:11:38 Problem Notes None recorded. Medical Equipment None Reported. Allergies Allergen ID Allergen Name Allergen Category Reaction Reaction Severity Criticality Documentation Date Start Date Code Code System Note Provider Name and Address Organization Details Recorded Time 9364 codeine medicatio n Not available Not available Not available 10/06/2014 2670 RxNorm BEKAH Kendrick [place] - [facility] 4 12:03:29 9365 Non-stero idal anti-infl ammatory agent (product) medicatio n Not available Not available Not available 10/06/2014 37505 005 SNOMED BEKAH Kend[place] - [facility] 4 12:03:29 Medications Name Sig Start Date [...] Available Not Available No t Available Fluvirin 1657-0019 45 mcg (15 mcg x 3)/0.5 mL [...] Available No t Available Vitals Date Recorded Body height Body weight Body mass index (BMI) Oxygen saturation Oxygen saturation in Arterial blood by Pulse oximetry Heart rate Respiratory rate Body temperature Systolic blood pressure Diastolic blood pressure Provider Name and Address Organization Details Last Updated DateTime 7 154.94 cm 827569. 61 g 44.2 kg/m2 95 % 95 % 72 /min 18 /min 98.2 [degF] 128 mm[Hg] 84 mm[Hg] Ana M gayle [facility] 7 12:00:46 Date Recorded Respiratory rate Oxygen saturation Oxygen saturation in Arterial blood by Pulse oximetry Body weight Body temperature Heart rate Body mass index (BMI) Body height Systolic blood pressure Diastolic blood pressure Provider Name and Address Organization Details Last Updated DateTime 5 24 /min 97 % 97 % 957849. 683280 g 98.9 [degF] 84 /min 42.7 kg/m2 154.94 cm 102 mm[Hg] 60 mm[Hg] Lesa Rojo RN [facility] 5 10:21:25 Date Recorded Respiratory rate Body height Body mass index (BMI) Heart rate Body weight Systolic blood pressure Diastolic blood pressure Provider Name and Address Organization Details Last Updated DateTime 6 16 /min 154.94 cm 43.6 kg/m2 82 /min 566194. 345126 g 152 mm[Hg] 82 mm[Hg] Ana M gayle [facility] 6 15:30:51 Date Recorded Respiratory rate Body weight Oxygen saturation Oxygen saturation in Arterial blood by Pulse oximetry Body height Heart rate Body mass index (BMI) Systolic blood pressure Diastolic blood pressure Provider Name and Address Organization Details Last Updated DateTime 5 24 /min 871438. 756464 g 95 % 95 % 154.94 cm 103 /min 43.7 kg/m2 144 mm[Hg] 82 mm[Hg] Azalea Mcconnell MA [facility] 5 10:46:58 Date Recorded Respiratory rate Body weight Oxygen saturation Oxygen saturation in Arterial blood by Pulse oximetry Body height Heart rate Body mass index (BMI) Systolic blood pressure Diastolic blood pressure Provider Name and Address Organization Details Last Updated DateTime 5 24 /min 186506. 665555 g 95 % 95 % 154.94 cm 87 /min 43.6 kg/m2 114 mm[Hg] 76 mm[Hg] Azalea Mcconnell MA [facility] 5 15:29:26 Social History None recorded. Functional Status None recorded. Mental Status None recorded. Family History Nothing Reported. Medical History Condition Response Thyroid Problems Y Asthma Y Gynecological HistoryNo gynecological history recorded. Obstetrics History GPAL:G 0 P 0 0 0 0 Immunizations Vaccine Type Date Status Note Provider Nam e and Address Organization Details Recorded Time Hep A-Hep B 5 completed Not Available [facility] 11/08/2019 02:32:57 tetanus toxoid, unspecified formulation 4 completed BEKAH Nicole [facility] 10/16/2017 17:59:15 pneumococcal, unspecified formulation 9 completed BEKAH Nicole [facility] 10/16/2017 17:59:31 Past Encounters Encounter ID Performer Location Encounter Start Date Encounter Closed Date Diagnosis/Indication Diagnosis SNOMED-CT Code Diagnosis ICD10 Code Diagnosis Note [id number] Anmol Stafford MD [facility] [address] [place] [id number] 10/06/2014 11:37:33 10/06/2014 13:05:59 Dyspnea 272287630 [id number] Anmol Stafford MD [facility] [address] [place] [id number] 11/04/2014 10:00:37 11/04/2014 13:09:05 Dyspnea 608161260 [id number] Anmol Stafford MD [place] [address] [place] [id number] 03/04/2015 09:42:41 03/04/2015 15:14:58 Active or passive immunization 811419876 [id number] Anmol Stafford MD [place] [address] [place] [id number] 04/01/2015 10:26:56 04/01/2015 13:40:36 Arthritis 1315257 Hypothyroidism 88576662 Morbid obesity 270974096 [id number] Anmol Stafford MD [place] [address] [place] [id number] 10/01/2015 15:07:02 10/01/2015 17:58:34 Dyspnea 626328848 R06.00 Allergic rhinitis 425889 04 J30.9 Hypothyroidism 03540091 E03.9 Morbid obesity 046798920 E66.01 Asthma 237805595 J45.90 9 [id number] Anmol Stafford MD [place] [address] [place] [id number] 03/31/2016 15:18:57 03/31/2016 16:41:34 Hypothyroidism 64968843 E03.9 Morbid obesity 482381202 E66.01 History of fall 55306061 9 Z91.81 [id number] Anmol Stafford MD [facility] [address] [place] [id number] 02/26/2017 11:53:16 02/28/2017 09:40:12 Asthma 440667991 J45.909 Morbid obesity 905286054 E66.01 Hypothyroidism 58515837 E03.9 Health Concerns Section Related Observation LastModified by Organization Detai ls LastModified Time None Recorded Concern Status LastModified by Organization Details LastModified Time None Recorded Advance Directives Directive None Recorded Payers Encounter Date Sequence Insurance Name Policy Number Policy Elizabeth Covered Member ID Elizabeth Member ID Guarantor Name 03/04/2015 1 [place] Yudi Henderson [id number] Yudi Henderson 04/01/2015 1 [place] Yudi Fostero [id number] Yudi Fostero 10/01/2015 1 [place] Yudi Fostero [id number] Yudi Fostero 03/31/2016 1 [facility] (MEDICARE REPLACEMENT/AD VANTAGE - HMO) [id number] Yudi Fostero [id number] Yudi Fostero 03/31/2016 2 [place] WHEN [place]ARE OR MEDICARE REPLACEMENT PRIMARY) Yudi Fostero [id number] Yudi Fostero 02/26/2017 1 [facility] (MEDICARE REPLACEMENT/AD VANTAGE - HMO) [id number] Yudi Fostero [id number] Yudi Fostero 02/26/2017 2 [place] OR [place]IC[place] REPLACEMENT PRIMARY) Yudi Fostero [id number] Yudi Henderson Notes Date Note Type Note Provider Name and Address Organization Details Recorded Time 04/01/2015 text/html Patient presents for a regular checkup--she describes sxs of an URI since this morning but no production of sputum. Anmol Stafford MD Attn: Accounting,[address] [place], [address], [facility] 04/07/2015 16:29:25 10/01/2015 text/html Pt is dyspneic--no longer seen by a piano stringer. She states that she does much better on Qvar than the Flonase. Anmol Stafford MD Attn: Accounting,[address] [place], [address], [place] 10/01/2015 17:55:03 03/31/2016 text/html Pt fell on March 27, 2016 at home. She is somewhat better now four days later. Anmol Stafford MD Attn: Accounting,[address] [place], [address], [place] 03/31/2016 16:44:28 02/26/2017 text/html Pt is now better but states that she suffered from an asthma attack for one week. Anmol Stafford MD Attn: Accounting,[address] [place], [address], [facility] 02/28/2017 00:32:09 OBGyn Episode No OBEpisode recorded.
--- OUTSIDE RECORDS SUMMARY | 2025-03-30 08:25 | XMS_ITS | Encounter Summary ---
Author Organization [facility] Address [address] [place] [address] Phone Care Team Providers Care Surgical Instrument Repair Specialist Name Role Phone Marco Woods MD Primary Care Provider Kirsten Niño MD Unavailable Chin Burrows MD Unavailable [phone] Michelle Mendes APRN, HOME COMFORT ADVISOR Unavailable Chantelle Nix TOP CARRIER, HOME COMFORT ADVISOR Unavailable Reason for Visit * Reason Comments Medication Refill Encounter Details Date Type Department Care Team (Late st Contact Info) Description 03/18/2024 Refill [facility] Medical Group - Family Medicine - [place] [address] [place] [phone] Marco Woods MD [address] [address] Medication Refill Social History Tobacco Use Types Packs/Day Years Used Date Smoking Tobacco: Never Smokeless Tobacco: Never Alcohol Use Standard Drinks/Week Comments Not Currently 0 (1 standard drink = 0.6 oz pur e alcohol) [facility] Utilities Answer Date Recorded In the [...] declined 11/28/2023 How often do you attend voodoo or zoroastrian serv ices? Patient declined 11/28/2023 Do you belong to any clubs o r organizations such as voodoo groups, unions, fraternal or athletic groups, or [...] 1-9 18 10/24 [facility] - Occupational Stress Questionnaire Answer Date [...] place to sleep or slept in a detention (including now)? Patient declined 11/28/2023 Education Answer Date Recorded What is the highest level of school you have completed or the highest degree you have received? 12th grade 04/03/2023 Sexually Active Control Partners Comments Not Currently Comments No Sex and Gender Information Value Date Recorded Sex Assigned at Female 11/22/2023 11:58 AM BATCHING OPERATOR Legal Sex Female 11:34 PM CDT Gender Identity Female 11/22/2023 11:58 AM BATCHING OPERATOR Sexual Orientation Not on file Occupation [...] Dept 03/12/24 Office Visit Marco Woods MD [facility] [place] 02/21/24 Office Visit Amor Pitt MD [facility] [place] 02/12/24 Office Visit Rebecca Liu, TOP CARRIER, HOME COMFORT ADVISOR [facility] [place] 12/05/23 Office Visit Marco Woods MD [facility] [place] 11/20/23 Office Visit Ronald Shaffer, TOP CARRIER, HOME COMFORT ADVISOR [facility] [place] 10/10/23 Office Visit Rebecca Liu, TOP CARRIER, HOME COMFORT ADVISOR [facility] [place] 08/24/23 Office Visit Ranjit Linder MD [facility] [place] 08/02/23 Office Visit Marco Woods MD [facility] [place] 05/01/23 Office Visit Marco Woods MD [facility] [place] 04/18/23 Office Visit [facility] Showing recent visits within past 365 days and meeting all other requirements Future Appointments Date Type Provider Dept 04/09/24 Appointment Marco Woods MD [facility] [place] Showing future appointments within next 90 days and meeting all other requirements * Telephone Encounter - Amada Orozco RN - 03/19/2024 9:39 AM CDT Images from the original note were not included. Dexlansoprazole Dispensed Days Supply Quantity Provider Pharmacy DEXLANSOPRAZOLE 60 MG CPDR 02/21/2024 28 28 Capsule Maria Antonia Galeana MD [facility] - [facility]... DEXLANSOPRAZOLE 60 MG CPDR 01/29/2024 28 28 Capsule Maria Antonia Galeana MD [facility] - [place]. documented in this encounter Plan of Treatment Upcoming Encounters Date Type Department Care Team (Late st Contact Info) Description 04/02/2025 2:30 PM CDT [facility]iences [facility] [address] [place] [address] Marco Woods MD #[address] [address] Discharge Disposition: Discharged to home or Selfcare 04/14/2025 6:30 PM CDT Office Visit [facility] Medical [facility] Family Medicine [facility] #2 [place] [address] Marco Woods MD #2 [facility] [address] [place] [address] 05/11/2025 9:45 AM CDT Office Visit [facility] Endocrinology [facility] #2 [place] [address] Kirsten Niño MD #2 [facility] [address] [place] [address] 06/19/2025 10:00 AM CDT Office Visit [facility] - Pulmonology & Sleep Medicine [facility] #2 [place] [address] Michelle Mendes APRN, HOME COMFORT ADVISOR #2 [facility] [address] [place] [address] documented as of this encounter Visit Diagnoses Not on filedocumented in this encounter Additional Health Concerns Infection Onset Date Last Indicated Resolved Time COVID - 19 06/25/2024 06/25/2024 06/25/2024 6:36 PM CDT Assessment Noted Time PHQ-9 Depression Total Score: 18 024 10:00 AM BATCHING OPERATOR documented as of this encounter Care Teams Surgical Instrument Repair Specialist Relationship Specialty Start Date End Date Marco Woods MD #[address] [address] PCP - General Family Medicine 11/22/17 Kirsten Niño MD #[address] [address] Consulting Physician Endocrinology 07/17/22 Chin Burrows MD #[address] [address] Consulting Physician General Surgery 11/22/22 Michelle Mendes APRN, HOME COMFORT ADVISOR #[address] [address] Nurse Practitioner Advanced Practice Nurse 08/14/22 Chantelle Nix APRN, HOME COMFORT ADVISOR #2 [place] [address] Nurse Practitioner Advanced Practice Nurse 02/19/24 documented as of this encounter
--- OUTSIDE RECORDS SUMMARY | 2025-03-30 08:25 | XMS_ITS | Encounter Summary ---
Author Organization [facility] Address [address] [place] [address] Phone Care Team Providers Care Pallet Sorter Name Role Phone Marco Woods MD Primary Care Provider Kirsten Niño MD Unavailable Chin Burrows MD Unavailable Kelsea Root RN Unavailable Unavailable Michelle Mendes APRN, CIRCULATION WORKER Unavailable [phone] Chantelle Nix APRN, CIRCULATION WORKER Unavailable Reason for Visit * Reason Comments Medication Refill Encounter Details Date Type Department Care Team (Late st Contact Info) Description 02/11/2023 Refill [facility] Medical [facility] - Family Medicine [facility] #2 [place] [phone] Marco Woods MD [address] [address] Medication Refill Social History Tobacco Use Types Packs/Day Years Used Date Smoking Tobacco: Never Smokeless Tobacco: Never Alcohol Use Standard Drinks/Week Comments Not Currently 0 (1 standard drink = 0.6 oz pur e alcohol) Sexually Active Control Partners Comments Not Currently Comments No Sex and Gender Information Value Date Recorded Sex Assigned at Female 11/22/2023 11:58 AM CONTINUOUS IMPROVEMENT CONSULTANT Legal Sex Female 11:34 PM CDT Gender Identity Female 11/22/2023 11:58 AM CONTINUOUS IMPROVEMENT CONSULTANT Sexual Orientation Not on file Occupation [...] [place] 01/23/23 Office Visit Rebecca Liu APRN, CIRCULATION WORKER [facility] [place] 12/05/22 Office Visit Marco Woods MD [facility] [place] 10/25/22 Office Visit Marco Woods MD [facility] [place] 08/29/22 Office Visit Ronald Shaffer APRN, [facility] [place] 07/12/22 Office Visit Jany Hernandez PAC [facility] [place] 06/23/22 Office Visit Marco Woods MD [facility] [place] 05/19/22 Office Visit Marco Woods MD [facility] [place] Showing recent visits within [...] 04/02/2025 2:30 PM CDT [facility]iences [facility] 2 [place] [address] Marco Woods MD #2 [facility] [address] [place] [address] Discharge Disposition: Discharged to home or Selfcare 04/14/2025 6:30 PM CDT Office Visit [facility] - Family Medicine - [place] #2 [place] [address] Marco Woods MD #2 [facility] [address] [place] [address] 05/11/2025 9:45 AM CDT Office Visit [facility] - Endocrinology - [place] #2 [place] [address] Kirsten Niño MD #2 [facility] [address] [place] [address] 06/19/2025 10:00 AM CDT Office Visit [facility] - Pulmonology & Sleep Medicine - [place] #2 [place] [address] Michelle Mendes APRN, DRWE #2 [facility] [address] [place] [address] documented as of this encounter Visit Diagnoses Not on filedocumented in this encounter Additional Health Concerns Infection Onset Date Last Indicated Resolved Time COVID - 19 06/01/2023 06/01/2023 06/01/2023 8:16 AM CDT COVID - 19 11/01/2023 11/01/2023 11/11/2023 12:1 6 AM CONTINUOUS IMPROVEMENT CONSULTANT COVID - 19 06/25/2024 06/25/2024 06/25/2024 6:36 PM CDT Assessment Noted Time PHQ-9 Depression Total Score: 0 11/22/19 10:00 AM CONTINUOUS IMPROVEMENT CONSULTANT documented as of this encounter Care Teams Pallet Sorter Relationship Specialty Start Date End Date Marco Woods MD #2 [facility] [address] [place] [address] PCP - General Family Medicine 11/22/17 Kirsten Niño MD #2 [facility] [address] [place] [address] Consulting Physician Endocrinology 07/17/22 Chin Burrows MD #2 [facility] [address] [place] [address] Consulting Physician General Surgery 11/22/22 Kelsea Root RN [place] Poultry Vaccinator 06/15/23 08/26/23 Michelle Mendes APRN, CIRCULATION WORKER #2 [facility] [address] [place] [address] Nurse Practitioner Advanced Practice Nurse 08/14/22 Chantelle Nix APRN, CIRCULATION WORKER #2 [place] [address] Nurse Practitioner Advanced Practice Nurse 02/19/24 documented as of this encounter
--- OUTSIDE RECORDS SUMMARY | 2025-03-30 08:25 | XMS_ITS | Encounter Summary ---
Author Organization [facility] Address [address] [place] [address] Phone Care Team Providers Care Forest Fire Warden Name Role Phone Marco Woods MD Primary Care Provider Kirsten Niño MD Unavailable Chin Burrows MD Unavailable Michelle Mendes APRN, MANAGER INCOME TAX Unavailable Chantelle Nix PRODUCTION GRADER, MANAGER INCOME TAX Unavailable Encounter Details Date Type Department Care Team (Late st Contact Info) Description 02/12/2024 Telephone [facility] [address] [place] [phone] Marco Woods MD #2 [facility] [place] [address] Social History Tobacco Use Types Packs/Day Years Used Date Smoking Tobacco: Never Smokeless Tobacco: Never Alcohol Use Standard Drinks/Week Comments Not Currently 0 (1 standard drink = 0.6 oz pur e alcohol) [facility] Utilities Answer Date Recorded In [...] How often do you attend mormonism or yarsani serv ices? Patient declined 11/28/2023 Do you [...] 1-9 18 10/24 [facility] - Occupational [...] place to sleep or slept in a jail (including now)? Patient declined 11/28/2023 Education Answer Date Recorded What is the highest level of school you have completed or the highest degree you have received? 12th grade 04/03/2023 Sexually Active Control Partners Comments Not Currently Comments No Sex and Gender Information Value Date Recorded Sex Assigned at Female 11/22/2023 11:58 AM WINDOW CUTTER Legal Sex Female 11:34 PM CDT Gender Identity Female 11/22/2023 11:58 AM WINDOW CUTTER Sexual Orientation Not on file Occupation Industry Job Start Date Job End Date disabled Not on file Not on file Not on file documented as of this encounter Plan of Treatment Upcoming Encounters Date Type Department Care Team (Late st Contact Info) Description 04/02/2025 2:30 PM CDT [facility] 2 [place] [address] Marco Woods MD #[address] [address] Discharge Disposition: Discharged to home or Selfcare 04/14/2025 6:30 PM CDT [facility] #2 [place] [address] Marco Woods MD #[address] [address] 05/11/2025 9:45 AM CDT Office Visit [facility] Medical Group - Endocrinology - [place] #2 [place] [address] Kirsten Niño MD #[address] [address] 06/19/2025 10:00 AM CDT Office Visit [facility] Medical [facility] - Pulmonology & Sleep Medicine - [place] #2 [place] [address] Michelle Mendes APRN, MANAGER INCOME TAX #2 [facility] [address] [place] [address] documented as of this encounter Visit Diagnoses Not on filedocumented in this encounter Additional Health Concerns Infection Onset Date Last Indicated Resolved Time COVID - 19 06/25/2024 06/25/2024 06/25/2024 6:36 PM CDT Assessment Noted Time PHQ-9 Depression Total Score: 18 024 10:00 AM WINDOW CUTTER documented as of this encounter Care Teams Forest Fire Warden Relationship Specialty Start Date End Date Marco Woods MD #[address] [address] PCP - General Family Medicine 11/22/17 Kirsten Niño MD #[address] [address] Consulting Physician Endocrinology 07/17/22 Chin Burrows MD #[address] [address] Consulting Physician General Surgery 11/22/22 Michelle Mendes APRN, MANAGER INCOME TAX [facility] [address] Nurse Practitioner Advanced Practice Nurse 08/14/22 Chantelle Nix APRN, MANAGER INCOME TAX #2 [place] [address] Nurse Practitioner Advanced Practice Nurse 02/19/24 documented as of this encounter
--- OUTSIDE RECORDS SUMMARY | 2025-03-30 08:25 | XMS_ITS | Encounter Summary ---
Author Organization [facility] Address [address] [place] [address] Phone Care Team Providers Care Fire Protection Engineering Technician Name Role Phone Marco Woods MD Primary Care Provider Kirsten Niño MD Unavailable Chin Burrows MD Unavailable Kelsea Root RN Unavailable Unavailable Michelle Mendes APRN, DICER MACHINE OPERATOR Unavailable Chantelle Nix APRN, DICER MACHINE OPERATOR Unavailable Reason for Visit * Reason Comments Medication Refill Encounter Details Date Type Department Care Team (Late st Contact Info) Description 08/06/2021 [facility] [address] [place] [address] Marco Woods MD #2 [facility] [address] Medication Refill Social History Tobacco Use Types Packs/Day Years Used Date Smoking Tobacco: Never Smokeless Tobacco: Former Alcohol Use Standard Drinks/Week Comments Not Currently 0 (1 standard drink = 0.6 oz pur e alcohol) Sexually Active Control Partners Comments Not Currently Comments No Sex and Gender Information Value Date Recorded Sex Assigned at Female 11/22/2023 11:58 AM ELECTRONIC GAMING DEVICE SUPERVISOR Legal Sex Female 11:34 PM CDT Gender Identity Female 11/22/2023 11:58 AM ELECTRONIC GAMING DEVICE SUPERVISOR Sexual Orientation Not on file Occupation [...] [place] 12/21/20 Telemedicine Mirtha Steiner APN, [facility] [place] 11/09/20 Office Visit Marco Woods MD [...] Info) Description 04/02/2025 2:30 PM CDT [facility] Neurosciences Clinic 2 [place] [address] Marco Woods MD #2 [facility] [address] [place] [address] Discharge Disposition: Discharged to home or Selfcare 04/14/2025 6:30 PM CDT Office Visit [facility] Medical Group - Family Medicine - [place] #2 [place] [address] Marco Woods MD #2 [facility] [address] [place] [address] 05/11/2025 9:45 AM CDT Office Visit [facility] - Endocrinology - [place] #2 [place] [address] Kirsten Niño MD #2 [facility] [address] [place] [address] 06/19/2025 10:00 AM CDT Office Visit [facility] Medical [facility] - Pulmonology & Sleep Medicine - [place] #2 [facility] [place] [address] Michelle Mendes APRN, DICER MACHINE OPERATOR #2 [facility] [address] [place] [address] documented as of this encounter Visit Diagnoses Not on filedocumented in this encounter Additional Health Concerns Infection Onset Date Last Indicated Resolved Time COVID - 19 06/29/2022 06/29/2022 07/09/2022 12:1 6 AM CDT COVID - 19 11/20/2022 11/20/2022 11/24/2022 8:51 AM ELECTRONIC GAMING DEVICE SUPERVISOR COVID - 19 12/31/2022 12/31/2022 01/10/2023 12:1 8 AM CDT COVID - 19 Confirmed 12/31/2022 12/31/2022 023 12:17 AM CDT COVID - 19 06/01/2023 06/01/2023 06/01/2023 8:16 AM CDT COVID - 19 11/01/2023 11/01/2023 11/11/2023 12:1 6 AM ELECTRONIC GAMING DEVICE SUPERVISOR COVID - 19 06/25/2024 06/25/2024 06/25/2024 6:36 PM CDT Assessment Noted Time PHQ-9 Depression Total Score: 0 11/22/19 10:00 AM ELECTRONIC GAMING DEVICE SUPERVISOR documented as of this encounter Care Teams Fire Protection Engineering Technician Relationship Specialty Start Date End Date Marco Woods MD #2 [facility] [address] [place] [address] PCP - General Family Medicine 11/22/17 Kirsten Niño MD #2 [facility] [address] [place] [address] Consulting Physician Endocrinology 07/17/22 Chin Burrows MD #2 [facility] [address] [place] [address] Consulting Physician General Surgery 11/22/22 Kelsea Root, JUWAN [place] Nitroglycerin Distributor 06/15/23 08/26/23 Michelle Mendes APRN, DICER MACHINE OPERATOR #2 [facility] [address] [place] [address] Nurse Practitioner Advanced Practice Nurse 08/14/22 Chantelle Nix APRN, DICER MACHINE OPERATOR #2 [place] [address] Nurse Practitioner Advanced Practice Nurse 02/19/24 documented as of this encounter
--- OUTSIDE RECORDS SUMMARY | 2025-03-30 08:25 | XMS_ITS | Encounter Summary ---
Author Organization [facility] Address [address] [place] [address] Phone Care Team Providers Care Lens Polisher Hand Name Role Phone Marco Woods MD Primary Care Provider Kristen Niño MD Unavailable Chin Burrows MD Unavailable [phone] Kelsea Root RN Unavailable Unavailable Michelle Mendes APRN, ASIAN ART CURATOR Unavailable Chantelle Nix APRN, ASIAN ART CURATOR Unavailable Reason for Visit * Reason Comments Medication Refill Encounter Details Date Type Department Care Team (Late st Contact Info) Description 05/09/2023 Refill [facility] - Family Medicine - [place] #[address] [place] [phone] Marco Woods MD [address] [address] Medication Refill Social History Tobacco Use Types [...] Sex Assigned at Female 11/22/2023 11:58 AM PREBOARDER Legal Sex Female 11:34 PM CDT Gender Identity Female 11/22/2023 11:58 AM PREBOARDER Sexual Orientation Not on file Occupation Industry [...] reordered on 05/10/2023 by Mirtha Steiner APRN, ASIAN ART CURATOR. * Telephone Encounter - Amada Orozco RN - 05/10/2023 1:50 PM CDT duplicate * Telephone Encounter - Lesly Danielle RN - 05/09/2023 3:08 PM CDT Duplicate request documented in this encounter Plan of Treatment Upcoming Encounters Date Type Department Care Team (Late st Contact Info) Description 04/02/2025 2:30 PM CDT [facility] Neurosciences Clinic 2 [place] [address] Marco Woods MD #[address] [address] Discharge Disposition: Discharged to home or Selfcare 04/14/2025 6:30 PM CDT [facility] Visit [facility] - Family Medicine - [place] #2 [place] [address] Marco Woods MD #2 [facility] [address] [place] [address] 05/11/2025 9:45 AM CDT [facility] [place] #2 [place] [address] Kirsten Niño MD #2 [facility] [address] [place] [address] 06/19/2025 10:00 AM CDT [facility] #2 [place] [address] Michelle Mendes APRN, ASIAN ART CURATOR #2 [facility] [address] [place] [address] documented as of this encounter Visit Diagnoses Diagnosis Anxiety Anxiety state, unspecified documented in this encounter Additional Health Concerns Infection Onset Date Last Indicated Resolved Time COVID - 19 06/01/2023 06/01/2023 06/01/2023 8:16 AM CDT COVID - 19 11/01/2023 11/01/2023 11/11/2023 12:1 6 AM PREBOARDER COVID - 19 06/25/2024 06/25/2024 06/25/2024 6:36 PM CDT Assessment Noted Time PHQ-9 Depression Total Score: 0 11/22/19 10:00 AM PREBOARDER documented as of this encounter Care Teams Lens Polisher Hand Relationship Specialty Start Date End Date Marco Woods MD #2 [facility] [address] [place] [address] PCP - General Family Medicine 11/22/17 Kirsten Niño MD #2 [facility] [address] [place] [address] Consulting Physician Endocrinology 07/17/22 Chin Burrows MD #2 [facility] [address] [place] [address] Consulting Physician General Surgery 11/22/22 Kelsea Root RN [place] Cpas 06/15/23 08/26/23 Michelle Mendes APRN, ASIAN ART CURATOR #2 [facility] [address] [place] [address] Nurse Practitioner Advanced Practice Nurse 08/14/22 Chantelle Nix APRN, ASIAN ART CURATOR #2 [place] [address] Nurse Practitioner Advanced Practice Nurse 02/19/24 documented as of this encounter
--- OUTSIDE RECORDS SUMMARY | 2025-03-30 08:25 | XMS_ITS | Encounter Summary ---
Author Organization [facility] Address [address] [place] [address] Phone Care Team Providers Care Refrigeration Mechanic Name Role Phone Marco Woods MD Primary Care Provider Kirsten Niño MD Unavailable Chin Burrows MD Unavailable [phone] Kelsea Root RN Unavailable Unavailable Michelle Mendes APRN, BOOKBINDER APPRENTICE Unavailable [phone] Chantelle Nix APRN, BOOKBINDER APPRENTICE Unavailable Reason for Visit * Reason Comments Medication Refill Encounter Details Date Type Department Care Team (Late st Contact Info) Description 02/11/2022 Refill [facility] - Pulmonology & Sleep Medicine - [place] [address] [place] [phone] Michelle Mendes APRN, BOOKBINDER APPRENTICE #[address] [address] Medication Refill Social History Tobacco Use Types Packs/Day Years Used Date Smoking Tobacco: Never Smokeless Tobacco: Former Alcohol Use Standard Drinks/Week Comments Not Currently 0 (1 standard drink = 0.6 oz pur e alcohol) Sexually Active Control Partners Comments Not Currently Comments No Sex and Gender Information Value Date Recorded Sex Assigned at Female 11/22/2023 11:58 AM FINANCE ADVISOR Legal Sex Female 11:34 PM CDT Gender Identity Female 11/22/2023 11:58 AM FINANCE ADVISOR Sexual Orientation Not on file Occupation Industry [...] Provider Dept 04/19/22 Appointment Marco Woods MD [facility] Showing future appointments within next 90 days and meeting all other requirements documented in this encounter Plan of Treatment Upcoming Encounters Date Type Department Care Team (Late st Contact Info) Description 04/02/2025 2:30 PM CDT EMG [facility] 2 [place] [address] Marco Woods MD #2 [facility] [address] [place] [address] Discharge Disposition: Discharged to home or Selfcare 04/14/2025 6:30 PM CDT Office Visit [facility] Medical [facility] - Family Medicine - [place] #2 [place] [address] Marco Woods MD #2 [facility] [address] [place] [address] 05/11/2025 9:45 AM CDT Office Visit [facility] - Endocrinology - [place] #2 [facility] [place] [address] Kirsten Niño MD #2 [facility] [address] [place] [address] 06/19/2025 10:00 AM CDT Office Visit [facility] - Pulmonology & Sleep Medicine - [place] #2 [place] [address] Michelle Mendes APRN, DREW #2 [facility] [address] [place] [address] documented as of this encounter Visit Diagnoses Diagnosis PNAR (perennial non-allergic rhinitis) Chronic rhinitis documented in this encounter Additional Health Concerns Infection Onset Date Last Indicated Resolved Time COVID - 19 06/29/2022 06/29/2022 07/09/2022 12:1 6 AM CDT COVID - 19 11/20/2022 11/20/2022 11/24/2022 8:51 AM FINANCE ADVISOR COVID - 19 12/31/2022 12/31/2022 01/10/2023 12:1 8 AM CDT COVID - 19 Confirmed 12/31/2022 12/31/2022 023 12:17 AM CDT COVID - 19 06/01/2023 06/01/2023 06/01/2023 8:16 AM CDT COVID - 19 11/01/2023 11/01/2023 11/11/2023 12:1 6 AM FINANCE ADVISOR COVID - 19 06/25/2024 06/25/2024 06/25/2024 6:36 PM CDT Assessment Noted Time PHQ-9 Depression Total Score: 0 11/22/19 10:00 AM FINANCE ADVISOR documented as of this encounter Care Teams Refrigeration Mechanic Relationship Specialty Start Date End Date Marco Woods MD #2 [facility] [address] [place] [address] PCP - General Family Medicine 11/22/17 Kirsten Niño MD #2 [facility] [address] [place] [address] Consulting Physician Endocrinology 07/17/22 Chin Burrows MD #2 [facility] [address] [place] [address] Consulting Physician General Surgery 11/22/22 Kelsea Root RN [place] Wallpaper Inspector 06/15/23 08/26/23 Michelle Mendes APRN, BOOKBINDER APPRENTICE #2 [facility] [address] [place] [address] Nurse Practitioner Advanced Practice Nurse 08/14/22 Chantelle Nix APRN, BOOKBINDER APPRENTICE #2 [place] [address] Nurse Practitioner Advanced Practice Nurse 02/19/24 documented as of this encounter
--- OUTSIDE RECORDS SUMMARY | 2025-03-30 08:25 | XMS_ITS | Encounter Summary ---
Author Organization [facility] Address [address] [place] [address] Phone Care Team Providers Care Securities Adviser Name Role Phone Marco Woods MD Primary Care Provider Kirsten Niño MD Unavailable Chin Burrows MD Unavailable Kelsea Root RN Unavailable Unavailable Michelle Mendes APRN, MERCHANDISE PLANNER Unavailable Chantelle Nix APRN, MERCHANDISE PLANNER Unavailable Reason for Visit * Reason Comments Medication Refill Encounter Details Date Type Department Care Team (Late st Contact Info) Description 04/25/2021 Refill [facility] [address] [place] [address] Mirtha Steiner APRN, MERCHANDISE PLANNER #2 [facility] [place] [address] Medication Refill Social History Tobacco Use Types Packs/Day Years Used Date Smoking Tobacco: Never Smokeless Tobacco: Former Alcohol Use Standard Drinks/Week Comments Not Currently 0 (1 standard drink = 0.6 oz pur e alcohol) Sexually Active Control Partners Comments Not Currently Comments No Sex and Gender Information Value Date Recorded Sex Assigned at Female 11/22/2023 11:58 AM ASSISTANT CHIEF TRAIN DISPATCHER Legal Sex Female 11:34 PM CDT Gender Identity Female 11/22/2023 11:58 AM ASSISTANT CHIEF TRAIN DISPATCHER Sexual Orientation Not on file Occupation Industry [...] - Family Medicine - Mirtha Haq APN, MERCHANDISE PLANNER 5 months ago Asthma, unspecified asthma severity, unspecified whether complicated, unspecified whether persistent [facility] - Family Medicine - Marco Menchaca MD Upcoming Appointments Future Appointments In 2 months Marco Woods MD [facility] Family Medicine - [place], [facility] In 2 months Kirsten Niño MD [facility] Endocrinology [facility] In 3 months Michelle Mendes APN, MERCHANDISE PLANNER [facility] Pulmonology & Sleep Medicine [facility] PARTNER MARKETING INTERN - Recent and Past Visits Recent Visits Date Type Provider Dept 03/25/21 Office Visit Marco Woods MD [facility] 02/22/21 Office Visit Marco Woods MD [facility] 02/07/21 Office Visit Marco Woods MD [facility] 12/21/20 Telemedicine Mirtha Steiner APN, MERCHANDISE PLANNER [facility] 11/09/20 Office Visit Marco Woods MD [facility] 09/06/20 Office Visit Marco Woods MD [facility] 06/09/20 Office Visit Marco Woods MD [facility] 04/27/20 Office Visit Marco Woods MD [facility] Showing recent visits within past 460 days with a meds authorizing provider and meeting all other requirements Future Appointments Date Type Provider Dept 06/28/21 Appointment Marco [facility] MD [facility] Showing future appointments within next 90 days with a meds authorizing provider and meeting all other requirements documented in this encounter Plan of Treatment Upcoming Encounters Date Type Department Care Team (Late st Contact Info) Description 04/02/2025 2:30 PM CDT EMG [facility] 2 [place] [address] Marco Woods MD #[address] [address] Discharge Disposition: Discharged to home or Selfcare 04/14/2025 6:30 PM CDT Office Visit [facility] #2 [place] [address] Marco Woods MD #2 [facility] [address] [place] [address] 05/11/2025 9:45 AM CDT Office Visit [facility] Medical Group - Endocrinology - [place] #2 [place] [address] Kirsten Niño MD #2 [facility] [address] [place] [address] 06/19/2025 10:00 AM CDT [facility] - Pulmonology & Sleep Medicine - [place] #2 [place] [address] Michelle Mendes APRN, MERCHANDISE PLANNER #2 [facility] [address] [place] [address] documented as of this encounter Visit Diagnoses Not on filedocumented in this encounter Additional Health Concerns Infection Onset Date Last Indicated Resolved Time COVID - 19 06/29/2022 06/29/2022 07/09/2022 12:1 6 AM CDT COVID - 19 11/20/2022 11/20/2022 11/24/2022 8:51 AM ASSISTANT CHIEF TRAIN DISPATCHER COVID - 19 12/31/2022 12/31/2022 01/10/2023 12:1 8 AM CDT COVID - 19 Confirmed 12/31/2022 12/31/2022 023 12:17 AM CDT COVID - 19 06/01/2023 06/01/2023 06/01/2023 8:16 AM CDT COVID - 19 11/01/2023 11/01/2023 11/11/2023 12:1 6 AM ASSISTANT CHIEF TRAIN DISPATCHER COVID - 19 06/25/2024 06/25/2024 06/25/2024 6:36 PM CDT Assessment Noted Time PHQ-9 Depression Total Score: 0 11/22/19 10:00 AM ASSISTANT CHIEF TRAIN DISPATCHER documented as of this encounter Care Teams Securities Adviser Relationship Specialty Start Date End Date [facility] MD [facility] [address] [place] [address] PCP - General Family Medicine 11/22/17 Kirsten Niño MD #2 [facility] [address] [place] [address] Consulting Physician Endocrinology 07/17/22 Chin Burrows MD #2 [facility] [address] [place] [address] Consulting Physician General Surgery 11/22/22 Kelsea Root RN [place] Automation Controls Engineer 06/15/23 08/26/23 Michelle Mendes APRN, MERCHANDISE PLANNER [facility] [address] [place] [address] Nurse Practitioner Advanced Practice Nurse 08/14/22 Chantelle Nix APRN, MERCHANDISE PLANNER #2 [place] [address] Nurse Practitioner Advanced Practice Nurse 02/19/24 documented as of this encounter
--- OUTSIDE RECORDS SUMMARY | 2025-03-30 08:25 | XMS_ITS | Encounter Summary ---
Author Organization [facility] Address [address] [place] [address] Phone Care Team Providers Care Mental Hygiene Consultant Name Role Phone Marco Woods MD Primary Care Provider [phone] Kirsten Niño MD Unavailable Chin Burrows MD Unavailable Michelle Mendes APRN, DANCE CRITIC Unavailable [phone] Chantelle Nix APRN, DANCE CRITIC Unavailable Reason for Visit * Reason Comments Medication Refill Encounter Details Date Type Department Care Team (Late st Contact Info) Description 05/10/2024 Refill [facility] - Pulmonology & Sleep Medicine - [place] #2 [place] [phone] Michelle Mendes APRN, DANCE CRITIC #[address] [address] Medication Refill Social History Tobacco Use Types Packs/Day Years Used Date Smoking Tobacco: Never Smokeless Tobacco: Never Alcohol Use Standard Drinks/Week Comments Not Currently 0 (1 standard drink = 0.6 oz pur e alcohol) [facility] Utilities Answer Date Recorded In the past 12 months has Bom[employer], gas, oil, or water company threatened to [...] declined 11/28/2023 How often do you attend restorationist or orthodoxy serv ices? Patient declined 11/28/2023 Do you belong to any clubs o r organizations such as restorationist groups, unions, fraternal or athletic groups, or [...] Score - Questions 1-9 18 10/24 [facility] - Occupational Stress Questionnaire Answer Date [...] Sex Assigned at Female 11/22/2023 11:58 AM BOAT BUILDER Legal Sex Female 11:34 PM CDT Gender Identity Female 11/22/2023 11:58 AM BOAT BUILDER Sexual Orientation Not on file Occupation Industry [...] 04/02/2025 2:30 PM CDT EMG [facility] 2 [place] [address] Marco Woods MD #[address] [address] Discharge Disposition: Discharged to home or Selfcare 04/14/2025 6:30 PM CDT Office Visit [facility] Medical [facility] Family Medicine [facility] #2 [place] [address] Marco Woods MD #2 [facility] [address] [place] [address] 05/11/2025 9:45 AM CDT Office Visit [facility] Endocrinology [facility] #2 [place] [address] Kirsten Niño MD #[address] [address] 06/19/2025 10:00 AM CDT Office Visit [facility] - Pulmonology & Sleep Medicine [facility] #2 [place] [address] Michelle Mendes APRN, DANCE CRITIC #2 [facility] [address] [place] [address] documented as of this encounter Visit Diagnoses Not on filedocumented in this encounter Additional Health Concerns Infection Onset Date Last Indicated Resolved Time COVID - 19 06/25/2024 06/25/2024 06/25/2024 6:36 PM CDT Assessment Noted Time PHQ-9 Depression Total Score: 18 024 10:00 AM BOAT BUILDER documented as of this encounter Care Teams Mental Hygiene Consultant Relationship Specialty Start Date End Date Marco Woods MD #[address] [address] PCP - General Family Medicine 11/22/17 Kirsten Niño MD #[address] [address] Consulting Physician Endocrinology 07/17/22 Chin Burrows MD #[address] [address] Consulting Physician General Surgery 11/22/22 Michelle Mendes APRN, DANCE CRITIC #[address] [address] Nurse Practitioner Advanced Practice Nurse 08/14/22 Chantelle Nix APRN, DANCE CRITIC #2 [place] [address] Nurse Practitioner Advanced Practice Nurse 02/19/24 documented as of this encounter
--- OUTSIDE RECORDS SUMMARY | 2025-03-30 08:26 | XMS_ITS | Encounter Summary ---
Author Organization [facility] Address [address] [place] [address] Phone Care Team Providers Care Mental Tester Name Role Phone Marco Woods MD Primary Care Provider Kirsten Niño MD Unavailable Chin Burrows MD Unavailable [phone] Kelsea Root RN Unavailable Unavailable Michelle Mendes APRN, AGRICULTURAL ENGINEER Unavailable Chantelle Nix APRN, AGRICULTURAL ENGINEER Unavailable Encounter Details Date Type Department Care Team (Late st Contact Info) Description 01/03/2021 [facility] 1 [place] [address] Denise Arenas, ASSOCIATE PROFESSOR OF LITERATURE, AGRICULTURAL ENGINEER [address] [facility] [address] [place] [address] keno terminal operator use of drug (Primary Dx); Moderate depressed [...] Sex Assigned at Female 11/22/2023 11:58 AM SPINNING FRAME FIXER Legal Sex Female 11:34 PM CDT Gender Identity Female 11/22/2023 11:58 AM SPINNING FRAME FIXER Sexual Orientation Not on file Occupation Industry [...] Info) Description 04/02/2025 2:30 PM CDT EMG [facility] 2 [place] [address] Marco Woods MD #[address] [address] Discharge Disposition: Discharged to home or Selfcare 04/14/2025 6:30 PM CDT Office Visit [facility] Medical [facility] - Family Medicine [facility] #2 [place] [address] Marco Woods MD #[address] [address] 05/11/2025 9:45 AM CDT Office Visit [facility] - Endocrinology [facility] #2 [place] [address] Kirsten Niño MD #[address] [address] 06/19/2025 10:00 AM CDT Office Visit [facility] - Pulmonology & Sleep Medicine [facility] #[address] [place] [address] Michelle Mendes APRN, AGRICULTURAL ENGINEER #[address] [facility] [address] [address] documented as of this encounter Results * LITHIUM (01/05/2021 6:36 AM CDT) LITHIUM 0.7 0.6 - 1.2 mmol/L 01/05/2021 10:29 AM CDT [facility] Comment:Resulted from [facility]. Blood Venipuncture / Unknown 01/05/2021 6:36 AM CDT 01/05/2021 7:09 AM CDT Denise Arenas APRN, DREW CHEMISTRY ORDERABLES Final Result [facility] #1 [place] [address] * (ABNORMAL) FOLIC ACID (FOLATE) (01/05/2021 6:36 AM CDT) FOLATE 19.6(H) 3.1 - 17.5 ng/mL 01/05/2021 8:08 AM CDT [facility] IS THE PATIENT REQUIRED TO BE FASTING? No 01/05/2021 8:08 AM CDT [facility] Blood Venipuncture / Unknown 01/05/2021 6:36 AM CDT 01/05/2021 7:09 AM CDT Denise Arenas APRN, DREW CHEMISTRY ORDERABLES Final Result [facility] #1 [place] [address] * THYROXINE (T4) FREE (01/05/2021 6:36 AM CDT) Pathologist [facility] T4 FREE 1.0 0.9 - 1.7 ng/dL 01/05/2021 7:56 AM CDT [facility] Blood Venipuncture / Unknown 01/05/2021 6:36 AM CDT 01/05/2021 7:09 AM CDT us Denise Arenas ASSOCIATE PROFESSOR OF LITERATURE, AGRICULTURAL ENGINEER CHEMISTRY ORDERABLES Final Result [facility] #1 [place] [address] * (ABNORMAL) LIPID PANEL (01/05/2021 6:36 AM CDT) [facility] CHOLESTEROL 214(H) <=200 mg/dL 01/05/2021 7:56 AM CDT [facility] TRIGLYCERIDES 144 <150 mg/dL 01/05/2021 7:56 AM CDT [facility] HDL CHOLESTEROL 73.5 >40 mg/dL 7:56 AM CDT [facility] LDL 112 5 - 130 mg/dL 01/05/2021 7:56 AM CDT [facility] VLDL 29 5 - 55 mg/dL 01/05/2021 7:[address] [facility] CHOL/HDL RATIO 2.9 0.0 - 4.4 01/05/2021 7:56 AM CDT [facility] NON-HDL CHOLESTEROL 140.5(H) <130 mg/dL 01/05/2021 7:56 AM CDT [facility] IS THE PATIENT REQUIRED TO BE FASTING? No 01/05/2021 7:56 AM CDT [facility] Blood Venipuncture / Unknown 01/05/2021 6:36 AM CDT 01/05/2021 7:09 AM CDT us Denise S Thery ASSOCIATE PROFESSOR OF LITERATURE, AGRICULTURAL ENGINEER CHEMISTRY ORDERABLES Final Result Performing Organization Address [facility] Co de Phone Number [facility] #1 [place] [address] * HEMOGLOBIN A1C W/ ESTIMATED GLUCOSE (01/05/2021 6:36 AM CDT) HGB-A1C 5.1 4.0 - 6.0 % 01/05/2021 7:24 AM CDT [facility] Est Average Glucose 99.7 mg/dL 01/05/2021 7:[address] [facility] Blood Venipuncture / Unknown 01/05/2021 6:36 AM CDT 01/05/2021 7:[address] [facility] - 01/05/2021 7:24 AM CDT HEMOGLOBIN A1C: DIABETIC PATIENTS: WELL-CONTROLLED: 6.2 - 7.0 INTERMEDIATE WELL-CONTROLLED: 7.0 - 9.0 POORLY-CONTROLLED: >9.0 Denise Subramaniany ASSOCIATE PROFESSOR OF LITERATURE, AGRICULTURAL ENGINEER CHEMISTRY ORDERABLES Final Result Performing Organization Address [facility] Co de Phone Number [facility] #1 [place] [address] documented in this encounter Visit Diagnoses Diagnosis skilled nursing use of drug- Primary Encounter for long-term [...] - 19 11/20/2022 11/20/2022 11/24/2022 8:51 AM SPINNING FRAME FIXER COVID - 19 12/31/2022 12/31/2022 01/10/2023 12:1 8 AM CDT COVID - 19 Confirmed 12/31/2022 12/31/2022 023 12:17 AM CDT COVID - 19 06/01/2023 06/01/2023 06/01/2023 8:16 AM CDT COVID - 19 11/01/2023 11/01/2023 11/11/2023 12:1 6 AM SPINNING FRAME FIXER COVID - 19 06/25/2024 06/25/2024 06/25/2024 6:36 PM CDT Assessment Noted Time PHQ-9 Depression Total Score: 0 11/22/19 10:00 AM SPINNING FRAME FIXER documented as of this encounter Care Teams Mental Tester Relationship Specialty Start Date End Date Marco Woods MD #2 [facility] [address] [place] [address] PCP - General Family Medicine 11/22/17 Kirsten Niño MD #2 [facility] [address] [place] [address] Consulting Physician Endocrinology 07/17/22 Chin Burrows MD #2 [facility] [address] [place] [address] Consulting Physician General Surgery 11/22/22 Kelsea Root RN [place] Newsroom Intern 06/15/23 08/26/23 Michelle Mendes APRN, AGRICULTURAL ENGINEER #2 [facility] [address] [place] [address] Nurse Practitioner Advanced Practice Nurse 08/14/22 Chantelle Nix APRN, AGRICULTURAL ENGINEER #2 [place] [address] Nurse Practitioner Advanced Practice Nurse 02/19/24 documented as of this encounter
--- OUTSIDE RECORDS SUMMARY | 2025-03-30 08:26 | XMS_ITS | Encounter Summary ---
Author Organization [facility] Address [address] [place] [address] Phone Care Team Providers Care Milling Machine Tender Name Role Phone Marco Woods MD Primary Care Provider Kirsten Niño MD Unavailable Chin Burrows MD Unavailable Kelsea Root RN Unavailable Unavailable Michelle Mendes APRN, CERTIFIED SHORTHAND REPORTER Unavailable Chantelle Nix APRN, CERTIFIED SHORTHAND REPORTER Unavailable Reason for Visit * Reason Comments Medication Refill Encounter Details Date Type Department Care Team (Late st Contact Info) Description 11/27/2020 Refill [facility] - [facility] #2 [place] [id number] Marco Woods MD [address] [address] Medication Refill Social History Tobacco Use Types Packs/Day Years Used Date Smoking Tobacco: Never Smokeless Tobacco: Former Alcohol Use Standard Drinks/Week Comments Not Currently 0 (1 standard drink = 0.6 oz pur e alcohol) Sexually Active Control Partners Comments Not Currently Comments No Sex and Gender Information Value Date Recorded Sex Assigned at Female 11/22/2023 11:58 AM DEBURRING TECHNICIAN Legal Sex Female 11:34 PM CDT Gender Identity Female 11/22/2023 11:58 AM DEBURRING TECHNICIAN Sexual Orientation Not on file Occupation Industry Job Start Date Job End Date disabled Not on file Not on file Not on file COVID-19 Exposure Response Date Recorded In the last month, have you been in contact with someone who was confirmed or suspected to have Coronavirus / COVID-19? No / Unsure 11/09/2020 1:41 PM DEBURRING TECHNICIAN documented as of this encounter Miscellaneous Notes * Telephone Encounter - Marco Woods MD - 11/29/2020 6:52 AM CST Prescription approved. Please call in RRING TECHNICIAN * Telephone Encounter - Reina Paulson RN [...] severity, unspecified whether complicated, unspecified whether persistent [facility] Family Medicine - Marco Menchaca MD 2 months ago Asthma, unspecified asthma severity, unspecified whether complicated, unspecified whether persistent [facility] Marco Santacruz MD 5 months ago Preop examination [facility] Marco Santacruz MD 7 months ago Essential hypertension [facility] Family [facility] Marco Santacruz MD 11 months ago Essential hypertension [facility] Family Medicine Marco Santacruz MD Upcoming Appointments Future Appointments In [address] Mammography, [facility] In 3 weeks Kirsten Niño MD [facility] - End[facility] In 1 month Adrien Montoya MD [facility] PULMON[facility], [facility] In 2 months Marco Woods MD [facility] - Family [facility] PARALEGAL INSTRUCTOR - Recent and Past Visits Recent Visits Date Type Provider Dept 11/09/20 Office Visit Marco Woods MD [facility] [place] 09/06/20 Office Visit Marco Woods MD [facility] [place] 06/09/20 Office Visit [facility] [place] 04/27/20 Office Visit Marco Wodos MD [facility] [place] 12/24/19 Office Visit Marco Woods MD [facility] [place] 11/12/19 Office Visit Mirtha Steiner APN, CERTIFIED SHORTHAND REPORTER [facility]19 Office Visit Ronald Shaffer APN, CERTIFIED SHORTHAND REPORTER [facility] Showing recent visits within past 460 days with a meds authorizing provider and meeting all other requirements Future Appointments Date Type Provider Dept 02/07/21 Appointment Marco Woosd MD [facility] Showing future appointments within next 90 days with a meds authorizing provider and meeting all other requirements RRING TECHNICIAN documented in this encounter Plan of Treatment Upcoming Encounters Date Type Department Care Team (Late st Contact Info) Description 04/02/2025 2:30 PM CDT [facility] 2 [place] [address] Marco Woods MD #[address] [address] Discharge Disposition: Discharged to home or Selfcare 04/14/2025 6:30 PM CDT Office Visit [facility] #2 [place] [address] Marco Woods MD #[address] [address] 05/11/2025 9:45 AM CDT [facility] - [place] #2 [place] [address] Kirsten Niño MD #2 [facility] [address] [place] [address] 06/19/2025 10:00 AM CDT [facility] - [place] #2 [place] [address] Michelle Mendes APRN, CERTIFIED SHORTHAND REPORTER #2 [facility] [address] [place] [address] documented as of this encounter Visit Diagnoses Not on filedocumented in this encounter Additional Health Concerns Infection Onset Date Last Indicated Resolved Time COVID - 19 06/29/2022 06/29/2022 07/09/2022 12:1 6 AM CDT COVID - 19 11/20/2022 11/20/2022 11/24/2022 8:51 AM DEBURRING TECHNICIAN COVID - 19 12/31/2022 12/31/2022 01/10/2023 12:1 8 AM CDT COVID - 19 Confirmed 12/31/2022 12/31/2022 023 12:17 AM CDT COVID - 19 06/01/2023 06/01/2023 06/01/2023 8:16 AM CDT COVID - 19 11/01/2023 11/01/2023 11/11/2023 12:1 6 AM DEBURRING TECHNICIAN COVID - 19 06/25/2024 06/25/2024 06/25/2024 6:36 PM CDT Assessment Noted Time PHQ-9 Depression Total Score: 0 11/22/19 18 10:00 AM DEBURRING TECHNICIAN documented as of this encounter Care Teams Milling Machine Tender Relationship Specialty Start Date End Date Marco Woods MD #2 [facility] [address] [place] [address] PCP - General Family Medicine 11/22/17 Kirsten Niño MD #2 [facility] [address] [place] [address] Consulting Physician Endocrinology 07/17/22 Chin Burrows MD #2 [facility] [address] [place] [address] Consulting Physician General Surgery 11/22/22 Kelsea Root RN [place] Cook Specialty Foreign Food 06/15/23 08/26/23 Michelle Mendes APRN, CERTIFIED SHORTHAND REPORTER #2 [facility] [address] [place] [address] Nurse Practitioner Advanced Practice Nurse 08/14/22 Chantelle Nix APRN, CERTIFIED SHORTHAND REPORTER #2 [place] [address] Nurse Practitioner Advanced Practice Nurse 02/19/24 documented as of this encounter
--- OUTSIDE RECORDS SUMMARY | 2025-03-30 08:26 | XMS_ITS | Encounter Summary ---
Author Organization [facility] Address [address] [place] [address] Phone Care Team Providers Care Rattling Machine Tender Name Role Phone Marco Woods MD Primary Care Provider Kirsten Niño MD Unavailable Chin Burrows MD Unavailable Kelsea Root RN Unavailable Unavailable Michelle Mendes APRN, HALAL BUTCHER Unavailable Chantelle Nix APRN, HALAL BUTCHER Unavailable Reason for Visit * Reason Comments Medication Refill Encounter Details Date Type Department Care Team (Late st Contact Info) Description 09/03/2022 [facility] [address] [place] [address] Kirsten Niño MD #[address] [address] Medication Refill Social History Tobacco Use Types Packs/Day Years Used Date Smoking Tobacco: Never Smokeless Tobacco: Former Alcohol Use Standard Drinks/Week Comments Not Currently 0 (1 standard drink = 0.6 oz pur e alcohol) Sexually Active Control Partners Comments Not Currently Comments No Sex and Gender Information Value Date Recorded Sex Assigned at Female 11/22/2023 11:58 AM UNHAIRER Legal Sex Female 11:34 PM CDT Gender Identity Female 11/22/2023 11:58 AM UNHAIRER Sexual Orientation Not on file Occupation Industry Job Start Date Job End Date disabled Not on file Not on file Not on file COVID-19 Exposure Response Date Recorded In the last 10 days, have ambar u been in contact with someone who was confirmed or suspected to have Coronavirus/COVID-19? No / Unsure 08/31/2022 8:58 AM UNHAIRER documented as of this encounter Plan of Treatment Upcoming Encounters Date Type Department Care Team (Late st Contact Info) Description 04/02/2025 2:30 PM CDT EMG [facility] 2 [place] [address] Marco Woods MD #2 [facility] [address] [place] [address] Discharge Disposition: Discharged to home or Selfcare 04/14/2025 6:30 PM CDT [facility] - [place] #2 [place] [address] Marco Woods MD #2 [facility] [address] [place] [address] 05/11/2025 9:45 AM CDT Office Visit [facility] - Endocrinology - [place] #2 [place] [address] Kirsten Niño MD #2 [facility] [address] [place] [address] 06/19/2025 10:00 AM CDT Office Visit [facility] - Pulmonology & Sleep Medicine - [place] #2 [place] [address] Michelle Mendes APRN, HALAL BUTCHER #2 [facility] [address] [place] [address] documented as of this encounter Visit Diagnoses Not on filedocumented in this encounter Additional Health Concerns Infection Onset Date Last Indicated Resolved Time COVID - 19 11/20/2022 11/20/2022 11/24/2022 8:51 AM UNHAIRER COVID - 19 12/31/2022 12/31/2022 01/10/2023 12:1 8 AM CDT COVID - 19 Confirmed 12/31/2022 12/31/2022 023 12:17 AM CDT COVID - 19 06/01/2023 06/01/2023 06/01/2023 8:16 AM CDT COVID - 19 11/01/2023 11/01/2023 11/11/2023 12:1 6 AM UNHAIRER COVID - 19 06/25/2024 06/25/2024 06/25/2024 6:36 PM CDT Assessment Noted Time PHQ-9 Depression Total Score: 0 11/22/19 10:00 AM UNHAIRER documented as of this encounter Care Teams Rattling Machine Tender Relationship Specialty Start Date End Date Marco Woods MD #2 [facility] [address] [place] [address] PCP - General Family Medicine 11/22/17 Kirsten Niño MD #2 [facility] [address] [place] [address] Consulting Physician Endocrinology 07/17/22 Chin Burrows MD #2 [facility] [address] [place] [address] Consulting Physician General Surgery 11/22/22 Kelsea Root, RN [place] State Director 06/15/23 08/26/23 Michelle Mendes, CERTIFIED NURSING ASSISTANT, HALAL BUTCHER #2 [facility] [address] [place] [address] Nurse Practitioner Advanced Practice Nurse 08/14/22 Chantelle Nix APRN, HALAL BUTCHER #2 [place] [address] Nurse Practitioner Advanced Practice Nurse 02/19/24 documented as of this encounter
--- OUTSIDE RECORDS SUMMARY | 2025-03-30 08:26 | XMS_ITS | Encounter Summary ---
Author Organization [facility] Address [address] [place] [address] Phone Care Team Providers Care Customer Support Associate Name Role Phone Marco Woods MD Primary Care Provider [phone] Kirsten Niño MD Unavailable Chin Burrows MD Unavailable Kelsea Root RN Unavailable Unavailable Michelle Mendes APRN, STRUCTURES TECHNICIAN Unavailable Chantelle Nix APRN, STRUCTURES TECHNICIAN Unavailable Reason for Visit * Reason Comments Medication Refill Encounter Details Date Type Department Care Team (Late st Contact Info) Description 12/26/2020 [facility] [address] [place] [address] Mirtha Steiner APRN, STRUCTURES TECHNICIAN #2 [facility] [address] Medication Refill Social History Tobacco Use Types Packs/Day Years Used Date Smoking Tobacco: Never Smokeless Tobacco: Former Alcohol Use Standard Drinks/Week Comments Not Currently 0 (1 standard drink = 0.6 oz pur e alcohol) Sexually Active Control Partners Comments Not Currently Comments No Sex and Gender Information Value Date Recorded Sex Assigned at Female 11/22/2023 11:58 AM GUIDEMAN Legal Sex Female 11:34 PM CDT Gender Identity Female 11/22/2023 11:58 AM GUIDEMAN Sexual Orientation Not on file Occupation Industry Job Start Date Job End Date disabled Not on file Not on file Not on file COVID-19 Exposure Response Date Recorded In the last month, have you been in contact with someone who was confirmed or suspected to have Coronavirus / COVID-19? No / Unsure 12/27/2020 8:52 AM GUIDEMAN documented as of this encounter Miscellaneous Notes [...] Receipt confirmed by pharmacy (11/16/2020 10:27 AM GUIDEMAN) amLODIPine (NORVASC) 5 MG Tablet [[id number]] 1027 Status: Active Ordering user: Marco Woods MD 11/16/20 1027 Authorized by: Marco Woods MD Frequency: Daily 11/16/20 - Until Discontinued Released by: Marco Woods MD 11/16/20 1027 Pharmacy [id number] [place] documented in this encounter Plan of Treatment Upcoming Encounters Date Type Department Care Team (Late st Contact Info) Description 04/02/2025 2:30 PM CDT [facility] 2 [place] [address] Marco Woods MD #[address] [address] Discharge Disposition: Discharged to home or Selfcare 04/14/2025 6:30 PM CDT [facility] #2 [place] [address] Marco Woods MD #2 [facility] [address] [place] [address] 05/11/2025 9:45 AM CDT Office Visit [facility] - Endocrinology - [place] #2 [place] [address] Kirsten Niño MD #2 [facility] [address] [place] [address] 06/19/2025 10:00 AM CDT Office Visit [facility] - Pulmonology & Sleep Medicine - [place] #2 [place] [address] Michelle Mendes APRN, STRUCTURES TECHNICIAN #2 [facility] [address] [place] [address] documented as of this encounter Visit Diagnoses Not on filedocumented in this encounter Additional Health Concerns Infection Onset Date Last Indicated Resolved Time COVID - 19 06/29/2022 06/29/2022 07/09/2022 12:1 6 AM CDT COVID - 19 11/20/2022 11/20/2022 11/24/2022 8:51 AM GUIDEMAN COVID - 19 12/31/2022 12/31/2022 01/10/2023 12:1 8 AM CDT COVID - 19 Confirmed 12/31/2022 12/31/2022 023 12:17 AM CDT COVID - 19 06/01/2023 06/01/2023 06/01/2023 8:16 AM CDT COVID - 19 11/01/2023 11/01/2023 11/11/2023 12:1 6 AM GUIDEMAN COVID - 19 06/25/2024 06/25/2024 06/25/2024 6:36 PM CDT Assessment Noted Time PHQ-9 Depression Total Score: 0 11/22/19 18 10:00 AM GUIDEMAN documented as of this encounter Care Teams Customer Support Associate Relationship Specialty Start Date End Date Marco Woods MD #2 [facility] [address] [place] [address] PCP - General Family Medicine 11/22/17 Kirsten Niño MD #2 [facility] [address] [place] [address] Consulting Physician Endocrinology 07/17/22 Chin Burrows MD #2 [facility] [address] [place] [address] Consulting Physician General Surgery 11/22/22 Kelsea Root RN [place] Business Risk Analyst 06/15/23 08/26/23 Michelle Mendes APRN, STRUCTURES TECHNICIAN #2 [facility] [address] [place] [address] Nurse Practitioner Advanced Practice Nurse 08/14/22 Chantelle Nix APRN, STRUCTURES TECHNICIAN #2 [place] [address] Nurse Practitioner Advanced Practice Nurse 02/19/24 documented as of this encounter
--- OUTSIDE RECORDS SUMMARY | 2025-03-30 08:26 | XMS_ITS | Encounter Summary ---
Author Organization [facility] Address [address] [place] [address] Phone Care Team Providers Care Textile Dyer Name Role Phone Marco Woods MD Primary Care Provider [phone] Kirsten Niño MD Unavailable Chin Burrows MD Unavailable Kelsea Root RN Unavailable Unavailable Michelle Mendes APRN, RISK ADVISOR Unavailable Chantelle Nix APRN, RISK ADVISOR Unavailable Encounter Details Date Type Department Care Team (Late st Contact Info) Description 06/05/2023 Telephone [facility] Med Surg [address] [address] Sister Elisabeth Gonzalez, RN [place] [...] Sex Assigned at Female 11/22/2023 11:58 AM BLOOD BANK CALENDAR CONTROL CLERK Legal Sex Female 11:34 PM CDT Gender Identity Female 11/22/2023 11:58 AM BLOOD BANK CALENDAR CONTROL CLERK Sexual Orientation Not on file Occupation [...] 04/02/2025 2:30 PM CDT EMG [facility] Neuro[facility] 2 [place] [address] Marco Woods MD #[address] [address] Discharge Disposition: Discharged to home or Selfcare 04/14/2025 6:30 PM CDT Office Visit [facility] - Family Medicine [facility] #2 [place] [address] Marco Woods MD #2 [facility] [address] [place] [address] 05/11/2025 9:45 AM CDT Office Visit [facility] - Endocrinology [facility] #2 [place] [address] Kirsetn Niño MD #2 [facility] [address] [place] [address] 06/19/2025 10:00 AM CDT Office Visit [facility] - Pulmonology & Sleep Medicine - [place] #2 [place] [address] Michelle Mednes APRN, RISK ADVISOR #2 [facility] [address] [place] [address] documented as of this encounter Visit Diagnoses Not on filedocumented in this encounter Additional Health Concerns Infection Onset Date Last Indicated Resolved Time COVID - 19 11/01/2023 11/01/2023 11/11/2023 12:1 6 AM BLOOD BANK CALENDAR CONTROL CLERK COVID - 06/25/2024 06/25/2024 06/25/2024 6:36 PM CDT Assessment Noted Time PHQ-9 Depression Total Score: 0 11/22/19 18 10:00 AM BLOOD BANK CALENDAR CONTROL CLERK documented as of this encounter Care Teams Textile Dyer Relationship Specialty Start Date End Date Marco Woods MD #2 [facility] [address] [place] [address] PCP - General Family Medicine 11/22/17 Kirsten Niño MD #2 [facility] [address] [place] [address] Consulting Physician Endocrinology 07/17/22 Chin Burrows MD #2 [facility] [address] [place] [address] Consulting Physician General Surgery 11/22/22 Kelsea Root RN [place] Applications Engineering Manager 06/15/23 08/26/23 Michelle Mendes APRN, RISK ADVISOR #2 [facility] [address] [place] [address] Nurse Practitioner Advanced Practice Nurse 08/14/22 Chantelle Nix APRN, RISK ADVISOR #2 [place] [address] Nurse Practitioner Advanced Practice Nurse 02/19/24 documented as of this encounter
--- OUTSIDE RECORDS SUMMARY | 2025-03-30 08:26 | XMS_ITS | Encounter Summary ---
Author Organization [facility] Address [address] [place] [address] Phone Care Team Providers Care Audio Engineer Name Role Phone Marco Woods MD Primary Care Provider [phone] Kirsten Niño MD Unavailable Chin Burrows MD Unavailable [phone] Kelsea Root RN Unavailable Unavailable Michelle Mendes APRN, INSTRUMENT INSPECTOR Unavailable Chantelle Nix APRN, INSTRUMENT INSPECTOR Unavailable Reason for Visit * Reason Comments Medication Refill Encounter Details Date Type Department Care Team (Late st Contact Info) Description 03/30/2023 Refill [facility] - Family Medicine - [place] #2 [place] [address] Mirtha Steiner APRN, INSTRUMENT INSPECTOR #[address] [address] Medication Refill Social History Tobacco Use Types Packs/Day Years Used Date Smoking Tobacco: Never Smokeless Tobacco: Never Alcohol Use Standard Drinks/Week Comments Not Currently 0 (1 standard drink = 0.6 oz pur e alcohol) Sexually Active Control Partners Comments Not Currently Comments No Sex and Gender Information Value Date Recorded Sex Assigned at Female 11/22/2023 11:58 AM RAIL WALKER Legal Sex Female 11:34 PM CDT Gender Identity Female 11/22/2023 11:58 AM RAIL WALKER Sexual Orientation Not on file Occupation Industry [...] [place] 03/05/23 Office Visit [facility]07[facility]23 Office Visit Marco Woods MD [facility] [place] 01/23/23 Office Visit Rebecca Liu APRN, [facility] [place] 12/05/22 Office Visit Marco Woods MD [facility] [place] 10/25/22 Office Visit Marco Woods MD [facility] [place] Showing recent visits within past 182 days and meeting all other requirements Future Appointments Date Type Provider Dept 04/03/23 Appointment Marco Woods MD [facility] [place] 04/26/23 Appointment Marco Woods MD [facility] [place] Showing future appointments within next 90 [...] 04/02/2025 2:30 PM CDT EMG [facility] Neurosciences Clinic 2 [place] [address] Marco Woods MD #2 [facility] [address] [place] [address] Discharge Disposition: Discharged to home or Selfcare 04/14/2025 6:30 PM CDT Office Visit [facility] - Family Medicine - [place] #2 [place] [address] Marco Woods MD #2 [facility] [address] [place] [address] 05/11/2025 9:45 AM CDT Office Visit [facility] - Endocrinology - [place] #2 [place] [address] Kirsten Niño MD #2 [facility] [address] [place] [address] 06/19/2025 10:00 AM CDT Office Visit [facility] - Pulmonology & Sleep Medicine [facility] #2 [place] [place] [address] Michelle Mendes APRN, INSTRUMENT INSPECTOR #2 [facility] [address] [place] [address] documented as of this encounter Visit Diagnoses Diagnosis Bipolar 1 disorder (HCC) Bipolar I disorder, most recent episode (or current) unspecified Anxiety Anxiety state, unspecified documented in this encounter Additional Health Concerns Infection Onset Date Last Indicated Resolved Time COVID - 19 06/01/2023 06/01/2023 06/01/2023 8:16 AM CDT COVID - 19 11/01/2023 11/01/2023 11/11/2023 12:1 6 AM RAIL WALKER COVID - 06/25/2024 06/25/2024 06/25/2024 6:36 PM CDT Assessment Noted Time PHQ-9 Depression Total Score: 0 11/22/19 10:00 AM RAIL WALKER documented as of this encounter Care Teams Audio Engineer Relationship Specialty Start Date End Date Marco Woods MD #2 [facility] [address] [place] [address] PCP - General Family Medicine 11/22/17 Kirsten Niño MD #2 [facility] [address] [place] [address] Consulting Physician Endocrinology 07/17/22 Chin Burrows MD #2 [facility] [address] [place] [address] Consulting Physician General Surgery 11/22/22 Kelsea Root, RN [place] Steam Press Tender 06/15/23 08/26/23 Michelle Mendes APRN, INSTRUMENT INSPECTOR #2 [facility] [address] [place] [address] Nurse Practitioner Advanced Practice Nurse 08/14/22 Chantelle Nix APRN, INSTRUMENT INSPECTOR #2 [place] [address] Nurse Practitioner Advanced Practice Nurse 02/19/24 documented as of this encounter
--- OUTSIDE RECORDS SUMMARY | 2025-03-30 08:26 | XMS_ITS | Encounter Summary ---
Author Organization [facility] Address [address] [place] [address] Phone Care Team Providers Care Opticianry Teacher Name Role Phone Marco Woods MD Primary Care Provider [phone] Kirsten Niño MD Unavailable Chin Burrows MD Unavailable Michelle Mendes APRN, FIG WASHER Unavailable Chantelle Nix APRN, FIG WASHER Unavailable Reason for Visit * Reason Comments Medication Refill Encounter Details Date Type Department Care Team (Late st Contact Info) Description 12/23/2024 Refill [facility] - Gastroenterology - [place] #2 [place] [address] Chantelle Nix APRN, FIG WASHER #2 [place] [address] Medication Refill Social History Tobacco Use Types Packs/Day Years Used Date Smoking Tobacco: Never Smokeless Tobacco: Never Alcohol Use Standard Drinks/Week Comments Not Currently 0 (1 standard drink = 0.6 oz pur e alcohol) [facility] Utilities Answer Date Recorded In [...] declined 06/25/2024 How often do you attend muslim or advent serv ices? Patient declined 06/25/2024 Do you [...] Total Score - Questions 1-9 18 10/24 [facility] of Occupat ional Health - Occupational Stress [...] any time in the past 12 m [facility], were you homeless or living in a assisted (including now)? Patient unable to answer 06/25/2024 Education Answer Date Recorded What is the highest level of school you have completed or the highest degree you have received? 12th grade 04/03/2023 Sexually Active Control Partners Comments Not Currently Comments No Sex and Gender Information Value Date Recorded Sex Assigned at Female 11/22/2023 11:58 AM RAMP BOSS Legal Sex Female 11:34 PM CDT Gender Identity Female 11/22/2023 11:58 AM RAMP BOSS Sexual Orientation Not on file Occupation Industry Job Start Date Job End Date disabled Not on file Not on file Not on file documented as of this encounter Miscellaneous Notes * Telephone Encounter - Denise Honeycutt RN - 12/24/2024 8:23 AM RAMP BOSS Medication refilled and signed per [facility] chronic medication standing order for pediatric and adult patients. BOSS documented in this encounter Plan of Treatment Upcoming Encounters Date Type Department Care Team (Late st Contact Info) Description 04/02/2025 2:30 PM CDT [facility] 2 [place] [address] Marco Woods MD #2 [facility] [address] [place] [address] Discharge Disposition: Discharged to home or Selfcare 04/14/2025 6:30 PM CDT Office Visit [facility] - Family Medicine - [place] #2 [place] [address] Marco Woods MD #2 [facility] [address] [place] [address] 05/11/2025 9:45 AM CDT Office Visit [facility] - Endocrinology - [place] #2 [place] [address] Kirsten Niño MD #2 [facility] [address] [place] [address] 06/19/2025 10:00 AM CDT Office Visit [facility] - Pulmonology & Sleep Medicine - [place] [address] [place] [address] Michelle Mendes APRN, DREW #2 [facility] [address] [place] [address] documented as of this encounter Visit Diagnoses Diagnosis Chronic constipation Unspecified constipation documented in this encounter Additional Health Concerns Assessment Noted Time PHQ-9 Depression Total Score: 18 024 10:00 AM RAMP BOSS documented as of this encounter Care Teams Opticianry Teacher Relationship Specialty Start Date End Date Marco Wodos MD #2 [facility] [address] [place] [address] PCP - General Family Medicine 11/22/17 Kirsten Niño MD #2 [facility] [address] [place] [address] Consulting Physician Endocrinology 07/17/22 Chin Burrows MD #2 [facility] [address] [place] [phone] Consulting Physician General Surgery 11/22/22 Michelle Mendes APRN, FIG WASHER #2 [facility] [address] [place] [address] Nurse Practitioner Advanced Practice Nurse 08/14/22 Chantelle Nix APRN, FIG WASHER #[address] [place] [address] Nurse Practitioner Advanced Practice Nurse 02/19/24 documented as of this encounter
--- OUTSIDE RECORDS SUMMARY | 2025-03-30 08:26 | XMS_ITS | Encounter Summary ---
Author Organization [facility] Address [address] [place] [address] Phone Care Team Providers Care Service Advocate Contact Name Role Phone Marco Woods MD Primary Care Provider Kirsten Niño MD Unavailable Chin Burrows MD Unavailable [phone] Kelsea Root RN Unavailable Unavailable Michelle Mendes APRN, PHARMACY TECHNICIAN INPATIENT Unavailable Chantelle Nix APRN, PHARMACY TECHNICIAN INPATIENT Unavailable Reason for Visit * Reason Comments Medication Refill Encounter Details Date Type Department Care Team (Late st Contact Info) Description 09/22/2022 Refill [facility] - Family Medicine [facility] #2 [place] [phone] Marco Woods MD [id number] [address] Medication Refill Social History Tobacco Use Types Packs/Day Years Used Date Smoking Tobacco: Never Smokeless Tobacco: Former Alcohol Use Standard Drinks/Week Comments Not Currently 0 (1 standard drink = 0.6 oz pur e alcohol) Sexually Active Control Partners Comments Not Currently Comments No Sex and Gender Information Value Date Recorded Sex Assigned at Female 11/22/2023 11:58 AM BUSINESS SUPPORT SPECIALIST Legal Sex Female 11:34 PM CDT Gender Identity Female 11/22/2023 11:58 AM BUSINESS SUPPORT SPECIALIST Sexual Orientation Not on file Occupation Industry Job Start Date Job End Date disabled Not on file Not on file Not on file COVID-19 Exposure Response Date Recorded In the last 10 days, have ambar u been in contact with someone who was confirmed or suspected to have Coronavirus/COVID-19? No / Unsure 09/16/2022 6:11 AM BUSINESS SUPPORT SPECIALIST documented as of this encounter Miscellaneous Notes [...] Dept 08/29/22 Office Visit Ronald Shaffer APRN, PHARMACY TECHNICIAN INPATIENT [facility] [place] 07/12/22 Office Visit [facility] Hernandez, [facility] 06/23/22 Office Visit Marco Woods MD [facility] 05/19/22 Office Visit Marco Woods MD [facility] 01/10/22 Office Visit Marco Woods MD [facility] 10/04/21 Office Visit [facility] MD [facility] [place] Showing recent visits within past 365 [...] Dept 08/29/22 Office Visit Ronald Shaffer APRN, PHARMACY TECHNICIAN INPATIENT [facility] 07/12/22 Office Visit Mary Jany Whittaker, [facility] 06/23/22 Office Visit [facility] 05/19/22 [facility] [place] 01/10/22 Office Visit Marco Woods MD [facility] Showing recent visits within past 270 days and meeting all other requirements Future Appointments Date Type Provider Dept 10/25/22 Appointment [facility] Show[facility] future appointments within next 90 days and meeting all other requirements Passed - Blood pressure on record in past 12 months Clinician-entered: BP Readings from Last 3 Encounters: 09/12/22 140/84 08/29/22 134/70 08/28/22 118/78 Patient-entered: No data recorded NESS SUPPORT SPECIALIST documented in this encounter Plan of Treatment Upcoming Encounters Date Type Department Care Team (Late st Contact Info) Description 04/02/2025 2:30 PM CDT EMG [facility] 2 [place] [address] Marco Woods MD #[address] [address] Discharge Disposition: Discharged to home or Selfcare 04/14/2025 6:30 PM CDT Office Visit [facility] - Family Medicine - [place] #2 [place] [address] Marco Woods MD #[address] [place] [address] 05/11/2025 9:45 AM CDT Office Visit [facility] - Endocrinology - [place] #2 [facility] [place] [address] Kirsten Niño MD #[address] [place] [address] 06/19/2025 10:00 AM CDT Office Visit [facility] - Pulmonology & Sleep Medicine [facility] #2 [facility] [place] [address] Michelle Mendes APRN, PHARMACY TECHNICIAN INPATIENT #2 [facility] [address] [place] [address] documented as of this encounter Visit Diagnoses Diagnosis Organic periodic limb movement sleep disorder documented in this encounter Additional Health Concerns Infection Onset Date Last Indicated Resolved Time COVID - 19 11/20/2022 11/20/2022 11/24/2022 8:51 AM BUSINESS SUPPORT SPECIALIST COVID - 19 12/31/2022 12/31/2022 01/10/2023 12:1 8 AM CDT COVID - 19 Confirmed 12/31/2022 12/31/2022 023 12:17 AM CDT COVID - 19 06/01/2023 06/01/2023 06/01/2023 8:16 AM CDT COVID - 19 11/01/2023 11/01/2023 11/11/2023 12:1 6 AM BUSINESS SUPPORT SPECIALIST COVID - 19 06/25/2024 06/25/2024 06/25/2024 6:36 PM CDT Assessment Noted Time PHQ-9 Depression Total Score: 0 11/22/19 18 10:00 AM BUSINESS SUPPORT SPECIALIST documented as of this encounter Care Teams Service Advocate Contact Relationship Specialty Start Date End Date Marco Woods MD #2 [facility] [address] [place] [address] PCP - General Family Medicine 11/22/17 Kirsten Niño MD #2 [facility] [address] [place] [address] Consulting Physician Endocrinology 07/17/22 Chin Burrows MD #2 [facility] [address] [place] [address] Consulting Physician General Surgery 11/22/22 Kelsea Root, RN [place] Auto Transmission Technician 06/15/23 08/26/23 Michelle Mendes APRN, PHARMACY TECHNICIAN INPATIENT #2 [facility] [address] [place] [address] Nurse Practitioner Advanced Practice Nurse 08/14/22 Chantelle Nix APRN, PHARMACY TECHNICIAN INPATIENT #2 [place] [address] Nurse Practitioner Advanced Practice Nurse 02/19/24 documented as of this encounter
--- OUTSIDE RECORDS SUMMARY | 2025-03-30 08:26 | XMS_ITS | Encounter Summary ---
Author Organization [facility] Address [address] [place] [address] Phone Care Team Providers Care Electric Sign Wirer Name Role Phone Marco Woods MD Primary Care Provider [phone] Kirsten Niño MD Unavailable Chin Burrows MD Unavailable Kelsea Root RN Unavailable Unavailable Michelle Mendes APRN, RECORDS AND INFORMATION MANAGER Unavailable [phone] Chantelle Nix APRN, RECORDS AND INFORMATION MANAGER Unavailable Reason for Visit * Reason Comments Medication Refill Encounter Details Date Type Department Care Team (Late st Contact Info) Description 05/27/2023 Refill [facility] - Family Medicine - [place] #2 [place] [address] Marco Woods MD [id number] [address] Medication Refill Social History Tobacco Use Types [...] Sex Assigned at Female 11/22/2023 11:58 AM MOTORCYCLE SERVICE TECHNICIAN Legal Sex Female 11:34 PM CDT Gender Identity Female 11/22/2023 11:58 AM MOTORCYCLE SERVICE TECHNICIAN Sexual Orientation Not on file Occupation [...] [place] 08/29/22 Office Visit Ronald Shaffer APRN, RECORDS AND INFORMATION MANAGER [facility] [place] Showing recent visits within past 365 days and meeting all other requirements Future Appointments Date Type Provider Dept 08/02/23 Appointment Marco Woods MD [facility] [place] 08/07/23 Appointment Marco Woods MD [facility] Showing future appointments within next 90 days and meeting all other requirements documented in this encounter Plan of Treatment Upcoming Encounters Date Type Department Care Team (Late st Contact Info) Description 04/02/2025 2:30 PM CDT EMG [facility] Neurosciences Clinic 2 [place] [address] Marco Woods MD #2 [facility] [address] [place] [address] Discharge Disposition: Discharged to home or Selfcare 04/14/2025 6:30 PM CDT Office Visit [facility] Medical [facility] - Family Medicine - [place] #2 [place] [address] Marco Woods MD #2 [facility] [address] [place] [address] 05/11/2025 9:45 AM CDT Office Visit [facility] - Endocrinology - [place] #2 [place] [address] Kirsten Niño MD #2 [facility] [address] [place] [address] 06/19/2025 10:00 AM CDT Office Visit [facility] - Pulmonology & Sleep Medicine - [place] #2 [place] [address] Michelle Mendes APRN, DREW #2 [facility] [address] [place] [address] documented as of this encounter Visit Diagnoses Diagnosis Primary insomnia Persistent disorder of initiating or maintaining sleep documented in this encounter Additional Health Concerns Infection Onset Date Last Indicated Resolved Time COVID - 06/01/2023 06/01/2023 06/01/2023 8:16 AM CDT COVID - 11/01/2023 11/01/2023 11/11/2023 12:1 6 AM MOTORCYCLE SERVICE TECHNICIAN COVID - 06/25/2024 06/25/2024 06/25/2024 6:36 PM CDT Assessment Noted Time PHQ-9 Depression Total Score: 0 11/22/19 10:00 AM MOTORCYCLE SERVICE TECHNICIAN documented as of this encounter Care Teams Electric Sign Wirer Relationship Specialty Start Date End Date Marco Woods MD #2 [facility] [address] [place] [address] PCP - General Family Medicine 11/22/17 Kirsten Niño MD #2 [facility] [address] [place] [address] Consulting Physician Endocrinology 07/17/22 Chin Burrows MD #2 [facility] [address] [place] [address] Consulting Physician General Surgery 11/22/22 Kelsea Root RN [place] Publications Inspector 06/15/23 08/26/23 Michelle Mendes APRN, RECORDS AND INFORMATION MANAGER #2 [facility] [address] [place] [address] Nurse Practitioner Advanced Practice Nurse 08/14/22 Chantelle Nix APRN, RECORDS AND INFORMATION MANAGER #2 [place] [address] Nurse Practitioner Advanced Practice Nurse 02/19/24 documented as of this encounter
--- OUTSIDE RECORDS SUMMARY | 2025-03-30 08:26 | XMS_ITS | Encounter Summary ---
Author Organization [facility] Address [address] [place] [address] Phone Care Team Providers Care Overlock Sewing Machine Operator Name Role Phone Marco Woods MD Primary Care Provider [phone] Kirsten Niño MD Unavailable Chin Burrows MD Unavailable [phone] Kelsea Root RN Unavailable Unavailable Michelle Mendes APRN, RACECOURSE BARRIER ATTENDANT Unavailable [phone] Chantelle Nix APRN, RACECOURSE BARRIER ATTENDANT Unavailable Reason for Visit * Reason Comments Medication Refill Encounter Details Date Type Department Care Team (Late st Contact Info) Description 05/27/2023 Refill [facility] Medical Group - Family Medicine - [place] #2 [place] [address] Mirtha Steiner APRN, RACECOURSE BARRIER ATTENDANT #2 [facility] [address] Medication Refill Social History Tobacco [...] Assigned at Female 11/22/2023 11:58 AM FIELD ADMINISTRATIVE ASSISTANT Legal Sex Female 11:34 PM CDT Gender Identity Female 11/22/2023 11:58 AM FIELD ADMINISTRATIVE ASSISTANT Sexual Orientation Not on file Occupation [...] 03/05/23 Office Visit Mirtha Steiner APRN, [facility] [place] 02/07/23 Office Visit Marco Woods MD [facility] [place] 01/23/23 Office Visit Rebecca Liu APRN, DREW [facility] [place] 12/05/22 Office Visit Marco Woods MD [facility] [place] 10/25/22 Office Visit Marco Woods MD [facility] [place] 08/29/22 [facility] Show[facility] recent visits within past 365 days and meeting all other requirements Future Appointments Date Type Provider Dept 08/02/23 Appointment [facility] [place] 08/07/23 Appointment Marco Woods MD [facility] [place] Showing future appointments within next 90 days and meeting all other requirements documented in this encounter Plan of Treatment Upcoming Encounters Date Type Department Care Team (Late st Contact Info) Description 04/02/2025 2:30 PM CDT EMG [facility] 2 [place] [address] Marco Woods MD #2 [facility] [address] [place] [address] Discharge Disposition: Discharged to home or Selfcare 04/14/2025 6:30 PM CDT Office Visit [facility] Medical [facility] - Family Medicine - [place] #2 [place] [address] Marco Woods MD #2 [facility] [address] [place] [address] 05/11/2025 9:45 AM CDT Office Visit [facility] - Endocrinology - [place] #2 [place] [address] Kirsten Niño MD #2 [facility] [address] [place] [address] 06/19/2025 10:00 AM CDT Office Visit [facility] - Pulmonology & Sleep Medicine - [place] #2 [facility] [place] [address] Michelle Mendes APRN, RACECOURSE BARRIER ATTENDANT #2 [facility] [address] [place] [address] documented as of this encounter Visit Diagnoses Diagnosis Anxiety Anxiety state, unspecified documented in this encounter Additional Health Concerns Infection Onset Date Last Indicated Resolved Time COVID - 06/01/2023 06/01/2023 06/01/2023 8:16 AM CDT COVID - 19 11/01/2023 11/01/2023 11/11/2023 12:1 6 AM FIELD ADMINISTRATIVE ASSISTANT COVID - 06/25/2024 06/25/2024 06/25/2024 6:36 PM CDT Assessment Noted Time PHQ-9 Depression Total Score: 0 11/22/19 10:00 AM FIELD ADMINISTRATIVE ASSISTANT documented as of this encounter Care Teams Overlock Sewing Machine Operator Relationship Specialty Start Date End Date Marco Woods MD #2 [facility] [address] [place] [address] PCP - General Family Medicine 11/22/17 Kirsten Niño MD #2 [facility] [address] [place] [address] Consulting Physician Endocrinology 07/17/22 Chin Burrows MD #2 [facility] [address] [place] [address] Consulting Physician General Surgery 11/22/22 Kelsea Root RN [place] Vapor Coater 06/15/23 08/26/23 Michelle Mendes APRN, RACECOURSE BARRIER ATTENDANT #2 [facility] [address] [place] [address] Nurse Practitioner Advanced Practice Nurse 08/14/22 Chantelle Nix APRN, RACECOURSE BARRIER ATTENDANT #2 [place] [address] Nurse Practitioner Advanced Practice Nurse 02/19/24 documented as of this encounter
--- OUTSIDE RECORDS SUMMARY | 2025-03-30 08:26 | XMS_ITS | Encounter Summary ---
Author Organization [facility] Address [address] [place] [address] Phone Care Team Providers Care Warehouse Helper Name Role Phone Marco Woods MD Primary Care Provider Kirsten Niño MD Unavailable Chin Burrows MD Unavailable Michelle Mendes APRN, SUPERVISOR PAINTING DEPARTMENT Unavailable Chantelle Nix APRN, SUPERVISOR PAINTING DEPARTMENT Unavailable Encounter Details Date Type Department Care Team (Late st Contact Info) Description 02/03/2025 Results Follow-Up [facility] Medical Group - Endocrinology - [place] #[address] [place] [address] Kirsten Niño MD #[address] [address] THYROID STIMULATING HORMONE (TSH), THYROXINE (T4) FREE Social History Tobacco Use Types Packs/Day Years Used Date Smoking Tobacco: Never Smokeless Tobacco: Never Alcohol Use Standard Drinks/Week Comments Not Currently 0 (1 standard drink = 0.6 oz pur e alcohol) [facility] Utilities Answer Date Recorded In [...] declined 06/25/2024 How often do you attend bahai or presybeterian serv ices? Patient declined 06/25/2024 Do you belong to any clubs o r organizations such as bahai groups, unions, fraternal or athletic groups, or [...] Total Score - Questions 1-9 18 10/24 [facility] of Occupat ional Health - Occupational [...] at Female 11/22/2023 11:58 AM WARM IN Legal Sex Female 11:34 PM CDT Gender Identity Female 11/22/2023 11:58 AM WARM IN Sexual Orientation Not on file Occupation Industry Job Start Date Job End Date disabled Not on file Not on file Not on file documented as of this encounter Plan of Treatment Upcoming Encounters Date Type Department Care Team (Late st Contact Info) Description 04/02/2025 2:30 PM CDT EMG [facility] 2 [place] [address] Marco Woods MD #2 [facility] [address] [place] [address] Discharge Disposition: Discharged to home or Selfcare 04/14/2025 6:30 PM CDT Office Visit [facility] Medical [facility] Family Medicine - [place] #2 [place] [address] Marco Woods MD #2 [facility] [address] [place] [address] 05/11/2025 9:45 AM CDT Office Visit [facility] Endocrinology - [place] #2 [facility] [address] Kirsten Niño MD #[address] [place] [address] 06/19/2025 10:00 AM CDT Office Visit [facility] - Pulmonology & [facility] Medicine [facility] #2 [place] [address] Michelle Mendes APRN, SUPERVISOR PAINTING DEPARTMENT #2 [facility] [address] [place] [address] documented as of this encounter Visit Diagnoses Not on filedocumented in this encounter Additional Health Concerns Assessment Noted Time PHQ-9 Depression Total Score: 18 024 10:00 AM WARM IN documented as of this encounter Care Teams Warehouse Helper Relationship Specialty Start Date End Date Marco Woods MD #2 [facility] [address] [place] [address] PCP - General Family Medicine 11/22/17 Kirsten Niño MD #[address] [place] [address] Consulting Physician Endocrinology 07/17/22 Chin Burrows MD #2 [facility] [address] [place] [address] Consulting Physician General Surgery 11/22/22 Michelle Mendes APRN, SUPERVISOR PAINTING DEPARTMENT #[facility] [address] Nurse Practitioner Advanced Practice Nurse 08/14/22 Chantelle Nix APRN, SUPERVISOR PAINTING DEPARTMENT #2 [place] [address] Nurse Practitioner Advanced Practice Nurse 02/19/24 documented as of this encounter
--- OUTSIDE RECORDS SUMMARY | 2025-03-30 08:26 | XMS_ITS | Encounter Summary ---
Author Organization [facility] Address [address] [place] [address] Phone Care Team Providers Care Safety Person Name Role Phone Marco Woods MD Primary Care Provider [phone] Kirsten Niño MD Unavailable Chin Burrows MD Unavailable Kelsea Root RN Unavailable Unavailable Michelle Mendes APRN, BUFFET WAITER/WAITRESS Unavailable Chantelle Nix APRN, BUFFET WAITER/WAITRESS Unavailable Reason for Visit * Reason Comments Medication Refill Encounter Details Date Type Department Care Team (Late st Contact Info) Description 07/16/2023 Refill [facility] - [facility] Medicine - [place] #2 [place] [phone] Marco Woods MD #[address] [address] Medication Refill Social History Tobacco Use Types [...] Sex Assigned at Female 11/22/2023 11:58 AM DRYWALL HANGER Legal Sex Female 11:34 PM CDT Gender Identity Female 11/22/2023 11:58 AM DRYWALL HANGER Sexual Orientation Not on file Occupation Industry [...] Info) Description 04/02/2025 2:30 PM CDT [facility] 2 [place] [address] Marco Woods MD #[address] [address] Discharge Disposition: Discharged to home or Selfcare 04/14/2025 6:30 PM CDT Office Visit [facility] - Family Medicine [facility] #2 [place] [address] Marco Woods MD #[address] [address] 05/11/2025 9:45 AM CDT [facility] - Endocrinology - [place] #2 [place] [address] Kirsten Niño MD #2 [facility] [address] [place] [address] 06/19/2025 10:00 AM CDT [facility] #2 [place] [address] Michelle Mendes APRN, BUFFET WAITER/WAITRESS #2 [facility] [address] [place] [address] documented as of this encounter Visit Diagnoses Not on filedocumented in this encounter Additional Health Concerns Infection Onset Date Last Indicated Resolved Time COVID - 19 11/01/2023 11/01/2023 11/11/2023 12:1 6 AM DRYWALL HANGER COVID - 06/25/2024 06/25/2024 06/25/2024 6:36 PM CDT Assessment Noted Time PHQ-9 Depression Total Score: 0 11/22/19 10:00 AM DRYWALL HANGER documented as of this encounter Care Teams Safety Person Relationship Specialty Start Date End Date Marco Woods MD #[address] [address] PCP - General Family Medicine 11/22/17 Kirsten Niño MD #[address] [address] Consulting Physician Endocrinology 07/17/22 Chin Burrows MD #[address] [address] Consulting Physician General Surgery 11/22/22 Kelsea Root RN [place] [employer] 06/15/23 08/26/23 Michelle Mendes APRN, BUFFET WAITER/WAITRESS #[address] [address] Nurse Practitioner Advanced Practice Nurse 08/14/22 Chantelle Nix APRN, BUFFET WAITER/WAITRESS #2 [place] [address] Nurse Practitioner Advanced Practice Nurse 02/19/24 documented as of this encounter
--- OUTSIDE RECORDS SUMMARY | 2025-03-30 08:26 | XMS_ITS | Encounter Summary ---
Author Organization [facility] Address [address] [place] [address] Phone Care Team Providers Care Explosives Mixer Operator Name Role Phone Marco Woods MD Primary Care Provider Kirsten Niño MD Unavailable Chin Burrows MD Unavailable Kelsea Root RN Unavailable Unavailable Michelle Mendes APRN, BAG GRADER Unavailable Chantelle Nix APRN, BAG GRADER Unavailable Reason for Visit * Reason Onset Date Comments Medication Management 07/24/2022 Encounter Details Date Type Department Care Team (Late st Contact Info) Description 07/24/2022 Nurse Triage [facility] [address] [place] [address] Marco Woods MD #2 [facility] [place] [address] Medication Management Social History Tobacco Use Types Packs/Day Years Used Date Smoking Tobacco: Never Smokeless Tobacco: Former Alcohol Use Standard Drinks/Week Comments Not Currently 0 (1 standard drink = 0.6 oz pur e alcohol) Sexually Active Control Partners Comments Not Currently Comments No Sex and Gender Information Value Date Recorded Sex Assigned at Female 11/22/2023 11:58 AM DIRECTOR CHILD DEVELOPMENT CENTER Legal Sex Female 11:34 PM CDT Gender Identity Female 11/22/2023 11:58 AM DIRECTOR CHILD DEVELOPMENT CENTER Sexual Orientation Not on file Occupation Industry [...] Description 04/02/2025 2:30 PM CDT [facility] 2 [place] [address] Marco Woods MD #2 [facility] [address] [place] [address] Discharge Disposition: Discharged to home or Selfcare 04/14/2025 6:30 PM CDT Office Visit [facility] - Family Medicine - [place] #2 [place] [address] Marco Woods MD #2 [facility] [address] [place] [address] 05/11/2025 9:45 AM CDT Office Visit [facility] - Endocrinology - [place] #2 [place] [address] Kirsten Niño MD #2 [facility] [address] [place] [address] 06/19/2025 10:00 AM CDT Office Visit [facility] - Pulmonology & Sleep Medicine - [place] #2 [place] [phone] Michelle Mendes, KIESELGUHR REGENERATOR OPERATOR, BAG GRADER #2 [facility] [address] [place] [address] documented as of this encounter Visit Diagnoses Not on filedocumented in this encounter Additional Health Concerns Infection Onset Date Last Indicated Resolved Time COVID - 19 11/20/2022 11/20/2022 11/24/2022 8:51 AM DIRECTOR CHILD DEVELOPMENT CENTER COVID - 19 12/31/2022 12/31/2022 01/10/2023 12:1 8 AM CDT COVID - 19 Confirmed 12/31/2022 12/31/2022 023 12:17 AM CDT COVID - 19 06/01/2023 06/01/2023 06/01/2023 8:16 AM CDT COVID - 19 11/01/2023 11/01/2023 11/11/2023 12:1 6 AM DIRECTOR CHILD DEVELOPMENT CENTER COVID - 19 06/25/2024 06/25/2024 06/25/2024 6:36 PM CDT Assessment Noted Time PHQ-9 Depression Total Score: 0 11/22/19 10:00 AM DIRECTOR CHILD DEVELOPMENT CENTER documented as of this encounter Care Teams Explosives Mixer Operator Relationship Specialty Start Date End Date Marco Woods MD #2 [facility] [address] [place] [address] PCP - General Family Medicine 11/22/17 Kirsten Niño MD #2 [facility] [address] [place] [address] Consulting Physician Endocrinology 07/17/22 Chin Burrows MD #2 [facility] [address] [place] [address] Consulting Physician General Surgery 11/22/22 Kelsea Root, RN [place] Business Services Analyst 06/15/23 08/26/23 Michelle Mendes, KIESELGUHR REGENERATOR OPERATOR, BAG GRADER #2 [facility] [address] [place] [address] Nurse Practitioner Advanced Practice Nurse 08/14/22 Chantelle Nix APRN, BAG GRADER #2 [place] [address] Nurse Practitioner Advanced Practice Nurse 02/19/24 documented as of this encounter
== END 2025-03-30 08:13 | disposition home or self-care (01) ==
LOC: ANHIMG 08:13
PROVIDERS: PCP Internal Medicine; Visit Provider Nurse Practitioner Family
DX: K30 Functional dyspepsia (principal)
CPT/HCPCS: 78264; A9541

== ENCOUNTER 2025-05-19 10:11 | Outpatient (CLI) | payer MEDICARE, MEDICAID, SELFPAY ==
--- OUTSIDE RECORDS SUMMARY | 2025-05-19 10:25 | XMS_ITS | Encounter Summary ---
Author Organization [facility] Address [address] [place] [address] Phone Care Team Providers Care Emergency Spill Response Technician Name Role Phone Marco Woods MD Primary Care Provider Kirsten Niño MD Unavailable Chin Burrows MD Unavailable Michelle Mendes APRN, COMMERCIAL ANALYST Unavailable Chantelle Nix APRN, COMMERCIAL ANALYST Unavailable Analia Meza MD Unavailable [phone] Reason for Visit * Reason Comments Medication Refill Encounter Details Date Type Department Care Team (Late st Contact Info) Description 09/25[facility] [address] [place] [address] Kirsten Niño MD #[address] [address] Medication Refill Social History Tobacco [...] Sex Assigned at Female 11/22/2023 11:58 AM SUPERVISOR CLOTH WINDING Legal Sex Female 11:34 PM CDT Gender Identity Female 11/22/2023 11:58 AM SUPERVISOR CLOTH WINDING Sexual Orientation Not on file Occupation Industry Job Start Date Job End Date disabled Not on file Not on file Not on file documented as of this encounter Miscellaneous Notes * Telephone Encounter - Denise Doe RN - 09/26/2023 8:46 AM SUPERVISOR CLOTH WINDING Requested Prescriptions Pending Prescriptions Disp Refills ??? Prolia 60 MG/ML Solution Prefilled Syringe [Pharmacy Med Name: PROLIA 60MG/ML CHARLEEN FOR INJ, 1ML]1 mL 0 Sig: INJECT 1ML SUBCUTANEOUS EVERY 6 MONTHS Next appt: 09/27/2024 RVISOR CLOTH WINDING documented in this encounter Plan of Treatment Upcoming Encounters Date Type Department Care Team (Late st Contact Info) Description 06/12/2025 11:00 AM CDT [facility] #2 [place] [address] Marco Woods MD #[address] [address] 07/01/2025 11:00 AM CDT Office Visit [facility] - Ear, Nose & Throat - [place] #2 [place] [address] Analia Meza MD #[address] [address] 07/03/2025 5:30 PM CDT [facility] [address] [place] [address] Analia Meza MD #[address] [phone] Discharge Disposition: Discharged to home or Selfcare 07/17/2025 10:30 AM CDT Office Visit [facility] - Pulmonology & Sleep Medicine [facility] #2 [place] [address] Michelle Mendes APRN, COMMERCIAL ANALYST #2 [facility] [address] [place] [address] 08/11/2025 9:45 AM CDT Office Visit [facility] Medical [facility] - Endocrinology - [place] #2 [place] [address] Kirsten Niño MD #[address] [address] documented as of this encounter Visit Diagnoses Not on filedocumented in this encounter Additional Health Concerns Infection Onset Date Last Indicated Resolved Time COVID - 19 11/01/2023 11/01/2023 11/11/2023 12:1 6 AM SUPERVISOR CLOTH WINDING COVID - 19 06/25/2024 06/25/2024 06/25/2024 6:36 PM CDT Assessment Noted Time PHQ-9 Depression Total Score: 0 11/22/19 10:00 AM SUPERVISOR CLOTH WINDING documented as of this encounter Care Teams Emergency Spill Response Technician Relationship Specialty Start Date End Date Marco Woods MD #2 [facility] [address] [place] [address] PCP - General Family Medicine 11/22/17 Kirsten Niño MD #[address] [phone] Consulting Physician Endocrinology 07/17/22 Chin Burrows MD #[address] [address] Consulting Physician General Surgery 11/22/22 Michelle Mendes APRN, COMMERCIAL ANALYST #2 [facility] [address] [place] [address] Nurse Practitioner Advanced Practice Nurse 08/14/22 Chantelle Nix APRN, COMMERCIAL ANALYST #2 [place] [address] Nurse Practitioner Advanced Practice Nurse 02/19/24 Analia Meza MD #[address] [address] Consulting Physician Otolaryngology 05/11/25 documented as of this encounter
--- OUTSIDE RECORDS SUMMARY | 2025-05-19 10:25 | XMS_ITS | Encounter Summary ---
Author Organization [facility] Address [address] [place] [address] Phone Care Team Providers Care Sound Person Name Role Phone Marco Woods MD Primary Care Provider Kirsten Niño MD Unavailable Chin Burrows MD Unavailable Kelsea Root RN Unavailable Unavailable Michelle Mendes APRN, OPERATIONS ANALYST Unavailable Chantelle Nix APRN, OPERATIONS ANALYST Unavailable Analia Meza MD Unavailable [phone] Reason for Visit * Reason Comments Medication Refill Encounter Details Date Type Department Care Team (Late st Contact Info) Description 08/06/2021 Refill [facility] [address] [place] [address] Marco Woods MD #2 [facility] [place], [place] [id number] Medication Refill Social History Tobacco Use Types Packs/Day Years Used Date Smoking Tobacco: Never Smokeless Tobacco: Former Alcohol Use Standard Drinks/Week Comments Not Currently 0 (1 standard drink = 0.6 oz pur e alcohol) Sexually Active Control Partners Comments Not Currently Comments No Sex and Gender Information Value Date Recorded Sex Assigned at Female 11/22/2023 11:58 AM SHEET LAYER Legal Sex Female 11:34 PM CDT Gender Identity Female 11/22/2023 11:58 AM SHEET LAYER Sexual Orientation Not on file Occupation Industry [...] Dept 06/29/21 Office Visit Marco Woods MD [facility] 03/25/21 Office Visit Marco Woods MD [facility] 02/22/21 Office Visit Marco Woods MD [facility] 02/07/21 Office Visit Marco Woods MD [facility] 12/21/20 Telemedicine Mirtha Steiner APN, OPERATIONS ANALYST [facility] [place] 11/09/20 Office Visit Marco Woods MD [facility] 09/06/20 Office Visit Marco Woods MD [facility] [place] Showing recent visits within past 365 days and meeting all other requirements Future Appointments Date Type Provider Dept 09/28/21 Appointment Marco Woods MD [facility] Showing future appointments within next 90 days and meeting all other requirements documented in this encounter Plan of Treatment Upcoming Encounters Date Type Department Care Team (Late st Contact Info) Description 06/12/2025 11:00 AM CDT Office Visit [facility] - Family Medicine - [place] #2 [place] [address] Marco Woods MD #2 [facility] [address] [place] [address] 07/01/2025 11:00 AM CDT Office Visit [facility] Medical [facility] - Ear, Nose & Throat - [place] #2 [place] [address] Analia Meza MD #2 [facility] [address] [place] [address] 07/03/2025 5:30 PM CDT [facility] [place] [address] Analia Meza MD #2 [facility] [address] [place] [address] Discharge Disposition: Discharged to home or Selfcare 07/17/2025 10:30 AM CDT [facility] - Pulmonology & Sleep Medicine - [place] #2 [place] [address] Michelle Mendes APRN, OPERATIONS ANALYST #2 [facility] [address] [place] [address] 08/11/2025 9:45 AM CDT Office Visit [facility] - Endocrinology - [place] #2 [facility] [place] [address] Kirsten Niño MD #2 [facility] [address] [place] [address] documented as of this encounter Visit Diagnoses Not on filedocumented in this encounter Additional Health Concerns Infection Onset Date Last Indicated Resolved Time COVID - 19 06/29/2022 06/29/2022 07/09/2022 12:1 6 AM CDT COVID - 19 11/20/2022 11/20/2022 11/24/2022 8:51 AM SHEET LAYER COVID - 19 12/31/2022 12/31/2022 01/10/2023 12:1 8 AM CDT COVID - 19 Confirmed 12/31/2022 12/31/2022 023 12:17 AM CDT COVID - 19 06/01/2023 06/01/2023 06/01/2023 8:16 AM CDT COVID - 19 11/01/2023 11/01/2023 11/11/2023 12:1 6 AM SHEET LAYER COVID - 19 06/25/2024 06/25/2024 06/25/2024 6:36 PM CDT Assessment Noted Time PHQ-9 Depression Total Score: 0 11/22/19 18 10:00 AM SHEET LAYER documented as of this encounter Care Teams Sound Person Relationship Specialty Start Date End Date Marco Woods MD #2 [facility] [address] [place] [address] PCP - General Family Medicine 11/22/17 Kirsten Niño MD #[address] [address] [address] Consulting Physician Endocrinology 07/17/22 Chin Burrows MD #[address] [address] Consulting Physician General Surgery 11/22/22 Kelsea Root RN [place] Hospital Nursing Assistant 06/15/23 08/26/23 Michelle Mendes APRN, OPERATIONS ANALYST #2 [facility] [address] [place] [address] Nurse Practitioner Advanced Practice Nurse 08/14/22 Chantelle Nix APRN, OPERATIONS ANALYST #2 [place] [address] Nurse Practitioner Advanced Practice Nurse 02/19/24 Analia Meza MD #2 [facility] [address] [place] [address] Consulting Physician Otolaryngology 05/11/25 documented as of this encounter
--- OUTSIDE RECORDS SUMMARY | 2025-05-19 10:25 | XMS_ITS | Encounter Summary ---
Author Organization [facility] Address [address] [place] [address] Phone Care Team Providers Care Sole Splitter Name Role Phone Marco Woods MD Primary Care Provider Kirsten Niño MD Unavailable Chin Burrows MD Unavailable Michelle Mendes APRN, TRAFFIC SUPERINTENDENT Unavailable [phone] Chantelle Nix APRN, TRAFFIC SUPERINTENDENT Unavailable Analia Meza MD Unavailable [phone] Reason for Visit * Reason Comments Medication Refill Encounter Details Date Type Department Care Team (Late st Contact Info) Description 01/01/2024 Refill [facility] - Family Medicine - [place] #[address] [place] [address] Marco Woods MD #[address] [address] Medication Refill Social History Tobacco Use Types Packs/Day Years Used Date Smoking Tobacco: Never Smokeless Tobacco: Never Alcohol Use Standard Drinks/Week Comments Not Currently 0 (1 standard drink = 0.6 oz pur e alcohol) [facility] Utilities Answer Date Recorded In the past 12 months has [employer] electric, gas, oil, or water company threatened [...] How often do you attend restorationist or amish serv ices? Patient declined 11/28/2023 Do you [...] Total Score - Questions 1-9 18 10/24 [facility] - Occupational Stress Questionnaire Answer Date Recorded [...] Assigned at Female 11/22/2023 11:58 AM CERTIFIED PERSONAL CHEF Legal Sex Female 11:34 PM CDT Gender Identity Female 11/22/2023 11:58 AM CERTIFIED PERSONAL CHEF Sexual Orientation Not on file Occupation Industry Job Start Date Job End Date disabled Not on file Not on file Not on file documented as of this encounter Miscellaneous Notes * Telephone Encounter - Amada Orozco RN - 01/01/2024 2:40 PM CDT gned Yesterday (12/31/2023): Kiwjlnplatt-Veziakhhc-Rpxilo (Trelegy Ellipta) 100-62.5-25 MCG/ACT AEROSOL POWDER, BREATH ACTIVATED Sig: take 1 Puff by inhalation daily. Disp: 60 Each Refills: 3 Signed by: Michelle Mendes APRN TRAFFIC SUPERINTENDENT documented in this encounter Plan of Treatment Upcoming Encounters Date Type Department Care Team (Late st Contact Info) Description 06/12/2025 11:00 AM CDT [facility] - Family Medicine - [place] #2 [place] [address] Marco Woods MD #[address] [facility] [address] [place] [address] 07/01/2025 11:00 AM CDT Office Visit [facility] - Ear, Nose & Throat - [place] #2 [facility] [place] [address] Analia Meza MD #[address] [phone] 07/03/2025 5:30 PM CDT [facility] [address] [place] [address] Analia Meza MD #[address] [phone] Discharge Disposition: Discharged to home or Selfcare 07/17/2025 10:30 AM CDT [facility] - [place] #2 [place] [address] Michelle Mendes APRN, TRAFFIC SUPERINTENDENT #[address] [facility] [address] [place] [address] 08/11/2025 9:45 AM CDT Office Visit [facility] - Endocrinology - [place] #2 [place] [address] Kirsten Niño MD #[address] [phone] documented as of this encounter Visit Diagnoses Not on filedocumented in this encounter Additional Health Concerns Infection Onset Date Last Indicated Resolved Time COVID - 19 06/25/2024 06/25/2024 06/25/2024 6:36 PM CDT Assessment Noted Time PHQ-9 Depression Total Score: 18 024 10:00 AM CERTIFIED PERSONAL CHEF documented as of this encounter Care Teams Sole Splitter Relationship Specialty Start Date End Date Marco Woods MD #2 [facility] [address] [place] [address] PCP - General Family Medicine 11/22/17 Kirsten Niño MD #[address] [facility] [address] [place] [address] Consulting Physician Endocrinology 07/17/22 Chin Burrows MD #[address] [facility] [address] [place] [address] Consulting Physician General Surgery 11/22/22 Michelle Mendes APRN, TRAFFIC SUPERINTENDENT #2 [facility] [address] [place] [address] Nurse Practitioner Advanced Practice Nurse 08/14/22 Chantelle Nix APRN, TRAFFIC SUPERINTENDENT #2 [place] [address] Nurse Practitioner Advanced Practice Nurse 02/19/24 Analia Meza MD #2 [facility] [address] [place] [address] Consulting Physician Otolaryngology 05/11/25 documented as of this encounter
--- OUTSIDE RECORDS SUMMARY | 2025-05-19 10:25 | XMS_ITS | Encounter Summary ---
Author Organization [facility] Address [address] [place] [address] Phone Care Team Providers Care Poacher Wringer Operator Name Role Phone Marco Woods MD Primary Care Provider Kirsten Niño MD Unavailable Chin Burrows MD Unavailable Michelle Mendes APRN, HIGHBALLER Unavailable Chantelle Nix APRN, HIGHBALLER Unavailable Analia Meza MD Unavailable [phone] Reason for Visit * Reason Comments Medication Refill Encounter Details Date Type Department Care Team (Late st Contact Info) Description 12/26/2023 Refill [facility] Medical Group - Family Medicine - [place] [address] [place] [address] Marco Woods MD #[address] [address] Medication Refill Social History Tobacco Use Types Packs/Day Years Used Date Smoking Tobacco: Never Smokeless Tobacco: Never Alcohol Use Standard Drinks/Week Comments Not Currently 0 (1 standard drink = 0.6 oz pur e alcohol) [facility] Utilities Answer Date Recorded In the past 12 months has [employer] electric, gas, oil, or water company threatened [...] declined 11/28/2023 How often do you attend sikh or spiritism serv ices? Patient declined 11/28/2023 Do you belong to any clubs o r organizations such as sikh groups, unions, fraternal or athletic groups, or [...] Total Score - Questions 1-9 18 10/24 [facility] - Occupational Stress Questionnaire Answer Date [...] Sex Assigned at Female 11/22/2023 11:58 AM POWER SYSTEM DISPATCHER Legal Sex Female 11:34 PM CDT Gender Identity Female 11/22/2023 11:58 AM POWER SYSTEM DISPATCHER Sexual Orientation Not on file Occupation Industry Job Start Date Job End Date disabled Not on file Not on file Not on file documented as of this encounter Miscellaneous Notes * Telephone Encounter - Amada Orozco RN - 12/27/2023 11:05 AM CST Pt should be getting this from psych. Dr Galeana is a psychiatrist. R SYSTEM DISPATCHER * Telephone Encounter - Amada Orozco RN - 12/27/2023 11:02 AM CST Images from the original note were not included. [place] [employer] Dispensed Days Supply Quantity Provider Pharmacy LITHIUM CARBONATE ER 300 MG TBCR 11/29/2023 28 56 Tablet Maria Antonia Galeana MD [facility] -Alt... LITHIUM CARBONATE ER 300 MG TBCR 11/06/2023 28 56 Tablet Maria Antonia Galeana MD [facility] -Alt... R SYSTEM DISPATCHER documented in this encounter Plan of Treatment Upcoming Encounters Date Type Department Care Team (Late st Contact Info) Description 06/12/2025 11:00 AM CDT Office Visit [facility] - Family Medicine - [place] #[address] [place] [address] Marco Woods MD #2 [facility] [address] [place] [address] 07/01/2025 11:00 AM CDT Office Visit [facility] Medical [facility] - Ear, Nose & Throat - [place] #2 [place] [address] Analia Meza MD #2 [facility] [address] [place] [address] 07/03/2025 5:30 PM CDT [facility] [address] [place] [address] Analia Meza MD #2 [facility] [address] [place] [address] Discharge Disposition: Discharged to home or Selfcare 07/17/2025 10:30 AM CDT Office Visit [facility] Medical [facility] - Pulmonology & Sleep Medicine - [place] #2 [place] [address] Michelle Mendes APRN, HIGHBALLER #2 [facility] [address] [place] [address] 08/11/2025 9:45 AM CDT Office Visit [facility] - Endocrinology - [place] #2 [place] [address] Kirsten Niño MD #2 [facility] [address] [place] [address] documented as of this encounter Visit Diagnoses Not on filedocumented in this encounter Additional Health Concerns Infection Onset Date Last Indicated Resolved Time COVID - 19 06/25/2024 06/25/2024 06/25/2024 6:3 6 PM CDT Assessment Noted Time PHQ-9 Depression Total Score: 18 024 10:00 AM POWER SYSTEM DISPATCHER documented as of this encounter Care Teams Poacher Wringer Operator Relationship Specialty Start Date End Date Marco Woods MD #2 [facility] [address] [place] [address] PCP - General Family Medicine 11/22/17 Kirsten Niño MD #[address] [address] Consulting Physician Endocrinology 07/17/22 Chin Burrows MD #[address] [address] Consulting Physician General Surgery 11/22/22 Michelle Mendes APRN, HIGHBALLER #2 [facility] [address] [place] [address] Nurse Practitioner Advanced Practice Nurse 08/14/22 Chantelle Nix APRN, HIGHBALLER #2 [place] [address] Nurse Practitioner Advanced Practice Nurse 02/19/24 Analia Meza MD #[address] [facility] [address] [address] Consulting Physician Otolaryngology 05/11/25 documented as of this encounter
--- OUTSIDE RECORDS SUMMARY | 2025-05-19 10:25 | XMS_ITS | Encounter Summary ---
Author Organization [facility] Address [address] [place] [address] Phone Care Team Providers Care Brim Flexer Name Role Phone Marco Woods MD Primary Care Provider Kirsten Niño MD Unavailable Chin Burrows MD Unavailable [phone] Kelsea Root RN Unavailable Unavailable Michelle Mendes APRN, SENIOR SAS DEVELOPER Unavailable Chantelle Nix APRN, SENIOR SAS DEVELOPER Unavailable Analia Meza MD Unavailable [phone] Reason for Visit * Reason Comments Medication Refill Encounter Details Date Type Department Care Team (Late st Contact Info) Description 07/21/2023 Refill [facility] - Family Medicine [facility] #[address] [place] [address] Marco Woods MD #[address] [facility] [address] [address] Medication Refill Social History Tobacco Use Types [...] Sex Assigned at Female 11/22/2023 11:58 AM CLINICAL TRIALS MANAGER Legal Sex Female 11:34 PM CDT Gender Identity Female 11/22/2023 11:58 AM CLINICAL TRIALS MANAGER Sexual Orientation Not on file Occupation [...] Description 06/12/2025 11:00 AM CDT Office Visit [facility] Medical Group - Family Medicine [facility] #2 [place] [address] Marco Woods MD #2 [facility] [address] [place] [address] 07/01/2025 11:00 AM CDT Office Visit [facility] Medical [facility] - Ear, Nose & Throat [facility] #2 [place] [address] Analia Meza MD #2 [facility] [address] [place] [address] 07/03/2025 5:30 PM CDT [facility] [address] [place] [address] Analia Meza MD #[address] [address] Discharge Disposition: Discharged to home or Selfcare 07/17/2025 10:30 AM CDT [facility] #2 [place] [address] Michelle Mendes, REFRIGERATION MECHANIC, SENIOR SAS DEVELOPER #2 [facility] [address] [place] [address] 08/11/2025 9:45 AM CDT Office Visit [facility] Medical [facility] - Endocrinology - [place] #2 [place] [address] Kirsten Niño MD #[address] [address] documented as of this encounter Visit Diagnoses Not on filedocumented in this encounter Additional Health Concerns Infection Onset Date Last Indicated Resolved Time COVID - 19 11/01/2023 11/01/2023 11/11/2023 12:1 6 AM CLINICAL TRIALS MANAGER COVID - 19 06/25/2024 06/25/2024 06/25/2024 6:36 PM CDT Assessment Noted Time PHQ-9 Depression Total Score: 0 11/22/19 10:00 AM CLINICAL TRIALS MANAGER documented as of this encounter Care Teams Brim Flexer Relationship Specialty Start Date End Date Marco Woods MD #[address] [address] PCP - General Family Medicine 11/22/17 Kirsten Niño MD #[address] [address] Consulting Physician Endocrinology 07/17/22 Chin Burrows MD #2 [facility] [address] [place] [address] Consulting Physician General Surgery 11/22/22 Kelsea Root RN [place] Title Closer 06/15/23 08/26/23 Michelle Mendes, REFRIGERATION MECHANIC, SENIOR SAS DEVELOPER #2 [facility] [address] [place] [address] Nurse Practitioner Advanced Practice Nurse 08/14/22 Chantelle Nix APRN, SENIOR SAS DEVELOPER #2 [place] [address] Nurse Practitioner Advanced Practice Nurse 02/19/24 Analia Meza MD #[address] [address] Consulting Physician Otolaryngology 05/11/25 documented as of this encounter
--- OUTSIDE RECORDS SUMMARY | 2025-05-19 10:25 | XMS_ITS | Encounter Summary ---
Author Organization [facility] Address [address] [place] [address] Phone Care Team Providers Care Guest Services Agent Name Role Phone Marco Woods MD Primary Care Provider [phone] Kirsten Niño MD Unavailable Chin Burrows MD Unavailable Michelle Mendes TANK CARPENTER, GOLD PLATER Unavailable Chantelle Nix APRN, GOLD PLATER Unavailable Analia Meza MD Unavailable [phone] Reason for Visit * Reason Onset Date Comments Medication Refill 05/18/2025 Encounter Details Date Type Department Care Team (Late st Contact Info) Description 05/18/2025 Telephone [facility] [address] [place] [address] Marco Woods MD #2 [facility] [place], [place] [id number] Medication Refill Social History Tobacco Use Types Packs/Day Years Used Date Smoking Tobacco: Never Smokeless Tobacco: Never Alcohol Use Standard Drinks/Week Comments Not Currently 0 (1 standard drink = 0.6 oz pur e alcohol) [facility] Utilities Answer Date Recorded In the [...] declined 06/25/2024 How often do you attend tenriism or episcopal serv ices? Patient declined 06/25/2024 Do you [...] 1-9 18 10/24 [facility] - Occupational Stress Questionnaire [...] place to sleep or slept in a group home (including now)? Patient declined 11/28/2023 Housing [...] time in the past 12 m [facility], were you homeless or living in a group home (including now)? Patient unable to answer 06/25/2024 Education Answer Date Recorded What is the highest level of school you have completed or the highest degree you have received? 12th grade 04/03/2023 Sexually Active Control Partners Comments Not Currently Comments No Sex and Gender Information Value Date Recorded Sex Assigned at Female 11/22/2023 11:58 AM ASSISTANT PROFESSOR OF PHYSICS Legal Sex Female 11:34 PM CDT Gender Identity Female 11/22/2023 11:58 AM ASSISTANT PROFESSOR OF PHYSICS Sexual Orientation Not on file Occupation Industry Job Start Date Job End Date disabled Not on file Not on file Not on file documented as of this encounter Miscellaneous Notes * Telephone Encounter - Catalina Cordero RN - 05/18/2025 1:04 PM CDT Situation: tramadol Background: patient contacting PCP office. Patient states she is calling to get her tramadol refilled, states she was previously told it was on a two day hold. Assessment: Per chart review- Outpatient Medication Detail Disp Refills Start End traMADol (ULTRAM) 50 MG Tablet 120 Tablet 0 05/20/2025 -- Sig: TAKE 1 TO 2 TABLETS BY MOUTH EVERY 8 HOURS NEEDED FOR MODERATE TO SEVERE PAIN Sent to pharmacy as: traMADol HCl 50 MG Oral Tablet (ULTRAM) Class: E Prescribe Notes to Pharmacy: Earliest fill date 05/20/25 - One hundred twenty tabs E-Prescribing Status: Receipt confirmed by pharmacy (05/15/2025 4:43 PM CDT) Renewals Recommendation: Patient transferred to office medication management for further assistance. documented in this encounter Plan of Treatment Upcoming Encounters Date Type Department Care Team (Late st Contact Info) Description 06/12/2025 11:00 AM CDT [facility] - Family Medicine - [place] #2 [place] [address] Marco Woods MD #[address] [address] 07/01/2025 11:00 AM CDT Office Visit [facility] Medical [facility] - Ear, Nose & Throat - [place] #2 [place] [address] Analia Meza MD #[address] [address] 07/03/2025 5:30 PM CDT [facility] [address] [place] [address] Analia Meza MD #[address] [address] Discharge Disposition: Discharged to home or Selfcare 07/17/2025 10:30 AM CDT [facility] - Pulmonology & Sleep Medicine - [place] #2 [place] [address] Michelle Mendes APRN, GOLD PLATER #2 [facility] [address] [place] [address] 08/11/2025 9:45 AM CDT Office Visit [facility] Medical [facility] - Endocrinology - [place] #2 [place] [address] Kirsten Niño MD #[address] [place] [address] documented as of this encounter Visit Diagnoses Not on filedocumented in this encounter Additional Health Concerns Assessment Noted Time PHQ-9 Depression Total Score: 18 024 10:00 AM ASSISTANT PROFESSOR OF PHYSICS documented as of this encounter Care Teams Guest Services Agent Relationship Specialty Start Date End Date Marco Woods MD #[address] [address] PCP - General Family Medicine 11/22/17 Kirsten Niño MD #[address] [address] Consulting Physician Endocrinology 07/17/22 Chin Burrows MD #[address] [place] [address] Consulting Physician General Surgery 11/22/22 Michelle Mendes APRN, DREW #2 [facility] [address] [place] [address] Nurse Practitioner Advanced Practice Nurse 08/14/22 Chantelle Nix APRN, GOLD PLATER #2 [facility] [place] [address] Nurse Practitioner Advanced Practice Nurse 02/19/24 Analia Meza MD #2 [facility] [place] [address] [address] Consulting Physician Otolaryngology 05/11/25 documented as of this encounter
--- OUTSIDE RECORDS SUMMARY | 2025-05-19 10:25 | XMS_ITS | Encounter Summary ---
Author Organization [facility] Address [address] [place] [address] Phone Care Team Providers Care Plumbers And Top Helpers Name Role Phone Marco Woods MD Primary Care Provider Kirsten Niño MD Unavailable Chin Burrows MD Unavailable [phone] Michelle Mendes INSTRUMENT MAKER APPRENTICE, STAFF NURSE ANESTHETIST Unavailable [phone] Chantelle Nix INSTRUMENT MAKER APPRENTICE, STAFF NURSE ANESTHETIST Unavailable Analia Meza MD Unavailable [phone] Reason for Visit * Reason Onset Date Comments Advice Only 05/18/2025 Encounter Details Date Type Department Care Team (Late st Contact Info) Description 05/18/2025 Telephone [facility] [address] [place] [address] Marco Woods MD #2 [place] [address] Advice Only Social History Tobacco Use Types Packs/Day Years Used Date Smoking Tobacco: Never Smokeless Tobacco: Never Alcohol Use Standard Drinks/Week Comments Not Currently 0 (1 standard drink = 0.6 oz pur e alcohol) [facility] Utilities Answer Date Recorded In the [...] declined 06/25/2024 How often do you attend christian or christianity serv ices? Patient declined 06/25/2024 Do you belong to any clubs o r organizations such as christian groups, unions, fraternal or athletic groups, or [...] Total Score - Questions 1-9 18 10/24 [facility] - Occupational Stress Questionnaire Answer Date [...] any time in the past 12 m [facility], were you homeless or living [...] Sex Assigned at Female 11/22/2023 11:58 AM FILAMENT WOUND PARTS FABRICATOR Legal Sex Female 11:34 PM CDT Gender Identity Female 11/22/2023 11:58 AM FILAMENT WOUND PARTS FABRICATOR Sexual Orientation Not on file Occupation Industry Job Start Date Job End Date disabled Not on file Not on file Not on file documented as of this encounter Miscellaneous Notes * Telephone Encounter - Luisito Palacios RN - 05/18/2025 6:57 AM CDT Situation: Medication Refill Background: Patient contacting PCP office. Patient called prior this morning for request for Tramadol to be refilled. This has been routed to providers office. RN informed patient message and request has been sent to provider. Assessment: N/a Recommendation: Caller verbalizes understanding. No further needs at this time. * Telephone Encounter - Lizzette Leong RN - 05/18/2025 4:05 AM CDT Situation: Advice Background: Yudi, patient, contacting PCP office. Wanting to know when the office opened and had questions about tramadol prescription which has beenaddressed in previous note. Assessment: N/A Recommendation: Documentation only documented in this encounter Plan of Treatment Upcoming Encounters Date Type Department Care Team (Late st Contact Info) Description 06/12/2025 11:00 AM CDT Office Visit [facility] - Family Medicine - [place] #2 [place] [address] Marco Woods MD #[address] [address] 07/01/2025 11:00 AM CDT Office Visit [facility] Medical [facility] - Ear, Nose & Throat - [place] #2 [place] [address] Analia Meza MD #[address] [address] 07/03/2025 5:30 PM CD[facility] [address] [place] [address] Analia Meza MD #[address] [address] Discharge Disposition: Discharged to home or Selfcare 07/17/2025 10:30 AM CDT Office Visit [facility] Medical [facility] - Pulmonology & Sleep Medicine - [place] #2 [facility] [address] Michelle Mendes APRN, STAFF NURSE ANESTHETIST #2 [facility] [address] [place] [address] 08/11/2025 9:45 AM CDT Office Visit [facility] Medical Group - Endocrinology - [place] #2 [place] [address] Kirsten Niño MD #2 [facility] [address] [place] [address] documented as of this encounter Visit Diagnoses Not on filedocumented in this encounter Additional Health Concerns Assessment Noted Time PHQ-9 Depression Total Score: 18 024 10:00 AM FILAMENT WOUND PARTS FABRICATOR documented as of this encounter Care Teams Plumbers And Top Helpers Relationship Specialty Start Date End Date Marco Woods MD #2 [facility] [address] [place] [address] PCP - General Family Medicine 11/22/17 Kirsten Niño MD #[address] [address] Consulting Physician Endocrinology 07/17/22 Chin Burrows MD #[address] [address] Consulting Physician General Surgery 11/22/22 Michelle Mendes APRN, STAFF NURSE ANESTHETIST #2 [facility] [address] [place] [address] Nurse Practitioner Advanced Practice Nurse 08/14/22 Chantelle Nix APRN, DREW #2 [facility] [place] [address] Nurse Practitioner Advanced Practice Nurse 02/19/24 Analia Meza MD #[address] [address] Consulting Physician Otolaryngology 05/11/25 documented as of this encounter
--- OUTSIDE RECORDS SUMMARY | 2025-05-19 10:25 | XMS_ITS | Encounter Summary ---
Author Organization [facility] Address [address] [place] [address] Phone Care Team Providers Care It Support Analyst Name Role Phone Marco Woods MD Primary Care Provider Kirsten Niño MD Unavailable Chin Burrows MD Unavailable Michelle Mendes COKE CRANE OPERATOR, SUPERVISOR AIRCRAFT MAINTENANCE Unavailable [phone] Chantelle Nix COKE CRANE OPERATOR, SUPERVISOR AIRCRAFT MAINTENANCE Unavailable Analia Meza MD Unavailable [phone] Reason for Visit * Reason Onset Date Comments Results 03/09/2025 Encounter Details Date Type Department Care Team (Late st Contact Info) Description 03/09/2025 Telephone [facility] [address] [place] [address] Marco Woods MD #2 [place] [address] Results Social History Tobacco Use Types Packs/Day [...] declined 06/25/2024 How often do you attend rastafarian or quaker serv ices? Patient declined 06/25/2024 Do you belong to any clubs o r organizations such as rastafarian groups, unions, fraternal or athletic groups, or [...] Total Score - Questions 1-9 18 10/[address] [facility] - Occupational Stress Questionnaire Answer Date Recorded [...] a intermediate (including now)? Patient declined 11/28/2023 Housing Stability [...] any time in the past 12 m [facility], were you homeless or living in a intermediate (including now)? Patient unable to answer 06/25/2024 Education Answer Date Recorded What is the highest level of school you have completed or the highest degree you have received? 12th grade 04/03/2023 Sexually Active Control Partners Comments Not Currently Comments No Sex and Gender Information Value Date Recorded Sex Assigned at Female 11/22/2023 11:58 AM POURED PIPE MAKER Legal Sex Female 11:34 PM CDT Gender Identity Female 11/22/2023 11:58 AM POURED PIPE MAKER Sexual Orientation Not on file Occupation [...] Description 06/12/2025 11:00 AM CDT Office Visit [facility] Medical [facility] - Family Medicine [facility] #2 [place] [address] Marco Woods MD #[address] [address] 07/01/2025 11:00 AM CDT Office Visit [facility] Medical [facility] - Ear, Nose & Throat [facility] #[address] [place] [address] Analia Meza MD #[address] [address] 07/03/2025 5:30 PM CD[facility] [address] [place] [address] Analia Meza MD #[address] [address] Discharge Disposition: Discharged to home or Selfcare 07/17/2025 10:30 AM CDT [facility] - Pulmonology & Sleep Medicine - [place] #2 [facility] [place] [address] Michelle Mendes APRN, SUPERVISOR AIRCRAFT MAINTENANCE #2 [facility] [address] [place] [address] 08/11/2025 9:45 AM CDT Office Visit [facility] - Endocrinology - [place] #2 [facility] [address] Kirsten Niño MD #[address] [address] documented as of this encounter Visit Diagnoses Not on filedocumented in this encounter Additional Health Concerns Assessment Noted Time PHQ-9 Depression Total Score: 18 024 10:00 AM POURED PIPE MAKER documented as of this encounter Care Teams It Support Analyst Relationship Specialty Start Date End Date Marco Woods MD #2 [facility] [address] [place] [address] PCP - General Family Medicine 11/22/17 Kirsten Niño MD #[address] [address] Consulting Physician Endocrinology 07/17/22 Chin Burrows MD #[address] [address] Consulting Physician General Surgery 11/22/22 Michelle Mendes APRN, DREW #2 [facility] [address] [place] [address] Nurse Practitioner Advanced Practice Nurse 08/14/22 Chantelle Nix APRN, CNP #[address] [place] [address] Nurse Practitioner Advanced Practice Nurse 02/19/24 Analia Meza MD #[address] [facility] [address] [address] Consulting Physician Otolaryngology 05/11/25 documented as of this encounter
--- OUTSIDE RECORDS SUMMARY | 2025-05-19 10:25 | XMS_ITS | Encounter Summary ---
Author Organization [facility] Address [address] [place] [address] Phone Care Team Providers Care Montessori Toddler Teacher Name Role Phone Marco Woods MD Primary Care Provider [phone] Kirsten Niño MD Unavailable Chin Burrows MD Unavailable Michelle Mendes SALVAGE GRINDER, MOTORCYCLE RACER Unavailable [phone] Chantelle Nix APRN, MOTORCYCLE RACER Unavailable Analia Meza MD Unavailable [phone] Reason for Visit * Reason Onset Date Comments Medication Management 05/18/2025 Encounter Details Date Type Department Care Team (Late st Contact Info) Description 05/18/2025 Telephone [facility] [address] [place] [address] Marco Woods MD #2 [facility] [address] Medication Management Social History Tobacco Use Types Packs/Day Years Used Date Smoking Tobacco: Never Smokeless Tobacco: Never Alcohol Use Standard Drinks/Week Comments Not Currently 0 (1 standard drink = 0.6 oz pur e alcohol) [facility] Utilities Answer Date Recorded In [...] declined 06/25/2024 How often do you attend congregation or gnosticism serv ices? Patient declined 06/25/2024 Do you belong to any clubs o r organizations such as congregation groups, unions, fraternal or athletic groups, or [...] Total Score - Questions 1-9 18 10/24 [facility] - Occupational Stress Questionnaire Answer Date [...] place to sleep or slept in a [place] health care facility (including now)? Patient declined 11/28/2023 Housing Stability [...] time in the past 12 m [facility], were you homeless or living in a [place] health [place] facility (including now)? Patient unable to answer 06/25/2024 Education Answer Date Recorded What is the highest level of school you have completed or the highest degree you have received? 12th grade 04/03/2023 Sexually Active Control Partners Comments Not Currently Comments No Sex and Gender Information Value Date Recorded Sex Assigned at Female 11/22/2023 11:58 AM VOCATIONAL EDUCATION PROFESSIONAL Legal Sex Female 11:34 PM CDT Gender Identity Female 11/22/2023 11:58 AM VOCATIONAL EDUCATION PROFESSIONAL Sexual Orientation Not on file Occupation Industry Job Start Date Job End Date disabled Not on file Not on file Not on file documented as of this encounter Miscellaneous Notes * Telephone Encounter - Birdie Guerrero RN - 05/18/2025 1:44 PM CDT Spoke with patient who is wanting fill today as she is already out of medication. Informed pt she is due 05/20 as 20 day fill on 04/30. Per patient she picked up on 04/28. Spoke with pharmacy to clarify and last fill date was 04/30. Pt notified. * Telephone Encounter - Merly Mittal - 05/18/2025 10:03 AM CDT Please call Yudi Henderson (relationship to patient self) back at primary phone number [phone] regarding above referenced patient. Secondary phone number is na. Call is concerning the refill for her tramadol. She has called twice regarding the refill knowing it would be out today. She indicated that Mirtha put a hold on it until the and she is needing to have that hold taken off so she is able to pick it up today. She is out of this medication as of today. . Patient's PCP is Marco Woods MD. Thank you. documented in this encounter Plan of Treatment Upcoming Encounters Date Type Department Care Team (Late st Contact Info) Description 06/12/2025 11:00 AM CDT Office Visit [facility] Medical [facility] - Family Medicine [facility] #2 [place] [address] Marco Woods MD #2 [facility] [address] [place] [address] 07/01/2025 11:00 AM CDT Office Visit [facility] Medical [facility] - Ear, Nose & Throat [facility] #2 [place] [address] Analia Meza MD #[address] [address] 07/03/2025 5:30 PM CD[facility] [address] [place] [address] Analia Meza MD #[address] [address] Discharge Disposition: Discharged to home or Selfcare 07/17/2025 10:30 AM CDT Office Visit [facility] - Pulmonology & Sleep Medicine - [place] #2 [place] [address] Michelle Mendes APRN, MOTORCYCLE RACER #2 [facility] [address] [place] [address] 08/11/2025 9:45 AM CDT Office Visit [facility] Medical [facility] - Endocrinology - [place] #2 [place] [address] Kirsten Niño MD #[address] [address] documented as of this encounter Visit Diagnoses Not on filedocumented in this encounter Additional Health Concerns Assessment Noted Time PHQ-9 Depression Total Score: 18 024 10:00 AM VOCATIONAL EDUCATION PROFESSIONAL documented as of this encounter Care Teams Montessori Toddler Teacher Relationship Specialty Start Date End Date Marco Woods MD #[address] [address] PCP - General Family Medicine 11/22/17 Kirsten Niño MD #[address] [address] Consulting Physician Endocrinology 07/17/22 Chin Burrows MD #[address] [place] [address] Consulting Physician General Surgery 11/22/22 Michelle Mendes APRN, MOTORCYCLE RACER #2 [facility] [address] [place] [address] Nurse Practitioner Advanced Practice Nurse 08/14/22 Chantelle Nix APRN, MOTORCYCLE RACER #2 [place] [address] Nurse Practitioner Advanced Practice Nurse 02/19/24 Analia Meza MD #2 [facility] [address] [phone] Consulting Physician Otolaryngology 05/11/25 documented as of this encounter
--- OUTSIDE RECORDS SUMMARY | 2025-05-19 10:25 | XMS_ITS | Encounter Summary ---
Author Organization [facility] Address [address] [place] [address] Phone Care Team Providers Care Weekend Anchor Name Role Phone Marco Woods MD Primary Care Provider Kirsten Niño MD Unavailable Chin Burrows MD Unavailable Kelsea Root RN Unavailable Unavailable Michelle Mendes APRN, CLINICAL BIOSTATISTICIAN Unavailable [phone] Chantelle Nix APRN, CLINICAL BIOSTATISTICIAN Unavailable Analia Meza MD Unavailable [phone] Reason for Visit * Reason Comments Medication Refill Encounter Details Date Type Department Care Team (Late st Contact Info) Description 10/17/2022 [facility]ill [facility] #[address] [place] [phone] Marco Woods MD [address] [address] Medication Refill Social History Tobacco Use Types Packs/Day Years Used Date Smoking Tobacco: Never Smokeless Tobacco: Never Alcohol Use Standard Drinks/Week Comments Not Currently 0 (1 standard drink = 0.6 oz pur e alcohol) Sexually Active Control Partners Comments Not Currently Comments No Sex and Gender Information Value Date Recorded Sex Assigned at Female 11/22/2023 11:58 AM COTTAGE SUPERVISOR Legal Sex Female 11:34 PM CDT Gender Identity Female 11/22/2023 11:58 AM COTTAGE SUPERVISOR Sexual Orientation Not on file Occupation Industry Job Start Date Job End Date disabled Not on file Not on file Not on file COVID-19 Exposure Response Date Recorded In the last 10 days, have yo u been in contact with someone who was confirmed or suspected to have Coronavirus/COVID-19? No / Unsure 10/11/2022 9:23 AM COTTAGE SUPERVISOR documented as of this encounter Miscellaneous Notes * Telephone Encounter - Maria Luz Sierra RN - 10/18/2022 8:37 AM CST duplicate AGE SUPERVISOR documented in this encounter Plan of Treatment Upcoming Encounters Date Type Department Care Team (Late st Contact Info) Description 06/12/2025 11:00 AM CDT [facility] - [place] #2 [place] [address] Marco Woods MD #[address] [address] 07/01/2025 11:00 AM CDT [facility] - [facility], [facility]ose [facility] Throat - [place] #2 [place] [address] Analia Meza MD #[address] [address] 07/03/2025 5:30 PM CD[facility] [address] [place] [address] Analia Meza MD #[address] [address] Discharge Disposition: Discharged to home or Selfcare 07/17/2025 10:30 AM CDT Office Visit [facility] Group - Pulmonology & Sleep Medicine - [place] #2 [place] [address] Michelle Mendes APRN, CLINICAL BIOSTATISTICIAN #2 [facility] [address] [place] [address] 08/11/2025 9:45 AM CDT Office Visit [facility] Group - Endocrinology - [place] #2 [place] [phone] Kirsten Niño MD #2 [facility] [address] [place] [address] documented as of this encounter Visit Diagnoses Not on filedocumented in this encounter Additional Health Concerns Infection Onset Date Last Indicated Resolved Time COVID - 19 11/20/2022 11/20/2022 11/24/2022 8:51 AM COTTAGE SUPERVISOR COVID - 19 12/31/2022 12/31/2022 01/10/2023 12:1 8 AM CDT COVID - 19 Confirmed 12/31/2022 12/31/2022 023 12:17 AM CDT COVID - 19 06/01/2023 06/01/2023 06/01/2023 8:16 AM CDT COVID - 19 11/01/2023 11/01/2023 11/11/2023 12:1 6 AM COTTAGE SUPERVISOR COVID - 19 06/25/2024 06/25/2024 06/25/2024 6:36 PM CDT Assessment Noted Time PHQ-9 Depression Total Score: 0 11/22/19 10:00 AM COTTAGE SUPERVISOR documented as of this encounter Care Teams Weekend Anchor Relationship Specialty Start Date End Date Marco Woods MD #2 [facility] [address] [place] [address] PCP - General Family Medicine 11/22/17 Kirsten Niño MD #[address] [address] Consulting Physician Endocrinology 07/17/22 Chin Burrows MD #[address] [address] Consulting Physician General Surgery 11/22/22 Klesea Root, RN [place] Supervisor Knitting 06/15/23 08/26/23 Michelle Mendes APRN, CLINICAL BIOSTATISTICIAN #[address] [address] Nurse Practitioner Advanced Practice Nurse 08/14/22 Chantelle Nix APRN, CLINICAL BIOSTATISTICIAN #2 [place] [address] Nurse Practitioner Advanced Practice Nurse 02/19/24 Analia Meza MD #[address] [address] Consulting Physician Otolaryngology 05/11/25 documented as of this encounter
--- OUTSIDE RECORDS SUMMARY | 2025-05-19 10:25 | XMS_ITS | Encounter Summary ---
Author Organization [facility] Address [address] [place] [address] Phone Care Team Providers Care Manager Perioperative Name Role Phone Marco Woods MD Primary Care Provider Kirsten Niño MD Unavailable Chin Burrows MD Unavailable Kelsea Root RN Unavailable Unavailable Michelle Mendes APRN, SELECTOR PACKER Unavailable Chantelle Nix APRN, SELECTOR PACKER Unavailable Analia Meza MD Unavailable [phone] Reason for Visit * Reason Onset Date Comments Medication Management 11/26/2022 Would like pain medication Encounter Details Date Type Department Care Team (Late st Contact Info) Description 11/26/2022 [facility]phone [facility] [address] [place] [address] Marco Woods MD #2 [facility] [place] [address] Medication Management (Would like pain medication) Social History Tobacco Use Types Packs/Day Years Used Date Smoking Tobacco: Never Smokeless Tobacco: Never Alcohol Use Standard Drinks/Week Comments Not Currently 0 (1 standard drink = 0.6 oz pur e alcohol) Sexually Active Control Partners Comments Not Currently Comments No Sex and Gender Information Value Date Recorded Sex Assigned at Female 11/22/2023 11:58 AM RESEARCH QUALITY ASSURANCE SPECIALIST Legal Sex Female 11:34 PM CDT Gender Identity Female 11/22/2023 11:58 AM RESEARCH QUALITY ASSURANCE SPECIALIST Sexual Orientation Not on file Occupation Industry Job Start Date Job End Date disabled Not on file Not on file Not on file COVID-19 Exposure Response Date Recorded In the last 10 days, have yo u been in contact with someone who was confirmed or suspected to have Coronavirus/COVID-19? No / Unsure 11/29/2022 3:20 PM RESEARCH QUALITY ASSURANCE SPECIALIST documented as of this encounter Miscellaneous [...] before nurse could obtain any further information. ARCH QUALITY ASSURANCE SPECIALIST documented in this encounter Plan of Treatment Upcoming Encounters Date Type Department Care Team (Late st Contact Info) Description 06/12/2025 11:00 AM CDT [facility] #2 [place] [address] Marco Woods MD #[address] [address] 07/01/2025 11:00 AM CDT Office Visit [facility] Medical Group - Ear, Nose & Throat [facility] #2 [place] [address] Analia Meza MD #[address] [address] 07/03/2025 5:30 PM CDT [facility] [address] [place] [address] Analia Meza MD #2 [facility] [address] [place] [address] Discharge Disposition: Discharged to home or Selfcare 07/17/2025 10:30 AM CDT [facility] - Pulmonology & Sleep Medicine [facility] #2 [place] [address] Michelle Mendes, FINANCIAL SOLUTIONS ADVISOR, SELECTOR PACKER #2 [facility] [address] [place] [address] 08/11/2025 9:45 AM CDT [facility] - Endocrinology - [place] #2 [place] [address] Kirsten Niño MD #[address] [address] documented as of this encounter Visit Diagnoses Not on filedocumented in this encounter Additional Health Concerns Infection Onset Date Last Indicated Resolved Time COVID - 19 12/31/2022 12/31/2022 01/10/2023 12:1 8 AM CDT COVID - 19 Confirmed 12/31/2022 12/31/2022 023 12:17 AM CDT COVID - 19 06/01/2023 06/01/2023 06/01/2023 8:16 AM CDT COVID - 19 11/01/2023 11/01/2023 11/11/2023 12:1 6 AM RESEARCH QUALITY ASSURANCE SPECIALIST COVID - 19 06/25/2024 06/25/2024 06/25/2024 6:36 PM CDT Assessment Noted Time PHQ-9 Depression Total Score: 0 11/22/19 18 10:00 AM RESEARCH QUALITY ASSURANCE SPECIALIST documented as of this encounter Care Teams Manager Perioperative Relationship Specialty Start Date End Date Marco Woods MD #[address] [facility] [address] [address] PCP - General Family Medicine 11/22/17 Kirsten Niño MD #[address] [address] Consulting Physician Endocrinology 07/17/22 Chin Burrows MD [facility] [address] Consulting Physician General Surgery 11/22/22 Kelsea Root RN [place] Laboratory Worker 06/15/23 08/26/23 Michelle Mendes APRN, SELECTOR PACKER #[address] [address] Nurse Practitioner Advanced Practice Nurse 08/14/22 Chantelle Nix APRN, SELECTOR PACKER #2 [place] [address] Nurse Practitioner Advanced Practice Nurse 02/19/24 Analia Meza MD #2 [facility] [address] [phone] Consulting Physician Otolaryngology 05/11/25 documented as of this encounter
--- OUTSIDE RECORDS SUMMARY | 2025-05-19 10:25 | XMS_ITS | Encounter Summary ---
Author Organization [facility] Address [address] [place] [address] Phone Care Team Providers Care Lawnmower Mechanic Name Role Phone Marco Woods MD Primary Care Provider Kirsten Niño MD Unavailable Chin Burrows MD Unavailable Michelle Mendes APRN, MEDIA OPERATOR Unavailable Chantelle Nix APRN, MEDIA OPERATOR Unavailable Analia Meza MD Unavailable [phone] Reason for Visit * Reason Comments Medication Refill Encounter Details Date Type Department Care Team (Late st Contact Info) Description 01/22/2024 Refill [facility] Medical Group - Family Medicine - [place] [address] [place] [address] Marco Woods MD #[address] [address] Medication Refill Social History Tobacco Use Types Packs/Day Years Used Date Smoking Tobacco: Never Smokeless Tobacco: Never Alcohol Use Standard Drinks/Week Comments Not Currently 0 (1 standard drink = 0.6 oz pur e alcohol) [facility] Utilities Answer Date Recorded In the past 12 months has [employer] electric, gas, oil, or water company threatened [...] declined 11/28/2023 How often do you attend latter day or holiness serv ices? Patient declined 11/28/2023 Do you belong to any clubs o r organizations such as latter day groups, unions, fraternal or athletic groups, or [...] Total Score - Questions 1-9 18 10/24 [facility] - Occupational Stress Questionnaire Answer Date Recorded [...] Sex Assigned at Female 11/22/2023 11:58 AM PRODUCT DEVELOPMENT ACTUARY Legal Sex Female 11:34 PM CDT Gender Identity Female 11/22/2023 11:58 AM PRODUCT DEVELOPMENT ACTUARY Sexual Orientation Not on file Occupation Industry [...] MG Tablet Controlled Release [Pharmacy Med Name: [facility] 300MG TBCR] 56 Tablet 5 Sig: TAKE 1 TABLET BY MOUTH TWICE A DAY Not Delegated - Antimanic Agents Protocol Failed - 01/22/2024 9:25 AM Failed - This refill cannot be delegated Passed - Visit with relevant provider in past 12 months or upcoming 90 days Recent Visits Date Type Provider Dept 12/05/23 Office Visit [facility] MD [facility] 11/20/23 Office Visit Ronald Shaffer BLOOD DONOR RECRUITER, MEDIA OPERATOR [facility] [place] 10/10/23 Office Visit Rebecca Liu BLOOD DONOR RECRUITER, MEDIA OPERATOR [facility] [place] 08/24/23 Office Visit Ranjit Linder [facility] [place] 08/02/23 Office Visit Marco Woods MD [facility] [place] 05/01/23 Office Visit Marco Woods MD [facility] [place] 04/18/23 Office Visit Marco Woods MD [facility] [place] 04/03/23 Office Visit Marco Woods MD [facility] [place] 03/12/23 Office Visit [facility] 03/05/23 Office Visit Mirtha Steiner APRN, [facility] Showing recent visits within past 365 days and meeting all other requirements Future Appointments Date Type Provider Dept 03/12/24 Appointment Marco Woods MD [facility] Showing future appointments within next 90 days and meeting all other requirements documented in this encounter Plan of Treatment Upcoming Encounters Date Type Department Care Team (Late st Contact Info) Description 06/12/2025 11:00 AM CDT Office Visit [facility] Medical [facility] - Family Medicine - [place] #2 [place] [address] Marco Woods MD #[address] [address] 07/01/2025 11:00 AM CDT Office Visit [facility] Medical [facility] - Ear, Nose & Throat - [place] #2 [place] [address] Analia Meza MD #[address] [address] 07/03/2025 5:30 PM CDT Appointment [facility] CT [address] [place] [address] Analia Meza MD #2 [facility] [address] [place] [address] Discharge Disposition: Discharged to home or Selfcare 07/17/2025 10:30 AM CDT Office Visit [facility] - Pulmonology & Sleep Medicine - [place] #2 [place] [address] Michelle Mendes APRN, MEDIA OPERATOR #2 [facility] [address] [place] [address] 08/11/2025 9:45 AM CDT Office Visit [facility] Medical [facility] Endocrinology - [place] #2 [place] [address] Kirsten Niño MD #[address] [address] documented as of this encounter Visit Diagnoses Not on filedocumented in this encounter Additional Health Concerns Infection Onset Date Last Indicated Resolved Time COVID - 19 06/25/2024 06/25/2024 06/25/2024 6:36 PM CDT Assessment Noted Time PHQ-9 Depression Total Score: 18 024 10:00 AM PRODUCT DEVELOPMENT ACTUARY documented as of this encounter Care Teams Lawnmower Mechanic Relationship Specialty Start Date End Date Marco Woods MD #[address] [address] PCP - General Family Medicine 11/22/17 Kirsten Niño MD #[address] [address] Consulting Physician Endocrinology 07/17/22 Chin Burrows MD #2 [facility] [address] [place] [address] Consulting Physician General Surgery 11/22/22 Michelle Mendes APRN, MEDIA OPERATOR #2 [facility] [address] [place] [address] Nurse Practitioner Advanced Practice Nurse 08/14/22 Chantelle Nix APRN, MEDIA OPERATOR #2 [place] [address] Nurse Practitioner Advanced Practice Nurse 02/19/24 Analia Meza MD #[address] [phone] Consulting Physician Otolaryngology 05/11/25 documented as of this encounter
--- OUTSIDE RECORDS SUMMARY | 2025-05-19 10:25 | XMS_ITS | Referral Summary ---
Author Organization [facility] Medical Office Building [address] Address [address] [place] [address] Care Team Providers Care Kiln Pusher Name Role Phone Nikhil Robles MD Primary Care Provider [phone] Encounters Date Type Department Care Team Description 04/17/2025 Telephone [facility] Medical [facility] Orthopedics and Sports Medicine [address] [place] [address] [address] [place] [address] Jamie Power MD 03/30/2025 Telephone [facility] Gastroenterology at [address] [place] [address] Mishel [facility] MA from Last 3 Months Allergies Active Allergy Reactions Criticality Noted Date [...] Nasal saline spray (Simply saline, [employer] Remedies, Howell, Media) 2 second sprays or 2 squeezes into [...] on file Legal Sex Female 6:03 PM CRATE BUILDER Gender Identity Not on file Sexual Orientation Not on file Last Filed Vital Signs Vital Sign Reading Time Taken Comments Blood Pressure 170/75 09/19/2023 10:51 AM CRATE BUILDER Pulse 114 09/19/2023 2:00 PM CRATE BUILDER Temperature 36.6 C (97.8 F) 09/19/2023 10:51 AM CRATE BUILDER Respiratory Rate 18 09/19/2023 10:51 AM CRATE BUILDER Oxygen Saturation 98% 09/19/2023 10:51 AM CRATE BUILDER Inhaled Oxygen Concentration - - Weight 80.3 kg (177 lb) 09/18/2023 3:16 PM CRATE BUILDER Height 157.5 cm (5' 2) 09/18/2023 3:16 PM CRATE BUILDER Body Mass Index 32.37 09/18/2023 3:16 PM CRATE BUILDER Plan of Treatment Not on file Insurance [facility] MEDICARE ADVANTAGE [place] [id number] MDCR HMO REF MEDICARE ADVANTAGE [place] [id number] Advance Directives For more information, please contact: [phone] * Full Code (Latest Code Status on File) Date Activated Date Inactivated Comments 09/18/2023 2:35 PM 09/19/2023 6:39 PM * Full Code Date Activated Date Inactivated Comments 09/18/2023 12:47 PM 09/18/2023 2:35 PM Care Teams Kiln Pusher Relationship Specialty Start Date End Date Nikhil Robles MD [address] [place] [address] PCP - General Emergency Medicine 03/12/24
--- OUTSIDE RECORDS SUMMARY | 2025-05-19 10:25 | XMS_ITS | Encounter Summary ---
Author Organization [facility] Address [address] [place] [address] Phone Care Team Providers Care Dietitian Research Name Role Phone Marco Woods MD Primary Care Provider [phone] Kirsten Niño MD Unavailable Chin Burrows MD Unavailable [phone] Kelsea Root RN Unavailable Unavailable Michelle Mendes APRN, RFID ANALYST Unavailable Chantelle Nix APRN, RFID ANALYST Unavailable Analia Meza MD Unavailable [phone] Reason for Visit * Reason Comments Medication Refill Encounter Details Date Type Department Care Team (Late st Contact Info) Description 04/23/2021 [facility]ill [facility] Gastroenterology - [place] [address] [place] [phone] Dani Garrett, DO [address] [facility] [place] [address] Medication Refill Social History Tobacco Use Types Packs/Day Years Used Date Smoking Tobacco: Never Smokeless Tobacco: Former Alcohol Use Standard Drinks/Week Comments Not Currently 0 (1 standard drink = 0.6 oz pur e alcohol) Sexually Active Control Partners Comments Not Currently Comments No Sex and Gender Information Value Date Recorded Sex Assigned at Female 11/22/2023 11:58 AM FOOD SERVICES DIRECTOR Legal Sex Female 11:34 PM CDT Gender Identity Female 11/22/2023 11:58 AM FOOD SERVICES DIRECTOR Sexual Orientation Not on file Occupation Industry [...] [facility] - Family Medicine - [place] #2 [place] [address] Marco Woods MD #[address] [address] 07/01/2025 11:00 AM CDT Office Visit [facility] - [facility], Nose & Throat - [place] #2 [place] [address] Analia Meza MD #[address] [address] 07/03/2025 5:30 PM CD[facility] [address] [place] [address] Analia Meza MD #[address] [address] Discharge Disposition: Discharged to home or Selfcare 07/17/2025 10:30 AM CDT [facility] - Pulmonology & Sleep Medicine - [place] #2 [place] [address] Michelle Mendes APRN, DREW #2 [facility] [address] [place] [address] 08/11/2025 9:45 AM CDT Office Visit [facility] - Endocrinology - [place] #2 [place] [phone] Kirsten Niño MD #2 [facility] [address] [place] [address] documented as of this encounter Visit Diagnoses Not on filedocumented in this encounter Additional Health Concerns Infection Onset Date Last Indicated Resolved Time COVID - 19 06/29/2022 06/29/2022 07/09/2022 12:1 6 AM CDT COVID - 19 11/20/2022 11/20/2022 11/24/2022 8:51 AM FOOD SERVICES DIRECTOR COVID - 19 12/31/2022 12/31/2022 01/10/2023 12:1 8 AM CDT COVID - 19 Confirmed 12/31/2022 12/31/2022 023 12:17 AM CDT COVID - 19 06/01/2023 06/01/2023 06/01/2023 8:16 AM CDT COVID - 19 11/01/2023 11/01/2023 11/11/2023 12:1 6 AM FOOD SERVICES DIRECTOR COVID - 19 06/25/2024 06/25/2024 06/25/2024 6:36 PM CDT Assessment Noted Time PHQ-9 Depression Total Score: 0 11/22/19 18 10:00 AM FOOD SERVICES DIRECTOR documented as of this encounter Care Teams Dietitian Research Relationship Specialty Start Date End Date Marco Woods MD #2 [facility] [address] [place] [address] PCP - General Family Medicine 11/22/17 Kirsten Niño MD #2 [facility] [address] [place] [address] Consulting Physician Endocrinology 07/17/22 Chin Burrows MD [facility] [phone] Consulting Physician General Surgery 11/22/22 Kelsea Root RN [place] Preschool Principal 06/15/23 08/26/23 Michelle Mendes APRN, RFID ANALYST #2 [facility] [address] [place] [address] Nurse Practitioner Advanced Practice Nurse 08/14/22 Chantelle Nix APRN, RFID ANALYST #2 [place] [address] Nurse Practitioner Advanced Practice Nurse 02/19/24 Analia Meza MD #2 [facility] [address] [phone] Consulting Physician Otolaryngology 05/11/25 documented as of this encounter
--- OUTSIDE RECORDS SUMMARY | 2025-05-19 10:25 | XMS_ITS | Encounter Summary ---
Author Organization [facility] Address [address] [place] [address] Phone Care Team Providers Care Automotive General Manager Name Role Phone Marco Woods MD Primary Care Provider [phone] Kirsten Niño MD Unavailable Chin Burrows MD Unavailable Kelsea Root RN Unavailable Unavailable Michelle Mendes APRN, GREASE RENDERER Unavailable Chantelle Nix APRN, GREASE RENDERER Unavailable Analia Meza MD Unavailable [phone] Reason for Visit * Reason Comments Medication Refill Encounter Details Date Type Department Care Team (Late st Contact Info) Description 12/16/2022 Refill [facility] [address] [place], [place] [id number] Marco Woods MD #2 [facility] [address] [place] [address] Medication Refill Social History Tobacco Use Types Packs/Day Years Used Date Smoking Tobacco: Never Smokeless Tobacco: Never Alcohol Use Standard Drinks/Week Comments Not Currently 0 (1 standard drink = 0.6 oz pur e alcohol) Sexually Active Control Partners Comments Not Currently Comments No Sex and Gender Information Value Date Recorded Sex Assigned at Female 11/22/2023 11:58 AM CRIME SCENE EXAMINER Legal Sex Female 11:34 PM CDT Gender Identity Female 11/22/2023 11:58 AM CRIME SCENE EXAMINER Sexual Orientation Not on file Occupation Industry Job Start Date Job End Date disabled Not on file Not on file Not on file COVID-19 Exposure Response Date Recorded In the last 10 days, have yo u been in contact with someone who was confirmed or suspected to have Coronavirus/COVID-19? No / Unsure 12/18/2022 9:05 AM CRIME SCENE EXAMINER documented as of this encounter Miscellaneous Notes * Telephone Encounter - Brooklyn Preciado RN - 12/19/2022 9:23 AM CST Duplicate request. E SCENE EXAMINER * Telephone Encounter - Celia Valles RN - 12/18/2022 2:00 PM CRIME SCENE EXAMINER duplicate E SCENE EXAMINER documented in this encounter Plan of Treatment Upcoming Encounters Date Type Department Care Team (Late st Contact Info) Description 06/12/2025 11:00 AM CDT [facility] - [place] #2 [place] [address] Marco Woods MD #2 [facility] [address] [place] [address] 07/01/2025 11:00 AM CDT Office Visit [facility] - [facility], Nose & Throat - [place] #2 [place] [address] Analia Meza MD #2 [facility] [address] [place] [address] 07/03/2025 5:30 PM CD[facility] [address] [place] [address] Analia Meza MD #2 [facility] [address] [place] [address] Discharge Disposition: Discharged to home or Selfcare 07/17/2025 10:30 AM CDT Office Visit [facility] - Pulmonology & Sleep Medicine - [place] #2 [place] [address] Michelle Mendes APRN, GREASE RENDERER #2 [facility] [address] [place] [address] 08/11/2025 9:45 AM CDT Office Visit [facility] - Endocrinology - [place] #2 [place] [address] Kirsten Niño MD #2 [facility] [address] [place] [address] documented as of this encounter Visit Diagnoses Diagnosis Dyspnea, unspecified type documented in this encounter Additional Health Concerns Infection Onset Date Last Indicated Resolved Time COVID - 19 12/31/2022 12/31/2022 01/10/2023 12:1 8 AM CDT COVID - 19 Confirmed 12/31/2022 12/31/2022 023 12:17 AM CDT COVID - 19 06/01/2023 06/01/2023 06/01/2023 8:16 AM CDT COVID - 19 11/01/2023 11/01/2023 11/11/2023 12:1 6 AM CRIME SCENE EXAMINER COVID - 19 06/25/2024 06/25/2024 06/25/2024 6:36 PM CDT Assessment Noted Time PHQ-9 Depression Total Score: 0 11/22/19 18 10:00 AM CRIME SCENE EXAMINER documented as of this encounter Care Teams Automotive General Manager Relationship Specialty Start Date End Date Marco Woods MD #2 [facility] [address] [place] [address] PCP - General Family Medicine 11/22/17 Kirsten Niño MD #2 [facility] [address] [place] [address] Consulting Physician Endocrinology 07/17/22 Chin Burrows MD #[address] [address] Consulting Physician General Surgery 11/22/22 Kelsea Root RN [place] Ethanol Operations Manager 06/15/23 08/26/23 Michelle Mendes APRN, GREASE RENDERER #2 [facility] [address] [place] [address] Nurse Practitioner Advanced Practice Nurse 08/14/22 Chantelle Nix APRN, GREASE RENDERER #2 [place] [address] Nurse Practitioner Advanced Practice Nurse 02/19/24 Analia Meza MD #[address] [phone] Consulting Physician Otolaryngology 05/11/25 documented as of this encounter
--- OUTSIDE RECORDS SUMMARY | 2025-05-19 10:25 | XMS_ITS | Encounter Summary ---
Author Organization [facility] Address [address] [place] [address] Phone Care Team Providers Care Wood Casket Maker Name Role Phone Marco Woods MD Primary Care Provider Kirsten Niño MD Unavailable Chin Burrows MD Unavailable Michelle Mendes PARKING METER SERVICER, ACCOUNT MANAGER FOREST SERVICE Unavailable Chantelle Nix PARKING METER SERVICER, ACCOUNT MANAGER FOREST SERVICE Unavailable Analia Meza MD Unavailable [phone] Reason for Visit * Reason Onset Date Comments Advice Only 12/01/2024 Encounter Details Date Type Department Care Team (Late st Contact Info) Description 12/01/2024 Telephone [facility] [address] [place] [address] Marco Woods MD #2 [facility] [place] [address] Advice Only Social History Tobacco Use Types Packs/Day Years Used Date Smoking Tobacco: Never Smokeless Tobacco: Never Alcohol Use Standard Drinks/Week Comments Not Currently 0 (1 standard drink = 0.6 oz pur e alcohol) [facility] Utilities Answer Date Recorded In the [...] declined 06/25/2024 How often do you attend buddhism or mormon serv ices? Patient declined 06/25/2024 Do you belong to any clubs o r organizations such as buddhism groups, unions, fraternal or athletic groups, or [...] Score - Questions 1-9 18 10/24 [facility] Occupational Stress Questionnaire Answer [...] any time in the past 12 m [facility], were you homeless or living in a assisted (including now)? Patient unable to answer 06/25/2024 Education Answer Date Recorded What is the highest level of school you have completed or the highest degree you have received? 12th grade 04/03/2023 Sexually Active Control Partners Comments Not Currently Comments No Sex and Gender Information Value Date Recorded Sex Assigned at Female 11/22/2023 11:58 AM WARD MAID Legal Sex Female 11:34 PM CDT Gender Identity Female 11/22/2023 11:58 AM WARD MAID Sexual Orientation Not on file Occupation Industry Job Start Date Job End Date disabled Not on file Not on file Not on file documented as of this encounter Miscellaneous Notes * Telephone Encounter - Shaun Hall - 12/01/2024 11:05 AM WARD MAID Symptoms: Abdominal Pain - Female - Not , Diarrhea, swollen in legs, difficulty walking Outcome: Warm transfer to an emergent RN NOW! Reason: Severe pain now The caller accepted this outcome. MAID documented in this encounter Plan of Treatment Upcoming Encounters Date Type Department Care Team (Late st Contact Info) Description 06/12/2025 11:00 AM CDT Office Visit [facility] - Family Medicine - [place] #2 [place] [address] Marco Woods MD #2 [facility] [address] [place] [address] 07/01/2025 11:00 AM CDT Office Visit [facility] - Ear, Nose & Throat - [place] #2 [place] [address] Analia Meza MD #2 [facility] [address] [place] [address] 07/03/2025 5:30 PM CD[facility] [address] [place] [address] Analia Meza MD #[address] [phone] Discharge Disposition: Discharged to home or Selfcare 07/17/2025 10:30 AM CDT Office Visit [facility] - Pulmonology & Sleep Medicine - [place] #2 [place] [address] Michelle Mendes APRN, ACCOUNT MANAGER FOREST SERVICE #2 [facility] [address] [place] [address] 08/11/2025 9:45 AM CDT Office Visit [facility] - Endocrinology - [place] #2 [facility] [place] [address] Kirsten Niño MD #2 [facility] [address] [place] [address] documented as of this encounter Visit Diagnoses Not on filedocumented in this encounter Additional Health Concerns Assessment Noted Time PHQ-9 Depression Total Score: 18 024 10:00 AM WARD MAID documented as of this encounter Care Teams Wood Casket Maker Relationship Specialty Start Date End Date Marco Woods MD #2 [facility] [address] [place] [address] PCP - General Family Medicine 11/22/17 Kirsten Niño MD #[address] [address] Consulting Physician Endocrinology 07/17/22 Chin Burrows MD #[address] [place] [address] Consulting Physician General Surgery 11/22/22 Michelle Mendes APRN, ACCOUNT MANAGER FOREST SERVICE #2 [facility] [address] [place] [address] Nurse Practitioner Advanced Practice Nurse 08/14/22 Chantelle Nix APRN, ACCOUNT MANAGER FOREST SERVICE #2 [place] [address] Nurse Practitioner Advanced Practice Nurse 02/19/24 Analia Meza MD #2 [facility] [address] [place] [address] Consulting Physician Otolaryngology 05/11/25 documented as of this encounter
--- OUTSIDE RECORDS SUMMARY | 2025-05-19 10:25 | XMS_ITS | Encounter Summary ---
Author Organization [facility] Address [address] [place] [address] Phone Care Team Providers Care Chopper Operator Name Role Phone Marco Woods MD Primary Care Provider Kirsten Niño MD Unavailable Chin Burrows MD Unavailable Kelsea Root RN Unavailable Unavailable Michelle Mendes APRN, INTELLIGENCE CONSULTANT Unavailable Chantelle Nix APRN, INTELLIGENCE CONSULTANT Unavailable Analia Meza MD Unavailable [phone] Reason for Visit * Reason Comments Medication Refill Encounter Details Date Type Department Care Team (Late st Contact Info) Description 04/25/2021 Refill [facility] [address] [place] [address] Mirtha Steiner APRN, INTELLIGENCE CONSULTANT #2 [facility] [place] [address] Medication Refill Social History Tobacco Use Types Packs/Day Years Used Date Smoking Tobacco: Never Smokeless Tobacco: Former Alcohol Use Standard Drinks/Week Comments Not Currently 0 (1 standard drink = 0.6 oz pur e alcohol) Sexually Active Control Partners Comments Not Currently Comments No Sex and Gender Information Value Date Recorded Sex Assigned at Female 11/22/2023 11:58 AM HOME CARE ATTENDANT Legal Sex Female 11:34 PM CDT Gender Identity Female 11/22/2023 11:58 AM HOME CARE ATTENDANT Sexual Orientation Not on file Occupation Industry [...] - Family Medicine - Mirtha Haq APN, INTELLIGENCE CONSULTANT 5 months ago Asthma, unspecified asthma severity, unspecified whether complicated, unspecified whether persistent [facility] - [facility] Medicine - [place] Marco Woods MD Upcoming Appointments Future Appointments In 2 months Marco Woods MD [facility] Medical [facility] - Family Medicine - [place], [facility] In 2 months Kirsten Niño MD [facility] Medical [facility] Endocrinology - [facility] In 3 months Michelle Mendes APN, INTELLIGENCE CONSULTANT [facility] Medical [facility] - Pulmonology & Sleep Medicine - [facility] OIL DIPPER - Recent and Past Visits Recent Visits Date Type Provider Dept 03/25/21 [facility] Office Visit Marco Woods MD [facility] 02/07/21 Office Visit Marco Woods MD [facility] 12/21/20 Telemedicine Mirtha Steiner APN, INTELLIGENCE CONSULTANT [facility] 11/09/20 Office Visit Marco Woods MD [facility] 09/06/20 Office Visit Marco Woods MD [facility] 06/09/20 Office Visit Marco Woods MD [facility] 04/27/20 Office Visit Marco Woods MD [facility] Showing recent visits within past 460 days with a meds authorizing provider and meeting all other requirements Future Appointments Date Type Provider Dept 06/28/21 Appointment Marco Woods MD [facility] Showing future appointments within next 90 days with a meds authorizing provider and meeting all other requirements documented in this encounter Plan of Treatment Upcoming Encounters Date Type Department Care Team (Late st Contact Info) Description 06/12/2025 11:00 AM CDT Office Visit [facility] Medical [facility] - Family Medicine - [place] #[address] [place] [address] Marco Woods MD #[address] [place] [address] 07/01/2025 11:00 AM CDT Office Visit [facility] - Ear, Nose & Throat - [place] #[address] [place] [address] Analia Meza MD #[address] [address] 07/03/2025 5:30 PM CD[facility] [address] [place] [address] Analia Meza MD #[address] [place] [address] Discharge Disposition: Discharged to home or Selfcare 07/17/2025 10:30 AM CDT [facility] - [place] #2 [place] [address] Michelle Mendes APRN, INTELLIGENCE CONSULTANT #[address] [address] 08/11/2025 9:45 AM CDT [facility] - [place] #2 [place] [address] Kirsten Niño MD #[address] [address] documented as of this encounter Visit Diagnoses Not on filedocumented in this encounter Additional Health Concerns Infection Onset Date Last Indicated Resolved Time COVID - 19 06/29/2022 06/29/2022 07/09/2022 12:1 6 AM CDT COVID - 19 11/20/2022 11/20/2022 11/24/2022 8:51 AM HOME CARE ATTENDANT COVID - 19 12/31/2022 12/31/2022 01/10/2023 12:1 8 AM CDT COVID - 19 Confirmed 12/31/2022 12/31/2022 023 12:17 AM CDT COVID - 19 06/01/2023 06/01/2023 06/01/2023 8:16 AM CDT COVID - 19 11/01/2023 11/01/2023 11/11/2023 12:1 6 AM HOME CARE ATTENDANT COVID - 19 06/25/2024 06/25/2024 06/25/2024 6:36 PM CDT Assessment Noted Time PHQ-9 Depression Total Score: 0 11/22/19 10:00 AM HOME CARE ATTENDANT documented as of this encounter Care Teams Chopper Operator Relationship Specialty Start Date End Date Marco Woods MD #2 [facility] [address] [place] [address] PCP - General Family Medicine 11/22/17 Kirsten Niño MD #2 [facility] [address] [place] [address] Consulting Physician Endocrinology 07/17/22 Chin Burrows MD #2 [facility] [address] [place] [address] Consulting Physician General Surgery 11/22/22 Kelsea Root RN [place] Training And Development Head 06/15/23 08/26/23 Michelle Mendes APRN, INTELLIGENCE CONSULTANT #2 [facility] [address] [place] [address] Nurse Practitioner Advanced Practice Nurse 08/14/22 Chantelle Nix APRN, INTELLIGENCE CONSULTANT #2 [place] [address] Nurse Practitioner Advanced Practice Nurse 02/19/24 Analia Meza MD #[address] [phone] Consulting Physician Otolaryngology 05/11/25 documented as of this encounter
--- OUTSIDE RECORDS SUMMARY | 2025-05-19 10:25 | XMS_ITS | Encounter Summary ---
Author Organization [facility] Address [address] [place] [address] Phone Care Team Providers Care Senior Strategy Manager Name Role Phone Marco Woods MD Primary Care Provider [phone] Kirsten Niño MD Unavailable Chin Burrows MD Unavailable [phone] Michelle Mendes APRN, EXPEDITER Unavailable Chantelle Nix APRN, EXPEDITER Unavailable Analia Meza MD Unavailable [phone] Reason for Visit * Reason Comments Medication Refill Encounter Details Date Type Department Care Team (Late st Contact Info) Description 01/03/2024 Refill [facility] - Family Medicine - [place] [address] [place] [address] Marco Woods MD [address] [address] Medication Refill Social History Tobacco Use Types Packs/Day Years Used Date Smoking Tobacco: Never Smokeless Tobacco: Never Alcohol Use Standard Drinks/Week Comments Not Currently 0 (1 standard drink = 0.6 oz pur e alcohol) [facility] Utilities Answer Date Recorded In the past 12 months has [email or web address] electric, gas, oil, or water company threatened [...] declined 11/28/2023 How often do you attend quaker or oriental orthodox serv ices? Patient declined 11/28/2023 Do you belong to any clubs o r organizations such as quaker groups, unions, fraternal or athletic groups, or [...] Total Score - Questions 1-9 18 10/24 [facility] - Occupational Stress Questionnaire Answer Date [...] Sex Assigned at Female 11/22/2023 11:58 AM ACTING TEACHER Legal Sex Female 11:34 PM CDT Gender Identity Female 11/22/2023 11:58 AM ACTING TEACHER Sexual Orientation Not on file Occupation Industry Job Start Date Job End Date disabled Not on file Not on file Not on file documented as of this encounter Miscellaneous Notes * Telephone Encounter - Lila Chaparro RN - 01/03/2024 11:13 AM CDT Medication(s) refilled and signed per [facility] Chronic Medication Refill Standing Order for [...] Dept 12/05/23 Office Visit Marco Woods MD [facility] [place] 11/20/23 Office Visit Ronald Shaffer APRN, EXPEDITER [facility] [place] 10/10/23 Office Visit Rebecca Liu APRN, DREW [facility] [place] 08/24/23 Office Visit Ranjit Linder MD [facility] 08/02/23 Office Visit Marco Woods MD [facility] 05/01/23 Office Visit Marco Woods MD [facility] 04/18/23 Office Visit Marco Woods MD [facility] 04/03/23 Office Visit Marco Woods MD [facility] 03/12/23 Office Visit Marco Woods MD [facility] 03/05/23 Office Visit Mirtha Steiner APRN, [facility] [place] Showing recent visits within past 365 days [...] 11:00 AM CDT [facility] Visit [facility] - Family Medicine - [place] [address] [facility] [phone] Marco Woods MD #2 [facility] [address] [place] [address] 07/01/2025 11:00 AM CDT Office Visit [facility] - Ear, Nose & Throat - [place] #2 [facility] [address] Analia Meza MD #[address] [phone] 07/03/2025 5:30 PM CDT [facility] [place] [address] Analia Meza MD #[address] [address] Discharge Disposition: Discharged to home or Selfcare 07/17/2025 10:30 AM CDT [facility] [place] #[address] [place] [phone] Michelle Mendes APRN, DREW #2 [facility] [address] [place] [address] 08/11/2025 9:45 AM CDT Office Visit [facility] - Endocrinology - [place] #2 [facility] [place] [phone] Kirsten Niño MD #2 [facility] [address] [place] [address] documented as of this encounter Visit Diagnoses Not on filedocumented in this encounter Additional Health Concerns Infection Onset Date Last Indicated Resolved Time COVID - 19 06/25/2024 06/25/2024 06/25/2024 6:36 PM CDT Assessment Noted Time PHQ-9 Depression Total Score: 18 024 10:00 AM ACTING TEACHER documented as of this encounter Care Teams Senior Strategy Manager Relationship Specialty Start Date End Date Marco Woods MD #2 [facility] [address] [place] [address] PCP - General Family Medicine 11/22/17 Kirsten Niño MD #2 [facility] [address] [place] [address] Consulting Physician Endocrinology 07/17/22 Chin Burrows MD #[address] [place] [address] Consulting Physician General Surgery 11/22/22 Michelle Mendes APRN, EXPEDITER #2 [facility] [address] [place] [address] Nurse Practitioner Advanced Practice Nurse 08/14/22 Chantelle Nix APRN, EXPEDITER #2 [place] [address] Nurse Practitioner Advanced Practice Nurse 02/19/24 Analia Meza MD #[address] [place] [address] Consulting Physician Otolaryngology 05/11/25 documented as of this encounter
--- OUTSIDE RECORDS SUMMARY | 2025-05-19 10:25 | XMS_ITS | Encounter Summary ---
Author Organization [facility] Address [address] [place] [address] Phone Care Team Providers Care Labor Relations Teacher Name Role Phone Marco Woods MD Primary Care Provider Kirsten Niño MD Unavailable Chin Burrows MD Unavailable Kelsea Root RN Unavailable Unavailable Michelle Mendes APRN, [employer] Unavailable Chantelle Nix APRN, [employer] Unavailable Analia Meza MD Unavailable [phone] Reason for Visit * Reason Comments Medication Refill Encounter Details Date Type Department Care Team (Late st Contact Info) Description 06/15/2021 Refill [facility] [address] [place] [address] Marco Woods MD #2 [facility] [place], [place] [id number] Medication Refill Social History Tobacco Use Types Packs/Day Years Used Date Smoking Tobacco: Never Smokeless Tobacco: Former Alcohol Use Standard Drinks/Week Comments Not Currently 0 (1 standard drink = 0.6 oz pur e alcohol) Sexually Active Control Partners Comments Not Currently Comments No Sex and Gender Information Value Date Recorded Sex Assigned at Female 11/22/2023 11:58 AM INFORMATION ASSISTANT Legal Sex Female 11:34 PM CDT Gender Identity Female 11/22/2023 11:58 AM INFORMATION ASSISTANT Sexual Orientation Not on file Occupation [...] [facility] 12/21/20 Telemedicine Mirtha Steiner APN, [employer] GLA[employer]IER [facility] [place] 11/09/20 Office Visit Marco Woods MD [facility] 09/06/20 Office Visit Marco Woods MD [facility] Showing recent visits within past 365 days [...] [facility] - [facility] - [place] [address] [place] [phone] Marco Woods MD #2 [facility] [address] [place] [address] 07/01/2025 11:00 AM CDT Office Visit [facility] - Ear, Nose & Throat - [place] #2 [facility] [phone] Analia Meza MD #[address] [phone] 07/03/2025 5:30 PM CDT [facility] [address] [place] [phone] Analia Meza MD #[address] [phone] Discharge Disposition: Discharged to home or Selfcare 07/17/2025 10:30 AM CDT [facility] - [place] [address] [place] [address] Michelle Mendes APRN, [employer]LA[employer]IER #2 [facility] [address] [place] [address] 08/11/2025 9:45 AM CDT Office Visit [facility] - Endocrinology - [place] [address] [place] [phone] Kirsten Niño MD #[address] [phone] documented as of this encounter Visit Diagnoses Not on filedocumented in this encounter Additional Health Concerns Infection Onset Date Last Indicated Resolved Time COVID - 19 06/29/2022 06/29/2022 07/09/2022 12:1 6 AM CDT COVID - 19 11/20/2022 11/20/2022 11/24/2022 8:51 AM INFORMATION ASSISTANT COVID - 19 12/31/2022 12/31/2022 01/10/2023 12:1 8 AM CDT COVID - 19 Confirmed 12/31/2022 12/31/2022 023 12:17 AM CDT COVID - 19 06/01/2023 06/01/2023 06/01/2023 8:16 AM CDT COVID - 19 11/01/2023 11/01/2023 11/11/2023 12:1 6 AM INFORMATION ASSISTANT COVID - 19 06/25/2024 06/25/2024 06/25/2024 6:36 PM CDT Assessment Noted Time PHQ-9 Depression Total Score: 0 11/22/19 10:00 AM INFORMATION ASSISTANT documented as of this encounter Care Teams Labor Relations Teacher Relationship Specialty Start Date End Date Marco Woods MD #[address] [facility] [address] [place] [address] PCP - General Family Medicine 11/22/17 Kirsten Niño MD #2 [facility] [address] [place] [address] Consulting Physician Endocrinology 07/17/22 Chin Burrows MD #2 [facility] [address] [place] [address] Consulting Physician General Surgery 11/22/22 Kelsea Root, RN [place] Model Set Artist 06/15/23 08/26/23 Michelle Mendes APRN, [employer]LAZIER #2 [facility] [address] [place] [address] Nurse Practitioner Advanced Practice Nurse 08/14/22 Chantelle Nix APRN, [employer] GLAZIER [address] [place] [address] Nurse Practitioner Advanced Practice Nurse 02/19/24 Analia Meza MD #2 [facility] [address] [phone] Consulting Physician Otolaryngology 05/11/25 documented as of this encounter
--- OUTSIDE RECORDS SUMMARY | 2025-05-19 10:25 | XMS_ITS | Clinical Summary ---
Author Organization [facility] Address [address] [facility] [place] [address] Phone Care Team Providers Care Hand Glove Cleaner Name Role Phone Marco Woods MD Primary Care Provider [phone] Kirsten Niño MD Unavailable Chin Burrows MD Unavailable [phone] Michelle Mendes MANAGER RELIABILITY, TIPPLE MECHANIC Unavailable Chantelle Nix APRN, TIPPLE MECHANIC Unavailable Analia Meza MD Unavailable [phone] Allergies Active Allergy Reactions Criticality Noted Date [...] daily. 90 Tablet 3 11/04/19 25 Active Linzess 145 MCG CapsuleIndicati ons:Chronic constipation TAKE 1 CAPSULE BY MOUTH EVERY MORNING BEFORE BREAKFAST 30 Capsule 2 12/25/19 25 Active furosemide (LASIX) 20 MG Tablet Take 1 Tablet by mouth every morning. 7 Tablet 03/06/20 25 Active rOPINIRole (REQUIP) 2 MG Tablet Take 1 Tablet by mouth 3 times daily for 120 days. 90 Tablet 3 03/12/20 25 025 Active amLODIPine (NORVASC) 5 MG Tablet TAKE 1 TABLET BY MOUTH DAILY 90 Tablet 2 03/31/20 25 Active levothyroxine (SYNTHROID) 150 MCG Tablet Take 1 Tablet by mouth daily. 90 Tablet 1 04/07/20 25 Active Azelastine HCl 137 MCG/SPRAY SolutionIndicat ions:PND (post-nasal drip) take 2 Sprays by inhalation 2 times daily. 30 mL 3 04/07/20 25 Active potassium chloride SA (KLORCON M) 20 MEQ Tablet Controlled Release TAKE 1 TABLET BY MOUTH DAILY 90 Tablet 04/07/20 25 Active busPIRone (BUSPAR) 5 MG Tablet 03/26/20 25 Active omeprazole (PriLOSEC) 40 MG CAPSULE DELAYED RELEASE Take 40 mg by mouth 2 times daily. 04/09/20 25 Active ondansetron (ZOFRAN-ODT) 4 MG TABLET DISPERSIBLE 04/07/20 25 Active hydrOXYzine (ATARAX) 25 MG Tablet TAKE 1 TABLET BY MOUTH EVERY 6 HOURS NEEDED FOR ITCHING 90 Tablet 04/14/20 25 Active Prolia 60 MG/ML Solution Prefilled SyringeIndicati ons:Osteoporosi s, unspecified osteoporosis type, unspecified pathological fracture presence INJECT 1 ML( 60 MG) UNDER THE SKIN ONCE FOR 1 DOSE 1 mL 04/15/20 25 Active Fluticasone-Ume clidin-Vilant (Trelegy Ellipta) 100-62.5-25 MCG/ACT AEROSOL POWDER, BREATH ACTIVATED take 1 Puff by inhalation daily. 1 Each 3 04/20/20 25 Active ramelteon (ROZEREM) 8 MG Tablet TAKE 1 TABLET BY MOUTH EVERY NIGHT 90 Tablet 1 04/21/20 25 Active lurasidone (LATUDA) 20 MG Tablet Take 20 mg by mouth nightly. 05/05/20 25 Active doxycycline hyclate (VIBRAMYCIN) 100 MG CapsuleIndicati ons:Post-nasal drip,Deviated nasal septum,Chronic sinusitis, unspecified location,Hypert rophy of both inferior nasal turbinates,Nasa l congestion,Sinu s headache Take 2 Capsules by mouth daily for 1 day, THEN 1 Capsule daily for 20 days. 22 Capsule 05/13/20 25 025 Active fluticasone (FLONASE) 50 MCG/ACT SuspensionIndic ations:Post-luli al drip,Deviated nasal septum,Chronic sinusitis, unspecified location,Hypert rophy of both inferior nasal turbinates,Nasa l congestion,Sinu s headache 2 Sprays by Nasal route daily for 30 days. Use in each nostril as directed. 9.9 mL 2 05/13/20 25 025 Active traMADol (ULTRAM) 50 MG TabletIndicatio ns:Pain of upper abdomen TAKE 1 TO 2 TABLETS BY MOUTH EVERY 8 HOURS NEEDED FOR MODERATE TO SEVERE PAIN 120 Tablet 05/20/20 25 Active OXYGEN CONCENTRATOR 2 L/min by Does not apply route as needed for Other (shortness of breath). Discontinued(E rror) ramelteon (ROZEREM) 8 MG Tablet Take 1 Tablet by mouth nightly. 90 Tablet 1 11/04/19 25 025 Discontinued Fluticasone-Ume clidin-Vilant (Trelegy Ellipta) 100-62.5-25 MCG/ACT AEROSOL POWDER, BREATH ACTIVATED take 1 Puff by inhalation daily. 1 Each 3 12/04/19 25 025 Discontinued(R eorder) furosemide (LASIX) 20 MG Tablet Take 1 Tablet by mouth Every Morning and Afternoon. 180 Tablet 03/12/20 25 025 Discontinued(M ed List Clean Up) traMADol (ULTRAM) 50 MG TabletIndicatio ns:Pain of upper abdomen Take 1-2 Tablets by mouth every 8 hours as needed for Moderate or more severe pain. 120 Tablet 04/10/20 25 025 Discontinued amoxicillin-cla vulanate (AUGMENTIN) 875-125 MG Tablet Take 1 Tablet by mouth 2 times daily for 10 days. 20 Tablet 04/11/20 25 025 Discontinued(M ed List Clean Up) fluconazole (DIFLUCAN) 150 MG Tablet Take one tablet tomorrow then repeat in 72 hours 2 Tablet 04/11/20 25 025 Discontinued(M ed List Clean Up) traMADol (ULTRAM) 50 MG TabletIndicatio ns:Pain of upper abdomen TAKE 1 TO 2 TABLETS BY MOUTH EVERY 8 HOURS NEEDED FOR MODERATE TO SEVERE PAIN 120 Tablet 04/30/20 25 025 Discontinued Hospital, Clinic, or Other Facility Administered Medication Ordered Dose Route Frequency Start Date End Date Status Denosumab (PROLIA) injection SOSY 60 mgIndications:Osteoporosis, unspecified osteoporosis type, unspecified pathological fracture presence,Hypercalcemia 60 mg SC ONCE 05/13/2025 05/13/2025 En ded Active Problems Problem Noted Date Diagnosed Date [...] Encounters Date Type Department Care Team Description 05/18/2025 Telephone [facility] [address] [place] [phone] Marco Woods MD Medication Refill 05/18/2025 Telephone [facility] [address] [place] [address] Marco Woods MD Medication Management 05/18/2025 Telephone [facility] [address] [place] [phone] Marco Woods MD Advice Only 05/15/2025 Refill [facility] [address] [place] [address] Mirtha Steiner APRN, TIPPLE MECHANIC Medication Refill 05/15/2025 Telephone [facility] [address] [place] [address] Marco Woods MD Follow-up 05/13/2025 3:00 PM CDT Immunization [facility] [place] [address] [place] [phone] Vladislav Garcia Endo Osteoporosis, unspecified osteoporosis type, unspecified pathological fracture presence (Primary Dx); Hypercalcemia Discharge Disposition: Discharged to home or Selfcare 05/13/2025 1:45 PM CDT Office Visit [facility] [place] [address] [place] [phone] Marco Woods MD Alkarmi, Ayham, MD Post-nasal drip (Primary Dx); Deviated nasal septum; Chronic sinusitis, unspecified location; Hypertrophy of both inferior nasal turbinates; Nasal congestion; Sinus headache Discharge Disposition: Discharged to home or Selfcare 05/13/2025 Telephone [facility] [address] [place] [phone] Kirsten Niño MD Results 05/11/2025 9:45 AM CDT Office Visit [facility] [address] [place] [phone] Kirsten Niño MD Acquired hypothyroidism (Primary Dx); Osteoporosis, unspecified osteoporosis type, unspecified pathological fracture presence; Hyperparathyroidism (HCC) Discharge Disposition: Discharged to home or Selfcare 05/11/2025 Travel 05/05/2025 Telephone [facility] Call [facility] [address] [place] [address] Marco Woods MD Letter for School/Work 05/04/2025 Telephone [facility] [address] [place] [address] Marco Woods MD Results 05/01/2025 Telephone [facility] [address] [place] [address] Marco Woods MD Results 05/01/2025 Telephone [facility] [address] [place] [address] [phone] Marco Woods MD Message to PCP frpm patient 04/29/2025 Nurse Triage [facility] [address] [place] [phone] Marco Woods MD Follow-up 04/28/2025 Telephone [facility] [address] [place] [phone] Marco Woods MD Results 04/26/2025 Telephone [facility] [address] [place] [phone] Marco Woods MD Follow-up 04/24/2025 Refill [facility] [address] [place] [address] Marco Woods MD Medication Refill 04/23/2025 Telephone [facility] [address] [place] [phone] Marco Woods MD Medication Management 04/21/2025 6:30 AM CDT - 04/21/2025 11:59 PM CDT Hospital Encounter [facility] [address] [place] [address] Marco Woods MD Discharge Disposition: Discharged to home or Selfcare 04/21/2025 Refill [facility] [address] [place] [address] Marco Woods MD Medication Refill 04/21/2025 Telephone [facility] [address] [place] [phone] Marco Woods MD Medication Management 04/20/2025 1:15 PM CDT Office Visit [facility] [address] [place] [address] Marco Woods MD Essential hypertension (Primary Dx); Chronic maxillary sinusitis; Chronic neck pain Discharge Disposition: Discharged to home or Selfcare 04/20/2025 Refill [facility] [address] [place] [address] Michelle Mendes APRN, TIPPLE MECHANIC Medication Refill 04/20/2025 Travel 04/20/2025 Nurse Triage [facility] [address] [place] [phone] Marco Woods MD Neck Pain 04/16/2025 Telephone [facility] [address] [place] [address] Jeniffer Devries APRN, DREW 04/15/2025 Refill [facility] [address] [place] [phone] Kirsten Niño MD Medication Refill; Care Management 04/14/2025 6:30 PM CDT Office Visit [facility] [address] [place] [phone] Marco Woods MD Carpal tunnel syndrome of right wrist (Primary Dx); Essential hypertension; Mixed hyperlipidemia; Acquired hypothyroidism; Pain of upper abdomen Discharge Disposition: Discharged to home or Selfcare 04/13/2025 Telephone [facility] [address] [place] [phone] Marco Woods MD 04/12/2025 Results Follow-Up [facility] [address] [place] [address] Jeniffer Devries APRN, DREW POC GROUP A STREP BY MOLECULAR, POCT UA AUTOMATED W/O MICRO, VAGINITIS SCREEN, MOLECULAR 04/11/2025 8:10 AM CDT Urgent Care Visit [facility] [address] [place] [phone] Jeniffer Devries APRN, CNP Vaginal discharge (Primary Dx); Sore throat; Flank pain Discharge Disposition: Discharged to home or Selfcare 04/11/2025 Refill [facility] [address] [place] [phone] Marco Woods MD Medication Refill 04/11/2025 Travel 04/10/2025 Telephone [facility] [address] [place] [phone] Marco Woods MD Advice Only 04/10/2025 [facility] [address] [place] [phone] Marco Woods MD 04/09/2025 Telephone [facility] [address] [place] [phone] Marco Woods MD Medication Management 04/08/2025 Telephone [facility] [address] [place] [phone] Marco Woods MD Form Completion; Results 04/07/2025 Refill [facility] [address] [place] [phone] Marco Woods MD Medication Refill 04/07/2025 [facility]ill [facility] [place] [address] [place] [phone] Michelle Mendes APRN, CNP Medication Refill 04/07/2025 [facility] [place] [address] [place] [address] Kirsten Niño MD 04/07/2025 Telephone [facility] [address] [place] [phone] Marco Woods MD Medication Management 04/06/2025 Telephone [facility] [address] [place] [address] Marco Woods MD 04/06/2025 Results Follow-Up [facility] [address] [place] [address] Marco Woods MD EMG 04/03/2025 Refill [facility] [address] [place] [address] Marco Woods MD Follow-up; Medication Refill 04/02/2025 2:30 PM CDT [facility] [address] [place] [address] Marco Woods MD Bilateral hand numbness Discharge Disposition: Discharged to home or Selfcare 04/02/2025 Travel 03/30/2025 Refill [facility] [address] [place] [address] Marco Woods MD Medication Refill 03/30/2025 Telephone [facility] [address] [place] [phone] Marco Woods MD 03/30/2025 Refill [facility] [place] [address] [place] [address] Michelle Mendes APRN, DREW Medication Refill 03/30/2025 Refill [facility] [address] [place] [address] Marco Woods MD Medication Refill 03/29/2025 Telephone [facility] [address] [place] [address] Marco Woods MD 03/25/2025 Refill [facility] [address] [place] [phone] Marco Woods MD Medication Management 03/24/2025 Telephone [facility] [address] [place] [address] Marco Woods MD 03/24/2025 Telephone [facility] [address] [place] [phone] Marco Woods MD Message to PCP from patient; Medication Refill 03/17/2025 Telephone [facility] [address] [place] [phone] Marco Woods MD Advice Only 03/13/2025 Refill [facility] [address] [place] [address] Marco Woods MD Medication Refill 03/12/2025 8:00 AM CDT Office Visit [facility] [address] [place] [address] Marco Woods MD Peripheral edema (Primary Dx); Acquired hypothyroidism Discharge Disposition: Discharged to home or Selfcare 03/12/2025 Telephone [facility] [address] [place] [phone] Marco Woods MD Need Order 03/12/2025 Telephone [facility] [address] [place] [address] Michelle Mendes APRN, TIPPLE MECHANIC Medication Management 03/10/2025 Telephone [facility] [address] [place] [phone] Marco Woods MD Follow up/Information 03/09/2025 6:09 PM CDT - 03/09/2025 8:45 PM CDT [facility] [address] [place] [address] Nikhil Robles PAC DOE (dyspnea on exertion) Discharge Disposition: Discharged to home or Selfcare 03/09/2025 Travel 03/09/2025 Telephone [facility] [address] [place] [phone] Marco Woods MD Results 03/09/2025 Telephone [facility] [address] [place] [phone] Marco Woods MD Medication Management; Shortness of Breath 03/09/2025 Telephone [facility] [address] [place] [phone] Marco Woods MD Medication Management 03/09/2025 Nurse Triage [facility] [address] [place] [phone] Marco Woods MD Shortness of Breath 03/08/2025 Results Follow-Up [facility] [address] [place] [phone] Kirsten Niño MD THYROID STIMULATING HORMONE (TSH), THYROXINE (T4) FREE 03/06/2025 9:46 AM CDT - 03/06/2025 11:59 PM CDT Hospital Encounter [facility] [address] [place] [address] Marco Woods MD Discharge Disposition: Discharged to home or Selfcare 03/06/2025 Nurse Triage [facility] [address] [place] [phone] Marco Woods MD Advice Only; Leg Swelling 03/06/2025 Telephone [facility] [address] [place] [phone] Marco Woods MD Follow-up 03/05/2025 1:15 PM CDT Office Visit [facility] [address] [place] [address] Marco Woods MD Peripheral edema (Primary Dx); SANDOVAL (dyspnea on exertion); Bilateral hand numbness Discharge Disposition: Discharged to home or Selfcare 03/05/2025 Travel 03/05/2025 Nurse Triage [facility] Call Center [address] [place] [address] Marco Woods MD Edema 03/04/2025 Telephone [facility] [place] [address] [place] [address] Kirsten Niño MD Advice Only 03/02/2025 Refill [facility] [place] [facility] [address] [place] [address] Marco Woods MD Medication Management 02/23/2025 Telephone [facility] [place] [address] [place] [address] Michelle Mendes APRN, TIPPLE MECHANIC from Last 3 Months Immunizations Immunization Administration Dates Next Due Covid-19, Mrna, Lnp-s, Pf, 3 0 Mcg/0.3 Ml Dose ([employer] [place]) 04/23/2021,03/26/2021 Hepatitis A And Hepatitis B Vaccine [...] oz pur e alcohol) [facility] [employer] Answer Date Recorded In the past 12 months has th e electric, gas, oil, or water company [...] declined 06/25/2024 How often do you attend adventism or pentecostalism serv ices? Patient declined 06/25/2024 Do you belong to any clubs o r organizations such as adventism groups, unions, fraternal or athletic groups, or [...] Total Score - Questions 1-9 18 10/24 [facility] Occupat ional [facility] - Occupational Stress Questionnaire Answer Date [...] any time in the past 12 m [facility], were you homeless or living in a half-way (including now)? Patient unable to answer 06/25/2024 Education Answer Date Recorded What is the highest level of school you have completed or the highest degree you have received? 12th grade 04/03/2023 Sexually Active [employer] Comments Not Currently Comments No Sex and Gender Information Value Date Recorded Sex Assigned at Female 11/22/2023 11:58 AM AUTOMATION MANAGER Legal Sex Female 11:34 PM CDT Gender Identity Female 11/22/2023 11:58 AM AUTOMATION MANAGER Sexual Orientation Not on file Occupation Industry Job Start Date Job End Date disabled Not on file Not on file Not on file Last Filed Vital Signs Vital Sign Reading Time Taken Comments Blood Pressure 160/88 05/13/2025 1:43 PM CDT Pulse 76 05/13/2025 1:40 PM CDT Temperature 36.3 C (97.4 F) 05/13/2025 1:43 PM CDT Respiratory Rate 18 05/13/2025 1:43 PM CDT Oxygen Saturation 97% 05/13/2025 1:40 PM CDT Inhaled Oxygen Concentration - - Weight 80.7 kg (178 lb) 05/13/2025 1:43 PM CDT Height 149.9 cm (4' 11) 05/13/2025 1:40 PM CDT Body Mass Index 35.95 05/13/2025 1:40 PM CDT Plan of Treatment Upcoming Encounters Date Type Department Care Team (Late st Contact Info) Description 06/12/2025 11:00 AM CDT Office Visit [facility] Medical Group - Family Medicine [facility] [address] [place] [phone] Marco Woods MD #2 [facility] [address] [place] [address] 07/01/2025 11:00 AM CDT Office Visit [facility] Medical Group - Ear, Nose & Throat [facility] [address] [place] [phone] Analia Meza MD #2 [facility] [address] [place] [phone] 07/03/2025 5:30 PM CDT [facility] [address] [place] [phone] Analia Meza MD #[address] [phone] Discharge Disposition: Discharged to home or Selfcare 07/17/2025 10:30 AM CDT Office Visit [facility] - [facility] [place] [address] [place] [address] Michelle Mendes APRN, TIPPLE MECHANIC #2 [facility] [address] [place] [address] 08/11/2025 9:45 AM CDT [facility] [place] [address] [place] [phone] Kirsten Niño MD #[address] [phone] Health Maintenance Due Date Last Done Comments Cologuard 2000 Immunochemical Fecal Occult Blood 2000 Hepatitis B Immunization (2 of 3 - Hep B Twinrix 3-dose series) 04/01/2015 03/04/2015 Respiratory Syncytial Virus (RSV) Immunization (Adult) (1 - Risk 60-74 years 1-dose series) 2015 Zoster Immunization (2 of 2) 06/04/2023 04/09/2023 Mammogram 05/08/2024 05/08/2023, 01/21, 01/03/2021, Additional history exists SARS-COV-2 Immunization ( season) 2024 08/05/2023, 04/23/2021, 03/26/2021 Influenza Immunization (#1) 06/22/202507/22, 09/10/2022, 06/09/2021, Additional history exists DEXA Bone [...] this topic Medical Devices Implanted Type Area Nursery Attendant Device Identifier Shelf Expiration Date Model / Serial / Lot Clip 360 Resolution 235cm - [id number] Implanted:Qty: 2 on 07/12/2020 by Dani Garrett DO at [facility] IMPLANT [employer] 05/03/2023 [id number] / [id number] / [id number] Procedures Procedure Name Priority Date/Time Associated Diagnosis Comments NASAL ENDOSCOPY,DX Routine 05/13/2025 1: 45 PM CDT Post-nasal drip Deviated nasal septum Chronic sinusitis, unspecified location Hypertrophy of both inferior nasal turbinates Nasal congestion Sinus headache THYROXINE (T4) FREE Routine 05/13/2025 6 :46 AM CDT Osteoporosis, unspecified osteoporosis type, unspecified pathological fracture presence Acquired hypothyroidism Hyperparathyroidis m (HCC) THYROID STIMULATING HORMONE (TSH) Routine 05/13/2025 6:46 AM CDT Osteoporosis, unspecified osteoporosis type, unspecified pathological fracture presence Acquired hypothyroidism Hyperparathyroidis m (HCC) VITAMIN D, 25 HYDROXY TOTAL Routine 05/13/2025 6:46 AM CDT Osteoporosis, unspecified osteoporosis type, unspecified pathological fracture presence Acquired hypothyroidism Hyperparathyroidis m (HCC) PARATHYROID HORMONE PTH INTACT Routine 05/13/2025 6:46 AM CDT Osteoporosis, unspecified osteoporosis type, unspecified pathological fracture presence Acquired hypothyroidism Hyperparathyroidis m (HCC) XR CERVICAL SPINE MINIMUM 4 VIEWS (4 OR 5V) Routine 04/21/2025 7:05 AM CDT Chronic neck pain VAGINITIS SCREEN, MOLECULAR Routine 04/11/2025 8:54 AM CDT Vaginal discharge POCT UA AUTOMATED W/O MICRO Routine 04/11/2025 8:21 AM CDT Flank pain POC GROUP A STREP BY MOLECULAR Routine 04/11/2025 8:21 AM CDT Sore throat EMG Routine 04/02/2025 12:00 AM CDT Bilateral hand numbness IMAGE GENERIC SCAN 03/30/2025 12:00 AM CDT EXTERNAL GASTROENTEROLOGY REFERRAL Less Than 4 weeks 03/26/2025 12:00 AM CDT XR CHEST SINGLE VIEW PORTABLE STAT 03/09/2025 [...] CDT XR CHEST 2 VIEWS Routine 03/06/2025 10:20 AM CDT Peripheral edema SANDOVAL (dyspnea on [...] osteoporosis type, unspecified pathological fracture presence Hypercalcemia Hyperparathyroidis m (HCC) THYROID STIMULATING HORMONE (TSH) Routine 03/06/2025 9:36 AM CDT Acquired hypothyroidism Osteoporosis, unspecified osteoporosis type, unspecified pathological fracture presence Hypercalcemia Hyperparathyroidis m (HCC) B-TYPE NATRIURETIC PEPTIDE (BNP) Routine 03/06/2025 9:36 AM CDT Peripheral edema SANDOVAL (dyspnea on exertion) HM COLONOSCOPY 12/11/2024 12:00 AM AUTOMATION MANAGER YU BONE DENSITOMETRY AXIAL SKELETON Routine 11/28/2024 2:24 PM AUTOMATION MANAGER Hyperparathyroidis m (HCC) Osteoporosis, unspecified osteoporosis type, unspecified pathological fracture presence YU SCREENING BILATERAL DIGITAL W CAD W NATALIIA Routine 05/08/2023 12:09 PM CDT Encounter for screening mammogram for malignant neoplasm of breast HEPATITIS PANEL ACUTE (AHP) 02/23/2023 12:00 AM CDT from Last 3 Months or Most Recently Relevant to Health Maintenance Results * NASAL ENDOSCOPY,DX (05/13/2025 1:45 PM CDT) Other Narrative Analia Meza MD - 05/13/2025 1:45 PM CDT Analia Meza MD 05/13/2025 2:20 PM Procedure: Rigid Nasal Endoscopy Anesthesia: Bilateral Nasal Cavities sprayed with lidocaine and oxymetazoline Detail: Rigid nasal endoscopy performed bilaterally. We visualized the entire septum as well as the inferior turbinate, middle turbinate, superior turbinate and sphenoethmoid recess. We also visualized the nasopharynx. Unless mentioned below these structures were normal. Septum was deviated to the left. Bilateral nasal cavity showed hypertrophy of nasal turbinate, no mucopurulent secretion nasopharynx EBL: none Anaila Meza MD PROCEDURE/MINOR SURGICAL ORDERA BLES Final Result * VITAMIN D, 25 HYDROXY TOTAL (05/13/2025 6:46 AM CDT) VITAMIN D, 25 HYDROX 14.6 ng/mL 05/13/2025 7:51 AM CDT [facility] Blood Venipuncture / Unknown 05/13/2025 6:46 AM CDT 05/13/2025 7:16 AM CDT Narrative [facility] - 05/13/2025 7:51 AM CDT Published reference ranges for Vitamin D vary depending on time and place and method of testing, and on patient's age, sex, ethnicity and levels of other measured analytes such as parathormone, calcium and phosphorus. The result should be evaluated in conjunction with clinical findings and suspicions. [place] [employer] [facility] Clinical Practice Guidelines: Status Vitamin D levels (ng/mL) Deficient <=20 At risk of inadequacy 21-29 Sufficient 30-100 Centers of Disease Control and Prevention Guidelines: Status Vitamin D levels (ng/mL) Deficient <13 At risk of inadequacy 13-19 Sufficient 20-50 Possibly harmful >50 References: [place] [employer], 2010 Dietary reference intakes for calcium and vitamin D. [place]: The National Academies Press. Betty M, Simba N, Sri LARSEN, et al., Evaluation, treatment, and prevention of Vitamin D deficiency: an Endocrinology Clinical Practice Guideline. JCEM 2011 96: 7 0076-3822. Stella A, Laith C, Saundra D, et al., Vitamin D Status: [place], 7828-5831, [facility] data brief, no. 59, MD Hung: [facility] Statistics. 2011. us Kirsten Niño MD CHEMISTRY ORDERABLES Final Resul t Performing Organization Address City/[facility] Co de Phone Number [facility] [address] [place] [address] * THYROXINE (T4) FREE (05/13/2025 6:46 AM CDT) Only the most recent of2 resultswithin the time period is included. T4 FREE 1.0 0.7 - 1.9 ng/dL 05/13/2025 7:50 AM CDT [facility] Blood Venipuncture / Unknown 05/13/2025 6:46 AM CDT 05/13/2025 7:16 AM CDT us Kirsten Niño MD CHEMISTRY ORDERABLES Final Resul t Performing Organization Address City/[facility] Co de Phone Number [facility] [address] [place] [address] * (ABNORMAL) THYROID STIMULATING HORMONE (TSH) (05/13/2025 6:46 AM CDT) Only the most recent of2 resultswithin the time period is included. TSH 24.713(H) 0.300 - 5.000 mIU/L 05/13/2025 7:50 AM CDT [facility] Blood Venipuncture / Unknown 05/13/2025 6:46 AM CDT 05/13/2025 7:16 AM CDT us Kirsten Niño MD CHEMISTRY ORDERABLES Final Resul t Performing Organization Address City/[facility]/ZIP Co de Phone Number [facility] [address] [place] [address] * PARATHYROID HORMONE PTH INTACT (05/13/2025 6:46 AM CDT) PTH INTACT 61 13 - 85 pg/mL 05/13/2025 7:53 AM CDT [facility] Blood Venipuncture / Unknown 05/13/2025 6:46 AM CDT 05/13/2025 7:16 AM CDT us Kirsten Niño MD CHEMISTRY ORDERABLES Final Resul t Performing Organization Address [facility] Co de Phone Number [facility] [address] [place] [address] * XR CERVICAL SPINE MINIMUM 4 VIEWS (4 OR 5V) (04/21/2025 7:05 AM CDT) Anatomical Region Laterality Modality Spine, C-spine N/A Digital Radiogra phy 05/01/2025 1:14 PM CDT Impressions 05/01/2025 1:17 PM CDT IMPRESSION: 1. No acute bony abnormality in the cervical spine. 2. 2 mm anterior subluxation C2 on C3 and C3 on C4 with reversal of cervical lordosis. 3. Multilevel cervical spondylosis and degenerative disc disease as described above. Narrative 05/01/2025 1:17 PM CDT EXAM DESCRIPTION: XR CERVICAL SPINE MINIMUM 4 VIEWS (4 OR 5V) REASON FOR STUDY: Posterior neck pain radiating down to both shoulders for 6 months , no injury TECHNIQUE: 6 radiographic view(s) of the cervical spine. COMPARISON: CT cervical spine from September 04, 2024 FINDINGS: ALIGNMENT: 2 mm anterior subluxation C2 on C3 and C3 on C4 with reversal of cervical lordosis. VERTEBRAE: Vertebral bodies of normal height. Small to moderate multilevel vertebral body osteophytes. DISCS: Severe degenerative disc disease C3 through C7. Moderate narrowing of the right C4-5 neural foramen and mild narrowing of the right C5-6 and C6-7 neural foramen. Moderate narrowing of the left C5-6 neural foramen and mild narrowing of the left C6-7 neural foramen. SOFT TISSUES: Surgical changes in thyroid bed region. THIS IS AN ELECTRONICALLY VERIFIED FINAL REPORT 05/01/2025 1:14 PM - Electronically signed by Stephen Herrmann M.D. RB: RB Report ID: [id number] Reading Location: [id number] Procedure Note Stephen Herrmann MD - 05/01/2025 EXAM DESCRIPTION: XR CERVICAL SPINE MINIMUM 4 VIEWS (4 OR 5V) REASON FOR STUDY: Posterior neck pain radiating down to both shoulders for 6 months , no injury TECHNIQUE: 6 radiographic view(s) of the cervical spine. COMPARISON: CT cervical spine from September 04, 2024 FINDINGS: ALIGNMENT: 2 mm anterior subluxation C2 on C3 and C3 on C4 with reversal of cervical lordosis. VERTEBRAE: Vertebral bodies of normal height. Small to moderate multilevel vertebral body osteophytes. DISCS: Severe degenerative disc disease C3 through C7. Moderate narrowing of the right C4-5 neural foramen and mild narrowing of the right C5-6 and C6-7 neural foramen. Moderate narrowing of the left C5-6 neural foramen and mild narrowing of the left C6-7 neural foramen. SOFT TISSUES: Surgical changes in thyroid bed region. THIS IS AN ELECTRONICALLY VERIFIED FINAL REPORT 05/01/2025 1:14 PM - Electronically signed by Stephen Herrmann M.D. RB: RB Report ID: [id number] Reading Location: [id number] IMPRESSION: 1. No acute bony abnormality in the cervical spine. 2. 2 mm anterior subluxation C2 on C3 and C3 on C4 with reversal of cervical lordosis. 3. Multilevel cervical spondylosis and degenerative disc disease as described above. Marco Woods MD [facility] DIAGNOSTIC ORDERABLES Fin al Result * VAGINITIS SCREEN, MOLECULAR (04/11/2025 8:54 AM CDT) Pathologist [facility] [place] TRICHOMONAS NOT DETECTED NOT DETECTED 04/11/2025 10:35 PM CDT [facility] BACTERIAL VAGINOSIS NOT DETECTED NOT DETECTED 04/11/2025 10:35 PM CDT [facility] ABY NOT DETECTED NOT DETECTED 04/11/2025 10:35 PM CDT [facility] Comment: Aby group Not detected with the following possible Aby species: Aby albicans and/or Aby tropicalis and/or Aby parapsilosis and/or Aby dubliniensis ABY GLABRATA NOT DETECTED NOT DETECTED 04/11/2025 10:35 PM CDT [facility] ABY KRUSEI NOT DETECTED NOT DETECTED 04/11/2025 10:35 PM CDT [facility] Other VAGINAL STRUCTURE / Unknown Non-Phlebotomy Collection / Unknown 04/11/2025 8:54 AM CDT 04/11/2025 8:54 AM CDT Jeniffer Devries APRN, TIPPLE MECHANIC MICROBIOLOGY - GEN ERAL ORDERABLES Final Result Performing Organization Address City/State/[facility] Co de Phone Number [facility] [address] [place] [address], [place] * POCT UA AUTOMATED W/O MICRO (04/11/2025 8:21 AM CDT) Pathologist [facility] [place] POC UA SPECIFIC GRAVITY 1.015 URINE PH 5.0 5.0 - 9.0 POC URINE LEUKOCYTES Negative Negative Vishal/uL POC URINE NITRITE Negative Negative POC URINE PROTEIN Negative Negative mg/dL POC URINE GLUCOSE Norm Negative, Norm mg/dL POC URINE KETONE Negative Negative mg/dL POC URINE UROBILINOGEN Norm Norm, 0.2 E.U./dL (mg/dL), 1 E.U./dL (mg/dL) POC URINE BILIRUBIN Negative Negative mg/dL POC URINE BLOOD INSTRUMENT Negative Negative Miguel A/uL POC URINE COLOR Yellow POC URINE CLARITY Clear Urine 04/11/2025 8:21 AM CDT Jeniffer Elif Jaycob MANAGER RELIABILITY, TIPPLE MECHANIC POINT OF CARE TEST ING (MANUAL) Final Result * POC GROUP A STREP BY MOLECULAR (04/11/2025 8:21 AM CDT) STREP A DNA Negative Negative, Invalid PROCEDURE CONTROL Valid 04/11/2025 8:21 AM CDT Jeniffer Devries APRN, CNP POINT OF CARE TEST ING (MANUAL) Final Result * EMG (04/02/2025 12:00 AM CDT) 04/02/2025 Narrative SCAN - 04/02/2025 12:00 AM CDT Marty Blackwell MD 04/06/2025 1:50 PM Electromyogram Procedure Note Date of Procedure: 04/02/2025 Pre-operative Diagnosis: right upper extremity numbness. Post-operative Diagnosis: Indications: Diagnostic Procedure Details Motor Nerve Conduction Studies: The right median motor nerve was not reactive. The right ulnar motor nerve shows normal distal motor latency, normal motor amplitude and normal conduction velocity. Sensory Nerve Conduction Studies: The right radial sensory nerve shows normal sensory nerve peak latency and normal sensory amplitude. Median ulnar comparisons were not reactive, on the right. Median radial comparisons were not reactive, on the right. The right median sensory nerve peak latency was not reactive. The right ulnar sensory nerve shows normal sensory nerve peak latency and normal sensory amplitude. F waves: F wave latency for the right median nerve was not reactive. F wave latency for the right ulnar nerve was normal. EMG: Needle EMG of the right APB shows fibrillation potentials consistent with ongoing denervation activity, chronic neurogenic changes with reduced recruitment and polyphasic motor units. Needle EMG of the right FDI and pronator teres were normal. 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 Clinical correlation is recommended. Marco Woods MD NEUROLOGY ORDERABLES V2 Final Result SCAN * IMAGE GENERIC SCAN (03/30/2025 12:00 AM CDT) 03/30/2025 us Provider Scan IMG DIAGNOSTIC ORDERABLES Final Result SCAN * EXTERNAL GASTROENTEROLOGY REFERRAL (03/26/2025 12:00 AM CDT) 03/26/2025 Marco Woods MD OUTPT REFERRALS EXT/INT Final Result Performing Organization Address City/[facility] Co de Phone Number SCAN * XR CHEST SINGLE VIEW PORTABLE (03/09/2025 [...] Lavelle Gu M.D. KH: SWEETIE Report ID: [id number] Reading Location: [id number] Procedure Note Lavelle Gu MD - 03/09/2025 [...] Lavelle Gu M.D. KH: SWEETIE Report ID: [id number] Reading Location: [place] [address] IMPRESSION: No acute cardiopulmonary abnormality. Nikhil Robles [facility] IMG DIAGNOSTIC ORDER KRYS Final Result * TROPONIN I, HIGH SENSITIVITY (HSTRP) (03/09/2025 6:37 PM CDT) [facility] TROPONIN I, HIGH SENSITIVITY- LEACH 3 <=14 ng/L 03/09/2025 7:41 PM CDT [facility] Comment: High-sensitivity troponin I results are reported in ng/L making the result appear to be 1,000 times higher than the contemporary troponin I value which is reported in ng/ml. Results from [place]. Blood Venipuncture / Unknown 03/09/2025 6:37 PM CDT 03/09/2025 7:14 PM CDT Nikhil Robles [facility] CHEMISTRY ORDERABLES Final Result [facility] [address] [place] [address] * (ABNORMAL) CBC with Auto Differential (03/09/2025 6:37 PM CDT) Only the most recent of2 resultswithin the time period is included. [facility] WBC 13.50(H) 4.00 - 12.00 10(3)/mcL 03/09/2025 7:53 PM CDT [facility] RBC 4.10 3.80 - 5.30 10(6)/mcL 03/09/2025 7:53 PM CDT [facility] HEMOGLOBIN (HGB) 11.7(L) 12.0 - 15.8 g/dL 03/09/2025 7:53 PM CDT [facility] HEMATOCRIT (HCT) 36.7 36.0 - 47.0 % 03/09/2025 7:53 PM CDT [facility] MCV 89.5 82.0 - 96.0 fL 03/09/2025 7:53 PM CDT [facility] MCH 28.5 26.0 - 34.0 pg 03/09/2025 7:53 PM CDT [facility] MCHC 31.9 31.0 - 36.0 g/dL 03/09/2025 7:53 PM CDT [facility] PLATELET COUNT 698(H) 140 - 440 10(3)/mcL 03/09/2025 7:53 PM CDT [facility] RDW 16.2(H) 11.8 - 15.5 % 03/09/2025 7:53 PM CDT [facility] MPV 10.1 9.7 - 12.4 fL 03/09/2025 7:53 PM CDT [facility] NRBC PER 100 WBC 0 03/09/2025 7:53 PM CDT [facility] Blood Venipuncture / Unknown 03/09/2025 6:37 PM CDT 03/09/2025 7:14 PM CDT us Nikhil Robles PAC HEMATOLOGY ORDERABLE S Final Result [facility] [address] [place] [address] * Magnesium (03/09/2025 6:37 PM CDT) MAGNESIUM 1.6 1.6 - 2.6 mg/dL 03/09/2025 7:37 PM CDT [facility] Blood Venipuncture / Unknown 03/09/2025 6:37 PM CDT 03/09/2025 7:14 PM CDT us Nikhil Lara Travis PAC CHEMISTRY ORDERABLES Final Result [facility] [address] [place] [address] * (ABNORMAL) CMP (03/09/2025 6:37 PM CDT) Only the most recent of2 resultswithin the time period is included. SODIUM 138 136 - 145 mmol/L 03/09/2025 7:37 PM CDT [facility] POTASSIUM 3.7 3.5 - 5.1 mmol/L 03/09/2025 7:37 PM CDT [facility] CHLORIDE 113(H) 98 - 107 mmol/L 03/09/2025 7:37 PM CDT [facility] CO2, VENOUS 15(L) 22 - 30 mmol/L 03/09/2025 7:37 PM CDT [facility] ANION GAP 13.7 <18.0 mmol/L 03/09/2025 7:37 PM CDT [facility] GLUCOSE 110(H) 70 - 99 mg/dL 03/09/2025 7:37 PM CDT [facility] BUN 14 10 - 20 mg/dL 03/09/2025 7:37 PM CDT [facility] CREATININE, BLOOD 0.64 0.60 - 1.00 mg/dL 03/09/2025 7:37 PM CDT [facility] BUN/CREATININE RATIO 22(H) 12 - 20 ratio 03/09/2025 7:37 PM CDT [facility] TOTAL PROTEIN 7.5 6.0 - 8.0 g/dL 03/09/2025 7:37 PM CDT [facility] ALBUMIN 3.7 3.5 - 5.0 g/dL 03/09/2025 7:37 PM CDT [facility] A/G RATIO 1.0 1.0 - 2.2 03/09/2025 7:37 PM CDT [facility] CALCIUM 9.0 8.7 - 10.5 mg/dL 03/09/2025 7:37 PM CDT [facility] T BILI 0.2 0.2 - 1.2 mg/dL 03/09/2025 7:37 PM CDT [facility] SGOT (AST) 57(H) <43 U/L 03/09/2025 7:37 PM CDT [facility] SGPT (ALT) 58(H) <56 U/L 03/09/2025 7:37 PM CDT [facility] ALKALINE PHOSPHATASE 212(H) 40 - 150 U/L 03/09/2025 7:37 PM CDT [facility] GFR, ESTIMATED >60 >=60 03/09/2025 7:37 PM CDT [facility] Comment: Creatinine Clearance is the preferred criteria for selecting drug dose adjustments in renally impaired patients. The GFR is provided as additional pertinent clinical information. GFR is reported in mL/min/1.73 sq m. Calculation based on the Chronic Kidney Disease Epidemiology Collaboration (CKD- EPI) equation refit without adjustment for race. GFR, EST. >60 >=60 025 7:37 PM CDT [facility] GFR, EST. NONAFRICAN >60 >=60 03/09/2025 7:37 PM CDT [facility] Blood Venipuncture / Unknown 03/09/2025 6:37 PM CDT 03/09/2025 7:14 PM CDT Nikhil Robles PAC CHEMISTRY ORDERABLES Final Result [facility] [address] [place] [address] * B-Type Natriuretic Peptide (BNP) (03/09/2025 6:37 PM CDT) Only the most recent of2 resultswithin the time period is included. B TYPE NATRIURETIC PEPTIDE <15 <100 pg/mL 03/09/2025 7:54 PM CDT [facility] Blood Venipuncture / Unknown 03/09/2025 6:37 PM CDT 03/09/2025 7:14 PM CDT us Nikhil Robles PAC CHEMISTRY ORDERABLES Final Result Performing Organization Address [facility]/ZIP Co de Phone Number [facility] [address] [place] [address] * EKG 12 LEAD (03/09/2025 6:16 PM CDT) Ventricular Rate 62 BPM EXTERNAL EKG Atrial Rate 62 BPM EXTERNAL EKG P-R Interval 160 ms EXTERNAL EKG QRS Duration 114 ms EXTERNAL EKG Q-T Duration 470 ms EXTERNAL EKG QTC CALCULATION 477 ms EXTERNAL EKG P [place] 36 degrees EXTERNAL EKG R [place] -42 degrees EXTERNAL EKG T [place] 24 degrees EXTERNAL EKG 03/09/2025 6:16 PM CDT Impressions EXTERNAL EKG - 03/10/2025 10:14 AM CDT Normal sinus rhythm Left axis deviation Right bundle branch block Abnormal ECG When compared with ECG of 25-JUN-2024 23:32, Sinus rhythm has replaced Atrial fibrillation Vent. rate has decreased BY 77 BPM Confirmed by Karin Strong ([id number]) on 03/10/2025 10:14:45 AM Narrative Procedure Note Karin Strong DO - 03/10/2025 IMPRESSION: Normal sinus rhythm Left axis deviation Right bundle branch block Abnormal ECG When compared with ECG of 25-JUN-2024 23:32, Sinus rhythm has replaced Atrial fibrillation Vent. rate has decreased BY 77 BPM Confirmed by Krain Strong ([id number]) on 03/10/2025 10:14:45 AM us Tyrone Maurice MD IMG ECG ORDERABLES Final Result Performing Organization Address City/[facility]/ZIP Co de Phone Number EXTERNAL EKG * EKG SCAN (03/09/2025 12:00 AM CDT) 03/09/2025 us Provider Scan IMG ECG ORDERABLES Final Result RESULTING AGENCY * XR CHEST 2 VIEWS [...] Marco Carrillo M.D. MF: FRANNY Report ID: [id number] Reading Location: [id number] Procedure Note Marco Carrillo, DO - 03/09/2025 [...] Marco Carrillo M.D. MF: FRANNY Report ID: [id number] Reading Location: [place] [address] IMPRESSION: No acute cardiopulmonary abnormality. us Marco Woods MD IMG DIAGNOSTIC ORDERABLES Fin al Result * HM COLONOSCOPY (12/11/2024 12:00 AM AUTOMATION MANAGER) 12/11/2024 us Provider Scan PROCEDURE/MINOR SURGICAL ORDERAB LES Final Result SCAN * YU BONE DENSITOMETRY AXIAL SKELETON (11/28/2024 2:24 PM AUTOMATION MANAGER) Anatomical Region Laterality Modality BODY N/A Computed Radiogr aphy 12/01/2024 9:02 AM AUTOMATION MANAGER Impressions 12/01/2024 9:05 AM AUTOMATION MANAGER IMPRESSION: Low bone mass REFERENCE: Bone mineral [...] of Osteoporosis (http://www.nof.org/professionals/clinical-guidelines) Narrative 12/01/2024 9:05 AM AUTOMATION MANAGER EXAM DESCRIPTION: [facility] BONE DENSITOMETRY AXIAL SKELETON REASON FOR STUDY: 69 y/o year old F with given history of: Hyperparathyroidism. Postmenopausal status. History of prior fracture and secondary osteoporosis. Patient previously took vitamin-D. Patient takes Prolia. 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 TW: FRANC Report ID: [id number] Reading Location: [id number] Procedure Note Kaitlin Weems MD - 12/01/2024 EXAM DESCRIPTION: [facility] BONE DENSITOMETRY AXIAL SKELETON REASON FOR STUDY: 69 y/o year old F with given history of: Hyperparathyroidism. Postmenopausal status. History of prior fracture and secondary osteoporosis. Patient previously took vitamin-D. Patient takes Prolia. 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 TW: TW Report ID: [id number] Reading Location: [place] [address] IMPRESSION: Low bone mass REFERENCE: Bone mineral [...] to exams dated: 01/03/2021, 02/13/2022, and 02/06/2018 [facility]. BREAST TISSUE:The tissue of both breasts is [...] exam. Electronically signed by: Claudia guevara/declan:05/08/2023 19:31:07 Staff Sonographer(s): RT Tuan(R)(M), [facility] letter sent: Normal Exam Reading location: [place] [...] to exams dated: 01/03/2021, 02/13/2022, and 02/06/2018 [facility]. BREAST TISSUE:The tissue of both breasts is [...] next screening exam. Electronically signed by: Claudia Acosta M.D. ll/penrad:05/08/2023 19:31:07 Staff Sonographer(s): RT Tuan(R)(M), [facility] letter sent: Normal Exam Reading location: [place] BI-RADS: 2 Benign Marco Woods MD IMG MAMMO ORDERABLES Final Re sult * HEPATITIS PANEL ACUTE (AHP) (02/23/2023 12:00 AM CDT) 02/23/2023 us Provider Scan HEMATOLOGY ORDERABLES Final Resu lt SCAN from Last 3 Months or Most Recently Relevant to Health Maintenance Insurance MEDICAID [place] Member Subscriber Plan / Payer (Ef fective 2024-Present) Name:Yudi Henderson Relation to Subscriber:Self Name:Yudi Henderson Payer ID:[id number] Group ID:NONE Type:Not on file Address: [address] [id number] MEDICARE C [employer] Advance Directives Documents on File Type Date Recorded Patient [place] Expl anation Power of Senior Medical Billing Specialist for Health Care 11/27/2022 5:01 PM POA-HC, 11/26/2022 POLST/[place] DNR 11/27/2022 5:01 PM POLST, 11/26/2022 Other [...] measures to stabilize the patient. Care Teams Hand Glove Cleaner Relationship Specialty Start Date End Date Marco Woods MD [address] [facility] [address] [place] [address] PCP - General Family Medicine 11/22/17 Kirsten Niño MD #[address] [facility] [address] [place] [phone] Consulting Physician Endocrinology 07/17/22 Chin Burrows MD [address] [facility] [address] [place] [phone] Consulting Physician General Surgery 11/22/22 Michelle Mendes APRN, TIPPLE MECHANIC #[address] [address] Nurse Practitioner Advanced Practice Nurse 08/14/22 Chantelle Nix APRN, TIPPLE MECHANIC [address] [place] [address] Nurse Practitioner Advanced Practice Nurse 02/19/24 Analia Meza MD #[address] [id number] Consulting Physician Otolaryngology 05/11/25
--- OUTSIDE RECORDS SUMMARY | 2025-05-19 10:25 | XMS_ITS | Encounter Summary ---
Author Organization [facility] Address [address] [place] [address] Phone Care Team Providers Care List Of First Job Ideas Name Role Phone Marco Woods MD Primary Care Provider [phone] Kirsten Niño MD Unavailable Chin Burrows MD Unavailable Michelle Mendes TRUCK SHOP SUPERVISOR, NURSE PRACTITIONER HOME ASSESSMENTS Unavailable Chantelle Nix APRN, NURSE PRACTITIONER HOME ASSESSMENTS Unavailable Analia Meza MD Unavailable [phone] Reason for Visit * Reason Onset Date Comments Medication Management 04/23/2025 Encounter Details Date Type Department Care Team (Late st Contact Info) Description 04/23/2025 Telephone [facility] [address] [place] [address] Marco Woods MD #2 [facility] [place] [address] Medication Management Social History Tobacco Use Types Packs/Day Years Used Date Smoking Tobacco: Never Smokeless Tobacco: Never Alcohol Use Standard Drinks/Week Comments Not Currently 0 (1 standard drink = 0.6 oz pur e alcohol) [facility] Utilities Answer Date Recorded In the [...] How often do you attend orthodoxy or jehovah's witness serv ices? Patient declined 06/25/2024 Do you [...] Total Score - Questions 1-9 18 10/24 [facility] - Occupational Stress Questionnaire Answer Date [...] long term (including now)? Patient declined 11/28/2023 Housing Stability [...] any time in the past 12 m [facility], were you homeless or living in a long term (including now)? Patient unable to answer 06/25/2024 Education Answer Date Recorded What is the highest level of school you have completed or the highest degree you have received? 12th grade 04/03/2023 Sexually Active Control Partners Comments Not Currently Comments No Sex and Gender Information Value Date Recorded Sex Assigned at Female 11/22/2023 11:58 AM MIRROR PAINTER Legal Sex Female 11:34 PM CDT Gender Identity Female 11/22/2023 11:58 AM MIRROR PAINTER Sexual Orientation Not on file Occupation Industry Job Start Date Job End Date disabled Not on file Not on file Not on file documented as of this encounter Miscellaneous Notes * Telephone Encounter - Birdie Guerrero RN - 04/27/2025 12:15 PM CDT See refill encounter. * Telephone Encounter - Matilda Merino RN - 04/23/2025 9:42 PM CDT SITUATION: Pt calling regarding medication refill Name of medication: tramadol Dose: 50 mg Frequency: every 8 hours as needed Route: oral Directions: Route: Take 1-2 Tablets by mouth every 8 hours as needed for Moderate or more severe pain. - Oral Historical quantity ordered: 120 tablets, 0 refills Reason prescribed: Pain of upper abdomen [R10.10] Ordering Provider: Dr. Woods [facility]: [email or web address] RECOMMENDATION: Regular-Request routed to [employer] documented in this encounter Plan of Treatment Upcoming Encounters Date Type Department Care Team (Late st Contact Info) Description 06/12/2025 11:00 AM CDT [facility] - [facility] Medicine - [place] #2 [place] [address] Marco Woods MD #[address] [address] 07/01/2025 11:00 AM CDT Office Visit [facility] - [facility]ose [facility] #2 [place] [address] Analia Meza MD #[address] [address] 07/03/2025 5:30 PM CD[facility] [address] [place] [address] Analia Meza MD #[address] [address] Discharge Disposition: Discharged to home or Selfcare 07/17/2025 10:30 AM CDT Office Visit [facility] - Pulmonology & Sleep Medicine - [place] #2 [facility] [place] [address] Michelle Mendes APRN, NURSE PRACTITIONER HOME ASSESSMENTS #2 [facility] [address] [place] [address] 08/11/2025 9:45 AM CDT Office Visit [facility] - Endocrinology - [place] #2 [facility] [place] [address] Kirsten Niño MD #[address] [address] documented as of this encounter Visit Diagnoses Not on filedocumented in this encounter Additional Health Concerns Assessment Noted Time PHQ-9 Depression Total Score: 18 024 10:00 AM MIRROR PAINTER documented as of this encounter Care Teams List Of First Job Ideas Relationship Specialty Start Date End Date Marco Woods MD #[address] [address] PCP - General Family Medicine 11/22/17 Kirsten Niño MD #[address] [address] Consulting Physician Endocrinology 07/17/22 Chin Burrows MD #[address] [address] Consulting Physician General Surgery 11/22/22 Michelle Mendes APRN, DREW #2 [facility] [address] [place] [address] Nurse Practitioner Advanced Practice Nurse 08/14/22 Chantelle Nix APRN, CNP #[address] [place] [address] Nurse Practitioner Advanced Practice Nurse 02/19/24 Analia Meza MD #[address] [facility] [address] [phone] Consulting Physician Otolaryngology 05/11/25 documented as of this encounter
--- OUTSIDE RECORDS SUMMARY | 2025-05-19 10:25 | XMS_ITS | Encounter Summary ---
Author Organization [facility] Address [address] [place] [address] Phone Care Team Providers Care Hvac Controls Technician Name Role Phone Marco Woods MD Primary Care Provider Kirsten Niño MD Unavailable Chin Burrows MD Unavailable [phone] Michelle Mendes CASINO INVESTIGATOR, NET WEB DEVELOPER Unavailable Chantelle Nix APRN, NET WEB DEVELOPER Unavailable Analia Meza MD Unavailable [phone] Encounter Details Date Type Department Care Team (Late st Contact Info) Description 03/04/2024 Telephone [facility] [address] [place] [address] Marco Woods MD #2 [place] [address] Social History Tobacco Use Types [...] How often do you attend holiness or taoist serv ices? Patient declined 11/28/2023 [...] Total Score - Questions 1-9 18 10/24 [facility] - Occupational Stress Questionnaire Answer [...] Assigned at Female 11/22/2023 11:58 AM HOME APPLIANCES MECHANIC Legal Sex Female 11:34 PM CDT Gender Identity Female 11/22/2023 11:58 AM HOME APPLIANCES MECHANIC Sexual Orientation Not on file Occupation Industry Job Start Date Job End Date disabled Not on file Not on file Not on file documented as of this encounter Plan of Treatment Upcoming Encounters Date Type Department Care Team (Late st Contact Info) Description 06/12/2025 11:00 AM CDT [facility] - [place] #[address] [place] [address] Marco Woods MD #[address] [facility] [facility] [address] [place] [address] 07/01/2025 11:00 AM CDT Office Visit [facility] Medical Group - Ear, Nose & Throat - [place] #[address] [place] [address] Analia Meza MD #[address] [facility] [facility] [address] [place] [address] 07/03/2025 5:30 PM CDT [facility] [address] [place] [address] Analia Meza MD #2 [facility] [address] [place] [address] Discharge Disposition: Discharged to home or Selfcare 07/17/2025 10:30 AM CDT Office Visit [facility] - Pulmonology & Sleep Medicine - [place] #2 [place] [address] Michelle Mendes APRN, NET WEB DEVELOPER #2 [facility] [address] [place] [address] 08/11/2025 9:45 AM CDT Office Visit [facility] Medical [facility] - Endocrinology - [place] #2 [place] [address] Kirsten Niño MD #[address] [address] documented as of this encounter Visit Diagnoses Not on filedocumented in this encounter Additional Health Concerns Infection Onset Date Last Indicated Resolved Time COVID - 19 06/25/2024 06/25/2024 06/25/2024 6:36 PM CDT Assessment Noted Time PHQ-9 Depression Total Score: 18 024 10:00 AM HOME APPLIANCES MECHANIC documented as of this encounter Care Teams Hvac Controls Technician Relationship Specialty Start Date End Date Marco Woods MD #2 [facility] [address] [place] [address] PCP - General Family Medicine 11/22/17 Kirsten Niño MD #[address] [phone] Consulting Physician Endocrinology 07/17/22 Chin Burrows MD #[address] [phone] Consulting Physician General Surgery 11/22/22 Michelle Mendes APRN, NET WEB DEVELOPER #[address] [address] Nurse Practitioner Advanced Practice Nurse 08/14/22 Chantelle Nix APRN, NET WEB DEVELOPER #2 [place] [address] Nurse Practitioner Advanced Practice Nurse 02/19/24 Analia Meza MD #[address] [address] Consulting Physician Otolaryngology 05/11/25 documented as of this encounter
--- OUTSIDE RECORDS SUMMARY | 2025-05-19 10:25 | XMS_ITS | Clinical Summary ---
Author Organization [facility] Address [address] [place] [address] Care Team Providers Care Scada Operator Name Role Phone Unavailable Primary Care Provider Unavailabl e Social History Tobacco Use Types Packs/Day Years Used Date Smoking Tobacco: Never Assessed Comments Unknown Sex and Gender Information Value Date Recorded Sex Assigned at Not on file Legal Sex Female 10:57 PM DATABASE ARCHITECT Gender Identity Not on file Sexual Orientation Not on file Plan of Treatment Health Maintenance Due Date Last Done Comments Colorectal Cancer Screening Colonoscopy (10 Years) 1955 Hepatitis C 1973 Mammogram Screening 1995 Zoster Vaccines (1 of 2) 2005 COVID-19 Vaccine (3 - 2023-2 5 season) 2024 04/23/2021, 03/26/2021 Pneumococcal Vaccine: 50+ Years (3 of 3 - PCV20 or PCV21) 06/19/2026 06/19/2021, 08/30/2017 RSV Immunization or 60+ Years (1 - 1-dose 75+ series) 2030 DTaP, Tdap and Td Vaccines ( 2 - Td or Tdap) 07/16/2031 07/16/2021 Dexa Scan (General) Completed 01/12/2021 Meningococcal B Vaccine Aged Out No l onger eligible based on patient's age to complete this topic Meningococcal Vaccine Aged Out No drew raiza eligible based on patient's age to complete this topic RSV Immunizations Under 20 Months Aged Out No longer eligible b ased on patient's age to complete this topic
--- OUTSIDE RECORDS SUMMARY | 2025-05-19 10:25 | XMS_ITS | Encounter Summary ---
Author Organization [facility] Address [address] [place] [address] Phone Care Team Providers Care Supervisor Polishing Name Role Phone Marco Woods MD Primary Care Provider [phone] Kirsten Niño MD Unavailable Chin Burrows MD Unavailable [phone] Michelle Mendes BRANCH COORDINATOR, HIM TECH Unavailable Chantelle Nix APRN, HIM TECH Unavailable Analia Meza MD Unavailable [phone] Encounter Details Date Type Department Care Team (Late st Contact Info) Description 02/12/2024 Telephone [facility] [address] [place] [address] Marco Woods MD #2 [facility] [place] [address] Social History Tobacco Use Types Packs/Day Years Used Date Smoking Tobacco: Never Smokeless Tobacco: Never Alcohol Use Standard Drinks/Week Comments Not Currently 0 (1 standard drink = 0.6 oz pur e alcohol) [facility] Utilities Answer Date Recorded In [...] declined 11/28/2023 How often do you attend synagogue or episcopal serv ices? Patient declined 11/28/2023 Do you belong to any clubs o r organizations such as synagogue groups, unions, fraternal or athletic groups, or [...] Score - Questions 1-9 18 10/24 [facility] - Occupational Stress Questionnaire Answer Date Recorded [...] Sex Assigned at Female 11/22/2023 11:58 AM ARTIFICIAL FLY TIER Legal Sex Female 11:34 PM CDT Gender Identity Female 11/22/2023 11:58 AM ARTIFICIAL FLY TIER Sexual Orientation Not on file Occupation Industry Job Start Date Job End Date disabled Not on file Not on file Not on file documented as of this encounter Plan of Treatment Upcoming Encounters Date Type Department Care Team (Late st Contact Info) Description 06/12/2025 11:00 AM CDT [facility] Visit [facility] - [place] #[address] [place] [address] Marco Woods MD #[address] [facility] [address] [place] [address] 07/01/2025 11:00 AM CDT Office Visit [facility] Medical Group - Ear, Nose & Throat - [place] #[address] [place] [address] Analia Meza MD #2 [facility] [address] [place] [address] 07/03/2025 5:30 PM CDT [facility] [address] [place] [address] Analia Meza MD #2 [facility] [address] [place] [address] Discharge Disposition: Discharged to home or Selfcare 07/17/2025 10:30 AM CDT Office Visit [facility] - Pulmonology & Sleep Medicine - [place] #2 [place] [address] Michelle Mendes APRN, HIM TECH #2 [facility] [address] [place] [address] 08/11/2025 9:45 AM CDT Office Visit [facility] - Endocrinology - [place] #2 [place] [address] Kirsten Niño MD #[address] [address] documented as of this encounter Visit Diagnoses Not on filedocumented in this encounter Additional Health Concerns Infection Onset Date Last Indicated Resolved Time COVID - 19 06/25/2024 06/25/2024 06/25/2024 6:36 PM CDT Assessment Noted Time PHQ-9 Depression Total Score: 18 024 10:00 AM ARTIFICIAL FLY TIER documented as of this encounter Care Teams Supervisor Polishing Relationship Specialty Start Date End Date Marco Woods MD #2 [facility] [address] [place] [address] PCP - General Family Medicine 11/22/17 Kirsten Niño MD #[address] [phone] Consulting Physician Endocrinology 07/17/22 Chin Burrows MD #[address] [phone] Consulting Physician General Surgery 11/22/22 Michelle Mendes APRN, HIM TECH #[address] [address] Nurse Practitioner Advanced Practice Nurse 08/14/22 Chantelle Nix APRN, HIM TECH #2 [place] [address] Nurse Practitioner Advanced Practice Nurse 02/19/24 Analia Meza MD #[address] [address] Consulting Physician Otolaryngology 05/11/25 documented as of this encounter
--- OUTSIDE RECORDS SUMMARY | 2025-05-19 10:25 | XMS_ITS | Encounter Summary ---
Author Organization [facility] Address [address] [place] [address] Phone Care Team Providers Care Whitewater Rafting Guide Name Role Phone Marco Woods MD Primary Care Provider Kirsten Niño MD Unavailable Chin Burrows MD Unavailable Michelle Mendes APRN, CASH REGISTER SERVICER Unavailable [phone] Chantelle Nix APRN, CASH REGISTER SERVICER Unavailable Analia Meza MD Unavailable [phone] Reason for Visit * Reason Comments Medication Refill Encounter Details Date Type Department Care Team (Late st Contact Info) Description 01/23/2024 Refill [facility] Group - Family Medicine - [place] #[address] [place] [address] Marco Woods MD #[address] [address] Medication Refill Social History Tobacco Use Types Packs/Day Years Used Date Smoking Tobacco: Never Smokeless Tobacco: Never Alcohol Use Standard Drinks/Week Comments Not Currently 0 (1 standard drink = 0.6 oz pur e alcohol) [facility] Utilities Answer Date Recorded In the past 12 months has [employer] electric, gas, oil, or water company threatened [...] How often do you attend spiritism or christianity serv ices? Patient declined 11/28/2023 Do you [...] Score - Questions 1-9 18 10/24 [facility] - Occupational Stress Questionnaire Answer Date [...] place to sleep or slept in a alf (including now)? Patient declined 11/28/2023 Education Answer Date Recorded What is the highest level of school you have completed or the highest degree you have received? 12th grade 04/03/2023 Sexually Active Control Partners Comments Not Currently Comments No Sex and Gender Information Value Date Recorded Sex Assigned at Female 11/22/2023 11:58 AM DECK MECHANIC Legal Sex Female 11:34 PM CDT Gender Identity Female 11/22/2023 11:58 AM DECK MECHANIC Sexual Orientation Not on file Occupation [...] 28 28 Tablet Maria Antonia Galeana MD [facility] - Alt... ATORVASTATIN CALCIUM 20 MG TABS 12/13/2023 21 21 Tablet Maria Antonia Galeana MD [facility] - Alt... ATORVASTATIN 20MG TABLETS 10/06/2023 90 90 Each Marco Woods MD [facility] #... documented in this encounter Plan of Treatment Upcoming Encounters Date Type Department Care Team (Late st Contact Info) Description 06/12/2025 11:00 AM CDT Office Visit [facility] - Family Medicine - [place] #2 [facility] [place] [address] Marco Woods MD #2 [facility] [address] [place] [address] 07/01/2025 11:00 AM CDT Office Visit [facility] - Ear, Nose & Throat - [place] #2 [place] [address] Analia Meza MD #[address] [phone] 07/03/2025 5:30 PM CD[facility] [address] [place] [address] Analia Meza MD #[address] [address] Discharge Disposition: Discharged to home or Selfcare 07/17/2025 10:30 AM CDT Office Visit [facility] - Pulmonology & Sleep Medicine - [place] #2 [place] [phone] Michelle Mendes APRN, DREW #2 [facility] [address] [place] [address] 08/11/2025 9:45 AM CDT Office Visit [facility] - Endocrinology - [place] #2 [place] [address] Kirsten Niño MD #[address] [place] [address] documented as of this encounter Visit Diagnoses Not on filedocumented in this encounter Additional Health Concerns Infection Onset Date Last Indicated Resolved Time COVID - 19 06/25/2024 06/25/2024 06/25/2024 6:36 PM CDT Assessment Noted Time PHQ-9 Depression Total Score: 18 024 10:00 AM DECK MECHANIC documented as of this encounter Care Teams Whitewater Rafting Guide Relationship Specialty Start Date End Date Marco Woods MD #2 [facility] [address] [place] [address] PCP - General Family Medicine 11/22/17 Kirsten Niño MD #2 [facility] [address] [place] [address] Consulting Physician Endocrinology 07/17/22 Chin Burrows MD #[address] [phone] Consulting Physician General Surgery 11/22/22 Michelle Mendes APRN, CASH REGISTER SERVICER #2 [facility] [address] [place] [address] Nurse Practitioner Advanced Practice Nurse 08/14/22 Chantelle Nix APRN, CASH REGISTER SERVICER #2 [place] [address] Nurse Practitioner Advanced Practice Nurse 02/19/24 Analia Meza MD #[address] [phone] Consulting Physician Otolaryngology 05/11/25 documented as of this encounter
--- OUTSIDE RECORDS SUMMARY | 2025-05-19 10:25 | XMS_ITS | Encounter Summary ---
Author Organization [facility] Address [address] [place] [address] Phone Care Team Providers Care Hydraulic Barker Operator Name Role Phone aMrco Woods MD Primary Care Provider [phone] Kirsten Niño MD Unavailable Chin Burrows MD Unavailable Kelsea Root RN Unavailable Unavailable Michelle Mendes APRN, COMMERCIAL LOAN UNDERWRITER Unavailable Chantelle Nix APRN, COMMERCIAL LOAN UNDERWRITER Unavailable Analia Meza MD Unavailable [phone] Reason for Visit * Reason Comments Medication Refill Encounter Details Date Type Department Care Team (Late st Contact Info) Description 10/16/2022 Refill [facility] [address] [place] [phone] Marco Woods MD [address] [address] [address] Medication Refill Social History Tobacco Use Types Packs/Day Years Used Date Smoking Tobacco: Never Smokeless Tobacco: Never Alcohol Use Standard Drinks/Week Comments Not Currently 0 (1 standard drink = 0.6 oz pur e alcohol) Sexually Active Control Partners Comments Not Currently Comments No Sex and Gender Information Value Date Recorded Sex Assigned at Female 11/22/2023 11:58 AM MANAGER ASSET MANAGEMENT Legal Sex Female 11:34 PM CDT Gender Identity Female 11/22/2023 11:58 AM MANAGER ASSET MANAGEMENT Sexual Orientation Not on file Occupation Industry Job Start Date Job End Date disabled Not on file Not on file Not on file COVID-19 Exposure Response Date Recorded In the last 10 days, have yo u been in contact with someone who was confirmed or suspected to have Coronavirus/COVID-19? No / Unsure 10/11/2022 9:23 AM MANAGER ASSET MANAGEMENT documented as of this encounter Miscellaneous Notes [...] Dept 08/29/22 Office Visit Ronald Shaffer APRN, COMMERCIAL LOAN UNDERWRITER [facility] Office Visit Jany Hernandez, SUSI [facility] [place] 06/23/22 Office Visit Marco Woods MD [facility] [place] 05/19/22 Office Visit Marco Woods MD [facility] [place] 01/10/22 Office Visit [facility] MD [facility] Showing recent visits within past 365 days and meeting all other requirements Future Appointments Date Type Provider Dept 10/25/22 Appointment Marco Woods MD [facility] [place] Showing future appointments within next 90 days and meeting all other requirements GER ASSET MANAGEMENT documented in this encounter Plan of Treatment Upcoming Encounters Date Type Department Care Team (Late st Contact Info) Description 06/12/2025 11:00 AM CDT Office Visit [facility] - Family Medicine - [place] #2 [facility] [place] [address] Marco Woods MD #2 [facility] [address] [place] [address] 07/01/2025 11:00 AM CDT Office Visit [facility] - [facility] [place] #2 [place] [address] Analia Meza MD #[address] [phone] 07/03/2025 5:30 PM CD[facility] [address] [place] [phone] Analia Meza MD #[address] [phone] Discharge Disposition: Discharged to home or Selfcare 07/17/2025 10:30 AM CDT [facility] [place] #2 [place] [address] Michelle Mendes APRN, COMMERCIAL LOAN UNDERWRITER #2 [facility] [address] [place] [address] 08/11/2025 9:45 AM CDT Office Visit [facility] - Endocrinology - [place] #2 [place] [phone] Kirsten Niño MD #[address] [place] [address] documented as of this encounter Visit Diagnoses Not on filedocumented in this encounter Additional Health Concerns Infection Onset Date Last Indicated Resolved Time COVID - 19 11/20/2022 11/20/2022 11/24/2022 8:51 AM MANAGER ASSET MANAGEMENT COVID - 19 12/31/2022 12/31/2022 01/10/2023 12:1 8 AM CDT COVID - 19 Confirmed 12/31/2022 12/31/2022 023 12:17 AM CDT COVID - 19 06/01/2023 06/01/2023 06/01/2023 8:16 AM CDT COVID - 19 11/01/2023 11/01/2023 11/11/2023 12:1 6 AM MANAGER ASSET MANAGEMENT COVID - 19 06/25/2024 06/25/2024 06/25/2024 6:36 PM CDT Assessment Noted Time PHQ-9 Depression Total Score: 0 11/22/19 10:00 AM MANAGER ASSET MANAGEMENT documented as of this encounter Care Teams Hydraulic Barker Operator Relationship Specialty Start Date End Date Marco Woods MD #2 [facility] [address] [place] [address] PCP - General Family Medicine 11/22/17 Kirsten Niño MD #2 [facility] [address] [place] [address] Consulting Physician Endocrinology 07/17/22 Chin Burrows MD #2 [facility] [address] [place] [address] Consulting Physician General Surgery 11/22/22 Kelsea Root RN [place] Return Checker 06/15/23 08/26/23 Michelle Mendes APRN, COMMERCIAL LOAN UNDERWRITER #2 [facility] [address] [place] [address] Nurse Practitioner Advanced Practice Nurse 08/14/22 Chantelle Nix APRN, COMMERCIAL LOAN UNDERWRITER #[address] [place] [address] Nurse Practitioner Advanced Practice Nurse 02/19/24 Analia Meza MD #2 [facility] [place] [address] [address] Consulting Physician Otolaryngology 05/11/25 documented as of this encounter
--- OUTSIDE RECORDS SUMMARY | 2025-05-19 10:25 | XMS_ITS | Encounter Summary ---
Author Organization [facility] Address [address] [place] [address] Phone Care Team Providers Care Outside Plant Engineer Name Role Phone Marco Woods MD Primary Care Provider Kirsten Niño MD Unavailable Chin Burrows MD Unavailable Kelsea Root RN Unavailable Unavailable Michelle Mendes APRN, AQUACULTURE AND FISHERIES PROFESSOR Unavailable Chantelle Nix APRN, AQUACULTURE AND FISHERIES PROFESSOR Unavailable Analia Meza MD Unavailable [phone] Encounter Details Date Type Department Care Team (Late st Contact Info) Description 11/07/[address] [facility] [address] [place] [address] Chin Burrows MD #2 [facility] [address] [place] [address] Pre-op testing (Primary Dx) Social History Tobacco Use Types Packs/Day Years Used Date Smoking Tobacco: Never Smokeless Tobacco: Never Alcohol Use Standard Drinks/Week Comments Not Currently 0 (1 standard drink = 0.6 oz pur e alcohol) Sexually Active Control Partners Comments Not Currently Comments No Sex and Gender Information Value Date Recorded Sex Assigned at Female 11/22/2023 11:58 AM SILVICULTURE TEACHER Legal Sex Female 11:34 PM CDT Gender Identity Female 11/22/2023 11:58 AM SILVICULTURE TEACHER Sexual Orientation Not on file Occupation Industry Job Start Date Job End Date disabled Not on file Not on file Not on file COVID-19 Exposure Response Date Recorded In the last 10 days, have yo u been in contact with someone who was confirmed or suspected to have Coronavirus/COVID-19? No / Unsure 11/07/2022 1:33 PM SILVICULTURE TEACHER documented as of this encounter Plan of Treatment Upcoming Encounters Date Type Department Care Team (Late st Contact Info) Description 06/12/2025 11:00 AM CDT [facility] Visit [facility] - [place] #2 [place] [address] Marco Woods MD #[address] [address] 07/01/2025 11:00 AM CDT Office Visit [facility] Medical [facility] - Ear, Nose & Throat - [place] #2 [place] [address] Analia Meza MD #[address] [phone] 07/03/2025 5:30 PM CDT [facility] [address] [place] [address] Analia Meza MD #[address] [address] Discharge Disposition: Discharged to home or Selfcare 07/17/2025 10:30 AM CDT [facility] - Pulmonology & Sleep Medicine - [place] #2 [place] [address] Michelle Mendes APRN, AQUACULTURE AND FISHERIES PROFESSOR #2 [facility] [address] [place] [address] 08/11/2025 9:45 AM CDT Office Visit [facility] - [place] #[address] [place] [address] Kirsten Niño MD #2 [facility] [address] [place] [address] documented as of this encounter Results * SARS-COV-2 BY MOLECULAR (11/13/2022 6:21 AM SILVICULTURE TEACHER) SARSCOV2 NOT DETECTED (Referenc e Range for this test is Not Detected) [facility] LE[facility] ID NOW 11/13/2022 7:17 AM SILVICULTURE TEACHER [facility] Comment:This test was perfor med by a MOLECULAR, NON-PCR method Other NASOPHARYNGEAL STRUCTURE / Unknown Non-Phlebotomy Collection / Unknown 11/13/2022 6:21 AM SILVICULTURE TEACHER 11/13/2022 7:02 AM SILVICULTURE TEACHER Narrative [facility] - 11/13/2022 7:17 AM SILVICULTURE TEACHER This test has been authorized by the [...] information for Clinicians can be found at: https://www.fda.gov/media/175368/download Additional information for Patients can be found at: https://www.fda.gov/media/340765/download Chin Burrows MD MICROBIOLOGY - GENERA L ORDERABLES Final Result [facility] #1 [facility] [place] [address] documented in this encounter Visit Diagnoses Diagnosis Pre-op testing- Primary Preoperative examination, unspecified documented in this encounter Additional Health Concerns Infection Onset Date Last Indicated Resolved Time COVID - 19 11/20/2022 11/20/2022 11/24/2022 8:51 AM SILVICULTURE TEACHER COVID - 19 12/31/2022 12/31/2022 01/10/2023 12:1 8 AM CDT COVID - 19 Confirmed 12/31/2022 12/31/2022 023 12:17 AM CDT COVID - 19 06/01/2023 06/01/2023 06/01/2023 8:16 AM CDT COVID - 19 11/01/2023 11/01/2023 11/11/2023 12:1 6 AM SILVICULTURE TEACHER COVID - 19 06/25/2024 06/25/2024 06/25/2024 6:36 PM CDT Assessment Noted Time PHQ-9 Depression Total Score: 0 11/22/19 18 10:00 AM SILVICULTURE TEACHER documented as of this encounter Care Teams Outside Plant Engineer Relationship Specialty Start Date End Date Marco Woods MD #2 [facility] [address] [place] [address] PCP - General Family Medicine 11/22/17 Kirsten Niño MD #2 [facility] [address] [place] [address] Consulting Physician Endocrinology 07/17/22 Chin Burrows MD #2 [facility] [address] [place] [address] Consulting Physician General Surgery 11/22/22 Kelsea Root, JUWAN [place] Embedded Software Engineer 06/15/23 08/26/23 Michelle Mendes APRN, AQUACULTURE AND FISHERIES PROFESSOR #2 [facility] [address] [place] [address] Nurse Practitioner Advanced Practice Nurse 08/14/22 Chantelle Nix APRN, DREW [address] [place] [address] Nurse Practitioner Advanced Practice Nurse 02/19/24 Analia Meza MD [address] [facility] [address] [phone] Consulting Physician Otolaryngology 05/11/25 documented as of this encounter
--- OUTSIDE RECORDS SUMMARY | 2025-05-19 10:26 | XMS_ITS | Encounter Summary ---
Author Organization [facility] Address [address] [place] [address] Phone Care Team Providers Care Preschool Substitute Teacher Name Role Phone Marco Woods MD Primary Care Provider [phone] Kirsten Niño MD Unavailable Chin Burrows MD Unavailable Michelle Mendes APRN, TRAVELING REPAIR ACCOUNTANT Unavailable Chantelle Nix APRN, TRAVELING REPAIR ACCOUNTANT Unavailable Analia Meza MD Unavailable [phone] Reason for Visit * Reason Comments Medication Refill Encounter Details Date Type Department Care Team (Late st Contact Info) Description 03/11/2024 Refill [facility] Medical Group - Family Medicine - [place] [address] [place] [address] Marco Woods MD #2 [facility] [place] [address] Medication Refill Social History Tobacco Use Types Packs/Day Years Used Date Smoking Tobacco: Never Smokeless Tobacco: Never Alcohol Use Standard Drinks/Week Comments Not Currently 0 (1 standard drink = 0.6 oz pur e alcohol) [facility] Utilities Answer Date Recorded In the past 12 months has [employer] electric, gas, oil, or water company threatened [...] declined 11/28/2023 How often do you attend sikhism or adventism serv ices? Patient declined 11/28/2023 Do you [...] Total Score - Questions 1-9 18 10/24 [facility] - Occupational Stress Questionnaire Answer Date [...] Assigned at Female 11/22/2023 11:58 AM CUPOLA PATCHER HELPER Legal Sex Female 11:34 PM CDT Gender Identity Female 11/22/2023 11:58 AM CUPOLA PATCHER HELPER Sexual Orientation Not on file Occupation [...] Dept 02/21/24 Office Visit [facility] 02/12/24 Office Visit Rebecca Liu FISHING MANAGER, [facility] [place] 12/05/23 Office [facility] [place] 11/20/23 Office Visit Ronald Shaffer APRN, TRAVELING REPAIR ACCOUNTANT [facility] 10/10/23 Office Visit Rebecca Liu APRN, [facility] 08/24/23 Office Visit Ranj[facility] [place] 08/02/23 Office Visit Marco Woods MD [facility] 05/01/23 Office Visit [facility] 04/18/23 Office Visit [facility] 04/03/23 Office Visit [facility] Showing recent visits within past 365 days and meeting all other requirements Future Appointments Date Type Provider Dept 03/12/24 Appointment Marco Woods MD [facility] Showing future appointments within next 90 days and meeting all other requirements documented in this encounter Plan of Treatment Upcoming Encounters Date Type Department Care Team (Late st Contact Info) Description 06/12/2025 11:00 AM CDT Office Visit [facility] - Family Medicine - [place] #2 [place] [address] Marco Woods MD #[address] [address] 07/01/2025 11:00 AM CDT Office Visit [facility] - Ear, Nose & Throat - [place] #2 [place] [address] Analia Meza MD #[address] [address] 07/03/2025 5:30 PM CDT [facility] [address] [place] [phone] Analia Meza MD #[address] [phone] Discharge Disposition: Discharged to home or Selfcare 07/17/2025 10:30 AM CDT Office Visit [facility] Medical [facility] - Pulmonology & Sleep Medicine [facility] #2 [place] [address] Michelle Mendes APRN, TRAVELING REPAIR ACCOUNTANT #2 [facility] [address] [place] [address] 08/11/2025 9:45 AM CDT Office Visit [facility] Medical [facility] - Endocrinology - [place] #2 [place] [address] Kirsten Niño MD #[address] [phone] documented as of this encounter Visit Diagnoses Not on filedocumented in this encounter Additional Health Concerns Infection Onset Date Last Indicated Resolved Time COVID - 19 06/25/2024 06/25/2024 06/25/2024 6:36 PM CDT Assessment Noted Time PHQ-9 Depression Total Score: 18 024 10:00 AM CUPOLA PATCHER HELPER documented as of this encounter Care Teams Preschool Substitute Teacher Relationship Specialty Start Date End Date Marco Woods MD #2 [facility] [address] [place] [address] PCP - General Family Medicine 11/22/17 Kirsten Niño MD #2 [facility] [address] [place] [address] Consulting Physician Endocrinology 07/17/22 Chin Burrows MD #[address] [phone] Consulting Physician General Surgery 11/22/22 Michelle Mendes APRN, TRAVELING REPAIR ACCOUNTANT #[address] [address] Nurse Practitioner Advanced Practice Nurse 08/14/22 Chantelle Nix APRN, TRAVELING REPAIR ACCOUNTANT #2 [place] [address] Nurse Practitioner Advanced Practice Nurse 02/19/24 Analia Meza MD #[address] [phone] Consulting Physician Otolaryngology 05/11/25 documented as of this encounter
--- OUTSIDE RECORDS SUMMARY | 2025-05-19 10:26 | XMS_ITS | Data Portability ---
Author Organization [facility] BRIEBijal Lizama Address [address] [place] [address] [place] [address] Assessment Encounter Date Assessment Date Assessment LastModified by Organization Details LastModified Time 04/01/2015 04/01/2015 URI sxs appear to be viral--pt is to let us know if sxs worsen. [email or web address] Not available 04/01/2015 12:45:52 02/26/2017 02/26/2017 Stop symbicort. Pt sees an ENT and a gamemaster. [email or web address] Not available 02/26/2017 12:21:36 Plan of Treatment Reminders Order Date Submit Date Provider Last Modified By Organization Details Last Modified Time Details Appointments None recorded. Lab None recorded. Referral None recorded. Procedures None recorded. Surgeries None recorded. Imaging None recorded. Medication Orders ProAir HFA 90 mcg/actuat ion aerosol inhaler 2016 017 INTERFACE [facility] #00887, [address], [place], [id number], 7 12:20:23 cyclobenza ilia 10 mg tablet 2015 016 [email or web address] m7 [facility], [address], [place], [id number], 7 12:01:57 Voltaren 1 % topical gel 2015 016 [id number], [address], [place], [id number], 6 15:58:06 Qvar 40 mcg/actuat ion Metered Aerosol oral inhaler 2014 015 pcunningha m7 [facility], [address], [place], [id number], 7 12:02:24 montelukas t 10 mg tablet 2014 015 [email or web address] [facility], [address], [place], [id number], 5 17:54:35 Flovent HFA 220 mcg/actuat ion aerosol inhaler 2014 015 [email or web address] [facility], [address], [place], [id number], 7 10:05:57 Patient TargetsNo targets recorded. Patient Instructions Encounter Date Encounter Id Patient Instructions Last Modified By Organization Details Last Modified Time 04/01/2015 [id number] When You Want to Lose Weight: Care Instructions [email or web address] Not available 04/07/2015 16:40:13 hypothyroidism: care instructions [email or web address] Not available 04/07/2015 16:40:13 10/01/2015 [id number] controlling your asthma: care instructions [email or web address] Not available 10/04/2015 09:15:49 learning about asthma [email or web address] Not available 10/04/2015 09:15:49 allergies: care instructions [email or web address] Not available 10/01/2015 17:54:35 managing your allergies: care instructions [email or web address] Not available 10/01/2015 17:54:35 When You Want to Lose Weight: Care Instructions [email or web address] Not available 10/01/2015 17:54:35 hypothyroidism: care instructions Not available 10/01/2015 17:54:35 shortness of breath: care instructions [email or web address] Not available 10/01/2015 17:54:35 03/31/2016 [id number] When You Want to Lose Weight: Care Instructions Not available 03/31/2016 16:03:45 hypothyroidism: care instructions Not available 03/31/2016 16:03:45 02/26/2017 [id number] controlling your asthma: care instructions Not available [...] resul t No observ ation record ed. [email or web address] [facility] [address] [place], [address], 02/05/2015 13:56:27 03/12/20 15 imagi ng/di agnos tic resul t No observ ation record ed. [email or web address] Not Available 2014 15:37:15 01/10/20 16 01/10/2016 imagi ng/di agnos tic resul t No observ ation record ed. [email or web address] [facility] [address] [place], [address], 01/11/2016 00:46:44 02/01/20 17 01/31/2017 CT, abdom en + pelvi s, w/ contr ast No observ ation record ed. Not Available 2016 09:39:13 02/14/20 17 02/13/2017 MAMMO , diagn ostic , bilat eral, w/ CAD No observ ation record ed. [facility] [address] [place], [address], 02/14/2017 15:32:05 Result Notes None recorded. Problems Name Problem SNOMED Code Status Onset Date Resolution Date Notes Provider Name and Address Organization Details Recorded Time Arthritis 7280507 Active Anmol Stafford MD Attn: Lilianin g,[address] [facility], [place], [address], [facility] 5 16:29:02 Anemia 234705307 Active Anmol Stafford MD Attn: Accountin g,[address] [facility], [place], [address], [place] - [facility] 5 23:14:44 Morbid obesity 309159748 Active Anmol Stafford MD Attn: Accountin g,[address] [facility], [place], [address], [place] [facility] 6 15:57:59 Hypothyroidism 45357358 Active Anmol Stafford MD Attn: Accountin g,[address] [facility], [place], [address], [place] [facility] 6 15:57:59 Allergic rhinitis 23278330 Active Anmol Stafford MD Attn: Accountin g,[address] [facility], [place], [address], [place] [facility] 5 17:54:34 Asthma 935247645 Active Anmol Stafford MD Attn: Accountin g,[address] [facility], [place], [address], [place] [facility] 5 17:54:34 Dyspnea 978856523 Active Anmol Stafford MD Attn: Accountin g,[address] [facility], [place], [address], [place] [facility] 5 13:11:38 Problem Notes None recorded. Medical Equipment None Reported. Allergies Allergen ID Allergen Name Allergen Category Reaction Reaction Severity Criticality Documentation Date Start Date Code Code System Note Provider Name and Address Organization Details Recorded Time 9364 codeine medicatio n Not available Not available Not available 10/06/2014 2670 RxNorm BEKAH [place], [place] - [facility] 4 12:03:29 9365 Non-stero idal anti-infl ammatory agent (substanc e) medicatio n Not available Not available Not available 10/06/2014 74753 5008 SNOMED BEKAH [place], [place] - [facility] 4 12:03:29 Medications Name [...] Available Not Available Not Avai lable Fluvirin 0240-1650 45 mcg (15 mcg x 3)/0.5 mL intramuscu lar suspension active Not Available Not Available N ot Available Linzess 72 mcg capsule TAKE ONE CAPSULE BY MOUTH EVERY OTHER DAY active Not Available Not Available No t Available Fluvirin 9072-2825 45 mcg (15 mcg x 3)/0.5 mL [...] Heart rate Respiratory rate Body temperature Systolic And Diastolic Provider Name and Address Organization Details Last Updated DateTime 7 154.94 cm 812231. 61 g 44.2 kg/m2 95 % 95 % 72 /min 18 /min 98.2 [degF] 128/84 mm[Hg] Ana M gayle [facility] 7 12:00:46 Date Recorded Respiratory rate Oxygen saturation Oxygen saturation in Arterial blood by Pulse oximetry Body weight Body temperature Heart rate Body mass index (BMI) Body height Systolic And Diastolic Provider Name and Address Organization Details Last Updated DateTime 5 24 /min 97 % 97 % 049990. 444816 g 98.9 [degF] 84 /min 42.7 kg/m2 154.94 cm 102/60 mm[Hg] Lesa Rojo RN [facility] 5 10:21:25 Date Recorded Respiratory rate Body height Body mass index (BMI) Heart rate Body weight Systolic And Diastolic Provider Name and Address Organization Details Last Updated DateTime 6 16 /min 154.94 cm 43.6 kg/m2 82 /min 351007. 712880 g 152/82 mm[Hg] Ana M gayle [facility] 6 15:30:51 Date Recorded Respiratory rate Body weight Oxygen saturation Oxygen saturation in Arterial blood by Pulse oximetry Body height Heart rate Body mass index (BMI) Systolic And Diastolic Provider Name and Address Organization Details Last Updated DateTime 5 24 /min 303426. 146241 g 95 % 95 % 154.94 cm 103 /min 43.7 kg/m2 144/82 mm[Hg] Azalea Mcconnell MA [facility] 5 10:46:58 Date Recorded Respiratory rate Body weight Oxygen saturation Oxygen saturation in Arterial blood by Pulse oximetry Body height Heart rate Body mass index (BMI) Systolic And Diastolic Provider Name and Address Organization Details Last Updated DateTime 5 24 /min 762321. 853565 g 95 % 95 % 154.94 cm 87 /min 43.6 kg/m2 114/76 mm[Hg] Azalea Mcconnell MA [facility] 5 15:29:26 Social History None recorded. Functional Status None recorded. Mental Status None recorded. Family History Nothing Reported. Medical History Condition Response Thyroid Problems Y Asthma Y Gynecological HistoryNo gynecological history recorded. Obstetrics History GPAL:G 0 P 0 0 0 0 Immunizations Vaccine Type Date Status Note Provider Nam e and Address Organization Details Recorded Time Hep A-Hep B 5 completed Not [facility]2019 02:32:57 tetanus toxoid, unspecified formulation 4 completed BEKAH Nicole [facility] 10/16/2017 17:59:15 pneumococcal, unspecified formulation 9 completed BEKAH Nicole [facility] 10/16/2017 17:59:31 Past Encounters Encounter ID Performer Location Encounter Start Date Encounter Closed Date Diagnosis/Indication Diagnosis SNOMED-CT Code Diagnosis ICD10 Code Diagnosis Note [id number] Anmol Stafford MD [facility] [address] [place] [address] 10/06/2014 11:37:33 10/06/2014 13:05:59 Dyspnea 292881537 [id number] Anmol Stafford MD [facility] [address] [place] [address] 11/04/2014 10:00:37 11/04/2014 13:09:05 Dyspnea 000740683 [id number] Anmol Stafford MD [place] [facility] [address] [place] [address] 03/04/2015 09:42:41 03/04/2015 15:14:58 Active or passive immunization 249208981 [id number] Anmol Stafford MD [place] [address] [place] [address] 04/01/2015 10:26:56 04/01/2015 13:40:36 Arthritis 5799235 Hypothyroidism 78744364 Morbid obesity 178594763 [id number] Anmol Stafford MD [place] [address] [place] [address] 10/01/2015 15:07:02 10/01/2015 17:58:34 Dyspnea 810562326 R06.00 Allergic rhinitis 587113 04 J30.9 Hypothyroidism 41855972 E03.9 Morbid obesity 052628373 E66.01 Asthma 719711018 J45.90 9 [id number] Anmol Stafford MD [place] [address] [place] [address] 03/31/2016 15:18:57 03/31/2016 16:41:34 Hypothyroidism 32291995 E03.9 Morbid obesity 434823823 E66.01 History of fall 47806642 9 Z91.81 [id number] Anmol Stafford MD [facility] [address] [place] [address] 02/26/2017 11:53:16 02/28/2017 09:40:12 Asthma 618872090 J45.909 Morbid obesity 064787214 E66.01 Hypothyroidism 64518595 E03.9 Health Concerns Section Related Observation LastModified by Organization Detai ls LastModified Time None Recorded Concern Status LastModified by Organization Details LastModified Time None Recorded Advance Directives Directive None Recorded Payers Insurance Date Sequence Insurance Name Policy Number Policy Elizabeth Covered Member ID Elizabeth Member ID Guarantor Name 03/08/2023 1 [place] Yudi Henderson [id number] Yudi Henderson 05/25/2023 [place] [facility] Yudi Henderson [id number] Yudi Henderson 03/08/2023 2 [place] WHEN MEDICARE OR MEDICARE REPLACEMENT PRIMARY) Yudi Henderson [id number] Yudi Henderson 05/28/2023 1 [facility] (MEDICARE REPLACEMENT/AD VANTAGE - HMO) [id number] Yudi Henderson [id number] Yudi Henderson 05/28/2023 2 [place] WHEN [place]ARE OR MEDICARE REPLACEMENT PRIMARY) Yudi Henderson [id number] Yudi Henderson OBGybabita Episode No OBEpisode recorded.
--- OUTSIDE RECORDS SUMMARY | 2025-05-19 10:26 | XMS_ITS | Encounter Summary ---
Author Organization [facility] Address [address] [place] [address] Phone Care Team Providers Care Hydraulic Design Engineer Name Role Phone Marco Woods MD Primary Care Provider Kirsten Niño MD Unavailable Chin Burrows MD Unavailable Michelle Mendes APRN, RIVER RAFTING GUIDE Unavailable Chantelle Nix APRN, RIVER RAFTING GUIDE Unavailable Analia Meza MD Unavailable [phone] Reason for Visit * Reason Comments Medication Refill Encounter Details Date Type Department Care Team (Late st Contact Info) Description 03/18/2024 Refill [facility] - Family Medicine - [place] [address] [place] [address] Marco Woods MD [address] [place] [address] Medication Refill Social History Tobacco Use Types Packs/Day Years Used Date Smoking Tobacco: Never Smokeless Tobacco: Never Alcohol Use Standard Drinks/Week Comments Not Currently 0 (1 standard drink = 0.6 oz pur e alcohol) [facility] Utilities Answer Date Recorded In the past 12 months has Hap[employer] electric, gas, oil, or water company threatened [...] declined 11/28/2023 How often do you attend methodist or jain serv ices? Patient declined 11/28/2023 Do you [...] Total Score - Questions 1-9 18 10/24 [facility] - Occupational Stress Questionnaire Answer [...] group home (including now)? Patient declined 11/28/2023 Education Answer Date Recorded What is the highest level of school you have completed or the highest degree you have received? 12th grade 04/03/2023 Sexually Active Control Partners Comments Not Currently Comments No Sex and Gender Information Value Date Recorded Sex Assigned at Female 11/22/2023 11:58 AM SENIOR CLINICAL RESEARCH SCIENTIST Legal Sex Female 11:34 PM CDT Gender Identity Female 11/22/2023 11:58 AM SENIOR CLINICAL RESEARCH SCIENTIST Sexual Orientation Not on file Occupation Industry [...] Dept 03/12/24 [facility] Office Visit Amor Pitt [facility] [place] 02/12/24 Office Visit Rebecca Liu, LEASE EXAMINER, RIVER RAFTING GUIDE [facility] [place] 12/05/23 [facility] [place] 11/20/23 Office Visit Ronald Shaffer, LEASE EXAMINER, RIVER RAFTING GUIDE [facility] [place]av 10/10/23 Office Visit Rebecca Liu LEASE EXAMINER, [facility] [place] 08/24/23 Office Visit Ranjit Linder MD [facility] [place] 08/02/23 Office Visit [facility] [place] 05/01/23 Office Visit [facility] 04/18/23 [facility] Visit [facility] Showing recent visits within past 365 days and meeting all other requirements Future Appointments Date Type Provider Dept 04/09/24 Appointment [facility] Showing future appointments within next 90 days and meeting all other requirements * Telephone Encounter - Amada Orozco RN - 03/19/2024 9:39 AM CDT Images from the original note were not included. Dexlansoprazole Dispensed Days Supply Quantity Provider Pharmacy DEXLANSOPRAZOLE 60 MG CPDR 02/21/2024 28 28 Capsule Maria Antonia Galeana MD [facility]... DEXLANSOPRAZOLE 60 MG CPDR 01/29/2024 28 28 Capsule Maria Antonia Galeana MD [facility] - [facility]. documented in this encounter Plan of Treatment Upcoming Encounters Date Type Department Care Team (Late st Contact Info) Description 06/12/2025 11:00 AM CDT Office Visit [facility] - Family Medicine - [place] [address] [place] [address] Marco Woods MD [address] [address] 07/01/2025 11:00 AM CDT Office Visit [facility] - Ear, Nose & Throat - [place] [address] [place] [address] Analia Meza MD #2 [facility] [address] [address] 07/03/2025 5:30 PM CD[facility] [place] [address] Analia Meza MD #2 [facility] [address] [address] Discharge Disposition: Discharged to home or Selfcare 07/17/2025 10:30 AM CDT Office Visit [facility] - Pulmonology & Sleep Medicine - [place] [address] [place] [address] Michelle Mendes APRN, RIVER RAFTING GUIDE [address] [address] 08/11/2025 9:45 AM CDT [facility] - Endocrinology - [place] [address] [place] [address] Kirsten Niño MD #[address] [place] [address] documented as of this encounter Visit Diagnoses Not on filedocumented in this encounter Additional Health Concerns Infection Onset Date Last Indicated Resolved Time COVID - 19 06/25/2024 06/25/2024 06/25/2024 6:36 PM CDT Assessment Noted Time PHQ-9 Depression Total Score: 18 024 10:00 AM SENIOR CLINICAL RESEARCH SCIENTIST documented as of this encounter Care Teams Hydraulic Design Engineer Relationship Specialty Start Date End Date Marco Woods MD #2 [facility] [address] [place] [address] PCP - General Family Medicine 11/22/17 Kirsten Niño MD #2 [facility] [address] [place] [phone] Consulting Physician Endocrinology 07/17/22 Chin Burrows MD #[address] [phone] Consulting Physician General Surgery 11/22/22 Michelle Mendes APRN, RIVER RAFTING GUIDE #2 [facility] [address] [place] [address] Nurse Practitioner Advanced Practice Nurse 08/14/22 Chantelle Nix APRN, RIVER RAFTING GUIDE [address] [place] [address] Nurse Practitioner Advanced Practice Nurse 02/19/24 Analia Meza MD #[address] [phone] Consulting Physician Otolaryngology 05/11/25 documented as of this encounter
--- OUTSIDE RECORDS SUMMARY | 2025-05-19 10:26 | XMS_ITS | Encounter Summary ---
Author Organization [facility] Address [address] [place] [address] Phone Care Team Providers Care Stock Tracer Name Role Phone Marco Woods MD Primary Care Provider Kirsten Niño MD Unavailable Chin Burrows MD Unavailable Kelsea Root RN Unavailable Unavailable Michelle Mendes APRN, BELT SEWER Unavailable Chantelle Nix APRN, BELT SEWER Unavailable Analia Meza MD Unavailable [phone] Reason for Visit * Reason Comments Medication Refill Encounter Details Date Type Department Care Team (Late st Contact Info) Description 02/11/2023 Refill [facility] [address] [place] [phone] Marco Woods MD [address] [address] Medication Refill Social History Tobacco Use Types Packs/Day Years Used Date Smoking Tobacco: Never Smokeless Tobacco: Never Alcohol Use Standard Drinks/Week Comments Not Currently 0 (1 standard drink = 0.6 oz pur e alcohol) Sexually Active Control Partners Comments Not Currently Comments No Sex and Gender Information Value Date Recorded Sex Assigned at Female 11/22/2023 11:58 AM EMISSION TECHNICIAN Legal Sex Female 11:34 PM CDT Gender Identity Female 11/22/2023 11:58 AM EMISSION TECHNICIAN Sexual Orientation Not on file Occupation [...] [place] 01/23/23 Office Visit Rebecca Liu APRN, BELT SEWER [facility] [place] 12/05/22 Office Visit Marco Woods MD [facility] [place] 10/25/22 Office Visit Marco Woods MD [facility] [place] 08/29/22 Office Visit Ronald Shaffer APRN, BELT SEWER [facility] [place] 07/12/22 Office Visit Jany Hernandez PAC [facility] [place] 06/23/22 Office Visit Marco Woods MD [facility] [place] 05/19/22 Office Visit Marco Woods MD [facility] [place] Showing recent visits within past 365 days and meeting all other requirements Future Appointments Date Type Provider Dept 04/26/23 Appointment Marco Woods MD [facility] [place] Showing future appointments within next 90 days and meeting all other requirements documented in this encounter Plan of Treatment Upcoming Encounters Date Type Department Care Team (Late st Contact Info) Description 06/12/2025 11:00 AM CDT Office Visit [facility] - Family Medicine - [place] [address] [place] [address] Marco Woods MD #2 [facility] [address] [place] [address] 07/01/2025 11:00 AM CDT Office Visit [facility] - Ear, Nose & Throat - [place] [address] [place] [address] Analia Meza MD #[address] [phone] 07/03/2025 5:30 PM CDT [facility] [place] [phone] Analia Meza MD #[address] [phone] Discharge Disposition: Discharged to home or Selfcare 07/17/2025 10:30 AM CDT Office Visit [facility] - Pulmonology & Sleep Medicine - [place] [address] [place] [address] Michelle Mendes APRN, BELT SEWER #2 [facility] [address] [place] [address] 08/11/2025 9:45 AM CDT Office Visit [facility] - Endocrinology - [place] [address] [place] [phone] Kirsten Niño MD [address] [place] [address] documented as of this encounter Visit Diagnoses Not on filedocumented in this encounter Additional Health Concerns Infection Onset Date Last Indicated Resolved Time COVID - 19 06/01/2023 06/01/2023 06/01/2023 8:16 AM CDT COVID - 11/01/2023 11/01/2023 11/11/2023 12:1 6 AM EMISSION TECHNICIAN COVID - 06/25/2024 06/25/2024 06/25/2024 6:36 PM CDT Assessment Noted Time PHQ-9 Depression Total Score: 0 11/22/19 10:00 AM EMISSION TECHNICIAN documented as of this encounter Care Teams Stock Tracer Relationship Specialty Start Date End Date Marco Woods MD #2 [facility] [address] [place] [address] PCP - General Family Medicine 11/22/17 Kirsten Niño MD #[address] [address] Consulting Physician Endocrinology 07/17/22 Chin Burrows MD #[address] [address] Consulting Physician General Surgery 11/22/22 Kelsea Root RN [place] [employer] 06/15/23 08/26/23 Michelle Mendes APRN, BELT SEWER #2 [facility] [address] [place] [address] Nurse Practitioner Advanced Practice Nurse 08/14/22 Chantelle Nix APRN, BELT SEWER #2 [place] [address] Nurse Practitioner Advanced Practice Nurse 02/19/24 Analia Meza MD [address] [facility] [address] [address] Consulting Physician Otolaryngology 05/11/25 documented as of this encounter
--- OUTSIDE RECORDS SUMMARY | 2025-05-19 10:26 | XMS_ITS | Encounter Summary ---
Author Organization [facility] Address [address] [place] [address] Phone Care Team Providers Care Baked Goods Stock Clerk Name Role Phone Marco Woods MD Primary Care Provider Kirsten Niño MD Unavailable Chin Burrows MD Unavailable Michelle Mendes APRN, UNIVERSITY RELATIONS DIRECTOR Unavailable Chantelle Nix APRN, UNIVERSITY RELATIONS DIRECTOR Unavailable Analia Meza MD Unavailable [phone] Reason for Visit * Reason Comments Medication Refill Encounter Details Date Type Department Care Team (Late st Contact Info) Description 12/23/2024 [facility]ill [facility] - Gastroenterology - [place] #2 [place] [address] Chantelle Nix APRN, UNIVERSITY RELATIONS DIRECTOR #2 [place] [address] Medication Refill Social History Tobacco Use Types Packs/Day Years Used Date Smoking Tobacco: Never Smokeless Tobacco: Never Alcohol Use Standard Drinks/Week Comments Not Currently 0 (1 standard drink = 0.6 oz pur e alcohol) [facility] Utilities Answer Date Recorded In the past 12 months has [employer], gas, oil, or water [employer] threatened to shut off services in your home? Patient unable to answer 06/25/2024 Social Connection and Isolation Panel Answer Date Recorded In a typical week, how many times do you talk on the phone with family, friends, or neighbors? Patient declined 06/25/2024 How often do you get togethe r with friends or relatives? Patient declined 06/25/2024 How often do you attend religion or christianity serv ices? Patient declined 06/25/2024 [...] Score - Questions 1-9 18 10/24 [facility] - Occupational Stress Questionnaire Answer Date [...] a chcf (including now)? Patient declined 11/28/2023 Housing Stability [...] any time in the past 12 m [facility], were you homeless or living in a chcf (including now)? Patient unable to answer 06/25/2024 Education Answer Date Recorded What is the highest level of school you have completed or the highest degree you have received? 12th grade 04/03/2023 Sexually Active Control Partners Comments Not Currently Comments No Sex and Gender Information Value Date Recorded Sex Assigned at Female 11/22/2023 11:58 AM DOFFER Legal Sex Female 11:34 PM CDT Gender Identity Female 11/22/2023 11:58 AM DOFFER Sexual Orientation Not on file Occupation Industry Job Start Date Job End Date disabled Not on file Not on file Not on file documented as of this encounter Miscellaneous Notes * Telephone Encounter - Denise Honeycutt RN - 12/24/2024 8:23 AM DOFFER Medication refilled and signed per [facility] chronic medication standing order for pediatric and adult patients. ER documented in this encounter Plan of Treatment Upcoming Encounters Date Type Department Care Team (Late st Contact Info) Description 06/12/2025 11:00 AM CDT Office Visit [facility] - Family Medicine - [place] #2 [place] [address] Marco Woods MD #2 [facility] [address] [place] [address] 07/01/2025 11:00 AM CDT Office Visit [facility] - Ear, Nose & Throat - [place] #2 [place] [address] Analia Meza MD #2 [facility] [address] [place] [address] 07/03/2025 5:30 PM CD[facility] [address] [place] [address] Analia Meza MD #[address] [address] Discharge Disposition: Discharged to home or Selfcare 07/17/2025 10:30 AM CDT Office Visit [facility] - Pulmonology & Sleep Medicine - [place] #2 [place] [address] Michelle Mendes APRN, DREW #2 [facility] [address] [place] [address] 08/11/2025 9:45 AM CDT Office Visit [facility] - Endocrinology - [place] #2 [place] [address] Kirsten Niño MD #2 [facility] [address] [place] [address] documented as of this encounter Visit Diagnoses Diagnosis Chronic constipation Unspecified constipation documented in this encounter Additional Health Concerns Assessment Noted Time PHQ-9 Depression Total Score: 18 024 10:00 AM DOFFER documented as of this encounter Care Teams Baked Goods Stock Clerk Relationship Specialty Start Date End Date Marco Woods MD #2 [facility] [address] [place] [address] PCP - General Family Medicine 11/22/17 Kirsten Niño MD #[address] [address] Consulting Physician Endocrinology 07/17/22 Chin Burrows MD #[address] [address] Consulting Physician General Surgery 11/22/22 Michelle Mendes APRN, UNIVERSITY RELATIONS DIRECTOR #2 [facility] [address] [place] [address] Nurse Practitioner Advanced Practice Nurse 08/14/22 Chantelle Nix APRN, UNIVERSITY RELATIONS DIRECTOR #2 [place] [address] Nurse Practitioner Advanced Practice Nurse 02/19/24 Analia Meza MD #[address] [place] [address] Consulting Physician Otolaryngology 05/11/25 documented as of this encounter
--- OUTSIDE RECORDS SUMMARY | 2025-05-19 10:26 | XMS_ITS | Encounter Summary ---
Author Organization [facility] Address [address] [place] [address] Phone Care Team Providers Care Gaggerman Name Role Phone Marco Woods MD Primary Care Provider Kirsten Niño MD Unavailable Chin Burrows MD Unavailable Michelle Mendes APRN, FRONT COUNTER ATTENDANT Unavailable Chantelle Nix APRN, FRONT COUNTER ATTENDANT Unavailable Analia Meza MD Unavailable [phone] Reason for Visit * Reason Comments Medication Refill Encounter Details Date Type Department Care Team (Late st Contact Info) Description 04/04/2024 Refill [facility] - Family Medicine - [place] [address] [place] [address] Marco Woods MD [address] [address] Medication Refill Social History Tobacco Use Types Packs/Day Years Used Date Smoking Tobacco: Never Smokeless Tobacco: Never Alcohol Use Standard Drinks/Week Comments Not Currently 0 (1 standard drink = 0.6 oz pur e alcohol) [facility] Utilities Answer Date Recorded In the past 12 months has [employer], gas, oil, or water company threatened [...] declined 11/28/2023 How often do you attend mandaen or baptist serv ices? Patient declined 11/28/2023 Do you belong to any clubs o r organizations such as mandaen groups, unions, fraternal or athletic groups, or [...] Score - Questions 1-9 18 10/24 [facility] - Occupational Stress Questionnaire Answer Date [...] nursing home (including now)? Patient declined 11/28/2023 Education Answer Date Recorded What is the highest level of school you have completed or the highest degree you have received? 12th grade 04/03/2023 Sexually Active Control Partners Comments Not Currently Comments No Sex and Gender Information Value Date Recorded Sex Assigned at Female 11/22/2023 11:58 AM ZIGZAG TOPSTITCHER Legal Sex Female 11:34 PM CDT Gender Identity Female 11/22/2023 11:58 AM ZIGZAG TOPSTITCHER Sexual Orientation Not on file Occupation Industry [...] Dept 03/27/24 Office Visit Mirtha Steiner APRN, FRONT COUNTER ATTENDANT [facility] [place] 03/12/24 Office Visit [facility] [place] 02/21/24 Office Visit Amor Pitt [facility] [place] 02/12/24 Office Visit Rebecca Liu, MAT SEWER, FRONT COUNTER ATTENDANT [facility] [place] 12/05/23 Office Visit [facility] [place] 11/20/23 Office Visit Ronald Shaffer MAT SEWER, FRONT COUNTER ATTENDANT [facility] [place] 10/10/23 Office Visit Rebecca Liu MAT SEWER, FRONT COUNTER ATTENDANT [facility] [place] 08/24/23 Office Visit Ranjit Linder [facility] 08/02/23 Office Visit Marco Woods MD [facility] [place] 05/01/23 Office Visit [facility] Showing recent visits within past 365 days and meeting all other requirements Future Appointments Date Type Provider Dept 04/09/24 Appointment Marco Woods MD [facility] Showing future appointments within next 90 days and meeting all other requirements documented in this encounter Plan of Treatment Upcoming Encounters Date Type Department Care Team (Late st Contact Info) Description 06/12/2025 11:00 AM CDT Office Visit [facility] Medical [facility] - Family Medicine - [place] #2 [place] [address] Marco Woods MD #[address] [address] 07/01/2025 11:00 AM CDT Office Visit [facility] Medical [facility] - Ear, Nose & Throat - [place] #2 [place] [address] Analia Meza MD #[address] [address] 07/03/2025 5:30 PM CDT [facility] [address] [place] [address] Analia Meza MD #[address] [place] [address] Discharge Disposition: Discharged to home or Selfcare 07/17/2025 10:30 AM CDT [facility] #2 [place] [address] Michelle Mendes, MAT SEWER, FRONT COUNTER ATTENDANT #2 [facility] [address] [place] [address] 08/11/2025 9:45 AM CDT Office Visit [facility] - Endocrinology - [place] #2 [place] [address] Kirsten Niño MD #[address] [address] documented as of this encounter Visit Diagnoses Not on filedocumented in this encounter Additional Health Concerns Infection Onset Date Last Indicated Resolved Time COVID - 19 06/25/2024 06/25/2024 06/25/2024 6:36 PM CDT Assessment Noted Time PHQ-9 Depression Total Score: 18 024 10:00 AM ZIGZAG TOPSTITCHER documented as of this encounter Care Teams Gaggerman Relationship Specialty Start Date End Date Marco Woods MD #[address] [address] PCP - General Family Medicine 11/22/17 Kirsten Niño MD #[address] [address] Consulting Physician Endocrinology 07/17/22 Chin Burrows MD #2 [facility] [address] [place] [address] Consulting Physician General Surgery 11/22/22 Michelle Mendes APRN, FRONT COUNTER ATTENDANT #2 [facility] [address] [place] [address] Nurse Practitioner Advanced Practice Nurse 08/14/22 Chantelle Nix APRN, FRONT COUNTER ATTENDANT #2 [place] [address] Nurse Practitioner Advanced Practice Nurse 02/19/24 Analia Meza MD #2 [facility] [address] [address] Consulting Physician Otolaryngology 05/11/25 documented as of this encounter
--- OUTSIDE RECORDS SUMMARY | 2025-05-19 10:26 | XMS_ITS | Encounter Summary ---
Author Organization [facility] Address [address] [place] [address] Phone Care Team Providers Care Churn Operator Name Role Phone Marco Woods MD Primary Care Provider Kirsten Niño MD Unavailable Chin Burrows MD Unavailable Michelle Mendes APRN, SCIENTIFIC ADVISOR Unavailable Chantelle Nix APRN, SCIENTIFIC ADVISOR Unavailable Analia Meza MD Unavailable [phone] Reason for Visit * Reason Comments Medication Refill Encounter Details Date Type Department Care Team (Late st Contact Info) Description 07/07/2024 Refill [facility] - Gastroenterology - [place] #2 [place] [address] Chantelle Nix APRN, SCIENTIFIC ADVISOR #2 [place] [address] Medication Refill Social History Tobacco Use Types Packs/Day Years Used Date Smoking Tobacco: Never Smokeless Tobacco: Never Alcohol Use Standard Drinks/Week Comments Not Currently 0 (1 standard drink = 0.6 oz pur e alcohol) [facility] Utilities Answer Date Recorded In the past 12 months has [email or web address], gas, oil, or water company threatened to [...] declined 06/25/2024 How often do you attend shinto or confucianist serv ices? Patient declined 06/25/2024 Do you belong to any clubs o r organizations such as shinto groups, unions, fraternal or athletic groups, or [...] Total Score - Questions 1-9 18 10/24 [facility] - Occupational Stress Questionnaire Answer Date [...] a correction (including now)? Patient declined 11/28/2023 Housing Stability [...] any time in the past 12 m [facility], were you homeless or living in a correction (including now)? Patient unable to answer 06/25/2024 Education Answer Date Recorded What is the highest level of school you have completed or the highest degree you have received? 12th grade 04/03/2023 Sexually Active Control Partners Comments Not Currently Comments No Sex and Gender Information Value Date Recorded Sex Assigned at Female 11/22/2023 11:58 AM PATROL CONDUCTOR Legal Sex Female 11:34 PM CDT Gender Identity Female 11/22/2023 11:58 AM PATROL CONDUCTOR Sexual Orientation Not on file Occupation Industry Job Start Date Job End Date disabled Not on file Not on file Not on file documented as of this encounter Miscellaneous Notes * Telephone Encounter - Denise Honeycutt RN - 07/08/2024 8:32 AM CDT Medication refilled and signed per [facility] chronic medication standing order for pediatric and adult patients. documented in this encounter Plan of Treatment Upcoming Encounters Date Type Department Care Team (Late st Contact Info) Description 06/12/2025 11:00 AM CDT Office Visit [facility] - Family Medicine - [place] #2 [place] [address] Marco Woods MD #2 [facility] [address] [place] [address] 07/01/2025 11:00 AM CDT Office Visit [facility] - Ear, Nose & Throat - [place] #2 [place] [address] Analia Meza MD #2 [facility] [address] [place] [address] 07/03/2025 5:30 PM CDT [facility] [address] [place] [address] Analia Meza MD #[address] [phone] Discharge Disposition: Discharged to home or Selfcare 07/17/2025 10:30 AM CDT Office Visit [facility] - Pulmonology & Sleep Medicine - [place] #2 [place] [address] Michelle Mendes APRN, SCIENTIFIC ADVISOR #2 [facility] [address] [place] [address] 08/11/2025 9:45 AM CDT Office Visit [facility] - Endocrinology - [place] #2 [place] [address] Kirsten Niño MD #2 [facility] [address] [place] [address] documented as of this encounter Visit Diagnoses Diagnosis Chronic constipation Unspecified constipation documented in this encounter Additional Health Concerns Assessment Noted Time PHQ-9 Depression Total Score: 18 024 10:00 AM PATROL CONDUCTOR documented as of this encounter Care Teams Churn Operator Relationship Specialty Start Date End Date Marco Woods MD #2 [facility] [address] [place] [address] PCP - General Family Medicine 11/22/17 Kirsten Niño MD #[address] [address] Consulting Physician Endocrinology 07/17/22 Chin Burrows MD #[address] [address] Consulting Physician General Surgery 11/22/22 Michelle Mendes APRN, SCIENTIFIC ADVISOR #2 [facility] [address] [place] [address] Nurse Practitioner Advanced Practice Nurse 08/14/22 Chantelle Nix APRN, SCIENTIFIC ADVISOR #2 [place] [address] Nurse Practitioner Advanced Practice Nurse 02/19/24 Analia Meza MD #[address] [place] [address] Consulting Physician Otolaryngology 05/11/25 documented as of this encounter
--- OUTSIDE RECORDS SUMMARY | 2025-05-19 10:26 | XMS_ITS | Encounter Summary ---
Author Organization [facility] Address [address] [place] [address] Phone Care Team Providers Care Senior Java Developer Name Role Phone Marco Woods MD Primary Care Provider [phone] Kirsten Niño MD Unavailable Chin Burrows MD Unavailable [phone] Kelsea Root RN Unavailable Unavailable Michelle Mendes APRN, PURCHASING ADMINISTRATOR Unavailable Chantelle Nix APRN, PURCHASING ADMINISTRATOR Unavailable Analia Meza MD Unavailable [phone] Reason for Visit * Reason Comments Medication Refill Encounter Details Date Type Department Care Team (Late st Contact Info) Description 03/30/2023 Refill [facility] - Family Medicine [facility] #2 [place] [address] Mirtha Steiner APRN, PURCHASING ADMINISTRATOR #[address] [address] Medication Refill Social History Tobacco Use Types Packs/Day Years Used Date Smoking Tobacco: Never Smokeless Tobacco: Never Alcohol Use Standard Drinks/Week Comments Not Currently 0 (1 standard drink = 0.6 oz pur e alcohol) Sexually Active Control Partners Comments Not Currently Comments No Sex and Gender Information Value Date Recorded Sex Assigned at Female 11/22/2023 11:58 AM WIRE FRAME LAMPSHADE MAKER Legal Sex Female 11:34 PM CDT Gender Identity Female 11/22/2023 11:58 AM WIRE FRAME LAMPSHADE MAKER Sexual Orientation Not on file Occupation [...] Dept 03/12/23 Office Visit Marco Woods MD [facility] 03/05/23 Office Visit Mirtha Steiner APRN, [facility] [place] 02/07/23 Office Visit Marco Woods MD [facility] 01/23/23 Office Visit Rebecca Liu APRN, [facility] [place] 12/05/22 Office Visit Marco Woods MD [facility] 10/25/22 Office Visit Maroc Woods MD [facility] [place] Showing recent visits within past 182 days and meeting all other requirements Future Appointments Date Type Provider Dept 04/03/23 Appointment Marco Woods MD [facility] 04/26/23 Appointment Marco Woods MD [facility] Showing [...] 11:00 AM CDT Office Visit [facility] - Family Medicine - [place] #2 [place] [address] Marco Woods MD #2 [facility] [address] [place] [address] 07/01/2025 11:00 AM CDT Office Visit [facility] - Ear, Nose & Throat - [place] #2 [place] [address] Analia Meza MD #2 [facility] [address] [place] [address] 07/03/2025 5:30 PM CD[facility] [address] [place] [address] Analia Meza MD #[address] [place] [address] Discharge Disposition: Discharged to home or Selfcare 07/17/2025 10:30 AM CDT [facility] - Pulmonology & Sleep Medicine - [place] #2 [place] [address] Michelle Mendes APRN, PURCHASING ADMINISTRATOR #2 [facility] [address] [place] [address] 08/11/2025 9:45 AM CDT Office Visit [facility] - Endocrinology - [place] #2 [place] [address] Kirsten Niño MD #2 [facility] [address] [place] [address] documented as of this encounter Visit Diagnoses Diagnosis Bipolar 1 disorder (HCC) Bipolar I disorder, most recent episode (or current) unspecified Anxiety Anxiety state, unspecified documented in this encounter Additional Health Concerns Infection Onset Date Last Indicated Resolved Time COVID - 19 06/01/2023 06/01/2023 06/01/2023 8:16 AM CDT COVID - 11/01/2023 11/01/2023 11/11/2023 12:1 6 AM WIRE FRAME LAMPSHADE MAKER COVID - 06/25/2024 06/25/2024 06/25/2024 6:36 PM CDT Assessment Noted Time PHQ-9 Depression Total Score: 0 11/22/19 10:00 AM WIRE FRAME LAMPSHADE MAKER documented as of this encounter Care Teams Senior Java Developer Relationship Specialty Start Date End Date Marco Woods MD #2 [facility] [address] [place] [address] PCP - General Family Medicine 11/22/17 Kirsten Niño MD #[address] [address] Consulting Physician Endocrinology 07/17/22 Chin Burrows MD #2 [facility] [address] [place] [address] Consulting Physician General Surgery 11/22/22 Kelsea Root, JUWAN [place] [employer] Glass Bender 06/15/23 08/26/23 Michelle Mendes APRN, PURCHASING ADMINISTRATOR #2 [facility] [address] [place] [address] Nurse Practitioner Advanced Practice Nurse 08/14/22 Chantelle Nix APRN, PURCHASING ADMINISTRATOR #[address] [place] [address] Nurse Practitioner Advanced Practice Nurse 02/19/24 Analia Meza MD #[address] [place] [address] [address] Consulting Physician Otolaryngology 05/11/25 documented as of this encounter
--- OUTSIDE RECORDS SUMMARY | 2025-05-19 10:26 | XMS_ITS | Encounter Summary ---
Author Organization [facility] Address [address] [place] [address] Phone Care Team Providers Care Passenger Agent Name Role Phone Marco Woods MD Primary Care Provider Kirsten Niño MD Unavailable Chin Burrows MD Unavailable Kelsea Root RN Unavailable Unavailable Michelle Mendes APRN, INSTRUMENT AND CONTROLS TECHNICIAN Unavailable Chantelle Nix APRN, INSTRUMENT AND CONTROLS TECHNICIAN Unavailable Analia Meza MD Unavailable [phone] Reason for Visit * Reason Comments Medication Refill Encounter Details Date Type Department Care Team (Late st Contact Info) Description 05/09/2023 [facility]ill [facility] [address] [place] [id number] Marco Woods MD [address] [address] Medication Refill Social History Tobacco Use Types [...] Sex Assigned at Female 11/22/2023 11:58 AM CANCER PROGRAM CONSULTANT Legal Sex Female 11:34 PM CDT Gender Identity Female 11/22/2023 11:58 AM CANCER PROGRAM CONSULTANT Sexual Orientation Not on file Occupation [...] reordered on 05/10/2023 by Mirtha Steiner APRN, INSTRUMENT AND CONTROLS TECHNICIAN. * Telephone Encounter - Amada Orozco RN - 05/10/2023 1:50 PM CDT duplicate * Telephone Encounter - Lesly Danielle RN - 05/09/2023 3:08 PM CDT Duplicate request documented in this encounter Plan of Treatment Upcoming Encounters Date Type Department Care Team (Late st Contact Info) Description 06/12/2025 11:00 AM CDT Office Visit [facility] - [facility] Medicine [facility] #2 [place] [address] Marco Woods MD [address] [address] 07/01/2025 11:00 AM CDT Office Visit [facility] - [facility]ose [facility]at - [place] #2 [place] [address] Analia Meza MD #[address] [address] 07/03/2025 5:30 PM CDT [facility] [address] [place] [address] Analia Meza MD #[address] [address] Discharge Disposition: Discharged to home or Selfcare 07/17/2025 10:30 AM CDT [facility] - [place] #2 [place] [address] Michelle Mendes APRN, INSTRUMENT AND CONTROLS TECHNICIAN #[address] [address] 08/11/2025 9:45 AM CDT Office Visit [facility] Endocrinology - [place] #2 [place] [address] Kirsten Niño MD #[address] [address] documented as of this encounter Visit Diagnoses Diagnosis Anxiety Anxiety state, unspecified documented in this encounter Additional Health Concerns Infection Onset Date Last Indicated Resolved Time COVID - 19 06/01/2023 06/01/2023 06/01/2023 8:16 AM CDT COVID - 19 11/01/2023 11/01/2023 11/11/2023 12:1 6 AM CANCER PROGRAM CONSULTANT COVID - 06/25/2024 06/25/2024 06/25/2024 6:36 PM CDT Assessment Noted Time PHQ-9 Depression Total Score: 0 11/22/19 10:00 AM CANCER PROGRAM CONSULTANT documented as of this encounter Care Teams Passenger Agent Relationship Specialty Start Date End Date Marco Woods MD [facility] [address] [place] [address] PCP - General Family Medicine 11/22/17 Kirsten Niño MD #2 [facility] [address] [place] [address] Consulting Physician Endocrinology 07/17/22 Chin Burrows MD #2 [facility] [address] [place] [address] Consulting Physician General Surgery 11/22/22 Kelsea Root RN [place] Cfo Controller 06/15/23 08/26/23 Michelle Mendes APRN, INSTRUMENT AND CONTROLS TECHNICIAN #[facility] [address] [place] [address] Nurse Practitioner Advanced Practice Nurse 08/14/22 Chantelle Nix APRN, INSTRUMENT AND CONTROLS TECHNICIAN #2 [place] [address] Nurse Practitioner Advanced Practice Nurse 02/19/24 Analia Meza MD #2 [facility] [address] [place] [address] Consulting Physician Otolaryngology 05/11/25 documented as of this encounter
--- OUTSIDE RECORDS SUMMARY | 2025-05-19 10:26 | XMS_ITS | Clinical Summary ---
[facility] Organization [facility] Address [address] [place] [address] Care Team Providers Care Painting Contractor Name Role Phone Nikhil Robles MD Primary Care Provider [phone] Allergies Active Allergy Reactions Criticality Noted Date [...] Nasal saline spray (Simply saline, Little Remedies, [place], [place]) 2 second sprays or 2 squeezes into [...] Continue to rinse mouth after using inhaler Encounters Date Type Department Care Team Description 04/17/2025 Telephone [facility] Orthopedics and Sports Medicine [address] [place] [address] Jamie Power MD 03/30/2025 Telephone [facility] Gastroenterology at [address] [place] [address] Mishel Hudson MA from Last 3 Months Surgical History Surgery Date Site/Laterality Comments TOTAL KNEE ARTHROPLASTY Bilateral ESOPHAGOGASTRODUODENOSCOPY COLONOSCOPY LAPAROSCOPIC CHOLECYSTECTOMY PARATHYROIDECTOMY CATARACT EXTRACTION W/ INTRAOCULAR LENS IMPLANT GASTROJEJUNOSTOMY Gastrectomy SPLENECTOMY Medical History Medical History Date Comments Obesity DJD (degenerative joint disease) COPD (chronic obstructive pulmonary disease) (HC C) MDD (major depressive disorder) Bipolar 1 disorder (HCC) Hypothyroidism Adenomatous colon polyp Chronic idiopathic constipation Dementia (HCC) Multinodular goiter HTN (hypertension) HLD (hyperlipidemia) Osteoporosis RLS (restless legs syndrome) Skin cancer Vitamin D deficiency Metabolic dysfunction-associ ated steatotic liver disease (MASLD) GERD (gastroesophageal reflux disease) Hemolytic anemia NETTA (generalized anxiety disorder) Duodenal stenosis Requiring carmine rojejunostomy. Family History Medical History Relation Name Comments [...] on file Legal Sex Female 6:03 PM MEDICAL OPERATIONS SUPERVISOR Gender Identity Not on file Sexual Orientation Not on file Obstetrics History Last Filed Vital Signs Vital Sign Reading Time Taken Comments Blood Pressure 170/75 09/19/2023 10:51 AM MEDICAL OPERATIONS SUPERVISOR Pulse 114 09/19/2023 2:00 PM MEDICAL OPERATIONS SUPERVISOR Temperature 36.6 C (97.8 F) 09/19/2023 10:51 AM MEDICAL OPERATIONS SUPERVISOR Respiratory Rate 18 09/19/2023 10:51 AM MEDICAL OPERATIONS SUPERVISOR Oxygen Saturation 98% 09/19/2023 10:51 AM MEDICAL OPERATIONS SUPERVISOR Inhaled Oxygen Concentration - - Weight 80.3 kg (177 lb) 09/18/2023 3:16 PM MEDICAL OPERATIONS SUPERVISOR Height 157.5 cm (5' 2) 09/18/2023 3:16 PM MEDICAL OPERATIONS SUPERVISOR Body Mass Index 32.37 09/18/2023 3:16 PM MEDICAL OPERATIONS SUPERVISOR Plan of Treatment Health Maintenance Due Date Last Done Comments Breast Cancer Screening-Mammogram 1955 Colon Cancer Screening-Colonoscopy 1955 Depression Screening 1955 Hepatitis C Screening 1955 Osteoporosis Screening-Bone Density Scan 1955 Well Visit 65+ 2020 Zoster Vaccine (2 of 2) 06/04/2023 04/09/2023 Covid-19 Vaccine (3 - 2023-2 5 season) 2024 04/23/2021, 03/26/2021 Fall Risk Assessment 09/19/2024 09/19/2023 Influenza Vaccine (#1) 2025 , 06/09/2021, 06/28/2020, Additional history exists DTaP/Tdap/Td Vaccine (2 - Td or Tdap) 07/16/2031 07/16/2021 Hepatitis B Screening Completed 03/04/2015 Pneumococcal vaccine 65+ Completed 022, 06/19/2021, 08/30/2017, Additional history exists Insurance [facility] MEDIC[facility] ADVANTAGE Advance Directives For more information, please contact: [phone] * Full Code (Latest Code Status on File) Date Activated Date Inactivated Comments 09/18/2023 2:35 PM 09/19/2023 6:39 PM * Full Code Date Activated Date Inactivated Comments 09/18/2023 12:47 PM 09/18/2023 2:35 PM Care Teams Painting Contractor Relationship Specialty Start Date End Date Nikhil Robles MD [address] [place] [address] PCP - General Emergency Medicine 03/12/24
--- OUTSIDE RECORDS SUMMARY | 2025-05-19 10:26 | XMS_ITS | Encounter Summary ---
Author Organization [facility] Address [address] [place] [address] Phone Care Team Providers Care Private Duty Lpn Name Role Phone aMrco Woods MD Primary Care Provider Kirsten Niño MD Unavailable Chni Burrows MD Unavailable Kelsea Root RN Unavailable Unavailable Michelle Mendes APRN, ADOBE MAKER Unavailable Chantelle Nix APRN, ADOBE MAKER Unavailable Analia Meza MD Unavailable [phone] Reason for Visit * Reason Comments Medication Refill Encounter Details Date Type Department Care Team (Late st Contact Info) Description 02/01/2023 Refill [facility] - [place] #[address] [place] [phone] Deanna Leavitt Humera, PAC [address] [place] [address] Medication Refill Social History Tobacco Use Types Packs/Day Years Used Date Smoking Tobacco: Never Smokeless Tobacco: Never Alcohol Use Standard Drinks/Week Comments Not Currently 0 (1 standard drink = 0.6 oz pur e alcohol) Sexually Active Control Partners Comments Not Currently Comments No Sex and Gender Information Value Date Recorded Sex Assigned at Female 11/22/2023 11:58 AM PROJECT SPECIALIST Legal Sex Female 11:34 PM CDT Gender Identity Female 11/22/2023 11:58 AM PROJECT SPECIALIST Sexual Orientation Not on file Occupation [...] Description 06/12/2025 11:00 AM CDT Office Visit [facility] - Family Medicine [facility] [address] [place] [address] Marco Woods MD #[address] [address] 07/01/2025 11:00 AM CDT Office Visit [facility] - Ear, Nose & Throat - [place] #2 [place] [address] Analia Meza MD #[address] [address] 07/03/2025 5:30 PM CDT [facility] [address] [place] [address] Analia Meza MD #[address] [address] Discharge Disposition: Discharged to home or Selfcare 07/17/2025 10:30 AM CDT [facility] - Pulmonology & Sleep Medicine - [place] #2 [place] [address] Michelle Mendes APRN, ADOBE MAKER #[address] [address] 08/11/2025 9:45 AM CDT Office Visit [facility] - Endocrinology - [place] #2 [place] [address] Kirsten Niño MD #[address] [address] documented as of this encounter Visit Diagnoses Diagnosis Gastroesophageal reflux disease without esophagitis Esophageal reflux documented in this encounter Additional Health Concerns Infection Onset Date Last Indicated Resolved Time COVID - 19 06/01/2023 06/01/2023 06/01/2023 8:16 AM CDT COVID - 11/01/2023 11/01/2023 11/11/2023 12:1 6 AM PROJECT SPECIALIST COVID - 19 06/25/2024 06/25/2024 06/25/2024 6:36 PM CDT Assessment Noted Time PHQ-9 Depression Total Score: 0 11/22/19 18 10:00 AM PROJECT SPECIALIST documented as of this encounter Care Teams Private Duty Lpn Relationship Specialty Start Date End Date Marco Woods MD #2 [facility] [address] [place] [address] PCP - General Family Medicine 11/22/17 Kirsten Niño MD #2 [facility] [address] [place] [address] Consulting Physician Endocrinology 07/17/22 Chin Burrows MD #[address] [address] Consulting Physician General Surgery 11/22/22 Kelsea Root RN [place] Furnace Reliner 06/15/23 08/26/23 Michelle Mendes APRN, ADOBE MAKER #2 [facility] [address] [place] [address] Nurse Practitioner Advanced Practice Nurse 08/14/22 Chantelle Nix APRN, ADOBE MAKER #2 [place] [address] Nurse Practitioner Advanced Practice Nurse 02/19/24 Analia Meza MD #[address] [address] Consulting Physician Otolaryngology 05/11/25 documented as of this encounter
--- OUTSIDE RECORDS SUMMARY | 2025-05-19 10:26 | XMS_ITS | Encounter Summary ---
Author Organization [facility] Address [address] [place] [address] Phone Care Team Providers Care Rubber Grinder Name Role Phone Marco Woods MD Primary Care Provider [phone] Kirsten Niño MD Unavailable Chin Burrows MD Unavailable [phone] Kelsea Root RN Unavailable Unavailable Michelle Mendes APRN, AIRPORT MANAGER Unavailable [phone] Chantelle Nix APRN, AIRPORT MANAGER Unavailable Analia Meza MD Unavailable [phone] Reason for Visit * Reason Comments Medication Refill Encounter Details Date Type Department Care Team (Late st Contact Info) Description 01/22/2023 Refill [facility] End[facility]ology - [place] #[address] [place] [address] Kirsten Niño MD #[address] [address] Medication Refill Social History Tobacco Use Types Packs/Day Years Used Date Smoking Tobacco: Never Smokeless Tobacco: Never Alcohol Use Standard Drinks/Week Comments Not Currently 0 (1 standard drink = 0.6 oz pur e alcohol) Sexually Active Control Partners Comments Not Currently Comments No Sex and Gender Information Value Date Recorded Sex Assigned at Female 11/22/2023 11:58 AM HAND SALTER Legal Sex Female 11:34 PM CDT Gender Identity Female 11/22/2023 11:58 AM HAND SALTER Sexual Orientation Not on file Occupation Industry [...] Description 06/12/2025 11:00 AM CDT Office Visit [facility] Medical [facility] - Family Medicine - [place] #2 [place] [address] Marco Woods MD #2 [facility] [address] [place] [address] 07/01/2025 11:00 AM CDT Office Visit [facility] Medical [facility] - Ear, Nose & Throat - [place] #2 [place] [address] Analia Meza MD #2 [facility] [address] [place] [address] 07/03/2025 5:30 PM CD[facility] [address] [place] [address] Analia Meza MD #[address] [address] Discharge Disposition: Discharged to home or Selfcare 07/17/2025 10:30 AM CDT Office Visit [facility] - Pulmonology & Sleep Medicine - [place] #2 [place] [address] Michelle Mendes APRN, AIRPORT MANAGER #2 [facility] [address] [place] [address] 08/11/2025 9:45 AM CDT Office Visit [facility] - Endocrinology [facility] #[address] [place] [address] Kirsten Niño MD #[address] [address] documented as of this encounter Visit Diagnoses Not on filedocumented in this encounter Additional Health Concerns Infection Onset Date Last Indicated Resolved Time COVID - 06/01/2023 06/01/2023 06/01/2023 8:16 AM CDT COVID - 11/01/2023 11/01/2023 11/11/2023 12:1 6 AM HAND SALTER COVID - 06/25/2024 06/25/2024 06/25/2024 6:36 PM CDT Assessment Noted Time PHQ-9 Depression Total Score: 0 11/22/19 10:00 AM HAND SALTER documented as of this encounter Care Teams Rubber Grinder Relationship Specialty Start Date End Date Marco Woods MD [facility] [address] [address] PCP - General Family Medicine 11/22/17 Kirsten Niño MD [address] [address] Consulting Physician Endocrinology 07/17/22 Chin Burrows MD #[address] [address] Consulting Physician General Surgery 11/22/22 Kelsea Root RN [place] Commercial Or Institutional Cleaner 06/15/23 08/26/23 Michelle Mendes APRN, AIRPORT MANAGER #2 [facility] [address] [place] [address] Nurse Practitioner Advanced Practice Nurse 08/14/22 Chantelle Nix APRN, AIRPORT MANAGER #2 [place] [address] Nurse Practitioner Advanced Practice Nurse 02/19/24 Analia Meza MD #2 [facility] [address] [place] [address] Consulting Physician Otolaryngology 05/11/25 documented as of this encounter
--- OUTSIDE RECORDS SUMMARY | 2025-05-19 10:26 | XMS_ITS | Encounter Summary ---
Author Organization [facility] Address [address] [place] [address] Phone Care Team Providers Care Rigger Supervisor Name Role Phone Marco Woods MD Primary Care Provider Kirsten Niño MD Unavailable Chin Burrows MD Unavailable Kelsea Root RN Unavailable Unavailable Michelle Mendes APRN, BELLY PACKER Unavailable Chantelle Nix APRN, BELLY PACKER Unavailable Analia Meza MD Unavailable [phone] Reason for Visit * Reason Comments Medication Refill Encounter Details Date Type Department Care Team (Late st Contact Info) Description 05/08/2023 Refill [facility] #[address] [place] [address] Marco Woods MD [address] [address] Medication Refill Social History Tobacco Use Types [...] Sex Assigned at Female 11/22/2023 11:58 AM UNDERPRESSER HAND Legal Sex Female 11:34 PM CDT Gender Identity Female 11/22/2023 11:58 AM UNDERPRESSER HAND Sexual Orientation Not on file Occupation [...] CNP - 05/10/2023 10:28 PM CDT [place] TUBULAR RIVETER reviewed, UDS reviewed. Approved * Telephone Encounter [...] MD [facility] 03/12/23 Office Visit Marco Wodos MD [facility] 03/05/23 Office Visit Mirtha Steiner APRN, CNP [facility] 02/07/23 Office Visit Marco Woods MD [facility] 01/23/23 Office Visit Rebecca Liu, MADDY, BELLY PACKER [facility] 10/25/22 Office Visit [facility] 08/29/22 Office Visit Ronald Shaffer APRN, BELLY PACKER [facility] visits within past 365 days and meeting all other requirements Future Appointments Date Type Provider Dept 08/02/23 Appointment Marco Woods MD [facility] 08/07/23 Appointment [facility] Show[facility] future appointments within next 90 days and meeting all other requirements documented in this encounter Plan of Treatment Upcoming Encounters Date Type Department Care Team (Late st Contact Info) Description 06/12/2025 11:00 AM CDT [facility] - [place] #2 [place] [address] Marco Woods MD #[address] [address] 07/01/2025 11:00 AM CDT Office Visit [facility] - Ear, Nose & Throat - [place] #2 [place] [address] Analia Meza MD #[address] [address] 07/03/2025 5:30 PM CDT Appointment [facility] [address] [place] [address] Analia Meza MD #[address] [address] Discharge Disposition: Discharged to home or Selfcare 07/17/2025 10:30 AM CDT Office Visit [facility] - Pulmonology & Sleep Medicine - [place] #2 [facility] [place] [address] Michelle Mendes APRN, BELLY PACKER #2 [facility] [address] [place] [address] 08/11/2025 9:45 AM CDT Office Visit [facility] - Endocrinology - [place] #2 [place] [address] Kirsten Niño MD #2 [facility] [address] [place] [address] documented as of this encounter Visit Diagnoses Diagnosis Anxiety Anxiety state, unspecified documented in this encounter Additional Health Concerns Infection Onset Date Last Indicated Resolved Time COVID - 19 06/01/2023 06/01/2023 06/01/2023 8:16 AM CDT COVID - 19 11/01/2023 11/01/2023 11/11/2023 12:1 6 AM UNDERPRESSER HAND COVID - 19 06/25/2024 06/25/2024 06/25/2024 6:36 PM CDT Assessment Noted Time PHQ-9 Depression Total Score: 0 11/22/19 10:00 AM UNDERPRESSER HAND documented as of this encounter Care Teams Rigger Supervisor Relationship Specialty Start Date End Date Marco Woods MD #2 [facility] [address] [place] [address] PCP - General Family Medicine 11/22/17 Kirsten Niño MD #2 [facility] [address] [place] [address] Consulting Physician Endocrinology 07/17/22 Chin Burrows MD #2 [facility] [address] [place] [address] Consulting Physician General Surgery 11/22/22 Kelsea Root RN [place] Handkerchief Presser 06/15/23 08/26/23 Michelle Mendes APRN, BELLY PACKER #2 [facility] [address] [place] [address] Nurse Practitioner Advanced Practice Nurse 08/14/22 Chantelle Nix APRN, BELLY PACKER #2 [place] [address] Nurse Practitioner Advanced Practice Nurse 02/19/24 Analia Meza MD #2 [facility] [address] [place] [address] Consulting Physician Otolaryngology 05/11/25 documented as of this encounter
--- OUTSIDE RECORDS SUMMARY | 2025-05-19 10:26 | XMS_ITS | Encounter Summary ---
Author Organization [facility] Address [address] [place] [address] Phone Care Team Providers Care Crystal Inspector Name Role Phone Marco Woods MD Primary Care Provider [phone] Kirsten Niño MD Unavailable Chin Burrows MD Unavailable Michelle Mendes APRN, CUSTOMER SERVICE SUPERVISOR Unavailable Chantelle Nix APRN, CUSTOMER SERVICE SUPERVISOR Unavailable Analia Meza MD Unavailable [phone] Reason for Visit * Reason Comments Medication Refill Encounter Details Date Type Department Care Team (Late st Contact Info) Description 10/03/2024 [facility]ill [facility] - Gastroenterology - [place] #2 [place] [address] Chantelle Nix APRN, CUSTOMER SERVICE SUPERVISOR #2 [place] [address] Medication Refill Social History Tobacco Use Types Packs/Day Years Used Date Smoking Tobacco: Never Smokeless Tobacco: Never Alcohol Use Standard Drinks/Week Comments Not Currently 0 (1 standard drink = 0.6 oz pur e alcohol) [facility] Utilities Answer Date Recorded In the past 12 months has [employer], gas, oil, or water company threatened to [...] declined 06/25/2024 How often do you attend jain or jehovah's witness serv ices? Patient declined 06/25/2024 Do you belong to any clubs o r organizations such as jain groups, unions, fraternal or athletic groups, or [...] Score - Questions 1-9 18 10/24 [facility] [...] time in the past 12 m [facility], were you homeless or [...] Sex Assigned at Female 11/22/2023 11:58 AM HEAD BAKER Legal Sex Female 11:34 PM CDT Gender Identity Female 11/22/2023 11:58 AM HEAD BAKER Sexual Orientation Not on file Occupation Industry [...] Dept Phone 10/31/2024 11:15 AM Kirsten Niño [facility] - Endocrinology - [place] [phone] BAKER * Telephone Encounter - Denise Honeycutt RN - 10/06/2024 9:16 AM HEAD BAKER Medication refilled and signed per [facility] chronic medication standing order for pediatric and adult patients. BAKER documented in this encounter Plan of Treatment Upcoming Encounters Date Type Department Care Team (Late st Contact Info) Description 06/12/2025 11:00 AM CDT Office Visit [facility] Medical [facility] - Family Medicine - [place] [address] [place] [address] Marco Woods MD [address] [address] 07/01/2025 11:00 AM CDT Office Visit [facility] - Ear, Nose & Throat - [place] #2 [place] [address] Analia Meza MD #[address] [address] 07/03/2025 5:30 PM CD[facility] [address] [place] [address] Analia Meza MD #[address] [place] [address] Discharge Disposition: Discharged to home or Selfcare 07/17/2025 10:30 AM CDT Office Visit [facility] - Pulmonology & Sleep Medicine [facility] #2 [place] [address] Michelle Mendes APRN, CUSTOMER SERVICE SUPERVISOR #[address] [address] 08/11/2025 9:45 AM CDT Office Visit [facility] [facility] Group - Endocrinology - [place] #2 [place] [address] Kirsten Niño MD #[address] [address] documented as of this encounter Visit Diagnoses Diagnosis Chronic constipation Unspecified constipation documented in this encounter Additional Health Concerns Assessment Noted Time PHQ-9 Depression Total Score: 18 024 10:00 AM HEAD BAKER documented as of this encounter Care Teams Crystal Inspector Relationship Specialty Start Date End Date Marco Woods MD #2 [facility] [address] [place] [address] PCP - General Family Medicine 11/22/17 Kirsten Niño MD #[address] [address] Consulting Physician Endocrinology 07/17/22 Chin Burrows MD [facility] [address] Consulting Physician General Surgery 11/22/22 Michelle Mendes APRN, CUSTOMER SERVICE SUPERVISOR #[address] [address] Nurse Practitioner Advanced Practice Nurse 08/14/22 Chantelle Nix APRN, CUSTOMER SERVICE SUPERVISOR #2 [place] [address] Nurse Practitioner Advanced Practice Nurse 02/19/24 Analia Meza MD #2 [facility] [address] [address] Consulting Physician Otolaryngology 05/11/25 documented as of this encounter
--- OUTSIDE RECORDS SUMMARY | 2025-05-19 10:26 | XMS_ITS | Encounter Summary ---
Author Organization [facility] Address [address] [place] [address] Phone Care Team Providers Care Proof Passer Name Role Phone Marco Woods MD Primary Care Provider [phone] Kirsten Niño MD Unavailable Chin Burrows MD Unavailable [phone] Kelsea Root RN Unavailable Unavailable Michelle Mendes APRN, WET ROOM WORKER Unavailable Chantelle Nix APRN, WET ROOM WORKER Unavailable Analia Meza MD Unavailable [phone] Reason for Visit * Reason Comments Medication Refill Encounter Details Date Type Department Care Team (Late st Contact Info) Description 02/11/2022 [facility]ill [facility] - Pulmonology & Sleep Medicine [facility] #[address] [place] [address] Michelle Mendes APRN, WET ROOM WORKER #[address] [address] Medication Refill Social History Tobacco Use Types Packs/Day Years Used Date Smoking Tobacco: Never Smokeless Tobacco: Former Alcohol Use Standard Drinks/Week Comments Not Currently 0 (1 standard drink = 0.6 oz pur e alcohol) Sexually Active Control Partners Comments Not Currently Comments No Sex and Gender Information Value Date Recorded Sex Assigned at Female 11/22/2023 11:58 AM GARLAND MAKER Legal Sex Female 11:34 PM CDT Gender Identity Female 11/22/2023 11:58 AM GARLAND MAKER Sexual Orientation Not on file Occupation [...] Pulm & Sleep [place] [address] 01/10/22 Office Visit Marco Woods MD [facility] 11/11/21 Office Visit Michelle Mendes APRN, DREW [facility] [place] [address] 10/04/21 Office Visit Marco Woods MD [facility] 08/08/21 Office Visit Michelle Mendes APRN, DREW [facility] [place] [address] 06/29/21 Office Visit Marco Woods MD [facility] 04/04/21 Office Visit Michelle Mendes APRN, DREW [facility] [place] [address] 03/25/21 Office Visit Marco Woods MD [facility] 02/22/21 Office Visit Marco Woods MD [facility] [place] Showing recent visits within past 365 days and meeting all other requirements Future Appointments Date Type Provider Dept 04/19/22 Appointment Marco Woods MD [facility] [place] Showing future appointments within next 90 days and meeting all other requirements documented in this encounter Plan of Treatment Upcoming Encounters Date Type Department Care Team (Late st Contact Info) Description 06/12/2025 11:00 AM CDT Office Visit [facility] Medical [facility] - Family Medicine - [place] #2 [place] [address] Marco Woods MD #2 [facility] [address] [place] [address] 07/01/2025 11:00 AM CDT Office Visit [facility] Medical [facility] - Ear, Nose & Throat - [place] #2 [place] [address] Analia Meza MD #2 [facility] [address] [place] [address] 07/03/2025 5:30 PM CDT [facility] [address] [place] [address] Analia Meza MD #2 [facility] [address] [place] [address] Discharge Disposition: Discharged to home or Selfcare 07/17/2025 10:30 AM CDT Office Visit [facility] Medical [facility] - Pulmonology & Sleep Medicine - [place] #2 [place] [address] Michelle Mendes APRN, WET ROOM WORKER #2 [facility] [address] [place] [address] 08/11/2025 9:45 AM CDT Office Visit [facility] - Endocrinology [facility] #2 [place] [address] Kirsten Niño MD #2 [facility] [address] [place] [address] documented as of this encounter Visit Diagnoses Diagnosis PNAR (perennial non-allergic rhinitis) Chronic rhinitis documented in this encounter Additional Health Concerns Infection Onset Date Last Indicated Resolved Time COVID - 19 06/29/2022 06/29/2022 07/09/2022 12:1 6 AM CDT COVID - 19 11/20/2022 11/20/2022 11/24/2022 8:51 AM GARLAND MAKER COVID - 19 12/31/2022 12/31/2022 01/10/2023 12:1 8 AM CDT COVID - 19 Confirmed 12/31/2022 12/31/2022 023 12:17 AM CDT COVID - 19 06/01/2023 06/01/2023 06/01/2023 8:16 AM CDT COVID - 19 11/01/2023 11/01/2023 11/11/2023 12:1 6 AM GARLAND MAKER COVID - 19 06/25/2024 06/25/2024 06/25/2024 6:36 PM CDT Assessment Noted Time PHQ-9 Depression Total Score: 0 11/22/19 18 10:00 AM GARLAND MAKER documented as of this encounter Care Teams Proof Passer Relationship Specialty Start Date End Date Marco Woods MD #2 [facility] [address] [place] [address] PCP - General Family Medicine 11/22/17 Kirsten Niño MD #[address] [address] Consulting Physician Endocrinology 07/17/22 Chin Burrows MD #2 [facility] [address] [place] [address] Consulting Physician General Surgery 11/22/22 Kelsea Root, JUWAN [place] Electrician Maintenance 06/15/23 08/26/23 Michelle Mendes APRN, WET ROOM WORKER #2 [facility] [address] [place] [address] Nurse Practitioner Advanced Practice Nurse 08/14/22 Chantelle Nix APRN, WET ROOM WORKER #2 [place] [address] Nurse Practitioner Advanced Practice Nurse 02/19/24 Analia Meza MD #2 [facility] [address] [address] Consulting Physician Otolaryngology 05/11/25 documented as of this encounter
--- OUTSIDE RECORDS SUMMARY | 2025-05-19 10:26 | XMS_ITS | Encounter Summary ---
Author Organization [facility] Address [address] [place] [address] Phone Care Team Providers Care Salesforce Specialist Name Role Phone Marco Woods MD Primary Care Provider Kirsten Niño MD Unavailable Chin Burrows MD Unavailable Michelle Mendes APRN, CAR SPOTTER Unavailable Chantelle Nix APRN, CAR SPOTTER Unavailable Analia Meza MD Unavailable [phone] Reason for Visit * Reason Comments Medication Refill Encounter Details Date Type Department Care Team (Late st Contact Info) Description 05/10/2024 Refill [facility] - Pulmonology & Sleep Medicine [facility] #[address] [place] [address] Michelle Mendes APRN, CAR SPOTTER #[address] [address] Medication Refill Social History Tobacco Use Types Packs/Day Years Used Date Smoking Tobacco: Never Smokeless Tobacco: Never Alcohol Use Standard Drinks/Week Comments Not Currently 0 (1 standard drink = 0.6 oz pur e alcohol) [facility] Utilities Answer Date Recorded In the past 12 months has [employer], gas, oil, or water [employer] threatened to shut off services in your home? Patient declined 11/28/2023 Social Connection and Isolation Panel Answer Date Recorded In a typical week, how many times do you talk on the phone with family, friends, or neighbors? Patient declined 11/28/2023 How often do you get togethe r with friends or relatives? Patient declined 11/28/2023 How often do you attend shinto or orthodox serv ices? Patient declined 11/28/2023 Do [...] Total Score - Questions 1-9 18 10/24 [facility] - Occupational Stress Questionnaire Answer Date [...] a half-way (including now)? Patient declined 11/28/2023 Education Answer Date Recorded What is the highest level of school you have completed or the highest degree you have received? 12th grade 04/03/2023 Sexually Active Control Partners Comments Not Currently Comments No Sex and Gender Information Value Date Recorded Sex Assigned at Female 11/22/2023 11:58 AM MOVIE OPERATOR Legal Sex Female 11:34 PM CDT Gender Identity Female 11/22/2023 11:58 AM MOVIE OPERATOR Sexual Orientation Not on file Occupation [...] [facility] - [facility] - [place] #[address] [place] [address] Marco Woods MD #[address] [address] 07/01/2025 11:00 AM CDT Office Visit [facility]at - [place] #2 [place] [address] Analia Meza MD #[address] [address] 07/03/2025 5:30 PM CD[facility] [place] [address] Analia Meza MD #2 [facility] [address] [address] Discharge Disposition: Discharged to home or Selfcare 07/17/2025 10:30 AM CDT Office Visit [facility] Medical [facility] - Pulmonology & Sleep Medicine - [place] #2 [place] [address] Michelle Mendes APRN, CAR SPOTTER #[address] [address] 08/11/2025 9:45 AM CDT [facility] - [place] #2 [place] [address] Kirsten Niño MD #[address] [address] documented as of this encounter Visit Diagnoses Not on filedocumented in this encounter Additional Health Concerns Infection Onset Date Last Indicated Resolved Time COVID - 19 06/25/2024 06/25/2024 06/25/2024 6:3 6 PM CDT Assessment Noted Time PHQ-9 Depression Total Score: 18 11/20/ 024 10:00 AM MOVIE OPERATOR documented as of this encounter Care Teams Salesforce Specialist Relationship Specialty Start Date End Date Marco Woods MD #2 [facility] [address] [place] [address] PCP - General Family Medicine 11/22/17 Kirsten Niño MD #2 [facility] [address] [place] [address] Consulting Physician Endocrinology 07/17/22 Chin Burrows MD #[address] [address] Consulting Physician General Surgery 11/22/22 Michelle Mendes APRN, CAR SPOTTER #2 [facility] [address] [place] [address] Nurse Practitioner Advanced Practice Nurse 08/14/22 Chantelle Nix APRN, CAR SPOTTER #2 [place] [address] Nurse Practitioner Advanced Practice Nurse 02/19/24 Analia Meza MD #[address] [address] Consulting Physician Otolaryngology 05/11/25 documented as of this encounter
--- OUTSIDE RECORDS SUMMARY | 2025-05-19 10:27 | XMS_ITS | Encounter Summary ---
Author Organization [facility] Address [address] [place] [address] Phone Care Team Providers Care Records Section Supervisor Name Role Phone Marco Woods MD Primary Care Provider [phone] Kirsten Niño MD Unavailable Chin Burrows MD Unavailable [phone] Kelsea Root RN Unavailable Unavailable Michelle Mendes APRN, PILOT INSTRUCTOR Unavailable Chantelle Nix APRN, PILOT INSTRUCTOR Unavailable Analia Meza MD Unavailable [phone] Reason for Visit * Reason Comments Medication Refill Encounter Details Date Type Department Care Team (Late st Contact Info) Description 12/26/2020 Refill [facility] [address] [place] [address] Mirtha Steiner APRN, PILOT INSTRUCTOR #2 [place] [address] Medication Refill Social History Tobacco Use Types Packs/Day Years Used Date Smoking Tobacco: Never Smokeless Tobacco: Former Alcohol Use Standard Drinks/Week Comments Not Currently 0 (1 standard drink = 0.6 oz pur e alcohol) Sexually Active Control Partners Comments Not Currently Comments No Sex and Gender Information Value Date Recorded Sex Assigned at Female 11/22/2023 11:58 AM SECURITY AND COMPLIANCE PROJECT MANAGER Legal Sex Female 11:34 PM CDT Gender Identity Female 11/22/2023 11:58 AM SECURITY AND COMPLIANCE PROJECT MANAGER Sexual Orientation Not on file Occupation Industry Job Start Date Job End Date disabled Not on file Not on file Not on file COVID-19 Exposure Response Date Recorded In the last month, have you been in contact with someone who was confirmed or suspected to have Coronavirus / COVID-19? No / Unsure 12/27/2020 8:52 AM SECURITY AND COMPLIANCE PROJECT MANAGER documented as of this encounter Miscellaneous Notes [...] Receipt confirmed by pharmacy (11/16/2020 10:27 AM SECURITY AND COMPLIANCE PROJECT MANAGER) amLODIPine (NORVASC) 5 MG Tablet [[id number]] 26 Status: Active Ordering user: Marco Woods MD 11/16/201026 Authorized by: Marco Woods MD Frequency: Daily 11/16/20 - Until Discontinued Released by: Marco Woods MD 11/16/20 1027 Pharmacy [id number] [facility] RITY AND COMPLIANCE PROJECT MANAGER documented in this encounter Plan of Treatment Upcoming Encounters Date Type Department Care Team (Late st Contact Info) Description 06/12/2025 11:00 AM CDT Office Visit [facility] - Family Medicine - [place] #[address] [place] [address] Marco Woods MD #[address] [address] [address] 07/01/2025 11:00 AM CDT Office Visit [facility] - Ear, Nose & Throat - [place] #2 [facility] [place] [address] Analia Meza MD #[address] [address] 07/03/2025 5:30 PM CDT [facility] [address] [place] [address] Analia Meza MD #[address] [address] Discharge Disposition: Discharged to home or Selfcare 07/17/2025 10:30 AM CDT [facility] - [place] #2 [place] [address] Michelle Mendes APRN, DREW #[address] [address] 08/11/2025 9:45 AM CDT Office Visit [facility] End[facility] - [place] #2 [place] [address] iKrsten Niño MD #[address] [address] documented as of this encounter Visit Diagnoses Not on filedocumented in this encounter Additional Health Concerns Infection Onset Date Last Indicated Resolved Time COVID - 19 06/29/2022 06/29/2022 07/09/2022 12:1 6 AM CDT COVID - 19 11/20/2022 11/20/2022 11/24/2022 8:51 AM SECURITY AND COMPLIANCE PROJECT MANAGER COVID - 19 12/31/2022 12/31/2022 01/10/2023 12:1 8 AM CDT COVID - 19 Confirmed 12/31/2022 12/31/2022 023 12:17 AM CDT COVID - 19 06/01/2023 06/01/2023 06/01/2023 8:16 AM CDT COVID - 19 11/01/2023 11/01/2023 11/11/2023 12:1 6 AM SECURITY AND COMPLIANCE PROJECT MANAGER COVID - 19 06/25/2024 06/25/2024 06/25/2024 6:36 PM CDT Assessment Noted Time PHQ-9 Depression Total Score: 0 11/22/19 10:00 AM SECURITY AND COMPLIANCE PROJECT MANAGER documented as of this encounter Care Teams Records Section Supervisor Relationship Specialty Start Date End Date Marco Woods MD #2 [facility] [address] [place] [address] PCP - General Family Medicine 11/22/17 Kirsten Niño MD #2 [facility] [address] [place] [address] Consulting Physician Endocrinology 07/17/22 Chin Burrows MD #2 [facility] [address] [place] [address] Consulting Physician General Surgery 11/22/22 Kelsea Root RN [place] [employer] Auto Body Repairer 06/15/23 08/26/23 Michelle Mendes APRN, PILOT INSTRUCTOR #2 [facility] [address] [place] [address] Nurse Practitioner Advanced Practice Nurse 08/14/22 Chantelle Nix APRN, PILOT INSTRUCTOR #2 [place] [address] Nurse Practitioner Advanced Practice Nurse 02/19/24 Analia Meza MD #[address] [facility] [address] [address] Consulting Physician Otolaryngology 05/11/25 documented as of this encounter
--- OUTSIDE RECORDS SUMMARY | 2025-05-19 10:27 | XMS_ITS | Encounter Summary ---
Author Organization [facility] Address [address] [place] [address] Phone Care Team Providers Care Filter Tank Tender Name Role Phone Marco Woods MD Primary Care Provider Kirsten Niño MD Unavailable Chin Burrows MD Unavailable Michelle Mendes CRIME SCENE TECHNICIAN, SENIOR HOUSEKEEPER Unavailable Chantelle Nix CRIME SCENE TECHNICIAN, SENIOR HOUSEKEEPER Unavailable Analia Meza MD Unavailable [phone] Encounter Details Date Type Department Care Team (Late st Contact Info) Description 04/12/2025 Results Follow-Up [facility]ial [facility] - [facility] - [place] [address] [place] [address] Jeniffer Devries APRN, SENIOR HOUSEKEEPER [address] [place] [address] POC GROUP A STREP BY MOLECULAR, POCT UA AUTOMATED W/O MICRO, VAGINITIS SCREEN, MOLECULAR Social History Tobacco Use Types Packs/Day Years Used Date Smoking Tobacco: Never Smokeless Tobacco: Never Alcohol Use Standard Drinks/Week Comments Not Currently 0 (1 standard drink = 0.6 oz pur e alcohol) [facility] Utilities Answer Date Recorded In the past 12 months has th e electric, gas, oil, or water [employer] threatened to shut off services in your home? Patient unable to answer 06/25/2024 Social Connection and Isolation Panel Answer Date Recorded In a typical week, how many times do you talk on the phone with family, friends, or neighbors? Patient declined 06/25/2024 How often do you get togethe r with friends or relatives? Patient declined 06/25/2024 How often do you attend episcopal or christian serv ices? Patient declined 06/25/2024 Do you belong to any clubs o r organizations such as episcopal groups, unions, fraternal or athletic groups, or [...] 1-9 18 10/24 [facility] - Occupational Stress Questionnaire Answer [...] a fdc (including now)? Patient declined 11/28/2023 Housing Stability [...] were you homeless or living in a fdc (including now)? Patient unable to answer 06/25/2024 Education Answer Date Recorded What is the highest level of school you have completed or the highest degree you have received? 12th grade 04/03/2023 Sexually Active Control Partners Comments Not Currently Comments No Sex and Gender Information Value Date Recorded Sex Assigned at Female 11/22/2023 11:58 AM DOSIMETRIST Legal Sex Female 11:34 PM CDT Gender Identity Female 11/22/2023 11:58 AM DOSIMETRIST Sexual Orientation Not on file Occupation Industry Job Start Date Job End Date disabled Not on file Not on file Not on file documented as of this encounter Plan of Treatment Upcoming Encounters Date Type Department Care Team (Late st Contact Info) Description 06/12/2025 11:00 AM CDT [facility] Visit [facility] #2 [place] [address] Marco Woods MD #2 [facility] [address] [place] [address] 07/01/2025 11:00 AM CDT Office Visit [facility] - [facility]ose & Throat - [place] #2 [place] [address] Analia Meza MD #[address] [address] 07/03/2025 5:30 PM CD[facility] [address] [place] [address] Analai Meza MD #[address] [phone] Discharge Disposition: Discharged to home or Selfcare 07/17/2025 10:30 AM CDT [facility] - [place] #2 [place] [address] Michelle Mendes APRN, SENIOR HOUSEKEEPER #2 [facility] [address] [place] [address] 08/11/2025 9:45 AM CDT Office Visit [facility] - Endocrinology - [place] #2 [place] [address] Kirsten Niño MD #[address] [place] [address] documented as of this encounter Visit Diagnoses Not on filedocumented in this encounter Additional Health Concerns Assessment Noted Time PHQ-9 Depression Total Score: 18 024 10:00 AM DOSIMETRIST documented as of this encounter Care Teams Filter Tank Tender Relationship Specialty Start Date End Date Marco Woods MD #2 [facility] [address] [place] [address] PCP - General Family Medicine 11/22/17 Kirsten Niño MD #[address] [address] Consulting Physician Endocrinology 07/17/22 Chin Burrows MD #[address] [address] Consulting Physician General Surgery 11/22/22 Michelle Mendes APRN, SENIOR HOUSEKEEPER #2 [facility] [address] [place] [address] Nurse Practitioner Advanced Practice Nurse 08/14/22 Chantelle Nix APRN, SENIOR HOUSEKEEPER #2 [place] [address] Nurse Practitioner Advanced Practice Nurse 02/19/24 Analia Meza MD #[address] [address] Consulting Physician Otolaryngology 05/11/25 documented as of this encounter
--- OUTSIDE RECORDS SUMMARY | 2025-05-19 10:27 | XMS_ITS | Encounter Summary ---
Author Organization [facility] Address [address] [place] [address] Phone Care Team Providers Care Vial Gauger Name Role Phone Marco Woods MD Primary Care Provider Kirsten Niño MD Unavailable Chin Burrows MD Unavailable Kelsea Root RN Unavailable Unavailable Michelle Mendes APRN, CSR RETAIL Unavailable Chantelle Nix APRN, CSR RETAIL Unavailable Analia Meza MD Unavailable [phone] Reason for Visit * Reason Comments Medication Refill Encounter Details Date Type Department Care Team (Late st Contact Info) Description 09/03/2022 Refill [facility] Oncology Services [address] [place] [address] Kirsten Niño MD #[address] [address] Medication Refill Social History Tobacco Use Types Packs/Day Years Used Date Smoking Tobacco: Never Smokeless Tobacco: Former Alcohol Use Standard Drinks/Week Comments Not Currently 0 (1 standard drink = 0.6 oz pur e alcohol) Sexually Active Control Partners Comments Not Currently Comments No Sex and Gender Information Value Date Recorded Sex Assigned at Female 11/22/2023 11:58 AM ANALYTICS ASSOCIATE Legal Sex Female 11:34 PM CDT Gender Identity Female 11/22/2023 11:58 AM ANALYTICS ASSOCIATE Sexual Orientation Not on file Occupation Industry Job Start Date Job End Date disabled Not on file Not on file Not on file COVID-19 Exposure Response Date Recorded In the last 10 days, have yo u been in contact with someone who was confirmed or suspected to have Coronavirus/COVID-19? No / Unsure 08/31/2022 8:58 AM ANALYTICS ASSOCIATE documented as of this encounter Plan of Treatment Upcoming Encounters Date Type Department Care Team (Late st Contact Info) Description 06/12/2025 11:00 AM CDT Office Visit [facility] - Family Medicine - [place] #[address] [place] [address] Marco Woods MD #2 [facility] [address] [place] [address] 07/01/2025 11:00 AM CDT Office Visit [facility] Medical [facility] - Ear, Nose & Throat - [place] #2 [place] [address] Analia Meza MD #2 [facility] [address] [place] [address] 07/03/2025 5:30 PM CDT [facility] [address] [place] [address] Analia Meza MD #[address] [phone] Discharge Disposition: Discharged to home or Selfcare 07/17/2025 10:30 AM CDT [facility] - Pulmonology & Sleep Medicine - [place] #[address] [place] [address] Michelle Mendes APRN, CSR RETAIL #2 [facility] [address] [place] [address] 08/11/2025 9:45 AM CDT [facility] Endocrinology - [place] #2 [place] [address] Kirsten Niño MD #[address] [address] documented as of this encounter Visit Diagnoses Not on filedocumented in this encounter Additional Health Concerns Infection Onset Date Last Indicated Resolved Time COVID - 19 11/20/2022 11/20/2022 11/24/2022 8:51 AM ANALYTICS ASSOCIATE COVID - 19 12/31/2022 12/31/2022 01/10/2023 12:1 8 AM CDT COVID - 19 Confirmed 12/31/2022 12/31/2022 023 12:17 AM CDT COVID - 19 06/01/2023 06/01/2023 06/01/2023 8:16 AM CDT COVID - 19 11/01/2023 11/01/2023 11/11/2023 12:1 6 AM ANALYTICS ASSOCIATE COVID - 19 06/25/2024 06/25/2024 06/25/2024 6:36 PM CDT Assessment Noted Time PHQ-9 Depression Total Score: 0 11/22/19 18 10:00 AM ANALYTICS ASSOCIATE documented as of this encounter Care Teams Vial Gauger Relationship Specialty Start Date End Date Marco Woods MD #2 [facility] [address] [place] [address] PCP - General Family Medicine 11/22/17 Kirsten Niño MD #2 [facility] [address] [place] [address] Consulting Physician Endocrinology 07/17/22 Chin Burrows MD #2 [facility] [address] [place] [address] Consulting Physician General Surgery 11/22/22 Kelsea Root, RN [place] Promotions Specialist 06/15/23 08/26/23 Michelle Mendes APRN, CSR RETAIL #2 [facility] [address] [place] [address] Nurse Practitioner Advanced Practice Nurse 08/14/22 Chantelle Nix APRN, CSR RETAIL #2 [place] [address] Nurse Practitioner Advanced Practice Nurse 02/19/24 Analia Meza MD #[address] [address] Consulting Physician Otolaryngology 05/11/25 documented as of this encounter
--- OUTSIDE RECORDS SUMMARY | 2025-05-19 10:27 | XMS_ITS | Encounter Summary ---
Author Organization [facility] Address [address] [place] [address] Phone Care Team Providers Care Meter Maker Name Role Phone Marco Woods MD Primary Care Provider Kirsten Niño MD Unavailable Chin Burrows MD Unavailable Kelsea Root RN Unavailable Unavailable Michelle Mendes APRN, SECURITY MESSENGER Unavailable Chantelle Nix APRN, SECURITY MESSENGER Unavailable Analia Meza MD Unavailable [phone] Reason for Visit * Reason Comments Medication Refill Encounter Details Date Type Department Care Team (Late st Contact Info) Description 05/27/2023 Refill [facility] #[address] [place] [address] Mirtha Steiner APRN, SECURITY MESSENGER #[address] [address] Medication Refill Social History Tobacco [...] Sex Assigned at Female 11/22/2023 11:58 AM INSURANCE EXAMINING CLERK Legal Sex Female 11:34 PM CDT Gender Identity Female 11/22/2023 11:58 AM INSURANCE EXAMINING CLERK Sexual Orientation Not on file Occupation [...] [place] 04/18/23 Office Visit Marco Woods MD [facility] [place] 04/03/23 Office Visit Marco Woods MD [facility] [place] 03/12/23 Office Visit Marco Woods MD [facility] [place] 03/05/23 Office Visit Mirtha Steiner APRN, SECURITY MESSENGER [facility] [place] 02/07/23 Office Visit Marco Woods MD [facility] [place] 01/23/23 Office Visit Rebecca Liu APRN, SECURITY MESSENGER [facility] [place] 12/05/22 Office Visit Marco Woods MD [facility] [place] 10/25/22 Office Visit Marco Woods MD [facility] [place] 08/29/22 Office Visit Ronald Shaffer APRN, SECURITY MESSENGER [facility] Showing recent visits within past 365 days and meeting all other requirements Future Appointments Date Type Provider Dept 08/02/23 Appointment Marco Woods MD [facility] [place] 08/07/23 Appoint[address] Marco Woods MD [facility] Showing future appointments within next 90 days and meeting all other requirements documented in this encounter Plan of Treatment Upcoming Encounters Date Type Department Care Team (Late st Contact Info) Description 06/12/2025 11:00 AM CDT Office Visit [facility] Medical [facility] - Family Medicine - [place] #2 [place] [address] Marco Woods MD #2 [facility] [address] [place] [address] 07/01/2025 11:00 AM CDT Office Visit [facility] Medical [facility] - Ear, Nose & Throat - [place] #2 [place] [address] Analia Meza MD #[address] [phone] 07/03/2025 5:30 PM CDT Appointment [facility] [address] [place] [address] Analia Meza MD #[address] [address] Discharge Disposition: Discharged to home or Selfcare 07/17/2025 10:30 AM CDT Office Visit [facility] Medical [facility] - Pulmonology & Sleep Medicine - [place] #2 [place] [address] Michelle Mendes APRN, SECURITY MESSENGER #2 [facility] [address] [place] [address] 08/11/2025 9:45 AM CDT Office [facility] - Endocr[facility] #[address] [place] [address] Kirsten Niño MD #[address] [address] [address] documented as of this encounter Visit Diagnoses Diagnosis Anxiety Anxiety state, unspecified documented in this encounter Additional Health Concerns Infection Onset Date Last Indicated Resolved Time COVID - 06/01/2023 06/01/2023 06/01/2023 8:16 AM CDT COVID - 11/01/2023 11/01/2023 11/11/2023 12:1 6 AM INSURANCE EXAMINING CLERK COVID - 06/25/2024 06/25/2024 06/25/2024 6:36 PM CDT Assessment Noted Time PHQ-9 Depression Total Score: 0 11/22/19 10:00 AM INSURANCE EXAMINING CLERK documented as of this encounter Care Teams Meter Maker Relationship Specialty Start Date End Date Marco Woods MD #[address] [address] [address] PCP - General Family Medicine 11/22/17 Kirsten Niño MD #[address] [address] Consulting Physician Endocrinology 07/17/22 Chin Burrows MD #[address] [address] Consulting Physician General Surgery 11/22/22 Kelsea Root RN [place] Home Improvement Advisor 06/15/23 08/26/23 Michelle Mendes APRN, SECURITY MESSENGER #2 [facility] [address] [place] [address] Nurse Practitioner Advanced Practice Nurse 08/14/22 Chantelle Nix APRN, DREW #2 [place] [address] Nurse Practitioner Advanced Practice Nurse 02/19/24 Analia Meza MD #2 [facility] [address] [place] [address] Consulting Physician Otolaryngology 05/11/25 documented as of this encounter
--- OUTSIDE RECORDS SUMMARY | 2025-05-19 10:27 | XMS_ITS | Encounter Summary ---
Author Organization [facility] Address [address] [place] [address] Phone Care Team Providers Care Golf Club Head Inspector Name Role Phone Marco Woods MD Primary Care Provider Kirsten Niño MD Unavailable Chin Burrows MD Unavailable Kelsea Root RN Unavailable Unavailable Michelle Mendes APRN, ACTIVITIES THERAPIST Unavailable Chantelle Nix PLEAT PATTERNMAKER, ACTIVITIES THERAPIST Unavailable Analia Meza MD Unavailable [phone] Encounter Details Date Type Department Care Team (Late st Contact Info) Description 01/03/2021 [facility] [place] [address] Denise Arenas, PLEAT PATTERNMAKER, ACTIVITIES THERAPIST [address] [facility] EM[facility]ENC[facility] [address] [place] [address] halfway use of drug (Primary Dx); Moderate depressed [...] Sex Assigned at Female 11/22/2023 11:58 AM RACE STEWARD Legal Sex Female 11:34 PM CDT Gender Identity Female 11/22/2023 11:58 AM RACE STEWARD Sexual Orientation Not on file Occupation Industry [...] Visit [facility] #2 [place] [address] Marco Woods MD #[address] [address] 07/01/2025 11:00 AM CDT Office Visit [facility] - [facility] Nose & Throat [facility] #2 [place] [address] Analia Meza MD #[address] [address] 07/03/2025 5:30 PM CDT [facility] [address] [place] [address] Analia Meza MD #[address] [address] Discharge Disposition: Discharged to home or Selfcare 07/17/2025 10:30 AM CDT [facility] - [place] #2 [place] [address] Michelle Mendes APRN, DREW #2 [facility] [address] [place] [address] 08/11/2025 9:45 AM CDT Office Visit [facility] - Endocrinology - [place] #2 [place] [address] Kirsten Niño MD #2 [facility] [address] [place] [address] documented as of this encounter Results * LITHIUM (01/05/2021 6:36 AM CDT) Pathologist [facility] LITHIUM 0.7 0.6 - 1.2 mmol/L 01/05/2021 10:29 AM CDT [facility] Comment:Resulted from [facility]. Blood Venipuncture / Unknown 01/05/2021 6:36 AM CDT 01/05/2021 7:09 AM CDT Denise Arenas APRN, DREW CHEMISTRY ORDERABLES Final Result [facility] #1 [place] [address] * (ABNORMAL) FOLIC ACID (FOLATE) (01/05/2021 6:36 AM CDT) FOLATE 19.6(H) 3.1 - 17.5 ng/mL 01/05/2021 8:08 AM CDT [facility] IS THE PATIENT REQUIRED TO BE FASTING? No 01/05/2021 8:08 AM CDT [facility] Blood Venipuncture / Unknown 01/05/2021 6:36 AM CDT 01/05/2021 7:09 AM CDT Denise Arenas APRN, ACTIVITIES THERAPIST CHEMISTRY ORDERABLES Final Result Performing Organization Address City/[facility]/ZIP Co de Phone Number [facility] #1 [place] [address] * THYROXINE (T4) FREE (01/05/2021 6:36 AM CDT) T4 FREE 1.0 0.9 - 1.7 ng/dL 01/05/2021 7:56 AM CDT [facility] Blood Venipuncture / Unknown 01/05/2021 6:36 AM CDT 01/05/2021 7:09 AM CDT Denise Arenas APRN, ACTIVITIES THERAPIST CHEMISTRY ORDERABLES Final Result Performing Organization Address City/[facility]/ZIP Co de Phone Number [facility] #[address] [place] [address] * (ABNORMAL) LIPID PANEL (01/05/2021 6:36 AM CDT) CHOLESTEROL 214(H) <=200 mg/dL 01/05/2021 7:56 AM CDT [facility] TRIGLYCERIDES 144 <150 mg/dL 01/05/2021 7:56 AM CDT [facility] HDL CHOLESTEROL 73.5 >40 mg/dL 7:56 AM CDT [facility] LDL 112 5 - 130 mg/dL 01/05/2021 7:56 AM CDT [facility] VLDL 29 5 - 55 mg/dL 01/05/2021 7:56 AM CDT [facility] CHOL/HDL RATIO 2.9 0.0 - 4.4 01/05/2021 7:56 AM CDT [facility] NON-HDL CHOLESTEROL 140.5(H) <130 mg/dL 01/05/2021 7:56 AM CDT [facility] IS THE PATIENT REQUIRED TO BE FASTING? No 01/05/2021 7:56 AM CDT [facility] Blood Venipuncture / Unknown 01/05/2021 6:36 AM CDT 01/05/2021 7:09 AM CDT Denise Subramaniany PLEAT PATTERNMAKER, ACTIVITIES THERAPIST CHEMISTRY ORDERABLES Final Result [facility] #1 [place] [address] * HEMOGLOBIN A1C W/ ESTIMATED GLUCOSE (01/05/2021 6:36 AM CDT) HGB-A1C 5.1 4.0 - 6.0 % 01/05/2021 7:24 AM CDT [facility] Est Average Glucose 99.7 mg/dL 01/05/2021 7:24 AM CDT [facility] Blood Venipuncture / Unknown 01/05/2021 6:36 AM CDT 01/05/2021 7:09 AM CDT Narrative [facility] - 01/05/2021 7:24 AM CDT HEMOGLOBIN A1C: DIABETIC PATIENTS: WELL-CONTROLLED: 6.2 - 7.0 INTERMEDIATE WELL-CONTROLLED: 7.0 - 9.0 POORLY-CONTROLLED: >9.0 us Denise Jameson Thery PLEAT PATTERNMAKER, ACTIVITIES THERAPIST CHEMISTRY ORDERABLES Final Result [facility] #1 [place] [address] documented in this encounter 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 for long-term [...] - 19 11/20/2022 11/20/2022 11/24/2022 8:51 AM RACE STEWARD COVID - 19 12/31/2022 12/31/2022 01/10/2023 12:1 8 AM CDT COVID - 19 Confirmed 12/31/2022 12/31/2022 023 12:17 AM CDT COVID - 19 06/01/2023 06/01/2023 06/01/2023 8:16 AM CDT COVID - 19 11/01/2023 11/01/2023 11/11/2023 12:1 6 AM RACE STEWARD COVID - 19 06/25/2024 06/25/2024 06/25/2024 6:36 PM CDT Assessment Noted Time PHQ-9 Depression Total Score: 0 11/22/19 10:00 AM RACE STEWARD documented as of this encounter Care Teams Golf Club Head Inspector Relationship Specialty Start Date End Date Marco Woods MD #[address] [address] PCP - General Family Medicine 11/22/17 Kirsten Niño MD #[address] [address] Consulting Physician Endocrinology 07/17/22 Chin Burrows MD #[address] [address] Consulting Physician General Surgery 11/22/22 Kelsea Root RN [place] Solution Architect 06/15/23 08/26/23 Michelle Mendes APRN, ACTIVITIES THERAPIST #[address] [address] Nurse Practitioner Advanced Practice Nurse 08/14/22 Chantelle Nix APRN, ACTIVITIES THERAPIST #2 [place] [address] Nurse Practitioner Advanced Practice Nurse 02/19/24 Analia Meza MD #[address] [address] Consulting Physician Otolaryngology 05/11/25 documented as of this encounter
--- OUTSIDE RECORDS SUMMARY | 2025-05-19 10:27 | XMS_ITS | Encounter Summary ---
Author Organization [facility] Address [address] [place] [address] Phone Care Team Providers Care Foxing Painter Name Role Phone Marco Woods MD Primary Care Provider Kirsten Niño MD Unavailable Chin Burrows MD Unavailable Kelsea Root RN Unavailable Unavailable Michelle Mendes APRN, FLOORHAND Unavailable [phone] Chantelle Nix APRN, FLOORHAND Unavailable Analia Meza MD Unavailable [phone] Reason for Visit * Reason Comments Medication Refill Encounter Details Date Type Department Care Team (Late st Contact Info) Description 11/27/2020 Refill [facility] [address] [place] [address] Marco Woods MD #[address] [address] [address] Medication Refill Social History Tobacco Use Types Packs/Day Years Used Date Smoking Tobacco: Never Smokeless Tobacco: Former Alcohol Use Standard Drinks/Week Comments Not Currently 0 (1 standard drink = 0.6 oz pur e alcohol) Sexually Active Control Partners Comments Not Currently Comments No Sex and Gender Information Value Date Recorded Sex Assigned at Female 11/22/2023 11:58 AM WASTE COLLECTOR Legal Sex Female 11:34 PM CDT Gender Identity Female 11/22/2023 11:58 AM WASTE COLLECTOR Sexual Orientation Not on file Occupation Industry Job Start Date Job End Date disabled Not on file Not on file Not on file COVID-19 Exposure Response Date Recorded In the last month, have you been in contact with someone who was confirmed or suspected to have Coronavirus / COVID-19? No / Unsure 11/09/2020 1:41 PM WASTE COLLECTOR documented as of this encounter Miscellaneous Notes * Telephone Encounter - Marco Woods MD - 11/29/2020 6:52 AM CST Prescription approved. Please call in E COLLECTOR * Telephone Encounter - Reina Paulson RN [...] severity, unspecified whether complicated, unspecified whether persistent [facility] - Family Medicine - Marco Menchaca MD 2 months ago Asthma, unspecified asthma severity, unspecified whether complicated, unspecified whether persistent [facility] Medical [facility] Marco Santacruz MD 5 months ago Preop examination [facility] Marco Santacruz MD 7 months ago Essential hypertension [facility] Medical [facility] Marco Santacruz MD 11 months ago Essential hypertension [facility] Medical [facility] Marco Santacruz MD Upcoming Appointments Future Appointments In [address] Mammography, [facility] In 3 Kirsten Mcclure MD [facility] Group - Endocrinology - [facility] In 1 month Adrien Montoya MD [facility] In 2 months Marco Woods MD [facility] Medicine [facility] PERFORMANCE MANAGER - Recent and Past Visits Recent Visits Date Type Provider Dept 11/09/20 Office Visit Marco Woods MD [facility] [place] 09/06/20 Office [facility] [place] 06/09/20 Office Visit [facility] [place] 04/27/20 Office Visit [facility] [place] 12/24/19 Office Visit [facility] [place] 11/12/19 Office Visit Mirtha Steiner APN, FLOORHAND [facility] 10/24/19 Office Visit Ronald Shaffer APN, FLOORHAND [facility] Showing recent visits within past 460 days with a meds authorizing provider and meeting all other requirements Future Appointments Date Type Provider Dept 02/07/21 Appointment Marco Woods MD [facility] Showing future appointments within next 90 days with a meds authorizing provider and meeting all other requirements E COLLECTOR documented in this encounter Plan of Treatment Upcoming Encounters Date Type Department Care Team (Late st Contact Info) Description 06/12/2025 11:00 AM CDT Office Visit [facility] - [place] #[address] [place] [address] Marco Woods MD #2 [place] [facility] [address] [place] [address] 07/01/2025 11:00 AM CDT Office Visit [facility] - Ear, Nose & Throat - [place] #2 [facility] [place] [address] Analia Meza MD #2 [facility] [address] [place] [address] 07/03/2025 5:30 PM CD[facility] [address] [place] [address] Analia Meza MD #2 [facility] [address] [place] [address] Discharge Disposition: Discharged to home or Selfcare 07/17/2025 10:30 AM CDT Office Visit [facility] Medical [facility] - Pulmonology & Sleep Medicine - [place] #2 [place] [address] Michelle Mendes APRN, FLOORHAND #2 [facility] [address] [place] [address] 08/11/2025 9:45 AM CDT Office Visit [facility] - Endocrinology - [place] #2 [place] [address] Kirsten Niño MD #[address] [address] documented as of this encounter Visit Diagnoses Not on filedocumented in this encounter Additional Health Concerns Infection Onset Date Last Indicated Resolved Time COVID - 19 06/29/2022 06/29/2022 07/09/2022 12:1 6 AM CDT COVID - 19 11/20/2022 11/20/2022 11/24/2022 8:51 AM WASTE COLLECTOR COVID - 19 12/31/2022 12/31/2022 01/10/2023 12:1 8 AM CDT COVID - 19 Confirmed 12/31/2022 12/31/2022 023 12:17 AM CDT COVID - 19 06/01/2023 06/01/2023 06/01/2023 8:16 AM CDT COVID - 19 11/01/2023 11/01/2023 11/11/2023 12:1 6 AM WASTE COLLECTOR COVID - 19 06/25/2024 06/25/2024 06/25/2024 6:36 PM CDT Assessment Noted Time PHQ-9 Depression Total Score: 0 11/22/19 10:00 AM WASTE COLLECTOR documented as of this encounter Care Teams Foxing Painter Relationship Specialty Start Date End Date Marco Woods MD #2 [facility] [address] [place] [address] PCP - General Family Medicine 11/22/17 Kirsten Niño MD #[address] [address] Consulting Physician Endocrinology 07/17/22 Chin Burrows MD #[address] [address] Consulting Physician General Surgery 11/22/22 Kelsea Root RN [place] 06/15/23 08/26/23 Michelle Mendes APRN, FLOORHAND #2 [facility] [address] [place] [address] Nurse Practitioner Advanced Practice Nurse 08/14/22 Chantelle Nix APRN, FLOORHAND #2 [place] [address] Nurse Practitioner Advanced Practice Nurse 02/19/24 Analia Meza MD #[address] [address] Consulting Physician Otolaryngology 05/11/25 documented as of this encounter
--- OUTSIDE RECORDS SUMMARY | 2025-05-19 10:27 | XMS_ITS | Encounter Summary ---
Author Organization [facility] Address [address] [place] [address] Phone Care Team Providers Care Mail Rider Name Role Phone Marco Woods MD Primary Care Provider [phone] Kirsten Niño MD Unavailable Chin Burrows MD Unavailable [phone] Kelsea Root RN Unavailable Unavailable Michelle Mendes APRN, NEON ELECTRICIAN Unavailable [phone] Chantelle Nix APRN, NEON ELECTRICIAN Unavailable Analia Meza MD Unavailable [phone] Reason for Visit * Reason Comments Medication Refill Encounter Details Date Type Department Care Team (Late st Contact Info) Description 09/22/2022 Refill [facility] #[address] [place] [phone] Marco Woods MD #[address] [address] Medication Refill Social History Tobacco Use Types Packs/Day Years Used Date Smoking Tobacco: Never Smokeless Tobacco: Former Alcohol Use Standard Drinks/Week Comments Not Currently 0 (1 standard drink = 0.6 oz pur e alcohol) Sexually Active Control Partners Comments Not Currently Comments No Sex and Gender Information Value Date Recorded Sex Assigned at Female 11/22/2023 11:58 AM COMPUTER CONSOLE OPERATOR Legal Sex Female 11:34 PM CDT Gender Identity Female 11/22/2023 11:58 AM COMPUTER CONSOLE OPERATOR Sexual Orientation Not on file Occupation Industry Job Start Date Job End Date disabled Not on file Not on file Not on file COVID-19 Exposure Response Date Recorded In the last 10 days, have yo u been in contact with someone who was confirmed or suspected to have Coronavirus/COVID-19? No / Unsure 09/16/2022 6:11 AM COMPUTER CONSOLE OPERATOR documented as of this encounter Miscellaneous [...] Dept 08/29/22 Office Visit Ronald Shaffer APRN, NEON ELECTRICIAN [facility] 07/12/22 Office Visit Jany Hernandez, [facility] 06/23/22 Office Visit Marco Woods MD [facility] [place] 05/19/22 Office Visit Marco Woods MD [facility] [place] 01/10/22 Office Visit Marco Woods MD [facility] [place] 10/04/21 Office Visit [facility] MD [facility] Show[facility] recent visits within past 365 days and meeting all other requirements Future Appointments Date Type Provider Dept 10/25/22 Appointment Marco Woods MD [facility] Showing future appointments within next [...] Type Provider Dept 08/29/22 Office Visit Ronald Shaffer, CHAMBER WORKER, NEON ELECTRICIAN [facility] 07/12/22 Office Visit Jany Hernandez, PAC [facility] 06/23/22 Office Visit Marco Woods MD [facility] [place] 05/19/22 Office Visit Marco Woods MD [facility] [place] 01/10/22 Office Visit Marco Woods MD [facility] Showing recent visits within past 270 days and meeting all other requirements Future Appointments Date Type Provider Dept 10/25/22 Appointment Marco Woods MD [facility] Showing future appointments within next 90 days and meeting all other requirements Passed - Blood pressure on record in past 12 months Clinician-entered: BP Readings from Last 3 Encounters: 09/12/22 140/84 08/29/22 134/70 08/28/22 118/78 Patient-entered: No data recorded UTER CONSOLE OPERATOR documented in this encounter Plan of Treatment Upcoming Encounters Date Type Department Care Team (Late st Contact Info) Description 06/12/2025 11:00 AM CDT Office [facility] - Family Medicine - [place] #2 [place] [address] Marco Woods MD #[address] [address] 07/01/2025 11:00 AM CDT Office Visit [facility] - Ear, Nose & Throat - [place] #2 [place] [address] Analia Meza MD #[address] [address] 07/03/2025 5:30 PM CDT Appointment [facility] [address] [place] [address] Analia Meza MD #[address] [address] Discharge Disposition: Discharged to home or Selfcare 07/17/2025 10:30 AM CDT [facility] - Pulmonology & Sleep Medicine - [place] #2 [place] [address] Michelle Mendes APRN, NEON ELECTRICIAN #2 [facility] [address] [place] [address] 08/11/2025 9:45 AM CDT Office Visit [facility] - Endocrinology - [place] #2 [place] [address] Kirsten Niño MD #2 [facility] [address] [place] [address] documented as of this encounter Visit Diagnoses Diagnosis Organic periodic limb movement sleep disorder documented in this encounter Additional Health Concerns Infection Onset Date Last Indicated Resolved Time COVID - 19 11/20/2022 11/20/2022 11/24/2022 8:51 AM COMPUTER CONSOLE OPERATOR COVID - 19 12/31/2022 12/31/2022 01/10/2023 12:1 8 AM CDT COVID - 19 Confirmed 12/31/2022 12/31/2022 023 12:17 AM CDT COVID - 19 06/01/2023 06/01/2023 06/01/2023 8:16 AM CDT COVID - 19 11/01/2023 11/01/2023 11/11/2023 12:1 6 AM COMPUTER CONSOLE OPERATOR COVID - 19 06/25/2024 06/25/2024 06/25/2024 6:36 PM CDT Assessment Noted Time PHQ-9 Depression Total Score: 0 11/22/19 18 10:00 AM COMPUTER CONSOLE OPERATOR documented as of this encounter Care Teams Mail Rider Relationship Specialty Start Date End Date Marco Woods MD #2 [facility] [address] [place] [address] PCP - General Family Medicine 11/22/17 Kirsten Niño MD #[address] [phone] Consulting Physician Endocrinology 07/17/22 Chin Burrows MD #[address] [address] Consulting Physician General Surgery 11/22/22 Kelsea Root RN [place] Clothing Busheler 06/15/23 08/26/23 Michelle Mendes APRN, NEON ELECTRICIAN #[address] [address] Nurse Practitioner Advanced Practice Nurse 08/14/22 Chantelle Nix APRN, NEON ELECTRICIAN #2 [place] [address] Nurse Practitioner Advanced Practice Nurse 02/19/24 Analia Meza MD #[address] [address] Consulting Physician Otolaryngology 05/11/25 documented as of this encounter
--- OUTSIDE RECORDS SUMMARY | 2025-05-19 10:27 | XMS_ITS | Encounter Summary ---
Author Organization [facility] Address [address] [place] [address] Phone Care Team Providers Care Wireless Field Technician Name Role Phone Marco Woods MD Primary Care Provider [phone] Kirsten Niño MD Unavailable Chin Burrows MD Unavailable [phone] Kelsea Root RN Unavailable Unavailable Michelle Mendes APRN, NASCAR RACER Unavailable Chantelle Nix APRN, NASCAR RACER Unavailable Analia Meza MD Unavailable [phone] Reason for Visit * Reason Comments Medication Refill Encounter Details Date Type Department Care Team (Late st Contact Info) Description 05/27/2023 Refill [facility] #[address] [place] [address] Marco Woods MD #[address] [address] Medication Refill Social History Tobacco Use Types [...] Assigned at Female 11/22/2023 11:58 AM METAL FABRICATING INSPECTOR Legal Sex Female 11:34 PM CDT Gender Identity Female 11/22/2023 11:58 AM METAL FABRICATING INSPECTOR Sexual Orientation Not on file Occupation [...] [place] 03/12/23 Office Visit Marco Woods MD [facility] 03/05/23 Office Visit Mirtha Steiner APRN, NASCAR RACER [facility] [place] 02/07/23 Office Visit Marco Woods MD [facility] [place] 01/23/23 Office Visit Rebecca Liu APRN, NASCAR RACER [facility] [place] 12/05/22 Office Visit Marco Woods MD [facility] 10/25/22 Office Visit Marco Woods MD [facility] [place] 08/29/22 Office Visit Ronald Shaffer APRN, NASCAR RACER [facility] Showing recent visits within past 365 days and meeting all other requirements Future Appointments Date Type Provider Dept 08/02/23 Appointment [facility] 08/07[facility]23 Appointment Marco Woods MD [facility] Showing future appointments within next 90 days and meeting all other requirements documented in this encounter Plan of Treatment Upcoming Encounters Date Type Department Care Team (Late st Contact Info) Description 06/12/2025 11:00 AM CDT Office Visit [facility] Medical [facility] - Family Medicine - [place] #2 [place] [address] Marco Woods MD #2 [facility] [address] [place] [address] 07/01/2025 11:00 AM CDT Office Visit [facility] Medical [facility] - Ear, Nose & Throat - [place] #2 [place] [address] Analia Meza MD #[address] [phone] 07/03/2025 5:30 PM CDT [facility] [address] [place] [phone] Analia Meza MD #2 [facility] [address] [place] [address] Discharge Disposition: Discharged to home or Selfcare 07/17/2025 10:30 AM CDT Office Visit [facility] Medical [facility] - Pulmonology & Sleep Medicine - [place] #2 [place] [address] Michelle Mendes APRN, NASCAR RACER #2 [facility] [address] [place] [address] 08/11/2025 9:45 AM CDT Office Visit [facility] - Endocrinology [facility] #2 [place] [address] Kirsten Niño MD #[address] [address] documented as of this encounter Visit Diagnoses Diagnosis Primary insomnia Persistent disorder of initiating or maintaining sleep documented in this encounter Additional Health Concerns Infection Onset Date Last Indicated Resolved Time COVID - 06/01/2023 06/01/2023 06/01/2023 8:16 AM CDT COVID - 11/01/2023 11/01/2023 11/11/2023 12:1 6 AM METAL FABRICATING INSPECTOR COVID - 06/25/2024 06/25/2024 06/25/2024 6:36 PM CDT Assessment Noted Time PHQ-9 Depression Total Score: 0 11/22/19 10:00 AM METAL FABRICATING INSPECTOR documented as of this encounter Care Teams Wireless Field Technician Relationship Specialty Start Date End Date Marco Woods MD #2 [facility] [address] [place] [address] PCP - General Family Medicine 11/22/17 Kirsten Niño MD #[address] [address] Consulting Physician Endocrinology 07/17/22 Chin Burrows MD #[address] [address] Consulting Physician General Surgery 11/22/22 Kelsea Root RN [place] Base Loader 06/15/23 08/26/23 Michelle Mendes APRN, NASCAR RACER #2 [facility] [address] [place] [address] Nurse Practitioner Advanced Practice Nurse 08/14/22 Chantelle Nix APRN, NASCAR RACER #2 [place] [address] Nurse Practitioner Advanced Practice Nurse 02/19/24 Analia Meza MD #2 [facility] [address] [place] [address] Consulting Physician Otolaryngology 05/11/25 documented as of this encounter
--- OUTSIDE RECORDS SUMMARY | 2025-05-19 10:27 | XMS_ITS | Encounter Summary ---
Author Organization [facility] Address [address] [place] [address] Phone Care Team Providers Care Solar Manufacturer'S Representative Name Role Phone Marco Woods MD Primary Care Provider Kirsten Niño MD Unavailable Chin Burrows MD Unavailable Kelsea Root RN Unavailable Unavailable Michelle Mendes APRN, BUDGET ACCOUNTANT Unavailable Chantelle Nix APRN, BUDGET ACCOUNTANT Unavailable Analia Meza MD Unavailable [phone] Reason for Visit * Reason Comments Medication Refill Encounter Details Date Type Department Care Team (Late st Contact Info) Description 07/16/2023 Refill [facility] #[address] [place] [address] Marco Woods MD [address] [address] Medication Refill Social History Tobacco Use Types [...] Assigned at Female 11/22/2023 11:58 AM FINANCE BROKER Legal Sex Female 11:34 PM CDT Gender Identity Female 11/22/2023 11:58 AM FINANCE BROKER Sexual Orientation Not on file Occupation Industry [...] [facility] - [place] #2 [place] [address] Marco Woods MD #2 [facility] [address] [place] [address] 07/01/2025 11:00 AM CDT Office Visit [facility] - [facility], Nose & Throat - [place] #2 [place] [address] Analia Meza MD #2 [facility] [address] [place] [address] 07/03/2025 5:30 PM CDT [facility] [address] [place] [address] Analia Meza MD #2 [facility] [address] [place] [address] Discharge Disposition: Discharged to home or Selfcare 07/17/2025 10:30 AM CDT Office Visit [facility] - Pulmonology & Sleep Medicine - [place] #2 [place] [address] Michelle Mendes APRN, BUDGET ACCOUNTANT #2 [facility] [address] [place] [address] 08/11/2025 9:45 AM CDT Office Visit [facility] Medical [facility] - Endocrinology - [place] #2 [place] [address] Kirsten Niño MD #[address] [address] documented as of this encounter Visit Diagnoses Not on filedocumented in this encounter Additional Health Concerns Infection Onset Date Last Indicated Resolved Time COVID - 19 11/01/2023 11/01/2023 11/11/2023 12:1 6 AM FINANCE BROKER COVID - 19 06/25/2024 06/25/2024 06/25/2024 6:36 PM CDT Assessment Noted Time PHQ-9 Depression Total Score: 0 11/22/19 10:00 AM FINANCE BROKER documented as of this encounter Care Teams Solar Manufacturer'S Representative Relationship Specialty Start Date End Date Marco Woods MD #2 [facility] [address] [place] [address] PCP - General Family Medicine 11/22/17 Kirsten Niño MD #2 [facility] [address] [place] [address] Consulting Physician Endocrinology 07/17/22 Chin Burrows MD #2 [facility] [address] [place] [address] Consulting Physician General Surgery 11/22/22 Kelsea Root RN [place] Hide Splitter 06/15/23 08/26/23 Michelle Mendes APRN, BUDGET ACCOUNTANT #2 [facility] [address] [place] [address] Nurse Practitioner Advanced Practice Nurse 08/14/22 Chantelle Nix APRN, BUDGET ACCOUNTANT #2 [place] [address] Nurse Practitioner Advanced Practice Nurse 02/19/24 Analia Meza MD #[address] [address] Consulting Physician Otolaryngology 05/11/25 documented as of this encounter
--- OUTSIDE RECORDS SUMMARY | 2025-05-19 10:27 | XMS_ITS | Encounter Summary ---
Author Organization [facility] Address [address] [place] [address] Phone Care Team Providers Care Bank Cashier Name Role Phone Marco Woods MD Primary Care Provider Kirsten Niño MD Unavailable Chin Burrows MD Unavailable Kelsea Root RN Unavailable Unavailable Michelle Mendes APRN, HATCHERY LABORER Unavailable Chantelle Nix APRN, HATCHERY LABORER Unavailable Analia Meza MD Unavailable [phone] Encounter Details Date Type Department Care Team (Late st Contact Info) Description 06/05/2023 Telephone [facility] Med Surg [address] [place] [address] Sister Elisabeth Gonzalez RN [place] Social History Tobacco Use Types [...] Sex Assigned at Female 11/22/2023 11:58 AM PASSENGER CONDUCTOR Legal Sex Female 11:34 PM CDT Gender Identity Female 11/22/2023 11:58 AM PASSENGER CONDUCTOR Sexual Orientation Not on file Occupation [...] [facility] - [place] #2 [place] [address] Marco Woods MD #2 [facility] [address] [place] [address] 07/01/2025 11:00 AM CDT Office Visit [facility] - [facility], Nose & Throat - [place] #2 [place] [address] Analia Meza MD #[address] [phone] 07/03/2025 5:30 PM CD[facility] [address] [place] [address] Analia Meza MD #[address] [address] Discharge Disposition: Discharged to home or Selfcare 07/17/2025 10:30 AM CDT Office Visit [facility] Medical [facility] - Pulmonology & Sleep Medicine - [place] #2 [place] [address] Michelle Mendes APRN, HATCHERY LABORER #2 [facility] [address] [place] [address] 08/11/2025 9:45 AM CDT Office Visit [facility] Medical [facility] - Endocrinology - [place] #2 [place] [address] Kirsten Niño MD #2 [facility] [address] [place] [address] documented as of this encounter Visit Diagnoses Not on filedocumented in this encounter Additional Health Concerns Infection Onset Date Last Indicated Resolved Time COVID - 19 11/01/2023 11/01/2023 11/11/2023 12:1 6 AM PASSENGER CONDUCTOR COVID - 19 06/25/2024 06/25/2024 06/25/2024 6:36 PM CDT Assessment Noted Time PHQ-9 Depression Total Score: 0 11/22/19 18 10:00 AM PASSENGER CONDUCTOR documented as of this encounter Care Teams Bank Cashier Relationship Specialty Start Date End Date Marco Woods MD #2 [facility] [address] [place] [address] PCP - General Family Medicine 11/22/17 Kirsten Niño MD #2 [facility] [address] [place] [address] Consulting Physician Endocrinology 07/17/22 Chin Burrows MD #2 [facility] [address] [place] [address] Consulting Physician General Surgery 11/22/22 Kelsea Root, JUWAN [place] Airline Reservation Agent 06/15/23 08/26/23 Michelle Mendes APRN, HATCHERY LABORER #2 [facility] [address] [place] [address] Nurse Practitioner Advanced Practice Nurse 08/14/22 Chantelle Nix APRN, HATCHERY LABORER #2 [place] [address] Nurse Practitioner Advanced Practice Nurse 02/19/24 Analia Meza MD #2 [facility] [address] [address] Consulting Physician Otolaryngology 05/11/25 documented as of this encounter
--- OUTSIDE RECORDS SUMMARY | 2025-05-19 10:27 | XMS_ITS | Encounter Summary ---
Author Organization [facility] Address [address] [place] [address] Phone Care Team Providers Care Cryptologic Linguist Name Role Phone Marco Woods MD Primary Care Provider Kirsten Niño MD Unavailable Chin Burrows MD Unavailable [phone] Kelsea Root RN Unavailable Unavailable Michelle Mendes APRN, DEPUTY DIRECTOR OF NURSING Unavailable Chantelle Nix APRN, DEPUTY DIRECTOR OF NURSING Unavailable Analia Meza MD Unavailable [phone] Reason for Visit * Reason Onset Date Comments Medication Management 07/24/2022 Encounter Details Date Type Department Care Team (Late st Contact Info) Description 07/24/2022 [facility] [address] [place] [address] Marco Woods MD #2 [place] [address] Medication Management Social History Tobacco Use Types Packs/Day Years Used Date Smoking Tobacco: Never Smokeless Tobacco: Former Alcohol Use Standard Drinks/Week Comments Not Currently 0 (1 standard drink = 0.6 oz pur e alcohol) Sexually Active Control Partners Comments Not Currently Comments No Sex and Gender Information Value Date Recorded Sex Assigned at Female 11/22/2023 11:58 AM FAMILY DEVELOPMENT SPECIALIST Legal Sex Female 11:34 PM CDT Gender Identity Female 11/22/2023 11:58 AM FAMILY DEVELOPMENT SPECIALIST Sexual Orientation Not on file Occupation [...] 11:00 AM CDT Office Visit [facility] - Family Medicine - [place] #2 [place] [address] Marco Woods MD #2 [facility] [address] [place] [address] 07/01/2025 11:00 AM CDT Office Visit [facility] Medical [facility] - Ear, Nose & Throat - [place] #2 [place] [address] Analia Meza MD #[address] [phone] 07/03/2025 5:30 PM CD[facility] [address] [place] [address] Analia Meza MD #[address] [address] Discharge Disposition: Discharged to home or Selfcare 07/17/2025 10:30 AM CDT Office Visit [facility] Medical [facility] - Pulmonology & Sleep Medicine - [place] #2 [place] [address] Michelle Mendes APRN, DEPUTY DIRECTOR OF NURSING #2 [facility] [address] [place] [address] 08/11/2025 9:45 AM CDT Office Visit [facility] - Endocr[facility] - [place] #[address] [place] [address] Kirsten Niño MD #2 [facility] [address] [place] [address] documented as of this encounter Visit Diagnoses Not on filedocumented in this encounter Additional Health Concerns Infection Onset Date Last Indicated Resolved Time COVID - 19 11/20/2022 11/20/2022 11/24/2022 8:51 AM FAMILY DEVELOPMENT SPECIALIST COVID - 19 12/31/2022 12/31/2022 01/10/2023 12:1 8 AM CDT COVID - 19 Confirmed 12/31/2022 12/31/2022 023 12:17 AM CDT COVID - 19 06/01/2023 06/01/2023 06/01/2023 8:16 AM CDT COVID - 19 11/01/2023 11/01/2023 11/11/2023 12:1 6 AM FAMILY DEVELOPMENT SPECIALIST COVID - 19 06/25/2024 06/25/2024 06/25/2024 6:36 PM CDT Assessment Noted Time PHQ-9 Depression Total Score: 0 11/22/19 18 10:00 AM FAMILY DEVELOPMENT SPECIALIST documented as of this encounter Care Teams Cryptologic Linguist Relationship Specialty Start Date End Date Marco Woods MD #2 [facility] [address] [place] [address] PCP - General Family Medicine 11/22/17 Kirsten Niño MD #2 [facility] [facility] [address] [place] [address] Consulting Physician Endocrinology 07/17/22 Chin Burrows MD #2 [facility] [address] [place] [address] Consulting Physician General Surgery 11/22/22 Kelsea Root, RN [place] Chemical Compounder 06/15/23 08/26/23 Michelle Mendes APRN, DEPUTY DIRECTOR OF NURSING #2 [facility] [address] [place] [address] Nurse Practitioner Advanced Practice Nurse 08/14/22 Chantelle Nix APRN, DEPUTY DIRECTOR OF NURSING #2 [place] [address] Nurse Practitioner Advanced Practice Nurse 02/19/24 Analia Meza MD #[address] [address] Consulting Physician Otolaryngology 05/11/25 documented as of this encounter
--- NOTE | 2025-05-19 10:30 | ECG_ITS ---
Test Date: 2025-05-19 10:43:52 Measurements Intervals Cranks Rate: 60 P: 26 CA: 134 QRS: -43 QRSD: 124 T: -4 QT: 448 QTc: 448 Interpretive Statements SINUS RHYTHM RIGHT BUNDLE BRANCH BLOCK Electronically Signed On 05-19-2025 17:27:24 CDT by Pérez Pryor D.O
[2025-05-19 11:23] LABS: Anion Gap 8 mmol/L (4-12); Blood Urea Nitrogen 9 mg/dL (7-17); Calcium 8.7 mg/dL (8.4-10.2); Carbon Dioxide 21 mmol/L (22-30); Chloride 107 mmol/L (98-107); Estimated Glomerular Filt Rate > 60; Glucose 115 mg/dL (65-110); Potassium 3.2 mmol/L (3.4-5.0); Sodium 136 mmol/L (137-145)
== END 2025-05-19 10:12 | disposition home or self-care (01) ==
PROVIDERS: PCP Internal Medicine; Visit Provider Anesthesiology
DX: E78.5 Hyperlipidemia, unspecified (principal); I10 Essential (primary) hypertension; Z01.818 Encounter for other preprocedural examination
CPT/HCPCS: 36415; 80048; 93005

== ENCOUNTER 2025-05-28 08:05 | Day surgery (SDC) | payer MEDICARE, MEDICAID, SELFPAY ==
[2025-05-08 10:04] VITALS: BMI 36.0
--- NOTE | 2025-05-28 07:02 | PM.HPGS ---
History of Present Illness History of Present Illness Chief complaint: Right Carpal Tunnel Syndrome Narrative: Patient seen and examined in pre-operative holding area. No interval change in medical history or symptoms. Patient recalls previous discussion of benefits and alternatives to procedure. Continues to desire to proceed with right endoscopic possible open carpal tunnel release. Reviewed procedure, post-op expectations and risks including but not limited to bleeding, infection, injury to tendon/nerve/vessel, decreased hand function, stiffness, RSD, no change or worsening of symptoms. I discussed the possible use of assistants and their participation in the case. Patient stated understanding and signed the consent form wishing to proceed. Review of Systems Review of Systems: All systems reviewed & are unremarkable except as noted in HPI and below PMFSH Past Medical History Medical History Retained food in stomach Elevated fecal calprotectin Chronic Helicobacter pylori gastritis Early satiety Colon polyps Fatty liver History of stomach ulcers Gastric polyp Constipation Gastroparesis Abdominal distension Nausea and vomiting Abdominal bloating Social History Social History Smoking status: Never smoker Second hand tobacco smoke exposure: Yes Alcohol intake: never Substance use: never Substance use type: does not use Living arrangements: with family Spiritual care concerns: No Meds Home Medications and Allergies Home Medications ?Medication ?Instructions ?Recorded ?Confirmed ?Type atorvastatin 20 mg tablet (Lipitor) 20 mg PO DAILY 11/27/24 05/28/25 History hydroxyzine HCl 25 mg tablet 25 mg PO BID 11/27/24 05/28/25 History ropinirole 2 mg tablet 2 mg PO TID 11/27/24 05/28/25 History amlodipine 5 mg tablet 5 mg PO DAILY 12/09/24 05/28/25 History olanzapine 10 mg tablet 10 mg PO HS 12/09/24 05/28/25 History tramadol 50 mg tablet 50 mg PO TID PRN pain 12/09/24 05/28/25 History linaclotide 145 mcg capsule 290 mcg (2 x 145 mcg) PO DAILY 1 01/13/25 05/28/25 Rx (Linzess) month #60 caps buspirone 5 mg tablet 5 mg PO TID 1 month #90 tabs 03/26/25 05/28/25 Rx levothyroxine 112 mcg tablet 137 mcg PO DAILY 03/26/25 05/28/25 History (Synthroid) acetaminophen 500 mg capsule 500 mg PO Q8H PRN pain 05/08/25 05/28/25 History furosemide 20 mg tablet 20 mg PO DIRECTED 05/08/25 05/28/25 History lurasidone 20 mg tablet 20 mg PO HS 05/08/25 05/28/25 History omeprazole 40 mg capsule,delayed 40 mg PO BID 05/08/25 05/28/25 History release ondansetron 4 mg disintegrating 4 mg PO Q6H PRN nausea and vomiting 05/08/25 05/28/25 History tablet Allergies Allergy/AdvReac Type Severity Reaction Status Date / Time alendronate sodium (From AdvReac Mild GI upset Verified 05/28/25 09:04 Fosamax) codeine AdvReac Mild Nausea and Verified 05/28/25 09:04 Vomiting metronidazole AdvReac Mild GI upset Verified 05/28/25 09:04 NSAIDS (Non-Steroidal AdvReac Mild GI upset Verified 05/28/25 09:04 Anti-Inflamma quetiapine AdvReac Mild GI upset Verified 05/28/25 09:04 tolmetin AdvReac Mild GI upset Verified 05/28/25 09:04 Exam Narrative: unchanged Assessment and Plan Assessment and plan (1) Carpal tunnel syndrome of right wrist: Code(s): G56.01 - Carpal tunnel syndrome, right upper limb Status: Acute Assessment and Plan: cont as above
--- NOTE | 2025-05-28 07:02 | W.PM.PROC2 ---
Procedure Note - Detailed Date of Procedure 05/28/25 Pre-op Diagnosis Right Carpal Tunnel Syndrome Post-op Diagnosis Same Procedure Performed right ectr Surgeon Colten Spencer MD Manager Cardiology petey muñoz pa-c Anesthesia MAC Description of Procedure INFORMED CONSENT: The patient was seen and examined and marked in the pre-op area.? The patient signed the consent form. PROCEDURE IN DETAIL:The patient taken back to OR on the stretcher in supine position. Time out performed with anesthesia, surgeon and staff agreeing on patient's name site and surgery to be performed SCDs were placed on the lower extremities and inflated. A tourniquet was placed on {right} upper extremity and antibiotics given IV After anesthesia administered sedation I injected {5}cc 1%lido with epi and 0.5% marcaine plain at the operative site The?{right upper extremity}?was prepped and draped in sterile fashion the??{right upper extremity/} was? exsanguinated with Esmarch bandage and tourniquet inflated to 250mmHg I made a transverse incision in the {right} volar distal wrist crease through skin and dermis with 15 blade scalpel.? Littler scissors spread down to antebrachial fascia. A small incision was made in antebrachial fascia allowing access to Carpal tunnel. I proceeded with sequential dilation staying in line with the ring finger and hugging the hook of the hamate.? I then used the synovial elevator to free any adhesions from the underside of the transverse carpal ligament. Next I was able to insert the Microaire endoscopic carpal tunnel device with direct visualization of the transverse fibers on the monitor and proceeded with complete segmental retrograde release of the ligament in its entirety.? I irrigated with normal saline and closed with 4-0 monocryl for dermis and subcuticular closure. A dressing of Dermabond, 4x4, anant, and a volar splint was applied for patient safety, security, and comfort and secured with an hakan bandage after the tourniquet was let down noting the hand was warm and well perfused. The patient was then awaken from anesthesia and transferred to the recovery room in stable condition.? Complications - none EBL- 0cc Disposition - home in stable condition Petey Muñoz PA-C was essential for positioning, retraction, closure and dressing placement [facility] Billing Surgery - Charge Forward: Surgery Billing ([id number] same for petey adding )
--- OUTSIDE RECORDS SUMMARY | 2025-05-28 08:49 | XMS_ITS | Encounter Summary ---
Author Organization [facility] Address [address] [place] [address] Phone Care Team Providers Care Alterations Expert Name Role Phone Marco Woods MD Primary Care Provider Kirsten Niño MD Unavailable Chin Burrows MD Unavailable Kelsea Root RN Unavailable Unavailable iMchelle Mendes APRN, GAMEWELL OPERATOR Unavailable [phone] Chantelle Nix APRN, GAMEWELL OPERATOR Unavailable Analia Meza MD Unavailable [phone] Reason for Visit * Reason Comments Medication Refill Encounter Details Date Type Department Care Team (Late st Contact Info) Description 10/17/2022 [facility]ill [facility] [address] [place] [id number] Marco Woods MD [address] [place] [address] [address] Medication Refill Social History Tobacco Use Types Packs/Day Years Used Date Smoking Tobacco: Never Smokeless Tobacco: Never Alcohol Use Standard Drinks/Week Comments Not Currently 0 (1 standard drink = 0.6 oz pur e alcohol) Sexually Active Control Partners Comments Not Currently Comments No Sex and Gender Information Value Date Recorded Sex Assigned at Female 11/22/2023 11:58 AM LEATHER CARTRIDGE BELT MAKER Legal Sex Female 11:34 PM CDT Gender Identity Female 11/22/2023 11:58 AM LEATHER CARTRIDGE BELT MAKER Sexual Orientation Not on file Occupation Industry Job Start Date Job End Date disabled Not on file Not on file Not on file COVID-19 Exposure Response Date Recorded In the last 10 days, have yo u been in contact with someone who was confirmed or suspected to have Coronavirus/COVID-19? No / Unsure 10/11/2022 9:23 AM LEATHER CARTRIDGE BELT MAKER documented as of this encounter Miscellaneous Notes * Telephone Encounter - Maria Luz Sierra RN - 10/18/2022 8:37 AM CST duplicate HER CARTRIDGE BELT MAKER documented in this encounter Plan of Treatment Upcoming Encounters Date Type Department Care Team (Late st Contact Info) Description 06/12/2025 11:00 AM CDT [facility] - [place] [address] [place] [address] Marco Woods MD #[address] [address] 07/01/2025 11:00 AM CDT Office Visit [facility] - Ear, Nose & Throat - [place] #2 [place] [address] Analia Meza MD #[address] [address] 07/03/2025 5:30 PM [facility] [address] [place] [address] Analia Meza MD #[address] [address] Discharge Disposition: Discharged to home or Selfcare 07/17/2025 10:30 AM CDT Office Visit [facility] - Pulmonology & Sleep Medicine - [place] #2 [place] [address] Michelle Mendes APRN, GAMEWELL OPERATOR #2 [facility] [address] [place] [address] 08/11/2025 9:45 AM CDT Office Visit [facility] - Endocrinology - [place] [address] [place] [address] Kirsten Niño MD #2 [facility] [address] [place] [address] documented as of this encounter Visit Diagnoses Not on filedocumented in this encounter Additional Health Concerns Infection Onset Date Last Indicated Resolved Time COVID - 19 11/20/2022 11/20/2022 11/24/2022 8:51 AM LEATHER CARTRIDGE BELT MAKER COVID - 19 12/31/2022 12/31/2022 01/10/2023 12:1 8 AM CDT COVID - 19 Confirmed 12/31/2022 12/31/2022 023 12:17 AM CDT COVID - 19 06/01/2023 06/01/2023 06/01/2023 8:16 AM CDT COVID - 19 11/01/2023 11/01/2023 11/11/2023 12:1 6 AM LEATHER CARTRIDGE BELT MAKER COVID - 19 06/25/2024 06/25/2024 06/25/2024 6:36 PM CDT Assessment Noted Time PHQ-9 Depression Total Score: 0 11/22/19 10:00 AM LEATHER CARTRIDGE BELT MAKER documented as of this encounter Care Teams Alterations Expert Relationship Specialty Start Date End Date Marco Woods MD #2 [facility] [address] [place] [address] PCP - General Family Medicine 11/22/17 Kirsten Niño MD #[address] [address] Consulting Physician Endocrinology 07/17/22 Chin Burrows MD #[address] [address] Consulting Physician General Surgery 11/22/22 Kelsea Root, RN [place] [employer] 06/15/23 08/26/23 Michelle Mendes APRN, GAMEWELL OPERATOR #[address] [address] Nurse Practitioner Advanced Practice Nurse 08/14/22 Chantelle Nix APRN, GAMEWELL OPERATOR #2 [place] [address] Nurse Practitioner Advanced Practice Nurse 02/19/24 Analia Meza MD #[address] [address] Consulting Physician Otolaryngology 05/11/25 documented as of this encounter
--- OUTSIDE RECORDS SUMMARY | 2025-05-28 08:49 | XMS_ITS | Encounter Summary ---
Author Organization [facility] Address [address] [place] [address] Phone Care Team Providers Care Web Software Engineer Name Role Phone Marco Woods MD Primary Care Provider Kirsten Niño MD Unavailable Chin Burrows MD Unavailable Michelle Mendes WOOD SKI MAKER, CAR CARDER Unavailable [phone] Chantelle Nix APRN, CAR CARDER Unavailable Analia Meza MD Unavailable [phone] Reason for Visit * Reason Comments Medication Refill Encounter Details Date Type Department Care Team (Late st Contact Info) Description 09/25/2023 [facility] [address] [place] [address] Kirsten Niño MD #[address] [address] Medication Refill Social History Tobacco [...] Sex Assigned at Female 11/22/2023 11:58 AM STOCK ROOM MANAGER Legal Sex Female 11:34 PM CDT Gender Identity Female 11/22/2023 11:58 AM STOCK ROOM MANAGER Sexual Orientation Not on file Occupation Industry Job Start Date Job End Date disabled Not on file Not on file Not on file documented as of this encounter Miscellaneous Notes * Telephone Encounter - Denise Doe RN - 09/26/2023 8:46 AM STOCK ROOM MANAGER Requested Prescriptions Pending Prescriptions Disp Refills ??? Prolia 60 MG/ML Solution Prefilled Syringe [Pharmacy Med Name: PROLIA 60MG/ML CHARLEEN FOR INJ, 1ML]1 mL 0 Sig: INJECT 1ML SUBCUTANEOUS EVERY 6 MONTHS Next appt: 09/27/2024 K ROOM MANAGER documented in this encounter Plan of Treatment Upcoming Encounters Date Type Department Care Team (Late st Contact Info) Description 06/12/2025 11:00 AM CDT [facility] Visit [facility] #[address] [place] [address] Marco Woods MD #[address] [address] 07/01/2025 11:00 AM CDT Office Visit [facility] Medical Group - Ear, Nose & Throat - [place] #2 [place] [address] Analia Meza MD #[address] [address] 07/03/2025 5:30 PM CDT [facility]ointment [facility] [address] [place] [address] Analia Meza MD #[address] [phone] Discharge Disposition: Discharged to home or Selfcare 07/17/2025 10:30 AM CDT Office Visit [facility] - Pulmonology & Sleep Medicine [facility] #[address] [place] [address] Michelle Mendes APRN, CAR CARDER #2 [facility] [address] [place] [address] 08/11/2025 9:45 AM CDT Office Visit [facility] Medical [facility] - Endocrinology - [place] #[address] [place] [address] Kirsten Niño MD #[address] [phone] documented as of this encounter Visit Diagnoses Not on filedocumented in this encounter Additional Health Concerns Infection Onset Date Last Indicated Resolved Time COVID - 19 11/01/2023 11/01/2023 11/11/2023 12:1 6 AM STOCK ROOM MANAGER COVID - 19 06/25/2024 06/25/2024 06/25/2024 6:36 PM CDT Assessment Noted Time PHQ-9 Depression Total Score: 0 11/22/19 10:00 AM STOCK ROOM MANAGER documented as of this encounter Care Teams Web Software Engineer Relationship Specialty Start Date End Date Marco Woods MD #2 [facility] [address] [place] [address] PCP - General Family Medicine 11/22/17 Kirsten Niño MD #[address] [address] Consulting Physician Endocrinology 07/17/22 Chin Burrows MD #[address] [phone] Consulting Physician General Surgery 11/22/22 Michelle Mendes APRN, CAR CARDER #2 [facility] [address] [place] [address] Nurse Practitioner Advanced Practice Nurse 08/14/22 Chantelle Nix APRN, CAR CARDER #[address] [place] [address] Nurse Practitioner Advanced Practice Nurse 02/19/24 Analia Meza MD #[address] [address] Consulting Physician Otolaryngology 05/11/25 documented as of this encounter
--- OUTSIDE RECORDS SUMMARY | 2025-05-28 08:49 | XMS_ITS | Encounter Summary ---
Author Organization [facility] Address [address] [place] [address] Phone Care Team Providers Care Seat Pack Inspector Name Role Phone Marco Woods MD Primary Care Provider [phone] Kirsten Niño MD Unavailable Chin Burrows MD Unavailable [phone] Kelsea Root RN Unavailable Unavailable Michelle Mendes APRN, OUTSIDE REPAIRER SPECIAL Unavailable Chantelle Nix APRN, OUTSIDE REPAIRER SPECIAL Unavailable Analia Meza MD Unavailable [phone] Reason for Visit * Reason Comments Medication Refill Encounter Details Date Type Department Care Team (Late st Contact Info) Description 10/16/2022 Refill [facility] [address] [place] [address] Marco Woods MD [address] [place] [address] [address] Medication Refill Social History Tobacco Use Types Packs/Day Years Used Date Smoking Tobacco: Never Smokeless Tobacco: Never Alcohol Use Standard Drinks/Week Comments Not Currently 0 (1 standard drink = 0.6 oz pur e alcohol) Sexually Active Control Partners Comments Not Currently Comments No Sex and Gender Information Value Date Recorded Sex Assigned at Female 11/22/2023 11:58 AM ANTIQUE FURNITURE REPAIRER Legal Sex Female 11:34 PM CDT Gender Identity Female 11/22/2023 11:58 AM ANTIQUE FURNITURE REPAIRER Sexual Orientation Not on file Occupation Industry Job Start Date Job End Date disabled Not on file Not on file Not on file COVID-19 Exposure Response Date Recorded In the last 10 days, have yo u been in contact with someone who was confirmed or suspected to have Coronavirus/COVID-19? No / Unsure 10/11/2022 9:23 AM ANTIQUE FURNITURE REPAIRER documented as of this encounter Miscellaneous Notes [...] Dept 08/29/22 Office Visit Ronald Shaffer APRN, OUTSIDE REPAIRER SPECIAL [facility] 07/12/22 Office Visit Jany Hernandez, [facility] [place] 06/23/22 Office Visit Marco Woods MD [facility] [place] 05/19/22 Office Visit Marco Woods MD [facility] [place] 01/10/22 Office Visit [facility] recent visits within past 365 days and meeting all other requirements Future Appointments Date Type Provider Dept 10/25/22 Appointment Marco Woods MD [facility] [place] Showing future appointments within next 90 days and meeting all other requirements QUE FURNITURE REPAIRER documented in this encounter Plan of Treatment Upcoming Encounters Date Type Department Care Team (Late st Contact Info) Description 06/12/2025 11:00 AM CDT Office Visit [facility] - Family Medicine - [place] #2 [place] [address] Marco Woods MD #2 [facility] [address] [place] [address] 07/01/2025 11:00 AM CDT Office Visit [facility] - Ear, Nose & Throat - [place] #2 [place] [address] Analia Meza MD #[address] [phone] 07/03/2025 5:30 PM CD[facility] [address] [place] [phone] Analia Meza MD #[address] [phone] Discharge Disposition: Discharged to home or Selfcare 07/17/2025 10:30 AM CDT [facility] & Sleep [facility] - [place] #2 [place] [address] Michelle Mendes APRN, OUTSIDE REPAIRER SPECIAL #2 [facility] [address] [place] [address] 08/11/2025 9:45 AM CDT Office Visit [facility] - Endocrinology - [place] #[address] [place] [address] Kirsten Niño MD #[address] [place] [address] documented as of this encounter Visit Diagnoses Not on filedocumented in this encounter Additional Health Concerns Infection Onset Date Last Indicated Resolved Time COVID - 19 11/20/2022 11/20/2022 11/24/2022 8:51 AM ANTIQUE FURNITURE REPAIRER COVID - 19 12/31/2022 12/31/2022 01/10/2023 12:1 8 AM CDT COVID - 19 Confirmed 12/31/2022 12/31/2022 023 12:17 AM CDT COVID - 19 06/01/2023 06/01/2023 06/01/2023 8:16 AM CDT COVID - 19 11/01/2023 11/01/2023 11/11/2023 12:1 6 AM ANTIQUE FURNITURE REPAIRER COVID - 19 06/25/2024 06/25/2024 06/25/2024 6:36 PM CDT Assessment Noted Time PHQ-9 Depression Total Score: 0 11/22/19 10:00 AM ANTIQUE FURNITURE REPAIRER documented as of this encounter Care Teams Seat Pack Inspector Relationship Specialty Start Date End Date Marco Woods MD #2 [facility] [address] [place] [address] PCP - General Family Medicine 11/22/17 Kirsten Niño MD #2 [facility] [address] [place] [address] Consulting Physician Endocrinology 07/17/22 Chin Burrows MD #2 [facility] [address] [place] [address] Consulting Physician General Surgery 11/22/22 Kelsea Root RN [place] Comedian 06/15/23 08/26/23 Michelle Mendes APRN, OUTSIDE REPAIRER SPECIAL #2 [facility] [address] [place] [address] Nurse Practitioner Advanced Practice Nurse 08/14/22 Chantelle Nix APRN, OUTSIDE REPAIRER SPECIAL [address] [place] [address] Nurse Practitioner Advanced Practice Nurse 02/19/24 Analia Meza MD #2 [place] [address] [address] Consulting Physician Otolaryngology 05/11/25 documented as of this encounter
--- OUTSIDE RECORDS SUMMARY | 2025-05-28 08:49 | XMS_ITS | Encounter Summary ---
Author Organization [facility] Address [address] [place] [address] Phone Care Team Providers Care Primary School Principal Name Role Phone Marco Woods MD Primary Care Provider [phone] Kirsten Niño MD Unavailable Chin Burrows MD Unavailable Michelle Mendes APRN, FRAME WIRER Unavailable [phone] Chantelle Nix APRN, FRAME WIRER Unavailable Analia Meza MD Unavailable [phone] Reason for Visit * Reason Comments Medication Refill Encounter Details Date Type Department Care Team (Late st Contact Info) Description 01/03/2024 Refill [facility] - Family Medicine - [place] [address] [place] [address] Marco Woods MD [address] [address] Medication Refill Social History Tobacco Use Types Packs/Day Years Used Date Smoking Tobacco: Never Smokeless Tobacco: Never Alcohol Use Standard Drinks/Week Comments Not Currently 0 (1 standard drink = 0.6 oz pur e alcohol) [facility] Utilities Answer Date Recorded In the past 12 months has Posted[employer] electric, gas, oil, or water company threatened [...] declined 11/28/2023 How often do you attend evangelical or pentecostal serv ices? Patient declined 11/28/2023 Do you belong to any clubs o r organizations such as evangelical groups, unions, fraternal or athletic groups, or [...] 1-9 18 10/24 [facility] - Occupational Stress Questionnaire Answer [...] senior living (including now)? Patient declined 11/28/2023 Education Answer Date Recorded What is the highest level of school you have completed or the highest degree you have received? 12th grade 04/03/2023 Sexually Active Control Partners Comments Not Currently Comments No Sex and Gender Information Value Date Recorded Sex Assigned at Female 11/22/2023 11:58 AM ROASTER OPERATOR Legal Sex Female 11:34 PM CDT Gender Identity Female 11/22/2023 11:58 AM ROASTER OPERATOR Sexual Orientation Not on file Occupation Industry Job Start Date Job End Date disabled Not on file Not on file Not on file documented as of this encounter Miscellaneous Notes * Telephone Encounter - Lila Chaparro RN - 01/03/2024 11:13 AM CDT Medication(s) [facility] Chronic Medication Refill Standing Order for Pediatricand [...] Dept 12/05/23 Office Visit Marco Woods MD [facility] 11/20/23 Office Visit Ronald Shaffer APRN, FRAME WIRER [facility] [place] 10/10/23 Office Visit Rebecca Liu APRN, DREW [facility] 08/24/23 Office Visit Ranjit Linder MD [facility] 08/02/23 Office Visit Marco Woods MD [facility] 05/01/23 Office Visit Marco Woods MD [facility] 04/18/23 Office Visit Marco Woods MD [facility] 04/03/23 Office Visit Marco Woods MD [facility] 03/12/23 Office Visit Marco Woods MD [facility] 03/05/23 Office Visit Mirtha Steiner APRN, [facility] [place] Showing recent visits within past 365 days [...] [facility] - [facility] Medicine [place] [address] [facility] [place] [place] [phone] Marco Woods MD #2 [facility] [address] [place] [address] 07/01/2025 11:00 AM CDT Office Visit [facility] - Ear, Nose & Throat - [place] [address]2 [facility] [place] [address] Analia Meza MD #[address] [phone] 07/03/2025 5:30 PM CDT [facility] [place] [phone] Analia Meza MD #[address] [address] Discharge Disposition: Discharged to home or Selfcare 07/17/2025 10:30 AM CDT [facility] [place] [address] [place] [phone] Michelle Mendes APRN, DREW #2 [facility] [address] [place] [address] 08/11/2025 9:45 AM CDT Office Visit [facility] - Endocrinology - [place] [address]2 [place] [address] Kirsten Niño MD #2 [facility] [address] [place] [address] documented as of this encounter Visit Diagnoses Not on filedocumented in this encounter Additional Health Concerns Infection Onset Date Last Indicated Resolved Time COVID - 19 06/25/2024 06/25/2024 06/25/2024 6:36 PM CDT Assessment Noted Time PHQ-9 Depression Total Score: 18 024 10:00 AM ROASTER OPERATOR documented as of this encounter Care Teams Primary School Principal Relationship Specialty Start Date End Date Marco Woods MD #2 [facility] [address] [place] [address] PCP - General Family Medicine 11/22/17 Kirsten Niño MD #2 [facility] [address] [place] [address] Consulting Physician Endocrinology 07/17/22 Chin Burrows MD #[address] [place] [address] Consulting Physician General Surgery 11/22/22 Michelle Mendes APRN, FRAME WIRER #2 [facility] [address] [place] [address] Nurse Practitioner Advanced Practice Nurse 08/14/22 Chantelle Nix APRN, FRAME WIRER #2 [place] [address] Nurse Practitioner Advanced Practice Nurse 02/19/24 Analia Meza MD #[address] [place] [address] Consulting Physician Otolaryngology 05/11/25 documented as of this encounter
--- OUTSIDE RECORDS SUMMARY | 2025-05-28 08:49 | XMS_ITS | Encounter Summary ---
Author Organization [facility] Address [address] [place] [address] Phone Care Team Providers Care Die Casting Machine Setter Name Role Phone Marco Woods MD Primary Care Provider Kirsten Niño MD Unavailable Chin Burrows MD Unavailable Michelle Mendes APRN, FORMS DESIGNER Unavailable Chantelle Nix APRN, FORMS DESIGNER Unavailable Analia Meza MD Unavailable [phone] Reason for Visit * Reason Comments Medication Refill Encounter Details Date Type Department Care Team (Late st Contact Info) Description 12/26/2023 Refill [facility] - Family Medicine - [place] [address] [place] [address] Marco Woods MD [id number] [address] Medication Refill Social History Tobacco Use Types Packs/Day Years Used Date Smoking Tobacco: Never Smokeless Tobacco: Never Alcohol Use Standard Drinks/Week Comments Not Currently 0 (1 standard drink = 0.6 oz pur e alcohol) [facility] Utilities Answer Date Recorded In the past 12 months has [employer] electric, gas, oil, or water company threatened [...] How often do you attend zoroastrianism or advent serv ices? Patient declined 11/28/2023 Do you [...] Total Score - Questions 1-9 18 10/24 [facility] - Occupational Stress [...] Sex Assigned at Female 11/22/2023 11:58 AM VICE PRESIDENT CLIENT SERVICES Legal Sex Female 11:34 PM CDT Gender Identity Female 11/22/2023 11:58 AM VICE PRESIDENT CLIENT SERVICES Sexual Orientation Not on file Occupation Industry Job Start Date Job End Date disabled Not on file Not on file Not on file documented as of this encounter Miscellaneous Notes * Telephone Encounter - Amada Orozco RN - 12/27/2023 11:05 AM CST Pt should be getting this from psych. Dr Galeana is a psychiatrist. PRESIDENT CLIENT SERVICES * Telephone Encounter - Amada Orozco RN - 12/27/2023 11:02 AM CST Images from the original note were not included. [place] Carbonate Dispensed Days Supply Quantity Provider Pharmacy LITHIUM CARBONATE ER 300 MG TBCR 11/29/2023 28 56 Tablet Maria Antonia Galeana MD [facility] -Alt... LITHIUM CARBONATE ER 300 MG TBCR 11/06/2023 28 56 Tablet Maria Antonia Galeana MD [facility] -Alt... PRESIDENT CLIENT SERVICES documented in this encounter Plan of Treatment Upcoming Encounters Date Type Department Care Team (Late st Contact Info) Description 06/12/2025 11:00 AM CDT Office Visit [facility] - Family Medicine - [place] [address] [place] [address] Marco Woods MD #2 [facility] [address] [place] [address] 07/01/2025 11:00 AM CDT Office Visit [facility] Medical [facility] - Ear, Nose & Throat - [place] [address] [place] [phone] Analia Meza MD #2 [facility] [address] [place] [address] 07/03/2025 5:30 PM CD[facility] [address] [place] [phone] Analia Meza MD #2 [facility] [address] [place] [address] Discharge Disposition: Discharged to home or Selfcare 07/17/2025 10:30 AM CDT Office Visit [facility] - Pulmonology & Sleep Medicine - [place] [address] [place] [phone] Michelle Mendes APRN, FORMS DESIGNER #2 [facility] [address] [place] [address] 08/11/2025 9:45 AM CDT Office Visit [facility] - Endocrinology - [place] [address] [place] [address] Kirsten Niño MD #[address] [place] [address] [address] documented as of this encounter Visit Diagnoses Not on filedocumented in this encounter Additional Health Concerns Infection Onset Date Last Indicated Resolved Time COVID - 19 06/25/2024 06/25/2024 06/25/2024 6:36 PM CDT Assessment Noted Time PHQ-9 Depression Total Score: 18 024 10:00 AM VICE PRESIDENT CLIENT SERVICES documented as of this encounter Care Teams Die Casting Machine Setter Relationship Specialty Start Date End Date Marco Woods MD #2 [facility] [address] [place] [address] PCP - General Family Medicine 11/22/17 Kirsten Niño MD #[address] [place] [address] [address] Consulting Physician Endocrinology 07/17/22 Chin Burrows MD #[address] [place] [address] Consulting Physician General Surgery 11/22/22 Michelle Mendes APRN, FORMS DESIGNER #2 [facility] [address] [place] [address] Nurse Practitioner Advanced Practice Nurse 08/14/22 Chantelle Nix APRN, FORMS DESIGNER #[address] [place] [address] Nurse Practitioner Advanced Practice Nurse 02/19/24 Analia Meza MD [address] [facility] [address] [address] Consulting Physician Otolaryngology 05/11/25 documented as of this encounter
--- OUTSIDE RECORDS SUMMARY | 2025-05-28 08:49 | XMS_ITS | Clinical Summary ---
Author Organization [facility] Address [address] [facility] [place] [address] Phone Care Team Providers Care Client Application Support Engineer Name Role Phone Marco Woods MD Primary Care Provider [phone] Kirsten Niño MD Unavailable Chin Burrows MD Unavailable Michelle Mendes WEB SOFTWARE ENGINEER, MARSHMALLOW MAKER Unavailable Chantelle Nix APRN, MARSHMALLOW MAKER Unavailable Analia Meza MD Unavailable [phone] Allergies Active Allergy Reactions Criticality Noted [...] for Other (shortness of breath). Discontinued(E rror) traMADol (ULTRAM) 50 MG TabletIndicatio [...] Encounters Date Type Department Care Team Description 05/26/2025 Telephone [facility] Endocrinology [facility] [address] [place] [phone] Kirsten Niño MD Medication Management 05/26/2025 Telephone [facility] [address] [place] [address] [phone] Marco Woods MD Medication Management; Follow-up 05/18/2025 Telephone [facility] [address] [place] [address] [phone] Marco Woods MD Medication Refill 05/18/2025 Telephone [facility] [address] [place] [phone] Marco Woods MD Medication Management 05/18/2025 Telephone [facility] [address] [place] [phone] Marco Woods MD Advice Only 05/15/2025 [facility] [place] [address] [place] [address] Mirtha Steiner APRN, CNP Medication Refill 05/15/2025 Telephone [facility] [address] [place] [address] [phone] Marco Woods MD Follow-up 05/13/2025 3:00 PM CDT Immunization [facility] - Endocrinology - [place] [address] [place] [phone] NurseVladislav Endo Osteoporosis, unspecified osteoporosis type, unspecified pathological fracture presence (Primary Dx); Hypercalcemia Discharge Disposition: Discharged to home or Selfcare 05/13/2025 1:45 PM CDT Office Visit [facility] - Ear, Nose & Throat - [place] [address] [place] [phone] Marco Woods MD Alkarmi, Ayham, MD Post-nasal drip (Primary Dx); Deviated nasal septum; Chronic sinusitis, unspecified location; Hypertrophy of both inferior nasal turbinates; Nasal congestion; Sinus headache Discharge Disposition: Discharged to home or Selfcare 05/13/2025 Telephone [facility] [address] [place] [address] Kirsten Niño MD Results 05/11/2025 9:45 AM CDT Office Visit [facility] [address] [place] [address] Kirsten Niño MD Acquired hypothyroidism (Primary Dx); Osteoporosis, unspecified osteoporosis type, unspecified pathological fracture presence; Hyperparathyroidism (HCC) Discharge Disposition: Discharged to home or Selfcare 05/11/2025 Travel 05/05/2025 Telephone [facility] [address] [place] [phone] Marco Woods MD Letter for School/Work 05/04/2025 Telephone [facility] [address] [place] [address] [phone] Marco Woods MD Results 05/01/2025 Telephone [facility] [address] [place] [address] [phone] Marco Woods MD Results 05/01/2025 Telephone [facility] [address] [place] [address] [phone] Marco Woods MD Message to PCP frpm patient 04/29/2025 Nurse Triage [facility] [address] [place] [phone] Marco Woods MD Follow-up 04/28/2025 Telephone [facility] [address] [place] [address] [phone] Marco Woods MD Results 04/26/2025 Telephone [facility] [address] [place] [phone] Marco Woods MD Follow-up 04/24/2025 Refill [facility] [address] [place] [address] Marco Woods MD Medication Refill 04/23/2025 Telephone [facility] [address] [place] [phone] Marco Woods MD Medication Management 04/21/2025 6:30 AM CDT - 04/21/2025 11:59 PM CDT [facility] [address] [place] [address] Marco Woods MD Discharge Disposition: Discharged to home or Selfcare 04/21/2025 Refill [facility] [address] [place] [address] Marco Woods MD Medication Refill 04/21/2025 Telephone [facility] Central Call [address] [phone] Marco Woods MD Medication Management 04/20/2025 1:15 PM CDT Office Visit [facility] [address] [place] [address] Marco Woods MD Essential hypertension (Primary Dx); Chronic maxillary sinusitis; Chronic neck pain Discharge Disposition: Discharged to home or Selfcare 04/20/2025 Refill [facility] Pulmonology & Sleep Medicine [facility] [address] [place] [address] Michelle Mendes APRN, DREW Medication Refill 04/20/2025 Travel 04/20/2025 Nurse Triage [facility] Central Call [address] [phone] Marco Woods MD Neck Pain 04/16/2025 Telephone [facility] [address] [place] [phone] Jeniffer Devries APRN, CNP 04/15/2025 Refill [facility] Endocrinology [facility] [address] [place] [address] Kirsten Niño MD Medication Refill; Care Management 04/14/2025 6:30 PM CDT Office Visit [facility] [address] [place] [address] Marco Woods MD Carpal tunnel syndrome of right wrist (Primary Dx); Essential hypertension; Mixed hyperlipidemia; Acquired hypothyroidism; Pain of upper abdomen Discharge Disposition: Discharged to home or Selfcare 04/13/2025 Telephone [facility] [address] [place] [address] Marco Woods MD 04/12/2025 Results Follow-Up [facility] [address] [place] [address] Jeniffer Devries APRN, DREW POC GROUP A STREP BY MOLECULAR, POCT UA AUTOMATED W/O MICRO, VAGINITIS SCREEN, MOLECULAR 04/11/2025 8:10 AM CDT Urgent Care Visit [facility] [address] [place] [address] Jeniffer Devries APRN, DREW Vaginal discharge (Primary Dx); Sore throat; Flank pain Discharge Disposition: Discharged to home or Selfcare 04/11/2025 Refill [facility] [address] [place] [phone] Marco Woods MD Medication Refill 04/11/2025 Travel 04/10/2025 Telephone [facility] [address] [place] [phone] Marco Woods MD Advice Only 04/10/2025 Telephone [facility] [address] [place] [address] Marco Woods MD 04/09/2025 [facility]phone [facility] [address] [place] [phone] Marco Woods MD Medication Management 04/08/2025 Telephone [facility] [address] [place] [phone] Marco Woods MD Form Completion; Results 04/07/2025 [facility] [place] [address] Marco Woods MD Medication Refill 04/07/2025 [facility] [place] [address] [place] [address] Michelle Mendes APRN, CNP Medication Refill 04/07/2025 [facility] [place] [address] [place] [address] Kirsten Niño MD 04/07/2025 Telephone [facility] [address] [place] [phone] Marco Woods MD Medication Management 04/06/2025 Telephone [facility] [address] [place] [address] Marco Woods MD 04/06/2025 Results Follow-Up [facility] [address] [place] [address] Marco Woods MD EMG 04/03/2025 Refill [facility] [address] [place] [phone] Marco Woods MD Follow-up; Medication Refill 04/02/2025 2:30 PM CDT [facility] [address] [place] [address] Marco Woods MD Bilateral hand numbness Discharge Disposition: Discharged to home or Selfcare 04/02/2025 Travel 03/30/2025 [facility] [place] [address] Marco Woods MD Medication Refill 03/30/2025 Telephone [facility] [address] [place] [phone] Marco Woods MD 03/30/2025 [facility] [place] [address] Michelle Mendes APRN, CNP Medication Refill 03/30/2025 [facility]ill [facility] [place] [address] Marco Woods MD Medication Refill 03/29/2025 Telephone [facility] [address] [place] [address] Marco Woods MD 03/25/2025 [facility]ill [facility] [address] [place] [phone] Marco Woods MD Medication Management 03/24/2025 Telephone [facility] [address] [place] [address] Marco Woods MD 03/24/2025 [facility]phone [facility] [address] [place] [address] [phone] Marco Woods MD Message to PCP from patient; Medication Refill 03/17/2025 Telephone [facility] [address] [place] [address] [phone] Marco Woods MD Advice Only 03/13/2025 [facility] [place] [address] Marco Woods MD Medication Refill 03/12/2025 8:00 AM CDT Office Visit [facility] [address] [place] [address] Marco Woods MD Peripheral edema (Primary Dx); Acquired hypothyroidism Discharge Disposition: Discharged to home or Selfcare 03/12/2025 Telephone [facility] [address] [place] [phone] Marco Woods MD Need Order 03/12/2025 Telephone [facility] Pulmonology & Sleep Medicine [facility] [address] [place] [address] Michelle Mendes APRN, MARSHMALLOW MAKER Medication Management 03/10/2025 Telephone [facility] [address] [place] [phone] Marco Woods MD Follow up/Information 03/09/2025 6:09 PM CDT - 03/09/2025 8:45 PM CDT [facility] [address] [place] [address] Nikhil Robles PAC DOE (dyspnea on exertion) Discharge Disposition: Discharged to home or Selfcare 03/09/2025 Travel 03/09/2025 Telephone [facility] [address] [place] [phone] Marco Woods MD Results 03/09/2025 Telephone [facility] [address] [place] [address] [phone] Marco Woods MD Medication Management; Shortness of Breath 03/09/2025 Telephone [facility] [address] [place] [phone] Marco Woods MD Medication Management 03/09/2025 Nurse Triage [facility] [address] [place] [address] Marco Woods MD Shortness of Breath 03/08/2025 Results Follow-Up [facility] [address] [place] [address] Kirsten Niño MD THYROID STIMULATING HORMONE (TSH), THYROXINE (T4) FREE 03/06/2025 9:46 AM CDT - 03/06/2025 11:59 PM CDT Hospital Encounter [facility] Diagnostic Radiology [address] [place] [address] Marco Woods MD Discharge Disposition: Discharged to home or Selfcare 03/06/2025 Nurse Triage [facility] [address] [place] [address] [phone] Marco Woods MD Advice Only; Leg Swelling 03/06/2025 Telephone [facility] [address] [place] [phone] Marco Woods MD Follow-up 03/05/2025 1:15 PM CDT Office Visit [facility] [address] [place] [address] Marco Woods MD Peripheral edema (Primary Dx); SANDOVAL (dyspnea on exertion); Bilateral hand numbness Discharge Disposition: Discharged to home or Selfcare 03/05/2025 Travel 03/05/2025 Nurse Triage [facility] [address] [place] [address] [phone] Marco Woods MD Edema 03/04/2025 Telephone [facility] [address] [place] [address] Kirsten Niño MD Advice Only 03/02/2025 Refill [facility] [address] [place] [address] [phone] Marco Woods MD Medication Management from Last 3 Months Immunizations Immunization Administration Dates Next Due Covid-19, Mrna, Lnp-s, Pf, 3 0 Mcg/0.3 Ml Dose ([employer]) 04/23/2021,03/26/2021 Hepatitis A And Hepatitis B Vaccine [...] drink = 0.6 oz pur e alcohol) [facility] Utilities Answer Date Recorded In the past 12 months has e [employer], gas, oil, or water [employer] threatened to shut off services in your home? Patient unable to answer 06/25/2024 Social Connection and Isolation Panel Answer Date Recorded In a typical week, how many times do you talk on the phone with family, friends, or neighbors? Patient declined 06/25/2024 How often do you get togethe r with friends or relatives? Patient declined 06/25/2024 How often do you attend methodist or advent serv ices? Patient declined 06/25/2024 [...] - Questions 1-9 18 10/24 [facility] - Occupational Stress Questionnaire Answer Date [...] a usp (including now)? Patient declined 11/28/2023 Housing Stability [...] time in the past 12 m [facility], were you homeless or living in a usp (including now)? Patient unable to answer 06/25/2024 Education Answer Date Recorded What is the highest level of school you have completed or the highest degree you have received? 12th grade 04/03/2023 Sexually Active [employer] Comments Not Currently Comments No Sex and Gender Information Value Date Recorded Sex Assigned at Female 11/22/2023 11:58 AM CARE TEAM COORDINATOR SCHEDULER Legal Sex Female 11:34 PM CDT Gender Identity Female 11/22/2023 11:58 AM CARE TEAM COORDINATOR SCHEDULER Sexual Orientation Not on file Occupation [...] [facility] - [facility] Medicine - [place] [address] [place] [address] Marco Woods MD #2 [facility] [address] [place] [address] 07/01/2025 11:00 AM CDT Office Visit [facility] - Ear, Nose & Throat - [place] [address]2 [facility] [place] [address] Analia Meza MD #2 [facility] [address] [place] [address] 07/03/2025 5:30 PM CDT [facility]ointment [facility] [address] [facility] [place] [address] Analia Meza MD #2 [facility] [address] [place] [address] Discharge Disposition: Discharged to home or Selfcare 07/17/2025 10:30 AM CDT [facility] - Pulmonology & Sleep Medicine - [place] [address] [place] [phone] Michelle Mendes APRN, MARSHMALLOW MAKER #2 [facility] [address] [place] [address] 08/11/2025 9:45 AM CDT Office Visit [facility] - Endocrinology - [place] [address] [place] [address] Kirsten Niño MD #[address] [facility] [address] [place] [address] Health Maintenance Due Date Last [...] this topic Medical Devices Implanted Type Area Register In [place]cery Device Identifier Shelf Expiration Date Model / Serial / Lot Clip 360 Resolution 235cm - [id number] Implanted:Qty: 2 on 07/12/2020 by Dani Garrett DO at [facility] IMPLANT Scan•Jour 05/03/2023 [id number] / [id number] / [id number] Procedures Procedure Name Priority Date/Time Associated Diagnosis [...] on exertion) HM COLONOSCOPY 12/11/2024 12:00 AM CARE TEAM COORDINATOR SCHEDULER YU BONE DENSITOMETRY AXIAL SKELETON Routine 11/28/2024 2:24 PM CARE TEAM COORDINATOR SCHEDULER Hyperparathyroidis m (HCC) Osteoporosis, unspecified osteoporosis type, [...] turbinate, no mucopurulent secretion nasopharynx EBL: none us Analia Meza MD PROCEDURE/MINOR SURGICAL ORDERA BLES Final Result * VITAMIN D, 25 HYDROXY TOTAL (05/13/2025 6:46 AM CDT) VITAMIN D, 25 HYDROX 14.6 ng/mL 05/13/2025 7:51 AM CDT [facility] [...] in conjunction with clinical findings and suspicions. [employer]bins of Medicine and Endocrine Clinical Practice Guidelines: Status Vitamin D levels (ng/mL) Deficient <=20 At risk of inadequacy 21-29 Sufficient 30-100 Centers of Disease Control and Prevention Guidelines: Status Vitamin D levels (ng/mL) Deficient <13 At risk of inadequacy 13-19 Sufficient 20-50 Possibly harmful >50 References: Robbins of Medicine, 2010 Dietary reference intakes for calcium and vitamin D. [place]: The National Academies Press. Betty M, Simba N, Sri LARSEN, et al., Evaluation, treatment, and prevention of Vitamin D deficiency: an Endocrinology Clinical Practice Guideline. JCEM 2011 96: 7 3368-9303. Stella A, Laith C, Saundra D, et al., Vitamin D Status: [place], 1159-8265, [facility] data brief, no. 59, MD Hung: National Center for Health Statistics. 2011. us Kirsten Niño MD CHEMISTRY ORDERABLES Final Resul t [facility] [address] [place] [address] * THYROXINE (T4) FREE (05/13/2025 6:46 AM CDT) Only the most recent of2 resultswithin the time period is included. T4 FREE 1.0 0.7 - 1.9 ng/dL 05/13/2025 7:50 AM CDT [facility] Blood Venipuncture / Unknown 05/13/2025 6:46 AM CDT 05/13/2025 7:16 AM CDT us Kirsten Niño MD CHEMISTRY ORDERABLES Final Resul t Performing Organization Address City/[facility] Co de Phone Number [facility] [address] [place] [address] * (ABNORMAL) THYROID STIMULATING HORMONE (TSH) (05/13/2025 6:46 AM CDT) Only the most recent of2 resultswithin the time period is included. TSH 24.713(H) 0.300 - 5.000 mIU/L 05/13/2025 7:50 AM CDT [facility] Blood Venipuncture / Unknown 05/13/2025 6:46 AM CDT 05/13/2025 7:16 AM CDT us Kirsten Niño MD CHEMISTRY ORDERABLES Final Resul t Performing Organization Address [facility] Co de Phone Number [facility] [address] [place] [address] * PARATHYROID HORMONE PTH INTACT (05/13/2025 6:46 AM CDT) PTH INTACT 61 13 - 85 pg/mL 05/13/2025 7:53 AM CDT [facility] Blood Venipuncture / Unknown 05/13/2025 6:46 AM CDT 05/13/2025 7:16 AM CDT us Kirsten Niño MD CHEMISTRY ORDERABLES Final Resul t Performing Organization Address City/[facility] Co de Phone Number [facility] [address] [place] [address] * XR CERVICAL SPINE MINIMUM 4 VIEWS [...] Electronically signed by Stephen Herrmann M.D. RB: JIMY Report ID: [id number] Reading Location: [id number] Procedure Note Stephen Herrmann MD - 05/01/2025 [...] Electronically signed by Stephen Herrmann M.D. RB: JIMY Report ID: [id number] Reading Location: [id number] IMPRESSION: 1. No acute bony abnormality in the cervical spine. 2. 2 mm anterior subluxation C2 on C3 and C3 on C4 with reversal of cervical lordosis. 3. Multilevel cervical spondylosis and degenerative disc disease as described above. Marco Woods MD IMG DIAGNOSTIC ORDERABLES Fin al Result * VAGINITIS SCREEN, MOLECULAR (04/11/2025 8:54 AM CDT) TRICHOMONAS NOT DETECTED NOT DETECTED 04/11/2025 10:35 PM CDT [facility] BACTERIAL VAGINOSIS NOT DETECTED NOT DETECTED 04/11/2025 10:35 PM CDT [facility] ABY NOT DETECTED NOT DETECTED 04/11/2025 10:35 PM CDT [facility] Comment: Aby group Not detected with the following possible Aby species: Aby albicans and/or Aby tropicalis and/or Aby parapsilosis and/or Aby dubliniensis ABY GLABRATA NOT DETECTED NOT DETECTED 04/11/2025 10:35 PM CDT [facility] ABY KRUSEI NOT DETECTED NOT DETECTED 04/11/2025 10:35 PM CDT [facility] Other VAGINAL STRUCTURE / Unknown Non-Phlebotomy Collection / Unknown 04/11/2025 8:54 AM CDT 04/11/2025 8:54 AM CDT Jeniffer Devries APRN, CNP MICROBIOLOGY - GEN ERAL ORDERABLES Final Result [facility] [address] [place] [address], [place] * POCT UA AUTOMATED W/O MICRO (04/11/2025 8:21 AM CDT) POC UA SPECIFIC GRAVITY 1.015 URINE PH [...] Clear Urine 04/11/2025 8:21 AM CDT Jeniffer Devries APRN, DREW POINT OF CARE TEST ING (MANUAL) Final Result * POC GROUP A STREP BY MOLECULAR (04/11/2025 8:21 AM CDT) Pathologist [facility] STREP A DNA Negative Negative, Invalid PROCEDURE [...] Woods MD NEUROLOGY ORDERABLES V2 Final Result Performing Organization Address [facility] de Phone Number SCAN * IMAGE GENERIC SCAN (03/30/2025 12:00 AM CDT) 03/30/2025 us Provider Scan IMG DIAGNOSTIC ORDERABLES Final Result Performing Organization Address [facility] Co de Phone Number SCAN * EXTERNAL GASTROENTEROLOGY REFERRAL (03/26/2025 12:00 AM CDT) 03/26/2025 Marco Woods MD OUTPT REFERRALS EXT/INT Final Result Performing Organization Address [facility] de Phone Number SCAN * XR CHEST [...] signed by Lavelle PITT: SWEETIE Report ID: [id number] Reading Location: [place] [address] Procedure Note Lavelle Gu MD - 03/09/2025 [...] signed by Lavelle PITT: SWEETIE Report ID: [id number] Reading Location: [id number] IMPRESSION: No acute cardiopulmonary abnormality. Nikhil Robles [facility] DIAGNOSTIC ORDER KRYS Final Result * TROPONIN I, HIGH SENSITIVITY (HSTRP) (03/09/2025 6:37 PM CDT) TROPONIN I, HIGH SENSITIVITY- LEACH 3 <=14 ng/L 03/09/2025 7:41 PM CDT [facility] Comment: High-sensitivity troponin I results are reported in ng/L making the result appear to be 1,000 times higher than the contemporary troponin I value which is reported in ng/ml. Results from [facility]. Blood Venipuncture / Unknown 03/09/2025 6:37 PM CDT 03/09/2025 7:14 PM CDT Nikhil Robles PAC CHEMISTRY ORDERABLES Final Result [facility] [address] [place] [address] * (ABNORMAL) CBC with Auto Differential (03/09/2025 6:37 PM CDT) Only the most recent of2 resultswithin the time period is included. WBC 13.50(H) 4.00 - 12.00 10(3)/mcL 03/09/2025 7:53 PM CDT [facility] RBC 4.10 3.80 - 5.30 10(6)/mcL 03/09/2025 7:53 PM CDT [facility] HEMOGLOBIN (HGB) 11.7(L) 12.0 - 15.8 g/dL 03/09/2025 7:53 PM CDT [facility] HEMATOCRIT (HCT) 36.7 36.0 - 47.0 % 03/09/2025 7:53 PM CDT [facility] MCV 89.5 82.0 - 96.0 fL 03/09/2025 7:53 PM CDT [facility] MCH 28.5 26.0 - 34.0 pg 03/09/2025 7:53 PM CDT [facility] MCHC 31.9 31.0 - 36.0 g/dL 03/09/2025 7:53 PM CDT [facility] PLATELET COUNT 698(H) 140 - 440 10(3)/mcL 03/09/2025 7:53 PM CDT [facility] RDW 16.2(H) 11.8 - 15.5 % [...] Robles PAC HEMATOLOGY ORDERABLE S Final Result [facility] [address] [place] [address] * Magnesium (03/09/2025 6:37 PM CDT) MAGNESIUM 1.6 1.6 - 2.6 mg/dL 03/09/2025 7:37 PM CDT [facility] Blood Venipuncture / Unknown 03/09/2025 6:37 PM CDT 03/09/2025 7:14 PM CDT Nikhil Robles PAC CHEMISTRY ORDERABLES Final Result Performing Organization Address City/[facility]/ZIP Co de Phone Number [facility] [address] [place] [address] * (ABNORMAL) CMP (03/09/2025 6:37 PM CDT) [...] - 30 mmol/L 03/09/2025 7:37 PM CDT [facility] ANION GAP 13.7 <18.0 mmol/L 03/09/2025 7:37 PM CDT [facility] GLUCOSE 110(H) 70 - 99 mg/dL 03/09/2025 7:37 PM CDT [facility] BUN 14 10 - 20 mg/dL 03/09/2025 7:37 PM CDT [facility] CREATININE, BLOOD 0.64 0.60 - 1.00 mg/dL 03/09/2025 7:37 PM CDT [facility] BUN/CREATININE RATIO 22(H) 12 - 20 ratio 03/09/2025 7:37 PM CDT [facility] SYSTEM LAB TOTAL PROTEIN 7.5 6.0 - 8.0 g/dL 03/09/2025 7:37 PM CDT [facility] ALBUMIN 3.7 3.5 - 5.0 g/dL 03/09/2025 7:37 PM CDT [facility] A/G RATIO 1.0 1.0 - 2.2 03/09/2025 7:37 PM CDT [facility] CALCIUM 9.0 8.7 - 10.5 mg/dL 03/09/2025 7:37 PM CDT [facility] T BILI 0.2 0.2 - 1.2 mg/dL 03/09/2025 7:37 PM T [facility] SGOT (AST) 57(H) <43 U/L 03/09/2025 7:37 PM T [facility] SGPT (ALT) 58(H) <56 U/L 03/09/2025 7:37 PM T [facility] ALKALINE PHOSPHATASE 212(H) 40 - 150 U/L 03/09/2025 7:37 PM T [facility] GFR, ESTIMATED >60 >=60 03/09/2025 7:37 PM T [facility] Comment: Creatinine Clearance is the preferred [...] CHEMISTRY ORDERABLES Final Result Performing Organization Address City/[facility]/ZIP Co de Phone Number [facility] [address] [place] [address] * B-Type Natriuretic Peptide (BNP) (03/09/2025 6:37 PM CDT) Only the most recent of2 resultswithin the time period is included. B TYPE NATRIURETIC PEPTIDE <15 <100 pg/mL 03/09/2025 7:54 PM CDT [facility] Blood Venipuncture / Unknown 03/09/2025 6:37 PM CDT 03/09/2025 7:14 PM CDT Nikhil Robles PAC CHEMISTRY ORDERABLES Final Result [facility] [address] [place] [address] * EKG 12 LEAD (03/09/2025 6:16 PM CDT) Ventricular Rate 62 BPM EXTERNAL EKG Atrial Rate 62 BPM EXTERNAL EKG P-R Interval 160 ms EXTERNAL EKG QRS Duration 114 ms EXTERNAL EKG Q-T Duration 470 ms EXTERNAL EKG QTC CALCULATION 477 ms EXTERNAL EKG P Redding 36 degrees EXTERNAL EKG R Redding -42 degrees EXTERNAL EKG T Redding 24 degrees EXTERNAL EKG 03/09/2025 6:16 PM CDT Impressions EXTERNAL EKG - 03/10/2025 10:14 AM CDT Normal sinus rhythm Left axis deviation Right bundle branch block Abnormal ECG When compared with ECG of 25-JUN-2024 23:32, Sinus rhythm has replaced Atrial fibrillation Vent. rate has decreased BY 77 BPM Confirmed by Karin Strong ([id number]) on 03/10/2025 10:14:45 AM Narrative Procedure Note Karin Strong DO - 03/10/2025 IMPRESSION: Normal sinus rhythm Left axis deviation Right bundle branch block Abnormal ECG When compared with ECG of 25-JUN-2024 23:32, Sinus rhythm has replaced Atrial fibrillation Vent. rate has decreased BY 77 BPM Confirmed by Karin Strong ([id number]) on 03/10/2025 10:14:45 AM Tyrone Maurice MD IMG ECG ORDERABLES Final Result EXTERNAL EKG * EKG SCAN (03/09/2025 12:00 [...] Marco Carrillo M.D. MF: FRANNY Report ID: [id number] Reading Location: [id number] Procedure Note Marco Carrillo, DO - 03/09/2025 [...] Marco Carrillo M.D. MF: FRANNY Report ID: [id number] Reading Location: [id number] IMPRESSION: No acute cardiopulmonary abnormality. Marco Woods MD IMG DIAGNOSTIC ORDERABLES Fin al Result * HM COLONOSCOPY (12/11/2024 12:00 AM CARE TEAM COORDINATOR SCHEDULER) 12/11/2024 Provider Scan PROCEDURE/MINOR SURGICAL ORDERAB LES Final Result SCAN * YU BONE DENSITOMETRY AXIAL SKELETON (11/28/2024 2:24 PM CARE TEAM COORDINATOR SCHEDULER) Anatomical Region Laterality Modality BODY N/A Computed Radiogr aphy 12/01/2024 9:02 AM CARE TEAM COORDINATOR SCHEDULER Impressions 12/01/2024 9:05 AM CARE TEAM COORDINATOR SCHEDULER IMPRESSION: Low bone mass REFERENCE: Bone mineral [...] of Osteoporosis (http://www.nof.org/professionals/clinical-guidelines) Narrative 12/01/2024 9:05 AM CARE TEAM COORDINATOR SCHEDULER EXAM DESCRIPTION: YU BONE DENSITOMETRY AXIAL SKELETON REASON FOR STUDY: 69 y/o year old F with given history of: Hyperparathyroidism. Postmenopausal status. History of prior fracture and secondary osteoporosis. Patient previously took vitamin-D. Patient takes Prolia. Register In Chancery/Model: ContactMonkey (S/N [id number]) Facility LSC value of 0.028 for the [...] Kaitlin Weems M.D. TW: TW Report ID: [id number] Reading Location: [id number] Procedure Note Kaitlin Weems MD - 12/01/2024 EXAM DESCRIPTION: YU BONE DENSITOMETRY AXIAL SKELETON REASON FOR STUDY: 69 y/o year old F with given history of: Hyperparathyroidism. Postmenopausal status. History of prior fracture and secondary osteoporosis. Patient previously took vitamin-D. Patient takes Prolia. Register In Chancery/Model: ContactMonkey (S/N [id number]) Facility LSC value of 0.028 for the [...] Kaitlin Weems M.D. TW: TW Report ID: [id number] Reading Location: [place] [address] IMPRESSION: Low bone mass REFERENCE: Bone mineral [...] to exams dated: 01/03/2021, 02/13/2022, and 02/06/2018 [facility]. BREAST TISSUE:The tissue of both breasts is [...] exam. Electronically signed by: Claudia guevara/declan:05/08/2023 19:31:07 Travel Guide(s): RT Tuan(R)(M), [facility] letter sent: Normal Exam Reading location: [facility] BI-RADS: 2 Benign Procedure Note [...] to exams dated: 01/03/2021, 02/13/2022, and 02/06/2018 [facility]. BREAST TISSUE:The tissue of both breasts is [...] exam. Electronically signed by: Claudia Acosta M.D. ll/declan:05/08/2023 19:31:07 Travel Guide(s): RT Tuan(R)(M), [facility] letter sent: Normal Exam Reading location: [facility] BI-RADS: 2 Benign us Mraco Woods MD IMG MAMMO ORDERABLES Final Re sult * HEPATITIS PANEL ACUTE (AHP) (02/23/2023 12:00 AM CDT) 02/23/2023 us Provider Scan HEMATOLOGY ORDERABLES Final Resu lt SCAN from Last 3 Months or Most Recently Relevant to Health Maintenance Insurance MEDICAID [place] MEDICARE C [employer] Advance Directives Documents on File Type Date Recorded Patient Clerical Adviser Expl anation Power of Rotary Driller for Health Care 11/27/2022 5:01 PM POA-HC, 11/26/2022 POLST/POST/IN DNR 11/27/2022 5:01 PM POLST, 11/26/2022 Other [...] measures to stabilize the patient. Care Teams Client Application Support Engineer Relationship Specialty Start Date End Date Marco Woods MD #2 [facility] [address] [place] [address] PCP - General Family Medicine 11/22/17 Kirsten Niño MD #2 [facility] [address] [place] [address] Consulting Physician Endocrinology 07/17/22 Chin Burrows MD #2 [facility] [address] [place] [address] Consulting Physician General Surgery 11/22/22 Michelle Mendes APRN, MARSHMALLOW MAKER #2 [facility] [address] [place] [address] Nurse Practitioner Advanced Practice Nurse 08/14/22 Chantelle Nix APRN, MARSHMALLOW MAKER #2 [place] [address] Nurse Practitioner Advanced Practice Nurse 02/19/24 Analia Meza MD #[address] [address] Consulting Physician Otolaryngology 05/11/25
--- OUTSIDE RECORDS SUMMARY | 2025-05-28 08:49 | XMS_ITS | Encounter Summary ---
Author Organization [facility] Address [address] [place] [address] Phone Care Team Providers Care Cold Patcher Name Role Phone Marco Woods MD Primary Care Provider Kirsten Niño MD Unavailable Chin Burrows MD Unavailable Michelle Mendes BUSINESS ETHICS PROFESSOR, PRODUCTION UTILITY WORKER Unavailable Chantelle Nix APRN, PRODUCTION UTILITY WORKER Unavailable Analia Meza MD Unavailable [phone] Encounter Details Date Type Department Care Team (Late st Contact Info) Description 02/12/2024 Telephone [facility] [address] [place] [address] Marco Woods MD #2 [facility] [address] [place], [place] [id number] Social History Tobacco Use Types Packs/Day Years Used Date Smoking Tobacco: Never Smokeless Tobacco: Never Alcohol Use Standard Drinks/Week Comments Not Currently 0 (1 standard drink = 0.6 oz pur e alcohol) [facility] Utilities Answer Date Recorded In [...] declined 11/28/2023 How often do you attend mandaeism or hoahaoism serv ices? Patient declined 11/28/2023 Do you belong to any clubs o r organizations such as mandaeism groups, unions, fraternal or athletic groups, or [...] Total Score - Questions 1-9 18 10/24 [facility] - Occupational Stress Questionnaire Answer Date [...] Sex Assigned at Female 11/22/2023 11:58 AM GARBAGE COLLECTION SUPERVISOR Legal Sex Female 11:34 PM CDT Gender Identity Female 11/22/2023 11:58 AM GARBAGE COLLECTION SUPERVISOR Sexual Orientation Not on file Occupation Industry Job Start Date Job End Date disabled Not on file Not on file Not on file documented as of this encounter Plan of Treatment Upcoming Encounters Date Type Department Care Team (Late st Contact Info) Description 06/12/2025 11:00 AM CDT Office Visit [facility] - Family Medicine - [place] [address] [place] [address] Marco Woods MD #[address] [facility] [address] [place] [address] 07/01/2025 11:00 AM CDT Office Visit [facility] Medical Group - Ear, Nose & Throat - [place] [address] [address] Analia Meza MD #2 [facility] [address] [place] [address] 07/03/2025 5:30 PM CDT [facility] [address] [place] [phone] Analia Meza MD #2 [facility] [address] [place] [address] Discharge Disposition: Discharged to home or Selfcare 07/17/2025 10:30 AM CDT Office Visit [facility] - Pulmonology & Sleep Medicine - [place] #[address] [place] [address] Michelle Mendes APRN, PRODUCTION UTILITY WORKER #2 [facility] [address] [place] [address] 08/11/2025 9:45 AM CDT Office Visit [facility] Medical [facility] - Endocrinology - [place] [address] [place] [address] Kirsten Niño MD #[address] [address] documented as of this encounter Visit Diagnoses Not on filedocumented in this encounter Additional Health Concerns Infection Onset Date Last Indicated Resolved Time COVID - 19 06/25/2024 06/25/2024 06/25/2024 6:36 PM CDT Assessment Noted Time PHQ-9 Depression Total Score: 18 024 10:00 AM GARBAGE COLLECTION SUPERVISOR documented as of this encounter Care Teams Cold Patcher Relationship Specialty Start Date End Date Marco Woods MD #2 [facility] [address] [place] [address] PCP - General Family Medicine 11/22/17 Kirsten Niño MD #[address] [phone] Consulting Physician Endocrinology 07/17/22 Chin Burrows MD #[address] [phone] Consulting Physician General Surgery 11/22/22 Michelle Mendes APRN, PRODUCTION UTILITY WORKER #[address] [address] Nurse Practitioner Advanced Practice Nurse 08/14/22 Chantelle Nix APRN, PRODUCTION UTILITY WORKER #2 [place] [address] Nurse Practitioner Advanced Practice Nurse 02/19/24 Analia Meza MD #[address] [address] Consulting Physician Otolaryngology 05/11/25 documented as of this encounter
--- OUTSIDE RECORDS SUMMARY | 2025-05-28 08:49 | XMS_ITS | Encounter Summary ---
Author Organization [facility] Address [address] [place] [address] Phone Care Team Providers Care Leather Production Artisan Name Role Phone Marco Woods MD Primary Care Provider Kirsten Nñio MD Unavailable Chin Burrows MD Unavailable Michelle Mendes POWER NUT RUNNER OPERATOR, AGRICULTURE TECHNICIAN Unavailable Chantelle Nix APRN, AGRICULTURE TECHNICIAN Unavailable Analia Meza MD Unavailable [phone] Encounter Details Date Type Department Care Team (Late st Contact Info) Description 03/04/2024 Telephone [facility] [address] [place] [address] Marco Woods MD #2 [facility] [place] [address] Social History Tobacco Use Types Packs/Day Years Used Date Smoking Tobacco: Never Smokeless Tobacco: Never Alcohol Use Standard Drinks/Week Comments Not Currently 0 (1 standard drink = 0.6 oz pur e alcohol) [facility] Utilities Answer Date Recorded In [...] How often do you attend rastafari or pentecostalism serv ices? Patient declined 11/28/2023 Do you [...] 10/24 [facility] - Occupational Stress Questionnaire [...] Assigned at Female 11/22/2023 11:58 AM DIRECTOR SPECIAL EDUCATION Legal Sex Female 11:34 PM CDT Gender Identity Female 11/22/2023 11:58 AM DIRECTOR SPECIAL EDUCATION Sexual Orientation Not on file Occupation Industry Job Start Date Job End Date disabled Not on file Not on file Not on file documented as of this encounter Plan of Treatment Upcoming Encounters Date Type Department Care Team (Late st Contact Info) Description 06/12/2025 11:00 AM CDT Office Visit [facility] - Family Medicine - [place] [address] [place] [address] Marco Woods MD #[address] [facility] [address] [place] [address] 07/01/2025 11:00 AM CDT Office Visit [facility] Medical Group - Ear, Nose & Throat - [place] #[address] [place] [address] Analia Meza MD #2 [facility] [address] [place] [address] 07/03/2025 5:30 PM CDT [facility] [address] [place] [phone] Analia Meza MD #2 [facility] [address] [place] [address] Discharge Disposition: Discharged to home or Selfcare 07/17/2025 10:30 AM CDT Office Visit [facility] - Pulmonology & Sleep Medicine - [place] #[address] [place] [address] Michelle Mendes APRN, AGRICULTURE TECHNICIAN #2 [facility] [address] [place] [address] 08/11/2025 9:45 AM CDT Office Visit [facility] Medical [facility] - Endocrinology - [place] #[address] [place] [address] Kirsten Niño MD #[address] [address] documented as of this encounter Visit Diagnoses Not on filedocumented in this encounter Additional Health Concerns Infection Onset Date Last Indicated Resolved Time COVID - 19 06/25/2024 06/25/2024 06/25/2024 6:36 PM CDT Assessment Noted Time PHQ-9 Depression Total Score: 18 024 10:00 AM DIRECTOR SPECIAL EDUCATION documented as of this encounter Care Teams Leather Production Artisan Relationship Specialty Start Date End Date Marco Woods MD #2 [facility] [address] [place] [address] PCP - General Family Medicine 11/22/17 Kirsten Niño MD #[address] [phone] Consulting Physician Endocrinology 07/17/22 Chin Burrows MD #[address] [phone] Consulting Physician General Surgery 11/22/22 Michelle Mendes APRN, AGRICULTURE TECHNICIAN #[address] [address] Nurse Practitioner Advanced Practice Nurse 08/14/22 Chantelle Nix APRN, AGRICULTURE TECHNICIAN #2 [place] [address] Nurse Practitioner Advanced Practice Nurse 02/19/24 Analia Meza MD #[address] [address] Consulting Physician Otolaryngology 05/11/25 documented as of this encounter
--- OUTSIDE RECORDS SUMMARY | 2025-05-28 08:49 | XMS_ITS | Encounter Summary ---
Author Organization [facility] Address [address] [place] [address] Phone Care Team Providers Care Community Services Officer Name Role Phone Marco Woods MD Primary Care Provider [phone] Kirsten Niño MD Unavailable Chin Burrows MD Unavailable Kelsea Root RN Unavailable Unavailable Michelle Mendes APRN, AMBULANCE ASSISTANT Unavailable Chantelle Nix APRN, AMBULANCE ASSISTANT Unavailable Analia Meza MD Unavailable [phone] Encounter Details Date Type Department Care Team (Late st Contact Info) Description 11/07/2022 [facility] [address] [place] [address] Chin Burrows MD #2 [facility] [address] [place] [address] Pre-op testing (Primary Dx) Social History Tobacco Use Types Packs/Day Years Used Date Smoking Tobacco: Never Smokeless Tobacco: Never Alcohol Use Standard Drinks/Week Comments Not Currently 0 (1 standard drink = 0.6 oz pur e alcohol) Sexually Active Control Partners Comments Not Currently Comments No Sex and Gender Information Value Date Recorded Sex Assigned at Female 11/22/2023 11:58 AM REMOTE SENSING RESEARCH SCIENTIST Legal Sex Female 11:34 PM CDT Gender Identity Female 11/22/2023 11:58 AM REMOTE SENSING RESEARCH SCIENTIST Sexual Orientation Not on file Occupation Industry Job Start Date Job End Date disabled Not on file Not on file Not on file COVID-19 Exposure Response Date Recorded In the last 10 days, have yo u been in contact with someone who was confirmed or suspected to have Coronavirus/COVID-19? No / Unsure 11/07/2022 1:33 PM REMOTE SENSING RESEARCH SCIENTIST documented as of this encounter Plan of Treatment Upcoming Encounters Date Type Department Care Team (Late st Contact Info) Description 06/12/2025 11:00 AM CDT [facility] Visit [facility] - [facility] Medicine - [place] #2 [place] [address] Marco Woods MD #[address] [address] 07/01/2025 11:00 AM CDT Office Visit [facility] Medical [facility] - Ear, Nose & Throat - [place] #2 [place] [address] Analia Meza MD #[address] [phone] 07/03/2025 5:30 PM CDT [facility] [address] [place] [address] Analia Meza MD #[address] [address] Discharge Disposition: Discharged to home or Selfcare 07/17/2025 10:30 AM CDT [facility] - Pulmonology & Sleep Medicine - [place] #[address] [place] [address] Michelle Mendes APRN, AMBULANCE ASSISTANT #2 [facility] [address] [place] [address] 08/11/2025 9:45 AM CDT Office Visit [facility] - Endocrinology - [place] #[address] [facility] [place] [address] Kirsten Niño MD #2 [facility] [address] [place] [address] documented as of this encounter Results * SARS-COV-2 BY MOLECULAR (11/13/2022 6:21 AM REMOTE SENSING RESEARCH SCIENTIST) SARSCOV2 NOT DETECTED (Referenc e Range for this test is Not Detected) [facility] ID NOW 11/13/2022 7:17 AM REMOTE SENSING RESEARCH SCIENTIST [facility] Comment:This test was perfor med by a MOLECULAR, NON-PCR method Other NASOPHARYNGEAL STRUCTURE / Unknown Non-Phlebotomy Collection / Unknown 11/13/2022 6:21 AM REMOTE SENSING RESEARCH SCIENTIST 11/13/2022 7:02 AM REMOTE SENSING RESEARCH SCIENTIST Narrative [facility] - 11/13/2022 7:17 AM REMOTE SENSING RESEARCH SCIENTIST This test has been authorized by the [...] information for Clinicians can be found at: https://www.fda.gov/media/583914/download Additional information for Patients can be found at: https://www.fda.gov/media/742772/download Chin Burrows MD MICROBIOLOGY - GENERA L ORDERABLES Final Result [facility] #1 [facility] [place] [address] documented in this encounter Visit Diagnoses Diagnosis Pre-op testing- Primary Preoperative examination, unspecified documented in this encounter Additional Health Concerns Infection Onset Date Last Indicated Resolved Time COVID - 19 11/20/2022 11/20/2022 11/24/2022 8:51 AM REMOTE SENSING RESEARCH SCIENTIST COVID - 19 12/31/2022 12/31/2022 01/10/2023 12:1 8 AM CDT COVID - 19 Confirmed 12/31/2022 12/31/2022 023 12:17 AM CDT COVID - 19 06/01/2023 06/01/2023 06/01/2023 8:16 AM CDT COVID - 19 11/01/2023 11/01/2023 11/11/2023 12:1 6 AM REMOTE SENSING RESEARCH SCIENTIST COVID - 19 06/25/2024 06/25/2024 06/25/2024 6:36 PM CDT Assessment Noted Time PHQ-9 Depression Total Score: 0 11/22/19 18 10:00 AM REMOTE SENSING RESEARCH SCIENTIST documented as of this encounter Care Teams Community Services Officer Relationship Specialty Start Date End Date Marco Woods MD #2 [facility] [address] [place] [address] PCP - General Family Medicine 11/22/17 Kirsten Niño MD #2 [facility] [address] [place] [address] Consulting Physician Endocrinology 07/17/22 Chin Burrows MD #2 [facility] [address] [place] [address] Consulting Physician General Surgery 11/22/22 Kelsea Root, JUWAN [place] Fermentation Engineer 06/15/23 08/26/23 Michelle Mendes APRN, AMBULANCE ASSISTANT #2 [facility] [address] [place] [address] Nurse Practitioner Advanced Practice Nurse 08/14/22 Chantelle Nix APRN, DREW #[address] [place] [address] Nurse Practitioner Advanced Practice Nurse 02/19/24 Analia Meza MD [address] [facility] [address] [phone] Consulting Physician Otolaryngology 05/11/25 documented as of this encounter
--- OUTSIDE RECORDS SUMMARY | 2025-05-28 08:49 | XMS_ITS | Encounter Summary ---
Author Organization [facility] Address [address] [address] Phone Care Team Providers Care Entry Level Web Developer Name Role Phone Marco Woods MD Primary Care Provider [phone] Kirsten Niño MD Unavailable Chin Burrows MD Unavailable Michelle Mendes APRN, HOME ECONOMICS EXTENSION WORKER Unavailable Chantelle Nix APRN, HOME ECONOMICS EXTENSION WORKER Unavailable Analia Meza MD Unavailable [phone] Reason for Visit * Reason Comments Medication Refill Encounter Details Date Type Department Care Team (Late st Contact Info) Description 01/01/2024 Refill [facility] - Family Medicine - [place] [address] [place] [address] Marco Woods MD [address] [address] Medication Refill Social History Tobacco Use Types Packs/Day Years Used Date Smoking Tobacco: Never Smokeless Tobacco: Never Alcohol Use Standard Drinks/Week Comments Not Currently 0 (1 standard drink = 0.6 oz pur e alcohol) [facility] Utilities Answer Date Recorded In the past 12 months has [employer] electric, gas, oil, or water company threatened [...] declined 11/28/2023 How often do you attend anabaptism or buddhist serv ices? Patient declined 11/28/2023 Do you belong to any clubs o r organizations such as anabaptism groups, unions, fraternal or athletic groups, or [...] Total Score - Questions 1-9 18 10/24 [facility] - Occupational Stress Questionnaire Answer [...] care facility (including now)? Patient declined 11/28/2023 Education Answer Date Recorded What is the highest level of school you have completed or the highest degree you have received? 12th grade 04/03/2023 Sexually Active Control Partners Comments Not Currently Comments No Sex and Gender Information Value Date Recorded Sex Assigned at Female 11/22/2023 11:58 AM DIGITAL IMAGER Legal Sex Female 11:34 PM CDT Gender Identity Female 11/22/2023 11:58 AM DIGITAL IMAGER Sexual Orientation Not on file Occupation Industry Job Start Date Job End Date disabled Not on file Not on file Not on file documented as of this encounter Miscellaneous Notes * Telephone Encounter - Amada Orozco RN - 01/01/2024 2:40 PM CDT gned Yesterday (12/31/2023): Tdnypxnxihu-Mmthmdrps-Gmegbr (Trelegy Ellipta) 100-62.5-25 MCG/ACT AEROSOL POWDER, BREATH ACTIVATED Sig: take 1 Puff by inhalation daily. Disp: 60 Each Refills: 3 Signed by: Michelle Mendes APRN HOME ECONOMICS EXTENSION WORKER documented in this encounter Plan of Treatment Upcoming Encounters Date Type Department Care Team (Late st Contact Info) Description 06/12/2025 11:00 AM CDT [facility] - Family Medicine - [place] #2 [place] [address] Marco Woods MD #2 [facility] [address] [place] [address] 07/01/2025 11:00 AM CDT Office Visit [facility] - Ear, Nose & Throat - [place] #2 [place] [address] Analia Meza MD #[address] [phone] 07/03/2025 5:30 PM CDT [facility] [address] [place] [address] Analia Meza MD #[address] [phone] Discharge Disposition: Discharged to home or Selfcare 07/17/2025 10:30 AM CDT [facility] - [place] #2 [place] [address] Michelle Mendes APRN, HOME ECONOMICS EXTENSION WORKER #2 [facility] [address] [place] [address] 08/11/2025 9:45 AM CDT [facility] - Endocrinology - [place] #2 [place] [address] Kirsten Niño MD #[address] [phone] documented as of this encounter Visit Diagnoses Not on filedocumented in this encounter Additional Health Concerns Infection Onset Date Last Indicated Resolved Time COVID - 19 06/25/2024 06/25/2024 06/25/2024 6:36 PM CDT Assessment Noted Time PHQ-9 Depression Total Score: 18 024 10:00 AM DIGITAL IMAGER documented as of this encounter Care Teams Entry Level Web Developer Relationship Specialty Start Date End Date Marco Woods MD #2 [facility] [address] [place] [address] PCP - General Family Medicine 11/22/17 Kirsten Niño MD #2 [facility] [address] [place] [phone] Consulting Physician Endocrinology 07/17/22 Chin Burrows MD #2 [facility] [address] [place] [address] Consulting Physician General Surgery 11/22/22 Michelle Mendes APRN, HOME ECONOMICS EXTENSION WORKER [facility] [address] [place] [address] Nurse Practitioner Advanced Practice Nurse 08/14/22 Chantelle Nix APRN, HOME ECONOMICS EXTENSION WORKER #2 [place] [address] Nurse Practitioner Advanced Practice Nurse 02/19/24 Analia Meza MD #2 [facility] [address] [place] [address] Consulting Physician Otolaryngology 05/11/25 documented as of this encounter
--- OUTSIDE RECORDS SUMMARY | 2025-05-28 08:49 | XMS_ITS | Encounter Summary ---
Author Organization [facility] Address [address] [place] [address] Phone Care Team Providers Care Senior Account Clerk Name Role Phone Marco Woods MD Primary Care Provider [phone] Kirsten Niño MD Unavailable Chin Burrows MD Unavailable Michelle Mendes APRN, INTERSTATE BUS DRIVER Unavailable Chantelle Nix APRN, INTERSTATE BUS DRIVER Unavailable Analia Meza MD Unavailable [phone] Reason for Visit * Reason Comments Medication Refill Encounter Details Date Type Department Care Team (Late st Contact Info) Description 01/22/2024 Refill [facility] Medical Group - Family Medicine - [place] [address] [place] [address] Marco Woods MD [address] [address] Medication Refill Social History Tobacco Use Types Packs/Day Years Used Date Smoking Tobacco: Never Smokeless Tobacco: Never Alcohol Use Standard Drinks/Week Comments Not Currently 0 (1 standard drink = 0.6 oz pur e alcohol) [facility] Utilities Answer Date Recorded In the past 12 months has [employer] electric, gas, oil, or water company threatened [...] How often do you attend worship or mu-ism serv ices? Patient declined 11/28/2023 Do you [...] 10/24 [facility] - Occupational Stress Questionnaire Answer [...] Sex Assigned at Female 11/22/2023 11:58 AM PREFABRICATOR Legal Sex Female 11:34 PM CDT Gender Identity Female 11/22/2023 11:58 AM PREFABRICATOR Sexual Orientation Not on file Occupation Industry [...] MG Tablet Controlled Release [Pharmacy Med Name: [facility] [facility] 300MG TBCR] 56 Tablet 5 Sig: TAKE 1 TABLET BY MOUTH TWICE A DAY Not Delegated - Antimanic Agents Protocol Failed - 01/22/2024 9:25 AM Failed - This refill cannot be delegated Passed - Visit with relevant provider in past 12 months or upcoming 90 days Recent Visits Date Type Provider Dept 12/05/23 Office Visit [facility] 11/20/23 Office Visit Ronald Shaffer TEST FACILITY ENGINEER, INTERSTATE BUS DRIVER [facility] [place] 10/10/23 Office Visit Rebecca Liu TEST FACILITY ENGINEER, INTERSTATE BUS DRIVER [facility] [place] 08/24/23 Office Visit [facility] [place] 08/02/23 Office Visit Marco Woods MD [facility] [place] 05/01/23 Office Visit [facility] [place] 04/18/23 Office Visit [facility] [place] 04/03/23 Office Visit [facility] [place] 03/12/23 [facility] Office Visit Mirtha Steiner APRN, [facility] Showing recent visits within past 365 days and meeting all other requirements Future Appointments Date Type Provider Dept 03/12/24 Appointment Marco Woods MD [facility] Showing future appointments within next 90 days and meeting all other requirements documented in this encounter Plan of Treatment Upcoming Encounters Date Type Department Care Team (Late st Contact Info) Description 06/12/2025 11:00 AM CDT Office Visit [facility] Medical [facility] - Family Medicine - [place] #2 [place] [address] Marco Woods MD #[address] [address] 07/01/2025 11:00 AM CDT Office Visit [facility] Medical [facility] - Ear, Nose & Throat - [place] #2 [place] [address] Analia Meza MD #[address] [address] 07/03/2025 5:30 PM CDT Appointment [facility] [address] [place] [address] Analia Meza MD #2 [facility] [address] [place] [address] Discharge Disposition: Discharged to home or Selfcare 07/17/2025 10:30 AM CDT Office Visit [facility] - Pulmonology & Sleep Medicine - [place] #2 [place] [address] Michelle Mendes APRN, INTERSTATE BUS DRIVER #2 [facility] [address] [place] [address] 08/11/2025 9:45 AM CDT Office Visit [facility] Medical [facility] Endocrinology - [place] #2 [place] [address] Kirsten Niño MD #[address] [address] documented as of this encounter Visit Diagnoses Not on filedocumented in this encounter Additional Health Concerns Infection Onset Date Last Indicated Resolved Time COVID - 19 06/25/2024 06/25/2024 06/25/2024 6:36 PM CDT Assessment Noted Time PHQ-9 Depression Total Score: 18 024 10:00 AM PREFABRICATOR documented as of this encounter Care Teams Senior Account Clerk Relationship Specialty Start Date End Date Marco Woods MD #[address] [address] PCP - General Family Medicine 11/22/17 Kirsten Niño MD #[address] [address] Consulting Physician Endocrinology 07/17/22 Chin Burrows MD #2 [facility] [address] [place] [address] Consulting Physician General Surgery 11/22/22 Michelle Mendes APRN, INTERSTATE BUS DRIVER #2 [facility] [address] [place] [address] Nurse Practitioner Advanced Practice Nurse 08/14/22 Chantelle Nix APRN, INTERSTATE BUS DRIVER #2 [place] [address] Nurse Practitioner Advanced Practice Nurse 02/19/24 Analia Meza MD #[address] [phone] Consulting Physician Otolaryngology 05/11/25 documented as of this encounter
--- OUTSIDE RECORDS SUMMARY | 2025-05-28 08:49 | XMS_ITS | Encounter Summary ---
Author Organization [facility] Address [address] [place] [address] Phone Care Team Providers Care Terrazzo Polisher Name Role Phone Marco Woods MD Primary Care Provider Kirsten Niño MD Unavailable Chin Burrows MD Unavailable [phone] Kelsea Root RN Unavailable Unavailable Michelle Mendes APRN, CERTIFIED NURSE PRACTITIONER Unavailable [phone] Chantelle Nix APRN, CERTIFIED NURSE PRACTITIONER Unavailable Analia Meza MD Unavailable [phone] Reason for Visit * Reason Comments Medication Refill Encounter Details Date Type Department Care Team (Late st Contact Info) Description 07/21/2023 [facility]ill [facility] [address] [place] [phone] Marco Woods MD [address] [facility] [address] [address] Medication Refill Social History Tobacco Use Types [...] Assigned at Female 11/22/2023 11:58 AM BOAT WORKER Legal Sex Female 11:34 PM CDT Gender Identity Female 11/22/2023 11:58 AM BOAT WORKER Sexual Orientation Not on file Occupation [...] Description 06/12/2025 11:00 AM CDT Office Visit [facility] Medical Group - [facility] #2 [place] [address] Macro Woods MD #2 [facility] [address] [place] [address] 07/01/2025 11:00 AM CDT Office Visit [facility] Medical [facility] - Ear, Nose & [facility] #2 [place] [address] Analia Meza MD #2 [facility] [address] [place] [address] 07/03/2025 5:30 PM CDT [facility] [address] [place] [address] Analia Meza MD #[address] [phone] Discharge Disposition: Discharged to home or Selfcare 07/17/2025 10:30 AM CDT [facility] #2 [place] [address] Michelle Mendes, K 12 SCHOOL PRINCIPAL, CERTIFIED NURSE PRACTITIONER #2 [facility] [address] [place] [address] 08/11/2025 9:45 AM CDT Office Visit [facility] Medical [facility] - Endocrinology - [place] #2 [place] [address] Kirsten Niño MD #[address] [address] documented as of this encounter Visit Diagnoses Not on filedocumented in this encounter Additional Health Concerns Infection Onset Date Last Indicated Resolved Time COVID - 19 11/01/2023 11/01/2023 11/11/2023 12:1 6 AM BOAT WORKER COVID - 19 06/25/2024 06/25/2024 06/25/2024 6:36 PM CDT Assessment Noted Time PHQ-9 Depression Total Score: 0 11/22/19 10:00 AM BOAT WORKER documented as of this encounter Care Teams Terrazzo Polisher Relationship Specialty Start Date End Date Marco Woods MD #[address] [address] PCP - General Family Medicine 11/22/17 Kirsten Niño MD #[address] [address] Consulting Physician Endocrinology 07/17/22 Chin Burrows MD #2 [facility] [address] [place] [address] Consulting Physician General Surgery 11/22/22 Kelsea Root RN [place] Palliative Senior Np 06/15/23 08/26/23 Michelle Mendes, K 12 SCHOOL PRINCIPAL, CERTIFIED NURSE PRACTITIONER #2 [facility] [address] [place] [address] Nurse Practitioner Advanced Practice Nurse 08/14/22 Chantelle Nix APRN, CERTIFIED NURSE PRACTITIONER #2 [place] [address] Nurse Practitioner Advanced Practice Nurse 02/19/24 Analia Meza MD #[address] [address] Consulting Physician Otolaryngology 05/11/25 documented as of this encounter
--- OUTSIDE RECORDS SUMMARY | 2025-05-28 08:49 | XMS_ITS | Encounter Summary ---
Author Organization [facility] Address [address] [place] [address] Phone Care Team Providers Care Design Engineering Specialist Name Role Phone Marco Woods MD Primary Care Provider Kirsten Niño MD Unavailable Chin Burrows MD Unavailable Michelle Mendes APRN, TELECOMMUNICATIONS LINE INSTALLER Unavailable Chantelle Nix APRN, TELECOMMUNICATIONS LINE INSTALLER Unavailable Analia Meza MD Unavailable [phone] Reason for Visit * Reason Comments Medication Refill Encounter Details Date Type Department Care Team (Late st Contact Info) Description 01/23/2024 Refill [facility] Medical Group - Family Medicine - [place] [address] [place] [address] Marco Woods MD [address] [address] Medication Refill Social History Tobacco Use Types Packs/Day Years Used Date Smoking Tobacco: Never Smokeless Tobacco: Never Alcohol Use Standard Drinks/Week Comments Not Currently 0 (1 standard drink = 0.6 oz pur e alcohol) [facility] Utilities Answer Date Recorded In the past 12 months has [employer] electric, gas, oil, or water company threatened [...] declined 11/28/2023 How often do you attend anabaptist or restoration serv ices? Patient declined 11/28/2023 Do you belong to any clubs o r organizations such as anabaptist groups, unions, fraternal or athletic groups, or [...] - Questions 1-9 18 10/24 [facility] - Occupational [...] Sex Assigned at Female 11/22/2023 11:58 AM PAPER MACHINE OPERATOR Legal Sex Female 11:34 PM CDT Gender Identity Female 11/22/2023 11:58 AM PAPER MACHINE OPERATOR Sexual Orientation Not on file [...] 28 28 Tablet Maria Antonia Galeana MD [facility] - Alt... ATORVASTATIN CALCIUM 20 MG TABS 12/13/2023 21 21 Tablet Maria Antonia Galeana MD [facility] - Alt... ATORVASTATIN 20MG TABLETS 10/06/2023 90 90 Each Marco Woods MD [facility] #... documented in this encounter Plan of Treatment Upcoming Encounters Date Type Department Care Team (Late st Contact Info) Description 06/12/2025 11:00 AM CDT Office Visit [facility] - Family Medicine - [place] #2 [place] [address] Marco Woods MD #2 [facility] [address] [place] [address] 07/01/2025 11:00 AM CDT Office Visit [facility] - Ear, Nose & Throat - [place] #2 [place] [address] Analia Meza MD #[address] [phone] 07/03/2025 5:30 PM CD[facility] [address] [place] [address] Analia Meza MD #[address] [address] Discharge Disposition: Discharged to home or Selfcare 07/17/2025 10:30 AM CDT Office Visit [facility] Medical [facility] - Pulmonology & Sleep Medicine - [place] #2 [place] [address] Michelle Mendes APRN, DREW #2 [facility] [address] [place] [address] 08/11/2025 9:45 AM CDT Office Visit [facility] - Endocrinology - [place] #2 [place] [address] Kirsten Niño MD #[address] [place] [address] documented as of this encounter Visit Diagnoses Not on filedocumented in this encounter Additional Health Concerns Infection Onset Date Last Indicated Resolved Time COVID - 19 06/25/2024 06/25/2024 06/25/2024 6:36 PM CDT Assessment Noted Time PHQ-9 Depression Total Score: 18 024 10:00 AM PAPER MACHINE OPERATOR documented as of this encounter Care Teams Design Engineering Specialist Relationship Specialty Start Date End Date Marco Woods MD #2 [facility] [address] [place] [address] PCP - General Family Medicine 11/22/17 Kirsten Niño MD #2 [facility] [address] [place] [address] Consulting Physician Endocrinology 07/17/22 Chin Burrows MD #[address] [phone] Consulting Physician General Surgery 11/22/22 Michelle Mendes APRN, TELECOMMUNICATIONS LINE INSTALLER #2 [facility] [address] [place] [address] Nurse Practitioner Advanced Practice Nurse 08/14/22 Chantelle Nix APRN, TELECOMMUNICATIONS LINE INSTALLER #2 [place] [address] Nurse Practitioner Advanced Practice Nurse 02/19/24 Analia Meza MD #[address] [phone] Consulting Physician Otolaryngology 05/11/25 documented as of this encounter
--- OUTSIDE RECORDS SUMMARY | 2025-05-28 08:49 | XMS_ITS | Clinical Summary ---
Author Organization [facility] Address [address] [place] [address] Care Team Providers Care Media Reporter Name Role Phone Unavailable Primary Care Provider Unavailabl e Social History Tobacco Use Types Packs/Day Years Used Date Smoking Tobacco: Never Assessed Comments Unknown Sex and Gender Information Value Date Recorded Sex Assigned at Not on file Legal Sex Female 10:57 PM AQUACULTURIST Gender Identity Not on file Sexual Orientation [...]
--- OUTSIDE RECORDS SUMMARY | 2025-05-28 08:49 | XMS_ITS | Encounter Summary ---
Author Organization [facility] Address [address] [place] [address] Phone Care Team Providers Care Pattern Keeper Name Role Phone Marco Woods MD Primary Care Provider [phone] Kirsten Niño MD Unavailable Chin Burrows MD Unavailable Michelle Mendes OUTSIDE INDUSTRIAL SALES REPRESENTATIVE, WHEEL PRESSER Unavailable Chantelle Nix OUTSIDE INDUSTRIAL SALES REPRESENTATIVE, WHEEL PRESSER Unavailable Analia Meza MD Unavailable [phone] Reason for Visit * Reason Onset Date Comments Results 03/09/2025 Encounter Details Date Type Department Care Team (Late st Contact Info) Description 03/09/2025 Telephone [facility] [address] [place] [address] Marco Woods MD #2 [facility] [place] [address] Results Social History Tobacco Use Types Packs/Day Years Used Date Smoking Tobacco: Never Smokeless Tobacco: Never Alcohol Use Standard Drinks/Week Comments Not Currently 0 (1 standard drink = 0.6 oz pur e alcohol) [facility] Utilities Answer Date Recorded In the [...] declined 06/25/2024 How often do you attend advent or baptism serv ices? Patient declined 06/25/2024 Do you belong to any clubs o r organizations such as advent groups, unions, fraternal or athletic groups, or [...] - Questions 1-9 18 10/24 [facility] - Occupational Stress Questionnaire [...] a jail (including now)? Patient declined 11/28/2023 Housing Stability [...] any time in the past 12 m [facility], were you homeless or living in a jail (including now)? Patient unable to answer 06/25/2024 Education Answer Date Recorded What is the highest level of school you have completed or the highest degree you have received? 12th grade 04/03/2023 Sexually Active Control Partners Comments Not Currently Comments No Sex and Gender Information Value Date Recorded Sex Assigned at Female 11/22/2023 11:58 AM FAST FOOD ATTENDANT Legal Sex Female 11:34 PM CDT Gender Identity Female 11/22/2023 11:58 AM FAST FOOD ATTENDANT Sexual Orientation Not on file Occupation [...] Description 06/12/2025 11:00 AM CDT Office Visit [facility] - Family Medicine [facility] #2 [place] [address] Marco Woods MD #[address] [address] 07/01/2025 11:00 AM CDT Office Visit [facility] - Ear, Nose & Throat [facility] #2 [place] [address] Analia Meza MD #[address] [address] 07/03/2025 5:30 PM CD[facility] [address] [place] [address] Analia Meza MD #[address] [address] Discharge Disposition: Discharged to home or Selfcare 07/17/2025 10:30 AM CDT [facility] - [place] #2 [place] [address] Michelle Mendes APRN, WHEEL PRESSER #2 [facility] [address] [place] [address] 08/11/2025 9:45 AM CDT [facility] - Endocrinology - [place] #2 [place] [address] Kirsten Niño MD #[address] [address] documented as of this encounter Visit Diagnoses Not on filedocumented in this encounter Additional Health Concerns Assessment Noted Time PHQ-9 Depression Total Score: 18 024 10:00 AM FAST FOOD ATTENDANT documented as of this encounter Care Teams Pattern Keeper Relationship Specialty Start Date End Date Marco Woods MD #2 [facility] [address] [place] [address] PCP - General Family Medicine 11/22/17 Kirsten Niño MD #[address] [address] Consulting Physician Endocrinology 07/17/22 Chin Burrows MD #[address] [address] Consulting Physician General Surgery 11/22/22 Michelle Mendes APRN, DREW #2 [facility] [address] [place] [address] Nurse Practitioner Advanced Practice Nurse 08/14/22 Chantelle Nix APRN, CNP #[address] [place] [address] Nurse Practitioner Advanced Practice Nurse 02/19/24 Analia Meza MD #[address] [facility] [address] [address] Consulting Physician Otolaryngology 05/11/25 documented as of this encounter
--- OUTSIDE RECORDS SUMMARY | 2025-05-28 08:50 | XMS_ITS | Encounter Summary ---
Author Organization [facility] Address [address] [place] [address] Phone Care Team Providers Care Neuro Ophthalmologist Name Role Phone Marco Woods MD Primary Care Provider Kirsten Niño MD Unavailable Chin Burrows MD Unavailable Michelle Meneds APRN, INVENTORY ASSOCIATE Unavailable Chantelle Nix APRN, INVENTORY ASSOCIATE Unavailable Analia Meza MD Unavailable [phone] Reason for Visit * Reason Comments Medication Refill Encounter Details Date Type Department Care Team (Late st Contact Info) Description 07/07/2024 [facility]ill [facility] - Gastroenterology - [place] #2 [place] [address] Chantelle Nix APRN, INVENTORY ASSOCIATE #2 [place] [address] Medication Refill Social History Tobacco Use Types Packs/Day Years Used Date Smoking Tobacco: Never Smokeless Tobacco: Never Alcohol Use Standard Drinks/Week Comments Not Currently 0 (1 standard drink = 0.6 oz pur e alcohol) [facility] Utilities Answer Date Recorded In the past 12 months has [employer], gas, oil, or water company threatened to [...] declined 06/25/2024 How often do you attend mu-ism or holiness serv ices? Patient declined 06/25/2024 Do you belong to any clubs o r organizations such as mu-ism groups, unions, fraternal or athletic groups, or [...] Total Score - Questions 1-9 18 10/24 [facility] - Occupational Stress Questionnaire Answer Date [...] any time in the past 12 m [facility], were you homeless or [...] Sex Assigned at Female 11/22/2023 11:58 AM ASSOCIATE ATTORNEY Legal Sex Female 11:34 PM CDT Gender Identity Female 11/22/2023 11:58 AM ASSOCIATE ATTORNEY Sexual Orientation Not on file Occupation [...] 11:00 AM CDT [facility] - [facility] - [place] #2 [place] [address] Marco Woods MD #2 [facility] [address] [place] [address] 07/01/2025 11:00 AM CDT Office Visit [facility] - Ear, Nose & Throat - [place] #2 [place] [address] Analia Meza MD #2 [facility] [address] [place] [address] 07/03/2025 5:30 PM CDT [facility]ointment [facility] [address] [place] [address] Analia Meza MD #[address] [address] Discharge Disposition: Discharged to home or Selfcare 07/17/2025 10:30 AM CDT Office [facility] - Pulmonology & Sleep Medicine - [place] #2 [place] [address] Mcihelle Mendes APRN, INVENTORY ASSOCIATE #2 [facility] [address] [place] [address] 08/11/2025 9:45 AM CDT Office Visit [facility] - Endocrinology - [place] #2 [place] [address] Kirsten Niño MD #2 [facility] [address] [place] [address] documented as of this encounter Visit Diagnoses Diagnosis Chronic constipation Unspecified constipation documented in this encounter Additional Health Concerns Assessment Noted Time PHQ-9 Depression Total Score: 18 024 10:00 AM ASSOCIATE ATTORNEY documented as of this encounter Care Teams Neuro Ophthalmologist Relationship Specialty Start Date End Date Marco Woods MD #2 [facility] [address] [place] [address] PCP - General Family Medicine 11/22/17 Kirsten Niño MD #[address] [address] Consulting Physician Endocrinology 07/17/22 Chin Burrows MD #[address] [address] Consulting Physician General Surgery 11/22/22 Michelle Mendes APRN, INVENTORY ASSOCIATE #2 [facility] [address] [place] [address] Nurse Practitioner Advanced Practice Nurse 08/14/22 Chantelle Nix APRN, INVENTORY ASSOCIATE #2 [place] [address] Nurse Practitioner Advanced Practice Nurse 02/19/24 Analia Meza MD #[address] [place] [address] Consulting Physician Otolaryngology 05/11/25 documented as of this encounter
--- OUTSIDE RECORDS SUMMARY | 2025-05-28 08:50 | XMS_ITS | Encounter Summary ---
Author Organization [facility] Address [address] [place] [address] Phone Care Team Providers Care Laborer Laboratory Name Role Phone Marco Woods MD Primary Care Provider Kirsten Niño MD Unavailable Chin Burrows MD Unavailable Kelsea Root RN Unavailable Unavailable Michelle Mendes APRN, FRAUD ANALYST Unavailable Chantelle Nix APRN, FRAUD ANALYST Unavailable Analia Meza MD Unavailable [phone] Encounter Details Date Type Department Care Team (Late st Contact Info) Description 06/05/2023 Telephone [facility] Med Surg [address] [place] [address] Sister Elisabeth Gonzalez RN [place] Social [...] Sex Assigned at Female 11/22/2023 11:58 AM DAIRY EQUIPMENT SPECIALIST Legal Sex Female 11:34 PM CDT Gender Identity Female 11/22/2023 11:58 AM DAIRY EQUIPMENT SPECIALIST Sexual Orientation Not on file Occupation [...] [facility] - [place] #2 [place] [address] Marco Woods MD #2 [facility] [address] [place] [address] 07/01/2025 11:00 AM CDT Office [facility]ose & Throat - [place] #2 [place] [address] Analia Meza MD #[address] [phone] 07/03/2025 5:30 PM CDT [facility] [address] [place] [address] Analia Meza MD #[address] [address] Discharge Disposition: Discharged to home or Selfcare 07/17/2025 10:30 AM CDT Office Visit [facility] - Pulmonology & Sleep Medicine - [place] #2 [place] [address] Michelle Mendes APRN, FRAUD ANALYST #2 [facility] [address] [place] [address] 08/11/2025 9:45 AM CDT Office Visit [facility] Medical [facility] - Endocrinology - [place] #2 [place] [address] Kirsten Niño MD #2 [facility] [address] [place] [address] documented as of this encounter Visit Diagnoses Not on filedocumented in this encounter Additional Health Concerns Infection Onset Date Last Indicated Resolved Time COVID - 19 11/01/2023 11/01/2023 11/11/2023 12:1 6 AM DAIRY EQUIPMENT SPECIALIST COVID - 19 06/25/2024 06/25/2024 06/25/2024 6:36 PM CDT Assessment Noted Time PHQ-9 Depression Total Score: 0 11/22/19 18 10:00 AM DAIRY EQUIPMENT SPECIALIST documented as of this encounter Care Teams Laborer Laboratory Relationship Specialty Start Date End Date Marco Woods MD #2 [facility] [address] [place] [address] PCP - General Family Medicine 11/22/17 Kirsten Niño MD #2 [facility] [address] [place] [address] Consulting Physician Endocrinology 07/17/22 Chin Burrows MD #2 [facility] [address] [place] [address] Consulting Physician General Surgery 11/22/22 Kelsea Root, JUWAN [place] Copper Plate Lithographer 06/15/23 08/26/23 Michelle Mendes APRN, FRAUD ANALYST #2 [facility] [address] [place] [address] Nurse Practitioner Advanced Practice Nurse 08/14/22 Chantelle Nix APRN, FRAUD ANALYST #2 [place] [address] Nurse Practitioner Advanced Practice Nurse 02/19/24 Analia Meza MD #2 [facility] [address] [address] Consulting Physician Otolaryngology 05/11/25 documented as of this encounter
--- OUTSIDE RECORDS SUMMARY | 2025-05-28 08:50 | XMS_ITS | Encounter Summary ---
Author Organization [facility] Address [address] [place] [address] Phone Care Team Providers Care Edge Cutting Machine Operator Name Role Phone Marco Woods MD Primary Care Provider Kirsten Niño MD Unavailable Chin Burrows MD Unavailable Kelsea Root RN Unavailable Unavailable Michelle Mendes APRN, DOLL MAKER Unavailable Chantelle Nix APRN, DOLL MAKER Unavailable Analia Meza MD Unavailable [phone] Reason for Visit * Reason Comments Medication Refill Encounter Details Date Type Department Care Team (Late st Contact Info) Description 01/22/2023 Refill [facility] Endocr[facility]ology - [place] #[address] [place] [address] Kirsten Niño MD #[address] [address] Medication Refill Social History Tobacco Use Types Packs/Day Years Used Date Smoking Tobacco: Never Smokeless Tobacco: Never Alcohol Use Standard Drinks/Week Comments Not Currently 0 (1 standard drink = 0.6 oz pur e alcohol) Sexually Active Control Partners Comments Not Currently Comments No Sex and Gender Information Value Date Recorded Sex Assigned at Female 11/22/2023 11:58 AM RECYCLING TECHNICIAN Legal Sex Female 11:34 PM CDT Gender Identity Female 11/22/2023 11:58 AM RECYCLING TECHNICIAN Sexual Orientation Not on file Occupation [...] 06/12/2025 11:00 AM CDT Office Visit [facility] Medical [facility] - Family Medicine - [place] #2 [place] [address] Marco Woods MD #2 [facility] [address] [place] [address] 07/01/2025 11:00 AM CDT Office Visit [facility] Medical [facility] - Ear, Nose & Throat - [place] #2 [place] [address] Analia Meza MD #2 [facility] [address] [place] [address] 07/03/2025 5:30 PM CDT [facility] [address] [place] [address] Analia Meza MD #[address] [address] Discharge Disposition: Discharged to home or Selfcare 07/17/2025 10:30 AM CDT Office Visit [facility] - Pulmonology & Sleep Medicine - [place] #2 [place] [address] Michelle Mendes APRN, DOLL MAKER #2 [facility] [address] [place] [address] 08/11/2025 9:45 AM CDT Office Visit [facility] - Endocrinology [facility] #[address] [place] [address] Kirsten Niño MD #[address] [address] documented as of this encounter Visit Diagnoses Not on filedocumented in this encounter Additional Health Concerns Infection Onset Date Last Indicated Resolved Time COVID - 06/01/2023 06/01/2023 06/01/2023 8:16 AM CDT COVID - 11/01/2023 11/01/2023 11/11/2023 12:1 6 AM RECYCLING TECHNICIAN COVID - 06/25/2024 06/25/2024 06/25/2024 6:36 PM CDT Assessment Noted Time PHQ-9 Depression Total Score: 0 11/22/19 10:00 AM RECYCLING TECHNICIAN documented as of this encounter Care Teams Edge Cutting Machine Operator Relationship Specialty Start Date End Date Marco Woods MD [facility] [address] [address] PCP - General Family Medicine 11/22/17 Kirsten Niño MD #[address] [address] Consulting Physician Endocrinology 07/17/22 Chin Burrows MD #[address] [address] Consulting Physician General Surgery 11/22/22 Kelsea Root RN [place] Numerical Control Tool Programmer 06/15/23 08/26/23 Michelle Mendes APRN, DOLL MAKER #2 [facility] [address] [place] [address] Nurse Practitioner Advanced Practice Nurse 08/14/22 Chantelle Nix APRN, DOLL MAKER #2 [place] [address] Nurse Practitioner Advanced Practice Nurse 02/19/24 Analia Meza MD #2 [facility] [address] [place] [address] Consulting Physician Otolaryngology 05/11/25 documented as of this encounter
--- OUTSIDE RECORDS SUMMARY | 2025-05-28 08:50 | XMS_ITS | Encounter Summary ---
Author Organization [facility] Address [address] [place] [address] Phone Care Team Providers Care Plywood Scarfer Tender Name Role Phone Marco Woods MD Primary Care Provider Kirsten Niño MD Unavailable Chin Burrows MD Unavailable Michelle Mendes APRN, BISCUITWARE BRUSHER Unavailable Chantelle Nix APRN, BISCUITWARE BRUSHER Unavailable Analia Meza MD Unavailable [phone] Reason for Visit * Reason Comments Medication Refill Encounter Details Date Type Department Care Team (Late st Contact Info) Description 03/18/2024 Refill [facility] - Family Medicine - [place] #[address] [place] [address] Marco Woods MD [facility] [place] [address] Medication Refill Social History Tobacco Use Types Packs/Day Years Used Date Smoking Tobacco: Never Smokeless Tobacco: Never Alcohol Use Standard Drinks/Week Comments Not Currently 0 (1 standard drink = 0.6 oz pur e alcohol) [facility] Utilities Answer Date Recorded In the past 12 months has [employer] electric, gas, oil, or water company threatened [...] declined 11/28/2023 How often do you attend adventism or mormonism serv ices? Patient declined 11/28/2023 Do you [...] 18 10/24 [facility] - Occupational Stress Questionnaire Answer Date [...] Sex Assigned at Female 11/22/2023 11:58 AM COMB WINDER Legal Sex Female 11:34 PM CDT Gender Identity Female 11/22/2023 11:58 AM COMB WINDER Sexual Orientation Not on file Occupation [...] Dept 03/12/24 Office Visit [facility] 02/21/24 Office Visit Amor Pitt [facility] [place] [place] 02/12/24 Office Visit Rebecca Liu, HEATER MECHANIC, BISCUITWARE BRUSHER [facility] [place] [place] 12/05/23 [facility] 11/20/23 Office Visit Ronald Shaffer, HEATER MECHANIC, BISCUITWARE BRUSHER [facility] [place] [place] 10/10/23 Office Visit Rebecca Liu HEATER MECHANIC, [facility] [place] [place] 08/24/23 Office Visit Ranjit Linder MD [facility] [place] [place] 08/02/23 Office Visit [facility] [place] 05/01/23 Office Visit [facility] 04/18/23 Office Visit [facility] Showing recent visits within past 365 days and meeting all other requirements Future Appointments Date Type Provider Dept 04/09/24 Appointment [facility] MD [facility] Showing future appointments within next 90 days and meeting all other requirements * Telephone Encounter - Amada Orozco RN - 03/19/2024 9:39 AM CDT Images from the original note were not included. Dexlansoprazole Dispensed Days Supply Quantity Provider Pharmacy DEXLANSOPRAZOLE 60 MG CPDR 02/21/2024 28 28 Capsule Maria Antonia Galeana MD [facility] - Alt... DEXLANSOPRAZOLE 60 MG CPDR 01/29/2024 28 28 Capsule Maria Antonia Galeana MD [facility] - Alt. documented in this encounter Plan of Treatment Upcoming Encounters Date Type Department Care Team (Late st Contact Info) Description 06/12/2025 11:00 AM CDT Office Visit [facility] Group - Family Medicine - [place] #[address] [place] [address] Marco Woods MD #[address] [address] 07/01/2025 11:00 AM CDT Office Visit [facility] Group - Ear, Nose & Throat - [place] #2 [place] [address] Analia Meza MD #2 [facility] [address] [address] 07/03/2025 5:30 PM CD[facility] [place] [address] Analia Meza MD #2 [facility] [address] [address] Discharge Disposition: Discharged to home or Selfcare 07/17/2025 10:30 AM CDT Office Visit [facility] Medical [facility] - Pulmonology & Sleep Medicine - [place] #2 [place] [address] Michelle Mendes APRN, BISCUITWARE BRUSHER #[address] [address] 08/11/2025 9:45 AM CDT [facility] - [place] #2 [place] [address] Kirsten Niño MD #[address] [place] [address] documented as of this encounter Visit Diagnoses Not on filedocumented in this encounter Additional Health Concerns Infection Onset Date Last Indicated Resolved Time COVID - 19 06/25/2024 06/25/2024 06/25/2024 6:36 PM CDT Assessment Noted Time PHQ-9 Depression Total Score: 18 024 10:00 AM COMB WINDER documented as of this encounter Care Teams Plywood Scarfer Tender Relationship Specialty Start Date End Date Marco Woods MD #2 [facility] [address] [place] [address] PCP - General Family Medicine 11/22/17 Kirsten Niño MD #2 [facility] [address] [place] [address] Consulting Physician Endocrinology 07/17/22 Chin Burrows MD #[address] [phone] Consulting Physician General Surgery 11/22/22 Michelle Mendes APRN, BISCUITWARE BRUSHER #2 [facility] [address] [place] [address] Nurse Practitioner Advanced Practice Nurse 08/14/22 Chantelle Nix APRN, BISCUITWARE BRUSHER #2 [place] [address] Nurse Practitioner Advanced Practice Nurse 02/19/24 Analia Meza MD #[address] [address] Consulting Physician Otolaryngology 05/11/25 documented as of this encounter
--- OUTSIDE RECORDS SUMMARY | 2025-05-28 08:50 | XMS_ITS | Encounter Summary ---
Author Organization [facility] Address [address] [place] [address] Phone Care Team Providers Care Credit Collection Associate Name Role Phone Marco Woods MD Primary Care Provider Kirsten Niño MD Unavailable Chin Burrows MD Unavailable [phone] Kelsea Root RN Unavailable Unavailable Michelle Mendes APRN, TRACK OILER Unavailable Chantelle Nix PARAPROFESSIONAL AIDE TEACHER, TRACK OILER Unavailable Analia Meza MD Unavailable [phone] Encounter Details Date Type Department Care Team (Late st Contact Info) Description 01/03/2021 [facility]cribe [facility] [address] [place] [address] Denise Arenas, PARAPROFESSIONAL AIDE TEACHER, TRACK OILER [address] [facility] [address] [place] [address] intermediate card tender use of drug (Primary Dx); Moderate depressed [...] Sex Assigned at Female 11/22/2023 11:58 AM LEAD FRONT DESK AGENT Legal Sex Female 11:34 PM CDT Gender Identity Female 11/22/2023 11:58 AM LEAD FRONT DESK AGENT Sexual Orientation Not on file Occupation Industry [...] Visit [facility] #2 [facility] [place] [address] Marco Woods MD #[address] [address] 07/01/2025 11:00 AM CDT Office Visit [facility] - [facility]at [facility] #2 [place] [address] Analia Meza MD #[address] [address] 07/03/2025 5:30 PM CDT [facility] [address] [place] [address] Analia Meza MD #[address] [address] Discharge Disposition: Discharged to home or Selfcare 07/17/2025 10:30 AM CDT [facility] - [place] #2 [place] [address] Michelle Mendes APRN, DREW #2 [facility] [address] [place] [address] 08/11/2025 9:45 AM CDT Office [facility] - Endocrinology - [place] #2 [place] [address] Kirsten Niño MD #2 [facility] [address] [place] [address] documented as of this encounter Results * LITHIUM (01/05/2021 6:36 AM CDT) Pathologist [facility] LITHIUM 0.7 0.6 - 1.2 mmol/L 01/05/2021 10:29 AM CDT [facility] Comment:Resulted from [facility]. Blood Venipuncture / Unknown 01/05/2021 6:36 AM CDT 01/05/2021 7:09 AM CDT Denise Arenas APRN, DREW CHEMISTRY ORDERABLES Final Result [facility] #1 [place] [address] * (ABNORMAL) FOLIC ACID (FOLATE) (01/05/2021 6:36 AM CDT) FOLATE 19.6(H) 3.1 - 17.5 ng/mL 01/05/2021 8:08 AM CDT [facility] IS THE PATIENT REQUIRED TO BE FASTING? No 01/05/2021 8:08 AM CDT [facility] Blood Venipuncture / Unknown 01/05/2021 6:36 AM CDT 01/05/2021 7:09 AM CDT Denise Arenas APRN, TRACK OILER CHEMISTRY ORDERABLES Final Result Performing Organization Address City/[facility]/ZIP Co de Phone Number [facility] #1 [place] [address] * THYROXINE (T4) FREE (01/05/2021 6:36 AM CDT) T4 FREE 1.0 0.9 - 1.7 ng/dL 01/05/2021 7:56 AM CDT [facility] Blood Venipuncture / Unknown 01/05/2021 6:36 AM CDT 01/05/2021 7:09 AM CDT Denise Arenas APRN, TRACK OILER CHEMISTRY ORDERABLES Final Result Performing Organization Address City/[facility]/ZIP Co de Phone Number [facility] #1 [place] [address] * (ABNORMAL) LIPID PANEL (01/05/2021 6:36 AM CDT) CHOLESTEROL 214(H) <=200 mg/dL 01/05/2021 7:56 AM CDT [facility] TRIGLYCERIDES 144 <150 mg/dL 01/05/2021 7:56 AM CDT [facility] HDL CHOLESTEROL 73.5 >40 mg/dL 7:56 AM CDT [facility] LDL 112 5 - 130 mg/dL 01/05/2021 7:56 AM CDT [facility] VLDL 29 5 - 55 mg/dL 01/05/2021 7:56 AM CDT [facility] CHOL/HDL RATIO 2.9 0.0 - 4.4 01/05/2021 7:56 AM CDT [facility] NON-HDL CHOLESTEROL 140.5(H) <130 mg/dL 01/05/2021 7:56 AM CDT [facility] IS THE PATIENT REQUIRED TO BE FASTING? No 01/05/2021 7:56 AM CDT [facility] Blood Venipuncture / Unknown 01/05/2021 6:36 AM CDT 01/05/2021 7:09 AM CDT Denise Subramaniany PARAPROFESSIONAL AIDE TEACHER, TRACK OILER CHEMISTRY ORDERABLES Final Result [facility] #1 [place] [address] * HEMOGLOBIN A1C W/ ESTIMATED GLUCOSE (01/05/2021 6:36 AM CDT) HGB-A1C 5.1 4.0 - 6.0 % 01/05/2021 7:24 AM CDT [facility] Est Average Glucose 99.7 mg/dL 01/05/2021 7:24 AM CDT [facility] Blood Venipuncture / Unknown 01/05/2021 6:36 AM CDT 01/05/2021 7:09 AM CDT Narrative [facility] - 01/05/2021 7:24 AM CDT HEMOGLOBIN A1C: DIABETIC PATIENTS: WELL-CONTROLLED: 6.2 - 7.0 INTERMEDIATE WELL-CONTROLLED: 7.0 - 9.0 POORLY-CONTROLLED: >9.0 us Denise Jameson Thery PARAPROFESSIONAL AIDE TEACHER, TRACK OILER CHEMISTRY ORDERABLES Final Result [facility] #1 [place] [address] documented in this encounter Visit Diagnoses Diagnosis prison use of drug- Primary Encounter for long-term [...] - 19 11/20/2022 11/20/2022 11/24/2022 8:51 AM LEAD FRONT DESK AGENT COVID - 19 12/31/2022 12/31/2022 01/10/2023 12:1 8 AM CDT COVID - 19 Confirmed 12/31/2022 12/31/2022 023 12:17 AM CDT COVID - 19 06/01/2023 06/01/2023 06/01/2023 8:16 AM CDT COVID - 19 11/01/2023 11/01/2023 11/11/2023 12:1 6 AM LEAD FRONT DESK AGENT COVID - 19 06/25/2024 06/25/2024 06/25/2024 6:36 PM CDT Assessment Noted Time PHQ-9 Depression Total Score: 0 11/22/19 10:00 AM LEAD FRONT DESK AGENT documented as of this encounter Care Teams Credit Collection Associate Relationship Specialty Start Date End Date Marco Woods MD #[address] [address] PCP - General Family Medicine 11/22/17 Kirsten Niño MD #[address] [address] Consulting Physician Endocrinology 07/17/22 Chin Burrows MD #[address] [address] Consulting Physician General Surgery 11/22/22 Kelsea Root RN [place] Vehicle Body Builder 06/15/23 08/26/23 Michelle Mendes APRN, TRACK OILER #[address] [address] Nurse Practitioner Advanced Practice Nurse 08/14/22 Chantelle Nix APRN, TRACK OILER #2 [facility] [address] Nurse Practitioner Advanced Practice Nurse 02/19/24 Analia Meza MD #[address] [address] Consulting Physician Otolaryngology 05/11/25 documented as of this encounter
--- OUTSIDE RECORDS SUMMARY | 2025-05-28 08:50 | XMS_ITS | Encounter Summary ---
Author Organization [facility] Address [address] [place] [address] Phone Care Team Providers Care Mainspring Former Arbor End Name Role Phone Marco Woods MD Primary Care Provider Kirsten iNño MD Unavailable Chin Burrows MD Unavailable [phone] Michelle Mendes APRN, REVERSING MILL ROLLER Unavailable Chantelle Nix APRN, REVERSING MILL ROLLER Unavailable Analia Meza MD Unavailable [phone] Reason for Visit * Reason Comments Medication Refill Encounter Details Date Type Department Care Team (Late st Contact Info) Description 04/04/2024 Refill [facility] - Family Medicine - [place] [address] [place] [address] Marco Woods MD [address] [address] Medication Refill Social History Tobacco Use Types Packs/Day Years Used Date Smoking Tobacco: Never Smokeless Tobacco: Never Alcohol Use Standard Drinks/Week Comments Not Currently 0 (1 standard drink = 0.6 oz pur e alcohol) [facility] Utilities Answer Date Recorded In the past 12 months has [employer] electric, gas, oil, or water company threatened [...] declined 11/28/2023 How often do you attend advent or hoahaoism serv ices? Patient declined 11/28/2023 [...] Total Score - Questions 1-9 18 10/24 [facility] - Occupational Stress Questionnaire Answer Date Recorded [...] Sex Assigned at Female 11/22/2023 11:58 AM ANIMAL GENETICIST Legal Sex Female 11:34 PM CDT Gender Identity Female 11/22/2023 11:58 AM ANIMAL GENETICIST Sexual Orientation Not on file Occupation Industry [...] Dept 03/27/24 Office Visit Mirtha Steiner APRN, REVERSING MILL ROLLER [facility] [place] 03/12/24 Office Visit [facility] 02/21/24 Office Visit Amor Pitt MD [facility] [place] 02/12/24 Office Visit Rebecca Liu, EELER, REVERSING MILL ROLLER [facility] [place] 12/05/23 Office Visit [facility] MD [facility] [place] 11/20/23 Office Visit Ronald Shaffer EELER, REVERSING MILL ROLLER [facility] [place] 10/10/23 Office Visit Rebecca Liu EELER, REVERSING MILL ROLLER [facility] [place] 08/24/23 Office Visit [facility] 08/02/23 Office Visit Marco Woods MD [facility] [place] 05/01/23 Office Visit Marco [facility] MD [facility] Showing recent visits within past 365 days and meeting all other requirements Future Appointments Date Type Provider Dept 04/09/24 Appointment Marco Woods MD [facility] Showing future appointments within next 90 days and meeting all other requirements documented in this encounter Plan of Treatment Upcoming Encounters Date Type Department Care Team (Late st Contact Info) Description 06/12/2025 11:00 AM CDT Office Visit [facility] Medical [facility] - Family Medicine - [place] #2 [place] [address] Marco Woods MD #[address] [address] 07/01/2025 11:00 AM CDT Office Visit [facility] Medical [facility] - Ear, Nose & Throat - [place] #2 [place] [address] Analia Meza MD #[address] [address] 07/03/2025 5:30 PM CD[facility] [address] [place] [address] Analia Meza MD #[address] [place] [address] Discharge Disposition: Discharged to home or Selfcare 07/17/2025 10:30 AM CDT [facility] #2 [place] [address] Michelle Mendes, EELER, REVERSING MILL ROLLER #2 [facility] [address] [place] [address] 08/11/2025 9:45 AM CDT [facility] Endocrinology - [place] #2 [place] [address] Kirsten Niño MD #[address] [address] documented as of this encounter Visit Diagnoses Not on filedocumented in this encounter Additional Health Concerns Infection Onset Date Last Indicated Resolved Time COVID - 19 06/25/2024 06/25/2024 06/25/2024 6:36 PM CDT Assessment Noted Time PHQ-9 Depression Total Score: 18 024 10:00 AM ANIMAL GENETICIST documented as of this encounter Care Teams Mainspring Former Arbor End Relationship Specialty Start Date End Date Marco Woods MD #[address] [address] PCP - General Family Medicine 11/22/17 Kirsten Niño MD #[address] [address] Consulting Physician Endocrinology 07/17/22 Chin Burrows MD #2 [facility] [address] [place] [address] Consulting Physician General Surgery 11/22/22 Michelle Mendes APRN, REVERSING MILL ROLLER #2 [facility] [address] [place] [address] Nurse Practitioner Advanced Practice Nurse 08/14/22 Chantelle Nix APRN, REVERSING MILL ROLLER #2 [place] [address] Nurse Practitioner Advanced Practice Nurse 02/19/24 Analia Meza MD #2 [facility] [address] [address] Consulting Physician Otolaryngology 05/11/25 documented as of this encounter
--- OUTSIDE RECORDS SUMMARY | 2025-05-28 08:50 | XMS_ITS | Encounter Summary ---
Author Organization [facility] Address [address] [place] [address] Phone Care Team Providers Care Livestock Yard Attendant Name Role Phone Marco Woods MD Primary Care Provider [phone] Kirsten Niño MD Unavailable Chin Burrows MD Unavailable [phone] Kelsea Root RN Unavailable Unavailable Michelle Mendes APRN, INCIDENT MANAGER Unavailable Chantelle Nix APRN, INCIDENT MANAGER Unavailable Analia Meza MD Unavailable [phone] Reason for Visit * Reason Comments Medication Refill Encounter Details Date Type Department Care Team (Late st Contact Info) Description 04/23/2021 Refill [facility]ology - [place] [address] [place] [phone] Dani Garrett, DO 4 [facility] [place] [address] Medication Refill Social History Tobacco Use Types Packs/Day Years Used Date Smoking Tobacco: Never Smokeless Tobacco: Former Alcohol Use Standard Drinks/Week Comments Not Currently 0 (1 standard drink = 0.6 oz pur e alcohol) Sexually Active Control Partners Comments Not Currently Comments No Sex and Gender Information Value Date Recorded Sex Assigned at Female 11/22/2023 11:58 AM SQUAD SERGEANT Legal Sex Female 11:34 PM CDT Gender Identity Female 11/22/2023 11:58 AM SQUAD SERGEANT Sexual Orientation Not on file Occupation Industry [...] [facility] - [place] #2 [place] [address] Marco Woods MD #[address] [address] 07/01/2025 11:00 AM CDT Office Visit [facility] - [facility], Nose & Throat - [place] #2 [place] [address] Analia Meza MD #[address] [address] 07/03/2025 5:30 PM CD[facility] [address] [place] [address] Analia Meza MD #[address] [address] Discharge Disposition: Discharged to home or Selfcare 07/17/2025 10:30 AM CDT [facility] - Pulmonology & Sleep Medicine - [place] #2 [place] [address] Michelle Mendes APRN, DREW #2 [facility] [address] [place] [address] 08/11/2025 9:45 AM CDT Office Visit [facility] - Endocrinology - [place] #2 [place] [address] Kirsten Niño MD #2 [facility] [address] [place] [address] documented as of this encounter Visit Diagnoses Not on filedocumented in this encounter Additional Health Concerns Infection Onset Date Last Indicated Resolved Time COVID - 19 06/29/2022 06/29/2022 07/09/2022 12:1 6 AM CDT COVID - 19 11/20/2022 11/20/2022 11/24/2022 8:51 AM SQUAD SERGEANT COVID - 19 12/31/2022 12/31/2022 01/10/2023 12:1 8 AM CDT COVID - 19 Confirmed 12/31/2022 12/31/2022 023 12:17 AM CDT COVID - 19 06/01/2023 06/01/2023 06/01/2023 8:16 AM CDT COVID - 19 11/01/2023 11/01/2023 11/11/2023 12:1 6 AM SQUAD SERGEANT COVID - 19 06/25/2024 06/25/2024 06/25/2024 6:36 PM CDT Assessment Noted Time PHQ-9 Depression Total Score: 0 11/22/19 18 10:00 AM SQUAD SERGEANT documented as of this encounter Care Teams Livestock Yard Attendant Relationship Specialty Start Date End Date Marco Woods MD #2 [facility] [address] [place] [address] PCP - General Family Medicine 11/22/17 Kirsten Niño MD #2 [facility] [address] [place] [address] Consulting Physician Endocrinology 07/17/22 Chin Burrows MD #2 [facility] [address] [phone] Consulting Physician General Surgery 11/22/22 Kelsea Root RN [place] Hard Candy Batch Mixer 06/15/23 08/26/23 Michelle Mendes APRN, INCIDENT MANAGER #2 [facility] [facility] [address] [place] [address] Nurse Practitioner Advanced Practice Nurse 08/14/22 Chantelle Nix APRN, INCIDENT MANAGER #2 [place] [address] Nurse Practitioner Advanced Practice Nurse 02/19/24 Analia Meza MD #2 [facility] [address] [address] Consulting Physician Otolaryngology 05/11/25 documented as of this encounter
--- OUTSIDE RECORDS SUMMARY | 2025-05-28 08:50 | XMS_ITS | Encounter Summary ---
Author Organization [facility] Address [address] [place] [address] Phone Care Team Providers Care Shroudman Name Role Phone Marco Woods MD Primary Care Provider [phone] Kirsten Niño MD Unavailable Chin Burrows MD Unavailable Kelsea Root RN Unavailable Unavailable Michelle Mendes APRN, FIELD MARKETING SPECIALIST Unavailable Chantelle Nix APRN, FIELD MARKETING SPECIALIST Unavailable Analia Meza MD Unavailable [phone] Reason for Visit * Reason Comments Medication Refill Encounter Details Date Type Department Care Team (Late st Contact Info) Description 05/09/2023 Refill [facility] #[address] [place] [address] Marco Woods MD #[address] [address] Medication Refill Social History Tobacco Use Types [...] Sex Assigned at Female 11/22/2023 11:58 AM ELECTROMECHANICAL TECHNICIAN Legal Sex Female 11:34 PM CDT Gender Identity Female 11/22/2023 11:58 AM ELECTROMECHANICAL TECHNICIAN Sexual Orientation Not on file Occupation [...] reordered on 05/10/2023 by Mirtha Steiner APRN, FIELD MARKETING SPECIALIST. * Telephone Encounter - Amada Orozco RN - 05/10/2023 1:50 PM CDT duplicate * Telephone Encounter - Lesly Danielle RN - 05/09/2023 3:08 PM CDT Duplicate request documented in this encounter Plan of Treatment Upcoming Encounters Date Type Department Care Team (Late st Contact Info) Description 06/12/2025 11:00 AM CDT [facility] Medicine [facility] #2 [place] [address] Marco Woods MD #[address] [address] 07/01/2025 11:00 AM CDT [facility] - [facility], Nose & Throat - [place] #2 [place] [address] Analia Meza MD #[address] [address] 07/03/2025 5:30 PM CD[facility] [address] [place] [address] Analia Meza MD #[address] [address] Discharge Disposition: Discharged to home or Selfcare 07/17/2025 10:30 AM CDT [facility] - [place] #2 [place] [address] Michelle Mendes APRN, FIELD MARKETING SPECIALIST #[address] [address] 08/11/2025 9:45 AM CDT [facility] Visit [facility] - Endocrinology - [place] #2 [place] [address] Kirsten Niño MD #[address] [address] documented as of this encounter Visit Diagnoses Diagnosis Anxiety Anxiety state, unspecified documented in this encounter Additional Health Concerns Infection Onset Date Last Indicated Resolved Time COVID - 19 06/01/2023 06/01/2023 06/01/2023 8:16 AM CDT COVID - 19 11/01/2023 11/01/2023 11/11/2023 12:1 6 AM ELECTROMECHANICAL TECHNICIAN COVID - 06/25/2024 06/25/2024 06/25/2024 6:36 PM CDT Assessment Noted Time PHQ-9 Depression Total Score: 0 11/22/19 10:00 AM ELECTROMECHANICAL TECHNICIAN documented as of this encounter Care Teams Shroudman Relationship Specialty Start Date End Date Marco Woods MD [facility]2 [facility] [address] [place] [address] PCP - General Family Medicine 11/22/17 Kirsten Niño MD #2 [facility] [address] [place] [address] Consulting Physician Endocrinology 07/17/22 Chin Burrows MD #2 [facility] [address] [place] [address] Consulting Physician General Surgery 11/22/22 Kelsea Root RN [place] Dyehouse Worker 06/15/23 08/26/23 Michelle Mendes APRN, FIELD MARKETING SPECIALIST #2 [facility] [address] [place] [address] Nurse Practitioner Advanced Practice Nurse 08/14/22 Chantelle Nix APRN, FIELD MARKETING SPECIALIST #2 [place] [address] Nurse Practitioner Advanced Practice Nurse 02/19/24 Analia Meza MD #2 [facility] [address] [place] [address] Consulting Physician Otolaryngology 05/11/25 documented as of this encounter
--- OUTSIDE RECORDS SUMMARY | 2025-05-28 08:50 | XMS_ITS | Encounter Summary ---
Author Organization [facility] Address [address] [place] [address] Phone Care Team Providers Care Linux Solaris Administrator Name Role Phone Marco Woods MD Primary Care Provider Kirsten Niño MD Unavailable Chin Burrows MD Unavailable [phone] Kelsea Root RN Unavailable Unavailable Michelle Mendes APRN, CAMPGROUND HAND Unavailable [phone] Chantelle Nix APRN, CAMPGROUND HAND Unavailable Analia Meza MD Unavailable [phone] Reason for Visit * Reason Comments Medication Refill Encounter Details Date Type Department Care Team (Late st Contact Info) Description 02/11/2022 Refill [facility] - Pulmonology & Sleep Medicine [facility] #2 [place] [address] Michelle Mendes APRN, CAMPGROUND HAND #[address] [address] Medication Refill Social History Tobacco Use Types Packs/Day Years Used Date Smoking Tobacco: Never Smokeless Tobacco: Former Alcohol Use Standard Drinks/Week Comments Not Currently 0 (1 standard drink = 0.6 oz pur e alcohol) Sexually Active Control Partners Comments Not Currently Comments No Sex and Gender Information Value Date Recorded Sex Assigned at Female 11/22/2023 11:58 AM CAMERA STORAGE CLERK Legal Sex Female 11:34 PM CDT Gender Identity Female 11/22/2023 11:58 AM CAMERA STORAGE CLERK Sexual Orientation Not on file Occupation [...] Mendes APRN, DREW [facility] [place] [address] 01/10/22 Office Visit Marco Woods MD [facility] 11/11/21 Office Visit Michelle Mendes APRN, DREW [facility] [place] [address] 10/04/21 Office Visit Marco Woods MD [facility] 08/08/21 Office Visit Michelle Mendes APRN, DREW [facility] [place] [address] 06/29/21 Office Visit Marco Woods MD [facility] 04/04/21 Office Visit Michelle Mendes APRN, DREW [facility] [place] [address] 03/25/21 Office Visit Marco Woods MD [facility] 02/22/21 Office Visit Marco Woods MD [facility] [place] Showing recent visits within past 365 days and meeting all other requirements Future Appointments Date Type Provider Dept 04/19/22 Appointment Marco Woods MD [facility] [place] Showing future appointments within next 90 days and meeting all other requirements documented in this encounter Plan of Treatment Upcoming Encounters Date Type Department Care Team (Late st Contact Info) Description 06/12/2025 11:00 AM CDT Office Visit [facility] Medical [facility] - Family Medicine - [place] #2 [place] [address] Marco Woods MD #2 [facility] [address] [place] [address] 07/01/2025 11:00 AM CDT Office Visit [facility] - Ear, Nose & Throat - [place] #2 [place] [address] Analia Meza MD #2 [facility] [address] [place] [address] 07/03/2025 5:30 PM CDT [facility] [address] [place] [address] Analia Meza MD #2 [facility] [address] [place] [address] Discharge Disposition: Discharged to home or Selfcare 07/17/2025 10:30 AM CDT Office Visit [facility] - Pulmonology & Sleep Medicine - [place] #2 [place] [address] Michelle Mendes APRN, CAMPGROUND HAND #2 [facility] [address] [place] [address] 08/11/2025 9:45 AM CDT Office Visit [facility] - Endocrinology [facility] #2 [place] [address] Kirsten Niño MD #2 [facility] [address] [place] [address] documented as of this encounter Visit Diagnoses Diagnosis PNAR (perennial non-allergic rhinitis) Chronic rhinitis documented in this encounter Additional Health Concerns Infection Onset Date Last Indicated Resolved Time COVID - 19 06/29/2022 06/29/2022 07/09/2022 12:1 6 AM CDT COVID - 19 11/20/2022 11/20/2022 11/24/2022 8:51 AM CAMERA STORAGE CLERK COVID - 19 12/31/2022 12/31/2022 01/10/2023 12:1 8 AM CDT COVID - 19 Confirmed 12/31/2022 12/31/2022 023 12:17 AM CDT COVID - 19 06/01/2023 06/01/2023 06/01/2023 8:16 AM CDT COVID - 19 11/01/2023 11/01/2023 11/11/2023 12:1 6 AM CAMERA STORAGE CLERK COVID - 19 06/25/2024 06/25/2024 06/25/2024 6:36 PM CDT Assessment Noted Time PHQ-9 Depression Total Score: 0 11/22/19 18 10:00 AM CAMERA STORAGE CLERK documented as of this encounter Care Teams Linux Solaris Administrator Relationship Specialty Start Date End Date Marco Woods MD #2 [facility] [address] [place] [address] PCP - General Family Medicine 11/22/17 Kirsten Niño MD #[address] [address] Consulting Physician Endocrinology 07/17/22 Chin Burrows MD #2 [facility] [address] [place] [address] Consulting Physician General Surgery 11/22/22 Kelsea Root, JUWAN [place] Cabinet Professional 06/15/23 08/26/23 Michelle Mendes APRN, CAMPGROUND HAND #2 [facility] [address] [place] [address] Nurse Practitioner Advanced Practice Nurse 08/14/22 Chantelle Nix APRN, CAMPGROUND HAND #2 [place] [address] Nurse Practitioner Advanced Practice Nurse 02/19/24 Analia Meza MD #2 [facility] [address] [address] Consulting Physician Otolaryngology 05/11/25 documented as of this encounter
--- OUTSIDE RECORDS SUMMARY | 2025-05-28 08:50 | XMS_ITS | Encounter Summary ---
Author Organization [facility] Address [address] [place] [address] Phone Care Team Providers Care Navy Material Inspector Name Role Phone Marco Woosd MD Primary Care Provider Kirsten Niño MD Unavailable Chin Burrows MD Unavailable Kelsea Root RN Unavailable Unavailable Michelle Mendes APRN, PSYCHOLOGICAL TESTS SALES AGENT Unavailable Chantelle Nix APRN, PSYCHOLOGICAL TESTS SALES AGENT Unavailable Analia Meza MD Unavailable [phone] Reason for Visit * Reason Comments Medication Refill Encounter Details Date Type Department Care Team (Late st Contact Info) Description 06/15/2021 Refill [facility] [address] [place] [address] Marco Woods MD #2 [facility] [place], [place] [phone] Medication Refill Social History Tobacco Use Types Packs/Day Years Used Date Smoking Tobacco: Never Smokeless Tobacco: Former Alcohol Use Standard Drinks/Week Comments Not Currently 0 (1 standard drink = 0.6 oz pur e alcohol) Sexually Active Control Partners Comments Not Currently Comments No Sex and Gender Information Value Date Recorded Sex Assigned at Female 11/22/2023 11:58 AM STEEL BURNER Legal Sex Female 11:34 PM CDT Gender Identity Female 11/22/2023 11:58 AM STEEL BURNER Sexual Orientation Not on file Occupation [...] [facility] 12/21/20 Telemedicine Mirtha Steiner APN, PSYCHOLOGICAL TESTS SALES AGENT [facility] [place] 11/09/20 Office Visit Marco [...] [facility] - [place] #2 [place] [address] Marco Woods MD #2 [facility] [address] [place] [address] 07/01/2025 11:00 AM CDT Office Visit [facility] - [facility], Nose & Throat - [place] #2 [place] [address] Analia Meza MD #[address] [address] 07/03/2025 5:30 PM CDT [facility]ment [facility] [address] [place] [address] Analia Meza MD #[address] [address] Discharge Disposition: Discharged to home or Selfcare 07/17/2025 10:30 AM CDT [facility] Medicine - [place] #2 [place] [address] Michelle Mendes APRN, PSYCHOLOGICAL TESTS SALES AGENT #2 [facility] [address] [place] [address] 08/11/2025 9:45 AM CDT Office Visit [facility] Endocrinology - [place] #2 [place] [address] Kirsten Niño MD #[address] [address] documented as of this encounter Visit Diagnoses Not on filedocumented in this encounter Additional Health Concerns Infection Onset Date Last Indicated Resolved Time COVID - 19 06/29/2022 06/29/2022 07/09/2022 12:1 6 AM CDT COVID - 19 11/20/2022 11/20/2022 11/24/2022 8:51 AM STEEL BURNER COVID - 19 12/31/2022 12/31/2022 01/10/2023 12:1 8 AM CDT COVID - 19 Confirmed 12/31/2022 12/31/2022 023 12:17 AM CDT COVID - 19 06/01/2023 06/01/2023 06/01/2023 8:16 AM CDT COVID - 19 11/01/2023 11/01/2023 11/11/2023 12:1 6 AM STEEL BURNER COVID - 19 06/25/2024 06/25/2024 06/25/2024 6:36 PM CDT Assessment Noted Time PHQ-9 Depression Total Score: 0 11/22/19 10:00 AM STEEL BURNER documented as of this encounter Care Teams Navy Material Inspector Relationship Specialty Start Date End Date Marco Woods MD #2 [facility] [address] [place] [address] PCP - General Family Medicine 11/22/17 Kirsten Niño MD #2 [facility] [address] [place] [address] Consulting Physician Endocrinology 07/17/22 Chin Burrows MD #2 [facility] [address] [place] [address] Consulting Physician General Surgery 11/22/22 Kelsea Root, RN [place] Job Site Supervisor 06/15/23 08/26/23 Michelle Mendes APRN, PSYCHOLOGICAL TESTS SALES AGENT #2 [facility] [address] [place] [address] Nurse Practitioner Advanced Practice Nurse 08/14/22 Chantelle Nix APRN, PSYCHOLOGICAL TESTS SALES AGENT #2 [place] [address] Nurse Practitioner Advanced Practice Nurse 02/19/24 Analia Meza MD #2 [facility] [address] [address] Consulting Physician Otolaryngology 05/11/25 documented as of this encounter
--- OUTSIDE RECORDS SUMMARY | 2025-05-28 08:50 | XMS_ITS | Encounter Summary ---
Author Organization [facility] Address [address] [place] [address] Phone Care Team Providers Care Clipper Counters Name Role Phone Marco Woods MD Primary Care Provider [phone] Kirsten Niño MD Unavailable Chin Burrows MD Unavailable [phone] Kelsea Root RN Unavailable Unavailable Michelle Mendes APRN, BEARINGIZER Unavailable Chantelle Nix APRN, BEARINGIZER Unavailable Analia Meza MD Unavailable [phone] Reason for Visit * Reason Comments Medication Refill Encounter Details Date Type Department Care Team (Late st Contact Info) Description 09/03/2022 Refill [facility] Oncology Services [address] [place] [address] Kirsten Niño MD #[address] [address] Medication Refill Social History Tobacco Use Types Packs/Day Years Used Date Smoking Tobacco: Never Smokeless Tobacco: Former Alcohol Use Standard Drinks/Week Comments Not Currently 0 (1 standard drink = 0.6 oz pur e alcohol) Sexually Active Control Partners Comments Not Currently Comments No Sex and Gender Information Value Date Recorded Sex Assigned at Female 11/22/2023 11:58 AM ACTION INSTALLER Legal Sex Female 11:34 PM CDT Gender Identity Female 11/22/2023 11:58 AM ACTION INSTALLER Sexual Orientation Not on file Occupation Industry Job Start Date Job End Date disabled Not on file Not on file Not on file COVID-19 Exposure Response Date Recorded In the last 10 days, have yo u been in contact with someone who was confirmed or suspected to have Coronavirus/COVID-19? No / Unsure 08/31/2022 8:58 AM ACTION INSTALLER documented as of this encounter Plan of Treatment Upcoming Encounters Date Type Department Care Team (Late st Contact Info) Description 06/12/2025 11:00 AM CDT Office Visit [facility] Medical Group - Family Medicine - [place] #[address] [place] [address] Marco Woods MD #2 [facility] [address] [place] [address] 07/01/2025 11:00 AM CDT Office Visit [facility] Medical [facility] - Ear, Nose & Throat - [place] #[address] [place] [address] Analia Meza MD #2 [facility] [address] [place] [address] 07/03/2025 5:30 PM CDT [facility]ment [facility] [address] [place] [address] Analia Meza MD #[address] [phone] Discharge Disposition: Discharged to home or Selfcare 07/17/2025 10:30 AM CDT [facility] - Pulmonology & Sleep Medicine - [place] #2 [place] [address] Michelle Mendes APRN, BEARINGIZER #2 [facility] [address] [place] [address] 08/11/2025 9:45 AM CDT [facility] - Endocrinology - [place] #2 [place] [address] Kirsten Niño MD #[address] [address] documented as of this encounter Visit Diagnoses Not on filedocumented in this encounter Additional Health Concerns Infection Onset Date Last Indicated Resolved Time COVID - 19 11/20/2022 11/20/2022 11/24/2022 8:51 AM ACTION INSTALLER COVID - 19 12/31/2022 12/31/2022 01/10/2023 12:1 8 AM CDT COVID - 19 Confirmed 12/31/2022 12/31/2022 023 12:17 AM CDT COVID - 19 06/01/2023 06/01/2023 06/01/2023 8:16 AM CDT COVID - 19 11/01/2023 11/01/2023 11/11/2023 12:1 6 AM ACTION INSTALLER COVID - 19 06/25/2024 06/25/2024 06/25/2024 6:36 PM CDT Assessment Noted Time PHQ-9 Depression Total Score: 0 11/22/19 18 10:00 AM ACTION INSTALLER documented as of this encounter Care Teams Clipper Counters Relationship Specialty Start Date End Date Marco Woods MD #2 [facility] [address] [place] [address] PCP - General Family Medicine 11/22/17 Kirsten Niño MD #2 [facility] [address] [place] [address] Consulting Physician Endocrinology 07/17/22 Chin Burrows MD #2 [facility] [address] [place] [address] Consulting Physician General Surgery 11/22/22 Kelsea Root, RN [place] Fire Loss Prevention Engineer 06/15/23 08/26/23 Michelle Mendes APRN, BEARINGIZER #2 [facility] [address] [place] [address] Nurse Practitioner Advanced Practice Nurse 08/14/22 Chantelle Nix APRN, BEARINGIZER #2 [place] [address] Nurse Practitioner Advanced Practice Nurse 02/19/24 Analia Meza MD #[address] [address] Consulting Physician Otolaryngology 05/11/25 documented as of this encounter
--- OUTSIDE RECORDS SUMMARY | 2025-05-28 08:50 | XMS_ITS | Encounter Summary ---
Author Organization [facility] Address [address] [place] [address] Phone Care Team Providers Care Arts Administrator Name Role Phone Marco Woods MD Primary Care Provider [phone] Kirsten Niño MD Unavailable Chin Burrows MD Unavailable Michelle Mendes MANGLE TENDER, EMBEDDED SOFTWARE DESIGN ENGINEER Unavailable Chantelle Nix MANGLE TENDER, EMBEDDED SOFTWARE DESIGN ENGINEER Unavailable Analia Meza MD Unavailable [phone] Encounter Details Date Type Department Care Team (Late st Contact Info) Description 04/12/2025 Results Follow-Up [facility] HealthCare Medial Group - [facility] - [place] [place] [address] Jeniffer Devries APRN, EMBEDDED SOFTWARE DESIGN ENGINEER [address] [place] [address] POC GROUP A STREP BY [...] th e electric, gas, oil, or water [employer] threatened to shut off services in your home? Patient unable to answer 06/25/2024 Social Connection and Isolation Panel Answer Date Recorded In a typical week, how many times do you talk on the phone with family, friends, or neighbors? Patient declined 06/25/2024 How often do you get togethe r with friends or relatives? Patient declined 06/25/2024 How often do you attend bahai or mandaen serv ices? Patient declined 06/25/2024 Do you [...] Total Score - Questions 1-9 18 10/24 [facility] - Occupational Stress Questionnaire [...] time in the past [address] [facility], were you homeless or living [...] Sex Assigned at Female 11/22/2023 11:58 AM PUBLIC HEALTH TECHNICIAN Legal Sex Female 11:34 PM CDT Gender Identity Female 11/22/2023 11:58 AM PUBLIC HEALTH TECHNICIAN Sexual Orientation Not on file Occupation Industry Job Start Date Job End Date disabled Not on file Not on file Not on file documented as of this encounter Plan of Treatment Upcoming Encounters Date Type Department Care Team (Late st Contact Info) Description 06/12/2025 11:00 AM CDT [facility] Visit [facility] #2 [facility] [place] [place] [address] Marco Woods MD #[address] [facility] [address] [place] [address] 07/01/2025 11:00 AM CDT [facility] Visit [facility] - [facility] Throat - [place] #2 [place] [address] Analia Meza MD #[address] [address] 07/03/2025 5:30 PM CDT [facility] [address] [place] [address] Analia Meza MD #[address] [phone] Discharge Disposition: Discharged to home or Selfcare 07/17/2025 10:30 AM CDT [facility] - [place] #[address] [place] [address] Michelle Mendes APRN, EMBEDDED SOFTWARE DESIGN ENGINEER #[address] [facility] [address] [place] [address] 08/11/2025 9:45 AM CDT Office Visit [facility] - Endocrinology - [place] #[address] [place] [address] Kirsten Niño MD #[address] [place] [address] documented as of this encounter Visit Diagnoses Not on filedocumented in this encounter Additional Health Concerns Assessment Noted Time PHQ-9 Depression Total Score: 18 024 10:00 AM PUBLIC HEALTH TECHNICIAN documented as of this encounter Care Teams Arts Administrator Relationship Specialty Start Date End Date Marco Woods MD #[address] [facility] [address] [place] [address] PCP - General Family Medicine 11/22/17 Kirsten Niño MD #[address] [address] Consulting Physician Endocrinology 07/17/22 Chin Burrows MD #[address] [phone] Consulting Physician General Surgery 11/22/22 Michelle Mendes APRN, EMBEDDED SOFTWARE DESIGN ENGINEER #[address] [facility] [address] [place] [address] Nurse Practitioner Advanced Practice Nurse 08/14/22 Chantelle Nix APRN, EMBEDDED SOFTWARE DESIGN ENGINEER #2 [place] [address] Nurse Practitioner Advanced Practice Nurse 02/19/24 Analia Meza MD #[address] [phone] Consulting Physician Otolaryngology 05/11/25 documented as of this encounter
--- OUTSIDE RECORDS SUMMARY | 2025-05-28 08:50 | XMS_ITS | Encounter Summary ---
Author Organization [facility] Address [address] [place] [address] Phone Care Team Providers Care Director Of Channel Marketing Name Role Phone Marco Woods MD Primary Care Provider [phone] Kirsten Niño MD Unavailable Chin Burrows MD Unavailable [phone] Kelsea Root RN Unavailable Unavailable Michelle Mendes APRN, SUPERVISOR DAIRY SANITATION Unavailable Chantelle Nix APRN, SUPERVISOR DAIRY SANITATION Unavailable Analia Meza MD Unavailable [phone] Reason for Visit * Reason Comments Medication Refill Encounter Details Date Type Department Care Team (Late st Contact Info) Description 11/27/2020 Refill [facility] [address] [place] [phone] Marco Woods MD [address] [place] [address] [address] Medication Refill Social History Tobacco Use Types Packs/Day Years Used Date Smoking Tobacco: Never Smokeless Tobacco: Former Alcohol Use Standard Drinks/Week Comments Not Currently 0 (1 standard drink = 0.6 oz pur e alcohol) Sexually Active Control Partners Comments Not Currently Comments No Sex and Gender Information Value Date Recorded Sex Assigned at Female 11/22/2023 11:58 AM STERILIZER OPERATOR Legal Sex Female 11:34 PM CDT Gender Identity Female 11/22/2023 11:58 AM STERILIZER OPERATOR Sexual Orientation Not on file Occupation Industry Job Start Date Job End Date disabled Not on file Not on file Not on file COVID-19 Exposure Response Date Recorded In the last month, have you been in contact with someone who was confirmed or suspected to have Coronavirus / COVID-19? No / Unsure 11/09/2020 1:41 PM STERILIZER OPERATOR documented as of this encounter Miscellaneous Notes * Telephone Encounter - Marco Woods MD - 11/29/2020 6:52 AM CST Prescription approved. Please call in ILIZER OPERATOR * Telephone Encounter - Reina Paulson RN [...] severity, unspecified whether complicated, unspecified whether persistent [facility] Medical Group - Family Medicine - Marco Menchaca MD 2 months ago Asthma, unspecified asthma severity, unspecified whether complicated, unspecified whether persistent [facility] Medical [facility] Family [facility] Marco Santacruz MD 5 months ago Preop examination [facility] - Family [facility] Marco Santacruz MD 7 months ago Essential hypertension [facility] Medical [facility] Family [facility] Marco Santacruz MD 11 months ago Essential hypertension [facility] Medical [facility] Family [facility] Marco Santacruz MD Upcoming Appointments Future Appointments In [address] Mammography, [facility] In 3 Kirsten Mcclure MD [facility] Medical Group - [facility]ocrinology - [facility] In 1 month Adrien Montoya MD [facility] In 2 months Marco Woods MD [facility] Family Medicine [facility] SCALER PACKER - Recent and Past Visits Recent Visits Date Type Provider Dept 11/09/20 Office Visit Marco Woods MD [facility] [place] 09/06/20 Office Visit [facility] [place] 06/09/20 Office Visit [facility] [place] 04/27/20 Office Visit [facility] MD [facility] [place] 12/24/19 Office Visit [facility] MD [facility] [place] 11/12/19 Office Visit Mirtha Steiner APN, SUPERVISOR DAIRY SANITATION [facility] 10/24/19 Office Visit Ronald Shaffer APN, SUPERVISOR DAIRY SANITATION [facility] Showing recent visits within past 460 days with a meds authorizing provider and meeting all other requirements Future Appointments Date Type Provider Dept 02/07/21 Appointment Marco Woods MD [facility] Showing future appointments within next 90 days with a meds authorizing provider and meeting all other requirements ILIZER OPERATOR documented in this encounter Plan of Treatment Upcoming Encounters Date Type Department Care Team (Late st Contact Info) Description 06/12/2025 11:00 AM CDT Office Visit [facility] Family [facility] - [place] [address] [place] [address] Marco Woods MD #2 [place] [facility] [address] [place] [address] 07/01/2025 11:00 AM CDT Office Visit [facility] - Ear, Nose & Throat - [place] #2 [facility] [place] [address] Analia Meza MD #2 [facility] [address] [place] [address] 07/03/2025 5:30 PM CD[facility] [address] [place] [address] Analia Meza MD #2 [facility] [address] [place] [address] Discharge Disposition: Discharged to home or Selfcare 07/17/2025 10:30 AM CDT Office Visit [facility] Medical [facility] - Pulmonology & Sleep Medicine - [place] #2 [place] [address] Michelle Mendes APRN, SUPERVISOR DAIRY SANITATION #2 [facility] [address] [place] [address] 08/11/2025 9:45 AM CDT Office Visit [facility] Medical Group - Endocrinology - [place] #2 [place] [address] Kirsten Niño MD #[address] [address] documented as of this encounter Visit Diagnoses Not on filedocumented in this encounter Additional Health Concerns Infection Onset Date Last Indicated Resolved Time COVID - 19 06/29/2022 06/29/2022 07/09/2022 12:1 6 AM CDT COVID - 19 11/20/2022 11/20/2022 11/24/2022 8:51 AM STERILIZER OPERATOR COVID - 19 12/31/2022 12/31/2022 01/10/2023 12:1 8 AM CDT COVID - 19 Confirmed 12/31/2022 12/31/2022 023 12:17 AM CDT COVID - 19 06/01/2023 06/01/2023 06/01/2023 8:16 AM CDT COVID - 19 11/01/2023 11/01/2023 11/11/2023 12:1 6 AM STERILIZER OPERATOR COVID - 19 06/25/2024 06/25/2024 06/25/2024 6:36 PM CDT Assessment Noted Time PHQ-9 Depression Total Score: 0 11/22/19 10:00 AM STERILIZER OPERATOR documented as of this encounter Care Teams Director Of Channel Marketing Relationship Specialty Start Date End Date Marco Woods MD #2 [facility] [address] [place] [address] PCP - General Family Medicine 11/22/17 Kirsten Niño MD #[address] [address] Consulting Physician Endocrinology 07/17/22 Chin Burrows MD #[address] [address] Consulting Physician General Surgery 11/22/22 Kelsea Root RN [place] Die Stamping Press Operator 06/15/23 08/26/23 Michelle Mendes APRN, SUPERVISOR DAIRY SANITATION #2 [facility] [address] [place] [address] Nurse Practitioner Advanced Practice Nurse 08/14/22 Chantelle Nix APRN, SUPERVISOR DAIRY SANITATION #2 [place] [address] Nurse Practitioner Advanced Practice Nurse 02/19/24 Analia Meza MD #[address] [phone] Consulting Physician Otolaryngology 05/11/25 documented as of this encounter
--- OUTSIDE RECORDS SUMMARY | 2025-05-28 08:50 | XMS_ITS | Encounter Summary ---
Author Organization [facility] Address [address] [place] [address] Phone Care Team Providers Care Precision Instrument And Tool Maker Name Role Phone Marco Woods MD Primary Care Provider Kirsten Niño MD Unavailable Chin Burrows MD Unavailable Kelsea Root RN Unavailable Unavailable Michelle Mendes APRN, STATION CAPTAIN Unavailable Chantelle Nix APRN, STATION CAPTAIN Unavailable Analia Meza MD Unavailable [phone] Reason for Visit * Reason Comments Medication Refill Encounter Details Date Type Department Care Team (Late st Contact Info) Description 05/27/2023 Refill [facility] #[address] [place] [address] Marco Woods MD #[address] [facility] [address] [address] Medication Refill Social History Tobacco Use Types [...] Sex Assigned at Female 11/22/2023 11:58 AM STAFF ENGINEER Legal Sex Female 11:34 PM CDT Gender Identity Female 11/22/2023 11:58 AM STAFF ENGINEER Sexual Orientation Not on file Occupation [...] [place] 03/05/23 Office Visit Mirtha Steiner APRN, STATION CAPTAIN [facility] [place] 02/07/23 Office Visit Marco Woods MD [facility] [place] 01/23/23 Office Visit Rebecca Liu APRN, STATION CAPTAIN [facility] [place] 12/05/22 Office Visit Marco Woods MD [facility] [place] 10/25/22 Office Visit Marco Woods MD [facility] [place] 08/29/22 Office Visit Ronald Shaffer APRN, STATION CAPTAIN [facility] Showing recent visits within past 365 days and meeting all other requirements Future Appointments Date Type Provider Dept 08/02/23 Appointment Marco Woods MD [facility] 08/07/23 Appointment Marco Woods MD [facility] Showing future appointments within next 90 days and meeting all other requirements documented in this encounter Plan of Treatment Upcoming Encounters Date Type Department Care Team (Late st Contact Info) Description 06/12/2025 11:00 AM CDT Office Visit [facility] Medical [facility] - Family Medicine - [place] #2 [place] [address] Marco Woods MD #2 [facility] [address] [place] [address] 07/01/2025 11:00 AM CDT Office Visit [facility] Medical [facility] - Ear, Nose & Throat - [place] #2 [place] [address] Analia Meza MD #[address] [address] 07/03/2025 5:30 PM CD[facility] [address] [place] [address] Analia Meza MD #2 [facility] [address] [place] [address] Discharge Disposition: Discharged to home or Selfcare 07/17/2025 10:30 AM CDT Office Visit [facility] Medical [facility] - Pulmonology & Sleep Medicine - [place] #2 [place] [address] Michelle Mendes APRN, STATION CAPTAIN #2 [facility] [address] [place] [address] 08/11/2025 9:45 AM CDT Office Visit [facility] - Endocrinology [facility] #2 [place] [address] Kirsten Niño MD #[address] [address] documented as of this encounter Visit Diagnoses Diagnosis Primary insomnia Persistent disorder of initiating or maintaining sleep documented in this encounter Additional Health Concerns Infection Onset Date Last Indicated Resolved Time COVID - 06/01/2023 06/01/2023 06/01/2023 8:16 AM CDT COVID - 11/01/2023 11/01/2023 11/11/2023 12:1 6 AM STAFF ENGINEER COVID - 06/25/2024 06/25/2024 06/25/2024 6:36 PM CDT Assessment Noted Time PHQ-9 Depression Total Score: 0 11/22/19 10:00 AM STAFF ENGINEER documented as of this encounter Care Teams Precision Instrument And Tool Maker Relationship Specialty Start Date End Date Macro Woods MD #2 [facility] [address] [place] [address] PCP - General Family Medicine 11/22/17 Kirsten Niño MD #[address] [address] Consulting Physician Endocrinology 07/17/22 Chin Burrows MD #[address] [address] Consulting Physician General Surgery 11/22/22 Kelsea Root RN [place] Shag Truck Driver 06/15/23 08/26/23 Michelle Mendes APRN, STATION CAPTAIN #2 [facility] [address] [place] [address] Nurse Practitioner Advanced Practice Nurse 08/14/22 Chantelle Nix APRN, STATION CAPTAIN #2 [place] [address] Nurse Practitioner Advanced Practice Nurse 02/19/24 Analia Meza MD #2 [facility] [address] [place] [address] Consulting Physician Otolaryngology 05/11/25 documented as of this encounter
--- OUTSIDE RECORDS SUMMARY | 2025-05-28 08:50 | XMS_ITS | Encounter Summary ---
Author Organization [facility] Address [address] [place] [address] Phone Care Team Providers Care Border Measurer And Cutter Name Role Phone Marco Woods MD Primary Care Provider Kirsten Niño MD Unavailable Chin Burrows MD Unavailable Kelsea Root RN Unavailable Unavailable Michelle Mendes APRN, FUR JOINER Unavailable Chantelle Nix APRN, FUR JOINER Unavailable Analia Meza MD Unavailable [phone] Reason for Visit * Reason Comments Medication Refill Encounter Details Date Type Department Care Team (Late st Contact Info) Description 04/25/2021 Refill [facility] [address] [place] [address] Mirtha Steiner APRN, FUR JOINER #2 [place] [address] Medication Refill Social History Tobacco Use Types Packs/Day Years Used Date Smoking Tobacco: Never Smokeless Tobacco: Former Alcohol Use Standard Drinks/Week Comments Not Currently 0 (1 standard drink = 0.6 oz pur e alcohol) Sexually Active Control Partners Comments Not Currently Comments No Sex and Gender Information Value Date Recorded Sex Assigned at Female 11/22/2023 11:58 AM MIDDLE SCHOOL FRENCH TEACHER Legal Sex Female 11:34 PM CDT Gender Identity Female 11/22/2023 11:58 AM [employer] SCHOOL FRENCH TEACHER Sexual Orientation Not on file Occupation [...] - Family Medicine - Mirtha Haq APN, FUR JOINER 5 months ago Asthma, unspecified asthma severity, unspecified whether complicated, unspecified whether persistent [facility] - Family Medicine - [place] Marco Woods MD Upcoming Appointments Future Appointments In 2 months Marco Woods MD [facility] Medical [facility] - Family Medicine - [place], [facility] In 2 months Kirsten Niño MD [facility] Medical [facility] Endocrinology - [facility] In 3 months Michelle Mendes APN, FUR JOINER [facility] Medical [facility] - Pulmonology & Sleep Medicine - [facility] MATHEMATICS INSTRUCTOR - Recent and Past Visits Recent Visits Date Type Provider Dept 03/25/21 [facility]22[facility]21 Office Visit Marco Woods MD [facility] 02/07/21 Office Visit Marco Woods MD [facility] [place] 12/21/20 Telemedicine Mirtha Steiner APN, FUR JOINER [facility] 11/09/20 Office Visit Marco Woods MD [facility] [place] 09/06/20 Office Visit Marco Woods MD [facility] [place] 06/09/20 Office Visit Marco Woods MD [facility] 04/27/20 Office Visit Marco Woods MD [facility] Showing recent visits within past 460 days with a meds authorizing provider and meeting all other requirements Future Appointments Date Type Provider Dept 06/28/21 Appointment Marco Woods MD [facility] Showing future appointments within next 90 days with a meds authorizing provider and meeting all other requirements documented in this encounter Plan of Treatment Upcoming Encounters Date Type Department Care Team (Late st Contact Info) Description 06/12/2025 11:00 AM CDT Office Visit [facility] Medical [facility] - Family Medicine - [place] [address] [place] [address] Marco Woods MD [address] [address] 07/01/2025 11:00 AM CDT Office Visit [facility] - Ear, Nose & Throat - [place] #[address] [place] [address] Analia Meza MD #[address] [address] 07/03/2025 5:30 PM CDT [facility] [address] [place] [address] Analia Meza MD #[address] [place] [address] Discharge Disposition: Discharged to home or Selfcare 07/17/2025 10:30 AM CDT [facility] - [place] #2 [place] [address] Michelle Mendes APRN, FUR JOINER #[address] [address] 08/11/2025 9:45 AM CDT [facility] - Endocrinology - [place] #2 [place] [address] Kirsten Niño MD #[address] [address] documented as of this encounter Visit Diagnoses Not on filedocumented in this encounter Additional Health Concerns Infection Onset Date Last Indicated Resolved Time COVID - 19 06/29/2022 06/29/2022 07/09/2022 12:1 6 AM CDT COVID - 19 11/20/2022 11/20/2022 11/24/2022 8:51 AM MIDDLE SCHOOL FRENCH TEACHER COVID - 19 12/31/2022 12/31/2022 01/10/2023 12:1 8 AM CDT COVID - 19 Confirmed 12/31/2022 12/31/2022 023 12:17 AM CDT COVID - 19 06/01/2023 06/01/2023 06/01/2023 8:16 AM CDT COVID - 19 11/01/2023 11/01/2023 11/11/2023 12:1 6 AM MIDDLE SCHOOL FRENCH TEACHER COVID - 19 06/25/2024 06/25/2024 06/25/2024 6:36 PM CDT Assessment Noted Time PHQ-9 Depression Total Score: 0 11/22/19 10:00 AM MIDDLE SCHOOL FRENCH TEACHER documented as of this encounter Care Teams Border Measurer And Cutter Relationship Specialty Start Date End Date Marco Woods MD #2 [facility] [address] [place] [address] PCP - General Family Medicine 11/22/17 Kirsten Niño MD #2 [facility] [address] [place] [address] Consulting Physician Endocrinology 07/17/22 Chin Burrows MD #2 [facility] [address] [place] [address] Consulting Physician General Surgery 11/22/22 Kelsea Root RN [place] Hunting And Fishing Guide 06/15/23 08/26/23 Michelle Mendes APRN, FUR JOINER #2 [facility] [address] [place] [address] Nurse Practitioner Advanced Practice Nurse 08/14/22 Chantelle Nix APRN, FUR JOINER #2 [place] [address] Nurse Practitioner Advanced Practice Nurse 02/19/24 Analia Meza MD #[address] [phone] Consulting Physician Otolaryngology 05/11/25 documented as of this encounter
--- OUTSIDE RECORDS SUMMARY | 2025-05-28 08:50 | XMS_ITS | Encounter Summary ---
Author Organization [facility] Address [address] [place] [address] Phone Care Team Providers Care Summer Law Associate Name Role Phone Marco Woods MD Primary Care Provider [phone] Kirsten Niño MD Unavailable Chin Burrows MD Unavailable Kelsea Root RN Unavailable Unavailable Michelle Mendes APRN, MANAGER MARITIME Unavailable [phone] Chantelle Nix APRN, MANAGER MARITIME Unavailable Analia Meza MD Unavailable [phone] Reason for Visit * Reason Comments Medication Refill Encounter Details Date Type Department Care Team (Late st Contact Info) Description 05/27/2023 Refill [facility] - [facility] [address] [place] [address] Mirtha Steiner APRN, MANAGER MARITIME #2 [place] [address] Medication Refill Social History Tobacco [...] Sex Assigned at Female 11/22/2023 11:58 AM SUPERVISING FIRE MARSHAL Legal Sex Female 11:34 PM CDT Gender Identity Female 11/22/2023 11:58 AM SUPERVISING FIRE MARSHAL Sexual Orientation Not on file Occupation Industry [...] 04/03/23 Office Visit Marco Woods MD [facility] [place] 03/12/23 Office Visit Marco Woods MD [facility] [place] 03/05/23 Office Visit Mirtha Steiner APRN, MANAGER MARITIME [facility] [place] 02/07/23 Office Visit Marco Woods MD [facility] [place] 01/23/23 Office Visit Rebecca Liu APRN, MANAGER MARITIME [facility] [place] 12/05/22 Office Visit Marco Woods MD [facility] 10/25/22 Office Visit Marco Woods MD [facility] [place] 08/29/22 Office Visit Ronald Shaffer APRN, MANAGER MARITIME [facility] Showing recent visits within past 365 days and meeting all other requirements Future Appointments Date Type Provider Dept 08/02/23 Appointment Marco Woods MD [facility] [place] 08/07/23 Appointment [facility] Show[facility] future appointments within next 90 days and meeting all other requirements documented in this encounter Plan of Treatment Upcoming Encounters Date Type Department Care Team (Late st Contact Info) Description 06/12/2025 11:00 AM CDT Office Visit [facility] Medical [facility] - Family Medicine - [place] #2 [place] [address] Marco Woods MD #2 [facility] [address] [place] [address] 07/01/2025 11:00 AM CDT Office Visit [facility] Medical [facility] - Ear, Nose & Throat - [place] #2 [place] [address] Anaila Meza MD #[address] [address] 07/03/2025 5:30 PM CDT Appointment [facility] [address] [place] [address] Analia Meza MD #[address] [address] Discharge Disposition: Discharged to home or Selfcare 07/17/2025 10:30 AM CDT Office Visit [facility] Medical [facility] - Pulmonology & Sleep Medicine - [place] #[address] [place] [address] Michelle Mendes APRN, MANAGER MARITIME #2 [facility] [address] [place] [address] 08/11/2025 9:45 AM CDT Office Visit [facility] - Endocrinology [facility] [address] [place] [address] Kirsten Niño MD #[address] [address] documented as of this encounter Visit Diagnoses Diagnosis Anxiety Anxiety state, unspecified documented in this encounter Additional Health Concerns Infection Onset Date Last Indicated Resolved Time COVID - 06/01/2023 06/01/2023 06/01/2023 8:16 AM CDT COVID - 11/01/2023 11/01/2023 11/11/2023 12:1 6 AM SUPERVISING FIRE MARSHAL COVID - 06/25/2024 06/25/2024 06/25/2024 6:36 PM CDT Assessment Noted Time PHQ-9 Depression Total Score: 0 11/22/19 10:00 AM SUPERVISING FIRE MARSHAL documented as of this encounter Care Teams Summer Law Associate Relationship Specialty Start Date End Date Marco Woods MD [address] [address] PCP - General Family Medicine 11/22/17 Kirsten Niño MD [address] [address] Consulting Physician Endocrinology 07/17/22 Chin Burrows MD #[address] [phone] Consulting Physician General Surgery 11/22/22 Kelsea Root RN [place] Victim Advocate 06/15/23 08/26/23 Michelle Mendes APRN, MANAGER MARITIME #2 [facility] [address] [place] [address] Nurse Practitioner Advanced Practice Nurse 08/14/22 Chantelle Nix APRN, MANAGER MARITIME #2 [place] [address] Nurse Practitioner Advanced Practice Nurse 02/19/24 Analia Meza MD #2 [facility] [address] [place] [address] Consulting Physician Otolaryngology 05/11/25 documented as of this encounter
--- OUTSIDE RECORDS SUMMARY | 2025-05-28 08:50 | XMS_ITS | Encounter Summary ---
Author Organization [facility] Address [address] [place] [address] Phone Care Team Providers Care Supervisor Park Workers Name Role Phone Marco Woods MD Primary Care Provider Kirsten Niño MD Unavailable Chin Burrows MD Unavailable [phone] Michelle Mendes APRN, SUPERINTENDENT GENERAL Unavailable [phone] Chantelle Nix APRN, SUPERINTENDENT GENERAL Unavailable Analia Meza MD Unavailable [phone] Reason for Visit * Reason Comments Medication Refill Encounter Details Date Type Department Care Team (Late st Contact Info) Description 12/23/2024 Refill [facility] - Gastroenterology - [place] #2 [place] [address] Chantelle Nix APRN, SUPERINTENDENT GENERAL #2 [place] [address] Medication Refill Social History Tobacco Use Types Packs/Day Years Used Date Smoking Tobacco: Never Smokeless Tobacco: Never Alcohol Use Standard Drinks/Week Comments Not Currently 0 (1 standard drink = 0.6 oz pur e alcohol) [facility] Utilities Answer Date Recorded In the past 12 months has [employer], gas, oil, or water company threatened to [...] declined 06/25/2024 How often do you attend roman catholic or presybeterian serv ices? Patient declined 06/25/2024 Do you belong to any clubs o r organizations such as roman catholic groups, unions, fraternal or athletic groups, [...] Total Score - Questions 1-9 18 10/24 [facility] - Occupational Stress Questionnaire Answer Date [...] any time in the past 12 m [facility], were you homeless or [...] Sex Assigned at Female 11/22/2023 11:58 AM PSYCHIATRIC NP Legal Sex Female 11:34 PM CDT Gender Identity Female 11/22/2023 11:58 AM PSYCHIATRIC NP Sexual Orientation Not on file Occupation Industry Job Start Date Job End Date disabled Not on file Not on file Not on file documented as of this encounter Miscellaneous Notes * Telephone Encounter - Denise Honeycutt RN - 12/24/2024 8:23 AM PSYCHIATRIC NP Medication refilled and signed per [facility] chronic medication standing order for pediatric and adult patients. HIATRIC NP documented in this encounter Plan of Treatment Upcoming Encounters Date Type Department Care Team (Late st Contact Info) Description 06/12/2025 11:00 AM CDT Office Visit [facility] - Family Medicine - [place] #2 [place] [address] Marco Woods MD #2 [facility] [address] [place] [address] 07/01/2025 11:00 AM CDT Office Visit [facility] Medical [facility] - Ear, Nose & Throat - [place] #2 [place] [address] Analia Meza MD #2 [facility] [address] [place] [address] 07/03/2025 5:30 PM CD[facility] [address] [place] [address] Analia Meza MD #[address] [phone] Discharge Disposition: Discharged to home or Selfcare 07/17/2025 10:30 AM CDT Office Visit [facility] Medical [facility] - Pulmonology & Sleep Medicine - [place] #2 [place] [address] Michelle Mendes APRN, DREW #2 [facility] [address] [place] [address] 08/11/2025 9:45 AM CDT Office Visit [facility] - Endocrinology - [place] #2 [place] [address] Kirsten Niño MD #2 [facility] [address] [place] [address] documented as of this encounter Visit Diagnoses Diagnosis Chronic constipation Unspecified constipation documented in this encounter Additional Health Concerns Assessment Noted Time PHQ-9 Depression Total Score: 18 024 10:00 AM PSYCHIATRIC NP documented as of this encounter Care Teams Supervisor Park Workers Relationship Specialty Start Date End Date Marco Woods MD #2 [facility] [address] [place] [address] PCP - General Family Medicine 11/22/17 Kirsten Niño MD #[address] [address] Consulting Physician Endocrinology 07/17/22 Chin Burrows MD #[address] [address] Consulting Physician General Surgery 11/22/22 Michelle Mendes APRN, SUPERINTENDENT GENERAL #2 [facility] [address] [place] [address] Nurse Practitioner Advanced Practice Nurse 08/14/22 Chantelle Nix APRN, SUPERINTENDENT GENERAL #[address] [place] [address] Nurse Practitioner Advanced Practice Nurse 02/19/24 Analia Meza MD #[address] [place] [address] Consulting Physician Otolaryngology 05/11/25 documented as of this encounter
--- OUTSIDE RECORDS SUMMARY | 2025-05-28 08:50 | XMS_ITS | Encounter Summary ---
Author Organization [facility] Address [address] [place] [address] Phone Care Team Providers Care Family Services Manager Name Role Phone Marco Woods MD Primary Care Provider Kirsten Niño MD Unavailable Chin Burrows MD Unavailable Michelle Mendes WORM PICKER, LABORER CONCRETE PAVING Unavailable Chantelle Nix WORM PICKER, LABORER CONCRETE PAVING Unavailable Analia Meza MD Unavailable [phone] Reason for Visit * Reason Onset Date Comments Advice Only 12/01/2024 Encounter Details Date Type Department Care Team (Late st Contact Info) Description 12/01/2024 Telephone [facility] [address] [place] [address] Marco Woods MD #2 [facility] [place] [address] Advice Only Social History Tobacco Use Types Packs/Day Years Used Date Smoking Tobacco: Never Smokeless Tobacco: Never Alcohol Use Standard Drinks/Week Comments Not Currently 0 (1 standard drink = 0.6 oz pur e alcohol) [facility] Utilities Answer Date Recorded In the [...] declined 06/25/2024 How often do you attend denominational or jewish serv ices? Patient declined 06/25/2024 [...] - Questions 1-9 18 10/24 [facility] - Occupational Stress Questionnaire [...] place to sleep or slept in a retirement (including now)? Patient declined 11/28/2023 Housing Stability [...] any time in the past 12 m [facility], were you homeless or living in a retirement (including now)? Patient unable to answer 06/25/2024 Education Answer Date Recorded What is the highest level of school you have completed or the highest degree you have received? 12th grade 04/03/2023 Sexually Active Control Partners Comments Not Currently Comments No Sex and Gender Information Value Date Recorded Sex Assigned at Female 11/22/2023 11:58 AM DESKTOP SUPPORT SPECIALIST Legal Sex Female 11:34 PM CDT Gender Identity Female 11/22/2023 11:58 AM DESKTOP SUPPORT SPECIALIST Sexual Orientation Not on file Occupation Industry Job Start Date Job End Date disabled Not on file Not on file Not on file documented as of this encounter Miscellaneous Notes * Telephone Encounter - Shaun Hall - 12/01/2024 11:05 AM DESKTOP SUPPORT SPECIALIST Symptoms: Abdominal Pain - Female - Not , Diarrhea, swollen in legs, difficulty walking Outcome: Warm transfer to an emergent RN NOW! Reason: Severe pain now The caller accepted this outcome. TOP SUPPORT SPECIALIST documented in this encounter Plan of Treatment Upcoming Encounters Date Type Department Care Team (Late st Contact Info) Description 06/12/2025 11:00 AM CDT Office Visit [facility] - Family Medicine - [place] #2 [place] [address] Marco Woods MD #2 [facility] [address] [place] [address] 07/01/2025 11:00 AM CDT Office Visit [facility] - Ear, Nose & Throat - [place] #2 [place] [address] Analia Meza MD #2 [facility] [address] [place] [address] 07/03/2025 5:30 PM CD[facility] [address] [place] [address] Analia Meza MD #[address] [phone] Discharge Disposition: Discharged to home or Selfcare 07/17/2025 10:30 AM CDT Office Visit [facility] - Pulmonology & Sleep Medicine - [place] #2 [place] [address] Michelle Mendes APRN, LABORER CONCRETE PAVING #2 [facility] [address] [place] [address] 08/11/2025 9:45 AM CDT Office Visit [facility] - Endocrinology - [place] #2 [place] [address] Kirsten Niño MD #2 [facility] [address] [place] [address] documented as of this encounter Visit Diagnoses Not on filedocumented in this encounter Additional Health Concerns Assessment Noted Time PHQ-9 Depression Total Score: 18 024 10:00 AM DESKTOP SUPPORT SPECIALIST documented as of this encounter Care Teams Family Services Manager Relationship Specialty Start Date End Date Marco Woods MD #2 [facility] [address] [place] [address] PCP - General Family Medicine 11/22/17 Kirsten Niño MD #[address] [address] Consulting Physician Endocrinology 07/17/22 Chin Burrows MD #[address] [place] [address] Consulting Physician General Surgery 11/22/22 Michelle Mendes APRN, LABORER CONCRETE PAVING #2 [facility] [address] [place] [address] Nurse Practitioner Advanced Practice Nurse 08/14/22 Chantelle Nix APRN, LABORER CONCRETE PAVING #2 [place] [address] Nurse Practitioner Advanced Practice Nurse 02/19/24 Analia Meza MD #2 [facility] [address] [place] [address] Consulting Physician Otolaryngology 05/11/25 documented as of this encounter
--- OUTSIDE RECORDS SUMMARY | 2025-05-28 08:50 | XMS_ITS | Encounter Summary ---
Author Organization [facility] Address [address] [place] [address] Phone Care Team Providers Care Operations Recruiter Name Role Phone Marco Woods MD Primary Care Provider Kirsten Niño MD Unavailable Chin Burrows MD Unavailable [phone] Kelsea Root RN Unavailable Unavailable Michelle Mendes APRN, COURT OF APPEALS JUDGE Unavailable [phone] Chantelle Nix APRN, COURT OF APPEALS JUDGE Unavailable Analia Meza MD Unavailable [phone] Reason for Visit * Reason Comments Medication Refill Encounter Details Date Type Department Care Team (Late st Contact Info) Description 12/16/2022 Refill [facility] [address] [place], [place] [id number] Marco Woods MD #2 [facility] [address] [place] [address] Medication Refill Social History Tobacco Use Types Packs/Day Years Used Date Smoking Tobacco: Never Smokeless Tobacco: Never Alcohol Use Standard Drinks/Week Comments Not Currently 0 (1 standard drink = 0.6 oz pur e alcohol) Sexually Active Control Partners Comments Not Currently Comments No Sex and Gender Information Value Date Recorded Sex Assigned at Female 11/22/2023 11:58 AM CLINICAL LABORATORY AIDES TEACHER Legal Sex Female 11:34 PM CDT Gender Identity Female 11/22/2023 11:58 AM CLINICAL LABORATORY AIDES TEACHER Sexual Orientation Not on file Occupation Industry Job Start Date Job End Date disabled Not on file Not on file Not on file COVID-19 Exposure Response Date Recorded In the last 10 days, have yo u been in contact with someone who was confirmed or suspected to have Coronavirus/COVID-19? No / Unsure 12/18/2022 9:05 AM CLINICAL LABORATORY AIDES TEACHER documented as of this encounter Miscellaneous Notes * Telephone Encounter - Brooklyn Preciado RN - 12/19/2022 9:23 AM CST Duplicate request. ICAL LABORATORY AIDES TEACHER * Telephone Encounter - Celia Valles RN - 12/18/2022 2:00 PM CLINICAL LABORATORY AIDES TEACHER duplicate ICAL LABORATORY AIDES TEACHER documented in this encounter Plan of Treatment Upcoming Encounters Date Type Department Care Team (Late st Contact Info) Description 06/12/2025 11:00 AM CDT [facility] - [place] #[address] [place] [address] Marco Woods MD #2 [facility] [address] [place] [address] 07/01/2025 11:00 AM CDT Office Visit [facility] - Ear, Nose & Throat - [place] #2 [place] [address] Analia Meza MD #2 [facility] [address] [place] [address] 07/03/2025 5:30 PM CDT [facility] [address] [place] [address] Analia Meza MD #2 [facility] [address] [place] [address] Discharge Disposition: Discharged to home or Selfcare 07/17/2025 10:30 AM CDT Office Visit [facility] - Pulmonology & Sleep Medicine - [place] #2 [place] [address] Michelle Mendes APRN, COURT OF APPEALS JUDGE #2 [facility] [address] [place] [address] 08/11/2025 9:45 AM CDT Office Visit [facility] - Endocrinology - [place] #2 [place] [address] Kirsten Niño MD #2 [facility] [address] [place] [address] documented as of this encounter Visit Diagnoses [...] 11/01/2023 11/01/2023 11/11/2023 12:1 6 AM CLINICAL LABORATORY AIDES TEACHER COVID - 19 06/25/2024 06/25/2024 06/25/2024 6:36 PM CDT Assessment Noted Time PHQ-9 Depression Total Score: 0 11/22/19 18 10:00 AM CLINICAL LABORATORY AIDES TEACHER documented as of this encounter Care Teams Operations Recruiter Relationship Specialty Start Date End Date Macro Woods MD #2 [facility] [address] [place] [address] PCP - General Family Medicine 11/22/17 Kirsten Niño MD #2 [facility] [address] [place] [phone] Consulting Physician Endocrinology 07/17/22 Chin Burrows MD #[address] [address] Consulting Physician General Surgery 11/22/22 Kelsea Root RN [place] Residential Property Manager 06/15/23 08/26/23 Michelle Mendes APRN, COURT OF APPEALS JUDGE #2 [facility] [address] [place] [address] Nurse Practitioner Advanced Practice Nurse 08/14/22 Chantelle Nix APRN, COURT OF APPEALS JUDGE #[address] [place] [address] Nurse Practitioner Advanced Practice Nurse 02/19/24 Analia Meza MD #[address] [phone] Consulting Physician Otolaryngology 05/11/25 documented as of this encounter
--- OUTSIDE RECORDS SUMMARY | 2025-05-28 08:50 | XMS_ITS | Encounter Summary ---
Author Organization [facility] Address [address] [place] [address] Phone Care Team Providers Care Deputy District Customs Director Name Role Phone Marco Woods MD Primary Care Provider [phone] Kirsten Niño MD Unavailable Chin Burrows MD Unavailable [phone] Kelsea Root RN Unavailable Unavailable Michelle Mendes APRN, DIRECTOR NON PROFIT Unavailable Chantelle Nix APRN, DIRECTOR NON PROFIT Unavailable Analia Meza MD Unavailable [phone] Reason for Visit * Reason Comments Medication Refill Encounter Details Date Type Department Care Team (Late st Contact Info) Description 07/16/2023 Refill [facility] #[address] [place] [phone] Marco Woods MD #[address] [facility] [address] [address] Medication Refill Social History Tobacco Use Types [...] Sex Assigned at Female 11/22/2023 11:58 AM ORGANIZATIONAL RESEARCH CONSULTANT Legal Sex Female 11:34 PM CDT Gender Identity Female 11/22/2023 11:58 AM ORGANIZATIONAL RESEARCH CONSULTANT Sexual Orientation Not on file Occupation [...] [facility] - [place] #2 [place] [address] Marco Woods MD #2 [facility] [address] [place] [address] 07/01/2025 11:00 AM CDT Office Visit [facility] - Ear, Nose & Throat - [place] #2 [place] [address] Analia Meza MD #2 [facility] [address] [place] [address] 07/03/2025 5:30 PM CDT [facility]ment [facility] [address] [place] [address] Analia Meza MD #2 [facility] [address] [place] [address] Discharge Disposition: Discharged to home or Selfcare 07/17/2025 10:30 AM CDT Office Visit [facility] - Pulmonology & Sleep Medicine - [place] #2 [place] [address] Michelle Mendes APRN, DIRECTOR NON PROFIT #2 [facility] [address] [place] [address] 08/11/2025 9:45 AM CDT Office Visit [facility] Medical [facility] - Endocrinology - [place] #2 [place] [address] Kirsten Niño MD #[address] [address] documented as of this encounter Visit Diagnoses Not on filedocumented in this encounter Additional Health Concerns Infection Onset Date Last Indicated Resolved Time COVID - 19 11/01/2023 11/01/2023 11/11/2023 12:1 6 AM ORGANIZATIONAL RESEARCH CONSULTANT COVID - 19 06/25/2024 06/25/2024 06/25/2024 6:36 PM CDT Assessment Noted Time PHQ-9 Depression Total Score: 0 11/22/19 10:00 AM ORGANIZATIONAL RESEARCH CONSULTANT documented as of this encounter Care Teams Deputy District Customs Director Relationship Specialty Start Date End Date Marco Woods MD #2 [facility] [address] [place] [address] PCP - General Family Medicine 11/22/17 Kirsten Niño MD #2 [facility] [address] [place] [address] Consulting Physician Endocrinology 07/17/22 Chin Burrows MD #2 [facility] [address] [place] [address] Consulting Physician General Surgery 11/22/22 Kelsea Root RN [place] Field Operator 06/15/23 08/26/23 Michelle Mendes APRN, DIRECTOR NON PROFIT #2 [facility] [address] [place] [address] Nurse Practitioner Advanced Practice Nurse 08/14/22 Chantelle Nix APRN, DIRECTOR NON PROFIT #2 [place] [address] Nurse Practitioner Advanced Practice Nurse 02/19/24 Analia Meza MD #[address] [address] Consulting Physician Otolaryngology 05/11/25 documented as of this encounter
--- OUTSIDE RECORDS SUMMARY | 2025-05-28 08:50 | XMS_ITS | Encounter Summary ---
Author Organization [facility] Address [address] [place] [address] Phone Care Team Providers Care Nail Sticker Name Role Phone Marco Woods MD Primary Care Provider Kirsten Niño MD Unavailable Chin Burrows MD Unavailable Kelsea Root RN Unavailable Unavailable Michelle Mendes APRN, HYDRAULIC CHAIR ASSEMBLER Unavailable Chantelle Nix APRN, HYDRAULIC CHAIR ASSEMBLER Unavailable Analia Meza MD Unavailable [phone] Reason for Visit * Reason Comments Medication Refill Encounter Details Date Type Department Care Team (Late st Contact Info) Description 03/30/2023 Refill [facility] #2 [place] [address] Mirtha Steiner APRN, HYDRAULIC CHAIR ASSEMBLER #[address] [address] Medication Refill Social History Tobacco Use Types Packs/Day Years Used Date Smoking Tobacco: Never Smokeless Tobacco: Never Alcohol Use Standard Drinks/Week Comments Not Currently 0 (1 standard drink = 0.6 oz pur e alcohol) Sexually Active Control Partners Comments Not Currently Comments No Sex and Gender Information Value Date Recorded Sex Assigned at Female 11/22/2023 11:58 AM RUBBER COMPOUNDER MIXER Legal Sex Female 11:34 PM CDT Gender Identity Female 11/22/2023 11:58 AM RUBBER COMPOUNDER MIXER Sexual Orientation Not on file Occupation [...] [place] 03/05/23 Office Visit Mirtha Steiner APRN, [facility] [place] 02/07/23 Office Visit Marco Woods MD [facility] 01/23/23 Office Visit Rebecca Liu APRN, [facility] [place] 12/05/22 Office Visit Marco Woods MD [facility] [place] 10/25/22 Office Visit Marco [facility] MD [facility] [place] Showing recent visits within past 182 [...] CDT Office Visit [facility] - Family Medicine - [place] #2 [place] [address] Marco Woods MD #2 [facility] [address] [place] [address] 07/01/2025 11:00 AM CDT Office Visit [facility] - Ear, Nose & Throat - [place] #2 [place] [address] Analia Meza MD #2 [facility] [address] [place] [address] 07/03/2025 5:30 PM CD[facility] [address] [place] [address] Analia Meza MD #[address] [place] [address] Discharge Disposition: Discharged to home or Selfcare 07/17/2025 10:30 AM CDT [facility] - Pulmonology & Sleep Medicine - [place] #2 [place] [address] Michelle Mendes APRN, HYDRAULIC CHAIR ASSEMBLER #2 [facility] [address] [place] [address] 08/11/2025 9:45 AM CDT Office Visit [facility] - Endocrinology - [place] #2 [facility] [place] [address] Kirsten Niño MD #2 [facility] [address] [place] [address] documented as of this encounter Visit Diagnoses Diagnosis Bipolar 1 disorder (HCC) Bipolar I disorder, most recent episode (or current) unspecified Anxiety Anxiety state, unspecified documented in this encounter Additional Health Concerns Infection Onset Date Last Indicated Resolved Time COVID - 19 06/01/2023 06/01/2023 06/01/2023 8:16 AM CDT COVID - 11/01/2023 11/01/2023 11/11/2023 12:1 6 AM RUBBER COMPOUNDER MIXER COVID - 06/25/2024 06/25/2024 06/25/2024 6:36 PM CDT Assessment Noted Time PHQ-9 Depression Total Score: 0 11/22/19 10:00 AM RUBBER COMPOUNDER MIXER documented as of this encounter Care Teams Nail Sticker Relationship Specialty Start Date End Date Marco Woods MD #2 [facility] [address] [place] [address] PCP - General Family Medicine 11/22/17 Kirsten Niño MD #[address] [address] Consulting Physician Endocrinology 07/17/22 Chin Burrows MD #2 [facility] [address] [place] [address] Consulting Physician General Surgery 11/22/22 Kelsea Root, JUWAN [place] Field Crops Harvest Machine Operator 06/15/23 08/26/23 Michelle Mendes APRN, HYDRAULIC CHAIR ASSEMBLER #2 [facility] [address] [place] [address] Nurse Practitioner Advanced Practice Nurse 08/14/22 Chantelle Nix APRN, HYDRAULIC CHAIR ASSEMBLER #[address] [place] [address] Nurse Practitioner Advanced Practice Nurse 02/19/24 Analia Meza MD #[address] [facility] [address] [address] Consulting Physician Otolaryngology 05/11/25 documented as of this encounter
--- OUTSIDE RECORDS SUMMARY | 2025-05-28 08:50 | XMS_ITS | Encounter Summary ---
Author Organization [facility] Address [address] [place] [address] Phone Care Team Providers Care Branch Library Clerk Name Role Phone Marco Woods MD Primary Care Provider Kirsten Niño MD Unavailable Chin Burrows MD Unavailable Michelle Mendes APRN, CHILD ABUSE WORKER Unavailable [phone] Chantelle Nix APRN, CHILD ABUSE WORKER Unavailable Analia Meza MD Unavailable [phone] Reason for Visit * Reason Comments Medication Refill Encounter Details Date Type Department Care Team (Late st Contact Info) Description 05/10/2024 Refill [facility] - Pulmonology & Sleep Medicine [facility] #[address] [place] [phone] Michelle Mendes APRN, CHILD ABUSE WORKER #[address] [address] Medication Refill Social History Tobacco Use Types Packs/Day Years Used Date Smoking Tobacco: Never Smokeless Tobacco: Never Alcohol Use Standard Drinks/Week Comments Not Currently 0 (1 standard drink = 0.6 oz pur e alcohol) [facility] Utilities Answer Date Recorded In the past 12 months has Project Manager, gas, oil, or water [employer] threatened to shut off services in your home? Patient declined 11/28/2023 Social Connection and Isolation Panel Answer Date Recorded In a typical week, how many times do you talk on the phone with family, friends, or neighbors? Patient declined 11/28/2023 How often do you get togethe r with friends or relatives? Patient declined 11/28/2023 How often do you attend taoism or adventist serv ices? Patient declined 11/28/2023 Do you belong to any clubs o r organizations such as taoism groups, unions, fraternal or athletic groups, or [...] 10/24 [facility]at [facility] - Occupational Stress Questionnaire Answer [...] Sex Assigned at Female 11/22/2023 11:58 AM SET UP MECHANIC STAMPING MACHINES Legal Sex Female 11:34 PM CDT Gender Identity Female 11/22/2023 11:58 AM SET UP MECHANIC STAMPING MACHINES Sexual Orientation Not on file Occupation Industry [...] [facility] - [place] #[address] [place] [address] Marco Woods MD #[address] [address] 07/01/2025 11:00 AM CDT Office Visit [facility] - Ear, Nose & Throat - [place] #2 [place] [address] Analia Meza MD #[address] [address] 07/03/2025 5:30 PM CDT [facility] [place] [address] Analia Meza MD #2 [facility] [address] [address] Discharge Disposition: Discharged to home or Selfcare 07/17/2025 10:30 AM CDT [facility] - Pulmonology & Sleep Medicine - [place] #2 [place] [address] Michelle Mendes APRN, CHILD ABUSE WORKER #[address] [address] 08/11/2025 9:45 AM CDT Office Visit [facility] - [place] #2 [place] [address] Kirsten Niño MD #[address] [address] documented as of this encounter Visit Diagnoses Not on filedocumented in this encounter Additional Health Concerns Infection Onset Date Last Indicated Resolved Time COVID - 19 06/25/2024 06/25/2024 06/25/2024 6:36 PM CDT Assessment Noted Time PHQ-9 Depression Total Score: 18 11/20/ 024 10:00 AM SET UP MECHANIC STAMPING MACHINES documented as of this encounter Care Teams Branch Library Clerk Relationship Specialty Start Date End Date Marco Woods MD #2 [facility] [address] [place] [address] PCP - General Family Medicine 11/22/17 Kirsten Niño MD #2 [facility] [address] [place] [address] Consulting Physician Endocrinology 07/17/22 Chin Burrows MD #[address] [address] Consulting Physician General Surgery 11/22/22 Michelle Mendes APRN, CHILD ABUSE WORKER #2 [facility] [address] [place] [address] Nurse Practitioner Advanced Practice Nurse 08/14/22 Chantelle Nix APRN, CHILD ABUSE WORKER #2 [place] [address] Nurse Practitioner Advanced Practice Nurse 02/19/24 Analia Meza MD #[address] [address] Consulting Physician Otolaryngology 05/11/25 documented as of this encounter
--- OUTSIDE RECORDS SUMMARY | 2025-05-28 08:50 | XMS_ITS | Encounter Summary ---
Author Organization [facility] Address [address] [place] [address] Phone Care Team Providers Care Livestock Commission Agent Name Role Phone Marco Woods MD Primary Care Provider Kirsten Niño MD Unavailable Chin Burrows MD Unavailable Kelsea Root RN Unavailable Unavailable Michelle Mendes APRN, DISHING MACHINE OPERATOR Unavailable Chantelle Nix APRN, DISHING MACHINE OPERATOR Unavailable Analia Meza MD Unavailable [phone] Reason for Visit * Reason Comments Medication Refill Encounter Details Date Type Department Care Team (Late st Contact Info) Description 05/08/2023 Refill [facility] #[address] [place] [address] Marco Woods MD #[address] [facility] [address] [address] Medication Refill Social History Tobacco Use Types [...] Sex Assigned at Female 11/22/2023 11:58 AM MARINE CHRONOMETER ASSEMBLER Legal Sex Female 11:34 PM CDT Gender Identity Female 11/22/2023 11:58 AM MARINE CHRONOMETER ASSEMBLER Sexual Orientation Not on file Occupation Industry [...] CNP - 05/10/2023 10:28 PM CDT [place] PERSONAL CARE AID reviewed, UDS reviewed. Approved * Telephone Encounter [...] [place] 01/23/23 Office Visit Rebecca Liu, MADDY, DISHING MACHINE OPERATOR [facility] 08/29/22 Office Visit Ronald Shaffer APRN, DISHING MACHINE OPERATOR [facility] Showing recent visits within past 365 days and meeting all other requirements Future Appointments Date Type Provider Dept 08/02/23 Appointment Marco Woods MD [facility] 08/07/23 Appointment Marco Woods MD [facility] Showing future appointments within next 90 days and meeting all other requirements documented in this encounter Plan of Treatment Upcoming Encounters Date Type Department Care Team (Late st Contact Info) Description 06/12/2025 11:00 AM CDT [facility] - [place] #2 [place] [address] Marco Woods MD #[address] [address] 07/01/2025 11:00 AM CDT Office Visit [facility] Medical Group - Ear, Nose & Throat - [place] #2 [place] [address] Analia Meza MD #[address] [address] 07/03/2025 5:30 PM CDT Appointment [facility] CT [address] [place] [address] Analia Meza MD #[address] [address] Discharge Disposition: Discharged to home or Selfcare 07/17/2025 10:30 AM CDT Office Visit [facility] - Pulmonology & Sleep Medicine - [place] #2 [facility] [place] [address] Michelle Mendes APRN, DISHING MACHINE OPERATOR #2 [facility] [address] [place] [address] 08/11/2025 9:45 AM CDT Office Visit [facility] Medical Group - Endocrinology - [place] #2 [facility] [place] [address] Kirsten Niño MD #2 [facility] [address] [place] [address] documented as of this encounter Visit Diagnoses Diagnosis Anxiety Anxiety state, unspecified documented in this encounter Additional Health Concerns Infection Onset Date Last Indicated Resolved Time COVID - 19 06/01/2023 06/01/2023 06/01/2023 8:16 AM CDT COVID - 19 11/01/2023 11/01/2023 11/11/2023 12:1 6 AM MARINE CHRONOMETER ASSEMBLER COVID - 19 06/25/2024 06/25/2024 06/25/2024 6:36 PM CDT Assessment Noted Time PHQ-9 Depression Total Score: 0 11/22/19 10:00 AM MARINE CHRONOMETER ASSEMBLER documented as of this encounter Care Teams Livestock Commission Agent Relationship Specialty Start Date End Date Marco Woods MD #2 [facility] [address] [place] [address] PCP - General Family Medicine 11/22/17 Kirsten Niño MD #2 [facility] [address] [place] [address] Consulting Physician Endocrinology 07/17/22 Chin Burrows MD #2 [facility] [address] [place] [address] Consulting Physician General Surgery 11/22/22 Kelsea Root RN [place] Room Server 06/15/23 08/26/23 Michelle Mendes APRN, DISHING MACHINE OPERATOR #2 [facility] [address] [place] [address] Nurse Practitioner Advanced Practice Nurse 08/14/22 Chantelle Nix APRN, DISHING MACHINE OPERATOR #2 [place] [address] Nurse Practitioner Advanced Practice Nurse 02/19/24 Analia Meza MD #2 [facility] [address] [place] [address] Consulting Physician Otolaryngology 05/11/25 documented as of this encounter
--- OUTSIDE RECORDS SUMMARY | 2025-05-28 08:50 | XMS_ITS | Encounter Summary ---
Author Organization [facility] Address [address] [place] [address] Phone Care Team Providers Care Forming Fixer Name Role Phone Marco Woods MD Primary Care Provider [phone] Kirsten Niño MD Unavailable Chin Burrows MD Unavailable Kelsea Root RN Unavailable Unavailable Michelle Mendes APRN, BUSGIRL Unavailable Chantelle Nix APRN, BUSGIRL Unavailable Analia Meza MD Unavailable [phone] Reason for Visit * Reason Onset Date Comments Medication Management 07/24/2022 Encounter Details Date Type Department Care Team (Late st Contact Info) Description 07/24/2022 [facility] [address] [place] [address] Marco Woods MD #2 [place] [address] Medication Management Social History Tobacco Use Types Packs/Day Years Used Date Smoking Tobacco: Never Smokeless Tobacco: Former Alcohol Use Standard Drinks/Week Comments Not Currently 0 (1 standard drink = 0.6 oz pur e alcohol) Sexually Active Control Partners Comments Not Currently Comments No Sex and Gender Information Value Date Recorded Sex Assigned at Female 11/22/2023 11:58 AM WAIST PLEATER Legal Sex Female 11:34 PM CDT Gender Identity Female 11/22/2023 11:58 AM WAIST PLEATER Sexual Orientation Not on file Occupation Industry [...] 11:00 AM CDT Office Visit [facility] - Family Medicine - [place] #2 [place] [address] Marco Woods MD #2 [facility] [address] [place] [address] 07/01/2025 11:00 AM CDT Office Visit [facility] - Ear, Nose & Throat - [place] #2 [place] [address] Analia Meza MD #[address] [phone] 07/03/2025 5:30 PM [facility] [place] [address] Analia Meza MD #[address] [address] Discharge Disposition: Discharged to home or Selfcare 07/17/2025 10:30 AM CDT Office Visit [facility] - Pulmonology & Sleep Medicine - [place] #2 [place] [address] Michelle Mendes APRN, BUSGIRL #2 [facility] [address] [place] [address] 08/11/2025 9:45 AM CDT [facility] - [facility] - [place] #[address] [place] [phone] [facility]irsten Niño MD [facility]2 [facility] [address] [place] [address] documented as of this encounter Visit Diagnoses Not on filedocumented in this encounter Additional Health Concerns Infection Onset Date Last Indicated Resolved Time COVID - 19 11/20/2022 11/20/2022 11/24/2022 8:51 AM WAIST PLEATER COVID - 19 12/31/2022 12/31/2022 01/10/2023 12:1 8 AM CDT COVID - 19 Confirmed 12/31/2022 12/31/2022 023 12:17 AM CDT COVID - 19 06/01/2023 06/01/2023 06/01/2023 8:16 AM CDT COVID - 19 11/01/2023 11/01/2023 11/11/2023 12:1 6 AM WAIST PLEATER COVID - 19 06/25/2024 06/25/2024 06/25/2024 6:36 PM CDT Assessment Noted Time PHQ-9 Depression Total Score: 0 11/22/19 18 10:00 AM WAIST PLEATER documented as of this encounter Care Teams Forming Fixer Relationship Specialty Start Date End Date Marco Woods MD #2 [place] [facility] [address] [place] [address] PCP - General Family Medicine 11/22/17 Kirsten Niño MD #2 [place] [facility] [address] [place] [address] Consulting Physician Endocrinology 07/17/22 Chin Burrows MD #2 [facility] [address] [place] [address] Consulting Physician General Surgery 11/22/22 Kelsea Root, RN [place] Miter Grinder Operator 06/15/23 08/26/23 Michelle Mendes APRN, BUSGIRL #2 [facility] [address] [place] [address] Nurse Practitioner Advanced Practice Nurse 08/14/22 Chantelle Nix APRN, BUSGIRL #2 [place] [address] Nurse Practitioner Advanced Practice Nurse 02/19/24 Analia Meza MD #[address] [address] Consulting Physician Otolaryngology 05/11/25 documented as of this encounter
--- OUTSIDE RECORDS SUMMARY | 2025-05-28 08:50 | XMS_ITS | Encounter Summary ---
Author Organization [facility] Address [address] [place] [address] Phone Care Team Providers Care Security Sme Name Role Phone Marco Woods MD Primary Care Provider Kirsten Niño MD Unavailable Chin Burrows MD Unavailable Michelle Mendes APRN, SEXUAL ASSAULT SOCIAL WORKER Unavailable Chantelle Nix APRN, SEXUAL ASSAULT SOCIAL WORKER Unavailable Analia Meza MD Unavailable [phone] Reason for Visit * Reason Comments Medication Refill Encounter Details Date Type Department Care Team (Late st Contact Info) Description 03/11/2024 Refill [facility] - Family Medicine - [place] #[address] [place] [address] Marco Woods MD #2 [facility] [place] [address] Medication Refill Social History Tobacco Use Types Packs/Day Years Used Date Smoking Tobacco: Never Smokeless Tobacco: Never Alcohol Use Standard Drinks/Week Comments Not Currently 0 (1 standard drink = 0.6 oz pur e alcohol) [facility] Utilities Answer Date Recorded In the past 12 months has [employer] electric, gas, oil, or water company threatened [...] How often do you attend zoroastrianism or nondenominational serv ices? Patient declined 11/28/2023 Do you [...] Score - Questions 1-9 18 10/24 [facility] - Occupational Stress Questionnaire Answer [...] Sex Assigned at Female 11/22/2023 11:58 AM TEXTBOOK ASSOCIATE Legal Sex Female 11:34 PM CDT Gender Identity Female 11/22/2023 11:58 AM TEXTBOOK ASSOCIATE Sexual Orientation Not on file Occupation [...] Dept 02/21/24 Office Visit [facility] 02/12/24 Office Visit Rebecca Liu DRUM STOCK CLERK, [facility] [place] 12/05/23 Office Visit [facility] [place] 11/20/23 Office Visit Ronald Shaffer APRN, SEXUAL ASSAULT SOCIAL WORKER [facility] 10/10/23 Office Visit Rebecac Liu APRN, [facility] 08/24/23 Office Visit Ranjit Linder MD [facility] 08/02/23 Office Visit Marco Woods MD [facility] 05/01/23 Office Visit Marco [facility] MD [facility] 04/18/23 Office Visit Marco Woods MD [facility] 04/03/23 Office Visit [facility] Show[facility] recent visits within past 365 days and meeting all other requirements Future Appointments Date Type Provider Dept 03/12/24 Appointment [facility] MD [facility] Showing future appointments within next 90 days and meeting all other requirements documented in this encounter Plan of Treatment Upcoming Encounters Date Type Department Care Team (Late st Contact Info) Description 06/12/2025 11:00 AM CDT Office Visit [facility] - Family Medicine - [place] #2 [place] [address] Marco Woods MD #[address] [address] 07/01/2025 11:00 AM CDT Office Visit [facility] - Ear, Nose & Throat - [place] #2 [place] [address] Analia Meza MD #[address] [address] 07/03/2025 5:30 PM CD[facility] [address] [place] [address] Analia Meza MD #[address] [phone] Discharge Disposition: Discharged to home or Selfcare 07/17/2025 10:30 AM CDT Office Visit [facility] - Pulmonology & Sleep Medicine [facility] #2 [place] [address] Michelle Mendes APRN, SEXUAL ASSAULT SOCIAL WORKER #2 [facility] [address] [place] [address] 08/11/2025 9:45 AM CDT Office Visit [facility] Medical [facility] - Endocrinology - [place] #2 [place] [address] Kirsten Niño MD #[address] [phone] documented as of this encounter Visit Diagnoses Not on filedocumented in this encounter Additional Health Concerns Infection Onset Date Last Indicated Resolved Time COVID - 19 06/25/2024 06/25/2024 06/25/2024 6:36 PM CDT Assessment Noted Time PHQ-9 Depression Total Score: 18 024 10:00 AM TEXTBOOK ASSOCIATE documented as of this encounter Care Teams Security Sme Relationship Specialty Start Date End Date Marco Woods MD #2 [facility] [address] [place] [address] PCP - General Family Medicine 11/22/17 Kirsten Niño MD #2 [facility] [address] [place] [address] Consulting Physician Endocrinology 07/17/22 Chin Burrows MD #[address] [phone] Consulting Physician General Surgery 11/22/22 Michelle Mendes APRN, SEXUAL ASSAULT SOCIAL WORKER #[address] [address] Nurse Practitioner Advanced Practice Nurse 08/14/22 Chantelle Nix APRN, SEXUAL ASSAULT SOCIAL WORKER #2 [place] [address] Nurse Practitioner Advanced Practice Nurse 02/19/24 Analia Meza MD #[address] [phone] Consulting Physician Otolaryngology 05/11/25 documented as of this encounter
--- OUTSIDE RECORDS SUMMARY | 2025-05-28 08:50 | XMS_ITS | Encounter Summary ---
Author Organization [facility] Address [address] [place] [address] Phone Care Team Providers Care Instruction Dean Name Role Phone Marco Woods MD Primary Care Provider Kirsten Niño MD Unavailable Chin Burrows MD Unavailable Michelle Mendes APRN, RECREATIONAL ASSISTANT Unavailable Chantelle Nix APRN, RECREATIONAL ASSISTANT Unavailable Analia Meza MD Unavailable [phone] Reason for Visit * Reason Onset Date Comments Medication Management 05/26/2025 Encounter Details Date Type Department Care Team (Late st Contact Info) Description 05/26/2025 [facility]phone [facility] - Endocrinology - [place] #[address] [place] [address] Kirsten Niño MD #[address] [address] Medication Management Social History Tobacco Use Types Packs/Day Years Used Date Smoking Tobacco: Never Smokeless Tobacco: Never Alcohol Use Standard Drinks/Week Comments Not Currently 0 (1 standard drink = 0.6 oz pur e alcohol) [facility] Utilities Answer Date Recorded In the past 12 months has [employer], gas, oil, or water company threatened to [...] declined 06/25/2024 How often do you attend sabianist or roman catholic serv ices? Patient declined 06/25/2024 Do you [...] Total Score - Questions 1-9 18 10/24 [facility] - Occupational Stress Questionnaire Answer Date [...] any time in the past 12 m [facility], were you homeless or living [...] Sex Assigned at Female 11/22/2023 11:58 AM TRANSPORT PILOT Legal Sex Female 11:34 PM CDT Gender Identity Female 11/22/2023 11:58 AM TRANSPORT PILOT Sexual Orientation Not on file Occupation Industry Job Start Date Job End Date disabled Not on file Not on file Not on file documented as of this encounter Miscellaneous Notes * Telephone Encounter - Daria Whitley RMA - 05/27/2025 9:06 AM CDT Patient verbalized understanding. * Telephone Encounter - Kirsten Niño MD - 05/26/2025 4:05 PM CDT PLAN: Take vitamin D 1,000 units daily Discuss it further at the next visit * Telephone Encounter - Kirsten Niño MD - 05/26/2025 1:51 PM CDT Vitamin D3 1,000 units daily * Telephone Encounter - Dione Rivera CMA - 05/26/2025 1:18 PM CDT Pt wants to know how much vitamin D she needs to take. documented in this encounter Plan of Treatment Upcoming Encounters Date Type Department Care Team (Late st Contact Info) Description 06/12/2025 11:00 AM CDT [facility] - Family Medicine - [place] #2 [place] [address] Marco Woods MD #[address] [address] 07/01/2025 11:00 AM CDT Office Visit [facility] Medical [facility] - Ear, Nose & Throat - [place] #2 [place] [address] Analia Meza MD #[address] [phone] 07/03/2025 5:30 PM CD[facility] [address] [place] [phone] Analia Meza MD #2 [facility] [address] [place] [address] Discharge Disposition: Discharged to home or Selfcare 07/17/2025 10:30 AM CDT [facility] - Pulmonology & Sleep Medicine - [place] #2 [facility] [address] Michelle Mendes APRN, RECREATIONAL ASSISTANT #2 [facility] [address] [place] [address] 08/11/2025 9:45 AM CDT Office Visit [facility] Endocrinology - [place] #2 [place] [address] Kirsten Niño MD #[address] [place] [address] documented as of this encounter Visit Diagnoses Not on filedocumented in this encounter Additional Health Concerns Assessment Noted Time PHQ-9 Depression Total Score: 18 024 10:00 AM TRANSPORT PILOT documented as of this encounter Care Teams Instruction Dean Relationship Specialty Start Date End Date Marco Woods MD #2 [facility] [address] [place] [address] PCP - General Family Medicine 11/22/17 Kirsten Niño MD #2 [facility] [address] [place] [address] Consulting Physician Endocrinology 07/17/22 Chin Burrows MD #2 [facility] [address] [place] [address] Consulting Physician General Surgery 11/22/22 Michelle Mendes APRN, DREW #2 [facility] [address] [place] [address] Nurse Practitioner Advanced Practice Nurse 08/14/22 Chantelle Nix APRN, DREW #2 [place] [address] Nurse Practitioner Advanced Practice Nurse 02/19/24 Analia Meza MD #[address] [phone] Consulting Physician Otolaryngology 05/11/25 documented as of this encounter
--- OUTSIDE RECORDS SUMMARY | 2025-05-28 08:50 | XMS_ITS | Encounter Summary ---
Author Organization [facility] Address [address] [place] [address] Phone Care Team Providers Care Section Crews Activities Clerk Name Role Phone Marco Woods MD Primary Care Provider Kirsten Niño MD Unavailable Chin Burrows MD Unavailable Kelsea Root RN Unavailable Unavailable Michelle Mendes APRN, SCANNING TECH Unavailable Chantelle Nix APRN, SCANNING TECH Unavailable Analia Meza MD Unavailable [phone] Reason for Visit * Reason Onset Date Comments Medication Management 11/26/2022 Would like pain medication Encounter Details Date Type Department Care Team (Late st Contact Info) Description 11/26/2022 [facility] [address] [place] [address] Marco Woods MD #2 [facility] [place] [address] Medication Management (Would like pain medication) Social History Tobacco Use Types Packs/Day Years Used Date Smoking Tobacco: Never Smokeless Tobacco: Never Alcohol Use Standard Drinks/Week Comments Not Currently 0 (1 standard drink = 0.6 oz pur e alcohol) Sexually Active Control Partners Comments Not Currently Comments No Sex and Gender Information Value Date Recorded Sex Assigned at Female 11/22/2023 11:58 AM CARDIOLOGY PHYSICIAN Legal Sex Female 11:34 PM CDT Gender Identity Female 11/22/2023 11:58 AM CARDIOLOGY PHYSICIAN Sexual Orientation Not on file Occupation Industry Job Start Date Job End Date disabled Not on file Not on file Not on file COVID-19 Exposure Response Date Recorded In the last 10 days, have yo u been in contact with someone who was confirmed or suspected to have Coronavirus/COVID-19? No / Unsure 11/29/2022 3:20 PM CARDIOLOGY PHYSICIAN documented as of this encounter Miscellaneous Notes [...] before nurse could obtain any further information. IOLOGY PHYSICIAN documented in this encounter Plan of Treatment Upcoming Encounters Date Type Department Care Team (Late st Contact Info) Description 06/12/2025 11:00 AM CDT [facility] Visit [facility] Family [facility] #2 [place] [address] Marco Woods MD #[address] [address] 07/01/2025 11:00 AM CDT Office Visit [facility] - Ear, Nose & Throat [facility] #2 [place] [address] Analia Meza MD #[address] [address] 07/03/2025 5:30 PM CD[facility] [address] [place] [address] Analia Meza MD #2 [facility] [address] [place] [address] Discharge Disposition: Discharged to home or Selfcare 07/17/2025 10:30 AM CDT [facility] - Pulmonology & Sleep Medicine [facility] #2 [place] [address] Michelle Mendes, REPAIR TECH, SCANNING TECH #2 [facility] [address] [place] [address] 08/11/2025 9:45 AM CDT Office Visit [facility] - Endocrinology - [place] #2 [place] [address] Kirsten Niño MD #[address] [address] documented as of this encounter Visit Diagnoses Not on filedocumented in this encounter Additional Health Concerns Infection Onset Date Last Indicated Resolved Time COVID - 19 12/31/2022 12/31/2022 01/10/2023 12:1 8 AM CDT COVID - 19 Confirmed 12/31/2022 12/31/2022 023 12:17 AM CDT COVID - 19 06/01/2023 06/01/2023 06/01/2023 8:16 AM CDT COVID - 19 11/01/2023 11/01/2023 11/11/2023 12:1 6 AM CARDIOLOGY PHYSICIAN COVID - 19 06/25/2024 06/25/2024 06/25/2024 6:36 PM CDT Assessment Noted Time PHQ-9 Depression Total Score: 0 11/22/19 18 10:00 AM CARDIOLOGY PHYSICIAN documented as of this encounter Care Teams Section Crews Activities Clerk Relationship Specialty Start Date End Date Marco Woods MD #[address] [facility] [address] [address] PCP - General Family Medicine 11/22/17 Kirsten Niño MD #[address] [address] Consulting Physician Endocrinology 07/17/22 Chin Burrows MD [facility] [facility] [address] Consulting Physician General Surgery 11/22/22 Kelsea Root RN [place] Anesthesiology Physician Assistant 06/15/23 08/26/23 Michelle Mendes APRN, SCANNING TECH #[address] [address] Nurse Practitioner Advanced Practice Nurse 08/14/22 Chantelle Nix APRN, SCANNING TECH #2 [place] [address] Nurse Practitioner Advanced Practice Nurse 02/19/24 Analia Meza MD #2 [facility] [address] [address] Consulting Physician Otolaryngology 05/11/25 documented as of this encounter
--- OUTSIDE RECORDS SUMMARY | 2025-05-28 08:50 | XMS_ITS | Encounter Summary ---
Author Organization [facility] Address [address] [place] [address] Phone Care Team Providers Care Body Shop Floorperson Name Role Phone Marco Woods MD Primary Care Provider Kirsten Niño MD Unavailable Chin Burrows MD Unavailable [phone] Kelsea Root RN Unavailable Unavailable Michelle Mendes APRN, SECURITIES CONSULTANT Unavailable [phone] Chantelle Nix APRN, SECURITIES CONSULTANT Unavailable Analia Meza MD Unavailable [phone] Reason for Visit * Reason Comments Medication Refill Encounter Details Date Type Department Care Team (Late st Contact Info) Description 12/26/2020 Refill [facility] [address] [place] [address] Mirtha Steiner APRN, SECURITIES CONSULTANT #2 [facility] [place] [address] Medication Refill Social History Tobacco Use Types Packs/Day Years Used Date Smoking Tobacco: Never Smokeless Tobacco: Former Alcohol Use Standard Drinks/Week Comments Not Currently 0 (1 standard drink = 0.6 oz pur e alcohol) Sexually Active Control Partners Comments Not Currently Comments No Sex and Gender Information Value Date Recorded Sex Assigned at Female 11/22/2023 11:58 AM PIGSKIN TRIMMER Legal Sex Female 11:34 PM CDT Gender Identity Female 11/22/2023 11:58 AM PIGSKIN TRIMMER Sexual Orientation Not on file Occupation Industry Job Start Date Job End Date disabled Not on file Not on file Not on file COVID-19 Exposure Response Date Recorded In the last month, have you been in contact with someone who was confirmed or suspected to have Coronavirus / COVID-19? No / Unsure 12/27/2020 8:52 AM PIGSKIN TRIMMER documented as of this encounter Miscellaneous Notes [...] Receipt confirmed by pharmacy (11/16/2020 10:27 AM PIGSKIN TRIMMER) amLODIPine (NORVASC) 5 MG Tablet [[id number]] 26 Status: Active Ordering user: Marco Woods MD 11/16/201026 Authorized by: Marco Woods MD Frequency: Daily 11/16/20 - Until Discontinued Released by: Marco Woods MD 11/16/20 1027 Pharmacy [id number] [facility] KIN TRIMMER documented in this encounter Plan of Treatment Upcoming Encounters Date Type Department Care Team (Late st Contact Info) Description 06/12/2025 11:00 AM CDT [facility] Medicine - [place] #[address] [place] [address] Marco Woods MD #[address] [address] 07/01/2025 11:00 AM CDT Office Visit [facility] - [facility], Nose & Throat - [place] #2 [facility] [place] [address] Analia Meza MD #[address] [address] 07/03/2025 5:30 PM CDT [facility] [address] [place] [address] Analia Meza MD #[address] [phone] Discharge Disposition: Discharged to home or Selfcare 07/17/2025 10:30 AM CDT [facility] [place] #2 [place] [address] Michelle Mendes APRN, DREW #[address] [address] 08/11/2025 9:45 AM CDT Office Visit [facility] - Endocrinology - [place] #[address] [place] [address] Kirsten Niño MD #[address] [address] documented as of this encounter Visit Diagnoses Not on filedocumented in this encounter Additional Health Concerns Infection Onset Date Last Indicated Resolved Time COVID - 19 06/29/2022 06/29/2022 07/09/2022 12:1 6 AM CDT COVID - 19 11/20/2022 11/20/2022 11/24/2022 8:51 AM PIGSKIN TRIMMER COVID - 19 12/31/2022 12/31/2022 01/10/2023 12:1 8 AM CDT COVID - 19 Confirmed 12/31/2022 12/31/2022 023 12:17 AM CDT COVID - 19 06/01/2023 06/01/2023 06/01/2023 8:16 AM CDT COVID - 19 11/01/2023 11/01/2023 11/11/2023 12:1 6 AM PIGSKIN TRIMMER COVID - 19 06/25/2024 06/25/2024 06/25/2024 6:36 PM CDT Assessment Noted Time PHQ-9 Depression Total Score: 0 11/22/19 10:00 AM PIGSKIN TRIMMER documented as of this encounter Care Teams Body Shop Floorperson Relationship Specialty Start Date End Date Marco Woods MD #2 [facility] [address] [place] [address] PCP - General Family Medicine 11/22/17 Kirsten Niño MD #2 [facility] [address] [place] [address] Consulting Physician Endocrinology 07/17/22 Chin Burrows MD #2 [facility] [address] [place] [address] Consulting Physician General Surgery 11/22/22 Kelsea Root RN [place] Angle Shear Operator 06/15/23 08/26/23 Michelle Mendes APRN, SECURITIES CONSULTANT #2 [facility] [address] [place] [address] Nurse Practitioner Advanced Practice Nurse 08/14/22 Chantelle Nix APRN, SECURITIES CONSULTANT #2 [place] [address] Nurse Practitioner Advanced Practice Nurse 02/19/24 Analia Meza MD #[address] [facility] [address] [phone] Consulting Physician Otolaryngology 05/11/25 documented as of this encounter
--- OUTSIDE RECORDS SUMMARY | 2025-05-28 08:50 | XMS_ITS | Encounter Summary ---
Author Organization [facility] Address [address] [place] [address] Phone Care Team Providers Care Skirt Trimmer Name Role Phone Marco Woods MD Primary Care Provider Kirsten Niño MD Unavailable Chin Burrows MD Unavailable [phone] Michelle Mendes MANUSCRIPTS ARCHIVIST, BUSINESS ACCOUNT SPECIALIST Unavailable Chantelle Nix MANUSCRIPTS ARCHIVIST, BUSINESS ACCOUNT SPECIALIST Unavailable Analia Meza MD Unavailable [phone] Reason for Visit * Reason Onset Date Comments Medication Management 05/26/2025 Follow-up 05/26/2025 Encounter Details Date Type Department Care Team (Late st Contact Info) Description 05/26/2025 Telephone [facility] [address] [place] [address] Marco Woods MD #2 [facility] [place] [place] [address] Medication Management; Follow-up Social History Tobacco Use Types Packs/Day Years Used Date Smoking Tobacco: Never Smokeless Tobacco: Never Alcohol Use Standard Drinks/Week Comments Not Currently 0 (1 standard drink = 0.6 oz pur e alcohol) [facility] Utilities Answer Date Recorded In the past 12 months has [employer], [employer], or [employer] threatened to shut off services in your home? Patient unable to answer 06/25/2024 Social Connection and Isolation Panel Answer Date Recorded In a typical week, how many times do you talk on the phone with family, friends, or neighbors? Patient declined 06/25/2024 How often do you get togethe r with friends or relatives? Patient declined 06/25/2024 How often do you attend bahai or alevism serv ices? Patient declined 06/25/2024 Do you [...] 18 10/24 [facility] - Occupational Stress Questionnaire Answer Date [...] any time in the past 12 m [facility], were you homeless or living in a longterm (including now)? Patient unable to answer 06/25/2024 Education Answer Date Recorded What is the highest level of school you have completed or the highest degree you have received? 12th grade 04/03/2023 Sexually Active Control Partners Comments Not Currently Comments No Sex and Gender Information Value Date Recorded Sex Assigned at Female 11/22/2023 11:58 AM CAMPAIGN DEVELOPER Legal Sex Female 11:34 PM CDT Gender Identity Female 11/22/2023 11:58 AM CAMPAIGN DEVELOPER Sexual Orientation Not on file Occupation Industry Job Start Date Job End Date disabled Not on file Not on file Not on file documented as of this encounter Miscellaneous Notes * Telephone Encounter - Gladys Figueroa RN - 05/26/2025 5:52 AM CDT Situation: Medication Management Background: Patient contacting PCP office. Patient states that her hip went out on Sunday 3 days ago and has been in a lot of pain. Patient states that she couldn't lift leg or put socks on that her daughter had to come help her. States the antibiotic she is taking for the sinuses is helping and is not having any yeast infection symptoms. Assessment: Patient states that the hip pain is improving and getting better. Has had to take a few extra Tramadol and wanted provider to be aware just in case she runs out sooner. Has been taking 2 or 3 every 6hours and Extra Strength Tylenol but states that she is back on schedule today with the Tramadol. Recommendation: Declined OV at this time but states she will call back if hip goes out again. documented in this encounter Plan of Treatment Upcoming Encounters Date Type Department Care Team (Late st Contact Info) Description 06/12/2025 11:00 AM CDT Office [facility] - Family Medicine [facility] #[address] [place] [address] Marco Woods MD #[address] [address] 07/01/2025 11:00 AM CDT Office Visit [facility] - Ear, Nose & Throat [facility] #2 [place] [address] Analia Meza MD #[address] [address] 07/03/2025 5:30 PM CD[facility] [address] [place] [address] Analia Meza MD #[address] [address] Discharge Disposition: Discharged to home or Selfcare 07/17/2025 10:30 AM CDT [facility] [place] #2 [place] [address] Michelle Mendes APRN, BUSINESS ACCOUNT SPECIALIST #2 [facility] [address] [place] [address] 08/11/2025 9:45 AM CDT [facility] - Endocrinology - [place] #2 [place] [address] Kirsten Niño MD #[address] [address] documented as of this encounter Visit Diagnoses Not on filedocumented in this encounter Additional Health Concerns Assessment Noted Time PHQ-9 Depression Total Score: 18 024 10:00 AM CAMPAIGN DEVELOPER documented as of this encounter Care Teams Skirt Trimmer Relationship Specialty Start Date End Date Marco Woods MD #2 [facility] [address] [place] [address] PCP - General Family Medicine 11/22/17 Kirsten Niño MD #[address] [address] Consulting Physician Endocrinology 07/17/22 Chin Burrows MD #[address] [address] Consulting Physician General Surgery 11/22/22 Michelle Mendes APRN, DREW #2 [facility] [address] [place] [address] Nurse Practitioner Advanced Practice Nurse 08/14/22 Chantelle Nix APRN, CNP #[address] [place] [address] Nurse Practitioner Advanced Practice Nurse 02/19/24 Analia Meza MD #[address] [place] [facility] [address] [address] Consulting Physician Otolaryngology 05/11/25 documented as of this encounter
--- OUTSIDE RECORDS SUMMARY | 2025-05-28 08:50 | XMS_ITS | Encounter Summary ---
Author Organization [facility] Address [address] [place] [address] Phone Care Team Providers Care Longshore Equipment Operator Name Role Phone Marco Woods MD Primary Care Provider Kirsten Niño MD Unavailable Chin Burrows MD Unavailable Kelsea Root RN Unavailable Unavailable Michelle Mendes APRN, MANAGER UTILITIES Unavailable Chantelle Nix APRN, MANAGER UTILITIES Unavailable Analia Meza MD Unavailable [phone] Reason for Visit * Reason Comments Medication Refill Encounter Details Date Type Department Care Team (Late st Contact Info) Description 09/22/2022 [facility]ill [facility] #[address] [place] [address] Marco Woods MD [address] [address] [address] Medication Refill Social History Tobacco Use Types Packs/Day Years Used Date Smoking Tobacco: Never Smokeless Tobacco: Former Alcohol Use Standard Drinks/Week Comments Not Currently 0 (1 standard drink = 0.6 oz pur e alcohol) Sexually Active Control Partners Comments Not Currently Comments No Sex and Gender Information Value Date Recorded Sex Assigned at Female 11/22/2023 11:58 AM SOFTWARE ENGINEERING ASSOCIATE MANAGER Legal Sex Female 11:34 PM CDT Gender Identity Female 11/22/2023 11:58 AM SOFTWARE ENGINEERING ASSOCIATE MANAGER Sexual Orientation Not on file Occupation Industry Job Start Date Job End Date disabled Not on file Not on file Not on file COVID-19 Exposure Response Date Recorded In the last 10 days, have yo u been in contact with someone who was confirmed or suspected to have Coronavirus/COVID-19? No / Unsure 09/16/2022 6:11 AM SOFTWARE ENGINEERING ASSOCIATE MANAGER documented as of this encounter Miscellaneous [...] Dept 08/29/22 Office Visit Ronald Shaffer APRN, MANAGER UTILITIES [facility] 07/12/22 Office Visit Jany Hernandez, [facility] 06/23/22 Office Visit Marco Woods MD [facility] [place] 05/19/22 [facility] [place] 01/10/22 Office Visit Marco Woods MD [facility] [place] 10/04/21 Office Visit [facility] recent visits within past 365 days and meeting all other requirements Future Appointments Date Type Provider Dept 10/25/22 Appointment [facility] Show[facility] future appointments within next 90 [...] Provider Dept 08/29/22 Office Visit Ronald Shaffer, RADIOLOGY SUPERVISOR, MANAGER UTILITIES [facility] 07/12/22 Office [facility] Jany Hernandez, [facility] 06/23/22 [facility] [place] 05/19/22 [facility] Visit [facility] [place] 01/10/22 Office Visit Marco Woods MD [facility] Showing recent visits within past 270 days and meeting all other requirements Future Appointments Date Type Provider Dept 10/25/22 Appointment [facility] Show[facility] future appointments within next 90 days and meeting all other requirements Passed - Blood pressure on record in past 12 months Clinician-entered: BP Readings from Last 3 Encounters: 09/12/22 140/84 08/29/22 134/70 08/28/22 118/78 Patient-entered: No data recorded WARE ENGINEERING ASSOCIATE MANAGER documented in this encounter Plan of Treatment Upcoming Encounters Date Type Department Care Team (Late st Contact Info) Description 06/12/2025 11:00 AM CDT Office Visit [facility] Medical [facility] - Family Medicine - [place] #2 [place] [address] Marco Woods MD #[address] [address] 07/01/2025 11:00 AM CDT Office Visit [facility] Medical [facility] - Ear, Nose & Throat - [place] #2 [place] [address] Analia Meza MD #[address] [address] 07/03/2025 5:30 PM CDT Appointment [facility] [address] [place] [address] Analia Meza MD #[address] [address] Discharge Disposition: Discharged to home or Selfcare 07/17/2025 10:30 AM CDT [facility] - Pulmonology & Sleep Medicine - [place] #[address] [place] [address] Michelle Mendes APRN, MANAGER UTILITIES #2 [facility] [address] [place] [address] 08/11/2025 9:45 AM CDT [facility] - Endocr[facility]ology - [place] #2 [place] [address] Kirsten Niño MD #2 [facility] [address] [place] [address] documented as of this encounter Visit Diagnoses Diagnosis Organic periodic limb movement sleep disorder documented in this encounter Additional Health Concerns Infection Onset Date Last Indicated Resolved Time COVID - 19 11/20/2022 11/20/2022 11/24/2022 8:51 AM SOFTWARE ENGINEERING ASSOCIATE MANAGER COVID - 19 12/31/2022 12/31/2022 01/10/2023 12:1 8 AM CDT COVID - 19 Confirmed 12/31/2022 12/31/2022 023 12:17 AM CDT COVID - 19 06/01/2023 06/01/2023 06/01/2023 8:16 AM CDT COVID - 19 11/01/2023 11/01/2023 11/11/2023 12:1 6 AM SOFTWARE ENGINEERING ASSOCIATE MANAGER COVID - 19 06/25/2024 06/25/2024 06/25/2024 6:36 PM CDT Assessment Noted Time PHQ-9 Depression Total Score: 0 11/22/19 18 10:00 AM SOFTWARE ENGINEERING ASSOCIATE MANAGER documented as of this encounter Care Teams Longshore Equipment Operator Relationship Specialty Start Date End Date Marco Woods MD #2 [facility] [address] [place] [address] PCP - General Family Medicine 11/22/17 Kirsten Niño MD #[address] [address] Consulting Physician Endocrinology 07/17/22 Chin Burrows MD #[address] [address] Consulting Physician General Surgery 11/22/22 Kelsea Root RN [place] School Curriculum Developer 06/15/23 08/26/23 Michelle Mendes APRN, MANAGER UTILITIES #[address] [address] Nurse Practitioner Advanced Practice Nurse 08/14/22 Chantelle Nix APRN, MANAGER UTILITIES #2 [place] [address] Nurse Practitioner Advanced Practice Nurse 02/19/24 Analia Meza MD #[address] [address] Consulting Physician Otolaryngology 05/11/25 documented as of this encounter
--- OUTSIDE RECORDS SUMMARY | 2025-05-28 08:50 | XMS_ITS | Encounter Summary ---
Author Organization [facility] Address [address] [place] [address] Phone Care Team Providers Care Box Stacker Name Role Phone Marco Woods MD Primary Care Provider Kirsten Niño MD Unavailable Chin Burrows MD Unavailable [phone] Kelsea Root RN Unavailable Unavailable Michelle Mendes APRN, SEAT NAILER Unavailable Chantelle Nix APRN, SEAT NAILER Unavailable Analia Meza MD Unavailable [phone] Reason for Visit * Reason Comments Medication Refill Encounter Details Date Type Department Care Team (Late st Contact Info) Description 08/06/2021 Refill [facility] [address] [place] [address] Marco Woods MD #2 [facility] [place], [place] [id number] Medication Refill Social History Tobacco Use Types Packs/Day Years Used Date Smoking Tobacco: Never Smokeless Tobacco: Former Alcohol Use Standard Drinks/Week Comments Not Currently 0 (1 standard drink = 0.6 oz pur e alcohol) Sexually Active Control Partners Comments Not Currently Comments No Sex and Gender Information Value Date Recorded Sex Assigned at Female 11/22/2023 11:58 AM LANDCARE FACILITATOR Legal Sex Female 11:34 PM CDT Gender Identity Female 11/22/2023 11:58 AM LANDCARE FACILITATOR Sexual Orientation Not on file Occupation Industry [...] [facility] [place] 12/21/20 Telemedicine Mirtha Steiner APN, SEAT NAILER [facility] [place] 11/09/20 Office Visit Marco Woods MD [facility] 09/06/20 Office Visit Marco Woods MD [facility] [place] Showing recent visits within past 365 days and meeting all other requirements Future Appointments Date Type Provider Dept 09/28/21 Appointment Marco Woods MD [facility] Showing future appointments within next 90 days and meeting all other requirements documented in this encounter Plan of Treatment Upcoming Encounters Date Type Department Care Team (Late st Contact Info) Description 06/12/2025 11:00 AM CDT Office Visit [facility] - Family Medicine - [place] #2 [place] [address] Marco Woods MD #2 [facility] [address] [place] [address] 07/01/2025 11:00 AM CDT Office Visit [facility] Medical [facility] - Ear, Nose & Throat - [place] #2 [place] [address] Analia Meza MD #2 [facility] [address] [place] [address] 07/03/2025 5:30 PM CD[facility] [place] [address] Analia Meza MD #2 [facility] [address] [place] [address] Discharge Disposition: Discharged to home or Selfcare 07/17/2025 10:30 AM CDT [facility] - Pulmonology & Sleep Medicine - [place] #2 [place] [address] Michelle Mendes APRN, SEAT NAILER #2 [facility] [address] [place] [address] 08/11/2025 9:45 AM CDT Office Visit [facility] - Endocrinology - [place] #2 [facility] [place] [facility] [place] [address] Kirsten Niño MD #2 [facility] [address] [place] [address] documented as of this encounter Visit Diagnoses Not on filedocumented in this encounter Additional Health Concerns Infection Onset Date Last Indicated Resolved Time COVID - 19 06/29/2022 06/29/2022 07/09/2022 12:1 6 AM CDT COVID - 19 11/20/2022 11/20/2022 11/24/2022 8:51 AM LANDCARE FACILITATOR COVID - 19 12/31/2022 12/31/2022 01/10/2023 12:1 8 AM CDT COVID - 19 Confirmed 12/31/2022 12/31/2022 023 12:17 AM CDT COVID - 19 06/01/2023 06/01/2023 06/01/2023 8:16 AM CDT COVID - 19 11/01/2023 11/01/2023 11/11/2023 12:1 6 AM LANDCARE FACILITATOR COVID - 19 06/25/2024 06/25/2024 06/25/2024 6:36 PM CDT Assessment Noted Time PHQ-9 Depression Total Score: 0 11/22/19 18 10:00 AM LANDCARE FACILITATOR documented as of this encounter Care Teams Box Stacker Relationship Specialty Start Date End Date Marco Woods MD #2 [facility] [address] [place] [address] PCP - General Family Medicine 11/22/17 Kirsten Niño MD #[address] [address] [address] Consulting Physician Endocrinology 07/17/22 Chin Burrows MD #[address] [address] Consulting Physician General Surgery 11/22/22 Kelsea Root RN [place] Tower Operator 06/15/23 08/26/23 Michelle Mendes APRN, SEAT NAILER #2 [facility] [address] [place] [address] Nurse Practitioner Advanced Practice Nurse 08/14/22 Chantelle Nix APRN, SEAT NAILER #2 [place] [address] Nurse Practitioner Advanced Practice Nurse 02/19/24 Analia Meza MD #2 [facility] [address] [place] [address] Consulting Physician Otolaryngology 05/11/25 documented as of this encounter
--- OUTSIDE RECORDS SUMMARY | 2025-05-28 08:50 | XMS_ITS | Encounter Summary ---
Author Organization [facility] Address [address] [place] [address] Phone Care Team Providers Care Associate Professor Of Media Arts Name Role Phone Marco Woods MD Primary Care Provider [phone] Kirsten Niño MD Unavailable Chin Burrows MD Unavailable Kelsea Root RN Unavailable Unavailable Michelle Mendes APRN, MEDICAL SUPERVISOR Unavailable [phone] Chantelle Nix APRN, MEDICAL SUPERVISOR Unavailable Analia Meza MD Unavailable [phone] Reason for Visit * Reason Comments Medication Refill Encounter Details Date Type Department Care Team (Late st Contact Info) Description 02/11/2023 [facility]ill [facility] #[address] [place] [address] Marco Woods MD #[address] [address] [address] Medication Refill Social History Tobacco Use Types Packs/Day Years Used Date Smoking Tobacco: Never Smokeless Tobacco: Never Alcohol Use Standard Drinks/Week Comments Not Currently 0 (1 standard drink = 0.6 oz pur e alcohol) Sexually Active Control Partners Comments Not Currently Comments No Sex and Gender Information Value Date Recorded Sex Assigned at Female 11/22/2023 11:58 AM HEATING UNIT INSTALLER Legal Sex Female 11:34 PM CDT Gender Identity Female 11/22/2023 11:58 AM HEATING UNIT INSTALLER Sexual Orientation Not on file Occupation [...] [place] 01/23/23 Office Visit Rebecca Liu APRN, MEDICAL SUPERVISOR [facility] [place] 12/05/22 Office Visit Marco Woods MD [facility] [place] 10/25/22 Office Visit Marco Woods MD [facility] [place] 08/29/22 Office Visit Ronald Shaffer APRN, MEDICAL SUPERVISOR [facility] [place] 07/12/22 Office Visit Jany Hernandez PAC [facility] [place] 06/23/22 Office Visit Marco Woods MD [facility] [place] 05/19/22 Office Visit Marco Woods MD [facility] [place] Showing recent visits within past 365 days and meeting all other requirements Future Appointments Date Type Provider Dept 04/26/23 Appointment Marco [facility] MD [facility] [place] Showing future appointments within next 90 days and meeting all other requirements documented in this encounter Plan of Treatment Upcoming Encounters Date Type Department Care Team (Late st Contact Info) Description 06/12/2025 11:00 AM CDT Office Visit [facility] - Family Medicine - [place] #2 [place] [address] Marco Woods MD #2 [facility] [address] [place] [address] 07/01/2025 11:00 AM CDT Office Visit [facility] Medical [facility] - Ear, Nose & Throat - [place] #2 [place] [address] Analia Meza MD #[address] [address] 07/03/2025 5:30 PM CD[facility] [place] [address] Analia Meza MD #[address] [address] Discharge Disposition: Discharged to home or Selfcare 07/17/2025 10:30 AM CDT Office Visit [facility] Medical [facility] - Pulmonology & Sleep Medicine - [place] #[address] [place] [address] Michelle Mendes APRN, MEDICAL SUPERVISOR #2 [facility] [address] [place] [address] 08/11/2025 9:45 AM CDT Office Visit [facility] - Endocrinology - [place] #2 [place] [address] Kirsten Niño MD #[address] [place] [address] documented as of this encounter Visit Diagnoses Not on filedocumented in this encounter Additional Health Concerns Infection Onset Date Last Indicated Resolved Time COVID - 19 06/01/2023 06/01/2023 06/01/2023 8:16 AM CDT COVID - 11/01/2023 11/01/2023 11/11/2023 12:1 6 AM HEATING UNIT INSTALLER COVID - 06/25/2024 06/25/2024 06/25/2024 6:36 PM CDT Assessment Noted Time PHQ-9 Depression Total Score: 0 11/22/19 10:00 AM HEATING UNIT INSTALLER documented as of this encounter Care Teams Associate Professor Of Media Arts Relationship Specialty Start Date End Date Marco Woods MD #2 [facility] [address] [place] [address] PCP - General Family Medicine 11/22/17 Kirsten Niño MD #[address] [address] Consulting Physician Endocrinology 07/17/22 Chin Burrows MD #[address] [address] Consulting Physician General Surgery 11/22/22 Kelsea Root RN [place] Diver'S Tender 06/15/23 08/26/23 Michelle Mendes APRN, MEDICAL SUPERVISOR #2 [facility] [address] [place] [address] Nurse Practitioner Advanced Practice Nurse 08/14/22 Chantelle Nix APRN, MEDICAL SUPERVISOR #2 [place] [address] Nurse Practitioner Advanced Practice Nurse 02/19/24 Analia Meza MD #[address] [facility] [address] [address] Consulting Physician Otolaryngology 05/11/25 documented as of this encounter
--- OUTSIDE RECORDS SUMMARY | 2025-05-28 08:50 | XMS_ITS | Clinical Summary ---
Author Organization [facility] Building B Address [address] [place] [address] Care Team Providers Care Assistant Infant Toddler Teacher Name Role Phone Nikhil Robles MD Primary Care Provider [phone] Allergies Active Allergy Reactions Criticality Noted Date [...] Nasal saline spray (Simply saline, Little Remedies, [place], [place]) 2 second sprays or 2 squeezes into [...] Type Department Care Team Description 04/17/2025 Telephone [facility] Orthopedics and Sports Medicine [address] [place] [phone] Jamie Power MD 03/30/2025 Telephone [facility] Gastroenterology at [address] [place] [address] Mishel Hudson MA from Last 3 Months Surgical History Surgery Date Site/Laterality Comments TOTAL KNEE ARTHROPLASTY Bilateral ESOPHAGOGASTRODUODENOSCOPY COLONOSCOPY LAPAROSCOPIC CHOLECYSTECTOMY PARATHYROIDECTOMY CATARACT EXTRACTION W/ INTRAOCULAR LENS IMPLANT GASTROJEJUNOSTOMY Gastrectomy SPLENECTOMY Medical History Medical History Date Comments Obesity DJD (degenerative joint disease) COPD (chronic obstructive pulmonary disease) MDD (major depressive disorder) Bipolar 1 disorder [...] on file Legal Sex Female 6:03 PM NEON GLASS BLOWER Gender Identity Not on file Sexual Orientation Not on file Obstetrics History Last Filed Vital Signs Vital Sign Reading Time Taken Comments Blood Pressure 170/75 09/19/2023 10:51 AM NEON GLASS BLOWER Pulse 114 09/19/2023 2:00 PM NEON GLASS BLOWER Temperature 36.6 C (97.8 F) 09/19/2023 10:51 AM NEON GLASS BLOWER Respiratory Rate 18 09/19/2023 10:51 AM NEON GLASS BLOWER Oxygen Saturation 98% 09/19/2023 10:51 AM NEON GLASS BLOWER Inhaled Oxygen Concentration - - Weight 80.3 kg (177 lb) 09/18/2023 3:16 PM NEON GLASS BLOWER Height 157.5 cm (5' 2) 09/18/2023 3:16 PM NEON GLASS BLOWER Body Mass Index 32.37 09/18/2023 3:16 PM NEON GLASS BLOWER Plan of Treatment Health Maintenance Due Date [...] 022, 06/19/2021, 08/30/2017, Additional history exists Insurance [facility] MEDICARE ADVANTAGE [facility] MEDIC[facility] Address: [facility] [address] [address] [address] [place] [id number] [facility] MDCR HMO REF [facility] MEDICARE Address: [address] [address] [place] [address] [address] [place] [id number] [facility] MEDICARE ADVANTAGE [facility] MEDIC[facility] Address: [address] [address] [place] [address] Advance Directives For more information, please contact: [phone] * Full Code (Latest Code Status on File) Date Activated Date Inactivated Comments 09/18/2023 2:35 PM 09/19/2023 6:39 PM * Full Code Date Activated Date Inactivated Comments 09/18/2023 12:47 PM 09/18/2023 2:35 PM Care Teams Assistant Infant Toddler Teacher Relationship Specialty Start Date End Date Nikhil Robles MD [address] [place] [address] PCP - General Emergency Medicine 03/12/24
--- OUTSIDE RECORDS SUMMARY | 2025-05-28 08:50 | XMS_ITS | Encounter Summary ---
Author Organization [facility] Address [address] [place] [address] Phone Care Team Providers Care Video Games Storywriter Name Role Phone Marco Woods MD Primary Care Provider [phone] Kirsten Niño MD Unavailable Chin Burrows MD Unavailable Kelsea Root RN Unavailable Unavailable Michelle Mendes APRN, SENIOR MAINFRAME DEVELOPER Unavailable [phone] Chantelle Nix APRN, SENIOR MAINFRAME DEVELOPER Unavailable Analia Meza MD Unavailable [phone] Reason for Visit * Reason Comments Medication Refill Encounter Details Date Type Department Care Team (Late st Contact Info) Description 02/01/2023 [facility]ill [facility] - [facility] - [place] [address] [place] [id number] Deanna Leavitt Humera, PAC [address] [place] [address] Medication Refill Social History Tobacco Use Types Packs/Day Years Used Date Smoking Tobacco: Never Smokeless Tobacco: Never Alcohol Use Standard Drinks/Week Comments Not Currently 0 (1 standard drink = 0.6 oz pur e alcohol) Sexually Active Control Partners Comments Not Currently Comments No Sex and Gender Information Value Date Recorded Sex Assigned at Female 11/22/2023 11:58 AM CORRECTIONAL CAPTAIN Legal Sex Female 11:34 PM CDT Gender Identity Female 11/22/2023 11:58 AM CORRECTIONAL CAPTAIN Sexual Orientation Not on file Occupation Industry [...] Description 06/12/2025 11:00 AM CDT Office Visit [facility] - Family Medicine [facility] [address] [place] [address] Marco Woods MD [address] [address] 07/01/2025 11:00 AM CDT Office Visit [facility] Group - Ear, Nose & Throat - [place] [address] [place] [address] Analia Meza MD #[address] [address] 07/03/2025 5:30 PM CDT Appointment [facility] [address] [place] [address] Analia Meza MD #[address] [address] Discharge Disposition: Discharged to home or Selfcare 07/17/2025 10:30 AM CDT [facility] - Pulmonology & [facility] Medicine - [place] [address] [place] [address] Michelle Mendes APRN, SENIOR MAINFRAME DEVELOPER #[address] [address] 08/11/2025 9:45 AM CDT Office Visit [facility] - Endocrinology - [place] [address] [place] [address] Kirsten Niño MD #[address] [address] documented as of this encounter Visit Diagnoses Diagnosis Gastroesophageal reflux disease without esophagitis Esophageal reflux documented in this encounter Additional Health Concerns Infection Onset Date Last Indicated Resolved Time COVID - 19 06/01/2023 06/01/2023 06/01/2023 8:16 AM CDT COVID - 11/01/2023 11/01/2023 11/11/2023 12:1 6 AM CORRECTIONAL CAPTAIN COVID - 19 06/25/2024 06/25/2024 06/25/2024 6:36 PM CDT Assessment Noted Time PHQ-9 Depression Total Score: 0 11/22/19 18 10:00 AM CORRECTIONAL CAPTAIN documented as of this encounter Care Teams Video Games Storywriter Relationship Specialty Start Date End Date Marco Woods MD #2 [facility] [address] [place] [address] PCP - General Family Medicine 11/22/17 Kirsten Niño MD #2 [facility] [address] [place] [address] Consulting Physician Endocrinology 07/17/22 Chin Burrows MD #[address] [address] Consulting Physician General Surgery 11/22/22 Kelsea Root RN [place] Director Of Surgery 06/15/23 08/26/23 Michelle Mendes APRN, SENIOR MAINFRAME DEVELOPER #2 [facility] [address] [place] [address] Nurse Practitioner Advanced Practice Nurse 08/14/22 Chantelle Nix APRN, SENIOR MAINFRAME DEVELOPER #2 [place] [address] Nurse Practitioner Advanced Practice Nurse 02/19/24 Analia Meza MD #[address] [phone] Consulting Physician Otolaryngology 05/11/25 documented as of this encounter
--- OUTSIDE RECORDS SUMMARY | 2025-05-28 08:50 | XMS_ITS | Encounter Summary ---
Author Organization [facility] Address [address] [place] [address] Phone Care Team Providers Care Manager Of Financial Reporting Name Role Phone Marco Woods MD Primary Care Provider [phone] Kirsten Niño MD Unavailable Chin Burrows MD Unavailable Michelle Mendes APRN, BIG DATA LEAD Unavailable Chantelle Nix APRN, BIG DATA LEAD Unavailable Analia Meza MD Unavailable [phone] Reason for Visit * Reason Comments Medication Refill Encounter Details Date Type Department Care Team (Late st Contact Info) Description 10/03/2024 Refill [facility] - Gastroenterology - [place] #[address] [place] [address] Chantelle Nix APRN, BIG DATA LEAD [address] [place] [address] Medication Refill Social History Tobacco Use Types Packs/Day Years Used Date Smoking Tobacco: Never Smokeless Tobacco: Never Alcohol Use Standard Drinks/Week Comments Not Currently 0 (1 standard drink = 0.6 oz pur e alcohol) [facility] Utilities Answer Date Recorded In the past 12 months has [employer], gas, oil, or water company threatened to [...] declined 06/25/2024 How often do you attend zoroastrianism or buddhism serv ices? Patient declined 06/25/2024 Do you [...] Total Score - Questions 1-9 18 10/24 [facility] - Occupational Stress Questionnaire Answer [...] time in the past 12 m [facility], were you homeless or living in a snf (including now)? Patient unable to answer 06/25/2024 Education Answer Date Recorded What is the highest level of school you have completed or the highest degree you have received? 12th grade 04/03/2023 Sexually Active Control Partners Comments Not Currently Comments No Sex and Gender Information Value Date Recorded Sex Assigned at Female 11/22/2023 11:58 AM PM TECHNICIAN Legal Sex Female 11:34 PM CDT Gender Identity Female 11/22/2023 11:58 AM PM TECHNICIAN Sexual Orientation Not on file Occupation [...] Dept Phone 10/31/2024 11:15 AM Kirsten Niño [facility] - Endocrinology - [place] [phone] TECHNICIAN * Telephone Encounter - Denise Honeycutt RN - 10/06/2024 9:16 AM PM TECHNICIAN Medication refilled and signed per [facility] chronic medication standing order for pediatric and adult patients. TECHNICIAN documented in this encounter Plan of Treatment Upcoming Encounters Date Type Department Care Team (Late st Contact Info) Description 06/12/2025 11:00 AM CDT Office Visit [facility] - Family Medicine - [place] [address] [place] [address] Marco Woods MD [address] [address] 07/01/2025 11:00 AM CDT Office Visit [facility] - Ear, Nose & Throat - [place] #[address] [place] [address] Analia Meza MD #[address] [phone] 07/03/2025 5:30 PM CD[facility] [address] [place] [address] Analia Meza MD #[address] [place] [address] Discharge Disposition: Discharged to home or Selfcare 07/17/2025 10:30 AM CDT Office Visit [facility] - Pulmonology & Sleep Medicine [facility] #[address] [place] [address] Michelle Mendes APRN, BIG DATA LEAD #[address] [address] 08/11/2025 9:45 AM CDT Office Visit [facility] Medical Group - Endocrinology - [place] #[address] [place] [address] Kirsten Niño MD #[address] [address] documented as of this encounter Visit Diagnoses Diagnosis Chronic constipation Unspecified constipation documented in this encounter Additional Health Concerns Assessment Noted Time PHQ-9 Depression Total Score: 18 024 10:00 AM PM TECHNICIAN documented as of this encounter Care Teams Manager Of Financial Reporting Relationship Specialty Start Date End Date Marco Woods MD #2 [facility] [address] [place] [address] PCP - General Family Medicine 11/22/17 Kirsten Niño MD #[address] [address] Consulting Physician Endocrinology 07/17/22 Chin Burrows MD [facility] [address] Consulting Physician General Surgery 11/22/22 Michelle Mendes APRN, BIG DATA LEAD #[address] [address] Nurse Practitioner Advanced Practice Nurse 08/14/22 Chantelle Nix APRN, BIG DATA LEAD #[address] [place] [address] Nurse Practitioner Advanced Practice Nurse 02/19/24 Analia Meza MD #2 [facility] [address] Consulting Physician Otolaryngology 05/11/25 documented as of this encounter
[2025-05-28 09:05] VITALS: BP 144/65; PULSE 74; RESP 16; TEMP 37.1; O2SAT 98
[2025-05-28] MEDS: ACETAMINOPHEN 500 MG TABLET 1000 MG PO (09:07)
[2025-05-28] MEDS: LACTATED RINGERS 1,000 ML 30 ML IV CONT (09:29)
--- NOTE | 2025-05-28 09:30 | WPDANESEPPF ---
Anes - Initial Pre Proc Eval Procedure: Operation Date: 05/28/25 10:15 Proposed Procedures p Right Endoscopic Carpal Tunnel Release, Possible Open Carpal Tunnel Release - Colten Spencer MD Date/Time: 05/28/25 09:30 Surgeon: Colten Spencer MD Pre Op Diagnosis: Right Carpal Tunnel Syndrome Patient Data Age: 69 Gender: F Height: 1.5 m Weight: 82.3 kg Last Vital Signs Temp 98.7 F 05/28/25 09:05 Pulse 74 05/28/25 09:05 Resp 16 05/28/25 09:05 BP 144/65 H 05/28/25 09:05 Pulse Ox 98 05/28/25 09:05 O2 Del Method Room Air 05/28/25 09:05 Allergies Allergy/AdvReac Type Severity Reaction Status Date / Time alendronate sodium (From AdvReac Mild GI upset Verified 05/28/25 09:04 Fosamax) codeine AdvReac Mild Nausea and Verified 05/28/25 09:04 Vomiting metronidazole AdvReac Mild GI upset Verified 05/28/25 09:04 NSAIDS (Non-Steroidal AdvReac Mild GI upset Verified 05/28/25 09:04 Anti-Inflamma quetiapine AdvReac Mild GI upset Verified 05/28/25 09:04 tolmetin AdvReac Mild GI upset Verified 05/28/25 09:04 Home Medications ?Medication ?Instructions ?Recorded ?Confirmed ?Type atorvastatin 20 mg tablet (Lipitor) 20 mg PO DAILY 11/27/24 05/28/25 History hydroxyzine HCl 25 mg tablet 25 mg PO BID 11/27/24 05/28/25 History ropinirole 2 mg tablet 2 mg PO TID 11/27/24 05/28/25 History amlodipine 5 mg tablet 5 mg PO DAILY 12/09/24 05/28/25 History olanzapine 10 mg tablet 10 mg PO HS 12/09/24 05/28/25 History tramadol 50 mg tablet 50 mg PO TID PRN pain 12/09/24 05/28/25 History linaclotide 145 mcg capsule 290 mcg (2 x 145 mcg) PO DAILY 1 01/13/25 05/28/25 Rx (Linzess) month #60 caps buspirone 5 mg tablet 5 mg PO TID 1 month #90 tabs 03/26/25 05/28/25 Rx levothyroxine 112 mcg tablet 137 mcg PO DAILY 03/26/25 05/28/25 History (Synthroid) acetaminophen 500 mg capsule 500 mg PO Q8H PRN pain 05/08/25 05/28/25 History furosemide 20 mg tablet 20 mg PO DIRECTED 05/08/25 05/28/25 History lurasidone 20 mg tablet 20 mg PO HS 05/08/25 05/28/25 History omeprazole 40 mg capsule,delayed 40 mg PO BID 05/08/25 05/28/25 History release ondansetron 4 mg disintegrating 4 mg PO Q6H PRN nausea and vomiting 05/08/25 05/28/25 History tablet Patient hx anesthesia problems: other (aspiration pneumonia post EGD) Family hx anesthesia problems: none Results Review: All pre-operative results and documents have been reviewed as part of the pre-operative evaluation. [facility] Past Medical History Medical History Retained food in stomach Elevated fecal calprotectin Chronic Helicobacter pylori gastritis Early satiety Colon polyps Fatty liver History of stomach ulcers Gastric polyp Constipation Gastroparesis Abdominal distension Nausea and vomiting Abdominal bloating Social History Social History Smoking status: Never smoker Second hand tobacco smoke exposure: Yes Alcohol intake: never Substance use: never Substance use type: does not use Living arrangements: with family Spiritual care concerns: No Anes - Eval Final PreProcedure Day of Procedure 05/28/25 09:30 Heart: regular rate and rhythm Lungs: clear to auscultation Airway: Mallampati scale Neurological: alert and oriented ASA classification: III Anesthetic plan: proceed Anesthesia type and monitoring: monitored anesthesia care Results Review: All pre-operative results and documents have been reviewed as part of the pre-operative evaluation. Informed Consent: The patient's anesthetic plan and its attendant risks and benefits were discussed with the patient/family/POA. Questions were solicited and answers provided to the satisfaction of the patient/family/POA.
[2025-05-28] MEDS: LIDO 1%/EPINEPHRINE 1:100,000 20 ML VIAL INFILTRATE (09:53)
[2025-05-28 10:00] VITALS: BP 130/63; PULSE 73; RESP 16; O2SAT 98
--- NOTE | 2025-05-28 10:08 | WPDANESPN ---
Anes - Prog Note Post-Op Date/Time: 05/28/25 10:08 Vital Signs: Last Vital Signs Temp 98.7 F 05/28/25 09:05 Pulse 74 05/28/25 09:05 Resp 16 05/28/25 09:05 BP 144/65 H 05/28/25 09:05 Pulse Ox 98 05/28/25 09:05 O2 Del Method Room Air 05/28/25 09:05 Pain Score (VAS): no Patient Feedback: Patient satisfied with anesthetic care.
[2025-05-28 10:25] VITALS: BP 130/62; PULSE 68; RESP 18; O2SAT 98
== END 2025-05-28 10:32 | disposition home or self-care (01) ==
LOC: ASC 08:45
PROVIDERS: PCP Internal Medicine; Visit Provider Plastic Surgery
PROC: 01N54ZZ Release Median Nerve, Percutaneous Endoscopic Approach (ICD-10-PCS; CPT 29848; principal; 2025-05-28 10:15)
DX: G56.01 Carpal tunnel syndrome, right upper limb (principal)
CPT/HCPCS: 29848

== ENCOUNTER 2025-06-09 12:33 | Outpatient (CLI) | payer MEDICARE, MEDICAID, SELFPAY ==
--- NOTE | ~2025-06-09 | XR_ITS ---
EXAMINATION: XR small bowel follow through DATE: 06/09/2025 16:18 INDICATION: Gaseous abdominal distention TECHNIQUE: Quality Liaison radiograph(s) of the abdomen was/were obtained. Oral contrast was administered, and sequential radiographs of the abdomen were obtained until oral contrast was noted to be in the proximal colon. Spot fluoroscopic images of the small bowel were obtained. Fluoroscopy exposure time was 0.6 minutes. A total of 13 overhead radiographs and 6 fluoroscopic images were recorded. Total DAP was 399.189 Gycm^2. COMPARISON: None. FINDINGS: Large amount of stool in the proximal colon on the machine mover radiograph. There is gas scattered throughout additional loops of nondilated large and small bowel throughout the abdomen and pelvis. Suture line in the left hemipelvis. Transit time from the stomach to proximal colon was approximately 3 hours. There is normal caliber and mucosal fold pattern throughout the small bowel. Terminal ileum is normal. IMPRESSION: 1. Normal small bowel follow-through. Reviewed, dictated and finalized at location A.
--- OUTSIDE RECORDS SUMMARY | 2025-06-09 12:40 | XMS_ITS | Clinical Summary ---
Author Organization [facility] Address [address] [address] Phone Care Team Providers Care Drawer Liner Name Role Phone Marco Woods MD Primary Care Provider [phone] Kirsten Niño MD Unavailable Chin Burrows MD Unavailable Michelle Mendes HOT CAR CHARGER, LEAN MANUFACTURING LEADER Unavailable [phone] Chantelle Nix APRN, LEAN MANUFACTURING LEADER Unavailable Analia Meza MD Unavailable [phone] Allergies Active Allergy Reactions Criticality Noted [...] by mouth daily. 90 Tablet 3 11/04/19 Active Linzess 145 MCG CapsuleIndicati ons:Chronic constipation TAKE 1 CAPSULE BY MOUTH EVERY MORNING BEFORE BREAKFAST 30 Capsule 2 12/25/19 Active furosemide (LASIX) 20 MG Tablet Take 1 Tablet by mouth every morning. 7 Tablet 03/06/20 Active Additional Information Patient not taking.Reported on 05/29/2025 rOPINIRole (REQUIP) 2 MG Tablet Take 1 Tablet by mouth 3 times daily for 120 days. 90 Tablet 3 03/12/20 25 2024 Active amLODIPine (NORVASC) 5 MG Tablet TAKE 1 TABLET BY MOUTH DAILY 90 Tablet 2 03/31/20 Active levothyroxine (SYNTHROID) 150 MCG Tablet Take 1 Tablet by mouth daily. 90 Tablet 1 04/07/20 Active Azelastine HCl 137 MCG/SPRAY SolutionIndicat ions:PND (post-nasal drip) take 2 Sprays by inhalation 2 times daily. 30 mL 3 04/07/20 Active Additional Information Patient not taking.Reported on 05/29/2025 potassium chloride SA (KLORCON M) 20 MEQ Tablet Controlled Release TAKE 1 TABLET BY MOUTH DAILY 90 Tablet 04/07/20 Active Additional Information Patient not taking.Reported on 05/29/2025 busPIRone (BUSPAR) 5 MG Tablet 03/26/20 Active omeprazole (PriLOSEC) 40 MG CAPSULE DELAYED RELEASE Take 40 mg by mouth 2 times daily. 04/09/20 Active ondansetron (ZOFRAN-ODT) 4 MG TABLET DISPERSIBLE 04/07/20 Active Prolia 60 MG/ML Solution Prefilled SyringeIndicati ons:Osteoporosi s, unspecified osteoporosis type, unspecified pathological fracture presence INJECT 1 ML( 60 MG) UNDER THE SKIN ONCE FOR 1 DOSE 1 mL 04/15/20 25 Active Fluticasone-Ume clidin-Vilant (Trelegy Ellipta) 100-62.5-25 MCG/ACT AEROSOL POWDER, BREATH ACTIVATED take 1 Puff by inhalation daily. 1 Each 3 04/20/20 Active ramelteon (ROZEREM) 8 MG Tablet TAKE 1 TABLET BY MOUTH EVERY NIGHT 90 Tablet 1 04/21/20 Active Additional Information Patient not taking.Reported on 05/29/2025 lurasidone (LATUDA) 20 MG Tablet Take 20 mg by mouth nightly. 05/05/20 Active fluticasone (FLONASE) 50 MCG/ACT SuspensionIndic ations:Post-luli al drip,Deviated nasal septum,Chronic sinusitis, unspecified location,Hypert rophy of both inferior nasal turbinates,Nasa l congestion,Sinu s headache 2 Sprays by Nasal route daily for 30 days. Use in each nostril as directed. 9.9 mL 2 05/13/20 25 2024 Active traMADol (ULTRAM) 50 MG TabletIndicatio ns:Pain of upper abdomen TAKE 1 TO 2 TABLETS BY MOUTH EVERY 8 HOURS NEEDED FOR MODERATE TO SEVERE PAIN 120 Tablet 05/20/20 25 Active QUEtiapine Fumarate (SEROquel) 50 MG Tablet Take 1 Tablet by mouth nightly. 05/14/20 25 Active hydrOXYzine (ATARAX) 25 MG Tablet TAKE 1 TABLET BY MOUTH EVERY 6 HOURS NEEDED FOR ITCHING 90 Tablet 06/06/20 25 Active OXYGEN CONCENTRATOR 2 L/min by Does not apply route as needed for Other (shortness of breath). Discontinued(E rror) hydrOXYzine (ATARAX) 25 MG Tablet TAKE 1 TABLET BY MOUTH EVERY 6 HOURS NEEDED FOR ITCHING 90 Tablet 04/14/20 25 2024 Discontinued traMADol (ULTRAM) 50 MG TabletIndicatio ns:Pain of upper abdomen TAKE 1 TO 2 TABLETS BY MOUTH EVERY 8 HOURS NEEDED FOR MODERATE TO SEVERE PAIN 120 Tablet 04/30/20 25 2024 Discontinued doxycycline hyclate (VIBRAMYCIN) 100 MG CapsuleIndicati ons:Post-nasal drip,Deviated nasal septum,Chronic sinusitis, unspecified location,Hypert rophy of both inferior nasal turbinates,Nasa l congestion,Sinu s headache Take 2 Capsules by mouth daily for 1 day, THEN 1 Capsule daily for 20 days. 22 Capsule 05/13/20 25 2024 Hospital, Clinic, or Other Facility Administered Medication [...] Encounters Date Type Department Care Team Description 06/08/2025 [facility] [address] [place] [address] Analia Meza MD 06/06/2025 [facility] [place] [facility] [place] [address] Marco Woods MD Medication Refill 06/05/2025 [facility] [address] [place] [phone] Marco Woods MD Advice Only 06/04/2025 [facility] [place] [facility] [place] [address] Marco Woods MD Medication Refill 06/03/[address] [facility] [address] [place] [phone] Marco Woods MD Advice Only 06/03/[address] [facility] [address] [place] [phone] Marco Woods MD Medication Management; Follow-up 06/03/2025 [facility]phone [facility] [address] [place] [phone] Marco Woods MD Referral 05/29/2025 Nurse Triage [facility] [address] [place] [phone] Marco Woods MD Insomnia 05/26/2025 Telephone [facility] [place] [address] [place] [phone] Kirsten Niño MD Medication Management 05/26/2025 [facility]phone [facility] [address] [place] [phone] Marco Woods MD Medication Management; Follow-up 05/18/2025 Telephone [facility] [address] [place] [phone] Marco Woods MD Medication Refill 05/18/2025 [facility]phone [facility] [address] [place] [phone] Marco Woods MD Medication Management 05/18/2025 Telephone [facility] [address] [place] [phone] Marco Woods MD Advice Only 05/15/2025 [facility] [place] [address] [place] [address] Mirtha Steiner APRN, CNP Medication Refill 05/15/2025 Telephone [facility] [address] [place] [phone] Marco Woods MD Follow-up 05/13/2025 3:00 PM CDT Immunization [facility] - Endocrinology - [place] [address] [place] [phone] NurseVladislav Endo Osteoporosis, unspecified osteoporosis type, unspecified pathological fracture presence (Primary Dx); Hypercalcemia Discharge Disposition: Discharged to home or Selfcare 05/13/2025 1:45 PM CDT Office Visit [facility] - [facility], Nose & Throat - [place] [address] [place] [address] Marco Woods MD Alkarmi, Ayham, MD Post-nasal drip (Primary Dx); Deviated nasal septum; Chronic sinusitis, unspecified location; Hypertrophy of both inferior nasal turbinates; Nasal congestion; Sinus headache Discharge Disposition: Discharged to home or Selfcare 05/13/2025 [facility] [place] [address] Kirsten Niño MD Results 05/11/2025 9:45 AM CDT Office Visit [facility] [address] [place] [address] Kirsten Niño MD Acquired hypothyroidism (Primary Dx); Osteoporosis, unspecified osteoporosis type, unspecified pathological fracture presence; Hyperparathyroidism (HCC) Discharge Disposition: Discharged to home or Selfcare 05/11/2025 Travel 05/05/2025 [facility]phone [facility] [address] [place] [phone] Marco Woods MD Letter for School/Work 05/04/2025 Telephone [facility] [address] [place] [address] [phone] Marco Woods MD Results 05/01/2025 Telephone [facility] [address] [place] [address] [phone] Marco Woods MD Results 05/01/2025 Telephone [facility] [address] [place] [phone] Marco Woods MD Message to PCP frpm patient 04/29/[address] [facility] [address] [place] [address] [phone] Marco Woods MD Follow-up 04/28/2025 Telephone [facility] [address] [place] [address] [phone] Marco Woods MD Results 04/26/2025 Telephone [facility] [address] [place] [phone] Marco Woods MD Follow-up 04/24/2025 Refill [facility] [address] [place] [address] Marco Woods MD Medication Refill 04/23/2025 Telephone [facility] Call Center [address] [place] [phone] Marco Woods MD Medication Management 04/21/2025 6:30 AM CDT - 04/21/2025 11:59 PM CDT [facility] [address] [place] [address] Marco Woods MD Discharge Disposition: Discharged to home or Selfcare 04/21/2025 Refill [facility] [address] [place] [address] Marco Woods MD Medication Refill 04/21/2025 Telephone [facility] Central Call [address] [phone] Marco Woods MD Medication Management 04/20/2025 1:15 PM CDT Office Visit [facility] [address] [place] [address] Marco Woods MD Essential hypertension (Primary Dx); Chronic maxillary sinusitis; Chronic neck pain Discharge Disposition: Discharged to home or Selfcare 04/20/2025 Refill [facility] Pulmonology & Sleep Medicine [facility] [address] [place] [address] Michelle Mendes APRN, DREW Medication Refill 04/20/2025 Travel 04/20/2025 Nurse Triage [facility] Central Call [address] [phone] Marco Woods MD Neck Pain 04/16/2025 Telephone [facility] [place] [address] [place] [phone] Jeniffer Devries APRN, CNP 04/15/2025 Refill [facility] [address] [place] [address] Kirsten Niño MD Medication Refill; Care Management 04/14/2025 6:30 PM CDT Office Visit [facility] [address] [place] [address] Marco Woods MD Carpal tunnel syndrome of right wrist (Primary Dx); Essential hypertension; Mixed hyperlipidemia; Acquired hypothyroidism; Pain of upper abdomen Discharge Disposition: Discharged to home or Selfcare 04/13/2025 Telephone [facility] [address] [place] [address] Marco Woods MD 04/12/2025 Results Follow-Up [facility] [address] [place] [address] Jeniffer Devries APRN, DREW POC GROUP A STREP BY MOLECULAR, POCT UA AUTOMATED W/O MICRO, VAGINITIS SCREEN, MOLECULAR 04/11/2025 8:10 AM CDT Urgent Care Visit [facility] [address] [place] [address] Jeniffer Devries APRN, DREW Vaginal discharge (Primary Dx); Sore throat; Flank pain Discharge Disposition: Discharged to home or Selfcare 04/11/2025 Refill [facility] [address] [place] [address] Marco Woods MD Medication Refill 04/11/2025 Travel 04/10/2025 Telephone [facility] Central Call Center [address] [place] [phone] Marco Woods MD Advice Only 04/10/2025 Telephone [facility] [address] [place] [address] Marco Woods MD 04/09/2025 [facility]phone [facility] [address] [place] [phone] Marco Woods MD Medication Management 04/08/2025 Telephone [facility] [address] [place] [phone] Marco Woods MD Form Completion; Results 04/07/2025 [facility] [place] [address] [place] [address] Marco Woods MD Medication Refill 04/07/2025 [facility] [place] [address] [place] [address] Michelle Mendes APRN, CNP Medication Refill 04/07/2025 [facility] [place] [address] [place] [address] Kirsten Niño MD 04/07/2025 Telephone [facility] [address] [place] [phone] Marco Woods MD Medication Management 04/06/2025 Telephone [facility] [address] [place] [address] Marco Woods MD 04/06/2025 Results Follow-Up [facility] [address] [place] [address] Marco Woods MD EMG 04/03/2025 [facility]ill [facility] [address] [place] [phone] Marco Woods MD Follow-up; Medication Refill 04/02/2025 2:30 PM CDT [facility] [address] [place] [address] Marco Woods MD Bilateral hand numbness Discharge Disposition: Discharged to home or Selfcare 04/02/2025 Travel 03/30/2025 [facility] [place] [address] [place] [address] Marco Woods MD Medication Refill 03/30/2025 Telephone [facility] [address] [place] [phone] Marco Woods MD 03/30/2025 [facility] [address] [place] [address] Michelle Mendes APRN, LEAN MANUFACTURING LEADER Medication Refill 03/30/2025 [facility] [place] [address] [place] [address] Marco Woods MD Medication Refill 03/29/2025 [facility]phone [facility] [place] [address] [place] [address] Marco Woods MD 03/25/[address] [facility] [address] [place] [phone] Marco Woods MD Medication Management 03/24/2025 [facility]phone [facility] [place] [address] [place] [address] Marco Woods MD 03/24/2025 [facility]phone [facility] [address] [place] [phone] Marco Woods MD Message to PCP from patient; Medication Refill 03/17/2025 Telephone [facility] [address] [place] [phone] Marco Woods MD Advice Only 03/13/2025 Refill [facility] [address] [place] [address] Marco Woods MD Medication Refill 03/12/2025 8:00 AM CDT Office Visit [facility] [address] [place] [address] Marco Woods MD Peripheral edema (Primary Dx); Acquired hypothyroidism Discharge Disposition: Discharged to home or Selfcare 03/12/2025 Telephone [facility] Call Center [address] [place] [address] [phone] Marco Woods MD Need Order 03/12/2025 Telephone [facility] Pulmonology & Sleep Medicine [facility] [address] [place] [address] Michelle Mendes APRN, CNP Medication Management 03/10/2025 Telephone [facility] Central Call Center [address] [place] [address] [phone] Marco Woods MD Follow up/Information 03/09/2025 6:09 PM CDT - 03/09/2025 8:45 PM [facility]T [facility] [address] [place] [address] Nikhil Robles PAC DOE (dyspnea on exertion) Discharge Disposition: Discharged to home or Selfcare 03/09/2025 Travel 03/09/2025 Telephone [facility] Center [address] [place] [phone] Marco Woods MD Results 03/09/2025 Telephone [facility] [address] [place] [address] [phone] Marco Woods MD Medication Management; Shortness of Breath 03/09/2025 Telephone [facility] Call Center [address] [place] [address] [phone] Marco Woods MD Medication Management 03/09/2025 Nurse Triage [facility] [place] [phone] Marco Woods MD Shortness of Breath from Last 3 Months Immunizations Immunization Administration [...] drink = 0.6 oz pur e alcohol) [facility] Utilities Answer Date Recorded In the past 12 months has e [employer], gas, oil, or water [employer] threatened to shut off services in your home? Patient unable to answer 06/25/2024 Social Connection and Isolation Panel Answer Date Recorded In a typical week, how many times do you talk on the phone with family, friends, or neighbors? Patient declined 06/25/2024 How often do you get togethe r with friends or relatives? Patient declined 06/25/2024 How often do you attend sikh or latter-day serv ices? Patient declined 06/25/2024 [...] Total Score - Questions 1-9 18 10/24 [facility] [...] any time in the past 12 m [facility], were you homeless or living [...] Sex Assigned at Female 11/22/2023 11:58 AM SMOKE INSPECTOR Legal Sex Female 11:34 PM CDT Gender Identity Female 11/22/2023 11:58 AM SMOKE INSPECTOR Sexual Orientation Not on file Occupation [...] Care Team (Late st Contact Info) Description 06/30/2025 11:00 AM CDT Office Visit [facility] - Ear, Nose & Throat - [place] [address] [place] [phone] Analia Meza MD [address] [phone] 07/03/2025 5:30 PM CDT [facility] [address] [place] [phone] Analia Meza MD #[address] [phone] Discharge Disposition: Discharged to home or Selfcare 07/17/2025 10:30 AM CDT [facility] - Pulmonology & Sleep Medicine - [place] [address] [place] [phone] Michelle Mendes APRN, LEAN MANUFACTURING LEADER #2 [facility] [address] [place] [address] 08/11/2025 9:45 AM CDT Office Visit [facility] - Endocrinology - [place] [address] [place] [phone] Kirsten Niño MD [address] [address] [phone] (work) Health Maintenance Due Date Last Done Comments Cologuard 2000 Immunochemical Fecal Occult Blood 2000 Hepatitis B Immunization (2 of 3 - Hep B Twinrix 3-dose series) 04/01/2015 03/04/2015 Respiratory Syncytial Virus (RSV) Immunization (Adult) (1 - Risk 60-74 years 1-dose series) 2015 Zoster Immunization (2 of 2) 06/04/2023 04/09/2023 Mammogram 05/08/2024 05/08/2023, /02/2022, 01/03/2021, Additional history exists SARS-COV-2 Immunization ( [...] this topic Medical Devices Implanted Type Area Windows Server Architect Device Identifier Shelf Expiration Date Model / Serial / Lot Clip 360 Resolution 235cm - [id number] Implanted:Qty: 2 on 07/12/2020 by Dani Garrett DO at [facility] IMPLANT [employer] 05/03/2023 [id number] / [id number] / [id number] Procedures Procedure Name Priority Date/Time Associated Diagnosis Comments EXTERNAL ORTHOPEDIC REFERRAL Less Than 4 weeks 05/28/2025 12:00 AM CDT NASAL ENDOSCOPY,DX Routine 05/13/2025 1: 45 PM [...] CDT EKG SCAN 03/09/2025 12:00 AM CDT HM COLONOSCOPY 12/11/2024 12:00 AM SMOKE INSPECTOR YU BONE DENSITOMETRY AXIAL SKELETON Routine 11/28/2024 2:24 PM SMOKE INSPECTOR Hyperparathyroidis m (HCC) Osteoporosis, unspecified osteoporosis type, unspecified pathological fracture presence YU SCREENING BILATERAL DIGITAL W CAD W NATALIIA Routine 05/08/2023 12:09 PM CDT Encounter for screening mammogram for malignant neoplasm of breast HEPATITIS PANEL ACUTE (AHP) 02/23/2023 12:00 AM CDT from Last 3 Months or Most Recently Relevant to Health Maintenance Results * EXTERNAL ORTHOPEDIC REFERRAL (05/28/2025 12:00 AM CDT) 05/28/2025 us Marco Woods MD OUTPT REFERRALS EXT/INT Final Result SCAN * NASAL ENDOSCOPY,DX (05/13/2025 1:45 PM CDT) [...] turbinate, no mucopurulent secretion nasopharynx EBL: none Analia Meza MD PROCEDURE/MINOR SURGICAL ORDERA BLES Final Result * VITAMIN D, 25 HYDROXY TOTAL (05/13/2025 6:46 AM CDT) VITAMIN D, 25 HYDROX 14.6 ng/mL 05/13/2025 7:51 AM CDT [facility] Blood Venipuncture / Unknown 05/13/2025 6:46 AM CDT 05/13/2025 7:16 AM CDT Narrative [facility] - 05/13/2025 7:51 AM CDT Published reference ranges for Vitamin D vary depending on time and place and method of testing, and on patient's age, sex, ethnicity and levels of other measured analytes such as parathormone, calcium and phosphorus. The result should be evaluated in conjunction with clinical findings and suspicions. [place] of [facility] and Endocrine Clinical Practice Guidelines: Status Vitamin D levels (ng/mL) Deficient <=20 At risk of inadequacy 21-29 Sufficient 30-100 Centers of Disease Control and Prevention Guidelines: Status Vitamin D levels (ng/mL) Deficient <13 At risk of inadequacy 13-19 Sufficient 20-50 Possibly harmful >50 References: [place] [employer] [place], 2010 Dietary reference intakes for calcium and vitamin D. [place]: The National Academies Press. Betty M, Simba N, Sri LARSEN, et al., Evaluation, treatment, and prevention of Vitamin D deficiency: an Endocrinology Clinical Practice Guideline. JCEM 2011 96: 7 9376-9266. Stella Marlow, Laith Linton, Saundra Baltazar, et al., Vitamin D Status: [place], 2055-4551, [facility] data brief, no. 59, MD Hung: [facility] Statistics. 2011. us Kirsten Niño MD CHEMISTRY ORDERABLES Final Resul t Performing Organization Address City/[facility] Co de Phone Number [facility] [address] [place] [address] * THYROXINE (T4) FREE (05/13/2025 6:46 AM CDT) T4 FREE 1.0 0.7 - 1.9 ng/dL 05/13/2025 7:50 AM CDT [email or web address] Blood Venipuncture / Unknown 05/13/2025 6:46 AM CDT 05/13/2025 7:16 AM CDT us Kirsten Niño MD CHEMISTRY ORDERABLES Final Resul t Performing Organization Address [facility] de Phone Number [facility] [address] [place] [address] * (ABNORMAL) THYROID STIMULATING HORMONE (TSH) (05/13/2025 6:46 AM CDT) TSH 24.713(H) 0.300 - 5.000 mIU/L 05/13/2025 7:50 AM CDT [email or web address] Blood Venipuncture / Unknown 05/13/2025 6:46 AM CDT 05/13/2025 7:16 AM CDT us Kirsten Niño MD CHEMISTRY ORDERABLES Final Resul t Performing Organization Address City/[facility]/ZIP Co de Phone Number [facility] [address] [place] [address] * PARATHYROID HORMONE PTH INTACT (05/13/2025 6:46 AM CDT) PTH INTACT 61 13 - 85 pg/mL 05/13/2025 7:53 AM CDT [facility] Blood Venipuncture / Unknown 05/13/2025 6:46 AM CDT 05/13/2025 7:16 AM CDT us Kirsten Niño MD CHEMISTRY ORDERABLES Final Resul t [facility] [address] [place] [address] * XR CERVICAL SPINE MINIMUM 4 VIEWS [...] Stephen Herrmann M.D. RB: JIMY Report ID: [id number] Reading Location: [id number] Procedure Note Stephen Herrmann MD - 05/01/2025 [...] Stephen Herrmann M.D. RB: JIMY Report ID: [id number] Reading Location: [id number] IMPRESSION: 1. No acute bony abnormality in the cervical spine. 2. 2 mm anterior subluxation C2 on C3 and C3 on C4 with reversal of cervical lordosis. 3. Multilevel cervical spondylosis and degenerative disc disease as described above. Marco Woods MD [facility] DIAGNOSTIC ORDERABLES Fin al Result * VAGINITIS SCREEN, MOLECULAR (04/11/2025 8:54 AM CDT) TRICHOMONAS NOT DETECTED NOT DETECTED 04/11/2025 10:35 PM CDT [facility] BACTERIAL VAGINOSIS NOT DETECTED NOT DETECTED 04/11/2025 10:35 PM CDT [facility] ABY NOT DETECTED NOT DETECTED 04/11/2025 10:35 PM CDT [facility] Comment: Aby group Not detected with the following possible Aby species: Aby albicans and/or Aby tropicalis and/or Aby parapsilosis and/or Aby dubliniensis ABY GLABRATA NOT DETECTED NOT DETECTED 04/11/2025 10:35 PM CDT [facility] ABY KRUSEI NOT DETECTED NOT DETECTED 04/11/2025 10:35 PM CDT [facility] Other VAGINAL STRUCTURE / Unknown Non-Phlebotomy Collection / Unknown 04/11/2025 8:54 AM CDT 04/11/2025 8:54 AM CDT Jeniffer Devries APRN, LEAN MANUFACTURING LEADER MICROBIOLOGY - GEN ERAL ORDERABLES Final Result Performing Organization Address City/State/[facility] Co de Phone Number [facility] [address] [place] [address], [place] * POCT UA AUTOMATED W/O MICRO (04/11/2025 8:21 AM CDT) [facility] POC UA SPECIFIC GRAVITY 1.015 URINE PH [...] 04/11/2025 8:21 AM CDT Jeniffer Devries APRN, LEAN MANUFACTURING LEADER POINT OF CARE TEST ING (MANUAL) Final Result * POC GROUP A STREP BY MOLECULAR (04/11/2025 8:21 AM CDT) STREP A DNA Negative Negative, Invalid PROCEDURE CONTROL Valid 04/11/2025 8:2 1 AM CDT Jeniffer Devries HOT CAR CHARGER, LEAN MANUFACTURING LEADER POINT OF CARE TEST ING (MANUAL) Final [...] the flexor retinaculum. Clinical correlation is recommended. us Marco Woods MD NEUROLOGY ORDERABLES V2 Final Result SCAN * IMAGE GENERIC SCAN (03/30/2025 12:00 AM CDT) 03/30/2025 us Provider Scan IMG DIAGNOSTIC ORDERABLES Final Result SCAN * EXTERNAL GASTROENTEROLOGY REFERRAL (03/26/2025 12:00 AM CDT) 03/26/2025 us Marco Woods MD OUTPT REFERRALS EXT/INT Final Result SCAN * XR CHEST SINGLE VIEW PORTABLE [...] Lavelle Gu M.D. KH: SWEETIE Report ID: [id number] Reading Location: [id number] Procedure Note Lavelle Gu MD - 03/09/2025 [...] Lavelle Gu M.D. KH: SWEETIE Report ID: [id number] Reading Location: [place] [address] IMPRESSION: No acute cardiopulmonary abnormality. Nikhil Robles [facility] IMG DIAGNOSTIC ORDER KRYS Final Result * TROPONIN I, HIGH SENSITIVITY (HSTRP) (03/09/2025 6:37 PM CDT) [facility] TROPONIN I, HIGH SENSITIVITY- LEACH 3 <=14 ng/L 03/09/2025 7:41 PM CDT [email or web address] LAB Comment: High-sensitivity troponin I results are reported in ng/L making the result appear to be 1,000 times higher than the contemporary troponin I value which is reported in ng/ml. Results from [place]. Blood Venipuncture / Unknown 03/09/2025 6:37 PM CDT 03/09/2025 7:[address] [facility] CHEMISTRY ORDERABLES Final Result [facility] [address] [place] [address] * (ABNORMAL) CBC WITH AUTO DIFFERENTIAL (03/09/2025 6:37 PM CDT) [facility] WBC 13.50(H) 4.00 - 12.00 10(3)/mcL 03/09/2025 7:53 PM CDT [facility] [[email or web address] LAB RBC 4.10 3.80 - 5.30 10(6)/mcL 03/09/2025 7:53 PM CDT [facility] [[email or web address] LAB HEMOGLOBIN (HGB) 11.7(L) 12.0 - 15.8 g/dL 03/09/2025 7:53 PM CDT [facility] HEMATOCRIT (HCT) 36.7 36.0 - 47.0 % 03/09/2025 7:53 PM CDT [email or web address] LAB MCV 89.5 82.0 - 96.0 fL 03/09/2025 7:53 PM CDT [email or web address] LAB MCH 28.5 26.0 - 34.0 pg 03/09/2025 7:53 PM CDT [email or web address] LAB MCHC 31.9 31.0 - 36.0 g/dL 03/09/2025 7:53 PM CDT [facility] [[email or web address] LAB PLATELET COUNT 698(H) 140 - 440 10(3)/mcL 03/09/2025 7:53 PM CDT [facility] [[email or web address]] LAB RDW 16.2(H) 11.8 - 15.5 % 03/09/2025 7:53 PM CDT [email or web address] LAB MPV 10.1 9.7 - 12.4 fL 03/09/2025 7:53 PM CDT [email or web address] LAB NRBC PER 100 WBC 0 03/09/2025 7:53 PM CDT [email or web address] LAB Blood Venipuncture / Unknown 03/09/2025 6:37 PM CDT 03/09/2025 7:14 PM CDT Nikhil Robles PAC HEMATOLOGY ORDERABLE S Final Result [facility] [address] [place] [address] * MAGNESIUM (MG) (03/09/2025 6:37 PM CDT) MAGNESIUM 1.6 1.6 - 2.6 mg/dL 03/09/2025 7:37 PM CDT [facility] [[email or web address] LAB Blood Venipuncture / Unknown 03/09/2025 6:37 PM CDT 03/09/2025 7:14 PM CDT Nikhil Robles PAC CHEMISTRY ORDERABLES Final Result [facility] [address] [place] [address] * (ABNORMAL) CMP (COMPREHENSIVE METABOLIC PANEL) (03/09/2025 6:37 PM CDT) SODIUM 138 136 - 145 mmol/L 03/09/2025 7:37 PM CDT [facility] [[email or web address] LAB POTASSIUM 3.7 3.5 - 5.1 mmol/L 03/09/2025 7:37 PM CDT [email or web address] LAB CHLORIDE 113(H) 98 - 107 mmol/L 03/09/2025 7:37 PM CDT [email or web address] LAB CO2, VENOUS 15(L) 22 - 30 mmol/L 03/09/2025 7:37 PM CDT [facility] ANION GAP 13.7 <18.0 mmol/L 03/09/2025 7:37 PM CDT [facility] GLUCOSE 110(H) 70 - 99 mg/dL 03/09/2025 7:37 PM CDT [facility] BUN 14 10 - 20 mg/dL 03/09/2025 7:37 PM CDT [facility] CREATININE, BLOOD 0.64 0.60 - 1.00 mg/dL 03/09/2025 7:37 PM CDT [facility] BUN/CREATININE RATIO 22(H) 12 - 20 ratio 03/09/2025 7:37 PM CDT [facility] TOTAL PROTEIN 7.5 6.0 - 8.0 g/dL 03/09/2025 7:37 PM CDT [facility] ALBUMIN 3.7 3.5 - 5.0 g/dL 03/09/2025 7:37 PM CDT [facility] A/G RATIO 1.0 1.0 - 2.2 03/09/2025 7:37 PM CDT [facility] CALCIUM 9.0 8.7 - 10.5 mg/dL 03/09/2025 7:37 PM CDT [facility] T BILI 0.2 0.2 - 1.2 mg/dL 03/09/2025 7:37 PM CDT [email or web address] SGOT (AST) 57(H) <43 U/L 03/09/2025 7:37 PM CDT [facility] SGPT (ALT) 58(H) <56 U/L 03/09/2025 7:37 PM CDT [facility] [[email or web address] LAB ALKALINE PHOSPHATASE 212(H) 40 - 150 U/L 03/09/2025 7:37 PM CDT [facility] [[email or web address] LAB GFR, ESTIMATED >60 >=60 03/09/2025 7:37 PM CDT [facility] Comment: Creatinine Clearance is the preferred criteria for selecting drug dose adjustments in renally impaired patients. The GFR is provided as additional pertinent clinical information. GFR is reported in mL/min/1.73 sq m. Calculation based on the Chronic Kidney Disease Epidemiology Collaboration (CKD- EPI) equation refit without adjustment for race. GFR, EST. >60 >=60 025 7:37 PM CDT [facility] GFR, EST. NONAFRICAN >60 >=60 03/09/2025 7:37 PM CDT [facility] Blood Venipuncture / Unknown 03/09/2025 6:37 PM CDT 03/09/2025 7:14 PM CDT Nikhil Robles PAC CHEMISTRY ORDERABLES Final Result [facility] [address] [place] [address] * B-TYPE NATRIURETIC PEPTIDE (BNP) (03/09/2025 6:37 PM CDT) B TYPE NATRIURETIC PEPTIDE <15 <100 pg/mL 03/09/2025 7:54 PM CDT [facility] Blood Venipuncture / Unknown 03/09/2025 6:37 PM CDT 03/09/2025 7:14 PM CDT us Nikhil Robles PAC CHEMISTRY ORDERABLES Final Result [facility] [address] [place] [address] * EKG 12 LEAD (03/09/2025 6:16 PM CDT) Ventricular Rate 62 BPM EXTERNAL EKG Atrial Rate 62 BPM EXTERNAL EKG P-R Interval 160 ms EXTERNAL EKG QRS Duration 114 ms EXTERNAL EKG Q-T Duration 470 ms EXTERNAL EKG QTC CALCULATION 477 ms EXTERNAL EKG P [place] 36 degrees EXTERNAL EKG R [place] -42 degrees EXTERNAL EKG T [place] 24 degrees EXTERNAL EKG 03/09/2025 6:16 PM CDT Impressions EXTERNAL EKG - 03/10/2025 10:14 AM CDT Normal sinus rhythm Left axis deviation Right bundle branch block Abnormal ECG When compared with ECG of 25-JUN-2024 23:32, Sinus rhythm has replaced Atrial fibrillation Vent. rate has decreased BY 77 BPM Confirmed by Karin Strong ([id number]) on 03/10/2025 10:14:45 AM Narrative Procedure Note Karin Strong DO - 03/10/2025 IMPRESSION: Normal sinus rhythm Left axis deviation Right bundle branch block Abnormal ECG When compared with ECG of 25-JUN-2024 23:32, Sinus rhythm has replaced Atrial fibrillation Vent. rate has decreased BY 77 BPM Confirmed by Karin Strong ([id number]) on 03/10/2025 10:14:45 AM us Tyrone Maurice MD IMG ECG ORDERABLES Final Result EXTERNAL EKG * EKG SCAN (03/09/2025 12:00 AM CDT) 03/09/2025 us Provider Scan IMG ECG ORDERABLES Final Result RESULTING AGENCY * HM COLONOSCOPY (12/11/2024 12:00 AM SMOKE INSPECTOR) 12/11/2024 us Provider Scan PROCEDURE/MINOR SURGICAL ORDERAB LES Final Result Performing Organization Address City/State/[facility] Co de Phone Number SCAN * [facility] BONE DENSITOMETRY AXIAL SKELETON (11/28/2024 2:24 PM SMOKE INSPECTOR) Anatomical Region Laterality Modality BODY N/A Computed Radiogr aphy 12/01/2024 9:02 AM SMOKE INSPECTOR Impressions 12/01/2024 9:05 AM SMOKE INSPECTOR IMPRESSION: Low bone mass REFERENCE: Bone mineral [...] of Osteoporosis (http://www.nof.org/professionals/clinical-guidelines) Narrative 12/01/2024 9:05 AM SMOKE INSPECTOR EXAM DESCRIPTION: [facility] BONE DENSITOMETRY AXIAL SKELETON REASON FOR STUDY: 69 y/o year old F with given history of: Hyperparathyroidism. Postmenopausal status. History of prior fracture and secondary osteoporosis. Patient previously took vitamin-D. Patient takes Prolia. Windows Server Architect/Model: [email or web address] (S/N [id number]) Facility LSC value of 0.028 for the [...] Electronically signed by Kaitlin Weems M.D. TW: Report ID: [id number] Reading Location: [place] [address] Procedure Note Kaitlin Weems MD - 12/01/2024 EXAM DESCRIPTION: [facility] BONE DENSITOMETRY AXIAL SKELETON REASON FOR STUDY: 69 y/o year old F with given history of: Hyperparathyroidism. Postmenopausal status. History of prior fracture and secondary osteoporosis. Patient previously took vitamin-D. Patient takes Prolia. Windows Server Architect/Model: [email or web address] (S/N [id number]) Facility LSC value of 0.028 for the [...] Kaitlin Weems M.D. TW: TW Report ID: [id number] Reading Location: [place] [address] IMPRESSION: Low bone mass REFERENCE: Bone mineral [...] copy. Current study was also evaluated with [employer] version 7.2. 2D digital mammographic views, as well as 3D digital tomosynthesis were performed in the CC and MLO projections. CLINICAL: Routine screening. Patient has no complaints. Patient reports 15-20 pound weight loss since last mammogram. No personal history of cancer. Maternal grandmother had breast cancer. COMPARISONS: Comparison is made to exams dated: 01/03/2021, 02/13/2022, and 02/06/2018 [facility]. BREAST TISSUE:The tissue of both breasts is [...] exam. Electronically signed by: Claudia guevara/declan:05/08/2023 19:31:07 Real Estate Sales Supervisor(s): RT Tuan(R)(M), [facility] letter sent: Normal Exam Reading location: [facility] BI-RADS: 2 Benign Procedure Note [...] exams dated: 01/03/2021, 02/13/2022, and 02/06/2018 [facility]. BREAST TISSUE:The tissue of both breasts is [...] exam. Electronically signed by: Claudia guevara/declan:05/08/2023 19:31:07 Real Estate Sales Supervisor(s): RT Tuan(R)(M), [facility] letter sent: Normal Exam Reading location: [place] BI-RADS: 2 Benign Marco Woods MD IMG MAMMO ORDERABLES Final Re sult * HEPATITIS PANEL ACUTE (AHP) (02/23/2023 12:00 AM CDT) 02/23/2023 us Provider Scan HEMATOLOGY ORDERABLES Final Resu lt SCAN from Last 3 Months or Most Recently Relevant to Health Maintenance Insurance [place]ICA[place] [employer] Advance Directives Documents on File Type Date Recorded Patient Dispatch Lead Expl anation Power of Nail Specialist for Health Care 11/27/2022 5:01 PM POA-HC, 11/26/2022 POLST/POST/OR DNR 11/27/2022 5:01 PM POLST, 11/26/2022 Other [...] measures to stabilize the patient. Care Teams Drawer Liner Relationship Specialty Start Date End Date Marco Woods MD #2 [facility] [address] [place] [address] PCP - General Family Medicine 11/22/17 Kirsten Niño MD #[address] [phone] Consulting Physician Endocrinology 07/17/22 Chin Burrows MD #[address] [address] Consulting Physician General Surgery 11/22/22 Michelle Mendes APRN, LEAN MANUFACTURING LEADER #2 [facility] [address] [place] [address] Nurse Practitioner Advanced Practice Nurse 08/14/22 Chantelle Nix APRN, LEAN MANUFACTURING LEADER #[address] [place] [address] Nurse Practitioner Advanced Practice Nurse 02/19/24 Analia Meza MD #[address] [facility] [address] [address] Consulting Physician Otolaryngology 05/11/25
--- OUTSIDE RECORDS SUMMARY | 2025-06-09 12:40 | XMS_ITS | Encounter Summary ---
Author Organization [facility] Address [address] [place] [address] Phone Care Team Providers Care Film Mounter Name Role Phone Marco Woods MD Primary Care Provider [phone] Kirsten Niño MD Unavailable Chin Burrows MD Unavailable Kelsea Root RN Unavailable Unavailable Michelle Mendes APRN, STORAGE MANAGEMENT CONSULTANT Unavailable [phone] Chantelle Nix APRN, STORAGE MANAGEMENT CONSULTANT Unavailable Analia Meza MD Unavailable [phone] Reason for Visit * Reason Comments Medication Refill Encounter Details Date Type Department Care Team (Late st Contact Info) Description 04/23/2021 Refill [facility] - [place] [address] [place] [phone] Dani Garrett, DO [address] [place] [address] Medication Refill Social History Tobacco Use Types Packs/Day Years Used Date Smoking Tobacco: Never Smokeless Tobacco: Former Alcohol Use Standard Drinks/Week Comments Not Currently 0 (1 standard drink = 0.6 oz pur e alcohol) Sexually Active [employer] Comments Not Currently Comments No Sex and Gender Information Value Date Recorded Sex Assigned at Female 11/22/2023 11:58 AM AUTO BODY TECHNICIAN Legal Sex Female 11:34 PM CDT Gender Identity Female 11/22/2023 11:58 AM AUTO BODY TECHNICIAN Sexual Orientation Not on file Occupation [...] Description 06/30/2025 11:00 AM CDT Office Visit [facility] - [place] #2 [place] [address] Analia Meza MD #[address] [phone] 07/03/2025 5:30 PM CDT [facility] [address] [place] [address] Analia Meza MD #[address] [address] Discharge Disposition: Discharged to home or Selfcare 07/17/2025 10:30 AM CDT Office Visit [facility] Pul[facility] & [facility] Medicine [facility] #2 [place] [address] Michelle Mendes, WATERMELON INSPECTOR, STORAGE MANAGEMENT CONSULTANT #2 [facility] [address] [place] [address] 08/11/2025 9:45 AM CDT Office Visit [facility] Endocrin[facility] - [place] #2 [facility] [place] [phone] Kirsten Niño MD #[address] [address] documented as of this encounter Visit Diagnoses Not on filedocumented in this encounter Additional Health Concerns Infection Onset Date Last Indicated Resolved Time COVID - 19 06/29/2022 06/29/2022 07/09/2022 12:1 6 AM CDT COVID - 19 11/20/2022 11/20/2022 11/24/2022 8:51 AM AUTO BODY TECHNICIAN COVID - 19 12/31/2022 12/31/2022 01/10/2023 12:1 8 AM CDT COVID - 19 Confirmed 12/31/2022 12/31/2022 023 12:17 AM CDT COVID - 19 06/01/2023 06/01/2023 06/01/2023 8:16 AM CDT COVID - 19 11/01/2023 11/01/2023 11/11/2023 12:1 6 AM AUTO BODY TECHNICIAN COVID - 19 06/25/2024 06/25/2024 06/25/2024 6:36 PM CDT Assessment Noted Time PHQ-9 Depression Total Score: 0 11/22/19 10:00 AM AUTO BODY TECHNICIAN documented as of this encounter Care Teams Film Mounter Relationship Specialty Start Date End Date Marco Woods MD #2 [facility] [address] [place] [address] PCP - General Family Medicine 11/22/17 Kirsten Niño MD #[address] [address] Consulting Physician Endocrinology 07/17/22 Chin Burrows MD #2 [facility] [address] [place] [address] Consulting Physician General Surgery 11/22/22 Kelsea Root, RN [place] Agricultural Inspector 06/15/23 08/26/23 Michelle Mendes APRN, STORAGE MANAGEMENT CONSULTANT #2 [facility] [address] [place] [address] Nurse Practitioner Advanced Practice Nurse 08/14/22 Chantelle Nix APRN, STORAGE MANAGEMENT CONSULTANT #2 [place] [address] Nurse Practitioner Advanced Practice Nurse 02/19/24 Analia Meza MD #[address] [phone] Consulting Physician Otolaryngology 05/11/25 documented as of this encounter
--- OUTSIDE RECORDS SUMMARY | 2025-06-09 12:40 | XMS_ITS | Encounter Summary ---
Author Organization [facility] Address [address] [place] [address] Phone Care Team Providers Care Manager Surgical Name Role Phone Marco Woods MD Primary Care Provider Kirsten Niño MD Unavailable Chin Burrows MD Unavailable [phone] Michelle Mendes APRN, BATCH ROLLER OPERATOR Unavailable Chantelle Nix APRN, BATCH ROLLER OPERATOR Unavailable Analia Meza MD Unavailable [phone] Reason for Visit * Reason Comments Medication Refill Encounter Details Date Type Department Care Team (Late st Contact Info) Description 03/11/2024 Refill [facility] - Family Medicine - [place] [address] [place] [address] Marco Woods MD #[address] [address] Medication Refill Social History Tobacco Use Types Packs/Day Years Used Date Smoking Tobacco: Never Smokeless Tobacco: Never Alcohol Use Standard Drinks/Week Comments Not Currently 0 (1 standard drink = 0.6 oz pur e alcohol) [facility] Utilities Answer Date Recorded In the past 12 months has [employer] electric, gas, oil, or water company threatened [...] declined 11/28/2023 How often do you attend adventist or muslim serv ices? Patient declined 11/28/2023 Do you belong to any clubs o r organizations such as adventist groups, unions, fraternal or athletic groups, or [...] Total Score - Questions 1-9 18 10/24 [facility] - Occupational Stress Questionnaire [...] Sex Assigned at Female 11/22/2023 11:58 AM DEPLOYMENT MANAGER Legal Sex Female 11:34 PM CDT Gender Identity Female 11/22/2023 11:58 AM DEPLOYMENT MANAGER Sexual Orientation Not on file Occupation [...] Dept 02/21/24 [facility]/12/24 Office Visit Rebecca Liu CHIP SEPARATOR, BATCH ROLLER OPERATOR [facility] [place] 12/05/23 [facility] 11/20/23 Office Visit Ronald Shaffer APRN, BATCH ROLLER OPERATOR [facility] [place] 10/10/23 Office Visit Rebecca Liu CHIP SEPARATOR, BATCH ROLLER OPERATOR [facility] [place] 08/24/23 Office Visit Ranjit Linder MD [facility] [place] 08/02/23 Office Visit Marco Woods MD [facility] [place] 05/01/23 Office Visit [facility] 04/18/23 Office Visit [facility] 04/03/23 [facility] visits within past 365 days and meeting all other requirements Future Appointments Date Type Provider Dept 03/12/24 Appointment Marco Woods MD [facility] [place] Showing future appointments within next 90 days and meeting all other requirements documented in this encounter Plan of Treatment Upcoming Encounters Date Type Department Care Team (Late st Contact Info) Description 06/30/2025 11:00 AM CDT Office Visit [facility] - Ear, Nose & Throat - [place] #2 [place] [phone] Analia Meza MD #[address] [address] 07/03/2025 5:30 PM CDT [facility]ment [facility] [address] [facility] [place] [address] Analia Meza MD #[address] [address] Discharge Disposition: Discharged to home or Selfcare 07/17/2025 10:30 AM CDT Office Visit [facility] - Pulmonology & Sleep Medicine [facility] #2 [place] [address] Michelle Mendes APRN, BATCH ROLLER OPERATOR #2 [facility] [address] [place] [address] 08/11/2025 9:45 AM CDT Office Visit [facility] Endocrin[facility] - [place] #2 [place] [address] Kirsten Niño MD #2 [facility] [address] [place] [address] documented as of this encounter Visit Diagnoses Not on filedocumented in this encounter Additional Health Concerns Infection Onset Date Last Indicated Resolved Time COVID - 19 06/25/2024 06/25/2024 06/25/2024 6:36 PM CDT Assessment Noted Time PHQ-9 Depression Total Score: 18 024 10:00 AM DEPLOYMENT MANAGER documented as of this encounter Care Teams Manager Surgical Relationship Specialty Start Date End Date Marco Woods MD #2 [facility] [address] [place] [address] PCP - General Family Medicine 11/22/17 Kirsten Niño MD #2 [facility] [address] [place] [address] Consulting Physician Endocrinology 07/17/22 Chin Burrows MD #[address] [place] [address] Consulting Physician General Surgery 11/22/22 Michelle Mendes APRN, DREW #[facility] [address] [place] [address] Nurse Practitioner Advanced Practice Nurse 08/14/22 Chantelle Nix APRN, DREW #2 [place] [address] Nurse Practitioner Advanced Practice Nurse 02/19/24 Analia Meza MD #2 [facility] [address] [place] [phone] Consulting Physician Otolaryngology 05/11/25 documented as of this encounter
--- OUTSIDE RECORDS SUMMARY | 2025-06-09 12:40 | XMS_ITS | Encounter Summary ---
Author Organization [facility] Address [address] [place] [address] Phone Care Team Providers Care Electrical Systems Drafter Name Role Phone Marco Woods MD Primary Care Provider [phone] Kirsten Niño MD Unavailable Chin Burrows MD Unavailable Kelsea Root RN Unavailable Unavailable Michelle Mendes APRN, LIEUTENANT BALLISTICS Unavailable [phone] Chantelle Nix APRN, LIEUTENANT BALLISTICS Unavailable Analia Meza MD Unavailable [phone] Reason for Visit * Reason Comments Medication Refill Encounter Details Date Type Department Care Team (Late st Contact Info) Description 12/16/2022 Refill [facility] [address] [place], [place] [id number] Marco Woods MD #2 [facility] [address] [place] [address] Medication Refill Social History Tobacco Use Types Packs/Day Years Used Date Smoking Tobacco: Never Smokeless Tobacco: Never Alcohol Use Standard Drinks/Week Comments Not Currently 0 (1 standard drink = 0.6 oz pur e alcohol) Sexually Active Control Partners Comments Not Currently Comments No Sex and Gender Information Value Date Recorded Sex Assigned at Female 11/22/2023 11:58 AM STRAW HAT WASHER OPERATOR Legal Sex Female 11:34 PM CDT Gender Identity Female 11/22/2023 11:58 AM STRAW HAT WASHER OPERATOR Sexual Orientation Not on file Occupation Industry Job Start Date Job End Date disabled Not on file Not on file Not on file COVID-19 Exposure Response Date Recorded In the last 10 days, have yo u been in contact with someone who was confirmed or suspected to have Coronavirus/COVID-19? No / Unsure 12/18/2022 9:05 AM STRAW HAT WASHER OPERATOR documented as of this encounter Miscellaneous Notes * Telephone Encounter - Brooklyn Preciado RN - 12/19/2022 9:23 AM CST Duplicate request. W HAT WASHER OPERATOR * Telephone Encounter - Celia Valles RN - 12/18/2022 2:00 PM STRAW HAT WASHER OPERATOR duplicate W HAT WASHER OPERATOR documented in this encounter Plan of Treatment Upcoming Encounters Date Type Department Care Team (Late st Contact Info) Description 06/30/2025 11:00 AM CDT [facility] [place] #2 [facility] [place] [address] Analia Meza MD #[address] [address] 07/03/2025 5:30 PM CDT [facility] [place] [address] Analia Meza MD #[address] [phone] Discharge Disposition: Discharged to home or Selfcare 07/17/2025 10:30 AM CDT [facility] [place] #2 [place] [address] Michelle Mendes, MANAGER CAFE, LIEUTENANT BALLISTICS #2 [facility] [address] [place] [address] 08/11/2025 9:45 AM CDT Office Visit [facility] - Endocrinology [facility] #2 [place] [phone] Kirsten Niño MD #2 [facility] [address] [place] [address] documented as of this encounter Visit Diagnoses Diagnosis Dyspnea, unspecified type documented in this encounter Additional Health Concerns Infection Onset Date Last Indicated Resolved Time COVID - 19 12/31/2022 12/31/2022 01/10/2023 12:1 8 AM CDT COVID - 19 Confirmed 12/31/2022 12/31/2022 023 12:17 AM CDT COVID - 19 06/01/2023 06/01/2023 06/01/2023 8:16 AM CDT COVID - 19 11/01/2023 11/01/2023 11/11/2023 12:1 6 AM STRAW HAT WASHER OPERATOR COVID - 19 06/25/2024 06/25/2024 06/25/2024 6:36 PM CDT Assessment Noted Time PHQ-9 Depression Total Score: 0 11/22/19 18 10:00 AM STRAW HAT WASHER OPERATOR documented as of this encounter Care Teams Electrical Systems Drafter Relationship Specialty Start Date End Date Marco Woods MD #2 [facility] [address] [place] [address] PCP - General Family Medicine 11/22/17 Kirsten Niño MD #2 [facility] [address] [place] [address] Consulting Physician Endocrinology 07/17/22 Chin Burrows MD #2 [facility] [address] [place] [address] Consulting Physician General Surgery 11/22/22 Kelsea Root, RN [place] Measurement Supervisor 06/15/23 08/26/23 Michelle Mendes APRN, LIEUTENANT BALLISTICS #2 [facility] [address] [place] [address] Nurse Practitioner Advanced Practice Nurse 08/14/22 Chantelle Nix APRN, LIEUTENANT BALLISTICS #2 [place] [address] Nurse Practitioner Advanced Practice Nurse 02/19/24 Analia Meza MD #[address] [address] Consulting Physician Otolaryngology 05/11/25 documented as of this encounter
--- OUTSIDE RECORDS SUMMARY | 2025-06-09 12:40 | XMS_ITS | Encounter Summary ---
Author Organization [facility] Address [address] [place] [address] Phone Care Team Providers Care Biodiesel Engineering Manager Name Role Phone Marco Woods MD Primary Care Provider Kirsten Niño MD Unavailable Chin Burrows MD Unavailable [phone] Michelle Mendes SOFTWARE RECRUITER, REPEAT PHOTOCOMPOSING MACHINE OPERATOR Unavailable Chantelle Nix APRN, REPEAT PHOTOCOMPOSING MACHINE OPERATOR Unavailable Analia Meza MD Unavailable [phone] Encounter Details Date Type Department Care Team (Late st Contact Info) Description 02/12/2024 Telephone [facility] [address] [place] [address] Marco Woods MD #2 [facility] [place], [place] [phone] Social History Tobacco Use Types Packs/Day Years Used Date Smoking Tobacco: Never Smokeless Tobacco: Never Alcohol Use Standard Drinks/Week Comments Not Currently 0 (1 standard drink = 0.6 oz pur e alcohol) [facility] Utilities Answer Date Recorded In the [...] declined 11/28/2023 How often do you attend catholic or jain serv ices? Patient declined 11/28/2023 [...] Questions 1-9 18 10/24 [facility] - Occupational Stress Questionnaire Answer [...] a long-term (including now)? Patient declined 11/28/2023 Education Answer Date Recorded What is the highest level of school you have completed or the highest degree you have received? 12th grade 04/03/2023 Sexually Active Control Partners Comments Not Currently Comments No Sex and Gender Information Value Date Recorded Sex Assigned at Female 11/22/2023 11:58 AM PHARMACY TECHNICIAN PROGRAM DIRECTOR Legal Sex Female 11:34 PM CDT Gender Identity Female 11/22/2023 11:58 AM PHARMACY TECHNICIAN PROGRAM DIRECTOR Sexual Orientation Not on file Occupation Industry Job Start Date Job End Date disabled Not on file Not on file Not on file documented as of this encounter Plan of Treatment Upcoming Encounters Date Type Department Care Team (Late st Contact Info) Description 06/30/2025 11:00 AM CDT [facility] Visit [facility]2 [facility] [place] [address] Analia Meza MD #2 [facility] [phone] 07/03/2025 5:30 PM CDT Appointment [facility] [address] [place] [address] Analia Meza MD #2 [facility] [phone] Discharge Disposition: Discharged to home or Selfcare 07/17/2025 10:30 AM CDT [facility] [place] #2 [place] [address] Michelle Mendes, SOFTWARE RECRUITER, REPEAT PHOTOCOMPOSING MACHINE OPERATOR #2 [facility] [address] [place] [address] 08/11/2025 9:45 AM CDT Office Visit [facility] End[facility] - [place] #2 [place] [address] Kirsten Niño MD #[address] [address] documented as of this encounter Visit Diagnoses Not on filedocumented in this encounter Additional Health Concerns Infection Onset Date Last Indicated Resolved Time COVID - 19 06/25/2024 06/25/2024 06/25/2024 6:36 PM CDT Assessment Noted Time PHQ-9 Depression Total Score: 18 024 10:00 AM PHARMACY TECHNICIAN PROGRAM DIRECTOR documented as of this encounter Care Teams Biodiesel Engineering Manager Relationship Specialty Start Date End Date Marco Woods MD #[address] [address] PCP - General Family Medicine 11/22/17 Kirsten Niño MD #[address] [phone] Consulting Physician Endocrinology 07/17/22 Chin Burrows MD #[address] [address] Consulting Physician General Surgery 11/22/22 Michelle Mendes APRN, DREW #[address] [address] Nurse Practitioner Advanced Practice Nurse 08/14/22 Chantelle Nix APRN, DREW #2 [place] [address] Nurse Practitioner Advanced Practice Nurse 02/19/24 Analia Meza MD #2 [facility] [address] [phone] Consulting Physician Otolaryngology 05/11/25 documented as of this encounter
--- OUTSIDE RECORDS SUMMARY | 2025-06-09 12:40 | XMS_ITS | Encounter Summary ---
Author Organization [facility] Address [address] [place] [address] Phone Care Team Providers Care Higher Education Administrator Name Role Phone Marco Woods MD Primary Care Provider Kirsten Niño MD Unavailable Chin Burrows MD Unavailable Michelle Mendes APRN, WETLANDS TECHNICIAN Unavailable Chantelle Nix APRN, WETLANDS TECHNICIAN Unavailable Analia Meza MD Unavailable [phone] Reason for Visit * Reason Comments Medication Refill Encounter Details Date Type Department Care Team (Late st Contact Info) Description 05/10/2024 Refill [facility] - Pulmonology & Sleep Medicine [facility] #2 [place] [phone] Michelle Mendes APRN, WETLANDS TECHNICIAN #[address] [address] Medication Refill Social History Tobacco Use Types Packs/Day Years Used Date Smoking Tobacco: Never Smokeless Tobacco: Never Alcohol Use Standard Drinks/Week Comments Not Currently 0 (1 standard drink = 0.6 oz pur e alcohol) [facility] Utilities Answer Date Recorded In the past 12 months has [employer], gas, oil, or water [employer] threatened to shut off services in your home? Patient declined 11/28/2023 Social Connection and Isolation Panel Answer Date Recorded In a typical week, how many times do you talk on the phone with family, friends, or neighbors? Patient declined 11/28/2023 How often do you get togethe r with friends or relatives? Patient declined 11/28/2023 How often do you attend uatsdin or judaism serv ices? Patient declined 11/28/2023 Do you belong to any clubs o r organizations such as uatsdin groups, unions, fraternal or athletic groups, or [...] Total Score - Questions 1-9 18 10/24 [facility] - Occupational Stress Questionnaire Answer Date Recorded [...] Sex Assigned at Female 11/22/2023 11:58 AM PREPARATION DEPARTMENT SUPERVISOR Legal Sex Female 11:34 PM CDT Gender Identity Female 11/22/2023 11:58 AM PREPARATION DEPARTMENT SUPERVISOR Sexual Orientation Not on file Occupation [...] Description 06/30/2025 11:00 AM CDT [facility] Visit [facility] - [place] #2 [place] [address] Analia Meza MD #2 [facility] [address] [place] [address] 07/03/2025 5:30 PM CD[facility] [address] [place] [address] Analia Meza MD #2 [facility] [address] [place] [address] Discharge Disposition: Discharged to home or Selfcare 07/17/2025 10:30 AM CDT Office [facility] - Pulmonology & Sleep Medicine [facility] #2 [place] [address] Michelle Mendes APRN, WETLANDS TECHNICIAN #2 [facility] [address] [place] [address] 08/11/2025 9:45 AM CDT Office Visit [facility] Medical [facility] - Endocrinology - [place] #2 [place] [address] Kirsten Niño MD #[address] [address] documented as of this encounter Visit Diagnoses Not on filedocumented in this encounter Additional Health Concerns Infection Onset Date Last Indicated Resolved Time COVID - 19 06/25/2024 06/25/2024 06/25/2024 6:36 PM CDT Assessment Noted Time PHQ-9 Depression Total Score: 18 024 10:00 AM PREPARATION DEPARTMENT SUPERVISOR documented as of this encounter Care Teams Higher Education Administrator Relationship Specialty Start Date End Date Marco Woods MD #2 [facility] [address] [place] [address] PCP - General Family Medicine 11/22/17 Kirsten Niño MD #2 [facility] [address] [place] [address] Consulting Physician Endocrinology 07/17/22 Chin Burrows MD #2 [facility] [address] [place] [address] Consulting Physician General Surgery 11/22/22 Michelle Mendes APRN, WETLANDS TECHNICIAN #2 [facility] [address] [place] [address] Nurse Practitioner Advanced Practice Nurse 08/14/22 Chantelle Nix APRN, WETLANDS TECHNICIAN #2 [place] [address] Nurse Practitioner Advanced Practice Nurse 02/19/24 Analia Meza MD #[address] [address] Consulting Physician Otolaryngology 05/11/25 documented as of this encounter
--- OUTSIDE RECORDS SUMMARY | 2025-06-09 12:40 | XMS_ITS | Encounter Summary ---
Author Organization [facility] Address [address] [place] [address] Phone Care Team Providers Care Court Stenographer Name Role Phone Marco Woods MD Primary Care Provider Kirsten Niño MD Unavailable Chin Burrows MD Unavailable Kelsea Root RN Unavailable Unavailable Michelle Mendes APRN, MANAGER PLUMBING Unavailable Chantelle Nix APRN, MANAGER PLUMBING Unavailable Analia Meza MD Unavailable [phone] Reason for Visit * Reason Comments Medication Refill Encounter Details Date Type Department Care Team (Late st Contact Info) Description 08/06/2021 Refill [facility] [address] [place] [address] Marco Woods MD #2 [facility] [place], [place] [phone] Medication Refill Social History Tobacco Use Types Packs/Day Years Used Date Smoking Tobacco: Never Smokeless Tobacco: Former Alcohol Use Standard Drinks/Week Comments Not Currently 0 (1 standard drink = 0.6 oz pur e alcohol) Sexually Active Control Partners Comments Not Currently Comments No Sex and Gender Information Value Date Recorded Sex Assigned at Female 11/22/2023 11:58 AM HOT DIP PLATING SUPERVISOR Legal Sex Female 11:34 PM CDT Gender Identity Female 11/22/2023 11:58 AM HOT DIP PLATING SUPERVISOR Sexual Orientation Not on file Occupation [...] [facility] [place] 12/21/20 Telemedicine Mirtha Steiner APN, MANAGER PLUMBING [facility] [place] 11/09/20 Office Visit Marco Woods MD [facility] 09/06/20 Office Visit [facility] [place] Showing recent visits within past 365 days and meeting all other requirements Future Appointments Date Type Provider Dept 09/28/21 Appointment Marco Woods MD [facility] Showing future appointments within next 90 days and meeting all other requirements documented in this encounter Plan of Treatment Upcoming Encounters Date Type Department Care Team (Late st Contact Info) Description 06/30/2025 11:00 AM CDT [facility] Visit [facility] - [place] #2 [place] [address] Analia Meza MD #[address] [phone] 07/03/2025 5:30 PM CDT Appointment [facility] [address] [place] [address] Analia Meza MD #[address] [phone] Discharge Disposition: Discharged to home or Selfcare 07/17/2025 10:30 AM CDT [facility] - Pulmonology & Sleep Medicine - [place] #2 [place] [address] Michelle Mendes APRN, MANAGER PLUMBING #2 [facility] [address] [place] [address] 08/11/2025 9:45 AM CDT Office Visit [facility] - Endocrinology - [place] #2 [place] [address] Kirsten Niño MD #[address] [place] [address] documented as of this encounter Visit Diagnoses Not on filedocumented in this encounter Additional Health Concerns Infection Onset Date Last Indicated Resolved Time COVID - 19 06/29/2022 06/29/2022 07/09/2022 12:1 6 AM CDT COVID - 19 11/20/2022 11/20/2022 11/24/2022 8:51 AM HOT DIP PLATING SUPERVISOR COVID - 19 12/31/2022 12/31/2022 01/10/2023 12:1 8 AM CDT COVID - 19 Confirmed 12/31/2022 12/31/2022 023 12:17 AM CDT COVID - 19 06/01/2023 06/01/2023 06/01/2023 8:16 AM CDT COVID - 19 11/01/2023 11/01/2023 11/11/2023 12:1 6 AM HOT DIP PLATING SUPERVISOR COVID - 19 06/25/2024 06/25/2024 06/25/2024 6:36 PM CDT Assessment Noted Time PHQ-9 Depression Total Score: 0 11/22/19 10:00 AM HOT DIP PLATING SUPERVISOR documented as of this encounter Care Teams Court Stenographer Relationship Specialty Start Date End Date Marco Woods MD #2 [facility] [address] [place] [address] PCP - General Family Medicine 11/22/17 Kirsten Niño MD #2 [facility] [address] [place] [address] Consulting Physician Endocrinology 07/17/22 Chin Burrows MD #2 [facility] [address] [place] [address] Consulting Physician General Surgery 11/22/22 Kelsea Root, RN [place] Sh[place] 06/15/23 08/26/23 Michelle Mendes, BIOSTATISTICS PROFESSOR, MANAGER PLUMBING #2 [facility] [address] [place] [address] Nurse Practitioner Advanced Practice Nurse 08/14/22 Chantelle Nix APRN, DREW #[address] [place] [address] Nurse Practitioner Advanced Practice Nurse 02/19/24 Analia Meza MD #[address] [place] [address] [address] Consulting Physician Otolaryngology 05/11/25 documented as of this encounter
--- OUTSIDE RECORDS SUMMARY | 2025-06-09 12:40 | XMS_ITS | Encounter Summary ---
Author Organization [facility] Address [address] [place] [address] Phone Care Team Providers Care Marketing Developer Name Role Phone Marco Woods MD Primary Care Provider Kirsten Niño MD Unavailable Chin Burrows MD Unavailable Michelle Mendes INSPECTOR WATER POLLUTION CONTROL, OPERATIONS AND MAINTENANCE SPECIALIST Unavailable Chantelle Nix APRN, OPERATIONS AND MAINTENANCE SPECIALIST Unavailable Analia Meza MD Unavailable [phone] Reason for Visit * Reason Comments Medication Refill Encounter Details Date Type Department Care Team (Late st Contact Info) Description [facility] [address] [place] [address] Kirsten Niño MD #[address] [address] Medication Refill Social History Tobacco [...] Assigned at Female 11/22/2023 11:58 AM ELECTRICIAN LOCOMOTIVE Legal Sex Female 11:34 PM CDT Gender Identity Female 11/22/2023 11:58 AM ELECTRICIAN LOCOMOTIVE Sexual Orientation Not on file Occupation Industry Job Start Date Job End Date disabled Not on file Not on file Not on file documented as of this encounter Miscellaneous Notes * Telephone Encounter - Denise Doe RN - 09/26/2023 8:46 AM ELECTRICIAN LOCOMOTIVE Requested Prescriptions Pending Prescriptions Disp Refills ??? Prolia 60 MG/ML Solution Prefilled Syringe [Pharmacy Med Name: PROLIA 60MG/ML CHARLEEN FOR INJ, 1ML]1 mL 0 Sig: INJECT 1ML SUBCUTANEOUS EVERY 6 MONTHS Next appt: 09/27/2024 TRICIAN LOCOMOTIVE documented in this encounter Plan of Treatment Upcoming Encounters Date Type Department Care Team (Late st Contact Info) Description 06/30/2025 11:00 AM CDT [facility] [place] #2 [place] [address] Analia Meza MD #[address] [phone] 07/03/2025 5:30 PM CD[facility] [place] [address] Analia Meza MD #[address] [address] Discharge Disposition: Discharged to home or Selfcare 07/17/2025 10:30 AM CDT [facility] - Pulmonology & Sleep Medicine [facility] #2 [place] [address] Michelle Mendes APRN, OPERATIONS AND MAINTENANCE SPECIALIST #2 [facility] [address] [place] [address] 08/11/2025 9:45 AM CDT [facility] [place] #2 [facility] [address] Kirsten Niño MD #2 [facility] [address] [place] [address] documented as of this encounter Visit Diagnoses Not on filedocumented in this encounter Additional Health Concerns Infection Onset Date Last Indicated Resolved Time COVID - 11/01/2023 11/01/2023 11/11/2023 12:1 6 AM ELECTRICIAN LOCOMOTIVE COVID - 06/25/2024 06/25/2024 06/25/2024 6:36 PM CDT Assessment Noted Time PHQ-9 Depression Total Score: 0 11/22/19 10:00 AM ELECTRICIAN LOCOMOTIVE documented as of this encounter Care Teams Marketing Developer Relationship Specialty Start Date End Date Marco Woods MD #2 [facility] [address] [place] [address] PCP - General Family Medicine 11/22/17 Kirsten Niño MD #[address] [address] Consulting Physician Endocrinology 07/17/22 Chin Burrows MD #[address] [address] Consulting Physician General Surgery 11/22/22 Michelle Mendes APRN, OPERATIONS AND MAINTENANCE SPECIALIST #2 [facility] [address] [place] [address] Nurse Practitioner Advanced Practice Nurse 08/14/22 Chantelle Nix APRN, DREW #[address] [place] [address] Nurse Practitioner Advanced Practice Nurse 02/19/24 Analia Meza MD #[address] [place] [address] [address] Consulting Physician Otolaryngology 05/11/25 documented as of this encounter
--- OUTSIDE RECORDS SUMMARY | 2025-06-09 12:40 | XMS_ITS | Encounter Summary ---
Author Organization [facility] Address [address] [place] [address] Phone Care Team Providers Care Mechanical Project Manager Name Role Phone Marco Woods MD Primary Care Provider Kirsten Niño MD Unavailable Chin Burrows MD Unavailable Kelsea Root RN Unavailable Unavailable Michelle Mendes APRN, COLLECTION COORDINATOR Unavailable [phone] Chantelle Nix APRN, COLLECTION COORDINATOR Unavailable Analia Meza MD Unavailable [phone] Encounter Details Date Type Department Care Team (Late st Contact Info) Description 11/07/2022 [facility] 1 [place] [address] Chin Burrows MD #[address] [facility] [address] [place] [address] Pre-op testing (Primary Dx) Social History Tobacco Use Types Packs/Day Years Used Date Smoking Tobacco: Never Smokeless Tobacco: Never Alcohol Use Standard Drinks/Week Comments Not Currently 0 (1 standard drink = 0.6 oz pur e alcohol) Sexually Active Control Partners Comments Not Currently Comments No Sex and Gender Information Value Date Recorded Sex Assigned at Female 11/22/2023 11:58 AM ELEMENTARY SCHOOL PRINCIPAL Legal Sex Female 11:34 PM CDT Gender Identity Female 11/22/2023 11:58 AM ELEMENTARY SCHOOL PRINCIPAL Sexual Orientation Not on file Occupation Industry Job Start Date Job End Date disabled Not on file Not on file Not on file COVID-19 Exposure Response Date Recorded In the last 10 days, have yo u been in contact with someone who was confirmed or suspected to have Coronavirus/COVID-19? No / Unsure 11/07/2022 1:33 PM ELEMENTARY SCHOOL PRINCIPAL documented as of this encounter Plan of Treatment Upcoming Encounters Date Type Department Care Team (Late st Contact Info) Description 06/30/2025 11:00 AM CDT [facility] - [facility], Nose & Throat - [place] #2 [place] [phone] Analia Meza MD #[address] [phone] 07/03/2025 5:30 PM CDT [facility] [address] [place] [address] Analia Meza MD #[address] [phone] Discharge Disposition: Discharged to home or Selfcare 07/17/2025 10:30 AM CDT [facility] - [place] #2 [place] [phone] Michelle Mendes APRN, DREW #[address] [facility] [address] [place] [address] 08/11/2025 9:45 AM CDT Office Visit [facility] - Endocrinology - [place] #2 [place] [phone] Kirsten Niño MD #2 [place] [address] [place] [address] documented as of this encounter Results * SARS-COV-2 BY MOLECULAR (11/13/2022 6:21 AM ELEMENTARY SCHOOL PRINCIPAL) SARSCOV2 NOT DETECTED (Referenc e Range for this test is Not Detected) [facility] LEACH ID NOW 11/13/2022 7:17 AM ELEMENTARY SCHOOL PRINCIPAL [facility] Comment:This test was perfor med by a MOLECULAR, NON-PCR method Other NASOPHARYNGEAL STRUCTURE / Unknown Non-Phlebotomy Collection / Unknown 11/13/2022 6:21 AM ELEMENTARY SCHOOL PRINCIPAL 11/13/2022 7:02 AM ELEMENTARY SCHOOL PRINCIPAL Narrative [facility] - 11/13/2022 7:17 AM ELEMENTARY SCHOOL PRINCIPAL This test has been authorized by the [...] information for Clinicians can be found at: https://www.fda.gov/media/757413/download Additional information for Patients can be found at: https://www.fda.gov/media/471701/download Chin Burrows MD MICROBIOLOGY - GENERA L ORDERABLES Final Result [facility] #[address] [place] [address] documented in this encounter Visit Diagnoses Diagnosis Pre-op testing- Primary Preoperative examination, unspecified documented in this encounter Additional Health Concerns Infection Onset Date Last Indicated Resolved Time COVID - 19 11/20/2022 11/20/2022 11/24/2022 8:51 AM ELEMENTARY SCHOOL PRINCIPAL COVID - 19 12/31/2022 12/31/2022 01/10/2023 12:1 8 AM CDT COVID - 19 Confirmed 12/31/2022 12/31/2022 023 12:17 AM CDT COVID - 19 06/01/2023 06/01/2023 06/01/2023 8:16 AM CDT COVID - 19 11/01/2023 11/01/2023 11/11/2023 12:1 6 AM ELEMENTARY SCHOOL PRINCIPAL COVID - 19 06/25/2024 06/25/2024 06/25/2024 6:36 PM CDT Assessment Noted Time PHQ-9 Depression Total Score: 0 11/22/19 10:00 AM ELEMENTARY SCHOOL PRINCIPAL documented as of this encounter Care Teams Mechanical Project Manager Relationship Specialty Start Date End Date Marco Woods MD #[address] [facility] [address] [place] [address] PCP - General Family Medicine 11/22/17 Kirsten Niño MD #[address] [address] Consulting Physician Endocrinology 07/17/22 Chin Burrows MD #[address] [address] Consulting Physician General Surgery 11/22/22 Kelsea Root RN [place] Software Reliability Engineer 06/15/23 08/26/23 Michelle Mendes APRN, COLLECTION COORDINATOR #[address] [facility] [address] [place] [address] Nurse Practitioner Advanced Practice Nurse 08/14/22 Chantelle Nix APRN, COLLECTION COORDINATOR #2 [place] [address] Nurse Practitioner Advanced Practice Nurse 02/19/24 Analia Meza MD #[address] [address] Consulting Physician Otolaryngology 05/11/25 documented as of this encounter
--- OUTSIDE RECORDS SUMMARY | 2025-06-09 12:40 | XMS_ITS | Encounter Summary ---
Author Organization [facility] Address [address] [place] [address] Phone Care Team Providers Care Care Management Coordinator Name Role Phone Marco Woods MD Primary Care Provider [phone] Kirsten Niño MD Unavailable Chin Burrows MD Unavailable Michelle Mendes APRN, PEST CONTROL WORKER HELPER Unavailable Chantelle Nix APRN, PEST CONTROL WORKER HELPER Unavailable Analia Meza MD Unavailable [phone] Reason for Visit * Reason Comments Medication Refill Encounter Details Date Type Department Care Team (Late st Contact Info) Description 01/22/2024 Refill [facility] - Family Medicine - [place] [address] [place] [address] Marco Woods MD #[address] [address] Medication Refill Social History Tobacco Use Types Packs/Day Years Used Date Smoking Tobacco: Never Smokeless Tobacco: Never Alcohol Use Standard Drinks/Week Comments Not Currently 0 (1 standard drink = 0.6 oz pur e alcohol) [facility] Utilities Answer Date Recorded In the past 12 months has independenceIT electric, gas, oil, or water company threatened [...] declined 11/28/2023 How often do you attend moravian or episcopal serv ices? Patient declined 11/28/2023 Do you belong to any clubs o r organizations such as moravian groups, unions, fraternal or athletic groups, or [...] - Questions 1-9 18 10/24 [facility] - Occupational Stress [...] Sex Assigned at Female 11/22/2023 11:58 AM PAINT FORMULATOR Legal Sex Female 11:34 PM CDT Gender Identity Female 11/22/2023 11:58 AM PAINT FORMULATOR Sexual Orientation Not on file Occupation Industry [...] MG Tablet Controlled Release [Pharmacy Med Name: [facility] 300MG TBCR] 56 Tablet 5 Sig: TAKE 1 TABLET BY MOUTH TWICE A DAY Not Delegated - Antimanic Agents Protocol Failed - 01/22/2024 9:25 AM Failed - This refill cannot be delegated Passed - Visit with relevant provider in past 12 months or upcoming 90 days Recent Visits Date Type Provider Dept 12/05/23 Office Visit Marco Woods MD [facility] [place] 11/20/23 Office Visit Ronald Shaffer RADIOLOGY TRANSCRIPTIONIST, PEST CONTROL WORKER HELPER [facility] [place] 10/10/23 Office Visit Rebecca Liu APRN, PEST CONTROL WORKER HELPER [facility] [place] 08/24/23 Office Visit Ranjit Linder MD [facility] [place] 08/02/23 Office Visit Marco Woods MD [facility] [place] 05/01/23 Office Visit Marco Woods MD [facility] [place] 04/18/23 Office Visit Marco Woods MD [facility] [place] 04/03/23 Office Visit Marco Woods MD [facility] [place] 03/12/23 Office Visit Marco Woods MD [facility] [place] 03/05/23 Office Visit Mirtha Steiner APRN, [facility] [place] Showing recent visits within past 365 days and meeting all other requirements Future Appointments Date Type Provider Dept 03/12/24 Appointment [facility] Show[facility] future appointments within next 90 days and meeting all other requirements documented in this encounter Plan of Treatment Upcoming Encounters Date Type Department Care Team (Late st Contact Info) Description 06/30/2025 11:00 AM CDT Office Visit [facility] Medical [facility] - Ear, Nose & Throat - [place] #2 [facility] [place] [address] Analia Meza MD #[address] [address] 07/03/2025 5:[address] [facility] 1 [facility] [place] [address] Analia Meza MD #[address] [address] Discharge Disposition: Discharged to home or Selfcare 07/17/2025 10:30 AM CDT Office Visit [facility] - Pulmonology & Sleep Medicine - [place] [address] [facility] [place] [address] Michelle Mendes APRN, PEST CONTROL WORKER HELPER #2 [facility] [address] [place] [address] 08/11/2025 9:45 AM CDT [facility] Visit [facility] - [facility] - [place] #[address] [place] [facility] [place] [address] Kirsten Niño MD #2 [facility] [address] [place] [address] documented as of this encounter Visit Diagnoses Not on filedocumented in this encounter Additional Health Concerns Infection Onset Date Last Indicated Resolved Time COVID - 19 06/25/2024 06/25/2024 06/25/2024 6:36 PM CDT Assessment Noted Time PHQ-9 Depression Total Score: 18 024 10:00 AM PAINT FORMULATOR documented as of this encounter Care Teams Care Management Coordinator Relationship Specialty Start Date End Date Marco Woods MD #[address] [address] PCP - General Family Medicine 11/22/17 Kirsten Niño MD #[address] [address] Consulting Physician Endocrinology 07/17/22 Chin Burrows MD #[address] [address] Consulting Physician General Surgery 11/22/22 Michelle Mendes APRN, PEST CONTROL WORKER HELPER #[address] [facility] [address] [place] [address] Nurse Practitioner Advanced Practice Nurse 08/14/22 Chantelle Nix APRN, DREW #2 [facility] [place] [phone] Nurse Practitioner Advanced Practice Nurse 02/19/24 Analia Meza MD [facility]2 [facility] [phone] Consulting Physician Otolaryngology 05/11/25 documented as of this encounter
--- OUTSIDE RECORDS SUMMARY | 2025-06-09 12:40 | XMS_ITS | Encounter Summary ---
Author Organization [facility] Address [address] [place] [address] Phone Care Team Providers Care Lettuce Cutter Name Role Phone Marco Woods MD Primary Care Provider Kirsten Niño MD Unavailable Chin Burrows MD Unavailable [phone] Kelsea Root RN Unavailable Unavailable Michelle Mendes APRN, MUD ANALYSIS SUPERVISOR Unavailable [phone] Chantelle Nix APRN, MUD ANALYSIS SUPERVISOR Unavailable Analia Meza MD Unavailable [phone] Reason for Visit * Reason Comments Medication Refill Encounter Details Date Type Department Care Team (Late st Contact Info) Description 10/16/2022 Refill [facility] #[address] [place] [phone] Marco Woods MD [address] [address] Medication Refill Social History Tobacco Use Types Packs/Day Years Used Date Smoking Tobacco: Never Smokeless Tobacco: Never Alcohol Use Standard Drinks/Week Comments Not Currently 0 (1 standard drink = 0.6 oz pur e alcohol) Sexually Active Control Partners Comments Not Currently Comments No Sex and Gender Information Value Date Recorded Sex Assigned at Female 11/22/2023 11:58 AM RECREATIONAL VEHICLE REPAIRER Legal Sex Female 11:34 PM CDT Gender Identity Female 11/22/2023 11:58 AM RECREATIONAL VEHICLE REPAIRER Sexual Orientation Not on file Occupation Industry Job Start Date Job End Date disabled Not on file Not on file Not on file COVID-19 Exposure Response Date Recorded In the last 10 days, have yo u been in contact with someone who was confirmed or suspected to have Coronavirus/COVID-19? No / Unsure 10/11/2022 9:23 AM RECREATIONAL VEHICLE REPAIRER documented as of this encounter Miscellaneous [...] Dept 08/29/22 Office Visit Ronald Shaffer APRN, DREW [facility] [place] 07/12/22 Office Visit Jany Hernandez PAC [facility] [place] 06/23/22 Office Visit Marco Woods MD [facility] [place] 05/19/22 Office Visit Marco Woods MD [facility] [place] 01/10/22 [facility] visits within past 365 days and meeting all other requirements Future Appointments Date Type Provider Dept 10/25/22 Appointment Marco Woods MD [facility] [place] Showing future appointments within next 90 days and meeting all other requirements EATIONAL VEHICLE REPAIRER documented in this encounter Plan of Treatment Upcoming Encounters Date Type Department Care Team (Late st Contact Info) Description 06/30/2025 11:00 AM CDT [facility] Visit [facility] - [facility], [facility]ose & Th[facility]at - [place] #2 [place] [address] Analia Meza MD #[address] [phone] 07/03/2025 5:30 PM CDT [facility] [address] [place] [address] Analia Meza MD #[address] [phone] Discharge Disposition: Discharged to home or Selfcare 07/17/2025 10:30 AM CDT [facility] - [place] #2 [place] [address] Michelle Mendes APRN, MUD ANALYSIS SUPERVISOR #[address] [address] 08/11/2025 9:45 AM CDT [facility] Visit [facility] - Endocrinology - [place] #2 [place] [address] Kirsten Niño MD #[address] [phone] documented as of this encounter Visit Diagnoses Not on filedocumented in this encounter Additional Health Concerns Infection Onset Date Last Indicated Resolved Time COVID - 19 11/20/2022 11/20/2022 11/24/2022 8:51 AM RECREATIONAL VEHICLE REPAIRER COVID - 19 12/31/2022 12/31/2022 01/10/2023 12:1 8 AM CDT COVID - 19 Confirmed 12/31/2022 12/31/2022 023 12:17 AM CDT COVID - 19 06/01/2023 06/01/2023 06/01/2023 8:16 AM CDT COVID - 11/01/2023 11/01/2023 11/11/2023 12:1 6 AM RECREATIONAL VEHICLE REPAIRER COVID - 06/25/2024 06/25/2024 06/25/2024 6:36 PM CDT Assessment Noted Time PHQ-9 Depression Total Score: 0 11/22/19 10:00 AM RECREATIONAL VEHICLE REPAIRER documented as of this encounter Care Teams Lettuce Cutter Relationship Specialty Start Date End Date Marco Woods MD #2 [facility] [place] [address] [place] [address] PCP - General Family Medicine 11/22/17 Kirsten Niño MD #2 [facility] [place] [address] [place] [address] Consulting Physician Endocrinology 07/17/22 Chin Burrows MD #[address] [phone] Consulting Physician General Surgery 11/22/22 Kelsea Root RN [place] Dolphin Researcher 06/15/23 08/26/23 Michelle Mendes APRN, MUD ANALYSIS SUPERVISOR #2 [facility] [place] [address] [place] [address] Nurse Practitioner Advanced Practice Nurse 08/14/22 Chantelle Nix APRN, MUD ANALYSIS SUPERVISOR #2 [place] [address] Nurse Practitioner Advanced Practice Nurse 02/19/24 Analia Meza MD #[address] [phone] Consulting Physician Otolaryngology 05/11/25 documented as of this encounter
--- OUTSIDE RECORDS SUMMARY | 2025-06-09 12:40 | XMS_ITS | Encounter Summary ---
Author Organization [facility] Address [address] [place] [address] Phone Care Team Providers Care Straightedge Machine Operator Helper Name Role Phone Marco Woods MD Primary Care Provider Kirsten Niño MD Unavailable Chin Burrows MD Unavailable Kelsea Root RN Unavailable Unavailable Michelle Mendes APRN, COPY CHIEF Unavailable Chantelle Nix APRN, COPY CHIEF Unavailable Analia Meza MD Unavailable [phone] Reason for Visit * Reason Comments Medication Refill Encounter Details Date Type Department Care Team (Late st Contact Info) Description 04/25/2021 Refill [facility] [address] [place] [address] Mirtha Steiner APRN, COPY CHIEF #2 [facility] [address] Medication Refill Social History Tobacco Use Types Packs/Day Years Used Date Smoking Tobacco: Never Smokeless Tobacco: Former Alcohol Use Standard Drinks/Week Comments Not Currently 0 (1 standard drink = 0.6 oz pur e alcohol) Sexually Active Control Partners Comments Not Currently Comments No Sex and Gender Information Value Date Recorded Sex Assigned at Female 11/22/2023 11:58 AM COKE WORKER Legal Sex Female 11:34 PM CDT Gender Identity Female 11/22/2023 11:58 AM COKE WORKER Sexual Orientation Not on file Occupation [...] - Family Medicine - Mirtha Haq APN, COPY CHIEF 5 months ago Asthma, unspecified asthma severity, unspecified whether complicated, unspecified whether persistent [facility] - [facility] Medicine - [place] Marco Woods MD Upcoming Appointments Future Appointments In 2 months Marco oWods MD [facility] Medical [facility] - Family Medicine - [place], [facility] In 2 months Kirsten Niño MD [facility] Endocrinology - [facility] In 3 months Michelle Mendes APN, COPY CHIEF [facility] Medical [facility] - Pulmonology & Sleep Medicine - [facility] ELECTRICAL CONTROLS DESIGNER - Recent and Past Visits Recent Visits Date Type Provider Dept 03/25/21 Office Visit [facility] [place] 02/22/21 Office Visit Marco Woods MD [facility] [place] 02/07/21 Office Visit Marco Woods MD [facility] [place] 12/21/20 Telemedicine Mirtha Steiner APN, COPY CHIEF [facility] 11/09/20 Office Visit Marco Woods MD [facility] [place] 09/06/20 Office Visit Marco Woods MD [facility] [place] 06/09/20 Office Visit Marco Woods MD [facility] [place] 04/27/20 Office Visit Marco Woods MD [facility] Showing recent visits within past 460 days with a meds authorizing provider and meeting all other requirements Future Appointments Date Type Provider Dept 06/28/21 Appointment [facility] Show[facility] future appointments within next 90 days with a meds authorizing provider and meeting all other requirements documented in this encounter Plan of Treatment Upcoming Encounters Date Type Department Care Team (Late st Contact Info) Description 06/30/2025 11:00 AM CDT Office Visit [facility] Medical [facility] - Ear, Nose & Throat [facility] #[address] [place] [address] Analia Meza MD #2 [place] [address] [place] [address] 07/03/2025 5:30 PM CDT Appointment [facility] [address] [place] [address] Analia Meza MD #2 [facility] [address] [place] [address] Discharge Disposition: Discharged to home or Selfcare 07/17/2025 10:30 AM CDT Office Visit [facility] Medical [facility] - Pulmonology & Sleep Medicine - [place] #2 [place] [address] Michelle Mendes APRN, COPY CHIEF #2 [facility] [address] [place] [address] 08/11/2025 9:45 AM CDT Office Visit [facility] Group - Endocrinology - [place] #2 [place] [address] Kirsten Niño MD #2 [facility] [address] [place] [address] documented as of this encounter Visit Diagnoses Not on filedocumented in this encounter Additional Health Concerns Infection Onset Date Last Indicated Resolved Time COVID - 19 06/29/2022 06/29/2022 07/09/2022 12:1 6 AM CDT COVID - 19 11/20/2022 11/20/2022 11/24/2022 8:51 AM COKE WORKER COVID - 19 12/31/2022 12/31/2022 01/10/2023 12:1 8 AM CDT COVID - 19 Confirmed 12/31/2022 12/31/2022 023 12:17 AM CDT COVID - 19 06/01/2023 06/01/2023 06/01/2023 8:16 AM CDT COVID - 19 11/01/2023 11/01/2023 11/11/2023 12:1 6 AM COKE WORKER COVID - 19 06/25/2024 06/25/2024 06/25/2024 6:36 PM CDT Assessment Noted Time PHQ-9 Depression Total Score: 0 11/22/19 10:00 AM COKE WORKER documented as of this encounter Care Teams Straightedge Machine Operator Helper Relationship Specialty Start Date End Date Marco Woods MD #2 [facility] [address] [place] [address] PCP - General Family Medicine 11/22/17 Kirsten Niño MD #2 [facility] [address] [place] [address] Consulting Physician Endocrinology 07/17/22 Chin Burrows MD #[address] [phone] Consulting Physician General Surgery 11/22/22 Kelsea Root RN [place] Cloth Napping Supervisor 06/15/23 08/26/23 Michelle Mendes APRN, COPY CHIEF #2 [facility] [address] [place] [address] Nurse Practitioner Advanced Practice Nurse 08/14/22 Chantelle Nix APRN, COPY CHIEF #2 [place] [address] Nurse Practitioner Advanced Practice Nurse 02/19/24 Analia Meza MD #[address] [phone] Consulting Physician Otolaryngology 05/11/25 documented as of this encounter
--- OUTSIDE RECORDS SUMMARY | 2025-06-09 12:40 | XMS_ITS | Encounter Summary ---
Author Organization [facility] Address [address] [place] [address] Phone Care Team Providers Care Director Industrial Name Role Phone Marco Woods MD Primary Care Provider Kirsten Niño MD Unavailable Chin Burrows MD Unavailable Michelle Mendes APRN, BREEDING MANAGER Unavailable Chantelle Nix APRN, BREEDING MANAGER Unavailable Analia Meza MD Unavailable [phone] Reason for Visit * Reason Comments Medication Refill Encounter Details Date Type Department Care Team (Late st Contact Info) Description 12/26/2023 Refill [facility] Medical Group - Family Medicine - [place] [address] [place] [address] Marco Woods MD [address] [address] Medication Refill Social History Tobacco Use Types Packs/Day Years Used Date Smoking Tobacco: Never Smokeless Tobacco: Never Alcohol Use Standard Drinks/Week Comments Not Currently 0 (1 standard drink = 0.6 oz pur e alcohol) [facility] Utilities Answer Date Recorded In the past 12 months has [employer] electric, gas, oil, or water company threatened [...] declined 11/28/2023 How often do you attend congregation or holiness serv ices? Patient declined 11/28/2023 [...] Questions 1-9 18 10/24 [facility] - Occupational Stress Questionnaire [...] Assigned at Female 11/22/2023 11:58 AM CLINICAL RESEARCH NURSE COORDINATOR Legal Sex Female 11:34 PM CDT Gender Identity Female 11/22/2023 11:58 AM CLINICAL RESEARCH NURSE COORDINATOR Sexual Orientation Not on file Occupation Industry Job Start Date Job End Date disabled Not on file Not on file Not on file documented as of this encounter Miscellaneous Notes * Telephone Encounter - Amada Orozco RN - 12/27/2023 11:05 AM CST Pt should be getting this from psych. Dr Galeana is a psychiatrist. ICAL RESEARCH NURSE COORDINATOR * Telephone Encounter - Amada Orozco RN - 12/27/2023 11:02 AM CST Images from the original note were not included. [place] [employer] Dispensed Days Supply Quantity Provider Pharmacy LITHIUM CARBONATE ER 300 MG TBCR 11/29/2023 28 56 Tablet Maria Antonia Galeana MD [facility] -Alt... LITHIUM CARBONATE ER 300 MG TBCR 11/06/2023 28 56 Tablet Maria Antonia Galeana MD [facility] -Alt... ICAL RESEARCH NURSE COORDINATOR documented in this encounter Plan of Treatment Upcoming Encounters Date Type Department Care Team (Late st Contact Info) Description 06/30/2025 11:00 AM CDT [facility] - [facility] Nose [facility] Throat - [place] #2 [place] [address] Analia Meza MD #[address] [phone] 07/03/2025 5:30 PM CD[facility] [address] [place] [address] Analia Meza MD #[address] [phone] Discharge Disposition: Discharged to home or Selfcare 07/17/2025 10:30 AM CDT [facility] & Sleep [facility] - [place] [address] [place] [address] Michelle Mendes APRN, DREW #[address] [facility] [address] [place] [address] 08/11/2025 9:45 AM CDT Office Visit [facility] - Endocrinology - [place] [address] [place] [address] Kirsten Niño MD #[address] [place] [address] documented as of this encounter Visit Diagnoses Not on filedocumented in this encounter Additional Health Concerns Infection Onset Date Last Indicated Resolved Time COVID - 19 06/25/2024 06/25/2024 06/25/2024 6:36 PM CDT Assessment Noted Time PHQ-9 Depression Total Score: 18 024 10:00 AM CLINICAL RESEARCH NURSE COORDINATOR documented as of this encounter Care Teams Director Industrial Relationship Specialty Start Date End Date Marco Woods MD [facility] [address] [place] [address] PCP - General Family Medicine 11/22/17 Kirsten Niño MD #[address] [facility] [address] [place] [address] Consulting Physician Endocrinology 07/17/22 Chin Burrows MD #[address] [address] Consulting Physician General Surgery 11/22/22 Michelle Mendes APRN, BREEDING MANAGER #[address] [facility] [address] [place] [address] Nurse Practitioner Advanced Practice Nurse 08/14/22 Chantelle Nix APRN, BREEDING MANAGER #2 [place] [address] Nurse Practitioner Advanced Practice Nurse 02/19/24 Analia Meza MD #2 [facility] [address] [place] [address] Consulting Physician Otolaryngology 05/11/25 documented as of this encounter
--- OUTSIDE RECORDS SUMMARY | 2025-06-09 12:40 | XMS_ITS | Encounter Summary ---
Author Organization [facility] Address [address] [place] [address] Phone Care Team Providers Care Upholstery Covers Inspector Name Role Phone Marco Woods MD Primary Care Provider Kirsten Niño MD Unavailable Chin Burrows MD Unavailable [phone] Kelsea Root RN Unavailable Unavailable Michelle Mendes APRN, BUFFING WHEEL FORMER MACHINE Unavailable Chantelle Nix APRN, BUFFING WHEEL FORMER MACHINE Unavailable Analia Meza MD Unavailable [phone] Reason for Visit * Reason Comments Medication Refill Encounter Details Date Type Department Care Team (Late st Contact Info) Description 07/21/2023 Refill [facility] - Family Medicine [facility] #[address] [place] [phone] Marco Woods MD #[address] [facility] [address] [address] Medication Refill Social History Tobacco Use Types [...] Sex Assigned at Female 11/22/2023 11:58 AM AGILE DEVELOPER Legal Sex Female 11:34 PM CDT Gender Identity Female 11/22/2023 11:58 AM AGILE DEVELOPER Sexual Orientation Not on file Occupation [...] Medical Group - Ear, Nose & Throat [facility] #2 [place] [address] Analia Meza MD #[address] [address] 07/03/2025 5:30 PM CDT Appointment [facility] [address] [place] [address] Analia Meza MD #[address] [address] Discharge Disposition: Discharged to home or Selfcare 07/17/2025 10:30 AM CDT Office Visit [facility] - Pulmonology & Sleep Medicine - [place] #2 [facility] [place] [address] Michelle Mendes APRN, BUFFING WHEEL FORMER MACHINE #2 [facility] [address] [place] [address] 08/11/2025 9:45 AM CDT Office Visit [facility] Medical Group - Endocrinology - [place] #2 [facility] [place] [address] Kirsten Niño MD #2 [facility] [address] [place] [address] documented as of this encounter Visit Diagnoses Not on filedocumented in this encounter Additional Health Concerns Infection Onset Date Last Indicated Resolved Time COVID - 19 11/01/2023 11/01/2023 11/11/2023 12:1 6 AM AGILE DEVELOPER COVID - 19 06/25/2024 06/25/2024 06/25/2024 6:36 PM CDT Assessment Noted Time PHQ-9 Depression Total Score: 0 11/22/19 10:00 AM AGILE DEVELOPER documented as of this encounter Care Teams Upholstery Covers Inspector Relationship Specialty Start Date End Date Marco Woods MD #2 [facility] [address] [place] [address] PCP - General Family Medicine 11/22/17 Kirsten Nioñ MD #2 [facility] [address] [place] [address] Consulting Physician Endocrinology 07/17/22 Chin Burrows MD #2 [facility] [address] [place] [address] Consulting Physician General Surgery 11/22/22 Kelsea Root RN [place] Tie Carrier 06/15/23 08/26/23 Michelle Mendes APRN, BUFFING WHEEL FORMER MACHINE #[address] [place] [facility] [address] [place] [address] Nurse Practitioner Advanced Practice Nurse 08/14/22 Chantelle Nix APRN, BUFFING WHEEL FORMER MACHINE #2 [facility] [place] [address] Nurse Practitioner Advanced Practice Nurse 02/19/24 Analia Meza MD #2 [facility] [facility] [address] [place] [address] Consulting Physician Otolaryngology 05/11/25 documented as of this encounter
--- OUTSIDE RECORDS SUMMARY | 2025-06-09 12:40 | XMS_ITS | Encounter Summary ---
Author Organization [facility] Address [address] [place] [address] Phone Care Team Providers Care Spray Maker Name Role Phone Marco Woods MD Primary Care Provider Kirsten Niño MD Unavailable Chin Burrows MD Unavailable Kelsea Root RN Unavailable Unavailable Michelle Mendes APRN, DIRECTOR OF ACQUISITIONS Unavailable Chantelle Nix APRN, DIRECTOR OF ACQUISITIONS Unavailable Analia Meza MD Unavailable [phone] Reason for Visit * Reason Onset Date Comments Medication Management 11/26/2022 Would like pain medication Encounter Details Date Type Department Care Team (Late st Contact Info) Description 11/26/2022 [facility] [address] [place] [address] Marco Woods MD #2 [place] [address] Medication Management (Would like pain medication) Social History Tobacco Use Types Packs/Day Years Used Date Smoking Tobacco: Never Smokeless Tobacco: Never Alcohol Use Standard Drinks/Week Comments Not Currently 0 (1 standard drink = 0.6 oz pur e alcohol) Sexually Active Control Partners Comments Not Currently Comments No Sex and Gender Information Value Date Recorded Sex Assigned at Female 11/22/2023 11:58 AM PETROLEUM INSPECTOR SUPERVISOR Legal Sex Female 11:34 PM CDT Gender Identity Female 11/22/2023 11:58 AM PETROLEUM INSPECTOR SUPERVISOR Sexual Orientation Not on file Occupation Industry Job Start Date Job End Date disabled Not on file Not on file Not on file COVID-19 Exposure Response Date Recorded In the last 10 days, have yo u been in contact with someone who was confirmed or suspected to have Coronavirus/COVID-19? No / Unsure 11/29/2022 3:20 PM PETROLEUM INSPECTOR SUPERVISOR documented as of this encounter Miscellaneous [...] before nurse could obtain any further information. OLEUM INSPECTOR SUPERVISOR documented in this encounter Plan of Treatment Upcoming Encounters Date Type Department Care Team (Late st Contact Info) Description 06/30/2025 11:00 AM CDT [facility] Visit [facility]at [facility] #2 [facility] [place] [address] Analia Meza MD #[address] [address] 07/03/2025 5:30 PM CDT [facility] [address] [facility] [place] [address] Analia Meza MD #2 [facility] [address] [address] Discharge Disposition: Discharged to home or Selfcare 07/17/2025 10:30 AM CDT [facility] Sleep [facility] - [place] #2 [place] [address] Michelle Mendes APRN, DIRECTOR OF ACQUISITIONS #2 [facility] [address] [place] [address] 08/11/2025 9:45 AM CDT Office Visit [facility] Medical Group - Endocrinology - [place] #2 [facility] [address] Kirsten Niño MD #2 [facility] [address] [place] [address] documented as of this encounter Visit Diagnoses Not on filedocumented in this encounter Additional Health Concerns Infection Onset Date Last Indicated Resolved Time COVID - 19 12/31/2022 12/31/2022 01/10/2023 12:1 8 AM CDT COVID - 19 Confirmed 12/31/2022 12/31/2022 023 12:17 AM CDT COVID - 19 06/01/2023 06/01/2023 06/01/2023 8:16 AM CDT COVID - 19 11/01/2023 11/01/2023 11/11/2023 12:1 6 AM PETROLEUM INSPECTOR SUPERVISOR COVID - 19 06/25/2024 06/25/2024 06/25/2024 6:36 PM CDT Assessment Noted Time PHQ-9 Depression Total Score: 0 11/22/19 18 10:00 AM PETROLEUM INSPECTOR SUPERVISOR documented as of this encounter Care Teams Spray Maker Relationship Specialty Start Date End Date Marco Woods MD #2 [facility] [address] [place] [address] PCP - General Family Medicine 11/22/17 Kirsten Niño MD #2 [facility] [address] [place] [address] Consulting Physician Endocrinology 07/17/22 Chin Burrows MD #[address] [phone] Consulting Physician General Surgery 11/22/22 Kelsea Root RN [place] Online Communications Specialist 06/15/23 08/26/23 Michelle Mendes APRN, DIRECTOR OF ACQUISITIONS #[address] [address] Nurse Practitioner Advanced Practice Nurse 08/14/22 Chantelle Nix APRN, DIRECTOR OF ACQUISITIONS #2 [place] [address] Nurse Practitioner Advanced Practice Nurse 02/19/24 Analia Meza MD #[address] [phone] Consulting Physician Otolaryngology 05/11/25 documented as of this encounter
--- OUTSIDE RECORDS SUMMARY | 2025-06-09 12:40 | XMS_ITS | Encounter Summary ---
Author Organization [facility] Address [address] [place] [address] Phone Care Team Providers Care Jig Grinder Set Up Operator Name Role Phone Marco Woods MD Primary Care Provider Kirsten Niño MD Unavailable Chin Burrows MD Unavailable [phone] Michelle Mendes APRN, NEPHROLOGIST Unavailable Chantelle Nix APRN, NEPHROLOGIST Unavailable Analia Meza MD Unavailable [phone] Reason for Visit * Reason Comments Medication Refill Encounter Details Date Type Department Care Team (Late st Contact Info) Description 04/04/2024 Refill [facility] Medical Group - Family Medicine - [place] [address] [place] [address] Marco Woods MD [address] [address] Medication Refill Social History Tobacco Use Types Packs/Day Years Used Date Smoking Tobacco: Never Smokeless Tobacco: Never Alcohol Use Standard Drinks/Week Comments Not Currently 0 (1 standard drink = 0.6 oz pur e alcohol) [facility] Utilities Answer Date Recorded In the past 12 months has [employer] electric, gas, oil, or water company threatened [...] How often do you attend episcopalian or mandaen serv ices? Patient declined 11/28/2023 Do you [...] Score - Questions 1-9 18 10/24 [facility] - Occupational Stress Questionnaire Answer [...] Sex Assigned at Female 11/22/2023 11:58 AM DIE TROUBLE SHOOTER Legal Sex Female 11:34 PM CDT Gender Identity Female 11/22/2023 11:58 AM DIE TROUBLE SHOOTER Sexual Orientation Not on file Occupation Industry [...] Dept 03/27/24 Office Visit Mirtha Steiner APRN, NEPHROLOGIST [facility] [place] 03/12/24 Office Visit Marco Woods MD [facility] [place] 02/21/24 Office Visit Amor Pitt MD [facility] [place] 02/12/24 Office Visit Rebecca Liu, EDGING MACHINE FEEDER, NEPHROLOGIST [facility] [place] 12/05/23 Office Visit Marco Woods MD [facility] [place] 11/20/23 Office Visit Ronald Shaffer EDGING MACHINE FEEDER, NEPHROLOGIST [facility] [place] 10/10/23 Office Visit Rebecca Liu EDGING MACHINE FEEDER, NEPHROLOGIST [facility] [place] 08/24/23 [facility] Office Visit Marco Woods MD [facility] [place] 05/01/23 Office Visit Marco Woods [...] Group - Ear, Nose & Throat - [place] #2 [place] [address] Analia Meza MD #[address] [address] 07/03/2025 5:30 PM CDT [facility] [address] [place] [address] Analia Meza MD #[address] [address] Discharge Disposition: Discharged to home or Selfcare 07/17/2025 10:30 AM CDT [facility] - Pulmonology & Sleep Medicine - [place] #2 [place] [address] Michelle Mendes APRN, NEPHROLOGIST #2 [facility] [address] [place] [address] 08/11/2025 9:45 AM CDT Office Visit [facility] Medical Group - Endocrinology - [place] #2 [facility] [place] [address] Kirsten Niño MD #[address] [address] documented as of this encounter Visit Diagnoses Not on filedocumented in this encounter Additional Health Concerns Infection Onset Date Last Indicated Resolved Time COVID - 19 06/25/2024 06/25/2024 06/25/2024 6:36 PM CDT Assessment Noted Time PHQ-9 Depression Total Score: 18 024 10:00 AM DIE TROUBLE SHOOTER documented as of this encounter Care Teams Jig Grinder Set Up Operator Relationship Specialty Start Date End Date Marco Woods MD #[address] [address] PCP - General Family Medicine 11/22/17 Kirsten Niño MD #[address] [address] Consulting Physician Endocrinology 07/17/22 Chin Burrows MD #[address] [address] Consulting Physician General Surgery 11/22/22 Michelle Mendes APRN, NEPHROLOGIST #2 [facility] [address] [place] [address] Nurse Practitioner Advanced Practice Nurse 08/14/22 Chantelle Nix APRN, DREW #[address] [place] [address] Nurse Practitioner Advanced Practice Nurse 02/19/24 Analia Meza MD [address] [facility] [address] [address] Consulting Physician Otolaryngology 05/11/25 documented as of this encounter
--- OUTSIDE RECORDS SUMMARY | 2025-06-09 12:40 | XMS_ITS | Encounter Summary ---
Author Organization [facility] Address [address] [place] [address] Phone Care Team Providers Care Spinner Operator Name Role Phone Marco Woods MD Primary Care Provider Kirsten Niño MD Unavailable Chin Burrows MD Unavailable Michelle Mendes [employer]LECT[employer]ODUCTS SALES ENGINEER, VENEER DRIER Unavailable Chantelle Nix APRN, VENEER DRIER Unavailable Analia Meza MD Unavailable [phone] Encounter Details Date Type Department Care Team (Late st Contact Info) Description 06/08/2025 Telephone [facility] - [facility], Nose & Throat - [place] #[address] [place] [address] Analia Meza MD #2 [place] [address] [address] Social History Tobacco Use Types Packs/Day Years Used Date Smoking Tobacco: Never Smokeless Tobacco: Never Alcohol Use Standard Drinks/Week Comments Not Currently 0 (1 standard drink = 0.6 oz pur e alcohol) [facility] Utilities Answer Date Recorded In the past 12 months has [employer] electric, gas, oil, or water company threatened [...] declined 06/25/2024 How often do you attend scientologist or latter-day serv ices? Patient declined 06/25/2024 Do you belong to any clubs o r organizations such as scientologist groups, unions, fraternal or athletic groups, or [...] 10/24 [facility] - Occupational Stress Questionnaire Answer [...] any time in the past 12 m [facility], were you homeless or living [...] Sex Assigned at Female 11/22/2023 11:58 AM HIDE SHAKER Legal Sex Female 11:34 PM CDT Gender Identity Female 11/22/2023 11:58 AM HIDE SHAKER Sexual Orientation Not on file Occupation Industry Job Start Date Job End Date disabled Not on file Not on file Not on file documented as of this encounter Miscellaneous Notes * Telephone Encounter - Rebekah Enciso RN - 06/08/2025 1:49 PM CDT Patient states she continues to have worsening mucus and cannot do anything without having to stop and blow her nose. She stopped the Flonase since she felt it was not helping her symptoms. She has acouple more days of the antibiotics prescribed by Dr. Meza. Her CT Sinuses is scheduled 07/03/2025 and she was told there were no sooner appointments. She states she has been having fever, chills, and body aches. She does not have a thermometer, so is unable to tell RN what her temperature has been. She has been taking 4 Tylenol extra strength every 6 hours. The Tylenol has helped with body aches, but other symptoms remain per the patient. Patient was taken off tramadol last by her PCP. She is seeing pain management for hip and spine pain. She notes her air conditioning/heater has not been cleaned for 2 years in her apartment building and is questioning if that could be causing some of her symptoms. Please advise. documented in this encounter Plan of Treatment Upcoming Encounters Date Type Department Care Team (Late st Contact Info) Description 06/30/2025 11:00 AM CDT Office Visit [facility] - Ear, Nose & Throat - [place] #2 [place] [address] Analia Meza MD #[address] [address] 07/03/2025 5:30 PM CD[facility] [address] [place] [address] Analia Meza MD #[address] [address] Discharge Disposition: Discharged to home or Selfcare 07/17/2025 10:30 AM CDT Office Visit [facility] - [facility]monology & [facility] #2 [place] [address] Michelle Mendes APRN, VENEER DRIER #[address] [place] [address] 08/11/2025 9:45 AM CDT [facility] [place] [address] Kirsten Niño MD #2 [facility] [address] [place] [address] documented as of this encounter Visit Diagnoses Not on filedocumented in this encounter Additional Health Concerns Assessment Noted Time PHQ-9 Depression Total Score: 18 024 10:00 AM HIDE SHAKER documented as of this encounter Care Teams Spinner Operator Relationship Specialty Start Date End Date Marco Woods MD #[address] [address] PCP - General Family Medicine 11/22/17 Kirsten Niño MD #[address] [address] Consulting Physician Endocrinology 07/17/22 Chin Burrows MD #[address] [address] Consulting Physician General Surgery 11/22/22 Michelle Mendes APRN, VENEER DRIER #2 [facility] [address] [place] [address] Nurse Practitioner Advanced Practice Nurse 08/14/22 Chantelle Nix APRN, VENEER DRIER #2 [place] [address] Nurse Practitioner Advanced Practice Nurse 02/19/24 Analia Meza MD #2 [facility] [address] [address] Consulting Physician Otolaryngology 05/11/25 documented as of this encounter
--- OUTSIDE RECORDS SUMMARY | 2025-06-09 12:40 | XMS_ITS | Encounter Summary ---
Author Organization [facility] Address [address] [place] [address] Phone Care Team Providers Care Commercial Singer Name Role Phone Marco Woods MD Primary Care Provider [phone] Kirsten Niño MD Unavailable Chin Burrows MD Unavailable [phone] Michelle Mendes APRN, SANITATION ASSOCIATE Unavailable Chantelle Nix APRN, SANITATION ASSOCIATE Unavailable Analia Meza MD Unavailable [phone] Reason for Visit * Reason Comments Medication Refill Encounter Details Date Type Department Care Team (Late st Contact Info) Description 03/18/2024 Refill [facility] Medical Group - Family Medicine - [place] [address] [place] [address] Marco Woods MD [address] [address] Medication Refill Social History Tobacco Use Types Packs/Day Years Used Date Smoking Tobacco: Never Smokeless Tobacco: Never Alcohol Use Standard Drinks/Week Comments Not Currently 0 (1 standard drink = 0.6 oz pur e alcohol) [facility] Utilities Answer Date Recorded In the past 12 months has [employer] electric, gas, oil, or water company threatened [...] declined 11/28/2023 How often do you attend jainism or synagogue serv ices? Patient declined 11/28/2023 Do you [...] Total Score - Questions 1-9 18 10/24 [facility] - Occupational Stress Questionnaire Answer [...] Sex Assigned at Female 11/22/2023 11:58 AM CORPORATE TECHNICAL RECRUITER Legal Sex Female 11:34 PM CDT Gender Identity Female 11/22/2023 11:58 AM CORPORATE TECHNICAL RECRUITER Sexual Orientation Not on file Occupation Industry [...] Dept 03/12/24 Office Visit Marco Woods MD [facility] [place] 02/21/24 Office Visit Amor Pitt [facility] [place] 02/12/24 Office Visit Rebecca Liu APRN, SANITATION ASSOCIATE [facility] [place] 12/05/23 Office Visit Marco Woods MD [facility] [place] 11/20/23 Office Visit Ronald Shaffer, MADDY, SANITATION ASSOCIATE [facility] [place] 10/10/23 Office Visit Rebecca Liu APRN, [facility] [place] 08/24/23 Office Visit Ranjit Linder MD [facility] [place] 08/02/23 Office Visit Marco Woods MD [facility] [place] 05/01/23 [facility] 04/[facility]23 [facility] recent visits within past 365 days and meeting all other requirements Future Appointments Date Type Provider Dept 04/09/24 Appointment Marco Woods MD [facility] [place] Showing future appointments within next 90 days and meeting all other requirements * Telephone Encounter - Amada Orozco RN - 03/19/2024 9:39 AM CDT Images from the original note were not included. Dexlansoprazole Dispensed Days Supply Quantity Provider Pharmacy DEXLANSOPRAZOLE 60 MG CPDR 02/21/2024 28 28 Capsule Maria Antonia Galeana MD [facility]... DEXLANSOPRAZOLE 60 MG CPDR 01/29/2024 28 28 Capsule Maria Antonia Galeana MD [facility]. documented in this encounter Plan of Treatment Upcoming Encounters Date Type Department Care Team (Late st Contact Info) Description 06/30/2025 11:00 AM CDT [facility] - [facility]ose [facility] Th[facility]at - [place] [address] [place] [address] Analia Meza MD [address] [facility] [address] [address] [place] [address] 07/03/2025 5:30 PM CDT [facility] [address] [place] [phone] Analia Meza MD #2 [facility] [address] [place] [address] Discharge Disposition: Discharged to home or Selfcare 07/17/2025 10:30 AM CDT Office Visit [facility] - Pulmonology & Sleep Medicine - [place] [address] [place] [address] Michelle Mendes APRN, SANITATION ASSOCIATE #2 [facility] [address] [place] [address] 08/11/2025 9:45 AM CDT Office Visit [facility] Medical [facility] - Endocrinology - [place] [address]2 [place] [address] Kirsten Nñio MD #[address] [address] documented as of this encounter Visit Diagnoses Not on filedocumented in this encounter Additional Health Concerns Infection Onset Date Last Indicated Resolved Time COVID - 19 06/25/2024 06/25/2024 06/25/2024 6:36 PM CDT Assessment Noted Time PHQ-9 Depression Total Score: 18 024 10:00 AM CORPORATE TECHNICAL RECRUITER documented as of this encounter Care Teams Commercial Singer Relationship Specialty Start Date End Date Marco Woods MD #2 [facility] [address] [place] [address] PCP - General Family Medicine 11/22/17 Kirsten Niño MD #2 [facility] [address] [place] [address] Consulting Physician Endocrinology 07/17/22 Chin Burrows MD #2 [facility] [address] [place] [address] Consulting Physician General Surgery 11/22/22 Michelle Mendes APRN, SANITATION ASSOCIATE #2 [facility] [address] [place] [address] Nurse Practitioner Advanced Practice Nurse 08/14/22 Chantelle Nix APRN, SANITATION ASSOCIATE #2 [place] [address] Nurse Practitioner Advanced Practice Nurse 02/19/24 Analia Meza MD #[address] [address] Consulting Physician Otolaryngology 05/11/25 documented as of this encounter
--- OUTSIDE RECORDS SUMMARY | 2025-06-09 12:40 | XMS_ITS | Encounter Summary ---
Author Organization [facility] Address [address] [place] [address] Phone Care Team Providers Care Physician Compensation Analyst Name Role Phone Marco Woods MD Primary Care Provider [phone] Kirsten Niño MD Unavailable Chin Burrows MD Unavailable Michelle Mendes DRY ICE MACHINE OPERATOR, KILN MECHANIC Unavailable Chantelle Nix DRY ICE MACHINE OPERATOR, KILN MECHANIC Unavailable Analia Meza MD Unavailable [phone] Reason for Visit * Reason Onset Date Comments Advice Only 12/01/2024 Encounter Details Date Type Department Care Team (Late st Contact Info) Description 12/01/2024 Telephone [facility] [address] [place] [address] Marco Woods MD #2 [facility] [place] [address] Advice Only Social History Tobacco Use Types Packs/Day Years Used Date Smoking Tobacco: Never Smokeless Tobacco: Never Alcohol Use Standard Drinks/Week Comments Not Currently 0 (1 standard drink = 0.6 oz pur e alcohol) [facility] Utilities Answer Date Recorded In the past [...] declined 06/25/2024 How often do you attend mandaen or methodist serv ices? Patient declined 06/25/2024 Do you [...] Total Score - Questions 1-9 18 10/24 [facility] - Occupational Stress Questionnaire Answer Date [...] Sex Assigned at Female 11/22/2023 11:58 AM LINE SERVICER Legal Sex Female 11:34 PM CDT Gender Identity Female 11/22/2023 11:58 AM LINE SERVICER Sexual Orientation Not on file Occupation Industry Job Start Date Job End Date disabled Not on file Not on file Not on file documented as of this encounter Miscellaneous Notes * Telephone Encounter - Shaun Hall - 12/01/2024 11:05 AM LINE SERVICER Symptoms: Abdominal Pain - Female - Not , Diarrhea, swollen in legs, difficulty walking Outcome: Warm transfer to an emergent RN NOW! Reason: Severe pain now The caller accepted this outcome. SERVICER documented in this encounter Plan of Treatment Upcoming Encounters Date Type Department Care Team (Late st Contact Info) Description 06/30/2025 11:00 AM CDT Office Visit [facility] - Ear, Nose & Throat - [place] [address]2 [place] [address] Analia Meza MD #[address] [address] 07/03/2025 5:30 PM CDT [facility] [address] [place] [address] Analia Meza MD #[address] [address] Discharge Disposition: Discharged to home or Selfcare 07/17/2025 10:30 AM CDT [facility] - Pulmonology & Sleep Medicine - [place] #2 [facility] [place] [address] Michelle Mendes APRN, CNP #2 [facility] [address] [place] [address] 08/11/2025 9:45 AM CDT Office Visit [facility] - Endocrinology - [place] #2 [facility] [place] [address] Kirsten Niño MD #[address] [place] [address] documented as of this encounter Visit Diagnoses Not on filedocumented in this encounter Additional Health Concerns Assessment Noted Time PHQ-9 Depression Total Score: 18 024 10:00 AM LINE SERVICER documented as of this encounter Care Teams Physician Compensation Analyst Relationship Specialty Start Date End Date Marco Woods MD #2 [facility] [address] [place] [address] PCP - General Family Medicine 11/22/17 Kirsten Niño MD #2 [facility] [address] [place] [address] Consulting Physician Endocrinology 07/17/22 Chin Burrows MD #[address] [phone] Consulting Physician General Surgery 11/22/22 Michelle Mendes APRN, KILN MECHANIC #2 [facility] [address] [place] [address] Nurse Practitioner Advanced Practice Nurse 08/14/22 Chantelle Nix APRN, KILN MECHANIC #2 [place] [address] Nurse Practitioner Advanced Practice Nurse 02/19/24 Analia Meza MD #[address] [phone] Consulting Physician Otolaryngology 05/11/25 documented as of this encounter
--- OUTSIDE RECORDS SUMMARY | 2025-06-09 12:40 | XMS_ITS | Encounter Summary ---
Author Organization [facility] Address [address] [place] [address] Phone Care Team Providers Care Lead Medical Technologist Name Role Phone Marco Woods MD Primary Care Provider Kirsten Niño MD Unavailable Chin Burrows MD Unavailable Michelle Mendes SANDING MACHINE TENDER AUTOMATIC, WIDE AREA NETWORK ADMINISTRATOR Unavailable [phone] Chantelle Nix SANDING MACHINE TENDER AUTOMATIC, WIDE AREA NETWORK ADMINISTRATOR Unavailable Analia Meza MD Unavailable [phone] Reason for Visit * Reason Onset Date Comments Results 03/09/2025 Encounter Details Date Type Department Care Team (Late st Contact Info) Description 03/09/2025 Telephone [facility] [address] [place] [address] Marco Woods MD #2 [facility] [place] [address] Results Social History Tobacco Use Types Packs/Day Years Used Date Smoking Tobacco: Never Smokeless Tobacco: Never Alcohol Use Standard Drinks/Week Comments Not Currently 0 (1 standard drink = 0.6 oz pur e alcohol) [facility] Utilities Answer Date Recorded In the [...] How often do you attend mosque or catholic serv ices? Patient declined 06/25/2024 Do [...] 1-9 18 10/24 [facility] - Occupational Stress Questionnaire [...] time in the past 12 m [facility], were you homeless or living [...] Assigned at Female 11/22/2023 11:58 AM HEALTH CLAIMS EXAMINER Legal Sex Female 11:34 PM CDT Gender Identity Female 11/22/2023 11:58 AM HEALTH CLAIMS EXAMINER Sexual Orientation Not on file Occupation [...] Description 06/30/2025 11:00 AM CDT Office [facility] Medical [facility] - Ear, Nose & Throat - [place] #2 [place] [address] Analia Meza MD #[address] [address] 07/03/2025 5:30 PM CDT [facility] [address] [place] [address] Analia Meza MD #[address] [address] Discharge Disposition: Discharged to home or Selfcare 07/17/2025 10:30 AM CDT Office Visit [facility] Medical [facility] - Pulmonology & Sleep Medicine [facility] #2 [place] [address] Michelle Mendes APRN, WIDE AREA NETWORK ADMINISTRATOR #2 [facility] [address] [place] [address] 08/11/2025 9:45 AM CDT [facility] - Endocr[facility]ology - [place] #2 [place] [address] Kirsten Niño MD #[address] [address] documented as of this encounter Visit Diagnoses Not on filedocumented in this encounter Additional Health Concerns Assessment Noted Time PHQ-9 Depression Total Score: 18 024 10:00 AM HEALTH CLAIMS EXAMINER documented as of this encounter Care Teams Lead Medical Technologist Relationship Specialty Start Date End Date Marco Woods MD #[address] [address] PCP - General Family Medicine 11/22/17 Kirsten Niño MD #[address] [address] Consulting Physician Endocrinology 07/17/22 Chin Burrows MD #[address] [address] Consulting Physician General Surgery 11/22/22 Michelle Mendes APRN, WIDE AREA NETWORK ADMINISTRATOR #[address] [address] Nurse Practitioner Advanced Practice Nurse 08/14/22 Chantelle Nix APRN, WIDE AREA NETWORK ADMINISTRATOR #2 [place] [address] Nurse Practitioner Advanced Practice Nurse 02/19/24 Analia Meza MD #2 [place] [address] [place] [address] Consulting Physician Otolaryngology 05/11/25 documented as of this encounter
--- OUTSIDE RECORDS SUMMARY | 2025-06-09 12:40 | XMS_ITS | Encounter Summary ---
Author Organization [facility] Address [address] [place] [address] Phone Care Team Providers Care Technical Proposal Writer Name Role Phone Marco Woods MD Primary Care Provider Kirsten Niño MD Unavailable Chin Burrows MD Unavailable [phone] Michelle Mendes APRN, DIVE SUPERVISOR Unavailable Chantelle Nix APRN, DIVE SUPERVISOR Unavailable Analia Meza MD Unavailable [phone] Reason for Visit * Reason Comments Medication Refill Encounter Details Date Type Department Care Team (Late st Contact Info) Description 01/23/2024 Refill [facility] Medical Group - Family Medicine - [place] [address] [place] [address] Marco Woods MD [address] [address] Medication Refill Social History Tobacco Use Types Packs/Day Years Used Date Smoking Tobacco: Never Smokeless Tobacco: Never Alcohol Use Standard Drinks/Week Comments Not Currently 0 (1 standard drink = 0.6 oz pur e alcohol) [facility] Utilities Answer Date Recorded In the past 12 months has [employer] electric, gas, oil, or water company threatened [...] How often do you attend mormonism or jehovah's witness serv ices? Patient declined [...] Total Score - Questions 1-9 18 10/[address] [facility] - Occupational [...] Sex Assigned at Female 11/22/2023 11:58 AM FOAM TANK LAMINATOR Legal Sex Female 11:34 PM CDT Gender Identity Female 11/22/2023 11:58 AM FOAM TANK LAMINATOR Sexual Orientation Not on file Occupation Industry [...] 28 28 Tablet Maria Antonia Galeana MD [facility] - Alt... ATORVASTATIN CALCIUM 20 MG TABS 12/13/2023 21 21 Tablet Maria Antonia Galeana MD [facility] - Alt... ATORVASTATIN 20MG TABLETS 10/06/2023 90 90 Each Marco Woods MD [facility] #... documented in this encounter Plan of Treatment Upcoming Encounters Date Type Department Care Team (Late st Contact Info) Description 06/30/2025 11:00 AM CDT Office Visit [facility] Medical [facility] - Ear, Nose & Throat - [place] #[address] [place] [address] Analia Meza MD #[address] [phone] 07/03/2025 5:30 PM CD[facility] [address] [facility] [place] [address] Analia Meza MD #[address] [place] [address] Discharge Disposition: Discharged to home or Selfcare 07/17/2025 10:30 AM CDT Office Visit [facility] - Pulmonology & Sleep Medicine - [place] #2 [place] [address] Michelle Mendes APRN, DREW #2 [facility] [address] [place] [address] 08/11/2025 9:45 AM CDT Office Visit [facility] Medical [facility] - Endocrinology - [place] #2 [place] [address] Kirsten Niño MD #[address] [place] [address] documented as of this encounter Visit Diagnoses Not on filedocumented in this encounter Additional Health Concerns Infection Onset Date Last Indicated Resolved Time COVID - 19 06/25/2024 06/25/2024 06/25/2024 6:36 PM CDT Assessment Noted Time PHQ-9 Depression Total Score: 18 024 10:00 AM FOAM TANK LAMINATOR documented as of this encounter Care Teams Technical Proposal Writer Relationship Specialty Start Date End Date Marco Woods MD #2 [facility] [address] [place] [address] PCP - General Family Medicine 11/22/17 Kirsten Niño MD #2 [facility] [address] [place] [address] Consulting Physician Endocrinology 07/17/22 Chin Burrows MD #[address] [phone] Consulting Physician General Surgery 11/22/22 Michelle Mendes APRN, DIVE SUPERVISOR #2 [facility] [address] [place] [address] Nurse Practitioner Advanced Practice Nurse 08/14/22 Chantelle Nix APRN, DIVE SUPERVISOR #2 [place] [address] Nurse Practitioner Advanced Practice Nurse 02/19/24 Analia Meza MD #[address] [phone] Consulting Physician Otolaryngology 05/11/25 documented as of this encounter
--- OUTSIDE RECORDS SUMMARY | 2025-06-09 12:40 | XMS_ITS | Encounter Summary ---
Author Organization [facility] Address [address] [place] [address] Phone Care Team Providers Care Plug Cutting Machine Operator Name Role Phone Marco Woods MD Primary Care Provider [phone] Kirsten Niño MD Unavailable Chin Burrows MD Unavailable Michelle Mendes PRESS LEADER, JAVA PROGRAMMER Unavailable Chantelle Nix APRN, JAVA PROGRAMMER Unavailable Analia Meza MD Unavailable [phone] Encounter Details Date Type Department Care Team (Late st Contact Info) Description 03/04/2024 Telephone [facility] [address] [place] [address] Marco Woods MD #2 [facility] [place] [address] Social History Tobacco Use Types Packs/Day Years Used Date Smoking Tobacco: Never Smokeless Tobacco: Never Alcohol Use Standard Drinks/Week Comments Not Currently 0 (1 standard drink = 0.6 oz pur e alcohol) [facility] Utilities Answer Date Recorded In [...] declined 11/28/2023 How often do you attend judaism or restorationist serv ices? Patient declined 11/28/2023 Do you belong to any clubs o r organizations such as judaism groups, unions, fraternal or athletic groups, or [...] 18 10/24 [facility], [...] Sex Assigned at Female 11/22/2023 11:58 AM DATABASE REPORTING CONSULTANT Legal Sex Female 11:34 PM CDT Gender Identity Female 11/22/2023 11:58 AM DATABASE REPORTING CONSULTANT Sexual Orientation Not on file Occupation Industry Job Start Date Job End Date disabled Not on file Not on file Not on file documented as of this encounter Plan of Treatment Upcoming Encounters Date Type Department Care Team (Late st Contact Info) Description 06/30/2025 11:00 AM CDT [facility] - [facility]ose [facility] Th[facility]at [facility] #2 [facility] [place] [place] [address] Analia Meza MD #2 [facility] [address] [phone] 07/03/2025 5:30 PM CDT Appointment [facility] [address] [place] [address] Analia Meza MD #2 [facility] [address] [phone] Discharge Disposition: Discharged to home or Selfcare 07/17/2025 10:30 AM CDT [facility] - [place] #2 [facility] [place] [address] Michelle Mendes, PRESS LEADER, JAVA PROGRAMMER #2 [facility] [address] [place] [address] 08/11/2025 9:45 AM CDT [facility] Visit [facility] - Endocrinology - [place] #2 [place] [address] Kirsten Niño MD #[address] [address] documented as of this encounter Visit Diagnoses Not on filedocumented in this encounter Additional Health Concerns Infection Onset Date Last Indicated Resolved Time COVID - 19 06/25/2024 06/25/2024 06/25/2024 6:36 PM CDT Assessment Noted Time PHQ-9 Depression Total Score: 18 024 10:00 AM DATABASE REPORTING CONSULTANT documented as of this encounter Care Teams Plug Cutting Machine Operator Relationship Specialty Start Date End Date Marco Woods MD #[address] [address] PCP - General Family Medicine 11/22/17 Kirsten Niño MD #[address] [phone] Consulting Physician Endocrinology 07/17/22 Chin Burrows MD #[address] [address] Consulting Physician General Surgery 11/22/22 Michelle Mendes APRN, DREW #[address] [address] Nurse Practitioner Advanced Practice Nurse 08/14/22 Chantelle Nix APRN, DREW #2 [facility] [place] [address] Nurse Practitioner Advanced Practice Nurse 02/19/24 Analia Meza MD #2 [facility] [address] [phone] Consulting Physician Otolaryngology 05/11/25 documented as of this encounter
--- OUTSIDE RECORDS SUMMARY | 2025-06-09 12:40 | XMS_ITS | Encounter Summary ---
Author Organization [facility] Address [address] [place] [address] Phone Care Team Providers Care Occupational Safety Specialist Name Role Phone Marco Woods MD Primary Care Provider [phone] Kirsten Niño MD Unavailable Chin Burrows MD Unavailable [phone] Kelsea Root RN Unavailable Unavailable Michelle Mendes APRN, CRUSHER SETTER Unavailable Chantelle Nix APRN, CRUSHER SETTER Unavailable Analia Meza MD Unavailable [phone] Reason for Visit * Reason Comments Medication Refill Encounter Details Date Type Department Care Team (Late st Contact Info) Description 06/15/2021 Refill [facility] [address] [place] [address] Marco Woods MD #2 [facility] [place], [place] [id number] Medication Refill Social History Tobacco Use Types Packs/Day Years Used Date Smoking Tobacco: Never Smokeless Tobacco: Former Alcohol Use Standard Drinks/Week Comments Not Currently 0 (1 standard drink = 0.6 oz pur e alcohol) Sexually Active Control Partners Comments Not Currently Comments No Sex and Gender Information Value Date Recorded Sex Assigned at Female 11/22/2023 11:58 AM MILITARY SCIENCE TEACHER Legal Sex Female 11:34 PM CDT Gender Identity Female 11/22/2023 11:58 AM MILITARY SCIENCE TEACHER Sexual Orientation Not on file Occupation [...] [facility] 12/21/20 Telemedicine Mirtha Steiner APN, CRUSHER SETTER [facility] [place] 11/09/20 Office Visit Marco Woods MD [...] Group - Ear, Nose & Throat - [place] #2 [facility] [place] [address] Analia Meza MD #2 [facility] [place] [address] 07/03/2025 5:30 PM CDT Appointment [facility] [address] [facility] [phone] Analia Meza MD #[address] [phone] Discharge Disposition: Discharged to home or Selfcare 07/17/2025 10:30 AM CDT [facility] - [place] #2 [place] [address] Michelle Mendes APRN, DREW #2 [facility] [address] [place] [address] 08/11/2025 9:45 AM CDT Office Visit [facility] - Endocrinology - [place] #2 [place] [address] Kirsten Niño MD #[address] [address] documented as of this encounter Visit Diagnoses Not on filedocumented in this encounter Additional Health Concerns Infection Onset Date Last Indicated Resolved Time COVID - 19 06/29/2022 06/29/2022 07/09/2022 12:1 6 AM CDT COVID - 19 11/20/2022 11/20/2022 11/24/2022 8:51 AM MILITARY SCIENCE TEACHER COVID - 19 12/31/2022 12/31/2022 01/10/2023 12:1 8 AM CDT COVID - 19 Confirmed 12/31/2022 12/31/2022 023 12:17 AM CDT COVID - 19 06/01/2023 06/01/2023 06/01/2023 8:16 AM CDT COVID - 19 11/01/2023 11/01/2023 11/11/2023 12:1 6 AM MILITARY SCIENCE TEACHER COVID - 19 06/25/2024 06/25/2024 06/25/2024 6:36 PM CDT Assessment Noted Time PHQ-9 Depression Total Score: 0 11/22/19 10:00 AM MILITARY SCIENCE TEACHER documented as of this encounter Care Teams Occupational Safety Specialist Relationship Specialty Start Date End Date Marco Woods MD #2 [facility] [address] [place] [address] PCP - General Family Medicine 11/22/17 Kirsten Niño MD #2 [facility] [address] [place] [address] Consulting Physician Endocrinology 07/17/22 Chin Burrows MD #2 [facility] [address] [place] [address] Consulting Physician General Surgery 11/22/22 Kelsea Root RN [place] Autism Specialist 06/15/23 08/26/23 Michelle Mendes APRN, CRUSHER SETTER #2 [facility] [address] [place] [address] Nurse Practitioner Advanced Practice Nurse 08/14/22 Chantelle Nix APRN, CRUSHER SETTER #2 [place] [address] Nurse Practitioner Advanced Practice Nurse 02/19/24 Analia Meza MD #[address] [facility] [address] [address] Consulting Physician Otolaryngology 05/11/25 documented as of this encounter
--- OUTSIDE RECORDS SUMMARY | 2025-06-09 12:40 | XMS_ITS | Clinical Summary ---
Author Organization [facility] Address [address] [place] [address] Care Team Providers Care Infectious Diseases Physician Name Role Phone Nikhil Robles MD Primary Care Provider [phone] Allergies Active Allergy Reactions Criticality Noted Date [...] Nasal saline spray (Simply saline, Little Remedies, [place], [place]) 2 second sprays or 2 squeezes into [...] Type Department Care Team Description 04/17/2025 Telephone [facility] Orthopedics and Sports Medicine [address] [place] [address] Jamie Power MD 03/30/2025 Telephone [facility] Gastroenterology at [address] [place] [address] Mishel Hudson MA from Last [...] on file Legal Sex Female 6:03 PM LICENSED CLINICAL PSYCHOLOGIST Gender Identity Not on file Sexual Orientation Not on file Obstetrics History Last Filed Vital Signs Vital Sign Reading Time Taken Comments Blood Pressure 170/75 09/19/2023 10:51 AM LICENSED CLINICAL PSYCHOLOGIST Pulse 114 09/19/2023 2:00 PM LICENSED CLINICAL PSYCHOLOGIST Temperature 36.6 C (97.8 F) 09/19/2023 10:51 AM LICENSED CLINICAL PSYCHOLOGIST Respiratory Rate 18 09/19/2023 10:51 AM LICENSED CLINICAL PSYCHOLOGIST Oxygen Saturation 98% 09/19/2023 10:51 AM LICENSED CLINICAL PSYCHOLOGIST Inhaled Oxygen Concentration - - Weight 80.3 kg (177 lb) 09/18/2023 3:16 PM LICENSED CLINICAL PSYCHOLOGIST Height 157.5 cm (5' 2) 09/18/2023 3:16 PM LICENSED CLINICAL PSYCHOLOGIST Body Mass Index 32.37 09/18/2023 3:16 PM LICENSED CLINICAL PSYCHOLOGIST Plan of Treatment Health Maintenance Due Date [...] 06/19/2021, 08/30/2017, Additional history exists Insurance [facility] MEDICARE ADVANT[place] [id number] [place] [address] [place] [address] Advance Directives For more information, please contact: [phone] * Full Code (Latest Code Status on File) Date Activated Date Inactivated Comments 09/18/2023 2:35 PM 09/19/2023 6:39 PM * Full Code Date Activated Date Inactivated Comments 09/18/2023 12:47 PM 09/18/2023 2:35 PM Care Teams Infectious Diseases Physician Relationship Specialty Start Date End Date Nikhil Robles MD [address] [place] [address] PCP - General Emergency Medicine 03/12/24
--- OUTSIDE RECORDS SUMMARY | 2025-06-09 12:40 | XMS_ITS | Encounter Summary ---
Author Organization [facility] Address [address] [place] [address] Phone Care Team Providers Care Appliance Fixer Name Role Phone Marco Woods MD Primary Care Provider Kirsten Niño MD Unavailable Chin Burrows MD Unavailable Michelle Mendes APRN, POLE PEELER Unavailable Chantelle Nix APRN, POLE PEELER Unavailable Analia Meza MD Unavailable [phone] Reason for Visit * Reason Comments Medication Refill Encounter Details Date Type Department Care Team (Late st Contact Info) Description 01/03/2024 Refill [facility] Medical Group - Family Medicine - [place] #[address] [place] [address] Marco Woods MD [address] [address] Medication Refill Social History Tobacco Use Types Packs/Day Years Used Date Smoking Tobacco: Never Smokeless Tobacco: Never Alcohol Use Standard Drinks/Week Comments Not Currently 0 (1 standard drink = 0.6 oz pur e alcohol) [facility] Utilities Answer Date Recorded In the past 12 months has [employer], gas, oil, or water company threatened [...] How often do you attend tenriism or presybeterian serv ices? Patient declined 11/28/2023 Do you [...] Total Score - Questions 1-9 18 10/24 [facility] - Occupational Stress Questionnaire [...] Assigned at Female 11/22/2023 11:58 AM RESEARCH CHIEF ENGINEER Legal Sex Female 11:34 PM CDT Gender Identity Female 11/22/2023 11:58 AM RESEARCH CHIEF ENGINEER Sexual Orientation Not on file Occupation Industry Job Start Date Job End Date disabled Not on file Not on file Not on file documented as of this encounter Miscellaneous Notes * Telephone Encounter - Lila Chaparro RN - 01/03/2024 11:13 AM CDT Medication(s) [facility] and [facility] Medication Refill Standing Order for Pediatricand [...] Dept 12/05/23 Office Visit Marco Woods MD [facility] [place] 11/20/23 Office Visit Ronald Shaffer APRN, POLE PEELER [facility] [place] 10/10/23 Office Visit Rebecca Liu APRN, DREW [facility] [place] 08/24/23 Office Visit Ranjit Linder MD [facility] [place] 08/02/23 Office Visit Marco Woods MD [facility] [place] 05/01/23 Office Visit Marco Woods MD [facility] 04/18/23 Office Visit Marco Woods MD [facility] 04/03/23 Office Visit Marco Woods MD [facility] 03/12/23 Office Visit Marco Woods MD [facility] 03/05/23 Office Visit Mirtha Steiner APRN, [facility] [place] Showing recent visits within past 365 [...] Group - Ear, Nose & Throat - [place] #[address] [place] [address] Analia Meza MD #2 [facility] [address] [place] [address] 07/03/2025 5:30 PM CDT [facility] [address] [place] [address] Analia Meza MD #2 [facility] [address] [place] [address] Discharge Disposition: Discharged to home or Selfcare 07/17/2025 10:30 AM CDT [facility] - [place] #2 [facility] [place] [address] Michelle Mendes APRN, POLE PEELER #2 [facility] [address] [place] [address] 08/11/2025 9:45 AM CDT Office Visit [facility] - Endocrinology - [place] #2 [facility] [address] Kirsten Niño MD #[address] [place] [address] documented as of this encounter Visit Diagnoses Not on filedocumented in this encounter Additional Health Concerns Infection Onset Date Last Indicated Resolved Time COVID - 19 06/25/2024 06/25/2024 06/25/2024 6:36 PM CDT Assessment Noted Time PHQ-9 Depression Total Score: 18 024 10:00 AM RESEARCH CHIEF ENGINEER documented as of this encounter Care Teams Appliance Fixer Relationship Specialty Start Date End Date Marco Woods MD #2 [facility] [address] [place] [address] PCP - General Family Medicine 11/22/17 Kirsten Niño MD #2 [facility] [address] [place] [address] Consulting Physician Endocrinology 07/17/22 Chin Burrows MD #2 [place] [phone] Consulting Physician General Surgery 11/22/22 Michelle eMndes APRN, POLE PEELER #2 [facility] [address] [place] [address] Nurse Practitioner Advanced Practice Nurse 08/14/22 Chantelle Nix APRN, POLE PEELER #2 [place] [address] Nurse Practitioner Advanced Practice Nurse 02/19/24 Analia Meza MD #[address] [address] Consulting Physician Otolaryngology 05/11/25 documented as of this encounter
--- OUTSIDE RECORDS SUMMARY | 2025-06-09 12:40 | XMS_ITS | Encounter Summary ---
Author Organization [facility] Address [address] [place] [address] Phone Care Team Providers Care Activity Manager Name Role Phone Marco Woods MD Primary Care Provider Kirsten Niño MD Unavailable Chin Burrows MD Unavailable [phone] Kelsea Root RN Unavailable Unavailable Michelle Mendes APRN, SHREDDING SPECIALIST Unavailable Chantelle Nix APRN, SHREDDING SPECIALIST Unavailable Analia Meza MD Unavailable [phone] Reason for Visit * Reason Comments Medication Refill Encounter Details Date Type Department Care Team (Late st Contact Info) Description 10/17/2022 Refill [facility] Family [facility] #[address] [place] [phone] Marco Woods MD [address] [address] [address] Medication Refill Social History Tobacco Use Types Packs/Day Years Used Date Smoking Tobacco: Never Smokeless Tobacco: Never Alcohol Use Standard Drinks/Week Comments Not Currently 0 (1 standard drink = 0.6 oz pur e alcohol) Sexually Active Control Partners Comments Not Currently Comments No Sex and Gender Information Value Date Recorded Sex Assigned at Female 11/22/2023 11:58 AM HVAC PROJECT MANAGER Legal Sex Female 11:34 PM CDT Gender Identity Female 11/22/2023 11:58 AM HVAC PROJECT MANAGER Sexual Orientation Not on file Occupation Industry Job Start Date Job End Date disabled Not on file Not on file Not on file COVID-19 Exposure Response Date Recorded In the last 10 days, have yo u been in contact with someone who was confirmed or suspected to have Coronavirus/COVID-19? No / Unsure 10/11/2022 9:23 AM HVAC PROJECT MANAGER documented as of this encounter Miscellaneous Notes * Telephone Encounter - Maria Luz Sierra RN - 10/18/2022 8:37 AM CST duplicate PROJECT MANAGER documented in this encounter Plan of Treatment Upcoming Encounters Date Type Department Care Team (Late st Contact Info) Description 06/30/2025 11:00 AM CDT [facility] Visit [facility] - [facility], Nose & Throat - [place] #2 [place] [address] Analia Meza MD #[address] [address] 07/03/2025 5:30 PM CDT [facility] [address] [place] [address] Analia Meza MD #[address] [address] Discharge Disposition: Discharged to home or Selfcare 07/17/2025 10:30 AM CDT [facility] & [facility] #2 [place] [address] Michelle Mendes, BLACK OXIDE OPERATOR, SHREDDING SPECIALIST #2 [facility] [address] [place] [address] 08/11/2025 9:45 AM CDT [facility] Endocrinology - [place] #2 [place] [address] Kirsten Niño MD #[address] [address] [address] documented as of this encounter Visit Diagnoses Not on filedocumented in this encounter Additional Health Concerns Infection Onset Date Last Indicated Resolved Time COVID - 19 11/20/2022 11/20/2022 11/24/2022 8:51 AM HVAC PROJECT MANAGER COVID - 19 12/31/2022 12/31/2022 01/10/2023 12:1 8 AM CDT COVID - 19 Confirmed 12/31/2022 12/31/2022 023 12:17 AM CDT COVID - 19 06/01/2023 06/01/2023 06/01/2023 8:16 AM CDT COVID - 19 11/01/2023 11/01/2023 11/11/2023 12:1 6 AM HVAC PROJECT MANAGER COVID - 19 06/25/2024 06/25/2024 06/25/2024 6:36 PM CDT Assessment Noted Time PHQ-9 Depression Total Score: 0 11/22/19 10:00 AM HVAC PROJECT MANAGER documented as of this encounter Care Teams Activity Manager Relationship Specialty Start Date End Date Marco Woods MD #[address] [address] PCP - General Family Medicine 11/22/17 Kirsten Niño MD #[address] [phone] Consulting Physician Endocrinology 07/17/22 Chin Burrows MD #[address] [phone] Consulting Physician General Surgery 11/22/22 Kelsea Root RN [place] Accounts Receivable Representative 06/15/23 08/26/23 Michelle Mendes APRN, SHREDDING SPECIALIST #2 [facility] [address] [place] [address] Nurse Practitioner Advanced Practice Nurse 08/14/22 Chantelle Nix APRN, SHREDDING SPECIALIST #2 [place] [address] Nurse Practitioner Advanced Practice Nurse 02/19/24 Analia Meza MD #2 [facility] [address] [place] [address] Consulting Physician Otolaryngology 05/11/25 documented as of this encounter
--- OUTSIDE RECORDS SUMMARY | 2025-06-09 12:40 | XMS_ITS | Encounter Summary ---
Author Organization [facility] Address [address] [place] [address] Phone Care Team Providers Care Administrative Personal Assistant Name Role Phone Marco Woods MD Primary Care Provider [phone] Kirsten Niño MD Unavailable Chin Burrows MD Unavailable [phone] Michelle Mendes APRN, INVESTIGATION SPECIALIST Unavailable Chantelle Nix APRN, INVESTIGATION SPECIALIST Unavailable Analia Meza MD Unavailable [phone] Reason for Visit * Reason Comments Medication Refill Encounter Details Date Type Department Care Team (Late st Contact Info) Description 06/04/2025 Refill [facility] Medical Group - Family Medicine - [place] #[address] [place] [address] Marco Woods MD #[address] [address] Medication Refill Social History Tobacco Use Types Packs/Day Years Used Date Smoking Tobacco: Never Smokeless Tobacco: Never Alcohol Use Standard Drinks/Week Comments Not Currently 0 (1 standard drink = 0.6 oz pur e alcohol) [facility] Utilities Answer Date Recorded In the past 12 months has [employer] electric, gas, oil, or water company threatened [...] How often do you attend amish or gnosticism serv ices? Patient declined 06/25/2024 [...] 1-9 18 10/24 [facility] - Occupational Stress Questionnaire Answer [...] any time in the past 12 m [facility], were you homeless or living in a fpc (including now)? Patient unable to answer 06/25/2024 Education Answer Date Recorded What is the highest level of school you have completed or the highest degree you have received? 12th grade 04/03/2023 Sexually Active Control Partners Comments Not Currently Comments No Sex and Gender Information Value Date Recorded Sex Assigned at Female 11/22/2023 11:58 AM MANUSCRIPTS CURATOR Legal Sex Female 11:34 PM CDT Gender Identity Female 11/22/2023 11:58 AM MANUSCRIPTS CURATOR Sexual Orientation Not on file Occupation Industry Job Start Date Job End Date disabled Not on file Not on file Not on file documented as of this encounter Miscellaneous Notes * Telephone Encounter - Amada Orozco RN - 06/04/2025 10:03 AM CDT Images from the original note were not included. traMADol HCl Dispensed Days Supply Quantity Provider Pharmacy TRAMADOL 50MG TABLETS 05/20/2025 20 120 Each Marco Woods MD [facility] #... TRAMADOL 50MG TABLETS 04/30/2025 20 120 Each Mirtha Steiner APRN, CNP [facility] #... Medication failed the protocol, provider to review and approve the medication order if appropriate. Requested Prescriptions Pending Prescriptions Disp Refills traMADol (ULTRAM) 50 MG Tablet [Pharmacy Med Name: TRAMADOL 50MG TABLETS] 120 Tablet 0 Sig: TAKE 1 TO 2 TABLETS BY MOUTH EVERY 8 HOURS NEEDED FOR MODERATE TO SEVERE PAIN Not Delegated - Opioid Agonists Protocol Failed - 06/04/2025 10:03 AM Failed - This refill cannot be delegated Passed - Visit with relevant provider in past 12 months or upcoming 90 days Recent Visits Date Type Provider Dept 04/20/25 Office Visit Marco Woods MD [facility] 04/14/25 Office Visit Marco Woods MD [facility] 03/12/25 Office Visit Marco Woods MD [facility] 03/05/25 Office Visit Marco Woods MD [facility] 12/02/24 Office Visit Marco Woods MD [facility] 10/31/24 [facility] recent visits within past 365 days and meeting all other requirements Future Appointments Date Type Provider Dept 06/12/25 Appointment Marco Woods MD [facility] Showing future appointments within next 90 days and meeting all other requirements documented in this encounter Plan of Treatment Upcoming Encounters Date Type Department Care Team (Late st Contact Info) Description 06/30/2025 11:00 AM CDT Office Visit [facility] Medical Group - Ear, Nose & Throat - [place] #2 [place] [address] Analia Meza MD #2 [facility] [place] [address] [address] 07/03/2025 5:30 PM CD[facility] [address] [place] [address] Analia Meza MD #[address] [address] Discharge Disposition: Discharged to home or Selfcare 07/17/2025 10:30 AM CDT Office Visit [facility] - Pulmonology & [facility] Medicine [facility] #2 [place] [address] Michelle Mendes, HANDHOLE MACHINE OPERATOR, INVESTIGATION SPECIALIST #2 [facility] [address] [place] [address] 08/11/2025 9:45 AM CDT Office Visit [facility] - Endocrinology - [place] #2 [place] [address] Kirsten Niño MD #[address] [address] documented as of this encounter Visit Diagnoses Diagnosis Pain of upper abdomen Abdominal pain, other specified site documented in this encounter Additional Health Concerns Assessment Noted Time PHQ-9 Depression Total Score: 18 024 10:00 AM MANUSCRIPTS CURATOR documented as of this encounter Care Teams Administrative Personal Assistant Relationship Specialty Start Date End Date Marco Woods MD #[address] [address] PCP - General Family Medicine 11/22/17 Kirsten Niño MD #[address] [address] Consulting Physician Endocrinology 07/17/22 Chin Burrows MD #[address] [phone] Consulting Physician General Surgery 11/22/22 Michelle Mendes APRN, INVESTIGATION SPECIALIST #2 [facility] [address] [place] [address] Nurse Practitioner Advanced Practice Nurse 08/14/22 Chantelle Nix APRN, INVESTIGATION SPECIALIST #2 [place] [address] Nurse Practitioner Advanced Practice Nurse 02/19/24 Analia Meza MD #[address] [phone] Consulting Physician Otolaryngology 05/11/25 documented as of this encounter
--- OUTSIDE RECORDS SUMMARY | 2025-06-09 12:40 | XMS_ITS | Encounter Summary ---
Author Organization [facility] Address [address] [place] [address] Phone Care Team Providers Care Paper Stacker Name Role Phone Marco Woods MD Primary Care Provider [phone] Kirsten Niño MD Unavailable Chin Burrows MD Unavailable [phone] Michelle Mendes APRN, CHIEF DESIGN ENGINEER Unavailable [phone] Chantelle Nix APRN, CHIEF DESIGN ENGINEER Unavailable Analia Meza MD Unavailable [phone] Reason for Visit * Reason Comments Medication Refill Encounter Details Date Type Department Care Team (Late st Contact Info) Description 01/01/2024 Refill [facility] - Family Medicine - [place] #[address] [place] [address] Marco Woods MD #[address] [address] Medication Refill Social History Tobacco Use Types Packs/Day Years Used Date Smoking Tobacco: Never Smokeless Tobacco: Never Alcohol Use Standard Drinks/Week Comments Not Currently 0 (1 standard drink = 0.6 oz pur e alcohol) [facility] Utilities Answer Date Recorded In the past 12 months has [facility] electric, gas, oil, or water company threatened [...] How often do you attend religious or quaker serv ices? Patient declined 11/28/2023 [...] Total Score - Questions 1-9 18 10/24 [facility] - Occupational Stress Questionnaire [...] Sex Assigned at Female 11/22/2023 11:58 AM RAILROAD MAINTENANCE CLERK Legal Sex Female 11:34 PM CDT Gender Identity Female 11/22/2023 11:58 AM RAILROAD MAINTENANCE CLERK Sexual Orientation Not on file Occupation Industry Job Start Date Job End Date disabled Not on file Not on file Not on file documented as of this encounter Miscellaneous Notes * Telephone Encounter - Amada Orozco RN - 01/01/2024 2:40 PM CDT gned Yesterday (12/31/2023): Pkuauqueoku-Avxwdomdx-Dyvumv (Trelegy Ellipta) 100-62.5-25 MCG/ACT AEROSOL POWDER, BREATH ACTIVATED Sig: take 1 Puff by inhalation daily. Disp: 60 Each Refills: 3 Signed by: Michelle Mendes APRN CHIEF DESIGN ENGINEER documented in this encounter Plan of Treatment Upcoming Encounters Date Type Department Care Team (Late st Contact Info) Description 06/30/2025 11:00 AM CDT [facility] Visit [facility] - [facility]ose & Throat - [place] #2 [facility] [place] [address] Analia Meza MD #2 [facility] [address] [place] [address] 07/03/2025 5:30 PM CDT Appointment [facility] [address] [facility] [place] [address] Analia Meza MD #[address] [address] Discharge Disposition: Discharged to home or Selfcare 07/17/2025 10:30 AM CDT [facility] - [place] #2 [place] [address] Michelle Mendes APRN, CHIEF DESIGN ENGINEER #2 [facility] [address] [place] [address] 08/11/2025 9:45 AM CDT Office Visit [facility] - Endocrinology - [place] #2 [place] [address] Kirsten Niño MD #[address] [phone] documented as of this encounter Visit Diagnoses Not on filedocumented in this encounter Additional Health Concerns Infection Onset Date Last Indicated Resolved Time COVID - 19 06/25/2024 06/25/2024 06/25/2024 6:36 PM CDT Assessment Noted Time PHQ-9 Depression Total Score: 18 024 10:00 AM RAILROAD MAINTENANCE CLERK documented as of this encounter Care Teams Paper Stacker Relationship Specialty Start Date End Date Marco Woods MD #2 [facility] [address] [place] [address] PCP - General Family Medicine 11/22/17 Kirsten Niño MD #[address] [address] Consulting Physician Endocrinology 07/17/22 Chin Burrows MD #[address] [address] Consulting Physician General Surgery 11/22/22 Michelle Mendes APRN, CHIEF DESIGN ENGINEER #2 [facility] [address] [place] [address] Nurse Practitioner Advanced Practice Nurse 08/14/22 Chantelle Nix APRN, CHIEF DESIGN ENGINEER #2 [place] [address] Nurse Practitioner Advanced Practice Nurse 02/19/24 Analia Meza MD #[address] [address] Consulting Physician Otolaryngology 05/11/25 documented as of this encounter
--- OUTSIDE RECORDS SUMMARY | 2025-06-09 12:41 | XMS_ITS | Encounter Summary ---
Author Organization [facility] Address [address] [place] [address] Phone Care Team Providers Care Retort Operator Name Role Phone Marco Woods MD Primary Care Provider Kirsten Niño MD Unavailable Chin Burrows MD Unavailable Michelle Mendes SQUAD LEADER, MELON PACKER Unavailable Chantelle Nix SQUAD LEADER, MELON PACKER Unavailable Analia Meza MD Unavailable [phone] Encounter Details Date Type Department Care Team (Late st Contact Info) Description 04/12/2025 Results Follow-Up [facility] Medial [facility] - [facility] - [address] [place] [address] Jeniffer Devries APRN, MELON PACKER [address] [place] [address] POC GROUP A STREP BY MOLECULAR, POCT UA AUTOMATED W/O MICRO, VAGINITIS SCREEN, MOLECULAR Social History Tobacco Use Types Packs/Day Years Used Date Smoking Tobacco: Never Smokeless Tobacco: Never Alcohol Use Standard Drinks/Week Comments Not Currently 0 (1 standard drink = 0.6 oz pur e alcohol) [facility] Utilities Answer Date Recorded In the past 12 months has th e electric, gas, oil, or water [employer] threatened to shut off services in your home? Patient unable to answer 06/25/2024 Social Connection and Isolation Panel Answer Date Recorded In a typical week, how many times do you talk on the phone with family, friends, or neighbors? Patient declined 06/25/2024 How often do you get togethe r with friends or relatives? Patient declined 06/25/2024 How often do you attend bahai or roman catholic serv ices? Patient declined [...] 18 10/24 [facility] - Occupational Stress Questionnaire Answer [...] a mcfp (including now)? Patient declined 11/28/2023 Housing Stability [...] were you homeless or living in a mcfp (including now)? Patient unable to answer 06/25/2024 Education Answer Date Recorded What is the highest level of school you have completed or the highest degree you have received? 12th grade 04/03/2023 Sexually Active Control Partners Comments Not Currently Comments No Sex and Gender Information Value Date Recorded Sex Assigned at Female 11/22/2023 11:58 AM SUPERINTENDENT GEOPHYSICAL LABORATORY Legal Sex Female 11:34 PM CDT Gender Identity Female 11/22/2023 11:58 AM SUPERINTENDENT GEOPHYSICAL LABORATORY Sexual Orientation Not on file Occupation Industry Job Start Date Job End Date disabled Not on file Not on file Not on file documented as of this encounter Plan of Treatment Upcoming Encounters Date Type Department Care Team (Late st Contact Info) Description 06/30/2025 11:00 AM CDT [facility] - [facility] & Th[facility]at - [place] #2 [place] [address] Analia Meza MD #[address] [phone] 07/03/2025 5:30 PM CD[facility] [address] [place] [address] Analia Meza MD #[address] [phone] Discharge Disposition: Discharged to home or Selfcare 07/17/2025 10:30 AM CDT [facility] - [place] #2 [place] [address] Michelle Mendes APRN, MELON PACKER #[address] [address] 08/11/2025 9:45 AM CDT Office Visit [facility] - Endocrinology - [place] #2 [place] [address] Kirsten Niño MD #[address] [phone] documented as of this encounter Visit Diagnoses Not on filedocumented in this encounter Additional Health Concerns Assessment Noted Time PHQ-9 Depression Total Score: 18 024 10:00 AM SUPERINTENDENT GEOPHYSICAL LABORATORY documented as of this encounter Care Teams Retort Operator Relationship Specialty Start Date End Date Marco Wodos MD #2 [facility] [address] [place] [address] PCP - General Family Medicine 11/22/17 Kirsten Niño MD #2 [facility] [address] [place] [address] Consulting Physician Endocrinology 07/17/22 Chin Burrows MD #2 [facility] [address] [place] [address] Consulting Physician General Surgery 11/22/22 Michelle Mendes APRN, MELON PACKER #2 [facility] [address] [place] [address] Nurse Practitioner Advanced Practice Nurse 08/14/22 Chantelle Nix APRN, MELON PACKER #2 [place] [address] Nurse Practitioner Advanced Practice Nurse 02/19/24 Analia Meza MD #[address] [address] Consulting Physician Otolaryngology 05/11/25 documented as of this encounter
--- OUTSIDE RECORDS SUMMARY | 2025-06-09 12:41 | XMS_ITS | Encounter Summary ---
Author Organization [facility] Address [address] [place] [address] Phone Care Team Providers Care Agricultural Commodities Grader Name Role Phone Marco Woods MD Primary Care Provider Kirsten Niño MD Unavailable Chin Burrows MD Unavailable [phone] Kelsea Root RN Unavailable Unavailable Michelle Mendes APRN, BEAM MACHINE OPERATOR Unavailable Chantelle Nix APRN, BEAM MACHINE OPERATOR Unavailable Analia Meza MD Unavailable [phone] Reason for Visit * Reason Onset Date Comments Medication Management 07/24/2022 Encounter Details Date Type Department Care Team (Late st Contact Info) Description 07/24/2022 [facility] [address] [place] [address] Marco Woods MD #2 [facility] [place] [address] Medication Management Social History Tobacco Use Types Packs/Day Years Used Date Smoking Tobacco: Never Smokeless Tobacco: Former Alcohol Use Standard Drinks/Week Comments Not Currently 0 (1 standard drink = 0.6 oz pur e alcohol) Sexually Active Control Partners Comments Not Currently Comments No Sex and Gender Information Value Date Recorded Sex Assigned at Female 11/22/2023 11:[address] LIGHT CLEANER Legal Sex Female 11:34 PM CDT Gender Identity Female 11/22/2023 11:[address] LIGHT CLEANER Sexual Orientation Not on file Occupation Industry [...] Group - Ear, Nose & Throat - [place] #2 [place] [address] Analia Meza MD #[address] [phone] 07/03/2025 5:30 PM CDT [facility] [address] [place] [address] Analia Meza MD #[address] [address] Discharge Disposition: Discharged to home or Selfcare 07/17/2025 10:30 AM CDT [facility] - [place] #2 [place] [phone] Michelle Mendes APRN, BEAM MACHINE OPERATOR #2 [facility] [address] [place] [address] 08/11/2025 9:45 AM CDT Office Visit [facility] - Endocrinology - [place] #2 [place] [address] Kirsten Niño MD #[address] [place] [address] documented as of this encounter Visit Diagnoses Not on filedocumented in this encounter Additional Health Concerns Infection Onset Date Last Indicated Resolved Time COVID - 19 11/20/2022 11/20/2022 11/24/2022 8:[address] LIGHT CLEANER COVID - 19 12/31/2022 12/31/2022 01/10/2023 12:1 8 AM CDT COVID - 19 Confirmed 12/31/2022 12/31/2022 023 12:17 AM CDT COVID - 19 06/01/2023 06/01/2023 06/01/2023 8:16 AM CDT COVID - 19 11/01/2023 11/01/2023 11/11/2023 12:[address] LIGHT CLEANER COVID - 19 06/25/2024 06/25/2024 06/25/2024 6:36 PM CDT Assessment Noted Time PHQ-9 Depression Total Score: 0 11/22/19 18 10:[address] LIGHT CLEANER documented as of this encounter Care Teams Agricultural Commodities Grader Relationship Specialty Start Date End Date Marco Woods MD #2 [facility] [address] [place] [address] PCP - General Family Medicine 11/22/17 Kirsten Niño MD #2 [facility] [address] [place] [address] Consulting Physician Endocrinology 07/17/22 Chin Burrows MD #2 [facility] [address] [place] [address] Consulting Physician General Surgery 11/22/22 Kelsea Root RN [place] Research Project Manager 06/15/23 08/26/23 Michelle Mendes APRN, BEAM MACHINE OPERATOR #2 [facility] [address] [place] [address] Nurse Practitioner Advanced Practice Nurse 08/14/22 Chantelle Nix APRN, BEAM MACHINE OPERATOR #2 [place] [address] Nurse Practitioner Advanced Practice Nurse 02/19/24 Analia Meza MD #2 [facility] [address] [place] [address] Consulting Physician Otolaryngology 05/11/25 documented as of this encounter
--- OUTSIDE RECORDS SUMMARY | 2025-06-09 12:41 | XMS_ITS | Encounter Summary ---
Author Organization [facility] Address [address] [place] [address] Phone Care Team Providers Care Ingot Passer Name Role Phone Marco Woods MD Primary Care Provider Kirsten Niño MD Unavailable Chin Burrows MD Unavailable Kelsea Root RN Unavailable Unavailable Michelle Mendes APRN, DIVERSITY MANAGER Unavailable Chantelle Nix APRN, DIVERSITY MANAGER Unavailable Analia Meza MD Unavailable [phone] Reason for Visit * Reason Comments Medication Refill Encounter Details Date Type Department Care Team (Late st Contact Info) Description 07/16/2023 Refill [facility] - Family Medicine [facility] #[address] [place] [phone] Marco Woods MD #[address] [facility] [address] [address] Medication Refill Social History Tobacco Use Types [...] Sex Assigned at Female 11/22/2023 11:58 AM CONSTRUCTION QUALITY CONTROL MANAGER Legal Sex Female 11:34 PM CDT Gender Identity Female 11/22/2023 11:58 AM CONSTRUCTION QUALITY CONTROL MANAGER Sexual Orientation Not on file Occupation [...] Description 06/30/2025 11:00 AM CDT Office Visit [facility] - Ear, Nose & Throat [facility] #2 [facility] [address] Analia Meza MD #[address] [address] 07/03/2025 5:30 PM CD[facility] [place] [address] Analia Meza MD #[address] [address] Discharge Disposition: Discharged to home or Selfcare 07/17/2025 10:30 AM CDT [facility] #2 [place] [address] Michelle Mendes APRN, DIVERSITY MANAGER #2 [facility] [address] [place] [address] 08/11/2025 9:45 AM CDT [facility] Visit [facility] - Endocrinology - [place] #2 [place] [address] Kirsten Niño MD #2 [facility] [address] [place] [address] documented as of this encounter Visit Diagnoses Not on filedocumented in this encounter Additional Health Concerns Infection Onset Date Last Indicated Resolved Time COVID - 19 11/01/2023 11/01/2023 11/11/2023 12:1 6 AM CONSTRUCTION QUALITY CONTROL MANAGER COVID - 06/25/2024 06/25/2024 06/25/2024 6:36 PM CDT Assessment Noted Time PHQ-9 Depression Total Score: 0 11/22/19 18 10:00 AM CONSTRUCTION QUALITY CONTROL MANAGER documented as of this encounter Care Teams Ingot Passer Relationship Specialty Start Date End Date Marco Woods MD #[address] [address] PCP - General Family Medicine 11/22/17 Kirsten Niño MD #[address] [address] Consulting Physician Endocrinology 07/17/22 Chin Burrows MD #[address] [address] Consulting Physician General Surgery 11/22/22 Kelsea Root RN [place] Sack Repairer 06/15/23 08/26/23 Michelle Mendes APRN, DREW #[address] [place] [address] [address] Nurse Practitioner Advanced Practice Nurse 08/14/22 Chantelle Nix APRN, DREW #2 [facility] [place] [address] Nurse Practitioner Advanced Practice Nurse 02/19/24 Analia Meza MD #2 [facility] [address] [address] Consulting Physician Otolaryngology 05/11/25 documented as of this encounter
--- OUTSIDE RECORDS SUMMARY | 2025-06-09 12:41 | XMS_ITS | Encounter Summary ---
Author Organization [facility] Address [address] [place] [address] Phone Care Team Providers Care Residential Worker Name Role Phone Marco Woods MD Primary Care Provider Kirsten Niño MD Unavailable Chin Burrows MD Unavailable [phone] Kelsea Root RN Unavailable Unavailable Michelle Mendes APRN, CONFERENCE SERVICES MANAGER Unavailable Chantelle Nix APRN, CONFERENCE SERVICES MANAGER Unavailable Analia Meza MD Unavailable [phone] Reason for Visit * Reason Comments Medication Refill Encounter Details Date Type Department Care Team (Late st Contact Info) Description 01/22/2023 Refill [facility] - Endocrinology - [place] #[address] [place] [address] Kirsten Niño MD #[address] [address] Medication Refill Social History Tobacco Use Types Packs/Day Years Used Date Smoking Tobacco: Never Smokeless Tobacco: Never Alcohol Use Standard Drinks/Week Comments Not Currently 0 (1 standard drink = 0.6 oz pur e alcohol) Sexually Active Control Partners Comments Not Currently Comments No Sex and Gender Information Value Date Recorded Sex Assigned at Female 11/22/2023 11:58 AM HORSER UP Legal Sex Female 11:34 PM CDT Gender Identity Female 11/22/2023 11:58 AM HORSER UP Sexual Orientation Not on file Occupation Industry [...] Group - Ear, Nose & Throat - [place] #2 [place] [address] Analia Meza MD #[address] [phone] 07/03/2025 5:30 PM CD[facility] [address] [place] [address] Analia Meza MD #[address] [phone] Discharge Disposition: Discharged to home or Selfcare 07/17/2025 10:30 AM CDT [facility] - [place] #2 [place] [address] Michelle Mendes APRN, CONFERENCE SERVICES MANAGER #2 [facility] [address] [place] [address] 08/11/2025 9:45 AM CDT Office Visit [facility] - Endocrinology - [place] #2 [place] [address] Kirsten Niño MD #[address] [place] [address] documented as of this encounter Visit Diagnoses Not on filedocumented in this encounter Additional Health Concerns Infection Onset Date Last Indicated Resolved Time COVID - 19 06/01/2023 06/01/2023 06/01/2023 8:16 AM CDT COVID - 11/01/2023 11/01/2023 11/11/2023 12:1 6 AM HORSER UP COVID - 06/25/2024 06/25/2024 06/25/2024 6:36 PM CDT Assessment Noted Time PHQ-9 Depression Total Score: 0 11/22/19 10:00 AM HORSER UP documented as of this encounter Care Teams Residential Worker Relationship Specialty Start Date End Date Marco Woods MD #2 [facility] [address] [place] [address] PCP - General Family Medicine 11/22/17 Kirsten Niño MD #2 [facility] [address] [place] [address] Consulting Physician Endocrinology 07/17/22 Chin Burrows MD #2 [facility] [address] [place] [address] Consulting Physician General Surgery 11/22/22 Kelsea Root, JUWAN [place] Coat Cutter 06/15/23 08/26/23 Michelle Mendes APRN, CONFERENCE SERVICES MANAGER #2 [facility] [address] [place] [address] Nurse Practitioner Advanced Practice Nurse 08/14/22 Chantelle Nix APRN, CONFERENCE SERVICES MANAGER #2 [place] [address] Nurse Practitioner Advanced Practice Nurse 02/19/24 Analia Meza MD #2 [facility] [address] [address] Consulting Physician Otolaryngology 05/11/25 documented as of this encounter
--- OUTSIDE RECORDS SUMMARY | 2025-06-09 12:41 | XMS_ITS | Encounter Summary ---
Author Organization [facility] Address [address] [place] [address] Phone Care Team Providers Care Material Expeditor Name Role Phone Marco Woods MD Primary Care Provider Kirsten Niño MD Unavailable Chin Burrows MD Unavailable Kelsea Root RN Unavailable Unavailable Michelle Mendes APRN, AIRCRAFT RIGGING AND CONTROLS MECHANIC Unavailable Chantelle Nix APRN, AIRCRAFT RIGGING AND CONTROLS MECHANIC Unavailable Analia Meza MD Unavailable [phone] Reason for Visit * Reason Comments Medication Refill Encounter Details Date Type Department Care Team (Late st Contact Info) Description 03/30/2023 Refill [facility] Family Medicine [facility] #2 [place] [address] Mirtha Steiner APRN, AIRCRAFT RIGGING AND CONTROLS MECHANIC #[address] [address] Medication Refill Social History Tobacco Use Types Packs/Day Years Used Date Smoking Tobacco: Never Smokeless Tobacco: Never Alcohol Use Standard Drinks/Week Comments Not Currently 0 (1 standard drink = 0.6 oz pur e alcohol) Sexually Active Control Partners Comments Not Currently Comments No Sex and Gender Information Value Date Recorded Sex Assigned at Female 11/22/2023 11:58 AM BOOKY Legal Sex Female 11:34 PM CDT Gender Identity Female 11/22/2023 11:58 AM BOOKY Sexual Orientation Not on file Occupation Industry [...] [place] 03/05/23 Office Visit Mirtha Steiner APRN, [facility] [place] 02/07/23 Office Visit Marco Woods MD [facility] [place] 01/23/23 Office Visit Rebecca Liu APRN, [facility] [place] 12/05/22 Office Visit [facility] MD [facility] [place] 10/25/22 Office Visit [facility] [place] Showing recent visits within past 182 [...] 11:00 AM CDT Office Visit [facility] - Ear, Nose & Throat - [place] #2 [facility] [place] [address] Analia Meza MD #[address] [place] [address] 07/03/2025 5:30 PM CD[facility] [address] [place] [address] Analia Meza MD #[address] [phone] Discharge Disposition: Discharged to home or Selfcare 07/17/2025 10:30 AM CDT [facility] - Pulmonology & Sleep Medicine - [place] #2 [facility] [address] Michelle Mendes APRN, DREW #2 [facility] [address] [place] [address] 08/11/2025 9:45 AM CDT Office Visit [facility] - Endocrinology - [place] #2 [facility] [address] Kirsten Niño MD #2 [facility] [address] [place] [address] documented as of this encounter Visit Diagnoses Diagnosis Bipolar 1 disorder (HCC) Bipolar I disorder, most recent episode (or current) unspecified Anxiety Anxiety state, unspecified documented in this encounter Additional Health Concerns Infection Onset Date Last Indicated Resolved Time COVID - 19 06/01/2023 06/01/2023 06/01/2023 8:16 AM CDT COVID - 19 11/01/2023 11/01/2023 11/11/2023 12:1 6 AM BOOKY COVID - 19 06/25/2024 06/25/2024 06/25/2024 6:36 PM CDT Assessment Noted Time PHQ-9 Depression Total Score: 0 11/22/19 10:00 AM BOOKY documented as of this encounter Care Teams Material Expeditor Relationship Specialty Start Date End Date Marco Woods MD #2 [facility] [address] [place] [address] PCP - General Family Medicine 11/22/17 Kirsten Niño MD #2 [facility] [address] [place] [address] Consulting Physician Endocrinology 07/17/22 Chin Burrows MD #2 [facility] [address] [place] [address] Consulting Physician General Surgery 11/22/22 Kelsea Root RN [place] Vice President Global Digital Marketing 06/15/23 08/26/23 Michelle Mendes APRN, AIRCRAFT RIGGING AND CONTROLS MECHANIC #2 [facility] [address] [place] [address] Nurse Practitioner Advanced Practice Nurse 08/14/22 Chantelle Nix APRN, AIRCRAFT RIGGING AND CONTROLS MECHANIC #2 [place] [address] Nurse Practitioner Advanced Practice Nurse 02/19/24 Analia Meza MD #[address] [address] Consulting Physician Otolaryngology 05/11/25 documented as of this encounter
--- OUTSIDE RECORDS SUMMARY | 2025-06-09 12:41 | XMS_ITS | Encounter Summary ---
Author Organization [facility] Address [address] [place] [address] Phone Care Team Providers Care Heading Repairer Name Role Phone Marco Woods MD Primary Care Provider Kirsten Niño MD Unavailable Chin Burrows MD Unavailable Kelsea Root RN Unavailable Unavailable Michelle Mendes APRN, CHARGE OPERATOR Unavailable Chantelle Nix APRN, CHARGE OPERATOR Unavailable Analia Meza MD Unavailable [phone] Reason for Visit * Reason Comments Medication Refill Encounter Details Date Type Department Care Team (Late st Contact Info) Description 05/27/2023 [facility]ill [facility] #2 [place] [address] Mirtha Steiner APRN, CHARGE OPERATOR #[address] [address] Medication Refill Social History Tobacco [...] Sex Assigned at Female 11/22/2023 11:58 AM ACCOUNT RESOLUTION EXPERT Legal Sex Female 11:34 PM CDT Gender Identity Female 11/22/2023 11:58 AM ACCOUNT RESOLUTION EXPERT Sexual Orientation Not on file Occupation Industry [...] [place] 03/05/23 Office Visit Mirtha Steiner APRN, CHARGE OPERATOR [facility] [place] 02/07/23 Office Visit Marco Woods MD [facility] [place] 01/23/23 Office Visit Rebecca Liu APRN, CHARGE OPERATOR [facility] [place] 12/05/22 Office Visit Marco Woods MD [facility] 10/25/22 Office Visit Marco Woods MD [facility] [place] 08/29/22 Office Visit Ronald Shaffer APRN, DREW [facility] Showing recent visits within past 365 days and meeting all other requirements Future Appointments Date Type Provider Dept 08/02/23 Appointment Marco Woods MD [facility] [place] 08/07/23 Appointment Marco Woods MD [facility] Showing future appointments within next 90 days and meeting all other requirements documented in this encounter Plan of Treatment Upcoming Encounters Date Type Department Care Team (Late st Contact Info) Description 06/30/2025 11:00 AM CDT Office Visit [facility] Medical [facility] - Ear, Nose & Throat - [place] #2 [place] [address] Analia Meza MD #[address] [address] 07/03/2025 5:30 PM CDT [facility] [address] [place] [address] Analia Meza MD #[address] [place] [address] Discharge Disposition: Discharged to home or Selfcare 07/17/2025 10:30 AM CDT Office Visit [facility] Medical [facility] - Pulmonology & Sleep Medicine - [place] #2 [place] [address] Michelle Mendes APRN, CHARGE OPERATOR #2 [facility] [address] [place] [address] 08/11/2025 9:45 AM CDT Office Visit [facility] Medical [facility] - Endocrinology - [place] #2 [place] [address] Kirsten Niño MD #[address] [place] [address] documented as of this encounter Visit Diagnoses Diagnosis Anxiety Anxiety state, unspecified documented in this encounter Additional Health Concerns Infection Onset Date Last Indicated Resolved Time COVID - 19 06/01/2023 06/01/2023 06/01/2023 8:16 AM CDT COVID - 11/01/2023 11/01/2023 11/11/2023 12:1 6 AM ACCOUNT RESOLUTION EXPERT COVID - 06/25/2024 06/25/2024 06/25/2024 6:36 PM CDT Assessment Noted Time PHQ-9 Depression Total Score: 0 11/22/19 10:00 AM ACCOUNT RESOLUTION EXPERT documented as of this encounter Care Teams Heading Repairer Relationship Specialty Start Date End Date Marco Woods MD #2 [facility] [address] [place] [address] PCP - General Family Medicine 11/22/17 Kirsten Niño MD #2 [facility] [address] [place] [address] Consulting Physician Endocrinology 07/17/22 Chin Burrows MD #2 [facility] [address] [place] [address] Consulting Physician General Surgery 11/22/22 Kelsea Root RN [place] Information Technology Security Manager 06/15/23 08/26/23 Michelle Mendes APRN, CHARGE OPERATOR #2 [facility] [address] [place] [address] Nurse Practitioner Advanced Practice Nurse 08/14/22 Chantelle Nix APRN, CHARGE OPERATOR #2 [place] [address] Nurse Practitioner Advanced Practice Nurse 02/19/24 Analia Meza MD #2 [facility] [place] [address] [address] Consulting Physician Otolaryngology 05/11/25 documented as of this encounter
--- OUTSIDE RECORDS SUMMARY | 2025-06-09 12:41 | XMS_ITS | Encounter Summary ---
Author Organization [facility] Address [address] [place] [address] Phone Care Team Providers Care Band Machine Operator Name Role Phone Marco Woods MD Primary Care Provider Kirsten Niño MD Unavailable Chin Burrows MD Unavailable [phone] Kelsea Root RN Unavailable Unavailable Michelle Mendes APRN, LEATHER WHITENER Unavailable Chantelle Nxi APRN, LEATHER WHITENER Unavailable Analia Meza MD Unavailable [phone] Reason for Visit * Reason Comments Medication Refill Encounter Details Date Type Department Care Team (Late st Contact Info) Description 05/08/2023 Refill [facility] Medicine [facility] #[address] [place] [phone] Marco Woods MD [address] [facility] [address] [address] Medication Refill Social History Tobacco Use Types [...] Sex Assigned at Female 11/22/2023 11:58 AM CLEARANCE REPRESENTATIVE Legal Sex Female 11:34 PM CDT Gender Identity Female 11/22/2023 11:58 AM CLEARANCE REPRESENTATIVE Sexual Orientation Not on file Occupation Industry [...] CNP - 05/10/2023 10:28 PM CDT [place] MILK COLLECTOR reviewed, UDS reviewed. Approved * Telephone Encounter [...] [facility] 01/23/23 Office Visit Rebecca Liu, RESIDENT MEDICAL OFFICER, LEATHER WHITENER [facility] 12/05/22 Office Visit Marco Woods MD [facility] [place] 10/25/22 Office Visit Marco Woods MD [facility] [place] 08/29/22 Office Visit Ronald Shaffer APRN, DREW [facility] Showing recent visits within past 365 days and meeting all other requirements Future Appointments Date Type Provider Dept 08/02/23 Appointment Marco Woods MD [facility] [place] 08/07/23 Appointment Marco Woods MD [facility] Showing future appointments within next 90 days and meeting all other requirements documented in this encounter Plan of Treatment Upcoming Encounters Date Type Department Care Team (Late st Contact Info) Description 06/30/2025 11:00 AM CDT Office Visit [facility] - Ear, Nose & Throat - [place] #2 [place] [address] Analia Meza MD #[address] [address] 07/03/2025 5:30 PM CDT [facility] [address] [place] [address] Analia Meza MD #[address] [address] Discharge Disposition: Discharged to home or Selfcare 07/17/2025 10:30 AM CDT Office Visit [facility] Medical [facility] - Pulmonology & Sleep Medicine - [place] #2 [place] [address] Michelle Mendes, MADDY, LEATHER WHITENER #2 [facility] [address] [place] [address] 08/11/2025 9:45 AM CDT Office Visit [facility] - Endocrinology [facility] #2 [place] [address] Kirsten Niño MD #[address] [address] documented as of this encounter Visit Diagnoses Diagnosis Anxiety Anxiety state, unspecified documented in this encounter Additional Health Concerns Infection Onset Date Last Indicated Resolved Time COVID - 19 06/01/2023 06/01/2023 06/01/2023 8:16 AM CDT COVID - 11/01/2023 11/01/2023 11/11/2023 12:1 6 AM CLEARANCE REPRESENTATIVE COVID - 06/25/2024 06/25/2024 06/25/2024 6:36 PM CDT Assessment Noted Time PHQ-9 Depression Total Score: 0 11/22/19 10:00 AM CLEARANCE REPRESENTATIVE documented as of this encounter Care Teams Band Machine Operator Relationship Specialty Start Date End Date Marco Woods MD #[address] [address] PCP - General Family Medicine 11/22/17 Kirsten Niño MD #[address] [address] Consulting Physician Endocrinology 07/17/22 Chin Burrows MD #[address] [address] Consulting Physician General Surgery 11/22/22 Kelsea Root, RN [place] School Program Director 06/15/23 08/26/23 Michelle Mendes APRN, LEATHER WHITENER #2 [facility] [address] [place] [address] Nurse Practitioner Advanced Practice Nurse 08/14/22 Chantelle Nix APRN, LEATHER WHITENER #[address] [place] [address] Nurse Practitioner Advanced Practice Nurse 02/19/24 Analia Meza MD #[address] [facility] [address] [address] Consulting Physician Otolaryngology 05/11/25 documented as of this encounter
--- OUTSIDE RECORDS SUMMARY | 2025-06-09 12:41 | XMS_ITS | Encounter Summary ---
Author Organization [facility] Address [address] [place] [address] Phone Care Team Providers Care Bung Driver Name Role Phone Marco Woods MD Primary Care Provider [phone] Kirsten Niño MD Unavailable Chin Burrows MD Unavailable [phone] Kelsea Root RN Unavailable Unavailable Michelle Mendes APRN, HOTEL ASSISTANT MANAGER Unavailable Chantelle Nix APRN, HOTEL ASSISTANT MANAGER Unavailable Analia Meza MD Unavailable [phone] Encounter Details Date Type Department Care Team (Late st Contact Info) Description 06/05/2023 Telephone [facility] Med Surg [address] [place] [address] Sister Elisabeth Gonzalez RN [place] Social [...] Sex Assigned at Female 11/22/2023 11:58 AM COREMAKER SUPERVISOR Legal Sex Female 11:34 PM CDT Gender Identity Female 11/22/2023 11:58 AM COREMAKER SUPERVISOR Sexual Orientation Not on file Occupation [...] 11:00 AM CDT Office Visit [facility] - Ear, Nose & Throat [facility] #2 [place] [address] Analia Meza MD #[address] [phone] 07/03/2025 5:30 PM CD[facility] [place] [address] Analia Meza MD #[address] [address] Discharge Disposition: Discharged to home or Selfcare 07/17/2025 10:30 AM CDT [facility] #2 [place] [address] Michelle Mendes APRN, HOTEL ASSISTANT MANAGER #[address] [facility] [facility] [address] [place] [address] 08/11/2025 9:45 AM CDT Office Visit [facility] - Endocrinology [facility] #2 [place] [address] Kirsten Niño MD #2 [facility] [address] [place] [address] documented as of this encounter Visit Diagnoses Not on filedocumented in this encounter Additional Health Concerns Infection Onset Date Last Indicated Resolved Time COVID - 11/01/2023 11/01/2023 11/11/2023 12:1 6 AM COREMAKER SUPERVISOR COVID - 06/25/2024 06/25/2024 06/25/2024 6:36 PM CDT Assessment Noted Time PHQ-9 Depression Total Score: 0 11/22/19 10:00 AM COREMAKER SUPERVISOR documented as of this encounter Care Teams Bung Driver Relationship Specialty Start Date End Date Marco Woods MD #2 [facility] [address] [place] [address] PCP - General Family Medicine 11/22/17 Kirsten Niño MD #[address] [address] Consulting Physician Endocrinology 07/17/22 Chin Burrows MD #[address] [address] Consulting Physician General Surgery 11/22/22 Kelsea Root RN [place] Drywall Finisher Foreman 06/15/23 08/26/23 Michelle Mendes APRN, HOTEL ASSISTANT MANAGER #2 [facility] [address] [place] [address] Nurse Practitioner Advanced Practice Nurse 08/14/22 Chantelle Nix APRN, DREW #2 [place] [address] Nurse Practitioner Advanced Practice Nurse 02/19/24 Analia Meza MD #2 [facility] [address] [place] [address] Consulting Physician Otolaryngology 05/11/25 documented as of this encounter
--- OUTSIDE RECORDS SUMMARY | 2025-06-09 12:41 | XMS_ITS | Encounter Summary ---
Author Organization [facility] Address [address] [place] [address] Phone Care Team Providers Care Review Manager Name Role Phone Marco Woods MD Primary Care Provider [phone] Kirsten Niño MD Unavailable Chin Burrows MD Unavailable Michelle Mendes APRN, COMMERCIAL CREDIT SPECIALIST Unavailable [phone] Chantelle iNx APRN, COMMERCIAL CREDIT SPECIALIST Unavailable Analia Meza MD Unavailable [phone] Reason for Visit * Reason Comments Medication Refill Encounter Details Date Type Department Care Team (Late st Contact Info) Description 10/03/2024 Refill [facility] - Gastroenterology - [place] #2 [place] [address] Chantelle Nix APRN, COMMERCIAL CREDIT SPECIALIST #2 [place] [address] Medication Refill Social History Tobacco Use Types Packs/Day Years Used Date Smoking Tobacco: Never Smokeless Tobacco: Never Alcohol Use Standard Drinks/Week Comments Not Currently 0 (1 standard drink = 0.6 oz pur e alcohol) [facility] Utilities Answer Date Recorded In the past 12 months has [employer], gas, oil, or water company threatened to [...] How often do you attend bahai or congregational serv ices? Patient declined 06/25/2024 Do you [...] Questions 1-9 18 10/24 [facility] - Occupational [...] time in the past 12 m [facility], were you homeless or living in [...] Assigned at Female 11/22/2023 11:58 AM FOOD AND NUTRITION SUPERVISOR Legal Sex Female 11:34 PM CDT Gender Identity Female 11/22/2023 11:58 AM FOOD AND NUTRITION SUPERVISOR Sexual Orientation Not on file Occupation [...] Dept Phone 10/31/2024 11:15 AM Kirsten Niño [facility] - Endocrinology - [place] [phone] AND NUTRITION SUPERVISOR * Telephone Encounter - Denise Honeycutt RN - 10/06/2024 9:16 AM FOOD AND NUTRITION SUPERVISOR Medication refilled and signed [facility] medication standing order for pediatric and adult patients. AND NUTRITION SUPERVISOR documented in this encounter Plan of Treatment Upcoming Encounters Date Type Department Care Team (Late st Contact Info) Description 06/30/2025 11:00 AM CDT Office Visit [facility] - Ear, Nose & Throat [facility] #2 [place] [address] Analia Meza MD #2 [facility] [address] [address] 07/03/2025 5:30 PM CDT Appointment [facility] [address] [place] [address] Analia Meza MD #2 [facility] [address] [place] [address] Discharge Disposition: Discharged to home or Selfcare 07/17/2025 10:30 AM CDT Office Visit [facility] - Pulmonology & Sleep Medicine [facility] #2 [facility] [place] [address] Michelle Mendes APRN, COMMERCIAL CREDIT SPECIALIST #2 [facility] [address] [place] [address] 08/11/2025 9:45 AM CDT Office Visit [facility] Endocrinology - [place] #2 [facility] [place] [address] Kirsten Niño MD #[address] [address] documented as of this encounter Visit Diagnoses Diagnosis Chronic constipation Unspecified constipation documented in this encounter Additional Health Concerns Assessment Noted Time PHQ-9 Depression Total Score: 18 024 10:00 AM FOOD AND NUTRITION SUPERVISOR documented as of this encounter Care Teams Review Manager Relationship Specialty Start Date End Date Marco Woods MD #2 [facility] [address] [place] [address] PCP - General Family Medicine 11/22/17 Kirsten Niño MD #[address] [address] Consulting Physician Endocrinology 07/17/22 Chin Burrows MD #[address] [address] Consulting Physician General Surgery 11/22/22 Michelle Mendes APRN, COMMERCIAL CREDIT SPECIALIST #[address] [address] Nurse Practitioner Advanced Practice Nurse 08/14/22 Chantelle Nix APRN, COMMERCIAL CREDIT SPECIALIST #2 [place] [address] Nurse Practitioner Advanced Practice Nurse 02/19/24 Analia Meza MD #2 [facility] [address] [address] [phone] Consulting Physician Otolaryngology 05/11/25 documented as of this encounter
--- OUTSIDE RECORDS SUMMARY | 2025-06-09 12:41 | XMS_ITS | Encounter Summary ---
Author Organization [facility] Address [address] [place] [address] Phone Care Team Providers Care Public Relations Assistant Name Role Phone Marco Woods MD Primary Care Provider [phone] Kirsten Niño MD Unavailable Chin Burrows MD Unavailable [phone] Kelsea Root RN Unavailable Unavailable Michelle Mendes APRN, EQUINE MANAGER Unavailable [phone] Chantelle Nix APRN, EQUINE MANAGER Unavailable Analia Meza MD Unavailable [phone] Reason for Visit * Reason Comments Medication Refill Encounter Details Date Type Department Care Team (Late st Contact Info) Description 05/09/2023 Refill [facility] #[address] [place] [phone] Marco Woods MD #[address] [facility] [address] [address] Medication Refill Social History Tobacco Use Types [...] Sex Assigned at Female 11/22/2023 11:58 AM CAKE MAKER Legal Sex Female 11:34 PM CDT Gender Identity Female 11/22/2023 11:58 AM CAKE MAKER Sexual Orientation Not on file Occupation [...] reordered on 05/10/2023 by Mirtha Steiner APRN, EQUINE MANAGER. * Telephone Encounter - Amada Orozco RN [...] Throat - [place] #2 [place] [address] Analia Meza MD #2 [facility] [place] [address] [address] 07/03/2025 5:30 PM CD[facility] [address] [place] [address] Analia Meza MD #2 [facility] [address] [place] [address] Discharge Disposition: Discharged to home or Selfcare 07/17/2025 10:30 AM CDT [facility] [place] #2 [place] [address] Michelle Mendes APRN, EQUINE MANAGER #2 [facility] [address] [place] [address] 08/11/2025 9:45 AM CDT Office Visit [facility] - Endocrinology - [place] #2 [place] [address] Kirsten Niño MD #2 [facility] [address] [place] [address] documented as of this encounter Visit Diagnoses Diagnosis Anxiety Anxiety state, unspecified documented in this encounter Additional Health Concerns Infection Onset Date Last Indicated Resolved Time COVID - 19 06/01/2023 06/01/2023 06/01/2023 8:16 AM CDT COVID - 19 11/01/2023 11/01/2023 11/11/2023 12:1 6 AM CAKE MAKER COVID - 19 06/25/2024 06/25/2024 06/25/2024 6:36 PM CDT Assessment Noted Time PHQ-9 Depression Total Score: 0 11/22/19 18 10:00 AM CAKE MAKER documented as of this encounter Care Teams Public Relations Assistant Relationship Specialty Start Date End Date Marco Woods MD #2 [facility] [address] [place] [address] PCP - General Family Medicine 11/22/17 Kirsten Niño MD #[address] [phone] Consulting Physician Endocrinology 07/17/22 Chin Burrows MD #[address] [phone] Consulting Physician General Surgery 11/22/22 Kelsea Root RN [place] Photo Retoucher 06/15/23 08/26/23 Michelle Mendes APRN, EQUINE MANAGER #[facility] [address] [place] [address] Nurse Practitioner Advanced Practice Nurse 08/14/22 Chantelle Nix APRN, EQUINE MANAGER #2 [place] [address] Nurse Practitioner Advanced Practice Nurse 02/19/24 Analia Meza MD #2 [facility] [address] [address] Consulting Physician Otolaryngology 05/11/25 documented as of this encounter
--- OUTSIDE RECORDS SUMMARY | 2025-06-09 12:41 | XMS_ITS | Encounter Summary ---
Author Organization [facility] Address [address] [place] [address] Phone Care Team Providers Care Tobacco Grower Name Role Phone Marco Woods MD Primary Care Provider Kirsten Niño MD Unavailable Chin Burrows MD Unavailable Kelsea Root RN Unavailable Unavailable Michelle Mendes APRN, OPS ANALYST Unavailable Chantelle Nix AUTOMATIC BEADING LATHE OPERATOR, OPS ANALYST Unavailable Analia Meza MD Unavailable [phone] Encounter Details Date Type Department Care Team (Late st Contact Info) Description 01/03/2021 Transcribe Orders [facility] Ad[facility] 1 [facility] [place] [address] Denise Arenas, AUTOMATIC BEADING LATHE OPERATOR, OPS ANALYST 16 [facility] [address] [place] [address] long term care administrator use of drug (Primary Dx); Moderate depressed [...] Sex Assigned at Female 11/22/2023 11:58 AM GOLF SALES MANAGER Legal Sex Female 11:34 PM CDT Gender Identity Female 11/22/2023 11:58 AM GOLF SALES MANAGER Sexual Orientation Not on file Occupation [...] Group - Ear, Nose & Throat - [place] #2 [place] [address] Analia Meza MD #[address] [phone] 07/03/2025 5:30 PM CDT [facility]ment [facility] [address] [place] [address] Analia Meza MD #[address] [address] Discharge Disposition: Discharged to home or Selfcare 07/17/2025 10:30 AM CDT [facility] #2 [place] [address] Michelle Mendes, AUTOMATIC BEADING LATHE OPERATOR, OPS ANALYST #2 [facility] [address] [place] [address] 08/11/2025 9:45 AM CDT Office Visit [facility] - Endocrinology - [place] #[address] [place] [address] Kirsten Niño MD #[address] [address] documented as of this encounter Results * LITHIUM (01/05/2021 6:36 AM CDT) LITHIUM 0.7 0.6 - 1.2 mmol/L 01/05/2021 10:29 AM CDT [facility] Comment:Resulted from [facility]. Blood Venipuncture / Unknown 01/05/2021 6:36 AM CDT 01/05/2021 7:09 AM CDT us Denise Arenas AUTOMATIC BEADING LATHE OPERATOR, OPS ANALYST CHEMISTRY ORDERABLES Final Result [facility] #1 [place] [address] * (ABNORMAL) FOLIC ACID (FOLATE) (01/05/2021 6:36 AM CDT) FOLATE 19.6(H) 3.1 - 17.5 ng/mL 01/05/2021 8:08 AM CDT [facility] IS THE PATIENT REQUIRED TO BE FASTING? No 01/05/2021 8:08 AM CDT [facility] Blood Venipuncture / Unknown 01/05/2021 6:36 AM CDT 01/05/2021 7:09 AM CDT us Denise Subramaniany AUTOMATIC BEADING LATHE OPERATOR, OPS ANALYST CHEMISTRY ORDERABLES Final Result [facility] [address]1 [place] [address] * THYROXINE (T4) FREE (01/05/2021 6:36 AM CDT) Pathologist [facility] T4 FREE 1.0 0.9 - 1.7 ng/dL 01/05/2021 7:56 AM CDT [facility] Blood Venipuncture / Unknown 01/05/2021 6:36 AM CDT 01/05/2021 7:09 AM CDT us Denise Arenas AUTOMATIC BEADING LATHE OPERATOR, OPS ANALYST CHEMISTRY ORDERABLES Final Result [facility] [address] [place] [address] * (ABNORMAL) LIPID PANEL (01/05/2021 6:36 AM CDT) CHOLESTEROL 214(H) <=200 mg/dL 01/05/2021 7:56 AM CDT [facility] TRIGLYCERIDES 144 <150 mg/dL 01/05/2021 7:56 AM CDT [facility] HDL CHOLESTEROL 73.5 >40 mg/dL 7:56 AM CDT [facility] LDL 112 5 - 130 mg/dL 01/05/2021 7:56 AM CDT [facility] VLDL 29 5 - 55 mg/dL 01/05/2021 7:56 AM CDT [facility] CHOL/HDL RATIO 2.9 0.0 - 4.4 01/05/2021 7:56 AM CDT [facility] NON-HDL CHOLESTEROL 140.5(H) <130 mg/dL 01/05/2021 7:56 AM CDT [facility] IS THE PATIENT REQUIRED TO BE FASTING? No 01/05/2021 7:56 AM CDT [facility] Blood Venipuncture / Unknown 01/05/2021 6:36 AM CDT 01/05/2021 7:09 AM CDT us Denise Subramaniany AUTOMATIC BEADING LATHE OPERATOR, OPS ANALYST CHEMISTRY ORDERABLES Final Result Performing Organization Address City/[facility]/ZIP Co de Phone Number [facility] [address] [place] [address] * HEMOGLOBIN A1C W/ ESTIMATED GLUCOSE (01/05/2021 6:36 AM CDT) HGB-A1C 5.1 4.0 - 6.0 % 01/05/2021 7:24 AM CDT [facility] Est Average Glucose 99.7 mg/dL 01/05/2021 7:24 AM CDT [facility] Blood Venipuncture / Unknown 01/05/2021 6:36 AM CDT 01/05/2021 7:09 AM CDT Narrative [facility] - 01/05/2021 7:24 AM CDT HEMOGLOBIN A1C: DIABETIC PATIENTS: WELL-CONTROLLED: 6.2 - 7.0 INTERMEDIATE WELL-CONTROLLED: 7.0 - 9.0 POORLY-CONTROLLED: >9.0 Denise Arenas AUTOMATIC BEADING LATHE OPERATOR, OPS ANALYST CHEMISTRY ORDERABLES Final Result Performing Organization Address [facility] Co de Phone Number [facility] [address] [place] [address] documented in this encounter Visit Diagnoses Diagnosis retirement use of drug- Primary Encounter for long-term [...] - 19 11/20/2022 11/20/2022 11/24/2022 8:51 AM GOLF SALES MANAGER COVID - 19 12/31/2022 12/31/2022 01/10/2023 12:1 8 AM CDT COVID - 19 Confirmed 12/31/2022 12/31/2022 023 12:17 AM CDT COVID - 19 06/01/2023 06/01/2023 06/01/2023 8:16 AM CDT COVID - 19 11/01/2023 11/01/2023 11/11/2023 12:1 6 AM GOLF SALES MANAGER COVID - 19 06/25/2024 06/25/2024 06/25/2024 6:36 PM CDT Assessment Noted Time PHQ-9 Depression Total Score: 0 11/22/19 10:00 AM GOLF SALES MANAGER documented as of this encounter Care Teams Tobacco Grower Relationship Specialty Start Date End Date Marco Woods MD #2 [facility] [address] [place] [address] PCP - General Family Medicine 11/22/17 Kirsten Niño MD #2 [facility] [address] [place] [phone] Consulting Physician Endocrinology 07/17/22 Chin Burrows MD #2 [facility] [address] [place] [address] Consulting Physician General Surgery 11/22/22 Kelsea Root RN [place] Budget Assistant 06/15/23 08/26/23 Michelle Mendes APRN, OPS ANALYST #2 [facility] [address] [place] [address] Nurse Practitioner Advanced Practice Nurse 08/14/22 Chantelle Nix APRN, OPS ANALYST #[address] [place] [address] Nurse Practitioner Advanced Practice Nurse 02/19/24 Analia Meza MD #2 [facility] [address] [address] Consulting Physician Otolaryngology 05/11/25 documented as of this encounter
--- OUTSIDE RECORDS SUMMARY | 2025-06-09 12:41 | XMS_ITS | Encounter Summary ---
Author Organization [facility] Address [address] [place] [address] Phone Care Team Providers Care Certified Medical Asst Name Role Phone Marco Woods MD Primary Care Provider Kirsten Niño MD Unavailable Chin Burrows MD Unavailable Kelsea Root RN Unavailable Unavailable Michelle Mendes APRN, AIRPORT TRAFFIC CONTROLLER Unavailable [phone] Chantelle Nix APRN, AIRPORT TRAFFIC CONTROLLER Unavailable Analia Meza MD Unavailable [phone] Reason for Visit * Reason Comments Medication Refill Encounter Details Date Type Department Care Team (Late st Contact Info) Description 11/27/2020 Refill [facility] #[address] [place] [phone] Marco Woods MD #[address] [address] Medication Refill Social History Tobacco Use Types Packs/Day Years Used Date Smoking Tobacco: Never Smokeless Tobacco: Former Alcohol Use Standard Drinks/Week Comments Not Currently 0 (1 standard drink = 0.6 oz pur e alcohol) Sexually Active Control Partners Comments Not Currently Comments No Sex and Gender Information Value Date Recorded Sex Assigned at Female 11/22/2023 11:58 AM STEWARD DISHWASHER Legal Sex Female 11:34 PM CDT Gender Identity Female 11/22/2023 11:58 AM STEWARD DISHWASHER Sexual Orientation Not on file Occupation Industry Job Start Date Job End Date disabled Not on file Not on file Not on file COVID-19 Exposure Response Date Recorded In the last month, have you been in contact with someone who was confirmed or suspected to have Coronavirus / COVID-19? No / Unsure 11/09/2020 1:41 PM STEWARD DISHWASHER documented as of this encounter Miscellaneous Notes * Telephone Encounter - Marco Woods MD - 11/29/2020 6:52 AM CST Prescription approved. Please call in ARD DISHWASHER * Telephone Encounter - Reina Paulson RN [...] severity, unspecified whether complicated, unspecified whether persistent [facility] Medical Group - Family Medicine - Marco Menchaca MD 2 months ago Asthma, unspecified asthma severity, unspecified whether complicated, unspecified whether persistent [facility] Medical [facility] Marco Santacruz MD 5 months ago Preop examination [facility] Family [facility] Marco Santacruz MD 7 months ago Essential hypertension [facility] Medical [facility] Marco Santacruz MD 11 months ago Essential hypertension [facility] Medical [facility] Marco Santacruz MD Upcoming Appointments Future Appointments In [address] Mammography, [facility] In 3 weeks Kirsten Niño MD [facility] Medical Group - Endocrinology - [facility] In 1 month Adrien Montoya MD [facility] 2 months Marco Woods MD [facility] Medical Group - Family Medicine - [facility] AUTO SERVICE STATION ATTENDANT - Recent and Past Visits Recent Visits Date Type Provider Dept 11/09/20 Office Visit Marco Woods MD [facility] [place] 09/06/20 Office Visit [facility] [place] [facility]/20 Office Visit Marco Woods MD [facility] [place] 04/27/20 Office Visit [facility] [place] 12/24/19 Office Visit [facility] [place] 11/12/19 Office Visit Mirtha Steiner APN, AIRPORT TRAFFIC CONTROLLER [facility] 10/24/19 Office Visit Ronald Shaffer APN, AIRPORT TRAFFIC CONTROLLER [facility] Showing recent visits within past 460 days with a meds authorizing provider and meeting all other requirements Future Appointments Date Type Provider Dept 02/07/21 Appointment Marco Woods MD [facility] Showing future appointments within next 90 days with a meds authorizing provider and meeting all other requirements ARD DISHWASHER documented in this encounter Plan of Treatment Upcoming Encounters Date Type Department Care Team (Late st Contact Info) Description 06/30/2025 11:00 AM CDT Office Visit [facility] Medical [facility] - Ear, Nose & Throat - [place] #2 [facility] [place] [address] Analia Meza MD #[address] [address] 07/03/2025 5:30 PM CDT [facility]ment [facility] [place] [address] Analia Meza MD #[address] [phone] Discharge Disposition: Discharged to home or Selfcare 07/17/2025 10:30 AM CDT Office Visit [facility] - Pulmonology & Sleep Medicine [facility] #2 [place] [address] Michelle Mendes APRN, AIRPORT TRAFFIC CONTROLLER #2 [facility] [address] [place] [address] 08/11/2025 9:45 AM CDT Office Visit [facility] - Endocrinology - [place] #2 [place] [address] Kirsten Niño MD #2 [facility] [address] [place] [address] documented as of this encounter Visit Diagnoses Not on filedocumented in this encounter Additional Health Concerns Infection Onset Date Last Indicated Resolved Time COVID - 19 06/29/2022 06/29/2022 07/09/2022 12:1 6 AM CDT COVID - 19 11/20/2022 11/20/2022 11/24/2022 8:51 AM STEWARD DISHWASHER COVID - 19 12/31/2022 12/31/2022 01/10/2023 12:1 8 AM CDT COVID - 19 Confirmed 12/31/2022 12/31/2022 023 12:17 AM CDT COVID - 19 06/01/2023 06/01/2023 06/01/2023 8:16 AM CDT COVID - 19 11/01/2023 11/01/2023 11/11/2023 12:1 6 AM STEWARD DISHWASHER COVID - 19 06/25/2024 06/25/2024 06/25/2024 6:36 PM CDT Assessment Noted Time PHQ-9 Depression Total Score: 0 11/22/19 18 10:00 AM STEWARD DISHWASHER documented as of this encounter Care Teams Certified Medical Asst Relationship Specialty Start Date End Date Marco Woods MD #[address] [address] PCP - General Family Medicine 11/22/17 Kirsten Niño MD #[address] [phone] Consulting Physician Endocrinology 07/17/22 Chin Burrows MD #[address] [address] Consulting Physician General Surgery 11/22/22 Kelsea Root RN [place] Patient Office Rep 06/15/23 08/26/23 Michelle Mendes APRN, AIRPORT TRAFFIC CONTROLLER #[address] [address] Nurse Practitioner Advanced Practice Nurse 08/14/22 Chantelle Nix APRN, AIRPORT TRAFFIC CONTROLLER #2 [place] [address] Nurse Practitioner Advanced Practice Nurse 02/19/24 Analia Meza MD #2 [facility] [address] [address] Consulting Physician Otolaryngology 05/11/25 documented as of this encounter
--- OUTSIDE RECORDS SUMMARY | 2025-06-09 12:41 | XMS_ITS | Encounter Summary ---
Author Organization [facility] Address [address] [place] [address] Phone Care Team Providers Care Meter Repair Shop Supervisor Name Role Phone Marco Woods MD Primary Care Provider Kirsten Niño MD Unavailable Chin Burrows MD Unavailable [phone] Kelsea Root RN Unavailable Unavailable Michelle Mendes APRN, PLASTICS PLATER Unavailable Chantelle Nix APRN, PLASTICS PLATER Unavailable Analia Meza MD Unavailable [phone] Reason for Visit * Reason Comments Medication Refill Encounter Details Date Type Department Care Team (Late st Contact Info) Description 05/27/2023 Refill [facility] #[address] [place] [phone] Marco Woods MD #[address] [address] Medication Refill Social History Tobacco Use Types [...] Sex Assigned at Female 11/22/2023 11:58 AM PLATER SUPERVISOR Legal Sex Female 11:34 PM CDT Gender Identity Female 11/22/2023 11:58 AM PLATER SUPERVISOR Sexual Orientation Not on file Occupation [...] [place] 03/05/23 Office Visit Mirtha Steiner APRN, PLASTICS PLATER [facility] [place] 02/07/23 Office Visit Marco Woods MD [facility] [place] 01/23/23 Office Visit Rebecca Liu APRN, PLASTICS PLATER [facility] [place] 12/05/22 Office Visit Marco Woods MD [facility] [place] 10/25/22 Office Visit Marco Woods MD [facility] [place] 08/29/22 Office Visit Ronald Shaffer APRN, PLASTICS PLATER [facility] Showing recent visits within past 365 days and meeting all other requirements Future Appointments Date Type Provider Dept 08/02/23 Appointment Marco Woods MD [facility] [place] 08/07/23 Appointment Marco Woods MD [facility] Showing future appointments within next 90 days and meeting all other requirements documented in this encounter Plan of Treatment Upcoming Encounters Date Type Department Care Team (Late st Contact Info) Description 06/30/2025 11:00 AM CDT Office Visit [facility] Medical [facility] - Ear, Nose & Throat - [place] #2 [place] [phone] Analia Meza MD #[address] [phone] 07/03/2025 5:30 PM CDT [facility] [address] [place] [phone] Analia Meza MD #[address] [address] Discharge Disposition: Discharged to home or Selfcare 07/17/2025 10:30 AM CDT Office [facility] Medical [facility] - Pulmonology & Sleep Medicine - [place] #2 [place] [address] Michelle Mendes APRN, PLASTICS PLATER #2 [facility] [address] [place] [address] 08/11/2025 9:45 AM CDT Office Visit [facility] Medical [facility] - Endocrinology - [place] #2 [place] [address] Kirsten Niño MD #[address] [place] [address] documented as of this encounter Visit Diagnoses Diagnosis Primary insomnia Persistent disorder of initiating or maintaining sleep documented in this encounter Additional Health Concerns Infection Onset Date Last Indicated Resolved Time COVID - 19 06/01/2023 06/01/2023 06/01/2023 8:16 AM CDT COVID - 11/01/2023 11/01/2023 11/11/2023 12:1 6 AM PLATER SUPERVISOR COVID - 06/25/2024 06/25/2024 06/25/2024 6:36 PM CDT Assessment Noted Time PHQ-9 Depression Total Score: 0 11/22/19 10:00 AM PLATER SUPERVISOR documented as of this encounter Care Teams Meter Repair Shop Supervisor Relationship Specialty Start Date End Date Marco Woods MD #2 [facility] [address] [place] [address] PCP - General Family Medicine 11/22/17 Kirsten Niño MD #2 [facility] [address] [place] [address] Consulting Physician Endocrinology 07/17/22 Chin Burrows MD #2 [facility] [address] [place] [address] Consulting Physician General Surgery 11/22/22 Kelsea Root RN [place] [employer] 06/15/23 08/26/23 Michelle Mendes APRN, PLASTICS PLATER #2 [facility] [address] [place] [address] Nurse Practitioner Advanced Practice Nurse 08/14/22 Chantelle Nix APRN, PLASTICS PLATER #2 [place] [address] Nurse Practitioner Advanced Practice Nurse 02/19/24 Analia Meza MD #2 [facility] [address] [address] [address] Consulting Physician Otolaryngology 05/11/25 documented as of this encounter
--- OUTSIDE RECORDS SUMMARY | 2025-06-09 12:41 | XMS_ITS | Encounter Summary ---
Author Organization [facility] Address [address] [place] [address] Phone Care Team Providers Care Cardroom Hand Name Role Phone Marco Woods MD Primary Care Provider Kirsten Niño MD Unavailable Chin Burrows MD Unavailable Kelsea Root RN Unavailable Unavailable Michelle Mendes APRN, PRINCIPAL ACCOUNT CLERK Unavailable Chantelle Nix APRN, PRINCIPAL ACCOUNT CLERK Unavailable Analia Meza MD Unavailable [phone] Reason for Visit * Reason Comments Medication Refill Encounter Details Date Type Department Care Team (Late st Contact Info) Description 02/11/2022 Refill [facility] - Pulmonology & Sleep Medicine [facility] #2 [place] [phone] Michelle Mendes APRN, PRINCIPAL ACCOUNT CLERK #[address] [address] Medication Refill Social History Tobacco Use Types Packs/Day Years Used Date Smoking Tobacco: Never Smokeless Tobacco: Former Alcohol Use Standard Drinks/Week Comments Not Currently 0 (1 standard drink = 0.6 oz pur e alcohol) Sexually Active Control Partners Comments Not Currently Comments No Sex and Gender Information Value Date Recorded Sex Assigned at Female 11/22/2023 11:58 AM TEXTILE ARTIST Legal Sex Female 11:34 PM CDT Gender Identity Female 11/22/2023 11:58 AM TEXTILE ARTIST Sexual Orientation Not on file Occupation Industry [...] Mendes APRN, DREW [facility] [place] [address] 10/04/21 Office Visit Marco Woods MD [facility] [place] 08/08/21 Office Visit Michelle Mendes APRN, DREW [facility] [place] [address] 06/29/21 Office Visit Marco Woods MD [facility] 04/04/21 Office Visit Michelle Mendes APRN, DREW [facility] [place] [address] 03/25/21 Office Visit Marco Woods MD [facility] [place] 02/22/21 Office Visit Marco Woods MD [facility] [place] Showing recent visits within past 365 days and meeting all other requirements Future Appointments Date Type Provider Dept 04/19/22 Appointment Marco Woods MD [facility] [place] Showing future appointments within next 90 days and meeting all other requirements documented in this encounter Plan of Treatment Upcoming Encounters Date Type Department Care Team (Late st Contact Info) Description 06/30/2025 11:00 AM CDT Office Visit [facility] Medical Group - Ear, Nose & Throat - [place] #2 [place] [phone] Analia Meza MD #[address] [phone] 07/03/2025 5:30 PM CD[facility] [place] [address] Analia Meza MD #[address] [phone] Discharge Disposition: Discharged to home or Selfcare 07/17/2025 10:30 AM CDT Office Visit [facility] Medical [facility] - Pulmonology & Sleep Medicine - [place] #2 [place] [address] Michelle Mendes APRN, PRINCIPAL ACCOUNT CLERK #2 [facility] [address] [place] [address] 08/11/2025 9:45 AM CDT Office Visit [facility] - Endocrinology - [place] #2 [place] [phone] Kirsten Niño MD #[address] [phone] documented as of this encounter Visit Diagnoses Diagnosis PNAR (perennial non-allergic rhinitis) Chronic rhinitis documented in this encounter Additional Health Concerns Infection Onset Date Last Indicated Resolved Time COVID - 19 06/29/2022 06/29/2022 07/09/2022 12:1 6 AM CDT COVID - 19 11/20/2022 11/20/2022 11/24/2022 8:51 AM TEXTILE ARTIST COVID - 19 12/31/2022 12/31/2022 01/10/2023 12:1 8 AM CDT COVID - 19 Confirmed 12/31/2022 12/31/2022 023 12:17 AM CDT COVID - 19 06/01/2023 06/01/2023 06/01/2023 8:16 AM CDT COVID - 19 11/01/2023 11/01/2023 11/11/2023 12:1 6 AM TEXTILE ARTIST COVID - 19 06/25/2024 06/25/2024 06/25/2024 6:36 PM CDT Assessment Noted Time PHQ-9 Depression Total Score: 0 11/22/19 10:00 AM TEXTILE ARTIST documented as of this encounter Care Teams Cardroom Hand Relationship Specialty Start Date End Date Marco Woods MD #[address] [address] PCP - General Family Medicine 11/22/17 Kirsten Niño MD #[address] [address] Consulting Physician Endocrinology 07/17/22 Chin Burrows MD #[address] [address] Consulting Physician General Surgery 11/22/22 Kelsea Root RN [place] Supervisor Assembling 06/15/23 08/26/23 Michelle Mendes APRN, PRINCIPAL ACCOUNT CLERK #2 [facility] [address] [place] [address] Nurse Practitioner Advanced Practice Nurse 08/14/22 Chantelle Nix APRN, CNP #2 [place] [address] Nurse Practitioner Advanced Practice Nurse 02/19/24 Analia Meza MD #2 [facility] [address] [place] [address] Consulting Physician Otolaryngology 05/11/25 documented as of this encounter
--- OUTSIDE RECORDS SUMMARY | 2025-06-09 12:41 | XMS_ITS | Encounter Summary ---
Author Organization [facility] Address [address] [place] [address] Phone Care Team Providers Care Academic Guidance Specialist Name Role Phone Marco Woods MD Primary Care Provider Kirsten Niño MD Unavailable Chin Burrows MD Unavailable Michelle Mendes APRN, SCHEDULE MAKER Unavailable Chantelle Nix APRN, SCHEDULE MAKER Unavailable Analia Meza MD Unavailable [phone] Reason for Visit * Reason Comments Medication Refill Encounter Details Date Type Department Care Team (Late st Contact Info) Description 12/23/2024 [facility]ill [facility] - Gastroenterology - [place] #2 [place] [address] Chantelle Nix APRN, SCHEDULE MAKER #2 [place] [address] Medication Refill Social History Tobacco Use Types Packs/Day Years Used Date Smoking Tobacco: Never Smokeless Tobacco: Never Alcohol Use Standard Drinks/Week Comments Not Currently 0 (1 standard drink = 0.6 oz pur e alcohol) [facility] Utilities Answer Date Recorded In the past 12 months has [employer], gas, oil, or water company threatened to [...] declined 06/25/2024 How often do you attend judaism or episcopal serv ices? Patient declined 06/25/2024 [...] 1-9 18 10/24 [facility] [...] any time in the past 12 m [facility], were you homeless or living [...] Assigned at Female 11/22/2023 11:58 AM SMALL LOT OPERATOR Legal Sex Female 11:34 PM CDT Gender Identity Female 11/22/2023 11:58 AM SMALL LOT OPERATOR Sexual Orientation Not on file Occupation Industry Job Start Date Job End Date disabled Not on file Not on file Not on file documented as of this encounter Miscellaneous Notes * Telephone Encounter - Denise Honeycutt RN - 12/24/2024 8:23 AM SMALL LOT OPERATOR Medication refilled and signed per [facility] chronic medication standing order for pediatric and adult patients. L LOT OPERATOR documented in this encounter Plan of Treatment Upcoming Encounters Date Type Department Care Team (Late st Contact Info) Description 06/30/2025 11:00 AM CDT Office Visit [facility] - Ear, Nose & Throat - [place] #2 [place] [address] Analia Meza MD #[address] [address] 07/03/2025 5:30 PM CD[facility] [address] [place] [address] Analia Meza MD #[address] [address] Discharge Disposition: Discharged to home or Selfcare 07/17/2025 10:30 AM CDT Office Visit [facility] - Pulmonology & Sleep Medicine - [place] #2 [place] [address] Michelle Mendes APRN, CNP #2 [facility] [address] [place] [address] 08/11/2025 9:45 AM CDT Office Visit [facility] - Endocrinology - [place] #2 [place] [address] Kirsten Niño MD #[address] [address] documented as of this encounter Visit Diagnoses Diagnosis Chronic constipation Unspecified constipation documented in this encounter Additional Health Concerns Assessment Noted Time PHQ-9 Depression Total Score: 18 024 10:00 AM SMALL LOT OPERATOR documented as of this encounter Care Teams Academic Guidance Specialist Relationship Specialty Start Date End Date Marco Woods MD #2 [facility] [address] [place] [address] PCP - General Family Medicine 11/22/17 Kirsten Niño MD #2 [facility] [address] [place] [address] Consulting Physician Endocrinology 07/17/22 Chin Burrows MD #2 [facility] [address] [place] [address] Consulting Physician General Surgery 11/22/22 Michelle Mendes APRN, SCHEDULE MAKER #2 [facility] [address] [place] [address] Nurse Practitioner Advanced Practice Nurse 08/14/22 Chantelle Nix APRN, SCHEDULE MAKER #2 [place] [address] Nurse Practitioner Advanced Practice Nurse 02/19/24 Analia Meza MD #2 [facility] [address] [address] Consulting Physician Otolaryngology 05/11/25 documented as of this encounter
--- OUTSIDE RECORDS SUMMARY | 2025-06-09 12:41 | XMS_ITS | Encounter Summary ---
Author Organization [facility] Address [address] [place] [address] Phone Care Team Providers Care Resin Shaver Name Role Phone Marco Woods MD Primary Care Provider Kirsten Niño MD Unavailable Chin Burrows MD Unavailable Michelle Mendes APRN, CROP NUTRITION SCIENTIST Unavailable Chantelle Nix APRN, CROP NUTRITION SCIENTIST Unavailable Analia Meza MD Unavailable [phone] Reason for Visit * Reason Comments Medication Refill Encounter Details Date Type Department Care Team (Late st Contact Info) Description 07/07/2024 [facility]ill [facility] - Gastroenterology - [place] #2 [place] [address] Chantelle Nix APRN, CROP NUTRITION SCIENTIST #2 [place] [address] Medication Refill Social History Tobacco Use Types Packs/Day Years Used Date Smoking Tobacco: Never Smokeless Tobacco: Never Alcohol Use Standard Drinks/Week Comments Not Currently 0 (1 standard drink = 0.6 oz pur e alcohol) [facility] Utilities Answer Date Recorded In the past 12 months has [employer], gas, oil, or water company threatened to [...] declined 06/25/2024 How often do you attend gnosticism or buddhism serv ices? Patient declined 06/25/2024 Do you belong to any clubs o r organizations such as gnosticism groups, unions, fraternal or athletic groups, or [...] Questions 1-9 18 10/24 [facility] - Occupational Stress Questionnaire Answer [...] time in the past 12 m [facility], were you homeless or living in [...] Sex Assigned at Female 11/22/2023 11:58 AM LIFE CYCLE ASSESSMENT ANALYST Legal Sex Female 11:34 PM CDT Gender Identity Female 11/22/2023 11:58 AM LIFE CYCLE ASSESSMENT ANALYST Sexual Orientation Not on file Occupation Industry [...] 11:00 AM CDT Office Visit [facility] - Ear, Nose & Throat - [place] #2 [place] [address] Analia Meza MD #[address] [address] 07/03/2025 5:30 PM CDT [facility] [address] [facility] [place] [address] Analia Meza MD #[address] [address] Discharge Disposition: Discharged to home or Selfcare 07/17/2025 10:30 AM CDT [facility] - [place] #2 [place] [address] Michelle Mendes APRN, CNP #2 [facility] [address] [place] [address] 08/11/2025 9:45 AM CDT Office Visit [facility] - Endocrinology - [place] #2 [place] [address] Kirsten Niño MD #[address] [place] [address] documented as of this encounter Visit Diagnoses Diagnosis Chronic constipation Unspecified constipation documented in this encounter Additional Health Concerns Assessment Noted Time PHQ-9 Depression Total Score: 18 024 10:00 AM LIFE CYCLE ASSESSMENT ANALYST documented as of this encounter Care Teams Resin Shaver Relationship Specialty Start Date End Date Marco Woods MD [facility]2 [facility] [address] [place] [address] PCP - General Family Medicine 11/22/17 Kirsten Niño MD #2 [facility] [address] [place] [address] Consulting Physician Endocrinology 07/17/22 Chin Burrows MD #2 [facility] [address] [place] [address] Consulting Physician General Surgery 11/22/22 Michelle Mendes APRN, CROP NUTRITION SCIENTIST #2 [facility] [address] [place] [address] Nurse Practitioner Advanced Practice Nurse 08/14/22 Chantelle Nix APRN, CROP NUTRITION SCIENTIST #2 [place] [address] Nurse Practitioner Advanced Practice Nurse 02/19/24 Analia Meza MD #2 [facility] [address] [place] [address] Consulting Physician Otolaryngology 05/11/25 documented as of this encounter
--- OUTSIDE RECORDS SUMMARY | 2025-06-09 12:41 | XMS_ITS | Encounter Summary ---
Author Organization [facility] Address [address] [place] [address] Phone Care Team Providers Care High Speed Operator Name Role Phone Marco Woods MD Primary Care Provider Kirsten Niño MD Unavailable Chin Burrows MD Unavailable Kelsea Root RN Unavailable Unavailable Michelle Mendes APRN, SIGNAL MAINTAINER Unavailable [phone] Chantelle Nix APRN, SIGNAL MAINTAINER Unavailable Analia Meza MD Unavailable [phone] Reason for Visit * Reason Comments Medication Refill Encounter Details Date Type Department Care Team (Late st Contact Info) Description 12/26/2020 Refill [facility] [address] [place] [address] Mirtha Steiner APRN, SIGNAL MAINTAINER #2 [facility] [place] [address] Medication Refill Social History Tobacco Use Types Packs/Day Years Used Date Smoking Tobacco: Never Smokeless Tobacco: Former Alcohol Use Standard Drinks/Week Comments Not Currently 0 (1 standard drink = 0.6 oz pur e alcohol) Sexually Active Control Partners Comments Not Currently Comments No Sex and Gender Information Value Date Recorded Sex Assigned at Female 11/22/2023 11:58 AM UI SOFTWARE ENGINEER Legal Sex Female 11:34 PM CDT Gender Identity Female 11/22/2023 11:58 AM UI SOFTWARE ENGINEER Sexual Orientation Not on file Occupation Industry Job Start Date Job End Date disabled Not on file Not on file Not on file COVID-19 Exposure Response Date Recorded In the last month, have you been in contact with someone who was confirmed or suspected to have Coronavirus / COVID-19? No / Unsure 12/27/2020 8:52 AM UI SOFTWARE ENGINEER documented as of this encounter Miscellaneous Notes [...] Receipt confirmed by pharmacy (11/16/2020 10:27 AM UI SOFTWARE ENGINEER) amLODIPine (NORVASC) 5 MG Tablet [[id number]] 26 Status: Active Ordering user: Marco Woods MD 11/16/201026 Authorized by: Marco Woods MD Frequency: Daily 11/16/20 - Until Discontinued Released by: Marco Woods MD 11/16/207 Pharmacy [id number] [address] [place] [address] AT [facility] SOFTWARE ENGINEER documented in this encounter Plan of Treatment Upcoming Encounters Date Type Department Care Team (Late st Contact Info) Description 06/30/2025 11:00 AM CDT Office Visit [facility] - Ear, Nose & Throat - [place] #[address] [place] [address] Analia Meza MD #2 [place] [address] [place] [address] 07/03/2025 5:30 PM CDT [facility] [address] [place] [address] Analia Meza MD #2 [facility] [address] [place] [address] Discharge Disposition: Discharged to home or Selfcare 07/17/2025 10:30 AM CDT [facility] - [place] #2 [place] [address] Michelle Mendes APRN, SIGNAL MAINTAINER #2 [facility] [address] [place] [address] 08/11/2025 9:45 AM CDT Office Visit [facility] - Endocrinology - [place] #2 [place] [address] Kirsten Niño MD #2 [facility] [address] [place] [address] documented as of this encounter Visit Diagnoses Not on filedocumented in this encounter Additional Health Concerns Infection Onset Date Last Indicated Resolved Time COVID - 19 06/29/2022 06/29/2022 07/09/2022 12:1 6 AM CDT COVID - 19 11/20/2022 11/20/2022 11/24/2022 8:51 AM UI SOFTWARE ENGINEER COVID - 19 12/31/2022 12/31/2022 01/10/2023 12:1 8 AM CDT COVID - 19 Confirmed 12/31/2022 12/31/2022 023 12:17 AM CDT COVID - 19 06/01/2023 06/01/2023 06/01/2023 8:16 AM CDT COVID - 19 11/01/2023 11/01/2023 11/11/2023 12:1 6 AM UI SOFTWARE ENGINEER COVID - 19 06/25/2024 06/25/2024 06/25/2024 6:36 PM CDT Assessment Noted Time PHQ-9 Depression Total Score: 0 11/22/19 10:00 AM UI SOFTWARE ENGINEER documented as of this encounter Care Teams High Speed Operator Relationship Specialty Start Date End Date Marco Woods MD #2 [facility] [address] [place] [address] PCP - General Family Medicine 11/22/17 Kirsten Niño MD #2 [facility] [address] [place] [address] Consulting Physician Endocrinology 07/17/22 Chin Burrows MD #[address] [address] Consulting Physician General Surgery 11/22/22 Kelsea Root RN [place] Furnace Liner 06/15/23 08/26/23 Michelle Mendes APRN, SIGNAL MAINTAINER #2 [facility] [address] [place] [address] Nurse Practitioner Advanced Practice Nurse 08/14/22 Chantelle Nix APRN, SIGNAL MAINTAINER #2 [place] [address] Nurse Practitioner Advanced Practice Nurse 02/19/24 Analia Meza MD #[address] [address] Consulting Physician Otolaryngology 05/11/25 documented as of this encounter
--- OUTSIDE RECORDS SUMMARY | 2025-06-09 12:41 | XMS_ITS | Encounter Summary ---
Author Organization [facility] Address [address] [place] [address] Phone Care Team Providers Care Tractor Crane Engineer Name Role Phone Marco Woods MD Primary Care Provider Kirsten Niño MD Unavailable Chin Burrows MD Unavailable [phone] Kelsea Root RN Unavailable Unavailable Michelle Mendes APRN, REGULATORY AND COMPLIANCE TECHNICIAN Unavailable [phone] Chantelle Nix APRN, REGULATORY AND COMPLIANCE TECHNICIAN Unavailable Analia Meza MD Unavailable [phone] Reason for Visit * Reason Comments Medication Refill Encounter Details Date Type Department Care Team (Late st Contact Info) Description 09/03/2022 Refill [facility] - Cancer Center Oncology Services [address] [place] [address] Kirsten Niño MD #[address] [address] Medication Refill Social History Tobacco Use Types Packs/Day Years Used Date Smoking Tobacco: Never Smokeless Tobacco: Former Alcohol Use Standard Drinks/Week Comments Not Currently 0 (1 standard drink = 0.6 oz pur e alcohol) Sexually Active Control Partners Comments Not Currently Comments No Sex and Gender Information Value Date Recorded Sex Assigned at Female 11/22/2023 11:58 AM ANIMAL DAYCARE PROVIDER Legal Sex Female 11:34 PM CDT Gender Identity Female 11/22/2023 11:58 AM ANIMAL DAYCARE PROVIDER Sexual Orientation Not on file Occupation Industry Job Start Date Job End Date disabled Not on file Not on file Not on file COVID-19 Exposure Response Date Recorded In the last 10 days, have yo u been in contact with someone who was confirmed or suspected to have Coronavirus/COVID-19? No / Unsure 08/31/2022 8:58 AM ANIMAL DAYCARE PROVIDER documented as of this encounter Plan of Treatment Upcoming Encounters Date Type Department Care Team (Late st Contact Info) Description 06/30/2025 11:00 AM CDT [facility] - [facility]ose [facility] Throat - [place] #2 [place] [address] Analia Meza MD #[address] [address] 07/03/2025 5:30 PM CDT [facility] [address] [place] [address] Analia Meza MD #[address] [address] Discharge Disposition: Discharged to home or Selfcare 07/17/2025 10:30 AM CDT [facility] - [place] #2 [place] [address] Michelle Mendes APRN, REGULATORY AND COMPLIANCE TECHNICIAN #2 [facility] [address] [place] [address] 08/11/2025 9:45 AM CDT [facility] Visit [facility] - Endocrinology - [place] #2 [place] [address] Kirsten Niño MD #[address] [place] [address] documented as of this encounter Visit Diagnoses Not on filedocumented in this encounter Additional Health Concerns Infection Onset Date Last Indicated Resolved Time COVID - 19 11/20/2022 11/20/2022 11/24/2022 8:51 AM ANIMAL DAYCARE PROVIDER COVID - 19 12/31/2022 12/31/2022 01/10/2023 12:1 8 AM CDT COVID - 19 Confirmed 12/31/2022 12/31/2022 023 12:17 AM CDT COVID - 19 06/01/2023 06/01/2023 06/01/2023 8:16 AM CDT COVID - 19 11/01/2023 11/01/2023 11/11/2023 12:1 6 AM ANIMAL DAYCARE PROVIDER COVID - 19 06/25/2024 06/25/2024 06/25/2024 6:36 PM CDT Assessment Noted Time PHQ-9 Depression Total Score: 0 11/22/19 18 10:00 AM ANIMAL DAYCARE PROVIDER documented as of this encounter Care Teams Tractor Crane Engineer Relationship Specialty Start Date End Date Marco Woods MD #2 [facility] [address] [place] [address] PCP - General Family Medicine 11/22/17 Kirsten Niño MD #2 [facility] [address] [place] [address] Consulting Physician Endocrinology 07/17/22 Chin Burrows MD #2 [facility] [address] [place] [address] Consulting Physician General Surgery 11/22/22 Kelsea Root RN [place] Loss Prevention Supervisor 06/15/23 08/26/23 Michelle Mendes APRN, REGULATORY AND COMPLIANCE TECHNICIAN #2 [facility] [address] [place] [address] Nurse Practitioner Advanced Practice Nurse 08/14/22 Chantelle Nix APRN, REGULATORY AND COMPLIANCE TECHNICIAN #2 [place] [address] Nurse Practitioner Advanced Practice Nurse 02/19/24 Analia Meza MD #2 [facility] [address] [place] [address] Consulting Physician Otolaryngology 05/11/25 documented as of this encounter
--- OUTSIDE RECORDS SUMMARY | 2025-06-09 12:41 | XMS_ITS | Encounter Summary ---
Author Organization [facility] Address [address] [place] [address] Phone Care Team Providers Care Wheelabrator Operator Name Role Phone Marco Woods MD Primary Care Provider Kirsten Niño MD Unavailable Chin Burrows MD Unavailable Kelsea Root RN Unavailable Unavailable Michelle Mendes APRN, CONTINUOUS CRUSHER OPERATOR Unavailable Chantelle Nix APRN, CONTINUOUS CRUSHER OPERATOR Unavailable Analia Meza MD Unavailable [phone] Reason for Visit * Reason Comments Medication Refill Encounter Details Date Type Department Care Team (Late st Contact Info) Description 02/01/2023 Refill [facility] Gastroenterology - [place] #2 [place] [address] Deanna Leavitt Humera, PAC [address] [place] [address] Medication Refill Social History Tobacco Use Types Packs/Day Years Used Date Smoking Tobacco: Never Smokeless Tobacco: Never Alcohol Use Standard Drinks/Week Comments Not Currently 0 (1 standard drink = 0.6 oz pur e alcohol) Sexually Active Control Partners Comments Not Currently Comments No Sex and Gender Information Value Date Recorded Sex Assigned at Female 11/22/2023 11:58 AM TASSEL CLIPPER Legal Sex Female 11:34 PM CDT Gender Identity Female 11/22/2023 11:58 AM TASSEL CLIPPER Sexual Orientation Not on file Occupation Industry [...] Group - Ear, Nose & Throat - [place] #[address] [place] [address] Analia Meza MD #2 [place] [address] [address] 07/03/2025 5:30 PM CD[facility] [address] [place] [address] Analia Meza MD #2 [facility] [address] [place] [address] Discharge Disposition: Discharged to home or Selfcare 07/17/2025 10:30 AM CDT [facility] & Sleep Medicine - [place] #2 [place] [address] Michelle Mendes APRN, CONTINUOUS CRUSHER OPERATOR #2 [facility] [address] [place] [address] 08/11/2025 9:45 AM CDT Office Visit [facility] - Endocrinology - [place] #2 [place] [address] Kirsten Niño MD #[address] [address] documented as of this encounter Visit Diagnoses Diagnosis Gastroesophageal reflux disease without esophagitis Esophageal reflux documented in this encounter Additional Health Concerns Infection Onset Date Last Indicated Resolved Time COVID - 19 06/01/2023 06/01/2023 06/01/2023 8:16 AM CDT COVID - 19 11/01/2023 11/01/2023 11/11/2023 12:1 6 AM TASSEL CLIPPER COVID - 19 06/25/2024 06/25/2024 06/25/2024 6:36 PM CDT Assessment Noted Time PHQ-9 Depression Total Score: 0 11/22/19 10:00 AM TASSEL CLIPPER documented as of this encounter Care Teams Wheelabrator Operator Relationship Specialty Start Date End Date Marco Woods MD #2 [facility] [address] [place] [address] PCP - General Family Medicine 11/22/17 Kirsten Niño MD #2 [facility] [address] [place] [address] Consulting Physician Endocrinology 07/17/22 Chin Burrows MD #2 [facility] [address] [place] [address] Consulting Physician General Surgery 11/22/22 Kelsea Root RN [place] Remelt Sugar Boiler 06/15/23 08/26/23 Michelle Mendes APRN, CONTINUOUS CRUSHER OPERATOR #2 [facility] [address] [place] [address] Nurse Practitioner Advanced Practice Nurse 08/14/22 Chantelle Nix APRN, CONTINUOUS CRUSHER OPERATOR #2 [place] [address] Nurse Practitioner Advanced Practice Nurse 02/19/24 Analia Meza MD #2 [facility] [address] [address] Consulting Physician Otolaryngology 05/11/25 documented as of this encounter
--- OUTSIDE RECORDS SUMMARY | 2025-06-09 12:41 | XMS_ITS | Encounter Summary ---
Author Organization [facility] Address [address] [place] [address] Phone Care Team Providers Care Slate Splitting Supervisor Name Role Phone Marco Woods MD Primary Care Provider Kirsten Niño MD Unavailable Chin Burrows MD Unavailable Kelsea Root RN Unavailable Unavailable Michelle Mendes APRN, YOUTH CARE PROFESSIONAL Unavailable Chantelle Nix APRN, YOUTH CARE PROFESSIONAL Unavailable Analia Meza MD Unavailable [phone] Reason for Visit * Reason Comments Medication Refill Encounter Details Date Type Department Care Team (Late st Contact Info) Description 02/11/2023 Refill [facility] - Family Medicine [facility] [address] [place] [id number] Marco Woods MD [address] [address] Medication Refill Social History Tobacco Use Types Packs/Day Years Used Date Smoking Tobacco: Never Smokeless Tobacco: Never Alcohol Use Standard Drinks/Week Comments Not Currently 0 (1 standard drink = 0.6 oz pur e alcohol) Sexually Active Control Partners Comments Not Currently Comments No Sex and Gender Information Value Date Recorded Sex Assigned at Female 11/22/2023 11:58 AM DEVELOPMENTAL MATHEMATICS PROFESSOR Legal Sex Female 11:34 PM CDT Gender Identity Female 11/22/2023 11:58 AM DEVELOPMENTAL MATHEMATICS PROFESSOR Sexual Orientation Not on file Occupation [...] [place] 01/23/23 Office Visit Rebecca Liu APRN, YOUTH CARE PROFESSIONAL [facility] [place] 12/05/22 Office Visit Marco Woods MD [facility] [place] 10/25/22 Office Visit Marco Woods MD [facility] [place] 08/29/22 Office Visit Ronald Shaffer APRN, YOUTH CARE PROFESSIONAL [facility] [place] 07/12/22 Office Visit Jany Hernandez PAC [facility] [place] 06/23/22 Office Visit Marco Woods MD [facility] [place] 05/19/22 Office Visit Marco Woods MD [facility] [place] Showing recent visits within past 365 days and meeting all other requirements Future Appointments Date Type Provider Dept 04/26/23 Appointment Marco Woods MD [facility] [place] Showing future appointments within next 90 days and meeting all other requirements documented in this encounter Plan of Treatment Upcoming Encounters Date Type Department Care Team (Late st Contact Info) Description 06/30/2025 11:00 AM CDT [facility] - [facility] - [place] #2 [facility] [place] [address] Analia Meza MD #[address] [place] [address] 07/03/2025 5:30 PM CD[facility] [address] [facility] [place] [address] Analia Meza MD #[address] [address] Discharge Disposition: Discharged to home or Selfcare 07/17/2025 10:30 AM CDT [facility] - Pulmonology & Sleep Medicine - [place] #2 [place] [address] Michelle Mendes APRN, DREW #2 [facility] [address] [place] [address] 08/11/2025 9:45 AM CDT Office Visit [facility] - Endocrinology - [place] #2 [facility] [place] [address] Kirsten Niño MD #[address] [place] [address] documented as of this encounter Visit Diagnoses Not on filedocumented in this encounter Additional Health Concerns Infection Onset Date Last Indicated Resolved Time COVID - 19 06/01/2023 06/01/2023 06/01/2023 8:16 AM CDT COVID - 19 11/01/2023 11/01/2023 11/11/2023 12:1 6 AM DEVELOPMENTAL MATHEMATICS PROFESSOR COVID - 19 06/25/2024 06/25/2024 06/25/2024 6:36 PM CDT Assessment Noted Time PHQ-9 Depression Total Score: 0 11/22/19 10:00 AM DEVELOPMENTAL MATHEMATICS PROFESSOR documented as of this encounter Care Teams Slate Splitting Supervisor Relationship Specialty Start Date End Date Marco Woods MD #2 [facility] [address] [place] [address] PCP - General Family Medicine 11/22/17 Kirsten Niño MD #[address] [address] Consulting Physician Endocrinology 07/17/22 Chin Burrows MD #[address] [address] Consulting Physician General Surgery 11/22/22 Kelsea Root RN [place] Director Independent 06/15/23 08/26/23 Michelle Mendes APRN, YOUTH CARE PROFESSIONAL #2 [facility] [address] [place] [address] Nurse Practitioner Advanced Practice Nurse 08/14/22 Chantelle Nix APRN, YOUTH CARE PROFESSIONAL #2 [place] [address] Nurse Practitioner Advanced Practice Nurse 02/19/24 Analia Meza MD #[address] [address] Consulting Physician Otolaryngology 05/11/25 documented as of this encounter
--- OUTSIDE RECORDS SUMMARY | 2025-06-09 12:41 | XMS_ITS | Encounter Summary ---
Author Organization [facility] Address [address] [place] [address] Phone Care Team Providers Care Candy Wrapping Machine Operator Name Role Phone Marco Woods MD Primary Care Provider [phone] Kirsten Niño MD Unavailable Chin Burrows MD Unavailable Kelsea Root RN Unavailable Unavailable Michelle Mendes APRN, WEB PRODUCTION MANAGER Unavailable Chantelle Nix APRN, WEB PRODUCTION MANAGER Unavailable Analia Meza MD Unavailable [phone] Reason for Visit * Reason Comments Medication Refill Encounter Details Date Type Department Care Team (Late st Contact Info) Description 09/22/2022 Refill [facility] - Family Medicine [facility] [address] [place] [phone] Marco Woods MD [address] [address] Medication Refill Social History Tobacco Use Types Packs/Day Years Used Date Smoking Tobacco: Never Smokeless Tobacco: Former Alcohol Use Standard Drinks/Week Comments Not Currently 0 (1 standard drink = 0.6 oz pur e alcohol) Sexually Active Control Partners Comments Not Currently Comments No Sex and Gender Information Value Date Recorded Sex Assigned at Female 11/22/2023 11:58 AM DOBBY LOOM CHAIN PEGGER Legal Sex Female 11:34 PM CDT Gender Identity Female 11/22/2023 11:58 AM DOBBY LOOM CHAIN PEGGER Sexual Orientation Not on file Occupation Industry Job Start Date Job End Date disabled Not on file Not on file Not on file COVID-19 Exposure Response Date Recorded In the last 10 days, have yo u been in contact with someone who was confirmed or suspected to have Coronavirus/COVID-19? No / Unsure 09/16/2022 6:11 AM DOBBY LOOM CHAIN PEGGER documented as of this encounter Miscellaneous Notes [...] Dept 08/29/22 Office Visit Ronald Shaffer APRN, WEB PRODUCTION MANAGER [facility] 07/12/22 Office Visit Jany Hernandez, [facility] 06/23/22 Office Visit Marco Woods MD [facility] [place] 05/19/22 [facility] [place] 01/10/22 Office Visit Marco Woods MD [facility] [place] 10/04/21 Office Visit [facility] Showing recent visits within past 365 days and meeting all other requirements Future Appointments Date Type Provider Dept 10/25/22 Appointment Marco Woods MD [facility] Showing future appointments within next 90 days [...] Dept 08/29/22 Office Visit Ronald Shaffer APRN, WEB PRODUCTION MANAGER [facility]/23[facility]22 Office Visit Marco Woods MD [facility] [place] 05/19/22 Office Visit [facility] [place] 01/10/22 Office Visit Marco Woods MD [facility] Showing recent visits within past 270 days and meeting all other requirements Future Appointments Date Type Provider Dept 10/25/22 Appointment Marco Woods MD [facility] Showing future appointments within next 90 days and meeting all other requirements Passed - Blood pressure on record in past 12 months Clinician-entered: BP Readings from Last 3 Encounters: 09/12/22 140/84 08/29/22 134/70 08/28/22 118/78 Patient-entered: No data recorded Y LOOM CHAIN PEGGER documented in this encounter Plan of Treatment Upcoming Encounters Date Type Department Care Team (Late st Contact Info) Description 06/30/2025 11:00 AM CDT Office Visit [facility] - Ear, Nose & Throat - [place] #2 [place] [address] Analia Meza MD #[address] [address] 07/03/2025 5:30 PM CDT [facility] [address] [place] [address] Analia Meza MD #[address] [phone] Discharge Disposition: Discharged to home or Selfcare 07/17/2025 10:30 AM CDT [facility] - [facility] & [facility] - [place] #2 [place] [address] Michelle Mendes APRN, WEB PRODUCTION MANAGER #2 [facility] [address] [place] [address] 08/11/2025 9:45 AM CDT Office Visit [facility] - Endocrinology [facility] #2 [place] [address] Kirsten Niño MD #2 [facility] [address] [place] [phone] documented as of this encounter Visit Diagnoses Diagnosis Organic periodic limb movement sleep disorder documented in this encounter Additional Health Concerns Infection Onset Date Last Indicated Resolved Time COVID - 19 11/20/2022 11/20/2022 11/24/2022 8:51 AM DOBBY LOOM CHAIN PEGGER COVID - 19 12/31/2022 12/31/2022 01/10/2023 12:1 8 AM CDT COVID - 19 Confirmed 12/31/2022 12/31/2022 023 12:17 AM CDT COVID - 19 06/01/2023 06/01/2023 06/01/2023 8:16 AM CDT COVID - 19 11/01/2023 11/01/2023 11/11/2023 12:1 6 AM DOBBY LOOM CHAIN PEGGER COVID - 19 06/25/2024 06/25/2024 06/25/2024 6:36 PM CDT Assessment Noted Time PHQ-9 Depression Total Score: 0 11/22/19 10:00 AM DOBBY LOOM CHAIN PEGGER documented as of this encounter Care Teams Candy Wrapping Machine Operator Relationship Specialty Start Date End Date Marco Woods MD #2 [facility] [address] [place] [address] PCP - General Family Medicine 11/22/17 Kirsten Niño MD #2 [facility] [address] [place] [address] Consulting Physician Endocrinology 07/17/22 Chin Burrows MD #2 [facility] [address] [place] [phone] Consulting Physician General Surgery 11/22/22 Kelsea Root RN [place] Quality Assurance/R&D Lab Technician 06/15/23 08/26/23 Michelle Mendes APRN, WEB PRODUCTION MANAGER #2 [facility] [address] [place] [address] Nurse Practitioner Advanced Practice Nurse 08/14/22 Chantelle Nix APRN, WEB PRODUCTION MANAGER #2 [place] [address] Nurse Practitioner Advanced Practice Nurse 02/19/24 Analia Meza MD #[address] [phone] Consulting Physician Otolaryngology 05/11/25 documented as of this encounter
== END 2025-06-09 12:34 | disposition home or self-care (01) ==
PROVIDERS: PCP Internal Medicine; Visit Provider Nurse Practitioner Family
DX: R14.0 Abdominal distension (gaseous) (principal); R19.5 Other fecal abnormalities
CPT/HCPCS: 74250